=== PATIENT | male | born 1965 | race Caucasian/White ===

== ENCOUNTER 2022-11-01 16:05 | Inpatient (IN) | payer MEDICARE, MEDICAID, SELFPAY ==
[2022-11-01] VITALS (29 sets, daily range): BP systolic 106–159; BP diastolic 45–134; PULSE 38–111; RESP 15–35; TEMP 36.4–36.9; O2SAT 81–98; BMI 40.4
--- NOTE | ~2022-11-01 | XR_ITS ---
EXAMINATION: XR chest port-a-cath/central DATE: 11/12/2022 12:54 INDICATION: Central line placement. TECHNIQUE: A single frontal view of the chest was obtained. COMPARISON: Chest 2 views 11/09/2022, chest CT 11/01/2022 FINDINGS: There are small pleural effusions. There are airspace opacities in the perihilar regions an d at the lung bases. No pneumothorax. Cardiomegaly is noted. There is a left chest wall pacer with le ads in the right atrium and right ventricle. A right internal jugular central venous catheter is seen with tip in the superior vena cava. IMPRESSION: 1. Central line tip in the superior vena cava. 2. Airspace opacities in the perihilar regions and at the lung bases, likely combination of mild pulm onary edema and basilar atelectasis. 3. Small pleural effusions. 4. Cardiomegaly. Reviewed, dictated and finalized at location A. IMPRESSION: 1. Central line tip in the superior vena cava. 2. Airspace opacities in the perihilar regions and at the lung bases, likely co mbination of mild pulmonary edema and basilar atelectasis. 3. Small pleural effusions. 4. Cardiomegaly.
--- NOTE | ~2022-11-01 | XR_ITS ---
EXAMINATION: XR chest 1V portable DATE: 11/04/2022 05:24 INDICATION: intubated TECHNIQUE: frontal view of the chest was obtained. COMPARISON: Chest radiograph dated 11/03/22 FINDINGS: Endotracheal tube tip 4.1 cm above the huan. Nasogastric tube extends below the left hemidiaphragm with distal tip collimated off the study. Central venous catheter extending cephalad from the inferi or vena cava with distal tip in the right ventricle. Likely defibrillator leads projecting over the l eft and right lower chest. Diffuse hazy opacities throughout the right hemithorax with improvement in the more dense consolidati on in the lower lung zone consistent with decreasing likely small to moderate sized posterior layerin g right pleural effusion. There is also been decrease in hazy opacities in the left mid and lower chun g zone with obscuration of the left hemidiaphragm consistent with small left pleural effusion. Associ ated atelectasis and/or pneumonia in the lower lung zones. Cardiomegaly. IMPRESSION: 1. Decrease in now small to moderate right and small left pleural effusions with associated basilar a telectasis and/or pneumonia. 2. Cardiomegaly. Reviewed, dictated and finalized at location A. LE DEALER IMPRESSION: 1. Decrease in now small to moderate right and small left pleural effusions wit h associated basilar atelectasis and/or pneumonia. 2. Cardiomegaly.
--- NOTE | ~2022-11-01 | XR_ITS ---
Portable chest x-ray Comparison: 11/05/2022 Clinical History: Intubated Findings: Endotracheal tube and right IJ line are in satisfactory positions. Moderate right pleural effusion and small left pleural effusion present. Moderate to advanced pulmonary edema pattern presen t. Cardiomediastinal silhouette is stable, with pacemaker device. Bones and soft tissues are unremar kable. Impression: Support tubes, as above. Moderate right pleural effusion and small left pleural effusion. Moderate to advanced pulmonary edema pattern. Reviewed, dictated and finalized at location . TO PICKER Impression: Support tubes, as above. Moderate right pleural effusion and small left pleural effusion. Moderate to advanced pulmonary edema pattern.
--- NOTE | ~2022-11-01 | US_ITS ---
EXAMINATION: US renal BI DATE: 11/02/2022 17:41 INDICATION: XOCHITL TECHNIQUE: Multiple grayscale and Doppler ultrasound images of the kidneys were obtained. COMPARISON: None. FINDINGS: Exam mildly limited by body habitus. The right kidney measures 11.2 x 3.8 x 4.0 cm. The left kidney m easures 9.7 x 5.8 x 5.9 cm. The kidneys demonstrate normal parenchymal echogenicity. Somewhat limited visualization of the left kidney. There is no hydronephrosis. The bladder is empty and therefore not evaluated. IMPRESSION: Urinary bladder not visualized. Otherwise unremarkable renal sonogram findings. Reviewed, dictated and finalized at location K. T SERVICES OFFICER
--- NOTE | ~2022-11-01 | XR_ITS ---
EXAMINATION: XR fl guide central line place DATE: 11/12/2022 12:36 INDICATION: Permacatheter placement TECHNIQUE: 2 fluoroscopic images of the lower neck and upper chest were obtained during procedure per formed by Dr. Marcial. Radiologist was not present for the imaging or procedure. The amount of fluorosco py time used during this procedure was 0.2 minutes. COMPARISON: None. FINDINGS: Initial image demonstrates a wire likely via right axis extending into the superior vena cava along s ross a pair of cardiac pacemaker leads. This been replaced on the subsequent image with a large-bore r ight internal jugular central venous catheter with distal tip at the cephalad-most superior vena cava . Suggestion of a pleural effusion at the periphery of the right apex. No pneumothorax. IMPRESSION: 1. Fluoroscopy utilized during placement of a right internal jugular central venous catheter with dis román tip at the cephalad-most superior vena cava. See procedure note for further detail. Reviewed, dictated and finalized at location L. IMPRESSION: 1. Fluoroscopy utilized during placement of a right internal jugular central ve nous catheter with distal tip at the cephalad-most superior vena cava. See proc edure note for further detail.
--- NOTE | ~2022-11-01 | XR_ITS ---
EXAMINATION: XR chest port-a-cath/central DATE: 11/02/2022 11:12 INDICATION: Central line placement. TECHNIQUE: A single frontal view of the chest was obtained. COMPARISON: Chest CT 11/01/2022, chest single view at 9:30 AM FINDINGS: There are large right and small left pleural effusions. There are airspace opacities in rig ht lung and at left lung base. No pneumothorax. Cardiomegaly is noted. The endotracheal tube tip is 3 .0 cm above the huan. The nasogastric tube tip is beyond the inferior margin of the radiograph, but at least to the stomach. A right internal jugular central venous catheter is seen with tip in the patel perior vena cava. IMPRESSION: 1. Stable large right and small left pleural effusions. 2. Airspace opacities in right lung and at left lung base, consistent with atelectasis versus pneumon ia. Reviewed, dictated and finalized at location A. L DRILL PRESS OPERATOR IMPRESSION: 1. Stable large right and small left pleural effusions. 2. Airspace opacities in right lung and at left lung base, consistent with atel ectasis versus pneumonia.
--- NOTE | ~2022-11-01 | US_ITS ---
EXAMINATION: US abdomen limited DATE: 11/02/2022 17:41 INDICATION: Cirrhosis TECHNIQUE: Multiple grayscale and Doppler ultrasound images of limited portions of the abdomen were o btained. COMPARISON: None available. FINDINGS: Pancreas poorly visualized. The liver is enlarged with normal echogenicity and echotexture. No surface nodularity. Normal hepatopetal flow in the main portal vein. Gallbladder wall thickening to 7 mm. No stone or sludge. The common bile duct measures 8 mm. There was no sonographic Alba sign . IMPRESSION: Hepatomegaly. Gallbladder wall thickening, a nonspecific finding in the setting of liver disease. Dil ated common bile duct, correlate with biliary labs. Reviewed, dictated and finalized at location K. APPLICATIONS SPECIALIST IMPRESSION: Hepatomegaly. Gallbladder wall thickening, a nonspecific finding in the setting of liver disease. Dilated common bile duct, correlate with biliary labs.
--- NOTE | ~2022-11-01 | XR_ITS ---
EXAMINATION: XR chest 1V portable Exam Date/Time: 11/04/2022 19:50 OPTICAL ENGINEERING MANAGER HISTORY: pacemaker insertion Comparison: 11/04/2022 at 12:12 PM. RESULT: Lines, tubes, and devices: New left chest pacer with intact leads. Endotracheal tube terminating 4.7 cm above the huan. NG tube, subdiaphragmatic and terminating out of the [id number]. Right IJ ce ntral line terminating in the upper SVC. Lungs and pleura: Increased hazy opacification of the right hemithorax. No left pneumothorax. Improv ed aeration of the left lung with persistent basilar opacity. Moderate right pleural effusion. Small left pleural effusion. Cardiomediastinal silhouette: Stable. Other: No acute osseous or upper abdominal finding. IMPRESSION: Lines, tubes, and devices in good position. No evident pneumothorax. Persistent left basilar consolid ation/atelectasis. Worsening moderate right pleural effusion. Unchanged small left pleural effusion. Reviewed, dictated and finalized at location K. CAL ENGINEERING MANAGER IMPRESSION: Lines, tubes, and devices in good position. No evident pneumothorax. Persistent left basilar consolidation/atelectasis. Worsening moderate right pleural effus ion. Unchanged small left pleural effusion.
--- NOTE | ~2022-11-01 | XR_ITS ---
EXAMINATION: XR chest 2V DATE: 11/01/2022 16:29 INDICATION: Right pleural effusion TECHNIQUE: AP and lateral views of the chest are obtained. COMPARISON: None available FINDINGS: There are moderate size right and small left pleural effusions. There are airspace opacitie s of the lung bases and right midlung zone. There is no pneumothorax. There is mild thoracic spondylo sis. IMPRESSION: 1. Moderate size right and small left pleural effusions. 2. Airspace opacities of the lung bases and right midlung zone, likely atelectasis. Reviewed, dictated and finalized at location F. AGE TIER IMPRESSION: 1. Moderate size right and small left pleural effusions. 2. Airspace opacities of the lung bases and right midlung zone, likely atelecta sis.
--- NOTE | ~2022-11-01 | CT_ITS ---
EXAMINATION: CT diagnostic chest wo con DATE: 11/01/2022 16:55 INDICATION: Right pleural effusion TECHNIQUE: Computed tomography (CT) of the chest was performed without intravenous contrast. The dose -length product (DLP) was 938.97 mGy-cm. Automated exposure control and iterative reconstruction tech nique were employed. COMPARISON: None FINDINGS: There are moderate size right and small left pleural effusions. There is moderate atelectas is of the right middle and lower lobes. There is mild atelectasis of the left lower lobe. There is mi ld bilateral gynecomastia. There is a 1.7 x 1.4 cm cystic area in the upper outer aspect of the left anterior chest wall. There is enlargement of the main and central pulmonary arteries, consistent with pulmonary hypertension. There is no pneumothorax. Cardiomegaly is noted. There is calcified coronary artery atherosclerosis. There is moderate annular calcification of the aortic and mitral valves. The re is a small volume of ascites visualized in the upper abdomen. There is mild thoracic spondylosis. IMPRESSION: 1. Moderate size right and small left pleural effusions. 2. Moderate atelectasis of the right middle and lower lobes and mild atelectasis of the left lower lo be. 3. Small volume of ascites in the upper abdomen. Reviewed, dictated and finalized at location F. H RICE TENDER IMPRESSION: 1. Moderate size right and small left pleural effusions. 2. Moderate atelectasis of the right middle and lower lobes and mild atelectasi s of the left lower lobe. 3. Small volume of ascites in the upper abdomen.
--- NOTE | ~2022-11-01 | XR_ITS ---
EXAMINATION: XR chest 1V portable DATE: 11/03/2022 06:29 INDICATION: Intubated TECHNIQUE: frontal view of the chest was obtained. COMPARISON: Chest radiograph dated 11/02/22 FINDINGS: Endotracheal tube tip 2.7 cm above the huan. Nasogastric tube extends below the left hemidiaphragm with distal tip collimated off the study. Central venous catheter extends cephalad from the inferior vena cava with distal tip near the apex of the right ventricle. Diffuse hazy airspace opacity throughout the right lung compared to lesser degree in the left midlung zone. More dense retrocardiac consolidation the left lower lung zone note the lateral right lower veena ng zone. No pneumothorax. Cardiomegaly. IMPRESSION: 1. Moderate sized right and small left pleural effusions with associated basilar atelectasis and/or p neumonia. 2. Cardiomegaly. Reviewed, dictated and finalized at location A. ISH LANGUAGE LECTURER IMPRESSION: 1. Moderate sized right and small left pleural effusions with associated basila r atelectasis and/or pneumonia. 2. Cardiomegaly.
--- NOTE | ~2022-11-01 | XR_ITS ---
EXAMINATION: XR chest 1V portable DATE: 11/04/2022 12:29 INDICATION: Central line placement. TECHNIQUE: A single frontal view of the chest was obtained on 2 radiographs. COMPARISON: Chest single view 11/04/2022 at 4:57 AM, chest CT 11/01/2022 FINDINGS: There are airspace opacities in all lung zones bilaterally. There are moderate-sized right and small pleural effusions. No pneumothorax. Cardiomegaly is noted. The endotracheal tube tip is 3.3 cm above the huan. The nasogastric tube tip is beyond the inferior margin of the radiograph, but a t least to the stomach. A right internal jugular central venous catheter is seen with tip in the supe rior vena cava. IMPRESSION: 1. Central line tip in superior vena cava. 2. Moderate-sized right and small left pleural effusions. 3. Diffuse lung disease, likely at least predominantly posterior atelectasis. Pulmonary edema or pneu monia cannot be excluded. 4. Cardiomegaly. Reviewed, dictated and finalized at location A. L RIGHTS REPRESENTATIVE IMPRESSION: 1. Central line tip in superior vena cava. 2. Moderate-sized right and small left pleural effusions. 3. Diffuse lung disease, likely at least predominantly posterior atelectasis. P ulmonary edema or pneumonia cannot be excluded. 4. Cardiomegaly.
--- NOTE | ~2022-11-01 | XR_ITS ---
EXAMINATION: XR chest ET placement, XR abdomen NG/feed tube insert DATE: 11/02/2022 06:02 INDICATION: Vomiting. Endotracheal tube placement. TECHNIQUE: 1.Portable AP view of the chest was obtained. 2. Portable AP view of the abdomen was obtained. COMPARISON: Chest radiograph and CT dated 11/01/2022 FINDINGS: Chest: Endotracheal tube tip 3.7 cm above the huan. Diffuse hazy airspace opacities in the right mid and upper lung zones with more dense consolidation in the bilateral lower lung zones, right greater than left. This includes bilateral small pleural effusions. No pneumothorax. Size is normal. Abdomen: Nasogastric tube tip in proximal side port in the body of the stomach. No dilated gas-filled loops of bowel in the visualized abdomen. IMPRESSION: 1. Endotracheal tube and nasogastric tube in expected positions. 2. Persistent small left and moderate-sized right pleural effusions. 3. Unchanged consolidation in the lower lung zones, right greater than left, which could represent at electasis or pneumonia. Reviewed, dictated and finalized at location A. DERING CLERK IMPRESSION: 1. Endotracheal tube and nasogastric tube in expected positions. 2. Persistent small left and moderate-sized right pleural effusions. 3. Unchanged consolidation in the lower lung zones, right greater than left, wh ich could represent atelectasis or pneumonia.
--- NOTE | ~2022-11-01 | XR_ITS ---
Portable chest x-ray Comparison: 11/04/2022 Clinical History: Intubated Findings: Endotracheal tube, NG tube, and right IJ line are in satisfactory positions. Probable mode rate pulmonary edema pattern with moderate right pleural effusion and small left pleural effusion. Pr obable left lower lobe atelectasis. Cardiomediastinal silhouette is stable, with pacemaker device. B ones and soft tissues are unremarkable. Impression: Moderate pulmonary edema pattern with bilateral pleural effusions, right greater than left, and assoc iated left lower lobe atelectasis. Support tubes and pacemaker device, as above. Reviewed, dictated and finalized at location . H MOSS OPERATOR Impression: Moderate pulmonary edema pattern with bilateral pleural effusions, right greate r than left, and associated left lower lobe atelectasis. Support tubes and pacemaker device, as above.
--- NOTE | ~2022-11-01 | XR_ITS ---
EXAMINATION: XR chest 2V DATE: 11/09/2022 10:31 INDICATION: Shortness of breath. TECHNIQUE: Frontal and lateral views of the chest were obtained. COMPARISON: Chest single view 11/06/2022, CT abdomen and pelvis 11/01/2022 FINDINGS: There are small pleural effusions. There are airspace opacities at the lung bases. No pneum othorax. Cardiomegaly is noted. There is a left chest wall pacer with leads in the right atrium and r ight ventricle. A right internal jugular central venous catheter is seen with tip in the superior lisbet a cava. IMPRESSION: 1. Small pleural effusions with interval improvement. 2. Airspace opacities at the lung bases with interval improvement, likely atelectasis. 3. Cardiomegaly. Reviewed, dictated and finalized at location A. IMPRESSION: 1. Small pleural effusions with interval improvement. 2. Airspace opacities at the lung bases with interval improvement, likely atele ctasis. 3. Cardiomegaly.
--- NOTE | ~2022-11-01 | US_ITS ---
EXAMINATION: US venous doppler [facility] DATE: 11/02/2022 17:41 INDICATION: Acute renal failure . TECHNIQUE: Grayscale images without and with compression and Doppler images of the bilateral lower ex tremity veins were obtained. COMPARISON: None FINDINGS: The right common femoral vein, profunda (deep) femoral vein, femoral vein, popliteal vein, peroneal v ein, posterior tibial veins, gastrocnemius vein, and greater saphenous vein are patent. The left common femoral vein, profunda femoral vein, femoral vein, popliteal vein, peroneal vein, pos terior tibial veins, gastrocnemius vein, and greater saphenous vein are patent. IMPRESSION: 1. Patent bilateral lower extremity veins. No evidence of deep venous thrombosis. Reviewed, dictated and finalized at location K. ILE MACHINERY INSTRUCTOR IMPRESSION: 1. Patent bilateral lower extremity veins. No evidence of deep venous thrombos is.
--- NOTE | 2022-11-01 16:08 | ECG_ITS ---
Measurements Intervals [place] Rate: 49 P: 132 WV: 185 QRS: 4 QRSD: 122 T: 63 QT: 432 QTc: 392 Interpretive Statements SINUS RHYTHM WITH SECOND DEGREE AV BLOCK TYPE I OR II (2:1 AV CONDUCTION) INTRAVENTRICULAR CONDUCTION DELAY DELAYED PRECORDIAL R/S TRANSITION BASELINE ARTIFACT- V4-V6 ABNORMAL ECG NO PREVIOUS ECG AVAILABLE FOR COMPARISON Electronically Signed On 11-02-2022 8:19:40 TOGGLE PRESS OPERATOR by Thony Rincon D.O.
--- NOTE | 2022-11-01 16:11 | ED.SOB ---
HPI - SOB/Dyspnea General Chief Complaint: Shortness of Breath/Dyspnea Stated Complaint: low heart rate, low pulse ox Time Seen by Provider: 11/01/22 16:06 Source: patient and EMS Mode of arrival: EMS Limitations: no limitations History of Present Illness HPI Narrative: 57 years old white male woke up at 10 AM today with shortness of breath. He denies any shortness of breath last night. He denies any fever, chills, nausea, vomiting, chest pain or back pain. History of hypertension, disability secondary to chronic lower back pain. Patient is not on any antiplatelet or anticoagulant medication. Patient does not smoke or drink and uses marijuana for pain control. Patient is fully vaccinated for COVID, denies any sick exposure. Patient reports that his family physician started him on Lasix October 19 because of possible CHF, few days later the Lasix was doubled. Patient reported massive diarrhea 2 days ago. Resolved in 24 hours. He denied any vomiting. Patient denied any trouble urinating Related Data Allergies Allergy/AdvReac Type Severity Reaction Status Date / Time No Known Allergies Allergy Verified 11/01/22 16:16 Review of Systems Review of Systems: All systems reviewed & are unremarkable except as noted in HPI and below Exam Narrative: General appearance: Well-developed, well-nourished Skin: Normal color Head: Normocephalic, nontraumatic Eyes: Clear conjunctiva ENT: Oropharynx normal, ears normal, nose normal Neck: Supple, nontender Chest and respiratory: Airway patent, slight respiratory distress, no accessory muscles, diminution of air entry at the bases with rales mainly on the right side Heart: Regular rate/rhythm Abdomen: Soft, nontender, no organomegaly, quiet bowel sounds Vascular: Normal peripheral pulses, normal capillary refill. Musculoskeletal: Normal range of motion, nontender back Neurologic: Alert and oriented ?3, DENTURE PROCESSOR is normal as tested, no gross motor deficit Course Consultations Consultation #1: Deborah HARDIN Date: 11/01/22 Time: 17:43 Consultation #2: Dr. MARTINEZ. Date: 11/01/22 Time: 18:36 Vital Signs Vital signs: Vital Signs Temperature 36.5 C 11/01/22 16:05 Pulse Rate 69 11/01/22 16:05 Respiratory Rate 19 11/01/22 16:05 Blood Pressure 106/63 11/01/22 16:05 Pulse Oximetry 93 11/01/22 16:05 Oxygen Delivery Room Air 11/01/22 16:05 Temperature 36.5 C 11/01/22 16:05 Pulse Rate 48 L 11/01/22 16:14 Respiratory Rate 19 11/01/22 16:05 Blood Pressure 106/63 11/01/22 16:05 Pulse Oximetry 92 11/01/22 16:14 Oxygen Delivery Room Air 11/01/22 16:14 MDM - SOB/Dyspnea Differential Diagnosis Differential diagnosis: Likely congestive heart failure, community acquired pneumonia, pulmonary embolism and other (Pneumothorax) Lab Data 11/01/22 16:16 11/01/22 16:16 Labs: Lab Results 11/01/22 11/01/22 Range/Units 16:16 16:16 WBC 8.4 (4.5-10.0) K/mm3 RBC 4.38 L (4.6-6.20) M/mm3 Hgb 13.4 L (14.0-18.0) g/dL Hct 42.1 (42.0-52.0) % MCV 96.1 (80-100) fl MCH 30.6 (26-34) pg MCHC 31.8 L (32-36) g/dl RDW 15.3 H (11.5-14.5) % Plt Count 218 (150-375) k/mm3 MPV 10.7 H (7.4-10.4) fl Immature Gran % (Auto) 0.5 (0-0.5) % Neut % (Auto) 80.5 H (45.5-73.1) % Lymph % (Auto) 12.8 L (18.3-44.2) % [place] % (Auto) 5.3 (2.6-8.5) % Eos % (Auto) 0.8 (0-4.4) % Baso % (Auto) 0.1 L (0.2-1.2) % Lymph # (Auto) 1.07 (0.9-3.2) K/mm3 [place] # (Auto) 0.4 (0.1-0.6) K/mm3 Eos # (Auto) 0.1 (0-0.3) K/mm3 Baso # (Auto) 0.0 (0.0-0.1) K/mm3 Abs Immat Gran (auto) 0.04 H (0.00-0.031) K/mm3 Absolute Neuts
--- NOTE | 2022-11-01 16:13 | ECG_ITS ---
Measurements Intervals [place] Rate: 36 P: MA: 0 QRS: 29 QRSD: 128 T: 47 QT: 475 QTc: 371 Interpretive Statements SINUS RHYTHM WITH SECOND DEGREE AV BLOCK (2:1 CONDUCTION), TYPE I OR II INTRAVENTRICULAR CONDUCTION DELAY DELAYED PRECORDIAL R/S TRANSITION ABNORMAL ECG NO PREVIOUS ECG AVAILABLE FOR COMPARISON Electronically Signed On 11-02-2022 6:40:10 MOSQUITO SPRAYER by Thony Rincon D.O.
[2022-11-01 16:22] LABS: Basophils Percent Auto 0.1 % (0.2-1.2); Eosinophils Absolute Auto 0.1 K/mm3 (0-0.3); Eosinophils Percent Auto 0.8 % (0-4.4); Hematocrit 42.1 % (42.0-52.0); Hemoglobin 13.4 g/dL (14.0-18.0); Immature Granulocyte Absolute 0.04 K/mm3 (0.00-0.031); Immature Granulocyte Percent A 0.5 % (0-0.5); Lymphocytes Absolute Auto 1.07 K/mm3 (0.9-3.2); Lymphocytes Percent Auto 12.8 % (18.3-44.2); Mean Corpuscular HGB Conc 31.8 g/dl (32-36); Mean Corpuscular Hemoglobin 30.6 pg (26-34); Mean Corpuscular Volume 96.1 fl (80-100); Mean Platelet Volume 10.7 fl (7.4-10.4); Monocytes Absolute Auto 0.4 K/mm3 (0.1-0.6); Monocytes Percent Auto 5.3 % (2.6-8.5); Neutrophils Absolute Auto 6.8 K/mm3 (1.3-6.7); Neutrophils Percent Auto 80.5 % (45.5-73.1); Platelet Count Result 218 k/mm3 (150-375); Red Blood Count 4.38 M/mm3 (4.6-6.20); Red Cell Distribution Width 15.3 % (11.5-14.5); White Blood Count 8.4 K/mm3 (4.5-10.0)
[2022-11-01 16:34] LABS: Alanine Aminotransferase 14 U/L (6-50); Albumin Level 3.7 g/dL (3.5-5.1); Alkaline Phosphatase 97 U/L (38-126); Anion Gap 9 mmol/L (8-16); Aspartate Amino Transferase 12 U/L (17-59); Bilirubin,Total 0.4 mg/dL (0.2-1.3); Blood Urea Nitrogen 89 mg/dL (9-20); Calcium 7.4 mg/dL (8.4-10.2); Carbon Dioxide 14 mmol/L (22-30); Chloride 102 mmol/L (98-107); Estimated CRCL calculation 15 ml/min; Estimated Glomerular Filt Rate 8; Glucose 113 mg/dL (65-110); Potassium 5.5 mmol/L (3.4-5.0); Sodium 125 mmol/L (137-145)
[2022-11-01 16:47] LABS: Alveolar/Arterial O2 Gradient 45.1 mmHg; Base Excess ABG -16.5 mEq/l (+/-2.0); Fractional Inspired Oxygen 21 %; HCO3 ABG 12.9 mEq/l (22.0-26.0); Oxygen Content ABG 16.2 %vol (16.0-22.0); PCO2 ABG 43.5 mmHg (35.0-45.0); PO2 ABG 52.5 mmHg (80.0-100.0); Total Hemoglobin 14.2 g/dL (12.0-18.0)
[2022-11-01 16:48] LABS: pH ABG 7.089 (7.350-7.450)
[2022-11-01 16:49] LABS: Device ROOM AIR; Modified Allen's Test Pass; Oxygen Saturation ABG 73.8 % (95.0-100.0); Oxyhemoglobin 81.2 % THb (90.0-100.0); Site Drawn LEFT RADIAL
[2022-11-01] MEDS: SODIUM CHLORIDE 0.9% IV 1,000 ML 100 ML IV CONT (17:31)
[2022-11-01 17:43] LABS: Alveolar/Arterial O2 Gradient 133.2 mmHg; Base Excess ABG -17.7 mEq/l (+/-2.0); Fractional Inspired Oxygen 36 %; HCO3 ABG 12.7 mEq/l (22.0-26.0); Oxygen Content ABG 18.7 %vol (16.0-22.0); Oxyhemoglobin 87.9 % THb (90.0-100.0); PCO2 ABG 47.2 mmHg (35.0-45.0); PO2 ABG 68.7 mmHg (80.0-100.0); PO2 FiO2 Ratio Arterial Blood 1.91 %; Total Hemoglobin 15.1 g/dL (12.0-18.0)
[2022-11-01 17:44] LABS: pH ABG 7.047 (7.350-7.450)
[2022-11-01 17:45] LABS: Device NASAL CANNULA; Modified Allen's Test Pass; Oxygen Saturation ABG 84.7 % (95.0-100.0); Site Drawn RIGHT RADIAL
[2022-11-01] MEDS: SODIUM BICARBONATE 8.4% 50 MEQ/50 ML SYRINGE 100 MEQ IV PUSH (18:22)
--- NOTE | 2022-11-01 18:45 | PM.IMHP ---
H&P: HPI History of Present Illness Date/Time: 11/01/22 18:45 Chief Complaint: Weakness. Narrative: This is a 57-year-old male smoker with hypertension, congestive heart failure, and chronic kidney disease with temporary dialysis last fall who presented to the ED via EMS from home for evaluation of weakness. Patient provides the following history and his daughter Dolores (via phone) provides additional information with the patient's permission. He is currently on BiPAP and it is somewhat difficult to understand him. From what I can gather, he and several members of the household have had GI symptoms the last couple of days. Yesterday he did not have an appetite and had a couple of loose stools. He was weak this morning and had difficulties getting himself out of bed this afternoon and he appeared short of breath so his daughter called 911. He has previously gone to [place] and was hospitalized at [facility] in [place] within the last couple of months. He has never been seen at this facility before. According to the triage note the patient's initial heart rate was 36 and his SpO2 was 83% on room air. He was reportedly given a mg of atropine in the field as well as a DuoNeb in route. He says he was feeling better on arrival to the ER with a heart rate of 69. His blood pressures have been stable since arrival. He was started on nasal cannula and transition to BiPAP after ABG showed mixed respiratory and metabolic acidosis which was not improving (pH 7.047, pCO2 47.2, PO2 68.7, bicarb 12.7). Labs were significant for a sodium of 125, potassium 5.5, chloride 102, carbon dioxide 14, BUN 89, creatinine 7.00, calcium 7.4, magnesium 2.6, troponin 0.087, proBNP 49242, lactic acid 0.7. Chest x-ray showed a moderate size right and small left pleural effusions with airspace opacities at the lung bases and right mid lung zone. Chest CT showed the same in addition to a small volume ascites in the upper abdomen. In the ED he was given 2 amps of sodium bicarbonate and a liter of normal saline. Repeat chemistries following this treatment showed worsening hyperkalemia with a potassium of 6.2, BUN 88, creatinine 7.10, sodium 127. Multiple orders were entered for treatment of the hyperkalemia shortly after the critical results were entered. He has since been admitted to the ICU for further treatment and close monitoring. Of note the patient reports that he was started on Lasix within the last month or so in the dose was increased more recently. He has noticed a decrease in urine output since that time. Review of Systems Review of Systems: Twelve systems were reviewed. No fever. He denies headache, sinus congestion, and sore throat. Occasional cough. He has had nausea and decreased appetite as detailed above. No vomiting. Some loose stools yesterday but not today. He has issues urinating sometimes, slow to start his stream with occasional dribbling. Mendoza catheter inserted this evening yielded only 50 mL of urine. He had temporary dialysis with a hospitalization a couple of months ago. No syncope or near syncope. Except as documented, all other systems were reviewed and are negative. ON LICENSE OF [facility] Past Medical History Medical History Chronic kidney disease Heart failure of unknown type History of pneumothorax Hypertension Restless legs syndrome Tobacco dependence Surgical History Surgical History History of hernia repair Family History Family History Other Heart disease Hypertension Social History Social History Social History: Surrogate medical decision maker: Dolores Cho, daughter. Code status: Full code. Smoking packs per day: 0.5 Smoking cigarettes per day: 10.0 Years smoked: 20 Smoking pack-years: 10.00 Smoking statu
[2022-11-01 19:11] LABS: Basophils Percent Auto 0.1 % (0.2-1.2); Eosinophils Percent Auto 0.1 % (0-4.4); Hemoglobin 14.5 g/dL (14.0-18.0); Immature Granulocyte Absolute 0.04 K/mm3 (0.00-0.031); Immature Granulocyte Percent A 0.4 % (0-0.5); Lymphocytes Absolute Auto 0.39 K/mm3 (0.9-3.2); Lymphocytes Percent Auto 4.3 % (18.3-44.2); Mean Corpuscular HGB Conc 30.9 g/dl (32-36); Mean Corpuscular Hemoglobin 29.7 pg (26-34); Mean Corpuscular Volume 96.3 fl (80-100); Mean Platelet Volume 10.8 fl (7.4-10.4); Monocytes Absolute Auto 0.1 K/mm3 (0.1-0.6); Monocytes Percent Auto 0.9 % (2.6-8.5); Neutrophils Absolute Auto 8.6 K/mm3 (1.3-6.7); Neutrophils Percent Auto 94.2 % (45.5-73.1); Platelet Count Result 189 k/mm3 (150-375); Red Blood Count 4.88 M/mm3 (4.6-6.20); Red Cell Distribution Width 15.3 % (11.5-14.5); White Blood Count 9.1 K/mm3 (4.5-10.0)
[2022-11-01 19:27] LABS: Alanine Aminotransferase 15 U/L (6-50); Alkaline Phosphatase 105 U/L (38-126); Anion Gap 11 mmol/L (8-16); Aspartate Amino Transferase 12 U/L (17-59); Bilirubin,Total 0.5 mg/dL (0.2-1.3); Blood Urea Nitrogen 88 mg/dL (9-20); Calcium 7.5 mg/dL (8.4-10.2); Carbon Dioxide 15 mmol/L (22-30); Chloride 101 mmol/L (98-107); Estimated CRCL calculation 15 ml/min; Estimated Glomerular Filt Rate 8; Glucose 128 mg/dL (65-110); Magnesium 2.6 mg/dL (1.6-2.3); Potassium 6.2 mmol/L (3.4-5.0); Sodium 127 mmol/L (137-145)
[2022-11-01 19:30] LABS: INR 1.2; Prothrombin Time 14.6 Seconds (11.1-14.7)
[2022-11-01 19:31] LABS: Partial Thromboplastin Time 41.6 SECONDS (22.3-36.8)
[2022-11-01 19:39] LABS: NT Pro B Type Natriuretic Pept 21100 pg/mL (19.9-100); Troponin I 0.087 ng/mL (0.000-0.034)
[2022-11-01 19:44] LABS: Alveolar/Arterial O2 Gradient 188.9 mmHg; Base Excess ABG -14.8 mEq/l (+/-2.0); Carboxyhemoglobin 2.2 % THb (0-2.0); Fractional Inspired Oxygen 44 %; HCO3 ABG 16.2 mEq/l (22.0-26.0); Methemoglobin ABG 0.4 %THb (0-1.5); Oxygen Content ABG 17.6 %vol (16.0-22.0); PCO2 ABG 59.8 mmHg (35.0-45.0); PO2 ABG 56.7 mmHg (80.0-100.0); PO2 FiO2 Ratio Arterial Blood 1.29 %; Reduced Hemoglobin 14.5 %THb (0-5.0); Total Hemoglobin 15.1 g/dL (12.0-18.0)
[2022-11-01 19:45] LABS: D Dimer 3.52 ug/mL (<0.48)
[2022-11-01 19:47] LABS: pH ABG 7.052 (7.350-7.450)
[2022-11-01 19:48] LABS: Oxygen Saturation ABG 75.5 % (95.0-100.0); Oxyhemoglobin 82.9 % THb (90.0-100.0)
[2022-11-01 19:49] LABS: Device NASAL CANNULA; Modified Allen's Test Pass; Site Drawn LEFT RADIAL
[2022-11-01 20:00] LABS: Lactic Acid Reflex 0.7 mmol/L (0.7-2.0)
[2022-11-01 20:05] LABS: Appearance Urine Cloudy (Clear); Bacteria Urine None Seen /hpf; Bilirubin Urine Negative (Negative); Color Urine Yellow (Yellow); Glucose Urine UA Negative (Negative); Ketones Urine Trace mg/dL (Negative); Leukocyte Esterase Ur 2+ LEU/UL (Negative); Need Manual Microscopic Reviewed; Nitrate Urine Negative (Negative); Protein Urine 3+ mg/dL (Negative); RBC Urine 0-2 /hpf (0-2); Specific Grav Ur 1.018 (1.001-1.035); Squamous Epithelial Cell Urine None seen /hpf (Few); WBC Urine >100 /hpf
[2022-11-01 20:26] LABS: Add Urine Microscopic? YES
--- NOTE | 2022-11-01 21:25 | PC.NURSE ---
This patient, Chau Cho, was admitted to Intensive Care Unit-2. Patient/family oriented to hospital policies and general routines including ID bracelet, bed and alarms, visiting hours, pain management, procedures, bathroom and other care routines, personal items, smoking policy, room service/diet, and visiting hours. Information on how to activate the Rapid Response Team has been discussed. Patient/Family are encouraged to report perceived risks to care and to ask questions if they do not understand what they are told or what they should do.
[2022-11-01] MEDS: SODIUM BICARBONATE 8.4% 150 MEQ in WATER, STERILE FOR INJECTION 950 ML 50 MEQ IV CONT (21:47)
[2022-11-01] MEDS: DEXTROSE 50% 25 GM/50 ML SYRINGE IV PUSH (21:54)
[2022-11-01] MEDS: SODIUM POLYSTYRENE SULFONONATE 15 GM/60 ML BTL 30 GM PO (21:54)
[2022-11-01] MEDS: INSULIN HUMAN REGULAR (*BKC) 100 UNITS/ML 10 UNITS IV PUSH (21:59)
[2022-11-01] MEDS: CALCIUM GLUCONATE 1,000 MG/10 ML VIAL 1000 MG IV PUSH (22:28)
[2022-11-02] VITALS (27 sets, daily range): BP systolic 100–152; BP diastolic 39–73; PULSE 38–81; RESP 18–24; TEMP 36.2–37.3; O2SAT 87–100
[2022-11-02 00:20] LABS: Anion Gap 13 mmol/L (8-16); Blood Urea Nitrogen 90 mg/dL (9-20); Calcium 8.1 mg/dL (8.4-10.2); Carbon Dioxide 13 mmol/L (22-30); Chloride 102 mmol/L (98-107); Estimated CRCL calculation 14 ml/min; Estimated Glomerular Filt Rate 8; Glucose 140 mg/dL (65-110); Potassium 5.9 mmol/L (3.4-5.0); Sodium 128 mmol/L (137-145)
[2022-11-02 00:41] LABS: Alveolar/Arterial O2 Gradient 292.9 mmHg; Base Excess ABG -12.5 mEq/l (+/-2.0); Carboxyhemoglobin 0.5 % THb (0-2.0); Fractional Inspired Oxygen 60 %; HCO3 ABG 17.1 mEq/l (22.0-26.0); Methemoglobin ABG 0.3 %THb (0-1.5); Oxygen Content ABG 18.6 %vol (16.0-22.0); Oxygen Saturation ABG 89.8 % (95.0-100.0); Oxyhemoglobin 93.1 % THb (90.0-100.0); PCO2 ABG 54.2 mmHg (35.0-45.0); PO2 ABG 75.3 mmHg (80.0-100.0); PO2 FiO2 Ratio Arterial Blood 1.25 %; Reduced Hemoglobin 6.1 %THb (0-5.0); Total Hemoglobin 14.2 g/dL (12.0-18.0)
[2022-11-02 00:42] LABS: Troponin I 0.075 ng/mL (0.000-0.034)
[2022-11-02 00:43] LABS: Device NON-INVASIVE VENT; Modified Allen's Test Pass; Site Drawn RIGHT RADIAL; pH ABG 7.117 (7.350-7.450)
[2022-11-02 00:44] LABS: Non-Invasive Expiratory Pressure 8 CMH2O; Non-Invasive Inspiratory Pressure 16 CMH2O; Non-Invasive Vent Rate 22 /MIN
[2022-11-02] MEDS: INSULIN HUMAN REGULAR (*BKC) 100 UNITS/ML 10 UNITS IV PUSH ×2 (01:54→16:29)
[2022-11-02] MEDS: CALCIUM GLUCONATE 1,000 MG/10 ML VIAL 1000 MG IV PUSH (01:55)
[2022-11-02] MEDS: SODIUM BICARBONATE 8.4% 50 MEQ/50 ML SYRINGE 100 MEQ IV PUSH ×2 (01:55→16:29)
[2022-11-02] MEDS: DEXTROSE 50% 25 GM/50 ML SYRINGE IV PUSH ×2 (01:55→16:28)
[2022-11-02] MEDS: DOPamine 400 MG/D5W 250 ML 400 MG/250 ML BAG 11.97 MG IV CONT (03:05)
[2022-11-02] MEDS: ONDANSETRON INJ 4 MG/2 ML VIAL IV PUSH (04:22)
--- NOTE | 2022-11-02 05:04 | PCRCNOTE ---
Patient began vomitting, bipap mask removed @ 0430 and high flow therapy via airvo initiated 60L 90%
[2022-11-02] MEDS: MIDAZOLAM HCL (*CRX) 2 MG/2 ML VIAL 4 MG IV PUSH ×2 (05:13→11:06)
[2022-11-02] MEDS: ROCURONIUM BROMIDE 50 MG/5 ML VIAL 100 MG IV PUSH (05:14)
--- NOTE | 2022-11-02 05:15 | PC.NURSE ---
Patient started vomiting, took off bipap and placed on High flow therapy. Patient then respiratory declined and went unresponsive. Dr Huston at bedside with RT and intubated. Patient's heart rate 30s but with pulse, placed on pacer pads and externally paced. Dopamine increased to 5mcg.
[2022-11-02] MEDS: MIDAZOLAM HCL (*CRX) 2 MG/2 ML VIAL IV PUSH (05:25)
--- NOTE | 2022-11-02 05:25 | PC.NURSE ---
Daughter Dolores updated on events by lumber sales supervisor.
[2022-11-02] MEDS: RAPID SEQUENCE INTUBATION KIT 1 EACH (05:35)
[2022-11-02] MEDS: FENTANYL 2,500MCG/NS250ML(*CRX 2,500 MCG/250 ML BAG IV CONT (05:36)
[2022-11-02] MEDS: MIDAZOLAM 100MG/NS 100ML(*CRX) 100 MG/100 ML BAG IV CONT (05:38)
[2022-11-02] MEDS: fentaNYL CITRATE INJ (*CRX) 100 MCG/2 ML VIAL 50 MCG IV PUSH (05:39)
--- NOTE | 2022-11-02 05:40 | P.PCNBED_ITS ---
Procedures Intubation Intubation Date: 11/02/22 Intubation Time: 05:15 A pre-procedural Time-Out was completed immediately before starting the procedure and confirmed: Patient Identification, Site, Procedure, Patient Position and the Availability of Requisite Equipment: Yes Sedative: versed Mg given: 4 Paralytic: rocuronium Mg given: 100 Laryngoscope: fiber optic video scope ET tube size: 8 Tube secured depth (cm): 25 Tube secured location: lips Tube placement confirmation: visualized tube passing through cords, equal breath sounds bilaterally, no breath sounds over epigastrium and confirmation by capnometry Patient tolerated procedure: well Intubation complications: none Additional comments: The patient was difficult to bag and we had difficulty getting his oxygen s aturations up. Subsequently patient was intubated with sats of 81%. Sats never dropped below 80% and immediately after ET tube was placed sats improved in post intubation on ventilator patient is satting 96%. Post intubation chest x-ray was reviewed and ET tube was approximately 4 cm from the huan patient has a elevated right hemidiaphragm.
[2022-11-02 05:47] LABS: Basophils Percent Auto 0.2 % (0.2-1.2); Hematocrit 42.3 % (42.0-52.0); Immature Granulocyte Absolute 0.03 K/mm3 (0.00-0.031); Immature Granulocyte Percent A 0.5 % (0-0.5); Lymphocytes Absolute Auto 0.22 K/mm3 (0.9-3.2); Lymphocytes Percent Auto 3.3 % (18.3-44.2); Mean Corpuscular HGB Conc 30.7 g/dl (32-36); Mean Corpuscular Hemoglobin 30.1 pg (26-34); Mean Corpuscular Volume 97.9 fl (80-100); Mean Platelet Volume 10.8 fl (7.4-10.4); Monocytes Absolute Auto 0.1 K/mm3 (0.1-0.6); Monocytes Percent Auto 0.9 % (2.6-8.5); Neutrophils Absolute Auto 6.3 K/mm3 (1.3-6.7); Neutrophils Percent Auto 95.1 % (45.5-73.1); Platelet Count Result 181 k/mm3 (150-375); Red Blood Count 4.32 M/mm3 (4.6-6.20); Red Cell Distribution Width 15.3 % (11.5-14.5); White Blood Count 6.6 K/mm3 (4.5-10.0)
[2022-11-02 05:58] LABS: Alanine Aminotransferase 14 U/L (6-50); Albumin Level 3.9 g/dL (3.5-5.1); Alkaline Phosphatase 106 U/L (38-126); Aspartate Amino Transferase 10 U/L (17-59); Bilirubin,Total 1.1 mg/dL (0.2-1.3); Creatine Kinase < 20 U/L (55-170); Lactic Acid Reflex 1.1 mmol/L (0.7-2.0); Phosphorus 7.5 mg/dL (2.5-4.5)
[2022-11-02 06:01] LABS: Alanine Aminotransferase 13 U/L (6-50); Albumin Level 3.7 g/dL (3.5-5.1); Alkaline Phosphatase 118 U/L (38-126); Anion Gap 15 mmol/L (8-16); Aspartate Amino Transferase 9 U/L (17-59); Bilirubin,Total 1.4 mg/dL (0.2-1.3); Blood Urea Nitrogen 86 mg/dL (9-20); Calcium 7.4 mg/dL (8.4-10.2); Carbon Dioxide 14 mmol/L (22-30); Chloride 97 mmol/L (98-107); Estimated CRCL calculation 19 ml/min; Estimated Glomerular Filt Rate 11; Glucose 381 mg/dL (65-110); Magnesium 2.5 mg/dL (1.6-2.3); Potassium 5.1 mmol/L (3.4-5.0); Sodium 126 mmol/L (137-145)
[2022-11-02 06:33] LABS: Thyroid Stimulating Hormone Reflex 0.576 uIU/mL (0.465-4.68)
[2022-11-02 06:34] LABS: Hepatitis B Surface Antigen Negative (Negative)
--- NOTE | 2022-11-02 06:38 | PM.CCN ---
Critical Care Event Note Summary Code activated: Yes Narrative: 11/02/2022 approximately 05:10 The patient had been admitted to the hospital for hyperkalemia severe metabolic acidosis, and respiratory failure. He was found have hyperkalemia be profoundly bradycardic. Throughout the course of his ICU admission the patient had various rhythms on telemetry. To be flipping between a type 2 av block and a third-degree block. I recommended a cardiology be consulted and strap making machine operator recommended the cardiology consult immediately. Cardiology place patient on 2.5 mg of dopamine. I had given order to give repeat treatment for hyperkalemia given patient's still high potassium of 5.9 and given his cardiac rhythm changes he got doses of calcium 2 and sips of sodium bicarb and insulin and glucose. At around 04:30 in the morning patient began vomiting and had to be taken off of the BiPAP. He was placed on a high-flow nasal cannula and non-rebreather. He was maintaining his saturations initially. However around 10 minutes after 5 the patient began having decreased level of consciousness and oxygen saturations dropped to 81%. Patient was unable to recover his oxygenation. His heart rate was already in the 30s to 50s with his heart block but was more persistently in the 30s. The a code was called. Throughout that time patient had maintained his blood pressure. Patient received sedation with etomidate and Versed and was intubated with an 8.0 ET tube. See details of procedure note. The patient was placed on external pacer in preparation for intubation to help prevent any worsening of patient's bradycardia resulting in cardiac arrest. The patient was paced with a rate of 70 through the procedure. The patient maintained his blood pressures are at the procedure. He was difficult to bag up to pre oxygen 8 and ultimately was intubated while his oxygen saturations were still reading 81%. PEEP valve was used. ER physician came to the bedside to assist if needed. However I performed procedure. The patient received Versed and rocuronium for sedation. After intubation the patient immediately had improvement in oxygen saturations up to 90-91%. Patient was placed on ventilator tidal volume 400 with low tidal volume strategies as respiratory therapy reports to me that this patient has had prior pneumothoraces. His PEEP was placed at 8 respiratory rate at 22 and 100% FiO2. Oxygen saturations improved to 96%. Post intubation ABG was reviewed and demonstrated metabolic acidosis with normal pCO2 and PO2 of 101. Will defer any further ventilator changes to the strap making machine operator. After intubation the patient rhythm had has stabilized since heart rate was initially running between 55 and the low 60s. His pacemaker had been turned off for about half an hour and then the patient began having bradycardic events down to the low 30s. Subsequently external pacer was turned back on the 20 amps with APAP rate of 50. The patient is pretty persistently pacing with the external pacer. The patient had been placed on sedation with fentanyl and Versed. I requested nursing staff increase the patient's dopamine to 5 mg an hour. At the end of my shift care was turned over to the strap making machine operator. Sign out was provided to the strap making machine operator. Will ask nursing staff to update cardiology has to the change in the patient's condition. A code blue was called but ultimately CPR was never initiated. Patient never lost pulse or blood pressure. Post procedure labs were were reviewed and demonstrated improving creatinine, improved potassium with only borderline persistent hyperkalemia and relatively flat troponin. 40 minutes was spent in critical care activities in exclusion of procedures. Due to a high probability of clinically significant, life threatening deterioration, the patient required my highest level of preparedness to intervene emergently and I personally spent this critical care time directly and personally deshawn
[2022-11-02 06:41] LABS: Alveolar/Arterial O2 Gradient 568.6 mmHg; Base Excess ABG -9.7 mEq/l (+/-2.0); Fractional Inspired Oxygen 100 %; HCO3 ABG 17.5 mEq/l (22.0-26.0); Methemoglobin ABG 0.3 %THb (0-1.5); Oxygen Content ABG 19.4 %vol (16.0-22.0); Oxygen Saturation ABG 96.6 % (95.0-100.0); Oxyhemoglobin 96.5 % THb (90.0-100.0); PCO2 ABG 42.7 mmHg (35.0-45.0); PO2 ABG 101.7 mmHg (80.0-100.0); PO2 FiO2 Ratio Arterial Blood 1.02 %; Reduced Hemoglobin 3.2 %THb (0-5.0); Total Hemoglobin 14.2 g/dL (12.0-18.0)
[2022-11-02 06:43] LABS: Device VENTILATOR; Modified Allen's Test Pass; Site Drawn LEFT RADIAL
[2022-11-02 06:44] LABS: Arterial Blood Gas PEEP 8 cmH2O; Arterial Blood Gas Tidal Volume 400 ml; Arterial Blood Gas Vent Mode CMV; Arterial Blood Gas Ventilator rate 22 /MIN
[2022-11-02 06:51] LABS: Hepatitis B Surface Anti Res Negative
[2022-11-02 08:12] LABS: Eosinophil Urine None Seen % (None Seen)
[2022-11-02 08:13] LABS: Urine Eos QC 2nd Tech Confirmed
[2022-11-02] MEDS: SODIUM ZIRCONIUM CYCLOSILICATE 10 GM POWD.PACK FEED TUBE ×3 (09:04→21:00)
[2022-11-02] MEDS: PANTOPRAZOLE SODIUM IV 40 MG VIAL IV PUSH (09:04)
[2022-11-02 09:26] LABS: Glucose Point of Care 132 mg/dl (65-105)
[2022-11-02] MEDS: MINERAL OIL/WHITE PETROLATUM OINTMENT 1 APPLIC EACH EYE ×2 (09:31→20:16)
--- NOTE | 2022-11-02 09:36 | WPDCNINT ---
Assessment and Plan Assessment and plan (1) Acute respiratory failure: Code(s): J96.00 - Acute respiratory failure, unspecified whether with hypoxia or hypercapnia Status: Acute Assessment and Plan: Patient intubated 3/6 in ICU ABG ventilator settings and chest x-ray reviewed Continue full mechanical ventilation support to prevent hypoxemia/hypercarbia and end organ damage. Low tidal volume ventilation strategy to prevent volutrauma Will attempt SBT when ready to wean. CT chest showed 1. Moderate size right and small left pleural effusions. 2. Moderate atelectasis of the right middle and lower lobes and mild atelectasis of the left lower lobe. 3. Small volume of ascites in the upper abdomen He may need thoracentesis on the right side but will wait until he is hemodynamically stable (2) [id number] kidney injury: Code(s): N17.9 - Acute kidney failure, unspecified; N18.9 - Chronic kidney disease, unspecified Status: Acute Assessment and Plan: patient has chronic kidney disease and a it seems the patient was temporarily on dialysis last year although I do not have records to confirm that. I am trying to obtain records from [facility]. I spoke to Dr. Martins from Nephrology. We discussed option of initiating hemodialysis. He recommends waiting at this time considering patient's creatinine is improving and patient also is unstable from cardiac standpoint. He may still need hemodialysis if kidneys to not fully recover or further deteriorate. Treat hyperkalemia as below continue IV fluids with bicarb for acidosis monitor urine output electrolytes and creatinine (3) Hyperkalemia: Code(s): E87.5 - Hyperkalemia Status: Acute Assessment and Plan: Patient was treated with bicarb insulin D50 and potassium level is improving to 5.1 Lokelma ordered monitor potassium level may need hemodialysis (4) Metabolic acidosis with respiratory acidosis: Code(s): E87.4 - Mixed disorder of acid-base balance Status: Acute Assessment and Plan: improving with IV fluid with bicarb (5) Anasarca: Code(s): R60.1 - Generalized edema Status: Acute Assessment and Plan: patient has bilateral pleural effusion, ascites and scrotal edema renal failure, heart failure (6) Heart block: Code(s): I45.9 - Conduction disorder, unspecified Status: Acute Assessment and Plan: patient is having variable heart block intermittently in third-degree AV block and at times he is in second-degree AV block he was started on dopamine infusion overnight and then placed on transcutaneous pacing after intubation I have decreased transcutaneous pacemaker to 40 and dopamine to 2.5 I have discussed with Cardiology and Dr. Irvin is planning to place a transvenous pacemaker once she is able to obtain consent from patient's family. His potassium level is improving I was close to close to normal. acidosis improving with mechanical ventilation and by IV bicarb echo is ordered (7) Murmur: Code(s): R01.1 - Cardiac murmur, unspecified Status: Acute Assessment and Plan: echo is ordered (8) Shock: Code(s): R57.9 - Shock, unspecified Status: Acute Assessment and Plan: patient is on low-dose dopamine and his shock is mostly cardiogenic as patient presented with normal WBC, has been afebrile and has normal lactic acid level on presentation continue dopamine infusion and pacing will place central venous catheter for better and secure IV access considering patient's need for vasopressors Plan DVT prophylaxis - Lovenox Stress ulcer prophylaxis - PPI Nutrition - NPO at this time Code Status - Full Code I tried several times to contact family. The 's number listed in the chart is not working and we have left multiple voice mail message is for his daughter without any response at this time.
--- NOTE | 2022-11-02 10:08 | P.CONNP_ITS ---
Assessment and Plan Assessment and plan (1) XOCHITL (acute kidney injury): Code(s): N17.9 - Acute kidney failure, unspecified Status: Acute Assessment and Plan: * multifactorial etiology: * prerenal factors * shock * heart block * diuretics VP & GENERAL COUNSEL * evaluation to date: * urine electrolytes prerenal * urine eosinophils negative * CPK low * some improvement noted with interventions to date * remains at risk for requiring PLASMA TABLE OPERATOR/dialysis again * hold dialysis for now given cardiac issues and relative improvement in renal f unction * follow trend of repeat labs and UOP (2) Chronic kidney disease, stage IV (severe): Code(s): N18.4 - Chronic kidney disease, stage 4 (severe) Status: Chronic Assessment and Plan: * on discharge from [facility] in July 2022, his creatinine was 3.1mg/dl * prior to his hospitalization in May 2022, his creatinine was running 2.3mg/dl * CKD thought to be secondary to HTN, DM, and obesity (3) Hyperkalemia: Code(s): E87.5 - Hyperkalemia Status: Acute Assessment and Plan: * responded to medical therapy in the form of IV bicarb, IV insulin, and D50 * lokelma ordered * follow trend of repeat K+ levels (4) Acute respiratory failure: Code(s): J96.00 - Acute respiratory failure, unspecified whether with hypoxia or hypercapnia Status: Acute Assessment and Plan: * due to volume overload and associated heart block * intubated due to worsening hypoxia and altered mental status * continue ventilator management for now * consider thoracentesis once more stable * weaning as tolerated (5) Metabolic acidosis with respiratory acidosis: Code(s): E87.4 - Mixed disorder of acid-base balance Status: Acute Assessment and Plan: * improvement with bicarb IVFs and mechanical ventilation * follow parameters (6) Heart block: Code(s): I45.9 - Conduction disorder, unspecified Status: Acute Assessment and Plan: * as noted by events overnight - variable heart block * transcutaneous pacing in progress with addition of dopamine gtt * Cardiology following * noted plans for transvenous pacemaker * follow-up on ordered Echo (7) Shock: Code(s): R57.9 - Shock, unspecified Status: Acute Assessment and Plan: * thought to be cardiogenic in nature * on dopamine and pacing * follow trend of hemodynamics Discussed case with Dr. Santana. Greater than 20 minutes was spent in review of his electronic records here at [facility] as well as his records at [facility] with regard to his acute kidney injury, his chronic kidney disease, necessity of renal placement therapy/dialysis, and his complicated hospital course while was hospitalized in late May/early June 2022 at [facility] as well. Will continue to follow. History of Present Illness Reason for Consult Consult date: 11/02/22 Reason for consult: acute renal failure (on chronic kidney disease) Chief Complaint Chief complaint: pleural effusion,metabolic acidosis,xochitl History of Present Illness Narrative: All of the information I have obtained is from review of the electronic medical record as well as discussion with the physician/nurses involved in the patient's care as he is unable to provide me with any history as he is currently intubated and on mechanical ventilation. The patient is a 57-year-old with a past medical history as outlined below who
--- NOTE | 2022-11-02 10:08 | PM.CNNEP ---
Assessment and Plan Assessment and plan (1) XOCHITL (acute kidney injury): Code(s): N17.9 - Acute kidney failure, unspecified Status: Acute Assessment and Plan: multifactorial etiology: prerenal factors shock heart block diuretics MASTER MECHANIC evaluation to date: urine electrolytes prerenal urine eosinophils negative CPK low some improvement noted with interventions to date remains at risk for requiring RFID DEVELOPER/dialysis again hold dialysis for now given cardiac issues and relative improvement in renal function follow trend of repeat labs and UOP (2) Chronic kidney disease, stage IV (severe): Code(s): N18.4 - Chronic kidney disease, stage 4 (severe) Status: Chronic Assessment and Plan: on discharge from [facility] in July 2022, his creatinine was 3.1mg/dl prior to his hospitalization in May 2022, his creatinine was running 2.3mg/dl CKD thought to be secondary to HTN, DM, and obesity (3) Hyperkalemia: Code(s): E87.5 - Hyperkalemia Status: Acute Assessment and Plan: responded to medical therapy in the form of IV bicarb, IV insulin, and D50 lokelma ordered follow trend of repeat K+ levels (4) Acute respiratory failure: Code(s): J96.00 - Acute respiratory failure, unspecified whether with hypoxia or hypercapnia Status: Acute Assessment and Plan: due to volume overload and associated heart block intubated due to worsening hypoxia and altered mental status continue ventilator management for now consider thoracentesis once more stable weaning as tolerated (5) Metabolic acidosis with respiratory acidosis: Code(s): E87.4 - Mixed disorder of acid-base balance Status: Acute Assessment and Plan: improvement with bicarb IVFs and mechanical ventilation follow parameters (6) Heart block: Code(s): I45.9 - Conduction disorder, unspecified Status: Acute Assessment and Plan: as noted by events overnight - variable heart block transcutaneous pacing in progress with addition of dopamine gtt Cardiology following noted plans for transvenous pacemaker follow-up on ordered Echo (7) Shock: Code(s): R57.9 - Shock, unspecified Status: Acute Assessment and Plan: thought to be cardiogenic in nature on dopamine and pacing follow trend of hemodynamics Discussed case with Dr. Santana. Greater than 20 minutes was spent in review of his electronic records here at [facility] as well as his records at [facility] with regard to his acute kidney injury, his chronic kidney disease, necessity of renal placement therapy/dialysis, and his complicated hospital course while was hospitalized in late May/early June 2022 at [facility] as well. Will continue to follow. History of Present Illness Reason for Consult Consult date: 11/02/22 Reason for consult: acute renal failure (on chronic kidney disease) Chief Complaint Chief complaint: pleural effusion,metabolic acidosis,xochitl History of Present Illness Narrative: All of the information I have obtained is from review of the electronic medical record as well as discussion with the physician/nurses involved in the patient's care as he is unable to provide me with any history as he is currently intubated and on mechanical ventilation. The patient is a 57-year-old with a past medical history as outlined below who presented to [facility] Emergency Room via EMS for further evaluation of generalized weakness. Apparently, for last several days, multiple family members have been dealing with GI symptoms. The patient himself then developed poor oral intake in association with some mild diarrhea. On the day of admission, he had difficulty getting out of bed and apparently was mildly short of breath and so his daughter called 911 for further assessment. It should be noted
[2022-11-02] MEDS: PERFLUTREN LIPID MICROSPHERES 1.5 ML VIAL DILUTED TO 10 ML TOTAL VOLUME IV PUSH (10:29)
--- NOTE | 2022-11-02 11:11 | WPDPROCEDUR ---
Procedures Central Line Placement Right IJ: Central Line Date: 11/02/22 Central Line Time: 10:40 Discussed w/ the patient/family/POA,the placement of a central venous catheter, including its clinical necessity/indication & associated potential risks, benifits and alternatives.: Yes The patient/family/POA understand(s) and acknowledge(s) the need to proceed with central venous catheter insertion as an important element of the patient's clinical management.: Yes Consent: I have discussed with the patient and/or surrogate, the non-emergent placement of a central venous catheter, including its clinical necessity/indication and associated potential risks and complications. The patient and/or surrogate understand(s) and acknowledge(s) the need to proceed with central venous catheter insertion as an important element of the patient's clinical management. Time Out Performed: Yes Patient Position: supine Patient placed on monitor/pulse ox: Yes Provider Prep: mask, sterile gown, sterile gloves, Max. sterile barrier precautions, cap and hand hygiene with conventional soap/water or alcohol based hand rub Central line prep: Povidone-Iodine 1% Sterile US Technique with sterile gel/sterile probe covers: Yes Central line lumen inserted: triple Length (cm): 16 Depth of Insertion (cm): 16 Post Procedure: sutured in place, good blood return, all ports aspirated, flushed, capped, transparent dressing, antimicrobial product and aseptic technique maintained throughout procedure Post procedure x-ray: tip of catheter in good position and no pneumothorax seen Patient tolerated procedure: well Complications: none
[2022-11-02 11:29] LABS: Creatinine Urine 268.8 mg/dL; Urea Random Urine 395 MG/DL
[2022-11-02 11:36] LABS: Sodium Urine Random 9 meq/L
--- NOTE | 2022-11-02 11:47 | PC.NURSE ---
Transferred to Brim Pouncer Machine Operator via bed without issue. receiver/laborer RN x3 at bedside.
--- NOTE | 2022-11-02 11:53 | WPDMODSED ---
Moderate Sedation Note-Pt Data Patient Data Diagnosis: High grade AVB, complete heart block Present Complaint: High grade AVB, complete heart block Procedure to be performed/Plan: Placement of temporary transvenous pacer Allergies Allergy/AdvReac Type Severity Reaction Status Date / Time No Known Allergies Allergy Verified 11/01/22 16:16 Home Medications Medication Instructions Recorded Confirmed Type amlodipine 10 mg tablet 10 mg PO HS 11/01/22 11/01/22 History carvedilol 3.125 mg tablet 3.125 mg PO BID 11/01/22 11/01/22 History Current Medications: Active Medications Acetaminophen (Acetaminophen 325 Mg Tablet) 650 mg PO Q6H PRN PRN Reason: Mild Pain (1-3) or Fever Dextrose (Dextrose 50% 25 Gm/50 Ml Syringe) 12.5 gm IV PUSH PRN PRN; Protocol PRN Reason: Hypoglycemia Enoxaparin Sodium (Enoxaparin 30 Mg/0.3 Ml Syringe) 30 mg SUB-Q DAILY ALLY Glucagon (Glucagon For Inj 1 Mg Vial) 1 mg IM PRN PRN; Protocol PRN Reason: Hypoglycemia Glucose (Glucose Oral Gel 15 Gm Of Glucse In 37.5 Gm Tube) 15 gm PO PRN PRN; Protocol PRN Reason: Hypoglycemia Sodium Bicarbonate 150 meq/ (Sterile Water) 1,100 mls @ 50 mls/hr IV CONT .Q22H [facility] Last Admin: 11/01/22 21:47 Dose: 50 mls/hr Dextrose (Dextrose 5% 1,000 Ml) 1,000 mls @ 100 mls/hr IVPB PRN PRN; Protocol PRN Reason: Hypoglycemia Dopamine HCl/Dextrose (Dopamine 400 Mg/D5w 250 Ml) 400 mg in 250 mls @ 11.972 mls/hr IV CONT .[id number] [facility] Last Infusion: 11/02/22 08:00 Dose: 2.5 mcg/kg/min, 11.97 mls/hr Fentanyl Citrate (Fentanyl 2,500 Mcg/Ns 250 Ml) 2,500 mcg in 250 mls @ 2.5 mls/hr IV CONT .Q72H [facility]; Protocol Last Titration: 11/02/22 08:00 Dose: 25 mcg/hr, 2.5 mls/hr Midazolam HCl (Versed 100 Mg/Ns 100 Ml) 100 mg in 100 mls @ 2 mls/hr IV CONT .Q50H [facility]; Protocol Last Titration: 11/02/22 08:00 Dose: 2 mg/hr, 2 mls/hr Insulin Aspart (Insulin Aspart (*Bkc) 100 Units/Ml) 2 - 5 units SUB-Q Q4HR ALLY; Protocol Last Admin: 11/02/22 09:30 Dose: Not Given Multi-Ingred Cream/Lotion/Oil/Oint (Mineral Oil/White Petrolatum Ointment) 1 applic EACH EYE Q12HR ALLY Last Admin: 11/02/22 09:31 Dose: 1 applic Ondansetron HCl (Ondansetron Inj 4 Mg/2 Ml Vial) 4 mg IV PUSH Q4H PRN PRN Reason: Nausea Last Admin: 11/02/22 04:22 Dose: 4 mg Pantoprazole Sodium (Pantoprazole Sodium Iv 40 Mg Vial) 40 mg IV PUSH QAM ALLY Last Admin: 11/02/22 09:04 Dose: 40 mg Perflutren Lipid Microsphere (Perflutren Lipid Microspheres 1.5 Ml Vial Diluted To 10 Ml Total Volume) 0 ml IV PUSH ONCE PRN; Protocol PRN Reason: adequate visualization Stop: 11/03/22 23:02 Sodium Chloride (Central Line Flush) 10 ml IV PUSH Q8HR ALLY Sodium Chloride (Central Line Flush) 10 ml IV PUSH DAILY@1800 ALLY Sodium Chloride (Central Line Flush) 20 ml IV PUSH PRN PRN PRN Reason: after blood draws Sodium Zirconium Cyclosilicate (Sodium Zirconium Cyclosilicate 10 Gm Powd.Pack) 10 gm FEED TUBE TID@1000,1500,2200 [facility] Last Admin: 11/02/22 09:04 Dose: 10 gm Sedation/Anesthesia: No previous sedation/anesthesia problems (including family history). [facility] Past Medical History Medical History Chronic kidney disease Heart failure of unknown type History of pneumothorax Hypertension Restless legs syndrome Tobacco dependence Surgical History Surgical History History of hernia repair Family History Family History Other Heart disease Hypertension Social History Social History Social History: Surrogate medical decision maker: Dolores Cho, daughter. Code status: Full code. Smoking packs per day: 0.5 Smoking cigarettes per day: 10.0 Years smoked: 20 Smoking pack-years: 10.00 Smoking status: Current every day smoker Tobacco type: cigarettes Additional smoking assessment c
[2022-11-02 12:06] LABS: Total Protein Urine Random 493 mg/dL; Ur Ttl Prot Creatinine Ratio 1.83 mg/mg (0-0.20)
--- NOTE | 2022-11-02 12:31 | WPDCARDPROC ---
Cardiac Cath Procedure Note Date of procedure:: 11/02/22 Performing physician:: [facility]TER[facility]ATION [facility] REPORT Procedure Date: 11/02/2022 Ceramic Capacitor Processor: Angela Irvin M.D., [facility]? Referring Physician: Angela Irvin M.D. ? Anesthesia: Versed and Fentanyl were ordered and given in my presence at 12:00, procedure ended at 12:18. Supervision of nurse monitored moderate sedation with Versed and Fentanyl was provided for 18 minutes. Patient already on Versed and Fentanyl drips for sedation. Versed increased to 4mg/hour and Fentanyl increased to 75mcg/hour. Sedation administered by Debi Lovelace RN. Pre-op Diagnosis: Complete heart block Post-op Diagnosis: Successful placement of temporary transvenous pacer. Procedure(s): 1. Ultrasound guided access of the right femoral vein 2. Placement of temporary transvenous pacer Access Site: Right femoral vein Brief History and Clinical Indications: Patient is a 57 year old male who is referred for temporary transvenous pacer. All risks, benefits and alternatives to temporary transvenous pacer was discussed at length with the patient's family. Risk of complications including but not limited to bleeding, infection, arrhythmia, blood loss, groin hematoma, limb loss, emergency surgery, and even were discussed with the patient's family and all questions were answered. The patient's family understood and wished to proceed. Time out called, patient name, date of , medical record number, allergies, procedure performed, identify Ceramic Capacitor Processor, patient and staff member concurred with accurate data, procedure carried on. Description of Procedure: Informed consent signed and placed in the chart. Patient transferred to lab intern room. Prepped and draped in usual sterile fashion. 2% lidocaine injected subcutaneously in right groin area. Right femoral vein was accessed using micropuncture technique. 6-FR sheath placed. 6F temporary pacer catheter was advanced into the right ventricle. Pacer settings checked and were appropriate with good capture. Rate set at 10BPM. Pacer position is at 70cm. ? Assessment: Successful placement of temporary transvenous pacer. Post Operative Condition: Stable No significant blood loss Disposition: ICU Plan: Obtain CXR in ICU room to confirm position. ? Angela Irvin M.D. Interventional Cardiology
--- NOTE | 2022-11-02 13:13 | PM.CNCAR ---
Assessment and Plan Assessment and plan (1) Heart block: Code(s): I45.9 - Conduction disorder, unspecified Status: Acute Plan High-grade block noted on EKGs with some evidence of complete heart block on tele. In the setting of acute hypoxic respiratory failure, severe XOCHITL on CKD, significant hyperkalemia, metabolic acidosis. Coreg is also listed as a home medication. Echo ordered and pending. Will place a temporary transvenous pacer. Avoid all AV julia blocking agents. History of Present Illness History of Present Illness Consult date/time: 11/02/22 13:13 Requesting physician: Bryan Santana MD Consult reason: Other (Complete heart block) Reason For Visit: pleural effusion,metabolic acidosis,xochitl Narrative: We are consulted for complete heart block. This is a 57-year-old male with a history of hypertension, CHF, CKD with temporary dialysis last fall who presented to the ER for evaluation of weakness. Patient is intubated and sedated, therefore, all history obtained from chart. No family at bedside. In the ER patient was intubated for hypoxic respiratory failure. Patient reportedly had loose stools prior to presentation. His household members had a GI bug. Patient noted to be bradycardic in the ER with HR in the 30s. Given Atropine with initial improvement. Labs significant for sodium of 125, potassium 5.5, SCr 7. CXR with pleural effusions. Repeat labs later on showed worsening hyperkalemia with a K of 6.2. Hyperkalemia treated medically with improvement. Patient noted to be in complete heart block and was started on transcutaneous pacing and Dopamine drip. Review of Systems Review of Systems: ROS unobtainable: Yes unobtainable due to endotracheal tube and unobtainable due to medical condition [facility] Past Medical History Medical History Chronic kidney disease Heart failure of unknown type History of pneumothorax Hypertension Restless legs syndrome Tobacco dependence Surgical History Surgical History History of hernia repair Family History Family History Other Heart disease Hypertension Social History Social History Social History: Surrogate medical decision maker: Dolores Cho, daughter. Code status: Full code. Smoking packs per day: 0.5 Smoking cigarettes per day: 10.0 Years smoked: 20 Smoking pack-years: 10.00 Smoking status: Current every day smoker Tobacco type: cigarettes Additional smoking assessment comments: Up to 0.5 ppd, now smokes a carton a month. Alcohol intake: never Substance use: current Substance use type: marijuana Lack of Transportation: No Lack of Food: Never True Current Housing: I Have Housing Concerned About Future Housing: No Difficulty Paying Gas/Electric Bills: No Difficulty Paying for Meds: No Currently Unemployed: Decline to Answer Education: High School Diploma/GED Difficulty w/ Childcare or Family Care: No Additional living arrangements comments: Lives with daughter in [place]. Additional occupation/education comments: Disabled. Spiritual care concerns: No Meds Home Medications and Allergies Home Medications Medication Instructions Recorded Confirmed Type amlodipine 10 mg tablet 10 mg PO HS 11/01/22 11/01/22 History carvedilol 3.125 mg tablet 3.125 mg PO BID 11/01/22 11/01/22 History Allergies Allergy/AdvReac Type Severity Reaction Status Date / Time No Known Allergies Allergy Verified 11/01/22 16:16 Vital Signs Vital Signs - 24 hr 11/01/22 16:05 11/01/22 16:14 11/01/22 16:14 Temperature 36.5 C Pulse Rate 69 48 L Respiratory Rate 19 Blood Pressure 106/63 Pulse Oximetry 93 92 Oxygen Delivery Room Air Room Air Oxygen Flow Rate Fraction of Inspired Oxygen 03
[2022-11-02] MEDS: CENTRAL LINE FLUSH 10 ML IV PUSH ×2 (13:52→18:00)
[2022-11-02 13:55] LABS: Glucose Point of Care 149 mg/dl (65-105)
[2022-11-02 15:43] LABS: Anion Gap 15 mmol/L (8-16); Blood Urea Nitrogen 95 mg/dL (9-20); Calcium 7.6 mg/dL (8.4-10.2); Carbon Dioxide 14 mmol/L (22-30); Chloride 103 mmol/L (98-107); Estimated CRCL calculation 14 ml/min; Estimated Glomerular Filt Rate 8; Glucose 97 mg/dL (65-110); Potassium 5.7 mmol/L (3.4-5.0); Sodium 132 mmol/L (137-145)
[2022-11-02 16:37] LABS: Glucose Point of Care 92 mg/dl (65-105)
[2022-11-02 20:13] LABS: Glucose Point of Care 94 mg/dl (65-105)
[2022-11-02] MEDS: SODIUM BICARBONATE 8.4% 150 MEQ in WATER, STERILE FOR INJECTION 950 ML 50 MEQ IV CONT (20:17)
[2022-11-02 22:19] LABS: Anion Gap 8 mmol/L (8-16); Blood Urea Nitrogen 99 mg/dL (9-20); Calcium 7.2 mg/dL (8.4-10.2); Carbon Dioxide 24 mmol/L (22-30); Chloride 98 mmol/L (98-107); Estimated CRCL calculation 14 ml/min; Estimated Glomerular Filt Rate 8; Glucose 90 mg/dL (65-110); Potassium 4.6 mmol/L (3.4-5.0); Sodium 130 mmol/L (137-145)
--- NOTE | 2022-11-02 23:02 | ECHO_ITS ---
Patient Info Name: Chau Cho Age: 57 years : 1965 Gender: Male Ht: 70 in Wt: 291 lbs BSA: 2.61 m2 HR: 41 bpm BP: 114 / 43 mmHg Heart Rhythm: Bradycardia Exam Date: 11/02/2022 9:27 AM Exam Location: [facility] Patient Status: Inpatient Admit Date: 11/01/2022 Staff Ordering Physician: Dariana Steele PA-C Back End Developer: Duran Alba RDCS, RT Attending Provider: Rohit Naqvi MD Referring Physician: Ivette POOLE; Exam Type: CA echo doppler color flow Study Info Indications R01.1 - Cardiac murmur, unspecified I50.9 - Heart failure, unspecified Complete two-dimensional, color flow and Doppler transthoracic echocardiogram is performed. Summary 1. Complete two-dimensional, color flow and Doppler transthoracic echocardiogram is performed. 2. Left ventricular chamber dimension is normal. 3. Left ventricular systolic function is normal, estimated at 65-70%. 4. There is moderately increased left ventricular wall thickness. 5. The left ventricular diastolic function is grade I diastolic dysfunction. 6. Right ventricular systolic function is normal. 7. Left atrial chamber dimension is mildly enlarged. 8. There is severe aortic valve calcification. 9. There is severe aortic valve stenosis with a peak velocity of 474 cm/s, mean gradient of 56 mmHg, and aortic valve area of 1.3 cm2. 10. The mitral valve has thickened leaflets. 11. The mitral valve annulus is moderately calcified. 12. There is trace mitral valve regurgitation. 13. There is moderate tricuspid valve regurgitation. 14. There is mild pulmonic regurgitation. 15. Dilated inferior vena cava with <50% collapse upon inspiration consistent with elevated right atrial pressure, 15 mmHg. 16. Pulmonary hypertension with estimated PASP 64mmHg. Left Ventricle Left ventricular chamber dimension is normal. Left ventricular systolic function is normal, estimated at 65-70%. There is moderately increased left ventricular wall thickness. The left ventricular diastolic function is grade I diastolic dysfunction. Right Ventricle Right ventricular chamber dimension is normal. Right ventricular systolic function is normal. Left Atria Left atrial chamber dimension is mildly enlarged. Right Atria Right atrial chamber dimension is normal. Atrial Septum Intact interatrial septum visualized by color flow imaging. Aortic Valve The aortic valve is probable trileaflet. There is severe aortic valve stenosis with a peak velocity of 474 cm/s, mean gradient of 56 mmHg, and aortic valve area of 1.3 cm2. There is no aortic valve regurgitation. There is severe aortic valve calcification. Pulmonic Valve The pulmonic valve is not well visualized. There is mild pulmonic regurgitation. Mitral Valve The mitral valve has thickened leaflets. There is no mitral valve stenosis. There is trace mitral valve regurgitation. The mitral valve annulus is moderately calcified. Tricuspid Valve There is moderate tricuspid valve regurgitation. Pericardium/Pleural There is no pericardial effusion. Inferior Vena Cava Dilated inferior vena cava with <50% collapse upon inspiration consistent with elevated right atrial pressure, 15 mmHg. Aorta The aortic root size at the sinus of Valsalva is normal. Left Ventricular Outflow Tract Name Value Normal
[2022-11-03] VITALS (27 sets, daily range): BP systolic 86–112; BP diastolic 54–80; PULSE 70–72; RESP 22; TEMP 36.4–36.7; O2SAT 93–100; BMI 41.1
[2022-11-03 00:30] LABS: Glucose Point of Care 91 mg/dl (65-105)
[2022-11-03 04:24] LABS: Hematocrit 35.4 % (42.0-52.0); Hemoglobin 11.6 g/dL (14.0-18.0); Mean Corpuscular HGB Conc 32.8 g/dl (32-36); Mean Corpuscular Hemoglobin 29.8 pg (26-34); Mean Platelet Volume 10.1 fl (7.4-10.4); Platelet Count Result 186 k/mm3 (150-375); Red Blood Count 3.89 M/mm3 (4.6-6.20); Red Cell Distribution Width 14.9 % (11.5-14.5); White Blood Count 7.6 K/mm3 (4.5-10.0)
[2022-11-03 04:36] LABS: Alanine Aminotransferase 12 U/L (6-50); Alkaline Phosphatase 81 U/L (38-126); Anion Gap 11 mmol/L (8-16); Aspartate Amino Transferase 12 U/L (17-59); Bilirubin,Total 0.5 mg/dL (0.2-1.3); Blood Urea Nitrogen 101 mg/dL (9-20); Calcium 7.4 mg/dL (8.4-10.2); Carbon Dioxide 21 mmol/L (22-30); Chloride 97 mmol/L (98-107); Estimated CRCL calculation 14 ml/min; Estimated Glomerular Filt Rate 8; Glucose 87 mg/dL (65-110); Magnesium 2.3 mg/dL (1.6-2.3); Potassium 4.1 mmol/L (3.4-5.0); Sodium 129 mmol/L (137-145)
[2022-11-03 05:26] LABS: Alveolar/Arterial O2 Gradient 299.3 mmHg; Base Excess ABG -3.7 mEq/l (+/-2.0); Carboxyhemoglobin 0.3 % THb (0-2.0); Device VENTILATOR; Fractional Inspired Oxygen 60 %; HCO3 ABG 21.2 mEq/l (22.0-26.0); Methemoglobin ABG 0.3 %THb (0-1.5); Modified Allen's Test Pass; Oxygen Content ABG 16.7 %vol (16.0-22.0); Oxygen Saturation ABG 96.3 % (95.0-100.0); Oxyhemoglobin 95.3 % THb (90.0-100.0); PO2 ABG 86.7 mmHg (80.0-100.0); PO2 FiO2 Ratio Arterial Blood 1.44 %; Reduced Hemoglobin 4.1 %THb (0-5.0); Site Drawn RIGHT RADIAL; Total Hemoglobin 12.4 g/dL (12.0-18.0); pH ABG 7.364 (7.350-7.450)
[2022-11-03 05:27] LABS: Arterial Blood Gas PEEP 8 cmH2O; Arterial Blood Gas Tidal Volume 400 ml; Arterial Blood Gas Vent Mode CMV; Arterial Blood Gas Ventilator rate 22 /MIN
[2022-11-03 06:23] LABS: Hepatitis B Surface Antigen Negative (Negative)
[2022-11-03 06:29] LABS: HAV RESULT Negative (Negative); Hepatitis B Core IgM Result Negative (Negative)
[2022-11-03] MEDS: MIDAZOLAM 100MG/NS 100ML(*CRX) 100 MG/100 ML BAG IV CONT (06:30)
[2022-11-03 06:41] LABS: Hepatitis C Virus Antibody Negative (Negative)
[2022-11-03] MEDS: PANTOPRAZOLE SODIUM IV 40 MG VIAL IV PUSH (08:42)
[2022-11-03] MEDS: MINERAL OIL/WHITE PETROLATUM OINTMENT 1 APPLIC EACH EYE ×2 (08:42→20:39)
[2022-11-03] MEDS: ENOXAPARIN 30 MG/0.3 ML SYRINGE SUB-Q (08:42)
[2022-11-03 08:54] LABS: Glucose Point of Care 80 mg/dl (65-105)
--- NOTE | 2022-11-03 09:19 | P.PNNP_ITS ---
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 * evaluation to date: * urine electrolytes prerenal * urine eosinophils negative * CPK low * some improvement noted with interventions to date * remains at risk for requiring EYE SPECIALIST/dialysis but no emergent indications at this time * follow trend of repeat labs and UOP (2) Chronic kidney disease, stage IV (severe): Code(s): N18.4 - Chronic kidney disease, stage 4 (severe) Status: Chronic Assessment and Plan: * [facility], his creatinine was 3.1mg/dl * prior to his hospitalization in May 2022, his creatinine was running 2.3mg/dl * CKD thought to be secondary to HTN, DM, and obesity (3) Hyperkalemia: Code(s): E87.5 - Hyperkalemia Status: Acute Assessment and Plan: * responded to medical therapy in the form of IV bicarb, IV insulin, and D50 * lokelma PRN * follow trend of repeat K+ levels (4) Acute respiratory failure: Code(s): J96.00 - Acute respiratory failure, unspecified whether with hypoxia or hypercapnia Status: Acute Assessment and Plan: * due to volume overload and associated heart block * intubated due to worsening hypoxia and altered mental status * continue ventilator management for now * consider thoracentesis once more stable * weaning as tolerated (5) Metabolic acidosis with respiratory acidosis: Code(s): E87.4 - Mixed disorder of acid-base balance Status: Acute Assessment and Plan: * improvement with bicarb IVFs and mechanical ventilation * follow parameters (6) Heart block: Code(s): I45.9 - Conduction disorder, unspecified Status: Acute Assessment and Plan: * as noted by events on admission - variable heart block * s/p transvenous pacemaker (on 11/02/22) * Cardiology following * Echo results noted (7) Shock: Code(s): R57.9 - Shock, unspecified Status: Acute Assessment and Plan: * resolving * thought to be cardiogenic in nature * off dopamine but remains paced * follow trend of hemodynamics Discussed case with Dr. Nino. Will continue to follow. Subjective Date/time seen: 11/03/22 09:19 S/P tranvenous pacemaker placement by Cardiology yesterday morning; remains intubated/sedated and on mechanical ventilation; renal function continues to deteriorate although no critical electrolytes at this time; making some urine; stable hemodynamics off dopamine. Exam Narrative: General: WD/WN male intubated and on mechanical ventilation Heart: normal S1 and S2; no rub Lungs: coarse breath sounds; decreased at bases Abdomen: soft, nontender, nondistended, positive bowel sounds Extremities: no cyanosis or clubbing; 1+ edema Skin: warm and dry Objective Data Vital Signs Vital Signs: Vital Signs Temp Pulse Resp BP Pulse Ox O2 Del Method FiO2 11/03/22 08:00 71 11/03/22 08:00 98 Mechanical Ventilation 55 11/03/22 08:00 55 11/03/22 08:00 97.9 F 71 22 H 102/69 98 11/03/22 07:49 71 98 Mechanical Ventilation 55 11/03/22 0
--- NOTE | 2022-11-03 09:19 | PM.PNNEP ---
Progress Note: A&P Assessment and Plan (1) XOCHITL (acute kidney injury): Code(s): N17.9 - Acute kidney failure, unspecified Status: Acute Assessment and Plan: multifactorial etiology: prerenal factors shock heart block diuretics SUEDE CLEANER evaluation to date: urine electrolytes prerenal urine eosinophils negative CPK low some improvement noted with interventions to date remains at risk for requiring CLINICAL TRIAL ASSOCIATE/dialysis but no emergent indications at this time follow trend of repeat labs and UOP (2) Chronic kidney disease, stage IV (severe): Code(s): N18.4 - Chronic kidney disease, stage 4 (severe) Status: Chronic Assessment and Plan: on discharge from [facility] in July 2022, his creatinine was 3.1mg/dl prior to his hospitalization in May 2022, his creatinine was running 2.3mg/dl CKD thought to be secondary to HTN, DM, and obesity (3) Hyperkalemia: Code(s): E87.5 - Hyperkalemia Status: Acute Assessment and Plan: responded to medical therapy in the form of IV bicarb, IV insulin, and D50 lokelma PRN follow trend of repeat K+ levels (4) Acute respiratory failure: Code(s): J96.00 - Acute respiratory failure, unspecified whether with hypoxia or hypercapnia Status: Acute Assessment and Plan: due to volume overload and associated heart block intubated due to worsening hypoxia and altered mental status continue ventilator management for now consider thoracentesis once more stable weaning as tolerated (5) Metabolic acidosis with respiratory acidosis: Code(s): E87.4 - Mixed disorder of acid-base balance Status: Acute Assessment and Plan: improvement with bicarb IVFs and mechanical ventilation follow parameters (6) Heart block: Code(s): I45.9 - Conduction disorder, unspecified Status: Acute Assessment and Plan: as noted by events on admission - variable heart block s/p transvenous pacemaker (on 11/02/22) Cardiology following Echo results noted (7) Shock: Code(s): R57.9 - Shock, unspecified Status: Acute Assessment and Plan: resolving thought to be cardiogenic in nature off dopamine but remains paced follow trend of hemodynamics Discussed case with Dr. Nino. Will continue to follow. Subjective Date/time seen: 11/03/22 09:19 S/P tranvenous pacemaker placement by Cardiology yesterday morning; remains intubated/sedated and on mechanical ventilation; renal function continues to deteriorate although no critical electrolytes at this time; making some urine; stable hemodynamics off dopamine. Exam Narrative: General: WD/WN male intubated and on mechanical ventilation Heart: normal S1 and S2; no rub Lungs: coarse breath sounds; decreased at bases Abdomen: soft, nontender, nondistended, positive bowel sounds Extremities: no cyanosis or clubbing; 1+ edema Skin: warm and dry Objective Data Vital Signs Vital Signs: Vital Signs Temp Pulse Resp BP Pulse Ox O2 Del Method FiO2 11/03/22 08:00 71 11/03/22 08:00 98 Mechanical Ventilation 55 11/03/22 08:00 55 11/03/22 08:00 97.9 F 71 22 H 102/69 98 11/03/22 07:49 71 98 Mechanical Ventilation 55 11/03/22 06:30 71 22 H 11/03/22 06:00 71 22 H 11/03/22 06:00 71 22 H 11/03/22 04:00 71 22 H 11/03/22 04:00 71 22 H 11/03/22 02:00 71 22 H 11/03/22 02:00 71 22 H 11/03/22 00:00 71 22 H 11/03/22 00:00 71 22 H 11/03/22 06:00 71 22 H 112/80 99 11/03/22 06:00 71 11/03/22 05:00 71 98 Mechanical Ventilation 60 11/03/22 04:00 97.8 F 71 22 H 109/68 98 11/03/22 04:00 71 11/03/22 04:00 60 11/03/22 04:00 99 Mechanical Ventilation 60 11/03/22 02:00 71 22 H 109/68 99 11/03/22 02:00 71 11/03/22 02:25 71 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
--- NOTE | 2022-11-03 09:33 | WPDINTPN ---
Progress Note: A&P Assessment and Plan (1) Acute respiratory failure: Code(s): J96.00 - Acute respiratory failure, unspecified whether with hypoxia or hypercapnia Status: Acute (2) Mwxaq-nb-oybogta kidney injury: Code(s): N17.9 - Acute kidney failure, unspecified; N18.9 - Chronic kidney disease, unspecified Status: Acute (3) Heart block: Code(s): I45.9 - Conduction disorder, unspecified Status: Acute (4) Severe aortic stenosis: Code(s): I35.0 - Nonrheumatic aortic (valve) stenosis Status: Acute Plan Neuro: - On fentanyl and Versed for sedation - will switch Versed to propofol. Cardiovascular: - Symptomatic bradycardia: TVP placed by Cardiology, remains pacer-dependent. Pt was on Coreg as OP, continue washout period. May require PPM - Cardiology is following. Off pressors. Pulmonary: - Acute hypoxemic respiratory failure: remains intubated, continue AC mode for ventilation and follow ABG. - Pleural effusion: will plan for thoracentesis on R on 11/04. GI: - start TF. Renal: - XOCHITL on CKD: suspect he will require HD over the next 24-48h. No emergent indications at this time. Pt was on HD in the past, suspect he will require it permanently. Nephrology is following. ID: - No acute issues. Heme/Onc: - No acute issues. Endocrine: - Continue SSI. Musculoskeletal/skin: - No acute issues. GI ppx: PPI DVT ppx: Lovenox, hold AM dose for thoracentesis Time Spent With Patient Time: Critical care time: 45 minutes Subjective Date/time seen: 11/03/22 09:33 Remains on mechanical ventilation - FiO2 0.55, PEEP 8. No acute events noted overnight. Currently is pacer-dependent. Review of Systems Review of Systems: Unable to obtain as pt is intubated. Exam Narrative: General: WD/WN male intubated and on mechanical ventilation Heart: normal S1 and S2; no rub Lungs: coarse breath sounds; decreased at bases Abdomen: soft, nontender, nondistended, positive bowel sounds Extremities: no cyanosis or clubbing; 1+ edema Skin: warm and dry Objective Data Vital Signs Vital Signs: Vital Signs - 24 hr 11/02/22 10:00 11/02/22 10:00 11/02/22 10:00 Temperature Pulse Rate 46 L 46 L 47 L Respiratory Rate 22 H 23 H Blood Pressure 106/50 L 106/50 L Pulse Oximetry 94 97 Oxygen Delivery Fraction of Inspired Oxygen 11/02/22 10:00 11/02/22 12:00 11/02/22 13:00 Temperature Pulse Rate 54 L 69 77 Respiratory Rate 20 Blood Pressure 106/68 Pulse Oximetry 93 100 100 Oxygen Delivery Mechanical Ventilation Mechanical Ventilation Fraction of Inspired Oxygen 100 100 11/02/22 13:00 11/02/22 13:00 11/02/22 13:00 Temperature Pulse Rate 74 Respiratory Rate Blood Pressure Pulse Oximetry 100 Oxygen Delivery Mechanical Ventilation Fraction of Inspired Oxygen 100 100 11/02/22 14:00 11/02/22 14:00 11/02/22 16:03 Temperature Pulse Rate 71 71 71 Respiratory Rate 22 H Blood Pressure 100/62 Pulse Oximetry 100 100 Oxygen Delivery Mechanical Ventilation Fraction of Inspired Oxygen 100 11/02/22 16:00 11/02/22 16:00 11/02/22 18:00 Temperature 98.9 F Pulse Rate 71 71 71 Respiratory Rate 22 H 22 H Blood Pressure 114/70 108/56 L Pulse Oximetry 100 100 Oxygen Delivery Fraction of Inspired Oxygen 11/02/22 16:00 11/02/22 18:00 11/02/22 16:00 Temperature Pulse Rate 71 Respiratory Rate Blood Pressure Pulse Oximetry 100 Oxygen Delivery Mechanical Ventilation Fraction of Inspired Oxygen 100 100 11/02/22 13:00 11/02/22 10:00 11/02/22 12:00 Temperature Pulse Rate 74 48 L 52 L Respiratory Rate 22 H 22 H Blood Pressure 125/73 Pulse Oximetry Oxygen Delivery Fraction of Inspired Oxygen 11/02/22 13:00 11/02/22 14:00 11/02/22 16:00 Temperature Pulse Rate 74 71 71 Respiratory Rate 24 H 23 H 22 H Blood Pressure Pulse Oximetry Oxygen Delivery Fraction of Inspir
[2022-11-03] MEDS: SODIUM ZIRCONIUM CYCLOSILICATE 10 GM POWD.PACK FEED TUBE ×3 (10:37→20:39)
[2022-11-03] MEDS: PROPOFOL IV EMULSION 100 ML 3.89 MG IV CONT (10:38)
[2022-11-03 12:38] LABS: Glucose Point of Care 79 mg/dl (65-105)
--- NOTE | 2022-11-03 13:23 | PM.PNCARD ---
Progress Note: A&P Assessment and Plan (1) Heart block: Code(s): I45.9 - Conduction disorder, unspecified Status: Acute Assessment and Plan: High-grade block (2:1 AVB) noted on EKGs with some evidence of complete heart block on tele. In the setting of acute hypoxic respiratory failure, severe XOCHITL on CKD, significant hyperkalemia, metabolic acidosis. Coreg is also listed as a home medication. Temporary transvenous pacer placed 11/02 via right femoral vein. Pacer settings checked today. Threshold is at 0.4 (loses capture at 0.3). Underlying rhythm is bradycardia with Wenckebach with HR in the 30s. Avoid all AV julia blocking agents. Echocardiogram 11/02 shows: LVEF 65-70%, severe , moderate TR, pulmonary HTN with estimated PASP 64mmHg. Heart block may be due to his presenting metabolic issues. Will see how his sinus node recovers before considering permanent pacemaker. (2) Severe aortic stenosis: Code(s): I35.0 - Nonrheumatic aortic (valve) stenosis Status: Acute Assessment and Plan: Echocardiogram 11/02 shows: LVEF 65-70%, severe , moderate TR, pulmonary HTN with estimated PASP 64mmHg. Avoid hypotension in this patient given severe . Will need outpatient follow-up/management for valvular disease. Given his age, will need to rule out bicuspid aortic valve (can be done as outpatient). Subjective Date/time seen: 11/03/22 13:23 Interval history: Reason for visit: Complete heart block, 2:1 AVB HPI: We are consulted for complete heart block. This is a 57-year-old male with a history of hypertension, CHF, CKD with temporary dialysis last fall who presented to the ER for evaluation of weakness. Patient is intubated and sedated, therefore, all history obtained from chart. No family at bedside. In the ER patient was intubated for hypoxic respiratory failure. Patient reportedly had loose stools prior to presentation. His household members had a GI bug. Patient noted to be bradycardic in the ER with HR in the 30s. Given Atropine with initial improvement. Labs significant for sodium of 125, potassium 5.5, SCr 7. CXR with pleural effusions. Repeat labs later on showed worsening hyperkalemia with a K of 6.2. Hyperkalemia treated medically with improvement. Patient noted to be in complete heart block and was started on transcutaneous pacing and Dopamine drip. Date of service 11/03: Remains on mechanical ventilation. Paced rhythm. Review of Systems Review of Systems: ROS unobtainable: Yes unobtainable due to endotracheal tube and unobtainable due to medical condition Exam Const: General: no acute distress HENMT: Other: OETT in place Eyes: Sclera: sclerae normal Neck: Neck: supple Resp: Other: Intubated and on mechanical ventilation. Decreased breath sounds at bases. Cardio: Rate: regular rate Rhythm: regular rhythm Heart sounds: Murmur heart sound present GI: GI Palp: Yes Soft to palpation and No Tenderness to palpation present (GI) Skin: General skin exam: normal color Neuro: Other: Sedated Extrem: General: normal to inspection Psych: Other: Sedated Objective Data Vital Signs Vital Signs: Vital Signs - 24 hr 11/02/22 14:00 11/02/22 14:00 11/02/22 16:03 Temperature Pulse Rate 71 71 71 Respiratory Rate 22 H Blood Pressure 100/62 Pulse Oximetry 100 100 Oxygen Delivery Mechanical Ventilation Fraction of Inspired Oxygen 100 11/02/22 16:00 11/02/22 16:00 11/02/22 18:00 Temperature 37.2 C Pulse Rate 71 71 71 Respiratory Rate 22 H 22 H Blood Pressure 114/70 108/56 L Pulse Oximetry 100 100 Oxygen Delivery Fraction of Inspired Oxygen 11/02/22 16:00 11/02/22 18:00 11/02/22 16:00 Temperature Pulse Rate 71 Respiratory Rate Blood Pressure Pulse Oximetry 100 Oxygen Delivery Mechanical Ventilation Fraction of Inspired Oxygen 100 100 11/02/22 14:00 11/02/22 16:00 11/02/22 18:00 Temperature Pulse Rate 71 71 7
--- NOTE | 2022-11-03 14:52 | PM.IMPN ---
Progress Note: A&P Assessment and Plan (1) Acute respiratory failure: Code(s): J96.00 - Acute respiratory failure, unspecified whether with hypoxia or hypercapnia Status: Acute (2) Urhws-uo-htnzzbc kidney injury: Code(s): N17.9 - Acute kidney failure, unspecified; N18.9 - Chronic kidney disease, unspecified Status: Acute (3) Heart block: Code(s): I45.9 - Conduction disorder, unspecified Status: Acute (4) Severe aortic stenosis: Code(s): I35.0 - Nonrheumatic aortic (valve) stenosis Status: Acute Plan 57-year-old male smoker with hypertension, congestive heart failure, and chronic kidney disease with temporary dialysis last fall who presented to the ED via EMS from home for evaluation of weakness. 1)Acute Hypoxic Resp Failure: Patient Currently intubated Vent management as per milk route supervisor Plan for thoracentesis on 11/04/22 2)Bradycardia: Appreciate Cardiology help TVP placed by Cardiology, remains pacer-dependent. Pt was on Coreg as OP, continue washout period. May require PPM - Cardiology is following. Off pressors. 3)XOCHITL on CKD: Nephrology is following. Might Need dialysis, defer to Nephrology 4)DVT ppx: Lovenox on hold for thoracentesis 5)Code:Full 6)Dispo:remains ventilated in ICU Time Spent With Patient Time: Critical care time: 45 minutes Time with patient: 25 - 35 minutes Subjective Date/time seen: 11/03/22 14:52 Interval history: remains intubated Review of Systems Review of Systems: ROS unobtainable: Yes unobtainable due to endotracheal tube Exam Narrative: General: intubated and on mechanical ventilation Heart: normal S1 and S2; no rub Lungs: coarse breath sounds; decreased at bases Abdomen: soft, nontender, nondistended, positive bowel sounds Extremities: no cyanosis or clubbing; 1+ edema Skin: warm and dry Objective Data Vital Signs Vital Signs: Vital Signs - 24 hr 11/02/22 16:03 11/02/22 16:00 11/02/22 16:00 Temperature 98.9 F Pulse Rate 71 71 71 Respiratory Rate 22 H Blood Pressure 114/70 Pulse Oximetry 100 100 Oxygen Delivery Mechanical Ventilation Fraction of Inspired Oxygen 100 11/02/22 18:00 11/02/22 16:00 11/02/22 18:00 Temperature Pulse Rate 71 71 Respiratory Rate 22 H Blood Pressure 108/56 L Pulse Oximetry 100 Oxygen Delivery Fraction of Inspired Oxygen 100 11/02/22 16:00 11/02/22 16:00 11/02/22 18:00 Temperature Pulse Rate 71 71 Respiratory Rate 22 H 22 H Blood Pressure Pulse Oximetry 100 Oxygen Delivery Mechanical Ventilation Fraction of Inspired Oxygen 100 11/02/22 16:00 11/02/22 18:00 11/02/22 20:00 Temperature 97.8 F Pulse Rate 71 72 71 Respiratory Rate 22 H 22 H 22 H Blood Pressure 101/61 Pulse Oximetry 100 Oxygen Delivery Fraction of Inspired Oxygen 11/02/22 20:00 11/02/22 20:18 11/02/22 20:18 Temperature Pulse Rate 71 71 Respiratory Rate 22 H 22 H Blood Pressure Pulse Oximetry Oxygen Delivery Fraction of Inspired Oxygen 90 11/02/22 20:50 11/02/22 20:00 11/02/22 20:00 Temperature Pulse Rate 71 Respiratory Rate Blood Pressure Pulse Oximetry 100 Oxygen Delivery Mechanical Ventilation Fraction of Inspired Oxygen 80 90 11/02/22 22:00 11/02/22 22:00 11/02/22 22:30 Temperature Pulse Rate 71 71 71 Respiratory Rate 22 H 22 H Blood Pressure 108/71 Pulse Oximetry 100 Oxygen Delivery Fraction of Inspired Oxygen 11/02/22 22:30 11/03/22 00:00 11/03/22 00:00 Temperature Pulse Rate 71 71 Respiratory Rate 22 H Blood Pressure Pulse Oximetry Oxygen Delivery Fraction of Inspired Oxygen 70 11/03/22 00:00 11/03/22 00:00 11/02/22 20:30 Temperature 97.6 F Pulse Rate 71 71 Respiratory Rate 22 H Blood Pressure 106/68 Pulse Oximetry 100 100 100 Oxygen Delivery Mechanical Ventilation Mechanical Ventilation Fraction of Inspired Oxygen
--- NOTE | 2022-11-03 17:30 | PC.NURSE ---
Updated daughter via telephone on patient condition and plan of care
[2022-11-03 18:51] LABS: Glucose Point of Care 92 mg/dl (65-105)
[2022-11-03] MEDS: FENTANYL 2,500MCG/NS250ML(*CRX 2,500 MCG/250 ML BAG IV CONT (19:01)
[2022-11-03] MEDS: SODIUM BICARBONATE 8.4% 150 MEQ in WATER, STERILE FOR INJECTION 950 ML 50 MEQ IV CONT (19:03)
[2022-11-03 20:57] LABS: Glucose Point of Care 91 mg/dl (65-105)
[2022-11-04] VITALS (33 sets, daily range): BP systolic 89–130; BP diastolic 44–110; PULSE 68–80; RESP 13–22; TEMP 36.1–37.2; O2SAT 92–100
[2022-11-04 00:38] LABS: Glucose Point of Care 100 mg/dl (65-105)
[2022-11-04 04:57] LABS: Mean Corpuscular HGB Conc 32.4 g/dl (32-36); Mean Corpuscular Hemoglobin 30.1 pg (26-34); Mean Corpuscular Volume 93.2 fl (80-100); Mean Platelet Volume 10.3 fl (7.4-10.4); Platelet Count Result 177 k/mm3 (150-375); Red Blood Count 3.65 M/mm3 (4.6-6.20); Red Cell Distribution Width 14.8 % (11.5-14.5); White Blood Count 7.4 K/mm3 (4.5-10.0)
[2022-11-04 05:10] LABS: Alanine Aminotransferase 11 U/L (6-50); Albumin Level 2.7 g/dL (3.5-5.1); Alkaline Phosphatase 84 U/L (38-126); Anion Gap 9 mmol/L (8-16); Aspartate Amino Transferase 10 U/L (17-59); Bilirubin,Total 0.4 mg/dL (0.2-1.3); Blood Urea Nitrogen 105 mg/dL (9-20); Calcium 6.7 mg/dL (8.4-10.2); Carbon Dioxide 23 mmol/L (22-30); Chloride 96 mmol/L (98-107); Estimated CRCL calculation 14 ml/min; Estimated Glomerular Filt Rate 8; Glucose 108 mg/dL (65-110); INR 1.2; Magnesium 2.3 mg/dL (1.6-2.3); Phosphorus 6.5 mg/dL (2.5-4.5); Potassium 3.2 mmol/L (3.4-5.0); Prothrombin Time 14.4 Seconds (11.1-14.7); Sodium 128 mmol/L (137-145)
[2022-11-04 05:45] LABS: Base Excess ABG -0.8 mEq/l (+/-2.0); Carboxyhemoglobin 0.3 % THb (0-2.0); Fractional Inspired Oxygen 80 %; HCO3 ABG 25.4 mEq/l (22.0-26.0); Methemoglobin ABG 0.3 %THb (0-1.5); Oxygen Content ABG 16.6 %vol (16.0-22.0); Oxygen Saturation ABG 94.8 % (95.0-100.0); Oxyhemoglobin 93.3 % THb (90.0-100.0); PO2 FiO2 Ratio Arterial Blood 0.98 %; Reduced Hemoglobin 6.1 %THb (0-5.0); Total Hemoglobin 12.6 g/dL (12.0-18.0); pH ABG 7.341 (7.350-7.450)
[2022-11-04 05:47] LABS: Site Drawn RIGHT RADIAL
[2022-11-04 05:48] LABS: Arterial Blood Gas PEEP 5 cmH2O; Arterial Blood Gas Tidal Volume 400 ml; Arterial Blood Gas Vent Mode CMV; Arterial Blood Gas Ventilator rate 22 /MIN; Device VENTILATOR; Modified Allen's Test Unable to perform
[2022-11-04] MEDS: PROPOFOL IV EMULSION 100 ML 3.89 MG IV CONT (06:50)
[2022-11-04 08:11] LABS: Glucose Point of Care 113 mg/dl (65-105)
--- NOTE | 2022-11-04 08:18 | WPDINTPN ---
Progress Note: A&P Assessment and Plan (1) Acute respiratory failure: Code(s): J96.00 - Acute respiratory failure, unspecified whether with hypoxia or hypercapnia Status: Acute (2) Woasq-ob-lvydhzt kidney injury: Code(s): N17.9 - Acute kidney failure, unspecified; N18.9 - Chronic kidney disease, unspecified Status: Acute (3) Heart block: Code(s): I45.9 - Conduction disorder, unspecified Status: Acute (4) Severe aortic stenosis: Code(s): I35.0 - Nonrheumatic aortic (valve) stenosis Status: Acute Plan Neuro: - On fentanyl and propofol for sedation - RASS goal 0 to -1. Cardiovascular: - Symptomatic bradycardia: TVP placed by Cardiology, remains pacer-dependent. Pt was on Coreg as OP, continue washout period. Plan for PPM today at 1400 - Cardiology is following. Off pressors. Pulmonary: - Acute hypoxemic respiratory failure: remains intubated, continue AC mode for ventilation and follow ABG. Plan SAT/SBT in AM. - Pleural effusion: will plan for thoracentesis on R if adequate pocket visualized on US. GI: - TF on hold for procedures today. Renal: - XOCHITL on CKD: suspect he will require HD over the next 24h. No emergent indications at this time. Pt was on HD in the past, suspect he will require it permanently. Nephrology is following. Will place HD catheter in anticipation of HD. D/w Nephrology. ID: - No acute issues. Heme/Onc: - No acute issues. Endocrine: - Continue SSI. Musculoskeletal/skin: - No acute issues. GI ppx: PPI DVT ppx: Lovenox, held AM dose for thoracentesis and PPM Time Spent With Patient Time: Critical care time: 40 minutes Subjective Date/time seen: 11/04/22 08:18 24h events: No acute events noted overnight. Remains on mechanical ventilation. Review of Systems Review of Systems: Unable to obtain as pt is intubated. ROS unobtainable: Yes unobtainable due to endotracheal tube Exam Narrative: General: WD/WN male intubated and on mechanical ventilation, awake and follows commands Heart: normal S1 and S2; no rub Lungs: coarse breath sounds Abdomen: soft, nontender, nondistended, positive bowel sounds Extremities: no cyanosis or clubbing; no edema Skin: warm and dry Objective Data Vital Signs Vital Signs: Vital Signs - 24 hr 11/03/22 10:38 11/03/22 10:00 11/03/22 10:00 Temperature Pulse Rate 71 71 71 Respiratory Rate 22 H 22 H 22 H Blood Pressure Pulse Oximetry Oxygen Delivery Fraction of Inspired Oxygen 11/03/22 10:40 11/03/22 10:50 11/03/22 10:00 Temperature Pulse Rate 71 71 71 Respiratory Rate 22 H Blood Pressure Pulse Oximetry 95 Oxygen Delivery Mechanical Ventilation Fraction of Inspired Oxygen 55 11/03/22 10:00 11/03/22 12:00 11/03/22 12:00 Temperature 98.1 F Pulse Rate 71 70 70 Respiratory Rate 22 H 22 H 22 H Blood Pressure 104/68 91/56 L Pulse Oximetry 96 97 Oxygen Delivery Fraction of Inspired Oxygen 11/03/22 12:00 11/03/22 12:00 11/03/22 12:00 Temperature Pulse Rate 70 70 Respiratory Rate 22 H 22 H Blood Pressure Pulse Oximetry Oxygen Delivery Fraction of Inspired Oxygen 55 11/03/22 12:00 11/03/22 12:00 11/03/22 14:04 Temperature Pulse Rate 71 71 Respiratory Rate Blood Pressure Pulse Oximetry 97 96 Oxygen Delivery Mechanical Ventilation Mechanical Ventilation Fraction of Inspired Oxygen 55 50 11/03/22 14:00 11/03/22 14:00 11/03/22 14:00 Temperature Pulse Rate 72 72 72 Respiratory Rate 22 H 22 H Blood Pressure 90/64 L Pulse Oximetry 95 Oxygen Delivery Fraction of Inspired Oxygen 11/03/22 14:00 11/03/22 16:00 11/03/22 16:00 Temperature 97.9 F Pulse Rate 72 70 70 Respiratory Rate 22 H 22 H 22 H Blood Pressure 86/59 L Pulse Oximetry 95 Oxygen Delivery Fraction of Inspired Oxygen 11/03/22 16:14 11/03/22 16:00 11/03/22 17:46 Temperature Pulse Rate 70 70 71 Respiratory
--- NOTE | 2022-11-04 08:25 | PM.IMPN ---
Progress Note: A&P Assessment and Plan (1) Acute respiratory failure: Code(s): J96.00 - Acute respiratory failure, unspecified whether with hypoxia or hypercapnia Status: Acute (2) Wkbzq-yw-qldadyn kidney injury: Code(s): N17.9 - Acute kidney failure, unspecified; N18.9 - Chronic kidney disease, unspecified Status: Acute (3) Heart block: Code(s): I45.9 - Conduction disorder, unspecified Status: Acute (4) Severe aortic stenosis: Code(s): I35.0 - Nonrheumatic aortic (valve) stenosis Status: Acute Plan 57-year-old male smoker with hypertension, congestive heart failure, and chronic kidney disease with temporary dialysis last fall who presented to the ED via EMS from home for evaluation of weakness. 1)Acute Hypoxic Resp Failure: Patient currently intubated Vent management as per product safety and standards engineer Plan for thoracentesis today, US did not show enough fluid to drain 2)Bradycardia: Appreciate Cardiology help TVP placed by Cardiology, remains pacer-dependent. Pt was on Coreg as OP, continue washout period. PPM placed today, appreciate cardiology consult 3)XOCHITL on CKD: Nephrology is following. Might need dialysis tomorrow, defer to Nephrology 4)DVT ppx: Lovenox 5)Code:Full 6)Dispo:remains ventilated in ICU Time Spent With Patient Time: Critical care time: 45 minutes Time with patient: 25 - 35 minutes Subjective Date/time seen: 11/04/22 08:25 Interval history: intubated, sedated no overnight events noted Review of Systems Review of Systems: ROS unobtainable: Yes unobtainable due to endotracheal tube Exam Narrative: General: intubated, ventilated Heart: normal S1 and S2 Lungs: unlabored breathing on vent noted, no audible wheezes Abdomen: soft, nontender, nondistended Extremities: no cyanosis or clubbing Skin: warm and dry Objective Data Vital Signs Vital Signs: Vital Signs - 24 hr 11/03/22 10:38 11/03/22 10:00 11/03/22 10:00 Temperature Pulse Rate 71 71 71 Respiratory Rate 22 H 22 H 22 H Blood Pressure Pulse Oximetry Oxygen Delivery Fraction of Inspired Oxygen 11/03/22 10:40 11/03/22 10:50 11/03/22 10:00 Temperature Pulse Rate 71 71 71 Respiratory Rate 22 H Blood Pressure Pulse Oximetry 95 Oxygen Delivery Mechanical Ventilation Fraction of Inspired Oxygen 55 11/03/22 10:00 11/03/22 12:00 11/03/22 12:00 Temperature 98.1 F Pulse Rate 71 70 70 Respiratory Rate 22 H 22 H 22 H Blood Pressure 104/68 91/56 L Pulse Oximetry 96 97 Oxygen Delivery Fraction of Inspired Oxygen 11/03/22 12:00 11/03/22 12:00 11/03/22 12:00 Temperature Pulse Rate 70 70 Respiratory Rate 22 H 22 H Blood Pressure Pulse Oximetry Oxygen Delivery Fraction of Inspired Oxygen 55 11/03/22 12:00 11/03/22 12:00 11/03/22 14:04 Temperature Pulse Rate 71 71 Respiratory Rate Blood Pressure Pulse Oximetry 97 96 Oxygen Delivery Mechanical Ventilation Mechanical Ventilation Fraction of Inspired Oxygen 55 50 11/03/22 14:00 11/03/22 14:00 11/03/22 14:00 Temperature Pulse Rate 72 72 72 Respiratory Rate 22 H 22 H Blood Pressure 90/64 L Pulse Oximetry 95 Oxygen Delivery Fraction of Inspired Oxygen 11/03/22 14:00 11/03/22 16:00 11/03/22 16:00 Temperature 97.9 F Pulse Rate 72 70 70 Respiratory Rate 22 H 22 H 22 H Blood Pressure 86/59 L Pulse Oximetry 95 Oxygen Delivery Fraction of Inspired Oxygen 11/03/22 16:14 11/03/22 16:00 11/03/22 17:46 Temperature Pulse Rate 70 70 71 Respiratory Rate 22 H 22 H Blood Pressure Pulse Oximetry 94 Oxygen Delivery Mechanical Ventilation Fraction of Inspired Oxygen 50 11/03/22 18:00 11/03/22 18:00 11/03/22 16:00 Temperature Pulse Rate 70 70 Respiratory Rate 22 H 22 H Blood Pressure Pulse Oximetry Oxygen Delivery Fraction of Inspired Oxygen 50 11/03/22 18:00
[2022-11-04] MEDS: PANTOPRAZOLE SODIUM IV 40 MG VIAL IV PUSH (08:26)
[2022-11-04] MEDS: MINERAL OIL/WHITE PETROLATUM OINTMENT 1 APPLIC EACH EYE ×2 (08:27→20:27)
--- NOTE | 2022-11-04 08:50 | PM.PNCARD ---
Progress Note: A&P Assessment and Plan (1) Heart block: Code(s): I45.9 - Conduction disorder, unspecified Status: Acute Assessment and Plan: High-grade block (2:1 AVB) noted on EKGs with some evidence of complete heart block on tele. In the setting of acute hypoxic respiratory failure, severe XOCHITL on CKD, significant hyperkalemia, metabolic acidosis. Coreg is also listed as a home medication. Temporary transvenous pacer placed 11/02 via right femoral vein. Threshold is at 0.4 (loses capture at 0.3). Underlying rhythm is bradycardia with 2:1 AVB today with HR in the 20s. Avoid all AV julia blocking agents. Echocardiogram 11/02 shows: LVEF 65-70%, severe , moderate TR, pulmonary HTN with estimated PASP 64mmHg. Heart block may be due to his presenting metabolic issues. Metabolic issues have resolved, yet patient is pacemaker dependent at this point. Given this, will plan for permanent pacemaker placement with Dr. Shen 11/04 in the afternoon. Tube feeds stopped this morning. Patient to remain intubated for procedure. (2) Severe aortic stenosis: Code(s): I35.0 - Nonrheumatic aortic (valve) stenosis Status: Acute Assessment and Plan: Echocardiogram 11/02 shows: LVEF 65-70%, severe , moderate TR, pulmonary HTN with estimated PASP 64mmHg. Avoid hypotension in this patient given severe . Will need outpatient follow-up/management for valvular disease. Given his age, will need to rule out bicuspid aortic valve (can be done as outpatient). Subjective Date/time seen: 11/04/22 08:50 Interval history: Reason for visit: Complete heart block, 2:1 AVB HPI: We are consulted for complete heart block. This is a 57-year-old male with a history of hypertension, CHF, CKD with temporary dialysis last fall who presented to the ER for evaluation of weakness. Patient is intubated and sedated, therefore, all history obtained from chart. No family at bedside. In the ER patient was intubated for hypoxic respiratory failure. Patient reportedly had loose stools prior to presentation. His household members had a GI bug. Patient noted to be bradycardic in the ER with HR in the 30s. Given Atropine with initial improvement. Labs significant for sodium of 125, potassium 5.5, SCr 7. CXR with pleural effusions. Repeat labs later on showed worsening hyperkalemia with a K of 6.2. Hyperkalemia treated medically with improvement. Patient noted to be in complete heart block and was started on transcutaneous pacing and Dopamine drip. Date of service 11/03: Remains on mechanical ventilation. Paced rhythm. Date of service 11/04: Remains on mechanical ventilation. Paced rhythm. Underlying rhythm is bradycardia with HR in the 20s in 2:1 AVB this morning. Patient is awake on the ventilator. Shakes his head yes or no when asked questions. He does not recall taking Coreg at home. He denies any prior cardiac issues. Review of Systems Review of Systems: 8 point ROS obtained. Negative, unless stated in HPI. Exam Const: General: no acute distress HENMT: Other: OETT in place Eyes: Sclera: sclerae normal Neck: Neck: supple Resp: Other: Intubated and on mechanical ventilation. Decreased breath sounds at bases. Cardio: Rate: regular rate Rhythm: regular rhythm Heart sounds: Murmur heart sound present GI: GI Palp: Yes Soft to palpation and No Tenderness to palpation present (GI) Skin: General skin exam: normal color Neuro: Other: Awake and alert on ventilator Extrem: General: normal to inspection Psych: Affect: normal affect Other: Sedated Objective Data Vital Signs Vital Signs: Vital Signs - 24 hr 11/03/22 10:38 11/03/22 10:00 11/03/22 10:00 Temperature Pulse Rate 71 71 71 Respiratory Rate 22 H 22 H 22 H Blood Pressure Pulse Oximetry Oxygen Delivery Fraction of Inspired Oxygen 11/03/22 10:40 11/03/22 10:50 11/03/22 10:00 Temperature Pulse Rate 71 71 71 Respiratory Rate 22 H
--- NOTE | 2022-11-04 09:07 | ECG_ITS ---
Measurements Intervals [place] Rate: 80 P: AR: 0 QRS: -70 QRSD: 237 T: 102 QT: 496 QTc: 572 Interpretive Statements ATRIAL SENSE- ELECTRONIC VENTRICULAR PACEMAKER NO FURTHER INTERPRETATION IS POSSIBLE ATYPICAL ECG COMPARED TO ECG 11/01/2022 21:49:41 NO SIGNIFICANT CHANGES Electronically Signed On 11-04-2022 9:54:25 SOLUTIONS ENGINEER by Thony Rincon D.O.
[2022-11-04 09:18] LABS: Basophils Percent Auto 0.1 % (0.2-1.2); Eosinophils Percent Auto 0.3 % (0-4.4); Hematocrit 34.7 % (42.0-52.0); Immature Granulocyte Absolute 0.02 K/mm3 (0.00-0.031); Immature Granulocyte Percent A 0.3 % (0-0.5); Lymphocytes Percent Auto 13.2 % (18.3-44.2); Mean Corpuscular HGB Conc 31.7 g/dl (32-36); Mean Corpuscular Hemoglobin 30.1 pg (26-34); Mean Corpuscular Volume 94.8 fl (80-100); Mean Platelet Volume 10.6 fl (7.4-10.4); Monocytes Absolute Auto 0.4 K/mm3 (0.1-0.6); Monocytes Percent Auto 5.7 % (2.6-8.5); Neutrophils Absolute Auto 6.1 K/mm3 (1.3-6.7); Neutrophils Percent Auto 80.4 % (45.5-73.1); Platelet Count Result 186 k/mm3 (150-375); Red Blood Count 3.66 M/mm3 (4.6-6.20); White Blood Count 7.6 K/mm3 (4.5-10.0)
--- NOTE | 2022-11-04 10:57 | PCFNICU ---
ICU Rounding Note: Pt current nutrition is NPO. Last recorded weight is 131.5 kg. Bowel Motility:+Bm reported 11/04 Labs Reviewed:Cr 7.5,BUN 105, K 3.2, Na 128, Alb 2.7,Hct 34.0,Hgb 11.0 Meds Noted:Fentanyl,Protonix, Lasix,Propofol on standby-was at 5 izq=109 kcal. Skin: WNL Additional Notes: Patient is current with mechanical vent. Tube feedings on hold for pacemaker. Possible thoracentesis today. When tube tube feedings restart recommend Nepro at 40 ml/hr. Flush 30 ml q 4 hours. Agree with diet orders. Will monitor in ICU rounds as reassess every Wednesday and Wednesday.
[2022-11-04] MEDS: fentaNYL CITRATE INJ (*CRX) 100 MCG/2 ML VIAL IV PUSH (11:07)
--- NOTE | 2022-11-04 11:42 | P.PCNBED_ITS ---
Procedures Central Line Placement Right IJ: Central Line Date: 11/04/22 Central Line Time: 11:30 Discussed w/ the patient/family/POA,the placement of a central venous catheter, including its clinical necessity/indication & associated potential risks, benifits and alternatives.: Yes Consent: I have discussed with the patient and/or surrogate, the non-emergent placement of a central venous catheter, including its clinical necessity/indication and associated potential risks and complications. The patient and/or surrogate understand(s) and acknowledge(s) the need to proceed with central venous catheter insertion as an important element of the patient's clinical management. Time Out Performed: Yes Patient Position: trendelenburg Patient placed on monitor/pulse ox: Yes Provider Prep: mask, sterile gown, sterile gloves, Max. sterile barrier precautions, cap and hand hygiene with conventional soap/water or alcohol based hand rub Central line prep: 2% Chlorhexidine scrub Local anesthesia used: lidocaine 1% Amount of anesthesia used (ml): 5 Sterile US Technique with sterile gel/sterile probe covers: Yes Central line lumen inserted: triple [place]: 12 Length (cm): 16 Post Procedure: sutured in place, good blood return, all ports aspirated, flushed, capped, transparent dressing, antimicrobial product and aseptic technique maintained throughout procedure Post procedure x-ray: tip of catheter in good position and no pneumothorax seen Patient tolerated procedure: well and no complications Complications: none
[2022-11-04 11:56] LABS: Glucose Point of Care 94 mg/dl (65-105)
--- NOTE | 2022-11-04 12:03 | P.PNNP_ITS ---
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 ENGINEER/dialysis but no emergent indications at this time * likely plan HD for clearance and fluid removal tomorrow * follow trend of repeat labs and UOP (2) Chronic kidney disease, stage IV (severe): Code(s): N18.4 - Chronic kidney disease, stage 4 (severe) Status: Chronic Assessment and Plan: * on discharge from [facility] in July 2022, his creatinine was 3.1mg/dl * prior to his hospitalization in May 2022, his creatinine was running 2.3mg/dl * CKD thought to be secondary to HTN, DM, and obesity (3) Hyperkalemia: Code(s): E87.5 - Hyperkalemia Status: Acute Assessment and Plan: * responded to medical therapy in the form of IV bicarb, IV insulin, and D50 * lokelma PRN * follow trend of repeat K+ levels (4) Acute respiratory failure: Code(s): J96.00 - Acute respiratory failure, unspecified whether with hypoxia or hypercapnia Status: Acute Assessment and Plan: * due to volume overload and associated heart block * intubated due to worsening hypoxia and altered mental status * continue ventilator management for now * consider thoracentesis once more stable * weaning as tolerated (5) Metabolic acidosis with respiratory acidosis: Code(s): E87.4 - Mixed disorder of acid-base balance Status: Acute Assessment and Plan: * improvement with bicarb IVFs and mechanical ventilation * follow parameters (6) Heart block: Code(s): I45.9 - Conduction disorder, unspecified Status: Acute Assessment and Plan: * as noted by events on admission - variable heart block * s/p transvenous pacemaker (on 11/02/22) * Cardiology following * Echo results noted (7) Shock: Code(s): R57.9 - Shock, unspecified Status: Acute Assessment and Plan: * resolving * thought to be cardiogenic in nature * off dopamine but remains paced * follow trend of hemodynamics Discussed case with Dr. Nino. Will continue to follow. Subjective Date/time seen: 11/04/22 12:03 Despite stabilization of electrolyte issues, remains pacemaker dependent; remains intubated/sedated and on mechanical ventilation; noted plans by Cardiology for permanent pacemaker placement later this afternoon; BUN and creatinine remain elevated and issues with fluid overload noted; still making some urine. Exam Narrative: General: WD/WN male intubated and on mechanical ventilation Heart: normal S1 and S2; no rub Lungs: coarse breath sounds; decreased at bases Abdomen: soft, nontender, nondistended, positive bowel sounds Extremities: no cyanosis or clubbing; 1+ edema Skin: warm and intact Objective Data Vital Signs Vital Signs: Vital Signs Temp Pulse Resp BP Pulse Ox O2 Del Method FiO2 11/04/22 12:00 97.4 F L 80 13 114/79 94 11/04/22 11:10 80 95 Mechanical Ventilation 45 11/04/22 10:00 80 22 H 91/61
--- NOTE | 2022-11-04 12:03 | PM.PNNEP ---
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 but no emergent indications at this time likely plan HD for clearance and fluid removal tomorrow follow trend of repeat labs and UOP (2) Chronic kidney disease, stage IV (severe): Code(s): N18.4 - Chronic kidney disease, stage 4 (severe) Status: Chronic Assessment and Plan: on discharge from [facility] in July 2022, his creatinine was 3.1mg/dl prior to his hospitalization in May 2022, his creatinine was running 2.3mg/dl CKD thought to be secondary to HTN, DM, and obesity (3) Hyperkalemia: Code(s): E87.5 - Hyperkalemia Status: Acute Assessment and Plan: responded to medical therapy in the form of IV bicarb, IV insulin, and D50 lokelma PRN follow trend of repeat K+ levels (4) Acute respiratory failure: Code(s): J96.00 - Acute respiratory failure, unspecified whether with hypoxia or hypercapnia Status: Acute Assessment and Plan: due to volume overload and associated heart block intubated due to worsening hypoxia and altered mental status continue ventilator management for now consider thoracentesis once more stable weaning as tolerated (5) Metabolic acidosis with respiratory acidosis: Code(s): E87.4 - Mixed disorder of acid-base balance Status: Acute Assessment and Plan: improvement with bicarb IVFs and mechanical ventilation follow parameters (6) Heart block: Code(s): I45.9 - Conduction disorder, unspecified Status: Acute Assessment and Plan: as noted by events on admission - variable heart block s/p transvenous pacemaker (on 11/02/22) Cardiology following Echo results noted (7) Shock: Code(s): R57.9 - Shock, unspecified Status: Acute Assessment and Plan: resolving thought to be cardiogenic in nature off dopamine but remains paced follow trend of hemodynamics Discussed case with Dr. Nino. Will continue to follow. Subjective Date/time seen: 11/04/22 12:03 Despite stabilization of electrolyte issues, remains pacemaker dependent; remains intubated/sedated and on mechanical ventilation; noted plans by Cardiology for permanent pacemaker placement later this afternoon; BUN and creatinine remain elevated and issues with fluid overload noted; still making some urine. Exam Narrative: General: WD/WN male intubated and on mechanical ventilation Heart: normal S1 and S2; no rub Lungs: coarse breath sounds; decreased at bases Abdomen: soft, nontender, nondistended, positive bowel sounds Extremities: no cyanosis or clubbing; 1+ edema Skin: warm and intact Objective Data Vital Signs Vital Signs: Vital Signs Temp Pulse Resp BP Pulse Ox O2 Del Method FiO2 11/04/22 12:00 97.4 F L 80 13 114/79 94 11/04/22 11:10 80 95 Mechanical Ventilation 45 11/04/22 10:00 80 22 H 91/61 L 96 11/04/22 10:00 80 11/04/22 08:00 71 22 H 92 Mechanical Ventilation 45 11/04/22 08:00 98.3 F 71 22 H 102/65 92 11/04/22 08:00 71 11/04/22 08:00 80 11/04/22 08:16 71 94 Mechanical Ventilation 45 11/04/22 08:00 98.3 F 11/04/22 06:50 71 22 H 11/04/22 06:50 71 22 H 11/04/22 05:05 71 94 Mechanical Ventilation 80 11/04/22 05:32 71 22 H 98/60 L 94 11/04/22 05:32 71 11/04/22 05:30 71 22 H 11/04/22 05:29 71 22 H 11/04/22 03:38 98.9 F 71 22 H 124/110 H 96 11/04/22 03:38 71 11/04/22 03:35
--- NOTE | 2022-11-04 13:17 | P.HPUP_ITS ---
History and Physical Update Update Date/Time: 11/04/22 13:17 History and Physical has been reviewed, including an updated exam of the patient. Pt admitted w/ respiratory failure, CHF, ARK/CKD, CHB, severe . Acquired a temporary pacing wire admission. He continues to have severe bra dycardia with second-degree AV block after having his electrolyte abnormalities etc. improved. He appears to have severe AV conduction disease and a permanent pacemaker is needed. He is intubated and some sedation but is quite alert and appears oriented and engaged with his care. Reviewed risks of pacemaker implant with patient. These include breathing problems, allergic reactions, bleeding, infection, pneumothorax, cardiac puncture, need for unanticipated surgery, lead dislodgement among others. . I have also called and spoken to his daughter, Dolores, [phone]. She is familiar with pacemakers asked her mother had 1. I refer again reviewed the risks and benefits and she also desires to proceed with the procedure. The patient had an IJ dialysis catheter placed on the right side this morning. Otherwise, There are NO changes in the patient's condition. Risks, benefits, and alternatives have been discussed and questions answered. Patient agrees to proceed with procedure.
--- NOTE | 2022-11-04 13:20 | WPDMODSED ---
Moderate Sedation Note-Pt Data Patient Data Diagnosis: complete heart block and second-degree AV block Present Complaint: complete heart block and second-degree AV block Congestive heart failure Severe aortic stenosis Neck acute on chronic kidney disease Respiratory failure Procedure to be performed/Plan: probable venogram conscious sedation implantation of a permanent dual-chamber pacemaker Allergies Allergy/AdvReac Type Severity Reaction Status Date / Time No Known Allergies Allergy Verified 11/01/22 16:16 Home Medications Medication Instructions Recorded Confirmed Type amlodipine 10 mg tablet 10 mg PO HS 11/01/22 11/01/22 History carvedilol 3.125 mg tablet 3.125 mg PO BID 11/01/22 11/01/22 History Current Medications: Active Medications Acetaminophen (Acetaminophen 325 Mg Tablet) 650 mg PO Q6H PRN PRN Reason: Mild Pain (1-3) or Fever Dextrose (Dextrose 50% 25 Gm/50 Ml Syringe) 12.5 gm IV PUSH PRN PRN; Protocol PRN Reason: Hypoglycemia Enoxaparin Sodium (Enoxaparin 30 Mg/0.3 Ml Syringe) 30 mg SUB-Q DAILY [facility] Last Admin: 11/04/22 08:26 Dose: Not Given Glucagon (Glucagon For Inj 1 Mg Vial) 1 mg IM PRN PRN; Protocol PRN Reason: Hypoglycemia Glucose (Glucose Oral Gel 15 Gm Of Glucse In 37.5 Gm Tube) 15 gm PO PRN PRN; Protocol PRN Reason: Hypoglycemia Sodium Bicarbonate 150 meq/ (Sterile Water) 1,100 mls @ 50 mls/hr IV CONT .Q22H [facility] Last Infusion: 11/04/22 05:30 Dose: 50 mls/hr Dextrose (Dextrose 5% 1,000 Ml) 1,000 mls @ 100 mls/hr IVPB PRN PRN; Protocol PRN Reason: Hypoglycemia Fentanyl Citrate (Fentanyl 2,500 Mcg/Ns 250 Ml) 2,500 mcg in 250 mls @ 2.5 mls/hr IV CONT .Q72H [facility]; Protocol Last Titration: 11/04/22 05:30 Dose: 25 mcg/hr, 2.5 mls/hr Midazolam HCl (Versed 100 Mg/Ns 100 Ml) 100 mg in 100 mls @ 0 mls/hr IV CONT .Q0M [facility]; Protocol Last Admin: 11/04/22 07:22 Dose: Not Given Propofol (Diprivan) 100 mls @ 3.894 mls/hr IV CONT .N52A50H [facility] Last Admin: 11/04/22 06:50 Dose: 5 mcg/kg/min, 3.89 mls/hr Vancomycin HCl (Vancomycin 2,000 Mg/D5w 500 Ml) 2,000 mg in 500 mls @ 250 mls/hr IVPB ONCE ONE Stop: 11/04/22 14:59 Norepinephrine Bitartrate (Levophed 8 Mg/D5w 250 Ml) 8 mg in 250 mls @ 9.375 mls/hr IV CONT .Q24H [facility] Insulin Aspart (Insulin Aspart (*Bkc) 100 Units/Ml) 2 - 5 units SUB-Q Q4HR [facility]; Protocol Last Admin: 11/04/22 13:01 Dose: Not Given Multi-Ingred Cream/Lotion/Oil/Oint (Mineral Oil/White Petrolatum Ointment) 1 applic EACH EYE Q12HR [facility] Last Admin: 11/04/22 08:27 Dose: 1 applic Ondansetron HCl (Ondansetron Inj 4 Mg/2 Ml Vial) 4 mg IV PUSH Q4H PRN PRN Reason: Nausea Last Admin: 11/02/22 04:22 Dose: 4 mg Pantoprazole Sodium (Pantoprazole Sodium Iv 40 Mg Vial) 40 mg IV PUSH QAM [facility] Last Admin: 11/04/22 08:26 Dose: 40 mg Sodium Chloride (Central Line Flush) 10 ml IV PUSH Q8HR [facility] Sodium Chloride (Central Line Flush) 10 ml IV PUSH DAILY@1800 [facility] Sodium Chloride (Central Line Flush) 20 ml IV PUSH PRN PRN PRN Reason: after blood draws Sedation/Anesthesia: No previous sedation/anesthesia problems (including family history). [facility] Past Medical History Medical History Chronic kidney disease Heart failure of unknown type History of pneumothorax Hypertension Restless legs syndrome Tobacco dependence Surgical History Surgical History History of hernia repair Family History Family History Other Heart disease Hypertension Social History Social History (Updated 11/04/22 @ 13:26 by Bernadette Shen MD) Social History: . Surrogate medical decision maker: Dolores Cho, daughter. ) Code status: Full code. Smoking packs per day: 0.5 Smoking cigarettes per day: 10.0 Years smoked: 20 Smoking pack-years: 10.00 Smoking status: Cu
[2022-11-04] MEDS: NOREPINEPHRINE 8 MG/D5W 250 ML 8 MG/250 ML BAG 5.63 MG IV CONT (13:47)
[2022-11-04] MEDS: CENTRAL LINE FLUSH 10 ML IV PUSH ×3 (13:49→20:27)
--- NOTE | 2022-11-04 14:10 | PC.NURSE ---
Patient to component lab tech for pacemaker insertion.
--- NOTE | 2022-11-04 16:54 | PM.OP ---
Procedure Note - Brief Procedure Note - Brief Date of procedure: 11/04/22 Pre-op diagnosis: CHB, 2nd degree AV block, CHF Post-op diagnosis: Other (s/p Biotronik dual chamber pacemaker) Description of procedure: uneventful permanent dual-chamber pacemaker implantation temporary pacemaker was removed Surgeon: Bernadette Shen MD Complications: No immediate complications Condition: Stable Disposition: ICU
--- NOTE | 2022-11-04 16:56 | W.PM.PROC2 ---
Procedure Note - Detailed Date of Procedure 11/04/22 Pre-op Diagnosis CHB, 2nd degree AV block, CHF Post-op Diagnosis Other ( status post permanent dual-chamber transvenous Biotronik pacemaker) Procedure Performed PROCEDURE PERFORMED: Conscious sedation Venogram Placement of a permanent dual-chamber pacemaker Removal of the temporary pacemaker under fluoroscopic guidance Surgeon Bernadette Shen MD Anesthesia Local ( with conscious sedation) Indications Pt admitted w/ respiratory failure, CHF, ARK/CKD, CHB, severe .? Required a temporary pacing wire on admission.? He continues to have severe bradycardia with second-degree AV block after having his electrolyte abnormalities etc. improved.? He appears to have severe AV conduction disease and a permanent pacemaker is indicated.? Findings Frequent APCs which could not be suppressed even pacing at 80 beats per minute Description of Procedure SITE: Left prepectoral area MEDICATIONS GIVEN IN FISH WARDEN: Vancomycin 2 gram IV piggyback CONSCIOUS SEDATION: Assessment: The patient has no history of anesthesia problems. The patient's oropharynx is intubated. The patient was deemed to be a good candidate for conscious sedation. The patient had continuous hemodynamic monitoring during the procedure. Start time: 1526 p.m. Completion time: 4:46 p.m. Total conscious sedation time: 80 minute Medications: Versed 2 mg IV push. Patient is already on a low-dose propofol drip, and a fentanyl drip at 50 micrograms/hour. Trained observer: Ashley Adkins RN Outcome: The patient tolerated the procedure well with no complications. PROCEDURE: After informed consent , the patient was brought to the senior cytogenetics laboratory director. He was on her low-dose Levophed drip, and above-mentioned per baseball and fentanyl drips. He was noted to have a faiint macular rash over his torso and abdomen but apparently he had that previously. The left prepectoral area was prepped and draped in usual fashion . The patient received preop antibiotic and conscious sedation . A venogram with 20 cc's of Visipque was performed showing the course of the left subclavian vein,which was patent. The left prepectoral area was anesthetized with lidocaine . Next a skin incision was made and carried down to the prepectoral fascia. Hemostasis was obtained using electrocautery . The pacer pocket was formed. The left subclavian vein was easily accessed with the micropuncture technique, and a J-tipped guide wire was passed into the inferior vena cava under fluoroscopic guidance. The needle was withdrawn. A 2nd wire was introduced in an identical fashion. A 6 Nepali safety sheath was passed over the lateral wire, the wire withdrawn, and the right ventricular lead was passed into the inferior vena cava under fluoroscopic guidance . The lead was then prolapsed through the tricuspid valve and advanced into the right ventricular apex. When suitable sensing and pacing thresholds were obtained, it was screwed into place. No extra cardiac stimulation was obtained using 10 volts. The sheath was withdrawn. Next, another 6 Nepali safety sheath was passed over the more medial wire, the wire withdrawn, and the right atrial lead was passed into the inferior vena cava under fluoroscopic guidance. Right atrial lead was then pulled back to the level of the right atrium and manipulated into the right atrial appendage . When suitable sensing and pacing thresholds were obtained , it was screwed into place . No extra cardiac stimulation was obtained using 10 volts. The sheath was withdrawn. Both leads were secured to the prepectoral fascia using 2-0 silk over their respective sleeves. The pocket was cleansed with antibiotic containing solution . The pulse generator was introduced into the operative field, and both leads were secured into the generator . A gentle tug showed the leads were securely fastened. The device was introduced into the pocket.
--- NOTE | 2022-11-04 17:30 | PC.NURSE ---
Patient back from Production Support Supervisor
[2022-11-04 17:50] LABS: Glucose Point of Care 129 mg/dl (65-105)
[2022-11-04] MEDS: diphenhydrAMINE HCl INJ 50 MG/ML VIAL IV PUSH (17:58)
[2022-11-04] MEDS: SODIUM BICARBONATE 8.4% 150 MEQ in WATER, STERILE FOR INJECTION 950 ML 50 MEQ IV CONT (18:04)
[2022-11-04 23:23] LABS: Albumin 3.3 g/dL (3.8-4.8); Alpha 1 Globulin 0.5 g/dL (0.2-0.3); Alpha 2 Globulin 0.8 g/dL (0.5-0.9); Beta 1 Globulin 0.4 g/dL (0.4-0.6); Gamma Globulin 1.3 g/dL (0.8-1.7); Protein, Total 6.5 g/dL (6.1-8.1)
[2022-11-05] VITALS (38 sets, daily range): BP systolic 104–151; BP diastolic 59–82; PULSE 60–86; RESP 16–22; TEMP 35.8–36.9; O2SAT 94–100
[2022-11-05 02:27] LABS: Glucose Point of Care 104 mg/dl (65-105)
[2022-11-05] MEDS: CENTRAL LINE FLUSH 10 ML IV PUSH ×4 (04:44→20:53)
[2022-11-05 05:06] LABS: Alveolar/Arterial O2 Gradient 213.3 mmHg; Base Excess ABG 0.9 mEq/l (+/-2.0); Carboxyhemoglobin 0.3 % THb (0-2.0); Fractional Inspired Oxygen 45 %; HCO3 ABG 24.5 mEq/l (22.0-26.0); Methemoglobin ABG 0.3 %THb (0-1.5); Oxygen Content ABG 16.2 %vol (16.0-22.0); Oxygen Saturation ABG 94.3 % (95.0-100.0); Oxyhemoglobin 92.5 % THb (90.0-100.0); PCO2 ABG 35.7 mmHg (35.0-45.0); PO2 ABG 66.9 mmHg (80.0-100.0); PO2 FiO2 Ratio Arterial Blood 1.49 %; Reduced Hemoglobin 6.9 %THb (0-5.0); Site Drawn RIGHT RADIAL; Total Hemoglobin 12.4 g/dL (12.0-18.0); pH ABG 7.454 (7.350-7.450)
[2022-11-05 05:07] LABS: Arterial Blood Gas PEEP 5 cmH2O; Arterial Blood Gas Tidal Volume 400 ml; Arterial Blood Gas Vent Mode CMV; Arterial Blood Gas Ventilator rate 22 /MIN; Device VENTILATOR; Modified Allen's Test Pass
[2022-11-05 05:58] LABS: Basophils Percent Auto 0.3 % (0.2-1.2); Eosinophils Absolute Auto 0.1 K/mm3 (0-0.3); Eosinophils Percent Auto 1.6 % (0-4.4); Hematocrit 35.2 % (42.0-52.0); Hemoglobin 11.5 g/dL (14.0-18.0); Immature Granulocyte Absolute 0.03 K/mm3 (0.00-0.031); Immature Granulocyte Percent A 0.4 % (0-0.5); Lymphocytes Absolute Auto 1.29 K/mm3 (0.9-3.2); Lymphocytes Percent Auto 18.6 % (18.3-44.2); Mean Corpuscular HGB Conc 32.7 g/dl (32-36); Mean Corpuscular Hemoglobin 29.3 pg (26-34); Mean Corpuscular Volume 89.8 fl (80-100); Monocytes Absolute Auto 0.4 K/mm3 (0.1-0.6); Monocytes Percent Auto 6.2 % (2.6-8.5); Neutrophils Percent Auto 72.9 % (45.5-73.1); Platelet Count Result 180 k/mm3 (150-375); Red Blood Count 3.92 M/mm3 (4.6-6.20); Red Cell Distribution Width 14.6 % (11.5-14.5); White Blood Count 6.9 K/mm3 (4.5-10.0)
[2022-11-05 06:20] LABS: Alanine Aminotransferase 11 U/L (6-50); Albumin Level 2.8 g/dL (3.5-5.1); Alkaline Phosphatase 83 U/L (38-126); Anion Gap 8 mmol/L (8-16); Aspartate Amino Transferase 12 U/L (17-59); Bilirubin,Total 0.5 mg/dL (0.2-1.3); Blood Urea Nitrogen 106 mg/dL (9-20); Calcium 6.8 mg/dL (8.4-10.2); Carbon Dioxide 28 mmol/L (22-30); Chloride 93 mmol/L (98-107); Estimated CRCL calculation 15 ml/min; Estimated Glomerular Filt Rate 8; Glucose 91 mg/dL (65-110); Magnesium 2.2 mg/dL (1.6-2.3); Phosphorus 6.2 mg/dL (2.5-4.5); Potassium 3.1 mmol/L (3.4-5.0); Sodium 129 mmol/L (137-145)
[2022-11-05 08:10] LABS: Glucose Point of Care 117 mg/dl (65-105)
--- NOTE | 2022-11-05 08:31 | WPDINTPN ---
Progress Note: A&P Assessment and Plan (1) Acute respiratory failure: Code(s): J96.00 - Acute respiratory failure, unspecified whether with hypoxia or hypercapnia Status: Acute (2) [id number] kidney injury: Code(s): N17.9 - Acute kidney failure, unspecified; N18.9 - Chronic kidney disease, unspecified Status: Acute (3) Heart block: Code(s): I45.9 - Conduction disorder, unspecified Status: Acute (4) Severe aortic stenosis: Code(s): I35.0 - Nonrheumatic aortic (valve) stenosis Status: Acute Plan Neuro: - On fentanyl and propofol for sedation - RASS goal 0 to -1. SAT after HD today. Cardiovascular: - Symptomatic bradycardia: s/p PPM placement 11/04 - Cardiology is following. Off pressors. Pulmonary: - Acute hypoxemic respiratory failure: remains intubated, continue AC mode for ventilation and follow ABG. Plan SAT/SBT today after HD session. - Pleural effusion: unable to find good pocket with U/S - all views showed lung parenchyma in too close of proximity to pleura with respirations. Will hopefully decrease in size with HD. GI: - resume TF. Renal: - XOCHITL on CKD: plan for HD today. Pt was on HD in the past, suspect he will require it permanently. Nephrology is following. D/w Nephrology. ID: - No acute issues. Heme/Onc: - No acute issues. Endocrine: - Continue SSI. Musculoskeletal/skin: - No acute issues. GI ppx: PPI DVT ppx: start heparin SC Time Spent With Patient Time: Critical care time: 40 minutes Subjective Date/time seen: 11/05/22 08:31 Pt remains on mechanical ventilation. Underwent temporary HD catheter and PPM placement yesterday. No acute events noted overnight. Review of Systems Review of Systems: ROS unobtainable: Yes unobtainable due to endotracheal tube Exam Narrative: General: WD/WN male intubated and on mechanical ventilation, awake and follows commands Heart: normal S1 and S2; no rub Lungs: coarse breath sounds Abdomen: soft, nontender, nondistended, positive bowel sounds Extremities: no cyanosis or clubbing; no edema Skin: warm and dry, PPM site C/D/I w/o erythema or drainage Objective Data Vital Signs Vital Signs: Vital Signs - 24 hr 11/04/22 10:00 11/04/22 10:00 11/04/22 11:10 Temperature Pulse Rate 80 80 80 Respiratory Rate 22 H Blood Pressure 91/61 L Pulse Oximetry 96 95 Oxygen Delivery Mechanical Ventilation Fraction of Inspired Oxygen 45 11/04/22 12:00 11/04/22 12:00 11/04/22 12:00 Temperature 97.4 F L Pulse Rate 80 80 Respiratory Rate 13 Blood Pressure 114/79 Pulse Oximetry 94 Oxygen Delivery Fraction of Inspired Oxygen 80 11/04/22 12:00 11/04/22 13:30 11/04/22 13:47 Temperature Pulse Rate 80 80 80 Respiratory Rate 16 Blood Pressure 96/73 L Pulse Oximetry 93 95 Oxygen Delivery Mechanical Ventilation Mechanical Ventilation Fraction of Inspired Oxygen 45 45 11/04/22 14:00 11/04/22 14:00 11/04/22 17:18 Temperature Pulse Rate 80 80 73 Respiratory Rate 22 H 18 Blood Pressure 100/70 120/62 Pulse Oximetry 95 97 Oxygen Delivery Fraction of Inspired Oxygen 11/04/22 18:03 11/04/22 14:18 11/04/22 15:22 Temperature Pulse Rate 69 80 72 Respiratory Rate 19 Blood Pressure Pulse Oximetry 94 97 Oxygen Delivery Mechanical Ventilation Mechanical Ventilation Fraction of Inspired Oxygen 45 45 11/04/22 17:38 11/04/22 18:00 11/04/22 18:00 Temperature 97.0 F L Pulse Rate 75 70 70 Respiratory Rate 21 H Blood Pressure 120/63 Pulse Oximetry 98 97 Oxygen Delivery Mechanical Ventilation Fraction of Inspired Oxygen 45 11/04/22 14:00 11/04/22 17:30 11/04/22 18:00 Temperature Pulse Rate 80 72 70 Respiratory Rate Blood Pressure 100/70 120/62 120/63 Pulse Oximetry Oxygen Delivery Fraction of Inspired Oxygen 11/04/22 10:00 11/04/22 12:00 11/04/22 14:00 Temperature Pulse Rate 80 80 80 Respirat
[2022-11-05] MEDS: PANTOPRAZOLE SODIUM IV 40 MG VIAL IV PUSH (08:36)
[2022-11-05] MEDS: MINERAL OIL/WHITE PETROLATUM OINTMENT 1 APPLIC EACH EYE ×2 (08:36→20:53)
--- NOTE | 2022-11-05 08:55 | PM.PNCARD ---
Progress Note: A&P Assessment and Plan (1) Heart block: Code(s): I45.9 - Conduction disorder, unspecified Status: Acute Assessment and Plan: High-grade block (2:1 AVB) noted on EKGs with some evidence of complete heart block on tele. In the setting of acute hypoxic respiratory failure, severe XOCHITL on CKD, significant hyperkalemia, metabolic acidosis. Coreg is also listed as a home medication. Temporary transvenous pacer placed 11/02 via right femoral vein. Now s/p PPM placement yesterday with Dr. Shen. Pacer numbers looked good this a.m. Follow up CXR with no pneumo. He does have pulmonary edema and bilateral pleural effusions. Volume management with HD. Echocardiogram 11/02 shows: LVEF 65-70%, severe , moderate TR, pulmonary HTN with estimated PASP 64mmHg. Stable from a cardiac perspective s/p pacemaker implantation yesterday. Cardiology will sign off. Please do not hesitate to contact us with any questions. (2) Severe aortic stenosis: Code(s): I35.0 - Nonrheumatic aortic (valve) stenosis Status: Acute Assessment and Plan: Echocardiogram 11/02 shows: LVEF 65-70%, severe , moderate TR, pulmonary HTN with estimated PASP 64mmHg. Avoid hypotension in this patient given severe . Will need outpatient follow-up/management for valvular disease. Given his age, will need to rule out bicuspid aortic valve (can be done as outpatient). Subjective Date/time seen: 11/05/22 08:55 Cardiology follow up for complete heart block Awake on the ventilator. S/p PPM placement yesterday. No acute events overnight. On dialysis at the time of my visit. Review of Systems Review of Systems: ROS unobtainable: Yes unobtainable due to endotracheal tube and unobtainable due to medical condition Exam Const: General: no acute distress Other: Remains intubated but nods head to yes or no questions HENMT: Other: OETT in place Eyes: Sclera: sclerae normal Neck: Neck: supple Resp: Other: Intubated and on mechanical ventilation. Decreased breath sounds at bases. Cardio: Rate: regular rate Rhythm: regular rhythm Heart sounds: Murmur heart sound present GI: Other: fecal containment system in place Skin: General skin exam: normal color Other: Left upper chest PPM dressing free from drainage. No hematoma. Neuro: Other: Awake and alert on ventilator Extrem: General: normal to inspection Psych: Affect: normal affect Objective Data Vital Signs Vital Signs: Vital Signs - 24 hr 11/04/22 10:00 11/04/22 10:00 11/04/22 11:10 Temperature Pulse Rate 80 80 80 Respiratory Rate 22 H Blood Pressure 91/61 L Pulse Oximetry 96 95 Oxygen Delivery Mechanical Ventilation Fraction of Inspired Oxygen 45 11/04/22 12:00 11/04/22 12:00 11/04/22 12:00 Temperature 36.3 C L Pulse Rate 80 80 Respiratory Rate 13 Blood Pressure 114/79 Pulse Oximetry 94 Oxygen Delivery Fraction of Inspired Oxygen 80 11/04/22 12:00 11/04/22 13:30 11/04/22 13:47 Temperature Pulse Rate 80 80 80 Respiratory Rate 16 Blood Pressure 96/73 L Pulse Oximetry 93 95 Oxygen Delivery Mechanical Ventilation Mechanical Ventilation Fraction of Inspired Oxygen 45 45 11/04/22 14:00 11/04/22 14:00 11/04/22 17:18 Temperature Pulse Rate 80 80 73 Respiratory Rate 22 H 18 Blood Pressure 100/70 120/62 Pulse Oximetry 95 97 Oxygen Delivery Fraction of Inspired Oxygen 11/04/22 18:03 11/04/22 14:18 11/04/22 15:22 Temperature Pulse Rate 69 80 72 Respiratory Rate 19 Blood Pressure Pulse Oximetry 94 97 Oxygen Delivery Mechanical Ventilation Mechanical Ventilation Fraction of Inspired Oxygen 45 45 11/04/22 17:38 11/04/22 18:00 11/04/22 18:00 Temperature 36.1 C L Pulse Rate 75 70 70 Respiratory Rate 21 H Blood Pressure 120/63 Pulse Oximetry 98 97 Oxygen Delivery Mechanical Ventilation Fraction of Inspired Oxygen 45
--- NOTE | 2022-11-05 11:27 | PCFNICU ---
ICU Rounding Note: Pt current nutrition is NPO, Tube feeding: Nepro at 40ml/hr. Nutrition recommendation: Pause tube feedings today for breathing trial Last recorded weight is 131 kg. Bowel Motility: +BM 11/04 Labs Reviewed: Hgb:11.5, HCT:35.2, Alb:2.8, NA:129, K:3.1, BUN:106, Cr:7, Phos:6.2 Meds Noted: Fentanyl, protonix, lasix, propofol held for breathing trial = 0kcals Skin: WNL Additional Notes: Pt continues on mechanical ventilation. Pacemaker placed, dialysis orders. Tube feedings running at goal rate, to be held again today though for breathing trial. Agree with diet orders Following daily in ICU rounds. Will monitor in ICU rounds as reassess every Wednesday and Wednesday..
[2022-11-05] MEDS: SODIUM CHLORIDE 0.9% IV 1,000 ML 999 ML IV CONT (11:50)
[2022-11-05 12:02] LABS: Glucose Point of Care 110 mg/dl (65-105)
--- NOTE | 2022-11-05 12:17 | P.PNNP_ITS ---
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 * evaluation to date: * urine electrolytes prerenal * urine eosinophils negative * CPK low * renal ultrasound without obstruction * some improvement noted with interventions to date * HD today for clearance and fluid removal tomorrow * follow trend of repeat labs and UOP for potential recovery (2) Chronic kidney disease, stage IV (severe): Code(s): N18.4 - Chronic kidney disease, stage 4 (severe) Status: Chronic Assessment and Plan: * on discharge from [facility] in July 2022, his creatinine was 3.1mg/dl * prior to his hospitalization in May 2022, his creatinine was running 2.3mg/dl * CKD thought to be secondary to HTN, DM, and obesity * given his advanced CKD at baseline, he may need chronic dialysis therapy (3) Hyperkalemia: Code(s): E87.5 - Hyperkalemia Status: Acute Assessment and Plan: * responded to medical therapy in the form of IV bicarb, IV insulin, and D50 * lokelma PRN * follow trend of repeat K+ levels (4) Acute respiratory failure: Code(s): J96.00 - Acute respiratory failure, unspecified whether with hypoxia or hypercapnia Status: Acute Assessment and Plan: * due to volume overload and associated heart block * intubated due to worsening hypoxia and altered mental status * continue ventilator management for now * consider thoracentesis once more stable * weaning as tolerated (5) Metabolic acidosis with respiratory acidosis: Code(s): E87.4 - Mixed disorder of acid-base balance Status: Acute Assessment and Plan: * improvement with bicarb IVFs and mechanical ventilation * follow parameters (6) Heart block: Code(s): I45.9 - Conduction disorder, unspecified Status: Acute Assessment and Plan: * as noted by events on admission - variable heart block * s/p transvenous pacemaker (on 11/02/22) * Cardiology following * Echo results noted (7) Shock: Code(s): R57.9 - Shock, unspecified Status: Acute Assessment and Plan: * resolving * thought to be cardiogenic in nature * off dopamine but remains paced * follow trend of hemodynamics Will continue to follow. Subjective Date/time seen: 11/05/22 12:17 S/P permanent pacemaker as well as temporary HD catheter placement yesterday; tolerating dialysis treatment at the time of my visit (seen on HD at ~ 12:00pm); remains intubated and on mechanical ventilation; no issues/events overnight or earlier this AM. Exam Narrative: General: WD/WN male intubated and on mechanical ventilation Heart: normal S1 and S2; no rub Lungs: coarse breath sounds; decreased at bases Abdomen: soft, nontender, nondistended, positive bowel sounds Extremities: no cyanosis or clubbing; 1+ edema Skin: no rash Objective Data Vital Signs Vital Signs: Vital Signs Temp Pulse Resp BP Pulse Ox O2 Del Method FiO2 11/05/22 12:00 98.5 F 71 16 134/82 96 11/05/22 12:14 65 116/70 11/05/22 12:00 65 104/67 11/05/22 11:45 71 126/76 11/05/22 11:29 67 97 Mechan
--- NOTE | 2022-11-05 12:17 | PM.PNNEP ---
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: urine electrolytes prerenal urine eosinophils negative CPK low renal ultrasound without obstruction some improvement noted with interventions to date HD today for clearance and fluid removal tomorrow follow trend of repeat labs and UOP for potential recovery (2) Chronic kidney disease, stage IV (severe): Code(s): N18.4 - Chronic kidney disease, stage 4 (severe) Status: Chronic Assessment and Plan: on discharge from [facility] in July 2022, his creatinine was 3.1mg/dl prior to his hospitalization in May 2022, his creatinine was running 2.3mg/dl CKD thought to be secondary to HTN, DM, and obesity given his advanced CKD at baseline, he may need chronic dialysis therapy (3) Hyperkalemia: Code(s): E87.5 - Hyperkalemia Status: Acute Assessment and Plan: responded to medical therapy in the form of IV bicarb, IV insulin, and D50 lokelma PRN follow trend of repeat K+ levels (4) Acute respiratory failure: Code(s): J96.00 - Acute respiratory failure, unspecified whether with hypoxia or hypercapnia Status: Acute Assessment and Plan: due to volume overload and associated heart block intubated due to worsening hypoxia and altered mental status continue ventilator management for now consider thoracentesis once more stable weaning as tolerated (5) Metabolic acidosis with respiratory acidosis: Code(s): E87.4 - Mixed disorder of acid-base balance Status: Acute Assessment and Plan: improvement with bicarb IVFs and mechanical ventilation follow parameters (6) Heart block: Code(s): I45.9 - Conduction disorder, unspecified Status: Acute Assessment and Plan: as noted by events on admission - variable heart block s/p transvenous pacemaker (on 11/02/22) Cardiology following Echo results noted (7) Shock: Code(s): R57.9 - Shock, unspecified Status: Acute Assessment and Plan: resolving thought to be cardiogenic in nature off dopamine but remains paced follow trend of hemodynamics Will continue to follow. Subjective Date/time seen: 11/05/22 12:17 S/P permanent pacemaker as well as temporary HD catheter placement yesterday; tolerating dialysis treatment at the time of my visit (seen on HD at ~ 12:00pm); remains intubated and on mechanical ventilation; no issues/events overnight or earlier this AM. Exam Narrative: General: WD/WN male intubated and on mechanical ventilation Heart: normal S1 and S2; no rub Lungs: coarse breath sounds; decreased at bases Abdomen: soft, nontender, nondistended, positive bowel sounds Extremities: no cyanosis or clubbing; 1+ edema Skin: no rash Objective Data Vital Signs Vital Signs: Vital Signs Temp Pulse Resp BP Pulse Ox O2 Del Method FiO2 11/05/22 12:00 98.5 F 71 16 134/82 96 11/05/22 12:14 65 116/70 11/05/22 12:00 65 104/67 11/05/22 11:45 71 126/76 11/05/22 11:29 67 97 Mechanical Ventilation 45 11/05/22 08:00 81 11/05/22 11:30 71 124/73 11/05/22 11:15 66 114/72 11/05/22 11:00 65 109/67 11/05/22 10:45 67 125/77 11/05/22 08:00 45 11/05/22 09:53 75 22 H 123/62 94 11/05/22 10:30 70 121/70 11/05/22 10:15 68 121/70 11/05/22 10:00 71 111/68 11/05/22 09:45 74 123/62 11/05/22 09:30 68 125/59 L 11/05/22 09:13 70 122/70 11/05/22 09:00 98.3 F 60 22 H 120/63 94 11/05/22 09:00 45 11/05/22 08:00 98.4 F 67 18 133/76 95 11/05/22 08:00 72 99 Mechanical Ventilation 45 11/05/22 0
[2022-11-05] MEDS: HEPARIN SODIUM 5,000 UNITS/ML VIAL 5000 UNITS SUB-Q ×2 (15:17→20:53)
[2022-11-05 18:17] LABS: Glucose Point of Care 102 mg/dl (65-105)
[2022-11-06] VITALS (34 sets, daily range): BP systolic 119–166; BP diastolic 63–89; PULSE 63–117; RESP 18–31; TEMP 36–36.9; O2SAT 92–99
[2022-11-06 01:50] LABS: Glucose Point of Care 96 mg/dl (65-105)
[2022-11-06] MEDS: CENTRAL LINE FLUSH 10 ML IV PUSH ×4 (06:15→20:32)
[2022-11-06 06:32] LABS: Alanine Aminotransferase 11 U/L (6-50); Albumin Level 3.1 g/dL (3.5-5.1); Alkaline Phosphatase 89 U/L (38-126); Anion Gap 7 mmol/L (8-16); Aspartate Amino Transferase 13 U/L (17-59); Bilirubin,Total 0.6 mg/dL (0.2-1.3); Blood Urea Nitrogen 64 mg/dL (9-20); Calcium 7.6 mg/dL (8.4-10.2); Carbon Dioxide 30 mmol/L (22-30); Chloride 98 mmol/L (98-107); Estimated CRCL calculation 18 ml/min; Estimated Glomerular Filt Rate 10; Glucose 88 mg/dL (65-110); Magnesium 2.3 mg/dL (1.6-2.3); Phosphorus 5.6 mg/dL (2.5-4.5); Potassium 3.5 mmol/L (3.4-5.0); Sodium 135 mmol/L (137-145)
[2022-11-06 06:37] LABS: Basophils Percent Auto 0.4 % (0.2-1.2); Eosinophils Absolute Auto 0.2 K/mm3 (0-0.3); Eosinophils Percent Auto 2.6 % (0-4.4); Hematocrit 38.4 % (42.0-52.0); Hemoglobin 12.3 g/dL (14.0-18.0); Immature Granulocyte Absolute 0.02 K/mm3 (0.00-0.031); Immature Granulocyte Percent A 0.3 % (0-0.5); Lymphocytes Absolute Auto 1.24 K/mm3 (0.9-3.2); Lymphocytes Percent Auto 16.4 % (18.3-44.2); Mean Corpuscular Hemoglobin 30.2 pg (26-34); Mean Corpuscular Volume 94.3 fl (80-100); Monocytes Absolute Auto 0.4 K/mm3 (0.1-0.6); Monocytes Percent Auto 5.6 % (2.6-8.5); Neutrophils Absolute Auto 5.6 K/mm3 (1.3-6.7); Neutrophils Percent Auto 74.7 % (45.5-73.1); Platelet Count Result 175 k/mm3 (150-375); Red Blood Count 4.07 M/mm3 (4.6-6.20); Red Cell Distribution Width 14.8 % (11.5-14.5); White Blood Count 7.6 K/mm3 (4.5-10.0)
[2022-11-06] MEDS: HEPARIN SODIUM 5,000 UNITS/ML VIAL 5000 UNITS SUB-Q ×3 (06:45→20:32)
--- NOTE | 2022-11-06 09:01 | WPDINTPN ---
Progress Note: A&P Assessment and Plan (1) Acute respiratory failure: Code(s): J96.00 - Acute respiratory failure, unspecified whether with hypoxia or hypercapnia Status: Acute (2) [id number] kidney injury: Code(s): N17.9 - Acute kidney failure, unspecified; N18.9 - Chronic kidney disease, unspecified Status: Acute (3) Heart block: Code(s): I45.9 - Conduction disorder, unspecified Status: Acute (4) Severe aortic stenosis: Code(s): I35.0 - Nonrheumatic aortic (valve) stenosis Status: Acute Plan Neuro: - All sedation off for SAT today. Cardiovascular: - Symptomatic bradycardia: s/p PPM placement 11/04 - Cardiology is following. Off pressors. Pulmonary: - Acute hypoxemic respiratory failure: remains intubated, currently undergoing SBT - will extubate if passes. - Pleural effusion: unable to find good pocket with U/S - all views showed lung parenchyma in too close of proximity to pleura with respirations. Will hopefully decrease in size with HD. GI: - hold TF for extubation, swallow evaluation tomorrow with WELT STITCHER if extubated. Renal: - XOCHITL on CKD: underwent first HD 11/05; plan for DUF today. Pt was on HD in the past, suspect he will require it permanently. Nephrology is following. D/w Nephrology. ID: - No acute issues. Heme/Onc: - No acute issues. Endocrine: - Continue SSI. Musculoskeletal/skin: - No acute issues. GI ppx: PPI DVT ppx: heparin SC Time Spent With Patient Time: Critical care time: 32 minutes Subjective Date/time seen: 11/06/22 09:01 24h summary: Pt remains on mechanical ventilation. Underwent HD yesterday with 4L UF. Plan for UF today. Currently on SBT. Review of Systems Review of Systems: ROS unobtainable: Yes unobtainable due to endotracheal tube Exam Narrative: General: WD/WN male intubated and on mechanical ventilation, awake and follows commands Heart: normal S1 and S2; no rub Lungs: coarse breath sounds Abdomen: soft, nontender, nondistended, positive bowel sounds Extremities: no cyanosis or clubbing; no edema Skin: warm and dry, PPM site C/D/I w/o erythema or drainage Objective Data Vital Signs Vital Signs: Vital Signs - 24 hr 11/05/22 09:13 11/05/22 09:30 11/05/22 09:45 Temperature Pulse Rate 70 68 74 Respiratory Rate Blood Pressure 122/70 125/59 L 123/62 Pulse Oximetry Oxygen Delivery Fraction of Inspired Oxygen 11/05/22 10:00 11/05/22 10:15 11/05/22 10:30 Temperature Pulse Rate 71 68 70 Respiratory Rate Blood Pressure 111/68 121/70 121/70 Pulse Oximetry Oxygen Delivery Fraction of Inspired Oxygen 11/05/22 09:53 11/05/22 10:45 11/05/22 11:00 Temperature Pulse Rate 75 67 65 Respiratory Rate 22 H Blood Pressure 123/62 125/77 109/67 Pulse Oximetry 94 Oxygen Delivery Fraction of Inspired Oxygen 11/05/22 11:15 11/05/22 11:30 11/05/22 11:29 Temperature Pulse Rate 66 71 67 Respiratory Rate Blood Pressure 114/72 124/73 Pulse Oximetry 97 Oxygen Delivery Mechanical Ventilation Fraction of Inspired Oxygen 45 11/05/22 11:45 11/05/22 12:00 11/05/22 12:14 Temperature Pulse Rate 71 65 65 Respiratory Rate Blood Pressure 126/76 104/67 116/70 Pulse Oximetry Oxygen Delivery Fraction of Inspired Oxygen 11/05/22 12:26 11/05/22 12:00 11/05/22 12:00 Temperature 97.9 F 98.5 F Pulse Rate 71 71 Respiratory Rate 22 H 16 Blood Pressure 122/64 134/82 Pulse Oximetry 97 96 Oxygen Delivery Mechanical Ventilation Fraction of Inspired Oxygen 45 11/05/22 12:00 11/05/22 13:36 11/05/22 14:54 Temperature Pulse Rate 72 80 Respiratory Rate Blood Pressure Pulse Oximetry 97 96 Oxygen Delivery Mechanical Ventilation Mechanical Ventilation Fraction of Inspired Oxygen 45 45 45 11/05/22 10:00 11/05/22 12:00 11/05/22 14:00 Temperature Pulse Rate 70 64 68 Respiratory Rate Blood Pressure Pulse O
[2022-11-06] MEDS: PANTOPRAZOLE SODIUM IV 40 MG VIAL IV PUSH (09:21)
--- NOTE | 2022-11-06 10:21 | P.PNNP_ITS ---
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 * His volume status is a little bit on the high side. Discussed with Dr. Nino and will do a dry ultrafiltration today. * We can start diuretics tomorrow to see if he starts to make more urine. (2) Chronic kidney disease, stage IV (severe): Code(s): N18.4 - Chronic kidney disease, stage 4 (severe) Status: Chronic Assessment and Plan: * on discharge from [facility] in July 2022, his creatinine was 3.1mg/dl * prior to his hospitalization in May 2022, his creatinine was running 2.3mg/dl * CKD thought to be secondary to HTN, DM, and obesity * given his advanced CKD at baseline, he may need chronic dialysis therapy (3) Hyperkalemia: Code(s): E87.5 - Hyperkalemia Status: Acute Assessment and Plan: * responded to medical therapy in the form of IV bicarb, IV insulin, and D50 * Potassium is good today. (4) Acute respiratory failure: Code(s): J96.00 - Acute respiratory failure, unspecified whether with hypoxia or hypercapnia Status: Acute Assessment and Plan: * due to volume overload and associated heart block * intubated due to worsening hypoxia and altered mental status * Now extubated. (5) Metabolic acidosis with respiratory acidosis: Code(s): E87.4 - Mixed disorder of acid-base balance Status: Acute Assessment and Plan: * Bicarbonate level is now 30. He is off bicarb supplements. (6) Heart block: Code(s): I45.9 - Conduction disorder, unspecified Status: Acute Assessment and Plan: * as noted by events on admission - variable heart block * s/p transvenous pacemaker (on 11/02/22) * Cardiology following * Echo results noted (7) Shock: Code(s): R57.9 - Shock, unspecified Status: Acute Assessment and Plan: * Blood pressure is much better Subjective Date/time seen: 11/06/22 10:21 Interval history: patient feels better. He was just extubated. He is breathing okay. He has a little bit of a cough. He is hungry. Speech therapy to come and evaluate his swallowing shortly. Exam Narrative: General: WD/WN male intubated and on mechanical ventilation Heart: normal S1 and S2; no rub or gallop Lungs: coarse breath sounds; decreased at bases Abdomen: soft, nontender, nondistended, positive bowel sounds Extremities: no cyanosis or clubbing; 1+ edema Skin: No rash or subQ nodules Objective Data Vital Signs Vital Signs: Vital Signs - 24 hr 11/05/22 10:30 11/05/22 10:45 11/05/22 11:00 Temperature Pulse Rate 70 67 65 Respiratory Rate Blood Pressure 121/70 125/77 109/67 Pulse Oximetry Oxygen Delivery Oxygen Flow Rate Fraction of Inspired Oxygen 11/05/22 11:15 11/05/22 11:30 11/05/22 11:29 Temperature Pulse Rate 66 71 67 Respiratory Rate Blood Pressu
--- NOTE | 2022-11-06 10:21 | PM.PNNEP ---
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 His volume status is a little bit on the high side. Discussed with Dr. Nino and will do a dry ultrafiltration today. We can start diuretics tomorrow to see if he starts to make more urine. (2) Chronic kidney disease, stage IV (severe): Code(s): N18.4 - Chronic kidney disease, stage 4 (severe) Status: Chronic Assessment and Plan: on discharge from [facility] in July 2022, his creatinine was 3.1mg/dl prior to his hospitalization in May 2022, his creatinine was running 2.3mg/dl CKD thought to be secondary to HTN, DM, and obesity given his advanced CKD at baseline, he may need chronic dialysis therapy (3) Hyperkalemia: Code(s): E87.5 - Hyperkalemia Status: Acute Assessment and Plan: responded to medical therapy in the form of IV bicarb, IV insulin, and D50 Potassium is good today. (4) Acute respiratory failure: Code(s): J96.00 - Acute respiratory failure, unspecified whether with hypoxia or hypercapnia Status: Acute Assessment and Plan: due to volume overload and associated heart block intubated due to worsening hypoxia and altered mental status Now extubated. (5) Metabolic acidosis with respiratory acidosis: Code(s): E87.4 - Mixed disorder of acid-base balance Status: Acute Assessment and Plan: Bicarbonate level is now 30. He is off bicarb supplements. (6) Heart block: Code(s): I45.9 - Conduction disorder, unspecified Status: Acute Assessment and Plan: as noted by events on admission - variable heart block s/p transvenous pacemaker (on 11/02/22) Cardiology following Echo results noted (7) Shock: Code(s): R57.9 - Shock, unspecified Status: Acute Assessment and Plan: Blood pressure is much better Subjective Date/time seen: 11/06/22 10:21 Interval history: patient feels better. He was just extubated. He is breathing okay. He has a little bit of a cough. He is hungry. Speech therapy to come and evaluate his swallowing shortly. Exam Narrative: General: WD/WN male intubated and on mechanical ventilation Heart: normal S1 and S2; no rub or gallop Lungs: coarse breath sounds; decreased at bases Abdomen: soft, nontender, nondistended, positive bowel sounds Extremities: no cyanosis or clubbing; 1+ edema Skin: No rash or subQ nodules Objective Data Vital Signs Vital Signs: Vital Signs - 24 hr 11/05/22 10:30 11/05/22 10:45 11/05/22 11:00 Temperature Pulse Rate 70 67 65 Respiratory Rate Blood Pressure 121/70 125/77 109/67 Pulse Oximetry Oxygen Delivery Oxygen Flow Rate Fraction of Inspired Oxygen 11/05/22 11:15 11/05/22 11:30 11/05/22 11:29 Temperature Pulse Rate 66 71 67 Respiratory Rate Blood Pressure 114/72 124/73 Pulse Oximetry 97 Oxygen Delivery Mechanical Ventilation Oxygen Flow Rate Fraction of Inspired Oxygen 45 11/05/22 11:45 11/05/22 12:00 11/05/22 12:14 Temperature Pulse Rate 71 65 65 Respiratory Rate Blood Pressure 126/76 104/67 116/70 Pulse Oximetry Oxygen Delivery Oxygen Flow Rate Fraction of Inspired Oxygen 11/05/22 12:26 11/05/22 12:00 11/05/22 12:00 Temperature 97.9 F 98.5 F Pulse Rate 71 71 Respiratory Rate 22 H 16 Blood Pressure 122/64 134/82 Pulse Oximetry 97 96 Oxygen Delivery Mechanical Ventilation Oxygen Flow Rate Fraction of Inspired Oxygen 45 11/05/22 12:00 11/05/22 13:36 11/05/22 14:
--- NOTE | 2022-11-06 11:36 | PCNFU ---
Nutrition Follow-Up Complete: Inadequate Oral Intake as related to mechanical ventilation as evidenced by NPO goal: Meet estimated nutritional needs patient is progressing towards goal. We will continue current goal. Pt current nutrition is NPO Last recorded weight is 118.3 kg. Bowel Motility: +BM reported 11/06 Labs Reviewed:GFR 10, BUN 64, Cr 5.8,Alb 3.1,Na 135 Meds Noted:Protonix, NovoLog, Heparin Skin: WNL Additional Notes:Patient extubated today. NPO at this time. Plans for speech eval 11/07. Will monitor in ICU rounds as reassess every 3 days.
[2022-11-06 12:16] LABS: Glucose Point of Care 94 mg/dl (65-105)
--- NOTE | 2022-11-06 14:42 | PCOTNOTE ---
Unable to see pt. for occupational therapy evaluation at this time as pt. is in dialysis
[2022-11-06 18:20] LABS: Glucose Point of Care 85 mg/dl (65-105)
[2022-11-07] VITALS (63 sets, daily range): BP systolic 90–165; BP diastolic 50–79; PULSE 68–96; RESP 17–31; TEMP 36–36.9; O2SAT 86–99
[2022-11-07 00:07] LABS: Glucose Point of Care 84 mg/dl (65-105)
[2022-11-07 05:37] LABS: Glucose Point of Care 80 mg/dl (65-105)
[2022-11-07 05:42] LABS: Basophils Percent Auto 0.4 % (0.2-1.2); Eosinophils Absolute Auto 0.2 K/mm3 (0-0.3); Eosinophils Percent Auto 3.4 % (0-4.4); Hematocrit 40.2 % (42.0-52.0); Hemoglobin 12.5 g/dL (14.0-18.0); Immature Granulocyte Absolute 0.02 K/mm3 (0.00-0.031); Immature Granulocyte Percent A 0.3 % (0-0.5); Lymphocytes Absolute Auto 0.94 K/mm3 (0.9-3.2); Lymphocytes Percent Auto 13.4 % (18.3-44.2); Mean Corpuscular HGB Conc 31.1 g/dl (32-36); Mean Corpuscular Hemoglobin 29.8 pg (26-34); Mean Corpuscular Volume 95.9 fl (80-100); Mean Platelet Volume 9.3 fl (7.4-10.4); Monocytes Absolute Auto 0.5 K/mm3 (0.1-0.6); Monocytes Percent Auto 6.4 % (2.6-8.5); Neutrophils Absolute Auto 5.3 K/mm3 (1.3-6.7); Neutrophils Percent Auto 76.1 % (45.5-73.1); Platelet Count Result 161 k/mm3 (150-375); Red Blood Count 4.19 M/mm3 (4.6-6.20); Red Cell Distribution Width 14.6 % (11.5-14.5)
[2022-11-07] MEDS: HEPARIN SODIUM 5,000 UNITS/ML VIAL 5000 UNITS SUB-Q ×3 (05:43→21:26)
[2022-11-07] MEDS: CENTRAL LINE FLUSH 10 ML IV PUSH ×4 (05:44→21:19)
[2022-11-07 05:57] LABS: Alanine Aminotransferase 12 U/L (6-50); Albumin Level 3.2 g/dL (3.5-5.1); Alkaline Phosphatase 89 U/L (38-126); Anion Gap 9 mmol/L (8-16); Aspartate Amino Transferase 17 U/L (17-59); Bilirubin,Total 0.6 mg/dL (0.2-1.3); Blood Urea Nitrogen 66 mg/dL (9-20); Calcium 7.9 mg/dL (8.4-10.2); Carbon Dioxide 28 mmol/L (22-30); Chloride 104 mmol/L (98-107); Estimated CRCL calculation 16 ml/min; Estimated Glomerular Filt Rate 9; Glucose 82 mg/dL (65-110); Magnesium 2.4 mg/dL (1.6-2.3); Phosphorus 6.2 mg/dL (2.5-4.5); Potassium 3.8 mmol/L (3.4-5.0); Sodium 141 mmol/L (137-145)
[2022-11-07] MEDS: PANTOPRAZOLE SODIUM IV 40 MG VIAL IV PUSH (08:12)
[2022-11-07] MEDS: MINERAL OIL/WHITE PETROLATUM OINTMENT 1 APPLIC EACH EYE (08:12)
--- NOTE | 2022-11-07 08:20 | PM.IMPN ---
Progress Note: A&P Assessment and Plan (1) Acute respiratory failure: Code(s): J96.00 - Acute respiratory failure, unspecified whether with hypoxia or hypercapnia Status: Acute (2) Darzc-yq-dnpdmof kidney injury: Code(s): N17.9 - Acute kidney failure, unspecified; N18.9 - Chronic kidney disease, unspecified Status: Acute (3) Heart block: Code(s): I45.9 - Conduction disorder, unspecified Status: Acute (4) Severe aortic stenosis: Code(s): I35.0 - Nonrheumatic aortic (valve) stenosis Status: Acute Plan 57-year-old male smoker with hypertension, congestive heart failure, and chronic kidney disease with temporary dialysis last fall who presented to the ED via EMS from home for evaluation of weakness, ended up intubated in the ICU 11/02 on urgent hemodialysis 11/05 due to fluid overload, now extubated and status post pacemaker implantation due to bradycardia and heart block, continuing to receive dialysis. Acute Hypoxic Resp Failure: Extubated, stable on 2 L nasal cannula Incentive spirometer, up to chair May need to attempt thoracentesis again in the future if fluid does not resolve with hemodialysis Bradycardia with heart block: Status post pacemaker, appreciate Cardiology, stable XOCHITL on CKD: Continue hemodialysis per Nephrology DVT ppx: Lovenox Code:Full Dispo: Moved out of the ICU 11/07, may need rehab Subjective Date/time seen: 11/07/22 08:20 Interval history: Extubated, no overnight events. Eager to eat. No fevers. No chest pain, SOB, NVD. Review of Systems Review of Systems: 12 point review of systems was assessed and was negative except as noted in the HPI Exam Narrative: General: No acute distress, alert and oriented per baseline HEENT: Atraumatic, normocephalic, mucous membranes moist CV: Regular rate and rhythm, S1, S2 Lungs: Coarse breath sounds throughout, good air entry Abdomen: Soft, nontender, nondistended Extremities: Chronic venous stasis dermatitis Skin: No rashes noted, no lesions or wounds seen Psych: Dysthymic, irritable Objective Data Vital Signs Vital Signs: Vital Signs - 24 hr 11/06/22 08:35 11/06/22 09:11 11/06/22 09:12 Temperature Pulse Rate 110 H 116 H 117 H Respiratory Rate Blood Pressure Pulse Oximetry 94 93 93 Oxygen Delivery Mechanical Ventilation Nasal Cannula Oxygen Flow Rate 4 Fraction of Inspired Oxygen 40 11/06/22 10:00 11/06/22 10:00 11/06/22 12:00 Temperature Pulse Rate 89 89 Respiratory Rate 31 H Blood Pressure 135/74 Pulse Oximetry 94 94 Oxygen Delivery Nasal Cannula Oxygen Flow Rate 4 Fraction of Inspired Oxygen 11/06/22 12:00 11/06/22 12:00 11/06/22 14:00 Temperature 98 F Pulse Rate 88 88 87 Respiratory Rate 30 H 18 Blood Pressure 124/67 125/64 Pulse Oximetry 98 98 Oxygen Delivery Oxygen Flow Rate Fraction of Inspired Oxygen 11/06/22 14:15 11/06/22 14:10 11/06/22 14:22 Temperature 98.0 F Pulse Rate 84 82 Respiratory Rate 22 H Blood Pressure 130/75 119/66 Pulse Oximetry 99 Oxygen Delivery Oxygen Flow Rate 5 Fraction of Inspired Oxygen 11/06/22 14:30 11/06/22 14:45 11/06/22 15:00 Temperature Pulse Rate 90 80 82 Respiratory Rate Blood Pressure 125/63 125/68 125/64 Pulse Oximetry Oxygen Delivery Oxygen Flow Rate Fraction of Inspired Oxygen 11/06/22 15:15 11/06/22 15:30 11/06/22 15:45 Temperature Pulse Rate 81 82 88 Respiratory Rate Blood Pressure 143/68 H 124/70 141/86 H Pulse Oximetry Oxygen Delivery Oxygen Flow Rate Fraction of Inspired Oxygen 11/06/22 16:00 11/06/22 16:15 11/06/22 16:30 Temperature Pulse Rate 72 69 69 Respiratory Rate Blood Pressure 133/70 129/69 136/78 Pulse Oximetry Oxygen Delivery Oxygen Flow Rate Fraction of Inspired Oxygen 11/06/22 16:45 11/06/22 17:00 11/06/22 17:15 Temperature Pulse Rate 64
--- NOTE | 2022-11-07 09:01 | WPDINTPN ---
Progress Note: A&P Assessment and Plan (1) Acute respiratory failure: Code(s): J96.00 - Acute respiratory failure, unspecified whether with hypoxia or hypercapnia Status: Acute Assessment and Plan: Patient intubated 3/6 in ICU Extubated yesterday after a successful weaning trial Now on nasal cannula Incentive spirometry Up in chair Continue hemodialysis to remove fluid CT chest showed 1. Moderate size right and small left pleural effusions. 2. Moderate atelectasis of the right middle and lower lobes and mild atelectasis of the left lower lobe. 3. Small volume of ascites in the upper abdomen He may need thoracentesis on the right side if does not improve with hemodialysis (2) Bsjxn-de-ofonufx kidney injury: Code(s): N17.9 - Acute kidney failure, unspecified; N18.9 - Chronic kidney disease, unspecified Status: Acute Assessment and Plan: patient has chronic kidney disease and a it seems the patient was temporarily on dialysis last year although I do not have records to confirm that. I am trying to obtain records from [place] and [facility]. I spoke to Dr. Martins from Nephrology. We discussed option of initiating hemodialysis. He recommends waiting at this time considering patient's creatinine is improving and patient also is unstable from cardiac standpoint. He may still need hemodialysis if kidneys to not fully recover or further deteriorate. Treat hyperkalemia as below continue IV fluids with bicarb for acidosis monitor urine output electrolytes and creatinine (3) Hyperkalemia: Code(s): E87.5 - Hyperkalemia Status: Acute Assessment and Plan: Resolved (4) Metabolic acidosis with respiratory acidosis: Code(s): E87.4 - Mixed disorder of acid-base balance Status: Acute Assessment and Plan: Resolved (5) Anasarca: Code(s): R60.1 - Generalized edema Status: Acute Assessment and Plan: Improving with hemodialysis (6) Heart block: Code(s): I45.9 - Conduction disorder, unspecified Status: Acute Assessment and Plan: Status post permanent pacemaker placement (7) Murmur: Code(s): R01.1 - Cardiac murmur, unspecified Status: Acute Assessment and Plan: Echo showed severe to stenosis (8) Shock: Code(s): R57.9 - Shock, unspecified Status: Acute Assessment and Plan: patient was on low-dose dopamine but now shock has resolved (9) Severe aortic stenosis: Code(s): I35.0 - Nonrheumatic aortic (valve) stenosis Status: Acute Assessment and Plan: Echocardiogram shows severe aortic stenosis. Management per Cardiology Plan DVT prophylaxis -heparin Stress ulcer prophylaxis - PPI Nutrition -speech swallowing evaluation Code Status - Full Code Incentive spirometry Up in chair Transfer out of ICU today Subjective Date/time seen: 11/07/22 Patient was extubated yesterday after a successful weaning trial. Is on 2 L nasal cannula. He denies any complaints except that he did not sleep well in the hospital bed. He is hungry and would like to eat food. Paced rhythm on the monitor. All other systems were reviewed and were negative Review of Systems Review of Systems: All systems reviewed & are unremarkable except as noted in HPI and below (Subjective) Exam Narrative: General: WD/WN male awake and in no distress Heart: normal S1 and S2; no rub Lungs: coarse breath sounds Abdomen: soft, nontender, nondistended, positive bowel sounds Extremities: no cyanosis or clubbing; no edema Skin: warm and dry, PPM site C/D/I w/o erythema or drainage : Mendoza in place Skin: Chronic venous status changes on the legs Objective Data Vital Signs Vital Signs: Vital Signs - 24 hr 11/06/22 09:11 11/06/22 09:12 11/06/22 10:00 Temperature Pulse Rate 116 H 117 H 89 Respiratory Rate 31 H Blood Pressure 135/74 Pulse Oximet
--- NOTE | 2022-11-07 09:18 | PCPTNOTE ---
Attempted to see for therapy initial evaluation, per Nurse pt is about to start dialysis. Requested to attempt later.
--- NOTE | 2022-11-07 11:07 | P.PNNP_ITS ---
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 * His volume status is a little bit on the high side. * he is getting dialysis now. will reassess for dialysis on Wednesday. (2) Chronic kidney disease, stage IV (severe): Code(s): N18.4 - Chronic kidney disease, stage 4 (severe) Status: Chronic Assessment and Plan: * on discharge from [facility] Rehab in July 2022, his creatinine was 3.1mg/dl * prior to his hospitalization in May 2022, his creatinine was running 2.3mg/dl * CKD thought to be secondary to HTN, DM, and obesity * given his advanced CKD at baseline, he may need chronic dialysis therapy (3) Hyperkalemia: Code(s): E87.5 - Hyperkalemia Status: Acute Assessment and Plan: * resolved (4) Acute respiratory failure: Code(s): J96.00 - Acute respiratory failure, unspecified whether with hypoxia or hypercapnia Status: Acute Assessment and Plan: * due to volume overload and associated heart block * intubated due to worsening hypoxia and altered mental status * Now extubated. * breathing really well (5) Metabolic acidosis with respiratory acidosis: Code(s): E87.4 - Mixed disorder of acid-base balance Status: Acute Assessment and Plan: * Bicarbonate level is now 30. He is off bicarb supplements. (6) Heart block: Code(s): I45.9 - Conduction disorder, unspecified Status: Acute Assessment and Plan: * as noted by events on admission - variable heart block * s/p transvenous pacemaker (on 11/02/22) * Cardiology following * Echo results noted (7) Shock: Code(s): R57.9 - Shock, unspecified Status: Acute Assessment and Plan: * Blood pressure is doing well. Subjective Date/time seen: 11/07/22 11:07 Interval history: patient feels better. He had a good night. Breathing is good. He is still on oxygen He is on dialysis and tolerating it well. Blood pressure is pretty good. Will take fluid off as tolerated. He was seen at at 10:30 a.m. Exam Narrative: General: WD/WN male intubated and on mechanical ventilation Heart: normal S1 and S2; no rub or gallop Lungs: mildly decreased breath sounds at the bases Abdomen: soft, nontender, nondistended, positive bowel sounds Extremities: 1+ edema Skin: No rash or subQ nodules Objective Data Vital Signs Vital Signs: Vital Signs - 24 hr 11/06/22 12:00 11/06/22 12:00 11/06/22 12:00 Temperature 98 F Pulse Rate 88 88 Respiratory Rate 30 H Blood Pressure 124/67 Pulse Oximetry 94 98 Oxygen Delivery Nasal Cannula Oxygen Flow Rate 4 11/06/22 14:00 11/06/22 14:15 11/06/22 14:10 Temperature 98.0 F Pulse Rate 87 84 Respiratory Rate 18 22 H Blood Pressure 125/64 130/75 Pulse Oximetry 98 99 Oxygen Delivery Oxygen Flow Rate 5
--- NOTE | 2022-11-07 11:07 | PM.PNNEP ---
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 His volume status is a little bit on the high side. he is getting dialysis now. will reassess for dialysis on Wednesday. (2) Chronic kidney disease, stage IV (severe): Code(s): N18.4 - Chronic kidney disease, stage 4 (severe) Status: Chronic Assessment and Plan: on discharge from [facility] Rehab in July 2022, his creatinine was 3.1mg/dl prior to his hospitalization in May 2022, his creatinine was running 2.3mg/dl CKD thought to be secondary to HTN, DM, and obesity given his advanced CKD at baseline, he may need chronic dialysis therapy (3) Hyperkalemia: Code(s): E87.5 - Hyperkalemia Status: Acute Assessment and Plan: resolved (4) Acute respiratory failure: Code(s): J96.00 - Acute respiratory failure, unspecified whether with hypoxia or hypercapnia Status: Acute Assessment and Plan: due to volume overload and associated heart block intubated due to worsening hypoxia and altered mental status Now extubated. breathing really well (5) Metabolic acidosis with respiratory acidosis: Code(s): E87.4 - Mixed disorder of acid-base balance Status: Acute Assessment and Plan: Bicarbonate level is now 30. He is off bicarb supplements. (6) Heart block: Code(s): I45.9 - Conduction disorder, unspecified Status: Acute Assessment and Plan: as noted by events on admission - variable heart block s/p transvenous pacemaker (on 11/02/22) Cardiology following Echo results noted (7) Shock: Code(s): R57.9 - Shock, unspecified Status: Acute Assessment and Plan: Blood pressure is doing well. Subjective Date/time seen: 11/07/22 11:07 Interval history: patient feels better. He had a good night. Breathing is good. He is still on oxygen He is on dialysis and tolerating it well. Blood pressure is pretty good. Will take fluid off as tolerated. He was seen at at 10:30 a.m. Exam Narrative: General: WD/WN male intubated and on mechanical ventilation Heart: normal S1 and S2; no rub or gallop Lungs: mildly decreased breath sounds at the bases Abdomen: soft, nontender, nondistended, positive bowel sounds Extremities: 1+ edema Skin: No rash or subQ nodules Objective Data Vital Signs Vital Signs: Vital Signs - 24 hr 11/06/22 12:00 11/06/22 12:00 11/06/22 12:00 Temperature 98 F Pulse Rate 88 88 Respiratory Rate 30 H Blood Pressure 124/67 Pulse Oximetry 94 98 Oxygen Delivery Nasal Cannula Oxygen Flow Rate 4 11/06/22 14:00 11/06/22 14:15 11/06/22 14:10 Temperature 98.0 F Pulse Rate 87 84 Respiratory Rate 18 22 H Blood Pressure 125/64 130/75 Pulse Oximetry 98 99 Oxygen Delivery Oxygen Flow Rate 5 11/06/22 14:22 11/06/22 14:30 11/06/22 14:45 Temperature Pulse Rate 82 90 80 Respiratory Rate Blood Pressure 119/66 125/63 125/68 Pulse Oximetry Oxygen Delivery Oxygen Flow Rate 11/06/22 15:00 11/06/22 15:15 11/06/22 15:30 Temperature Pulse Rate 82 81 82 Respiratory Rate Blood Pressure 125/64 143/68 H 124/70 Pulse Oximetry Oxygen Delivery Oxygen Flow Rate 11/06/22 15:45 11/06/22 16:00 11/06/22 16:15 Temperature Pulse Rate 88 72 69 Respiratory Rate Blood Pressure 141/86 H 133/70 129/69 Pulse Oximetry Oxygen Delivery Oxygen Flow Rate 11/06/22 16:30 11/06/22 16:45 11/06/22 17:00 Temperature Pulse Rate 69 64 74 Respiratory Rate
[2022-11-07 14:07] LABS: Glucose Point of Care 87 mg/dl (65-105)
--- NOTE | 2022-11-07 14:28 | PCSTNOTE ---
Bedside swallowing evaluation completed. Patient positioned upright in bed. Trials of thin liquid by spoon, cup, and straw were given. Applesauce and canned fruit trials were given by spoon in controlled 3 ml amounts. Patient showed no signs of aspiration. Please note that silent aspiration cannot be ruled out at bedside. Recommendation: minced moist diet (level 5) and thin liquids. Please refer to swallowing precaution recommendations posted in chart. Speech therapy is not recommended for this patient. Thank you for the referral of this patient.
[2022-11-07 15:24] LABS: Chloride Rand Ur 20 mmol/L (32-290); Chloride/Creatinine Rand Ur 20 (23-275); Creatinine Random Urine 100 mg/dL (20-320)
[2022-11-07 18:10] LABS: Glucose Point of Care 139 mg/dl (65-105)
[2022-11-07] MEDS: diphenhydrAMINE HCl CAP 25 MG CAPSULE PO (21:19)
[2022-11-07] MEDS: TOLNAFTATE 1% POWDER 45 GM BTL 1 APPLIC TOPICAL (21:19)
[2022-11-08] VITALS (35 sets, daily range): BP systolic 122–143; BP diastolic 65–76; PULSE 70–87; RESP 18–32; TEMP 36.8–37.2; O2SAT 91–99
[2022-11-08 00:18] LABS: Glucose Point of Care 92 mg/dl (65-105)
[2022-11-08 04:08] LABS: Hepatitis B Core Ab Total Nonreactive (Nonreactive)
[2022-11-08] MEDS: CENTRAL LINE FLUSH 10 ML IV PUSH ×4 (05:27→22:29)
[2022-11-08] MEDS: HEPARIN SODIUM 5,000 UNITS/ML VIAL 5000 UNITS SUB-Q ×3 (05:27→22:29)
[2022-11-08 05:30] LABS: Basophils Percent Auto 0.4 % (0.2-1.2); Eosinophils Absolute Auto 0.3 K/mm3 (0-0.3); Eosinophils Percent Auto 3.7 % (0-4.4); Hemoglobin 12.2 g/dL (14.0-18.0); Immature Granulocyte Absolute 0.03 K/mm3 (0.00-0.031); Immature Granulocyte Percent A 0.4 % (0-0.5); Lymphocytes Absolute Auto 1.15 K/mm3 (0.9-3.2); Lymphocytes Percent Auto 14.5 % (18.3-44.2); Mean Corpuscular HGB Conc 31.3 g/dl (32-36); Mean Corpuscular Volume 96.1 fl (80-100); Mean Platelet Volume 9.6 fl (7.4-10.4); Monocytes Absolute Auto 0.5 K/mm3 (0.1-0.6); Monocytes Percent Auto 6.2 % (2.6-8.5); Neutrophils Absolute Auto 5.9 K/mm3 (1.3-6.7); Neutrophils Percent Auto 74.8 % (45.5-73.1); Platelet Count Result 153 k/mm3 (150-375); Red Blood Count 4.06 M/mm3 (4.6-6.20); Red Cell Distribution Width 14.6 % (11.5-14.5); White Blood Count 7.9 K/mm3 (4.5-10.0)
[2022-11-08 05:39] LABS: Alanine Aminotransferase 14 U/L (6-50); Albumin Level 3.2 g/dL (3.5-5.1); Alkaline Phosphatase 79 U/L (38-126); Anion Gap 6 mmol/L (8-16); Aspartate Amino Transferase 18 U/L (17-59); Bilirubin,Total 0.6 mg/dL (0.2-1.3); Blood Urea Nitrogen 44 mg/dL (9-20); Carbon Dioxide 28 mmol/L (22-30); Chloride 101 mmol/L (98-107); Estimated CRCL calculation 21 ml/min; Estimated Glomerular Filt Rate 13; Glucose 89 mg/dL (65-110); Phosphorus 4.5 mg/dL (2.5-4.5); Potassium 3.7 mmol/L (3.4-5.0); Sodium 135 mmol/L (137-145)
[2022-11-08] MEDS: PANTOPRAZOLE SODIUM IV 40 MG VIAL IV PUSH (09:30)
--- NOTE | 2022-11-08 10:04 | PM.IMPN ---
Progress Note: A&P Assessment and Plan (1) Acute respiratory failure: Code(s): J96.00 - Acute respiratory failure, unspecified whether with hypoxia or hypercapnia Status: Acute (2) Wsvoy-cg-crzmvaf kidney injury: Code(s): N17.9 - Acute kidney failure, unspecified; N18.9 - Chronic kidney disease, unspecified Status: Acute (3) Heart block: Code(s): I45.9 - Conduction disorder, unspecified Status: Acute (4) Severe aortic stenosis: Code(s): I35.0 - Nonrheumatic aortic (valve) stenosis Status: Acute Plan 57-year-old male smoker with hypertension, congestive heart failure, and chronic kidney disease with temporary dialysis last fall who presented to the ED via EMS from home for evaluation of weakness, ended up intubated in the ICU 11/02 started on urgent hemodialysis 11/05 due to fluid overload, extubated 11/06 and status post pacemaker implantation 11/04 due to bradycardia and heart block, continuing to receive dialysis. Echo shows severe , EF 65-70%, diastolic HF, pulm HTN. Continues to have right pleural effusion, thoracentesis attempted 11/04, unable to drain anything due to inadequate fluid pocket. Acute Hypoxic Resp Failure: Extubated 11/06, stable on room air Resolving with HD Incentive spirometer, up to chair May need to attempt thoracentesis again in the future if fluid does not resolve with hemodialysis Bradycardia with heart block: Status post pacemaker, appreciate Cardiology, stable XOCHITL on CKD: Continue hemodialysis per Nephrology, unsure if this will be needed usp or not Petechiael/purpuric scattered macular rash: Appears to be allergic in nature with vasculitic component, appears benign, pruritic in nature, will trial hydroxyzine 12.5 mg during the day, benadryl 25 mg QHS, pepcid, hydrocortisone cream and reassess tomorrow DVT ppx: Lovenox Code:Full Dispo: Moved out of the ICU 11/07, will likely need rehab and HD at d/c Subjective Date/time seen: 11/08/22 10:04 Interval history: No overnight events noted. No chest pain or shortness of breath. No nausea, vomiting or diarrhea. No fevers or chills. Patient developed a rash last evening that was quite itchy, red and started on his back and spread to his thighs and spots on his arms and shoulders. He denies any difficulty swallowing, no EGD or scratchy throat. Review of Systems Review of Systems: 12 point review of systems was assessed and was negative except as noted in the HPI Exam Narrative: General: No acute distress, alert and oriented per baseline HEENT: Atraumatic, normocephalic, mucous membranes moist CV: Regular rate and rhythm, S1, S2 Lungs: Coarse breath sounds throughout, good air entry Abdomen: Soft, nontender, nondistended Extremities: Chronic venous stasis dermatitis Skin: Scattered rash with petechiae, purpura and some elements that melchor while others that do not, spares palms/soles, confluent over lower back, non-indurated/raised, non-TTP, spreads to upper thighs in posterior region, some scattered areas on B/L UE, none on chest, abdomen or anterior thighs/legs/hands or feet Psych: Euthymic, appropriate affect Objective Data Vital Signs Vital Signs: Vital Signs - 24 hr 11/07/22 09:56 11/07/22 09:48 11/07/22 10:00 Temperature 98.4 F Pulse Rate 79 81 Respiratory Rate 22 H Blood Pressure 122/58 L 120/63 Pulse Oximetry 96 Oxygen Delivery Oxygen Flow Rate 2 11/07/22 10:15 11/07/22 10:30 11/07/22 10:45 Temperature Pulse Rate 76 68 76 Respiratory Rate Blood Pressure 116/61 117/60 109/61 Pulse Oximetry Oxygen Delivery Oxygen Flow Rate 11/07/22 11:00 11/07/22 11:15 11/07/22 11:30 Temperature Pulse Rate 74 73 76 Respiratory Rate Blood Pressure 108/59 L 115/56 L 98/56 L Pulse Oximetry Oxygen Delivery Oxygen Flow Rate 11/07/22 11:45 11/07/22 12:00 11/07/22 12:15 Temperature Pulse Rate 73 74 76 Respira
--- NOTE | 2022-11-08 10:27 | P.PNNP_ITS ---
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 * Will try diuretics. * Hoping for some improvement in renal function. * If not we can set him up for temporary dialysis as an outpatient. Hepatitis studies are negative. He would need a PermCath for this. (2) Chronic kidney disease, stage IV (severe): Code(s): N18.4 - Chronic kidney disease, stage 4 (severe) Status: Chronic Assessment and Plan: * on discharge from [facility] Rehab in July 2022, his creatinine was 3.1mg/dl * prior to his hospitalization in May 2022, his creatinine was running 2.3mg/dl * CKD thought to be secondary to HTN, DM, and obesity * given his advanced CKD at baseline, he may need chronic dialysis therapy (3) Hyperkalemia: Code(s): E87.5 - Hyperkalemia Status: Acute Assessment and Plan: * resolved (4) Acute respiratory failure: Code(s): J96.00 - Acute respiratory failure, unspecified whether with hypoxia or hypercapnia Status: Acute Assessment and Plan: * Resolved. Off oxygen. (5) Metabolic acidosis with respiratory acidosis: Code(s): E87.4 - Mixed disorder of acid-base balance Status: Acute Assessment and Plan: * Bicarbonate level is now 28. He is off bicarb supplements. (6) Heart block: Code(s): I45.9 - Conduction disorder, unspecified Status: Acute Assessment and Plan: * as noted by events on admission - variable heart block * s/p transvenous pacemaker (on 11/02/22) * Cardiology following * Echo results noted (7) Shock: Code(s): R57.9 - Shock, unspecified Status: Acute Assessment and Plan: * Blood pressure is doing well. Subjective Date/time seen: 11/08/22 10:27 Interval history: patient feels better. He is off oxygen. Dialysis went well yesterday. Sitting up in a chair hoping for discharge soon. Exam Narrative: General: WD/WN male intubated and on mechanical ventilation Heart: normal S1 and S2; no rub or gallop Lungs: clearer Abdomen: soft, nontender, nondistended, positive bowel sounds Extremities: Trace edema Skin: No rash Objective Data Vital Signs Vital Signs: Vital Signs - 24 hr 11/07/22 09:56 11/07/22 09:48 11/07/22 10:00 Temperature 98.4 F Pulse Rate 79 81 Respiratory Rate 22 H Blood Pressure 122/58 L 120/63 Pulse Oximetry 96 Oxygen Delivery Oxygen Flow Rate 2 11/07/22 10:15 11/07/22 10:30 11/07/22 10:45 Temperature Pulse Rate 76 68 76 Respiratory Rate Blood Pressure 116/61 117/60 109/61 Pulse Oximetry Oxygen Delivery Oxygen Flow Rate 11/07/22 11:00 11/07/22 11:15 11/07/22 11:30 Temperature Pulse Rate 74 73 76 Respiratory Rate Blood Pr
--- NOTE | 2022-11-08 10:27 | PM.PNNEP ---
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 Will try diuretics. Hoping for some improvement in renal function. If not we can set him up for temporary dialysis as an outpatient. Hepatitis studies are negative. He would need a PermCath for this. (2) Chronic kidney disease, stage IV (severe): Code(s): N18.4 - Chronic kidney disease, stage 4 (severe) Status: Chronic Assessment and Plan: on discharge from [facility] Rehab in July 2022, his creatinine was 3.1mg/dl prior to his hospitalization in May 2022, his creatinine was running 2.3mg/dl CKD thought to be secondary to HTN, DM, and obesity given his advanced CKD at baseline, he may need chronic dialysis therapy (3) Hyperkalemia: Code(s): E87.5 - Hyperkalemia Status: Acute Assessment and Plan: resolved (4) Acute respiratory failure: Code(s): J96.00 - Acute respiratory failure, unspecified whether with hypoxia or hypercapnia Status: Acute Assessment and Plan: Resolved. Off oxygen. (5) Metabolic acidosis with respiratory acidosis: Code(s): E87.4 - Mixed disorder of acid-base balance Status: Acute Assessment and Plan: Bicarbonate level is now 28. He is off bicarb supplements. (6) Heart block: Code(s): I45.9 - Conduction disorder, unspecified Status: Acute Assessment and Plan: as noted by events on admission - variable heart block s/p transvenous pacemaker (on 11/02/22) Cardiology following Echo results noted (7) Shock: Code(s): R57.9 - Shock, unspecified Status: Acute Assessment and Plan: Blood pressure is doing well. Subjective Date/time seen: 11/08/22 10:27 Interval history: patient feels better. He is off oxygen. Dialysis went well yesterday. Sitting up in a chair hoping for discharge soon. Exam Narrative: General: WD/WN male intubated and on mechanical ventilation Heart: normal S1 and S2; no rub or gallop Lungs: clearer Abdomen: soft, nontender, nondistended, positive bowel sounds Extremities: Trace edema Skin: No rash Objective Data Vital Signs Vital Signs: Vital Signs - 24 hr 11/07/22 09:56 11/07/22 09:48 11/07/22 10:00 Temperature 98.4 F Pulse Rate 79 81 Respiratory Rate 22 H Blood Pressure 122/58 L 120/63 Pulse Oximetry 96 Oxygen Delivery Oxygen Flow Rate 2 11/07/22 10:15 11/07/22 10:30 11/07/22 10:45 Temperature Pulse Rate 76 68 76 Respiratory Rate Blood Pressure 116/61 117/60 109/61 Pulse Oximetry Oxygen Delivery Oxygen Flow Rate 11/07/22 11:00 11/07/22 11:15 11/07/22 11:30 Temperature Pulse Rate 74 73 76 Respiratory Rate Blood Pressure 108/59 L 115/56 L 98/56 L Pulse Oximetry Oxygen Delivery Oxygen Flow Rate 11/07/22 11:45 11/07/22 12:00 11/07/22 12:15 Temperature Pulse Rate 73 74 76 Respiratory Rate Blood Pressure 106/58 L 106/57 L 102/62 Pulse Oximetry Oxygen Delivery Oxygen Flow Rate 11/07/22 12:30 11/07/22 12:45 11/07/22 13:00 Temperature Pulse Rate 74 73 68 Respiratory Rate Blood Pressure 94/52 L 90/50 L 95/57 L Pulse Oximetry Oxygen Delivery Oxygen Flow Rate 11/07/22 13:15 11/07/22 13:30 11/07/22 12:00 Temperature Pulse Rate 70 76 Respiratory Rate Blood Pressure 96/56 L 100/50 L Pulse Oximetry 98 Oxygen Delivery Nasal Cannula Oxygen Flow Rate 2 11/07/22 10:00 11/07/22 12:00 11/07/22 12:00 Temperature 98.2 F 97.
[2022-11-08 12:40] LABS: Glucose Point of Care 97 mg/dl (65-105)
[2022-11-08] MEDS: BUMETANIDE INJ 2.5 MG/10 ML VIAL 2 MG IV PUSH ×2 (12:52→18:51)
[2022-11-08] MEDS: TOLNAFTATE 1% POWDER 45 GM BTL 1 APPLIC TOPICAL (13:01)
[2022-11-08 16:59] LABS: Glucose Point of Care 108 mg/dl (65-105)
[2022-11-08] MEDS: SACCHAROMYCES BOULARDII 250 MG CAPSULE PO (18:53)
[2022-11-08] MEDS: hydrOXYzine HCL 12.5 MG TABLET PO (18:54)
[2022-11-08] MEDS: diphenhydrAMINE HCl CAP 25 MG CAPSULE PO (20:12)
[2022-11-08] MEDS: HYDROCORTISONE 1% 30 GM CREAM 1 APPLIC TOPICAL (20:12)
[2022-11-08] MEDS: guaiFENesin 600 MG/DEXTROMETHORPHAN 30 MG SR TAB 12 HR 1 TAB PO (20:12)
[2022-11-08] MEDS: FAMOTIDINE 20 MG TABLET PO (20:12)
[2022-11-09] VITALS (11 sets, daily range): BP systolic 115–161; BP diastolic 67–90; PULSE 68–95; RESP 24–28; TEMP 36.4–36.8; O2SAT 92–98
[2022-11-09] MEDS: hydrOXYzine HCL 12.5 MG TABLET PO ×5 (00:23→23:36)
[2022-11-09 00:27] LABS: Glucose Point of Care 109 mg/dl (65-105)
[2022-11-09] MEDS: CENTRAL LINE FLUSH 10 ML IV PUSH ×4 (05:40→21:50)
[2022-11-09] MEDS: HEPARIN SODIUM 5,000 UNITS/ML VIAL 5000 UNITS SUB-Q ×3 (05:41→21:50)
[2022-11-09 05:43] LABS: Basophils Percent Auto 0.4 % (0.2-1.2); Eosinophils Absolute Auto 0.3 K/mm3 (0-0.3); Eosinophils Percent Auto 4.3 % (0-4.4); Hematocrit 38.9 % (42.0-52.0); Hemoglobin 12.2 g/dL (14.0-18.0); Immature Granulocyte Absolute 0.02 K/mm3 (0.00-0.031); Immature Granulocyte Percent A 0.3 % (0-0.5); Lymphocytes Absolute Auto 1.61 K/mm3 (0.9-3.2); Lymphocytes Percent Auto 21.5 % (18.3-44.2); Mean Corpuscular HGB Conc 31.4 g/dl (32-36); Mean Corpuscular Hemoglobin 29.5 pg (26-34); Mean Platelet Volume 9.8 fl (7.4-10.4); Monocytes Absolute Auto 0.4 K/mm3 (0.1-0.6); Monocytes Percent Auto 5.9 % (2.6-8.5); Neutrophils Absolute Auto 5.1 K/mm3 (1.3-6.7); Neutrophils Percent Auto 67.6 % (45.5-73.1); Platelet Count Result 147 k/mm3 (150-375); Red Blood Count 4.14 M/mm3 (4.6-6.20); Red Cell Distribution Width 14.4 % (11.5-14.5); White Blood Count 7.5 K/mm3 (4.5-10.0)
[2022-11-09 05:55] LABS: Alanine Aminotransferase 15 U/L (6-50); Albumin Level 3.3 g/dL (3.5-5.1); Alkaline Phosphatase 80 U/L (38-126); Anion Gap 7 mmol/L (8-16); Aspartate Amino Transferase 18 U/L (17-59); Bilirubin,Total 0.5 mg/dL (0.2-1.3); Blood Urea Nitrogen 52 mg/dL (9-20); Calcium 7.9 mg/dL (8.4-10.2); Carbon Dioxide 29 mmol/L (22-30); Chloride 102 mmol/L (98-107); Estimated CRCL calculation 20 ml/min; Estimated Glomerular Filt Rate 12; Glucose 89 mg/dL (65-110); Phosphorus 3.7 mg/dL (2.5-4.5); Potassium 3.5 mmol/L (3.4-5.0); Sodium 138 mmol/L (137-145)
[2022-11-09] MEDS: guaiFENesin 600 MG/DEXTROMETHORPHAN 30 MG SR TAB 12 HR 1 TAB PO ×2 (08:08→20:19)
[2022-11-09] MEDS: HYDROCORTISONE 1% 30 GM CREAM 1 APPLIC TOPICAL ×2 (08:10→20:19)
[2022-11-09] MEDS: SACCHAROMYCES BOULARDII 250 MG CAPSULE PO ×2 (08:11→16:52)
[2022-11-09] MEDS: PANTOPRAZOLE SODIUM IV 40 MG VIAL IV PUSH (08:11)
[2022-11-09] MEDS: FAMOTIDINE 20 MG TABLET PO ×2 (08:11→20:19)
[2022-11-09] MEDS: BUMETANIDE INJ 2.5 MG/10 ML VIAL 2 MG IV PUSH ×2 (08:11→16:52)
[2022-11-09] MEDS: MINERAL OIL/WHITE PETROLATUM OINTMENT 1 APPLIC EACH EYE (08:12)
[2022-11-09] MEDS: TOLNAFTATE 1% POWDER 45 GM BTL 1 APPLIC TOPICAL (08:12)
--- NOTE | 2022-11-09 09:02 | PM.IMPN ---
Progress Note: A&P Assessment and Plan (1) Acute respiratory failure: Code(s): J96.00 - Acute respiratory failure, unspecified whether with hypoxia or hypercapnia Status: Acute (2) [id number] kidney injury: Code(s): N17.9 - Acute kidney failure, unspecified; N18.9 - Chronic kidney disease, unspecified Status: Acute (3) Heart block: Code(s): I45.9 - Conduction disorder, unspecified Status: Acute (4) Severe aortic stenosis: Code(s): I35.0 - Nonrheumatic aortic (valve) stenosis Status: Acute Plan 57-year-old male smoker with hypertension, congestive heart failure, and chronic kidney disease with temporary dialysis last fall who presented to the ED via EMS from home for evaluation of weakness, ended up intubated in the ICU 11/02 started on urgent hemodialysis 11/05 due to fluid overload, extubated 11/06 and status post pacemaker implantation 11/04 due to bradycardia and heart block, continuing to receive dialysis. Echo shows severe , EF 65-70%, diastolic HF, pulm HTN. Continues to have right pleural effusion, thoracentesis attempted 11/04, unable to drain anything due to inadequate fluid pocket. Acute Hypoxic Resp Failure: Extubated 11/06, stable on room air Resolving with HD Incentive spirometer, up to chair May need to attempt thoracentesis again in the future if fluid does not resolve with hemodialysis Bradycardia with heart block: Status post pacemaker, appreciate Cardiology, stable XOCHITL on CKD: Continue hemodialysis per Nephrology, unsure if this will be needed [facility] or not Petechiael/purpuric scattered macular rash: Appears to be allergic in nature with vasculitic component, appears benign, pruritic, will trial hydroxyzine 12.5 mg, benadryl 25 mg QHS, pepcid, hydrocortisone cream 11/09: rash almost completely resolved DVT ppx: Lovenox Code:Full Dispo: Moved out of the ICU 11/07, PT/OT ok for d/c to home Subjective Date/time seen: 11/09/22 09:02 Interval history: No overnight events noted. No chest pain or shortness of breath. No nausea, vomiting or diarrhea. No fevers or chills. Patient is eager to go home. He is willing to do hemodialysis a few times a week as long as transportation can be arranged. He would like someone to discuss his pacemaker with a more thoroughly as he has a lot of questions. Review of Systems Review of Systems: 12 point review of systems was assessed and was negative except as noted in the HPI Exam Narrative: General: No acute distress, alert and oriented per baseline HEENT: Atraumatic, normocephalic, mucous membranes moist CV: Regular rate and rhythm, S1, S2 Lungs: Coarse breath sounds throughout, good air entry Abdomen: Soft, nontender, nondistended Extremities: Chronic venous stasis dermatitis Skin: Rest significantly improved, some lightly erythematous scattered petechiae noted Psych: Euthymic, appropriate affect Objective Data Vital Signs Vital Signs: Vital Signs - 24 hr 11/08/22 09:12 11/08/22 09:33 11/08/22 09:48 Temperature Pulse Rate 83 76 79 Respiratory Rate 27 H 25 H 27 H Blood Pressure Pulse Oximetry 93 92 91 Oxygen Delivery 11/08/22 10:00 11/08/22 12:00 11/08/22 14:00 Temperature Pulse Rate 70 78 76 Respiratory Rate Blood Pressure Pulse Oximetry Oxygen Delivery 11/08/22 16:00 11/08/22 16:00 11/08/22 11:04 Temperature Pulse Rate 83 70 Respiratory Rate 27 H Blood Pressure Pulse Oximetry 94 92 Oxygen Delivery Room Air 11/08/22 12:43 11/08/22 13:12 11/08/22 13:58 Temperature Pulse Rate 87 82 72 Respiratory Rate 20 22 H 25 H Blood Pressure Pulse Oximetry 94 95 94 Oxygen Delivery 11/08/22 14:38 11/08/22 16:11 11/08/22 16:50 Temperature 98.3 F Pulse Rate 74 78 79 Respiratory Rate 24 H 32 H 22 H Blood Pressure 127/71 Pulse Oximetry 96 94 93 Oxygen Delivery 11/08/22 17:05 11/08/22 20:00 11/08/22 20:00 T
--- NOTE | 2022-11-09 09:24 | PCSTNOTE ---
Repeat Bedside swallow evaluation no required as patient's diet was successfully advanced and no signs of aspiration have been noted.
--- NOTE | 2022-11-09 09:34 | P.PNNP_ITS ---
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 He made a little more urine yesterday. * Creatinine did get a little bit worse this morning. * Check another creatinine tomorrow. If it continues to worsen will switch to a tunneled line and set up for outpatient dialysis. (2) Chronic kidney disease, stage IV (severe): Code(s): N18.4 - Chronic kidney disease, stage 4 (severe) Status: Chronic Assessment and Plan: * on discharge from [facility] in July 2022, his creatinine was 3.1mg/dl * prior to his hospitalization in May 2022, his creatinine was running 2.3mg/dl * CKD thought to be secondary to HTN, DM, and obesity * given his advanced CKD at baseline, he may need chronic dialysis therapy * Will see how his numbers look tomorrow. (3) Hyperkalemia: Code(s): E87.5 - Hyperkalemia Status: Acute Assessment and Plan: * resolved (4) Acute respiratory failure: Code(s): J96.00 - Acute respiratory failure, unspecified whether with hypoxia or hypercapnia Status: Acute Assessment and Plan: * Resolved. Off oxygen. * Check a follow-up chest x-ray (5) Metabolic acidosis with respiratory acidosis: Code(s): E87.4 - Mixed disorder of acid-base balance Status: Acute Assessment and Plan: * Resolved (6) Heart block: Code(s): I45.9 - Conduction disorder, unspecified Status: Acute Assessment and Plan: * as noted by events on admission - variable heart block * s/p transvenous pacemaker (on 11/02/22) * Cardiology following * Echo results noted (7) Shock: Code(s): R57.9 - Shock, unspecified Status: Acute Assessment and Plan: * systolic running 120s to 160s. * Allowing mildly high blood pressures right now because of the XOCHITL * On no blood pressure medications right now. Subjective Date/time seen: 11/09/22 09:34 Interval history: patient feels good. No shortness of breath. Sitting up in a chair. Exam Narrative: General: WD/WN male intubated and on mechanical ventilation Heart: normal S1 and S2; no rub or gallop Lungs: clear bilaterally Abdomen: soft, nontender, nondistended, positive bowel sounds Extremities: Trace edema Skin: No rash or subcu nodules Objective Data Vital Signs Vital Signs: Vital Signs - 24 hr 11/08/22 09:48 11/08/22 10:00 11/08/22 12:00 Temperature Pulse Rate 79 70 78 Respiratory Rate 27 H Blood Pressure Pulse Oximetry 91 Oxygen Delivery 11/08/22 14:00 11/08/22 16:00 11/08/22 16:00 Temperature Pulse Rate 76 83 Respiratory Rate Blood Pressure Pulse Oximetry 94 Oxygen Delivery Room Air 11/08/22 11:04 11/08/22 12:43 11/08/22 13:12 Temperature Pulse Rate 70 87 82 Respiratory Rate
--- NOTE | 2022-11-09 09:34 | PM.PNNEP ---
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 He made a little more urine yesterday. Creatinine did get a little bit worse this morning. Check another creatinine tomorrow. If it continues to worsen will switch to a tunneled line and set up for outpatient dialysis. (2) Chronic kidney disease, stage IV (severe): Code(s): N18.4 - Chronic kidney disease, stage 4 (severe) Status: Chronic Assessment and Plan: on discharge from [facility] in July 2022, his creatinine was 3.1mg/dl prior to his hospitalization in May 2022, his creatinine was running 2.3mg/dl CKD thought to be secondary to HTN, DM, and obesity given his advanced CKD at baseline, he may need chronic dialysis therapy Will see how his numbers look tomorrow. (3) Hyperkalemia: Code(s): E87.5 - Hyperkalemia Status: Acute Assessment and Plan: resolved (4) Acute respiratory failure: Code(s): J96.00 - Acute respiratory failure, unspecified whether with hypoxia or hypercapnia Status: Acute Assessment and Plan: Resolved. Off oxygen. Check a follow-up chest x-ray (5) Metabolic acidosis with respiratory acidosis: Code(s): E87.4 - Mixed disorder of acid-base balance Status: Acute Assessment and Plan: Resolved (6) Heart block: Code(s): I45.9 - Conduction disorder, unspecified Status: Acute Assessment and Plan: as noted by events on admission - variable heart block s/p transvenous pacemaker (on 11/02/22) Cardiology following Echo results noted (7) Shock: Code(s): R57.9 - Shock, unspecified Status: Acute Assessment and Plan: systolic running 120s to 160s. Allowing mildly high blood pressures right now because of the XOCHITL On no blood pressure medications right now. Subjective Date/time seen: 11/09/22 09:34 Interval history: patient feels good. No shortness of breath. Sitting up in a chair. Exam Narrative: General: WD/WN male intubated and on mechanical ventilation Heart: normal S1 and S2; no rub or gallop Lungs: clear bilaterally Abdomen: soft, nontender, nondistended, positive bowel sounds Extremities: Trace edema Skin: No rash or subcu nodules Objective Data Vital Signs Vital Signs: Vital Signs - 24 hr 11/08/22 09:48 11/08/22 10:00 11/08/22 12:00 Temperature Pulse Rate 79 70 78 Respiratory Rate 27 H Blood Pressure Pulse Oximetry 91 Oxygen Delivery 11/08/22 14:00 11/08/22 16:00 11/08/22 16:00 Temperature Pulse Rate 76 83 Respiratory Rate Blood Pressure Pulse Oximetry 94 Oxygen Delivery Room Air 11/08/22 11:04 11/08/22 12:43 11/08/22 13:12 Temperature Pulse Rate 70 87 82 Respiratory Rate 27 H 20 22 H Blood Pressure Pulse Oximetry 92 94 95 Oxygen Delivery 11/08/22 13:58 11/08/22 14:38 11/08/22 16:11 Temperature 98.3 F Pulse Rate 72 74 78 Respiratory Rate 25 H 24 H 32 H Blood Pressure 127/71 Pulse Oximetry 94 96 94 Oxygen Delivery 11/08/22 16:50 11/08/22 17:05 11/08/22 20:00 Temperature Pulse Rate 79 87 Respiratory Rate 22 H 18 Blood Pressure Pulse Oximetry 93 94 Oxygen Delivery Room Air 11/08/22 20:00 11/08/22 20:00 11/09/22 00:00 Temperature 98.9 F 98.3 F Pulse Rate 78 78 80 Respiratory Rate 23 H 26 H Blood Pressure 143/76 H 131/86 Pulse Oximetry 95 94 Oxygen Delivery 11/09/22 00:00 11/09/22 00:00 11/09/22 02:00 Temperature Pulse Rate 80 76 Respiratory Rate Blood Pressu
--- NOTE | 2022-11-09 10:36 | PCFNICU ---
ICU Rounding Note: Pt current nutrition is Regular. Nutrition recommendation: continue with current plan of care. consider a renal diet Last recorded weight is 120 kg - stable. Bowel Motility: +BM 11/09 Labs Reviewed: Hgb:12.2, HCT:38.9, Alb:3.3, BUN:52, CR:4.9 Meds Noted: lovenoz, novolog, bumex Skin: WNL Additional Notes: Pt diet advanced per SUPERINTENDENT PRESSURE. Regular diet, intake 100% all meals. Noted elevated renal labs. Recommend to consider a renal diet. Monitor daily in ICU rounds. Follow up in 5 days.
[2022-11-09 11:38] LABS: Glucose Point of Care 130 mg/dl (65-105)
--- NOTE | 2022-11-09 12:00 | P.CDI_ITS ---
CDI Query Clarified Diagnosis Clarified Diagnosis: Elevated BNP on 11/01/22 lab work. Documented history of CHF. CHF noted on the assessment and plan. Pt receiving IV Bumex. Please specify type and acuity of heart failure if known. * Acute * Chronic * Acute on Chronic * Unknown * Systolic * Diastolic * Combined Systolic and Diastolic * Unknown
--- NOTE | 2022-11-09 12:00 | WPDCDIQUERY2 ---
CDI Query Clarified Diagnosis Clarified Diagnosis: Elevated BNP on 11/01/22 lab work. Documented history of CHF. CHF noted on the assessment and plan. Pt receiving IV Bumex. Please specify type and acuity of heart failure if known. Acute Chronic Acute on Chronic Unknown Systolic Diastolic Combined Systolic and Diastolic Unknown
[2022-11-09 17:02] LABS: Glucose Point of Care 108 mg/dl (65-105)
[2022-11-09 23:42] LABS: Glucose Point of Care 103 mg/dl (65-105)
[2022-11-10] VITALS (7 sets, daily range): BP systolic 113–167; BP diastolic 69–92; PULSE 77–85; RESP 18–26; TEMP 36.6–37.2; O2SAT 96–98
[2022-11-10] MEDS: HEPARIN SODIUM 5,000 UNITS/ML VIAL 5000 UNITS SUB-Q ×3 (05:21→21:09)
[2022-11-10] MEDS: CENTRAL LINE FLUSH 10 ML IV PUSH ×4 (05:21→21:10)
[2022-11-10] MEDS: hydrOXYzine HCL 12.5 MG TABLET PO ×3 (05:21→17:23)
[2022-11-10 05:43] LABS: Basophils Percent Auto 0.5 % (0.2-1.2); Eosinophils Absolute Auto 0.3 K/mm3 (0-0.3); Hematocrit 39.7 % (42.0-52.0); Hemoglobin 12.2 g/dL (14.0-18.0); Immature Granulocyte Absolute 0.03 K/mm3 (0.00-0.031); Immature Granulocyte Percent A 0.3 % (0-0.5); Lymphocytes Absolute Auto 1.53 K/mm3 (0.9-3.2); Lymphocytes Percent Auto 17.5 % (18.3-44.2); Mean Corpuscular HGB Conc 30.7 g/dl (32-36); Mean Corpuscular Hemoglobin 29.4 pg (26-34); Mean Corpuscular Volume 95.7 fl (80-100); Mean Platelet Volume 9.7 fl (7.4-10.4); Monocytes Absolute Auto 0.5 K/mm3 (0.1-0.6); Monocytes Percent Auto 5.5 % (2.6-8.5); Neutrophils Absolute Auto 6.4 K/mm3 (1.3-6.7); Neutrophils Percent Auto 73.2 % (45.5-73.1); Platelet Count Result 148 k/mm3 (150-375); Red Blood Count 4.15 M/mm3 (4.6-6.20); Red Cell Distribution Width 14.3 % (11.5-14.5); White Blood Count 8.7 K/mm3 (4.5-10.0)
[2022-11-10 05:59] LABS: Alanine Aminotransferase 21 U/L (6-50); Albumin Level 3.5 g/dL (3.5-5.1); Alkaline Phosphatase 81 U/L (38-126); Anion Gap 7 mmol/L (8-16); Aspartate Amino Transferase 22 U/L (17-59); Bilirubin,Total 0.5 mg/dL (0.2-1.3); Blood Urea Nitrogen 57 mg/dL (9-20); Calcium 7.8 mg/dL (8.4-10.2); Carbon Dioxide 29 mmol/L (22-30); Chloride 104 mmol/L (98-107); Estimated CRCL calculation 18 ml/min; Estimated Glomerular Filt Rate 11; Glucose 92 mg/dL (65-110); Phosphorus 4.5 mg/dL (2.5-4.5); Potassium 3.8 mmol/L (3.4-5.0); Sodium 140 mmol/L (137-145)
--- NOTE | 2022-11-10 08:52 | P.PNNP_ITS ---
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 He made a little more urine yesterday. * creatinine is a little higher. * Will hold off on dialysis for today. Follow the urine output. * Check another bun/creatinine tomorrow. If not better than will continue d ialysis and plan for discharge. (2) Chronic kidney disease, stage IV (severe): Code(s): N18.4 - Chronic kidney disease, stage 4 (severe) Status: Chronic Assessment and Plan: * on discharge from [facility] in July 2022, his creatinine was 3.1mg/dl * prior to his hospitalization in May 2022, his creatinine was running 2.3mg/dl * CKD thought to be secondary to HTN, DM, and obesity * given his advanced CKD at baseline, he may need chronic dialysis therapy * Will see how his numbers look tomorrow. (3) Hyperkalemia: Code(s): E87.5 - Hyperkalemia Status: Acute Assessment and Plan: * resolved (4) Acute respiratory failure: Code(s): J96.00 - Acute respiratory failure, unspecified whether with hypoxia or hypercapnia Status: Acute Assessment and Plan: * Resolved. Off oxygen. * Chest x-ray improved (5) Metabolic acidosis with respiratory acidosis: Code(s): E87.4 - Mixed disorder of acid-base balance Status: Acute Assessment and Plan: * Resolved (6) Heart block: Code(s): I45.9 - Conduction disorder, unspecified Status: Acute Assessment and Plan: * as noted by events on admission - variable heart block * s/p transvenous pacemaker (on 11/02/22) * Cardiology following * Echo results noted (7) Shock: Code(s): R57.9 - Shock, unspecified Status: Acute Assessment and Plan: * blood pressure has been running in a good range. Subjective Date/time seen: 11/10/22 08:52 Interval history: patient feels good. No shortness of breath. Sitting up in a chair. eating some breakfast. Exam Narrative: General: WD/WN male intubated and on mechanical ventilation Heart: normal S1 and S2; no rub or gallop Lungs: clear Abdomen: soft, nontender, nondistended, positive bowel sounds Extremities: Trace edema And no cyanosis Skin: No rash or subcu nodules Objective Data Vital Signs Vital Signs: Vital Signs - 24 hr 11/10/22 16:00 11/10/22 20:00 11/10/22 21:22 Temperature 99.0 F 97.8 F Pulse Rate 85 85 Respiratory Rate 18 19 Blood Pressure 113/69 140/76 Pulse Oximetry 96 96 Oxygen Delivery Room Air 11/11/22 05:06 11/11/22 08:00 Temperature 99.2 F Pulse Rate 87 83 Respiratory Rate 19 18 Blood Pressure 156/80 H 151/87 H Pulse Oximetry 97 94 Oxygen Delivery Intake/Output Intake/Output: Intake & Output 11/08/22 11/09/22 11/10/22 11/11/22 23:59 23:59 23
--- NOTE | 2022-11-10 08:52 | PM.PNNEP ---
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 He made a little more urine yesterday. creatinine is a little higher. Will hold off on dialysis for today. Follow the urine output. Check another bun/creatinine tomorrow. If not better than will continue dialysis and plan for discharge. (2) Chronic kidney disease, stage IV (severe): Code(s): N18.4 - Chronic kidney disease, stage 4 (severe) Status: Chronic Assessment and Plan: on discharge from [facility] in July 2022, his creatinine was 3.1mg/dl prior to his hospitalization in May 2022, his creatinine was running 2.3mg/dl CKD thought to be secondary to HTN, DM, and obesity given his advanced CKD at baseline, he may need chronic dialysis therapy Will see how his numbers look tomorrow. (3) Hyperkalemia: Code(s): E87.5 - Hyperkalemia Status: Acute Assessment and Plan: resolved (4) Acute respiratory failure: Code(s): J96.00 - Acute respiratory failure, unspecified whether with hypoxia or hypercapnia Status: Acute Assessment and Plan: Resolved. Off oxygen. Chest x-ray improved (5) Metabolic acidosis with respiratory acidosis: Code(s): E87.4 - Mixed disorder of acid-base balance Status: Acute Assessment and Plan: Resolved (6) Heart block: Code(s): I45.9 - Conduction disorder, unspecified Status: Acute Assessment and Plan: as noted by events on admission - variable heart block s/p transvenous pacemaker (on 11/02/22) Cardiology following Echo results noted (7) Shock: Code(s): R57.9 - Shock, unspecified Status: Acute Assessment and Plan: blood pressure has been running in a good range. Subjective Date/time seen: 11/10/22 08:52 Interval history: patient feels good. No shortness of breath. Sitting up in a chair. eating some breakfast. Exam Narrative: General: WD/WN male intubated and on mechanical ventilation Heart: normal S1 and S2; no rub or gallop Lungs: clear Abdomen: soft, nontender, nondistended, positive bowel sounds Extremities: Trace edema And no cyanosis Skin: No rash or subcu nodules Objective Data Vital Signs Vital Signs: Vital Signs - 24 hr 11/10/22 16:00 11/10/22 20:00 11/10/22 21:22 Temperature 99.0 F 97.8 F Pulse Rate 85 85 Respiratory Rate 18 19 Blood Pressure 113/69 140/76 Pulse Oximetry 96 96 Oxygen Delivery Room Air 11/11/22 05:06 11/11/22 08:00 Temperature 99.2 F Pulse Rate 87 83 Respiratory Rate 19 18 Blood Pressure 156/80 H 151/87 H Pulse Oximetry 97 94 Oxygen Delivery Intake/Output Intake/Output: Intake & Output 11/08/22 11/09/22 11/10/22 11/11/22 23:59 23:59 23:59 23:59 Intake Total 840 1090 1000 Output Total 3275 1800 750 Balance -2435 -710 250 Meds/Results Medications: Active Medications Generic Name Dose Route Start Last Admin Trade Name Freq PRN Reason Stop Dose Admin Acetaminophen 650 mg 11/01/22 23:02 Acetaminophen 325 Mg Tablet PO Q6H PRN Mild Pain (1-3) or Fever Dextrose 12.5 gm 11/04/22 20:07 Dextrose 50% 25 Gm/50 Ml Syringe IV PUSH PRN PRN Hypoglycemia Protocol Diphenhydramine HCl 25 mg 11/07/22 20:29 11/07/22 21:19 Diphenhydramine Hcl Cap 25 Mg Capsule PO 25 mg Q6H PRN Administration Itching Famotidine 20 mg 11/08/22 21:00 11/11/22 08:22 Famotidine 20 Mg Tablet PO 20 mg Q12HR ALLY Administration Glucagon 1 mg 11/04/22 20:07 Glucagon
[2022-11-10] MEDS: SACCHAROMYCES BOULARDII 250 MG CAPSULE PO ×2 (08:55→17:23)
[2022-11-10] MEDS: TOLNAFTATE 1% POWDER 45 GM BTL 1 APPLIC TOPICAL ×2 (08:55→21:09)
[2022-11-10] MEDS: PANTOPRAZOLE SODIUM IV 40 MG VIAL IV PUSH (08:55)
[2022-11-10] MEDS: HYDROCORTISONE 1% 30 GM CREAM 1 APPLIC TOPICAL ×2 (08:55→21:09)
[2022-11-10] MEDS: guaiFENesin 600 MG/DEXTROMETHORPHAN 30 MG SR TAB 12 HR 1 TAB PO ×2 (08:55→21:11)
[2022-11-10] MEDS: FAMOTIDINE 20 MG TABLET PO ×2 (08:56→21:11)
--- NOTE | 2022-11-10 20:39 | PM.IMPN ---
Progress Note: A&P Assessment and Plan (1) Acute respiratory failure: Code(s): J96.00 - Acute respiratory failure, unspecified whether with hypoxia or hypercapnia Status: Acute (2) [id number] kidney injury: Code(s): N17.9 - Acute kidney failure, unspecified; N18.9 - Chronic kidney disease, unspecified Status: Acute (3) Heart block: Code(s): I45.9 - Conduction disorder, unspecified Status: Acute (4) Severe aortic stenosis: Code(s): I35.0 - Nonrheumatic aortic (valve) stenosis Status: Acute Plan 57-year-old male smoker with hypertension, congestive heart failure, and chronic kidney disease with temporary dialysis last fall who presented to the ED via EMS from home for evaluation of weakness, ended up intubated in the ICU 11/02 started on urgent hemodialysis 11/05 due to fluid overload, extubated 11/06 and status post pacemaker implantation 11/04 due to bradycardia and heart block, continuing to receive dialysis. Echo shows severe , EF 65-70%, diastolic HF, pulm HTN. Continues to have right pleural effusion, thoracentesis attempted 11/04, unable to drain anything due to inadequate fluid pocket. Acute Hypoxic Resp Failure: Extubated 11/06, stable on room air Resolving with HD Incentive spirometer, up to chair Bradycardia with heart block: Status post pacemaker, appreciate Cardiology, stable XOCHITL on CKD: Continue hemodialysis per Nephrology, unsure if this will be needed [facility] or not Will need HD port placed and monitoring of creatinine outpatient 11/08: Rash: Petechiael/purpuric scattered macular rash developed Appears to be allergic in nature with vasculitic component, appears benign, pruritic, will trial hydroxyzine 12.5 mg, benadryl 25 mg QHS, pepcid, hydrocortisone cream 11/09: rash almost completely resolved 11/10: rash essentially gone, will discontinue Benadryl and make hydroxyzine p.r.n. DVT ppx: Lovenox Code:Full Dispo: Moved out of the ICU 11/07, PT/OT ok for d/c to home when okay with Nephrology Subjective Date/time seen: 11/10/22 20:39 Interval history: No overnight events noted. No chest pain or shortness of breath. No nausea, vomiting or diarrhea. No fevers or chills. Patient is agreeable to getting HD port placed in going home soon. He has no complaints. Review of Systems Review of Systems: 12 point review of systems was assessed and was negative except as noted in the HPI Exam Narrative: General: No acute distress, alert and oriented per baseline HEENT: Atraumatic, normocephalic, mucous membranes moist CV: Regular rate and rhythm, S1, S2 Lungs: Coarse breath sounds throughout, good air entry Abdomen: Soft, nontender, nondistended Extremities: Chronic venous stasis dermatitis Skin: Rash almost essentially resolved Psych: Euthymic, appropriate affect Objective Data Vital Signs Vital Signs: Vital Signs - 24 hr 11/09/22 23:34 11/10/22 00:00 11/10/22 04:00 Temperature Pulse Rate 82 79 Respiratory Rate Blood Pressure Pulse Oximetry 97 Oxygen Delivery Nasal Cannula Oxygen Flow Rate 2 11/10/22 05:00 11/10/22 06:22 11/10/22 08:00 Temperature 98.7 F Pulse Rate 79 77 Respiratory Rate 26 H Blood Pressure 167/92 H 135/82 Pulse Oximetry 98 Oxygen Delivery Oxygen Flow Rate 11/10/22 08:00 11/10/22 08:00 11/10/22 16:00 Temperature 98.4 F 99.0 F Pulse Rate 77 77 85 Respiratory Rate 23 H 23 H 18 Blood Pressure 142/69 H 113/69 Pulse Oximetry 97 97 96 Oxygen Delivery Room Air Oxygen Flow Rate 11/10/22 20:00 Temperature Pulse Rate Respiratory Rate Blood Pressure Pulse Oximetry Oxygen Delivery Room Air Oxygen Flow Rate Intake/Output Intake/Output: Intake & Output 11/07/22 11/08/22 11/09/22 11/10/22 22:59 23:59 23:59 23:59 Intake Total 840 1090 Output Total 3275 1300 Balance -3645 -210 Meds/Results Medications: Active Medications Generic
[2022-11-10] MEDS: LOPERAMIDE HCL 2 MG CAPSULE 4 MG PO (21:09)
[2022-11-11] VITALS (14 sets, daily range): BP systolic 116–156; BP diastolic 56–96; PULSE 75–87; RESP 14–20; TEMP 36–37.3; O2SAT 94–97
[2022-11-11] MEDS: hydrOXYzine HCL 12.5 MG TABLET PO (03:32)
[2022-11-11 03:38] LABS: Basophils Percent Auto 0.4 % (0.2-1.2); Eosinophils Absolute Auto 0.3 K/mm3 (0-0.3); Hematocrit 35.2 % (42.0-52.0); Hemoglobin 11.1 g/dL (14.0-18.0); Immature Granulocyte Absolute 0.04 K/mm3 (0.00-0.031); Immature Granulocyte Percent A 0.4 % (0-0.5); Lymphocytes Absolute Auto 1.75 K/mm3 (0.9-3.2); Lymphocytes Percent Auto 19.3 % (18.3-44.2); Mean Corpuscular HGB Conc 31.5 g/dl (32-36); Mean Corpuscular Hemoglobin 29.2 pg (26-34); Mean Corpuscular Volume 92.6 fl (80-100); Mean Platelet Volume 10.2 fl (7.4-10.4); Monocytes Absolute Auto 0.5 K/mm3 (0.1-0.6); Monocytes Percent Auto 5.3 % (2.6-8.5); Neutrophils Absolute Auto 6.5 K/mm3 (1.3-6.7); Neutrophils Percent Auto 71.6 % (45.5-73.1); Platelet Count Result 143 k/mm3 (150-375); Red Cell Distribution Width 14.6 % (11.5-14.5); White Blood Count 9.1 K/mm3 (4.5-10.0)
[2022-11-11 03:47] LABS: Alanine Aminotransferase 25 U/L (6-50); Albumin Level 3.3 g/dL (3.5-5.1); Alkaline Phosphatase 71 U/L (38-126); Anion Gap 5 mmol/L (8-16); Aspartate Amino Transferase 22 U/L (17-59); Bilirubin,Total 0.5 mg/dL (0.2-1.3); Blood Urea Nitrogen 61 mg/dL (9-20); Calcium 7.7 mg/dL (8.4-10.2); Carbon Dioxide 29 mmol/L (22-30); Chloride 103 mmol/L (98-107); Estimated CRCL calculation 18 ml/min; Estimated Glomerular Filt Rate 11; Glucose 98 mg/dL (65-110); Potassium 3.9 mmol/L (3.4-5.0); Sodium 137 mmol/L (137-145)
[2022-11-11] MEDS: HEPARIN SODIUM 5,000 UNITS/ML VIAL 5000 UNITS SUB-Q ×3 (05:05→20:52)
[2022-11-11] MEDS: CENTRAL LINE FLUSH 10 ML IV PUSH ×4 (05:05→20:53)
[2022-11-11] MEDS: PANTOPRAZOLE SODIUM IV 40 MG VIAL IV PUSH (08:22)
[2022-11-11] MEDS: guaiFENesin 600 MG/DEXTROMETHORPHAN 30 MG SR TAB 12 HR 1 TAB PO ×2 (08:22→20:53)
[2022-11-11] MEDS: FAMOTIDINE 20 MG TABLET PO ×2 (08:22→20:53)
[2022-11-11] MEDS: HYDROCORTISONE 1% 30 GM CREAM 1 APPLIC TOPICAL ×2 (08:23→20:53)
[2022-11-11] MEDS: SACCHAROMYCES BOULARDII 250 MG CAPSULE PO ×2 (08:23→16:38)
[2022-11-11] MEDS: TOLNAFTATE 1% POWDER 45 GM BTL 1 APPLIC TOPICAL ×2 (08:23→20:53)
--- NOTE | 2022-11-11 08:55 | P.PNNP_ITS ---
Progress Note: A&P Assessment and Plan (1) XOCHITL (acute kidney injury): Code(s): N17.9 - Acute kidney failure, unspecified Status: Acute Assessment and Plan: * multifactorial etiology: * prerenal factors * shock * heart block * diuretics [employer] * evaluation to date: * urine electrolytes prerenal * urine eosinophils negative * CPK low * renal ultrasound without obstruction * he is off diuretics. * creatinine is the same but BUN is higher. * I think is going to be a while before he comes off dialysis definitively. Will plan for a PermCath and do dialysis this morning. Then he can discharge. He lives close to [facility] in [place] * long talk with the patient. * He does have chronic kidney disease. He will probably not end up with the same kidney function is he had before all of but hopefully will improve enough to get off dialysis. (2) Chronic kidney disease, stage IV (severe): Code(s): N18.4 - Chronic kidney disease, stage 4 (severe) Status: Chronic Assessment and Plan: * on discharge from [facility] in July 2022, his creatinine was 3.1mg/dl * prior to his hospitalization in May 2022, his creatinine was running 2.3mg/dl * CKD thought to be secondary to HTN, DM, and obesity * given his advanced CKD at baseline, he may need chronic dialysis therapy * Will see how his numbers look tomorrow. (3) Hyperkalemia: Code(s): E87.5 - Hyperkalemia Status: Acute Assessment and Plan: * resolved (4) Acute respiratory failure: Code(s): J96.00 - Acute respiratory failure, unspecified whether with hypoxia or hypercapnia Status: Acute Assessment and Plan: * Resolved. Off oxygen. * Chest x-ray improved (5) Metabolic acidosis with respiratory acidosis: Code(s): E87.4 - Mixed disorder of acid-base balance Status: Acute Assessment and Plan: * Resolved (6) Heart block: Code(s): I45.9 - Conduction disorder, unspecified Status: Acute Assessment and Plan: * as noted by events on admission - variable heart block * s/p transvenous pacemaker (on 11/02/22) * Cardiology following * Echo results noted (7) Shock: Code(s): R57.9 - Shock, unspecified Status: Acute Assessment and Plan: * blood pressure has been running in a good range. Subjective Date/time seen: 11/11/22 08:55 Interval history: patient feels good. eating breakfast. No swelling or shortness of breath eager for discharge Exam Narrative: General: WD/WN male intubated and on mechanical ventilation Heart: normal S1 and S2; no rub or gallop Lungs: clear bilaterally Abdomen: soft, nontender, nondistended, positive bowel sounds Extremities: no edema Skin: No rash or subcu nodules Objective Data Vital Signs Vital Signs: Vital Signs - 24 hr 11/10/22 16:00 11/10/22 20:00 11/10/22 21:22 Temperature 99.0 F 97.8 F Pulse Rate 85 85 Respiratory Rate 18 19 Blood Pressure 113/69 140/76 Pulse Oximetry 96 96 Oxygen Delivery Room Air 11/11/22 05:06 11/11/22 08:00 Temperature 99.2 F Pulse Rate 87 83 Respiratory Rate 19 18 Blood Pressure 156/80 H 151/87 H Pulse Oximetry 97 94
--- NOTE | 2022-11-11 08:55 | PM.PNNEP ---
Progress Note: A&P Assessment and Plan (1) XOCHITL (acute kidney injury): Code(s): N17.9 - Acute kidney failure, unspecified Status: Acute Assessment and Plan: multifactorial etiology: prerenal factors shock heart block diuretics [employer] evaluation to date: urine electrolytes prerenal urine eosinophils negative CPK low renal ultrasound without obstruction he is off diuretics. creatinine is the same but BUN is higher. I think is going to be a while before he comes off dialysis definitively. Will plan for a PermCath and do dialysis this morning. Then he can discharge. He lives close to [facility] in [place] long talk with the patient. He does have chronic kidney disease. He will probably not end up with the same kidney function is he had before all of but hopefully will improve enough to get off dialysis. (2) Chronic kidney disease, stage IV (severe): Code(s): N18.4 - Chronic kidney disease, stage 4 (severe) Status: Chronic Assessment and Plan: on discharge from [facility] in July 2022, his creatinine was 3.1mg/dl prior to his hospitalization in May 2022, his creatinine was running 2.3mg/dl CKD thought to be secondary to HTN, DM, and obesity given his advanced CKD at baseline, he may need chronic dialysis therapy Will see how his numbers look tomorrow. (3) Hyperkalemia: Code(s): E87.5 - Hyperkalemia Status: Acute Assessment and Plan: resolved (4) Acute respiratory failure: Code(s): J96.00 - Acute respiratory failure, unspecified whether with hypoxia or hypercapnia Status: Acute Assessment and Plan: Resolved. Off oxygen. Chest x-ray improved (5) Metabolic acidosis with respiratory acidosis: Code(s): E87.4 - Mixed disorder of acid-base balance Status: Acute Assessment and Plan: Resolved (6) Heart block: Code(s): I45.9 - Conduction disorder, unspecified Status: Acute Assessment and Plan: as noted by events on admission - variable heart block s/p transvenous pacemaker (on 11/02/22) Cardiology following Echo results noted (7) Shock: Code(s): R57.9 - Shock, unspecified Status: Acute Assessment and Plan: blood pressure has been running in a good range. Subjective Date/time seen: 11/11/22 08:55 Interval history: patient feels good. eating breakfast. No swelling or shortness of breath eager for discharge Exam Narrative: General: WD/WN male intubated and on mechanical ventilation Heart: normal S1 and S2; no rub or gallop Lungs: clear bilaterally Abdomen: soft, nontender, nondistended, positive bowel sounds Extremities: no edema Skin: No rash or subcu nodules Objective Data Vital Signs Vital Signs: Vital Signs - 24 hr 11/10/22 16:00 11/10/22 20:00 11/10/22 21:22 Temperature 99.0 F 97.8 F Pulse Rate 85 85 Respiratory Rate 18 19 Blood Pressure 113/69 140/76 Pulse Oximetry 96 96 Oxygen Delivery Room Air 11/11/22 05:06 11/11/22 08:00 Temperature 99.2 F Pulse Rate 87 83 Respiratory Rate 19 18 Blood Pressure 156/80 H 151/87 H Pulse Oximetry 97 94 Oxygen Delivery Intake/Output Intake/Output: Intake & Output 11/08/22 11/09/22 11/10/22 11/11/22 23:59 23:59 23:59 23:59 Intake Total 840 1090 1000 Output Total 3275 1800 750 Balance -2435 -710 250 Meds/Results Medications: Active Medications Generic Name Dose Route Start Last Admin Trade Name Freq PRN Reason Stop Dose Admin Acetaminophen 650 mg 11/01/22 23:02 Acetaminophen 325 Mg Tablet PO Q6H PRN Mild Pain (1-3) or Fever Dextrose 12.5 gm 11/04/22 20:07 Dextrose 50% 25 Gm/50 Ml Syringe IV PUSH PRN PRN Hypoglycemia Protocol Diphenhydramine HCl 25 mg 11/07/22 20:29 11/07/22 21:19 Diphenhydramine Hcl Cap 25 Mg Capsule PO 25 mg
--- NOTE | 2022-11-11 11:30 | PM.CNGS ---
Assessment and Plan Assessment and plan (1) Jpnrq-qm-rmjowtw kidney injury: Code(s): N17.9 - Acute kidney failure, unspecified; N18.9 - Chronic kidney disease, unspecified Status: Acute Assessment and Plan: Presented with acute on chronic kidney failure. Has been receiving hemodialysis through a right IJ temporary catheter. Nephrology expects the patient to continue to need hemodialysis after discharge, and is requesting placement of a tunneled hemodialysis catheter. Discussed the procedure, risks, benefits, and expected outcomes with the patient. Discussed risks of infection, bleeding/hematoma, failure of placement/position, and risk of hemo/pneumothorax. Patient agrees to proceed. Will make the patient NPO after midnight and he has been added to the surgery schedule tomorrow for Permacath placement by Dr. Marcial. (2) Severe aortic stenosis: Code(s): I35.0 - Nonrheumatic aortic (valve) stenosis Status: Acute Assessment and Plan: Noted on echocardiogram from this admission. (3) Heart block: Code(s): I45.9 - Conduction disorder, unspecified Status: Acute Assessment and Plan: S/p permanent pacemaker placed on 11/04/22. (4) Shock: Code(s): R57.9 - Shock, unspecified Status: Acute Assessment and Plan: Resolved. [place] to be cardiogenic. (5) Acute respiratory failure: Code(s): J96.00 - Acute respiratory failure, unspecified whether with hypoxia or hypercapnia Status: Acute Assessment and Plan: Resolved. Now extubated and off oxygen. (6) Obesity (BMI 30-39.9): Code(s): E66.9 - Obesity, unspecified Status: Acute Plan I have discussed the patient's case and plan of care with Dr. Marcial. Thank you for allowing us to see the patient in consultation. History of Present Illness Consult details Consult date: 11/11/22 Reason for consult: other (Placement of tunneled hemodialysis catheter) Requesting physician: Abdirashid Delgado MD Narrative: This is a 57-year-old smoker with multiple medical problems, who was admitted on 11/01/22 for acute on chronic kidney disease, metabolic acidosis, acute respiratory failure, and electrolyte abnormalities. He was admitted to ICU and was intubated on 11/02/22 and has since been extubated on 11/06/22. His hospitalization has been complicated with cardiogenic shock and complete heart block, which he has since had a permanent pacemaker placed on 11/04/22. Echocardiogram on 11/02/22 does show severe aortic stenosis, pulmonary HTN, and moderate TR. Nephrology has been following for his acute on chronic kidney failure. His renal function initially improved, but he eventually was started on hemodialysis on 11/05/22 through a temporary right IJ central venous line. He is still requiring hemodialysis and Nephrology feels that he will still be requiring hemodialysis after discharge. Therefore, they have consulted our service for placement of a Permacath to eventually transition to outpatient dialysis. He is now seen in the ICU as IMU overflow. Review of Systems Review of Systems: All systems reviewed & are unremarkable except as noted in HPI and below PMFSH Past Medical History Medical History Chronic kidney disease Heart failure of unknown type History of pneumothorax Hypertension Restless legs syndrome Tobacco dependence Surgical History Surgical History History of hernia repair Family History Family History Other Heart disease Hypertension Social History Social History Social History: . Surrogate medical decision maker: Dolores Cho, daughter. ( [phone]) Code status: Full code. Smoking packs per day: 0.5 Smoking cigarettes per day: 10.0 Years smoked: 20 Smoking p
--- NOTE | 2022-11-11 13:30 | PM.IMPN ---
Progress Note: A&P Assessment and Plan (1) Acute respiratory failure: Code(s): J96.00 - Acute respiratory failure, unspecified whether with hypoxia or hypercapnia Status: Acute (2) Jlhja-ap-ivhfegr kidney injury: Code(s): N17.9 - Acute kidney failure, unspecified; N18.9 - Chronic kidney disease, unspecified Status: Acute (3) Heart block: Code(s): I45.9 - Conduction disorder, unspecified Status: Acute (4) Severe aortic stenosis: Code(s): I35.0 - Nonrheumatic aortic (valve) stenosis Status: Acute (5) Tobacco dependence: Code(s): F17.200 - Nicotine dependence, unspecified, uncomplicated Status: Acute (6) Hypertension: Code(s): I10 - Essential (primary) hypertension Status: Acute Plan 57-year-old male with HTN, dCHF, and CKD requiring temporary dialysis last fall who presented to the ED via EMS from home for evaluation of weakness. He was intubated in the ICU 11/02. Status post pacemaker implantation 11/04 due to bradycardia and heart block. Started on urgent hemodialysis 11/05 due to fluid overload and able to be extubated 11/06. Echo shows severe , EF 65-70%, diastolic HF, pulmonary HTN. Continues to have right pleural effusion, thoracentesis attempted 11/04, unable to drain anything due to inadequate fluid pocket. Acute Hypoxic Resp Failure: Extubated 11/06, stable on room air Resolving with HD Incentive spirometer, up to chair Bradycardia with heart block: Status post pacemaker, appreciate Cardiology, stable XOCHITL on CKD: Continue hemodialysis per Nephrology Discussed with nephrology who recommended placing tunneled catheter for ouptatient HD 11/08: Rash: Petechiael/purpuric scattered macular rash developed Appears to be allergic in nature with vasculitic component, appears benign, pruritic, will trial hydroxyzine 12.5 mg, benadryl 25 mg QHS, pepcid, hydrocortisone cream Rash essentially gone DVT ppx: Heparin Code:Full Dispo: Moved out of the ICU 11/07, PT/OT ok for d/c to home when okay with Nephrology Subjective Date/time seen: 11/11/22 13:30 Interval history: 57yo male with CKD, HTN and CHF here for weakness and found to have CHB s/p PM placement 11/04/22. Assuming care. Chart reviewed. No problems overnight. No CP or SOB. Tolerated HD well today. Exam Narrative: AF 98.4 128/65 81 14 94% ra Gen - NARD Neck - right IJ HD catheter in place. Chest - clear bilaterally CV - RRR S1/S2 Abd - Soft, NT/ND, Positive BS Ext - No pedal edema Neuro - Alert and appropriate Psych - Nml mood and affect Skin - Warm and dry Objective Data Vital Signs Vital Signs: Vital Signs - 24 hr 11/10/22 16:00 11/10/22 20:00 11/10/22 21:22 Temperature 99.0 F 97.8 F Pulse Rate 85 85 Respiratory Rate 18 19 Blood Pressure 113/69 140/76 Pulse Oximetry 96 96 Oxygen Delivery Room Air 11/11/22 05:06 11/11/22 08:00 11/11/22 09:25 Temperature 99.2 F 98.3 F Pulse Rate 87 83 86 Respiratory Rate 19 18 14 Blood Pressure 156/80 H 151/87 H 124/66 Pulse Oximetry 97 94 Oxygen Delivery 11/11/22 09:37 11/11/22 10:00 11/11/22 10:20 Temperature Pulse Rate 84 85 85 Respiratory Rate Blood Pressure 135/73 116/60 117/56 L Pulse Oximetry Oxygen Delivery 11/11/22 10:40 11/11/22 11:00 11/11/22 11:20 Temperature Pulse Rate 78 75 81 Respiratory Rate Blood Pressure 132/69 130/66 135/57 L Pulse Oximetry Oxygen Delivery 11/11/22 11:40 11/11/22 11:50 11/11/22 08:00 Temperature 98.4 F Pulse Rate 80 81 Respiratory Rate 14 Blood Pressure 132/62 128/65 Pulse Oximetry Oxygen Delivery Room Air Intake/Output Intake/Output: Intake & Output 11/08/22 11/09/22 11/10/22 11/11/22 23:59 23:59 23:59 23:59 Intake Total 840 1090 1240 Output Total 3275 1800 1331 [facility] -[phone] Meds/Results Medications: Active Medications Generic Name Dose Route Start Last Admin Trade Name Omariq DANIELE Bella
[2022-11-12] VITALS (10 sets, daily range): BP systolic 127–161; BP diastolic 68–79; PULSE 71–83; RESP 17–20; TEMP 36.9–37.2; O2SAT 91–100
[2022-11-12 04:03] LABS: Basophils Percent Auto 0.5 % (0.2-1.2); Eosinophils Absolute Auto 0.3 K/mm3 (0-0.3); Eosinophils Percent Auto 3.8 % (0-4.4); Hematocrit 37.2 % (42.0-52.0); Hemoglobin 11.6 g/dL (14.0-18.0); Immature Granulocyte Absolute 0.03 K/mm3 (0.00-0.031); Immature Granulocyte Percent A 0.4 % (0-0.5); Lymphocytes Absolute Auto 1.44 K/mm3 (0.9-3.2); Mean Corpuscular HGB Conc 31.2 g/dl (32-36); Mean Corpuscular Hemoglobin 29.8 pg (26-34); Mean Corpuscular Volume 95.6 fl (80-100); Mean Platelet Volume 9.9 fl (7.4-10.4); Monocytes Absolute Auto 0.5 K/mm3 (0.1-0.6); Monocytes Percent Auto 6.7 % (2.6-8.5); Neutrophils Absolute Auto 5.3 K/mm3 (1.3-6.7); Neutrophils Percent Auto 69.6 % (45.5-73.1); Platelet Count Result 145 k/mm3 (150-375); Red Blood Count 3.89 M/mm3 (4.6-6.20); Red Cell Distribution Width 14.6 % (11.5-14.5); White Blood Count 7.6 K/mm3 (4.5-10.0)
[2022-11-12] MEDS: CENTRAL LINE FLUSH 10 ML IV PUSH (04:20)
[2022-11-12 04:23] LABS: Alanine Aminotransferase 29 U/L (6-50); Albumin Level 3.5 g/dL (3.5-5.1); Alkaline Phosphatase 75 U/L (38-126); Anion Gap 3 mmol/L (8-16); Aspartate Amino Transferase 23 U/L (17-59); Bilirubin,Total 0.5 mg/dL (0.2-1.3); Blood Urea Nitrogen 44 mg/dL (9-20); Calcium 7.9 mg/dL (8.4-10.2); Carbon Dioxide 30 mmol/L (22-30); Chloride 103 mmol/L (98-107); Estimated CRCL calculation 24 ml/min; Estimated Glomerular Filt Rate 16; Glucose 91 mg/dL (65-110); Phosphorus 3.8 mg/dL (2.5-4.5); Potassium 4.1 mmol/L (3.4-5.0); Sodium 136 mmol/L (137-145)
--- NOTE | 2022-11-12 08:49 | PM.IMPN ---
Progress Note: A&P Assessment and Plan (1) Acute respiratory failure: Code(s): J96.00 - Acute respiratory failure, unspecified whether with hypoxia or hypercapnia Status: Acute (2) Dtuug-gu-kbixoow kidney injury: Code(s): N17.9 - Acute kidney failure, unspecified; N18.9 - Chronic kidney disease, unspecified Status: Acute (3) Heart block: Code(s): I45.9 - Conduction disorder, unspecified Status: Acute (4) Severe aortic stenosis: Code(s): I35.0 - Nonrheumatic aortic (valve) stenosis Status: Acute (5) Tobacco dependence: Code(s): F17.200 - Nicotine dependence, unspecified, uncomplicated Status: Acute (6) Hypertension: Code(s): I10 - Essential (primary) hypertension Status: Acute Plan 57-year-old male with HTN, dCHF, and CKD requiring temporary dialysis last fall who presented to the ED via EMS from home for evaluation of weakness. He was intubated in the ICU 11/02. Status post pacemaker implantation 11/04 due to bradycardia and heart block. Started on urgent hemodialysis 11/05 due to fluid overload and able to be extubated 11/06. Echo shows severe , EF 65-70%, diastolic HF, pulmonary HTN. Continues to have right pleural effusion. Thoracentesis attempted 11/04 but unable to drain anything due to inadequate fluid pocket. Acute Hypoxic Resp Failure: Extubated 11/06, stable on room air Resolving with HD Incentive spirometer, up to chair Bradycardia with heart block: Status post pacemaker, appreciate Cardiology, stable XOCHITL on CKD: Continue hemodialysis per Nephrology Plan for tunneled catheter placement today Care coordination to arrange for oupatient HD 11/08: Rash: Pt developed a petechial/purpuric scattered macular rash Appears to be allergic in nature with vasculitic component. Trial hydroxyzine, benadryl, pepcid, hydrocortisone cream Rash resolved DVT ppx: Heparin Code:Full Dispo: Moved out of the ICU 11/07, PT/OT ok for d/c to home when okay with Nephrology Subjective Date/time seen: 11/12/22 08:49 Interval history: 57yo male with CKD, HTN and CHF here for weakness and found to have CHB s/p PM placement 11/04/22. HD port leaked 3x overnight. One time occurred after coughing. Also inadvertently removed peripheral IV. Exam Narrative: AF 98.0 156/78 85 18 96% ra Gen - NARD Neck - right IJ HD catheter in place. Dressing clean and dry Chest - clear bilaterally and in flanks. Left upper chest dressing clean and dry CV - RRR S1/S2 Abd - Soft, NT/ND, Positive BS Ext - No pedal edema Psych - Nml mood and affect Skin - Warm and dry Objective Data Vital Signs Vital Signs: Vital Signs - 24 hr 11/11/22 09:25 11/11/22 09:37 11/11/22 10:00 Temperature 98.3 F Pulse Rate 86 84 85 Respiratory Rate 14 Blood Pressure 124/66 135/73 116/60 Pulse Oximetry Oxygen Delivery 11/11/22 10:20 11/11/22 10:40 11/11/22 11:00 Temperature Pulse Rate 85 78 75 Respiratory Rate Blood Pressure 117/56 L 132/69 130/66 Pulse Oximetry Oxygen Delivery 11/11/22 11:20 11/11/22 11:40 11/11/22 11:50 Temperature 98.4 F Pulse Rate 81 80 81 Respiratory Rate 14 Blood Pressure 135/57 L 132/62 128/65 Pulse Oximetry Oxygen Delivery 11/11/22 16:00 11/11/22 20:00 11/11/22 21:04 Temperature 98.3 F 98.0 F Pulse Rate 85 85 Respiratory Rate 20 18 Blood Pressure 147/96 H 156/78 H Pulse Oximetry 95 97 Oxygen Delivery Room Air 11/11/22 22:23 Temperature Pulse Rate Respiratory Rate Blood Pressure Pulse Oximetry 96 Oxygen Delivery Room Air Intake/Output Intake/Output: Intake & Output 11/09/22 11/10/22 11/11/22 11/12/22 23:59 23:59 23:59 23:59 Intake Total 840 1090 1540 700 Output Total 3275 1800 2081 1250 [facility] -[phone] Meds/Results Medications: Active Medications Generic Name Dose Route Start Last Admin Trade Name Freq PRN Reason Stop Dose Admin Acetaminophen 650 mg 03
--- NOTE | 2022-11-12 10:56 | PC.NURSE ---
Patient traveled to OR with hospital staff at 1015. No complaints at that time, oriented x4, vital signs stable.
--- NOTE | 2022-11-12 11:14 | WPDHPUPDATE1 ---
History and Physical Update Update Date/Time: 11/12/22 11:14 History and Physical has been reviewed, including an updated exam of the patient. There are NO changes in the patient's condition. Risks, benefits, and alternatives have been discussed and questions answered. Patient agrees to proceed with procedure.
[2022-11-12] MEDS: SODIUM CHLORIDE 0.9% IV 500 ML 30 ML IV CONT (12:00)
[2022-11-12] MEDS: HEPARIN SODIUM 1,000 UNITS/ML VIAL 1000 UNITS IV PUSH (12:07)
[2022-11-12] MEDS: HEPARIN SODIUM 5,000 UNITS/ML VIAL 5000 UNITS IV PUSH (12:08)
[2022-11-12] MEDS: LIDO 1%/EPINEPHRINE 1:100,000 50 ML VIAL 10 ML INFILTRATE (12:09)
[2022-11-12] MEDS: BUPivacaine HCL 0.5% 10 ML AMP INFILTRATE (12:11)
--- NOTE | 2022-11-12 12:50 | P.OP_ITS ---
Procedure Note - Detailed Date of Procedure 11/12/22 Pre-op Diagnosis CHB, 2nd degree AV block, CHF, acute renal failure Post-op Diagnosis Same Procedure Performed Placement of right internal jugular vein tunneled hemodialysis catheter. Surgeon Mychal Marcial MD Anesthesia MAC Indications Patient was admitted to the hospital and has acute renal failure with expectation that he will need continued hemodialysis treatment as an outpatient with possible recovery of his kidney function over time. I have been asked to exchange the temporary right internal jugular vein Josué hemodialysis catheter for more durable tunneled hemodialysis catheter. Findings None. Description of Procedure After full consent was obtained the patient was brought to the operating room was placed in supine position and IV sedation was administered per Anesthesia. The bilateral anterior neck and chest was then prepped and draped in usual sterile fashion. The separate non tunneled Josué hemodialysis catheter was prepped sterilely into the field. Time-out was then performed correctly identifying the patient as well as procedure to be performed. He was given Ancef for perioperative IV antibiotics. I then cut the 2 securing sutures to the when catheter. At advanced guidewire through the blue port of the Josué catheter and guide were went down into the superior vena cava. The when catheter was then backed out over the guidewire leaving the guidewire in place. The Nichols catheter was discarded. I then tunneled a Duraflow hemodialysis catheter from the right upper anterior chest up to the prior insertion site of t he Josué catheter on the right anterior lateral neck. At Advanced the largest dilator over the guidewire once more and then a regular a sheath was advanced over the guidewire. The catheter was advanced through the she into the right internal jugular vein thoughts without into the superior vena cava. The sheath was then pulled away leaving the catheter in place. I then secured the catheter in place up with insertion site at the skin with 3-0 nylon sutures. Both ports of the catheter were then aspirated they do but bloody the with good flows and then they were flushed with heparinized saline solution. Intraoperative fluoroscopy was then used to visualize tip of the catheter which was in good position of distal superior vena cava and I did not feel Apple catheter back in the further. The neck incision was then irrigated sterile saline solution then closed with a 4-0 Monocryl suture placed in subcuticular fashion. The catheter was then dressed sterilely. The patient tolerated the procedure well no complications. All sponges, needles, and instrument counts were correct at the end procedure. EBL was _25__cc. The patient was awakened and taken to recovery in stable and satisfactory condition. Postprocedure chest x-ray showed no evidence pneumothorax a good positioning of the catheter in the distal superior vena cava. Implants 26cm tunneled Duraflow hemodialysis catheter right internal jugular vein Estimated Blood Loss 25 (cc's) Urine Output 1,250 Drains No Packing No Pathology None sent Complications No immediate complications Condition Stable Disposition PACU [facility] Billing Surgery - Charge Forward: Surgery Billing
--- NOTE | 2022-11-12 14:03 | PC.NURSE ---
This patient, Chau Cho, was received from [OR ] on 11/12/22 at 1345. Patient/family oriented to unit policies and routines
--- NOTE | 2022-11-12 14:34 | P.PNNP_ITS ---
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 * he is still making some urine. * Will continue dialysis 3 times to weak to optimize his renal value to maximize the chance that his kidneys will open up. Will follow as an outpatient to look for signs of improvement. (2) Chronic kidney disease, stage IV (severe): Code(s): N18.4 - Chronic kidney disease, stage 4 (severe) Status: Chronic Assessment and Plan: * on discharge from [facility] in July 2022, his creatinine was 3.1mg/dl * prior to his hospitalization in May 2022, his creatinine was running 2.3mg/dl * CKD thought to be secondary to HTN, DM, and obesity * Since he has been on dialysis for this long, his baseline creatinine if he recovers may be higher than it was before. (3) Hyperkalemia: Code(s): E87.5 - Hyperkalemia Status: Acute Assessment and Plan: * resolved (4) Acute respiratory failure: Code(s): J96.00 - Acute respiratory failure, unspecified whether with hypoxia or hypercapnia Status: Acute Assessment and Plan: * Resolved. Off oxygen. * Chest x-ray improved (5) Metabolic acidosis with respiratory acidosis: Code(s): E87.4 - Mixed disorder of acid-base balance Status: Acute Assessment and Plan: * Resolved (6) Heart block: Code(s): I45.9 - Conduction disorder, unspecified Status: Acute Assessment and Plan: * as noted by events on admission - variable heart block * s/p transvenous pacemaker (on 11/02/22) * Cardiology following * Echo results noted (7) Shock: Code(s): R57.9 - Shock, unspecified Status: Acute Assessment and Plan: * blood pressure has been running in a good range. Subjective Date/time seen: 11/12/22 14:34 Interval history: patient feels good. lying in bed comfortably. Eating well. Denies shortness of breath tunneled dialysis catheter is in place Exam Narrative: General: WD/WN male intubated and on mechanical ventilation Heart: normal S1 and S2; no rub or gallop Lungs: clear to auscultation Abdomen: soft, nontender, nondistended, positive bowel sounds Extremities: no edema Skin: No rash Objective Data Vital Signs Vital Signs: Vital Signs - 24 hr 11/11/22 16:00 11/11/22 20:00 11/11/22 21:04 Temperature 98.3 F 98.0 F Pulse Rate 85 85 Respiratory Rate 20 18 Blood Pressure 147/96 H 156/78 H Pulse Oximetry 95 97 Oxygen Delivery Room Air Oxygen Flow Rate 11/11/22 22:23 11/12/22 08:00 11/12/22 08:00 Temperature 98.6 F Pulse Rate 83 Respiratory Rate 20 Blood Pressure 142/69 H Pulse Oximetry 96 97 97 Oxygen Delivery Room Air Room Air Oxygen Flow Rate 11/12/22 10:45 11/12/22 12:50 11/12/22 13:05
--- NOTE | 2022-11-12 14:34 | PM.PNNEP ---
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 he is still making some urine. Will continue dialysis 3 times to weak to optimize his renal value to maximize the chance that his kidneys will open up. Will follow as an outpatient to look for signs of improvement. (2) Chronic kidney disease, stage IV (severe): Code(s): N18.4 - Chronic kidney disease, stage 4 (severe) Status: Chronic Assessment and Plan: on discharge from [facility] in July 2022, his creatinine was 3.1mg/dl prior to his hospitalization in May 2022, his creatinine was running 2.3mg/dl CKD thought to be secondary to HTN, DM, and obesity Since he has been on dialysis for this long, his baseline creatinine if he recovers may be higher than it was before. (3) Hyperkalemia: Code(s): E87.5 - Hyperkalemia Status: Acute Assessment and Plan: resolved (4) Acute respiratory failure: Code(s): J96.00 - Acute respiratory failure, unspecified whether with hypoxia or hypercapnia Status: Acute Assessment and Plan: Resolved. Off oxygen. Chest x-ray improved (5) Metabolic acidosis with respiratory acidosis: Code(s): E87.4 - Mixed disorder of acid-base balance Status: Acute Assessment and Plan: Resolved (6) Heart block: Code(s): I45.9 - Conduction disorder, unspecified Status: Acute Assessment and Plan: as noted by events on admission - variable heart block s/p transvenous pacemaker (on 11/02/22) Cardiology following Echo results noted (7) Shock: Code(s): R57.9 - Shock, unspecified Status: Acute Assessment and Plan: blood pressure has been running in a good range. Subjective Date/time seen: 11/12/22 14:34 Interval history: patient feels good. lying in bed comfortably. Eating well. Denies shortness of breath tunneled dialysis catheter is in place Exam Narrative: General: WD/WN male intubated and on mechanical ventilation Heart: normal S1 and S2; no rub or gallop Lungs: clear to auscultation Abdomen: soft, nontender, nondistended, positive bowel sounds Extremities: no edema Skin: No rash Objective Data Vital Signs Vital Signs: Vital Signs - 24 hr 11/11/22 16:00 11/11/22 20:00 11/11/22 21:04 Temperature 98.3 F 98.0 F Pulse Rate 85 85 Respiratory Rate 20 18 Blood Pressure 147/96 H 156/78 H Pulse Oximetry 95 97 Oxygen Delivery Room Air Oxygen Flow Rate 11/11/22 22:23 11/12/22 08:00 11/12/22 08:00 Temperature 98.6 F Pulse Rate 83 Respiratory Rate 20 Blood Pressure 142/69 H Pulse Oximetry 96 97 97 Oxygen Delivery Room Air Room Air Oxygen Flow Rate 11/12/22 10:45 11/12/22 12:50 11/12/22 13:05 Temperature 98.5 F 98.6 F Pulse Rate 77 76 74 Respiratory Rate 17 20 Blood Pressure 161/77 H 130/69 134/75 Pulse Oximetry 95 98 100 Oxygen Delivery Room Air Simple Face Mask Simple Face Mask Oxygen Flow Rate 8 10 11/12/22 13:20 11/12/22 13:35 11/12/22 14:02 Temperature 98.9 F Pulse Rate 76 75 77 Respiratory Rate 20 17 20 Blood Pressure 134/68 131/70 137/70 Pulse Oximetry 94 95 91 Oxygen Delivery Room Air Room Air Oxygen Flow Rate Intake/Output Intake/Output: Intake & Output 11/09/22 11/10/22 11/11/22 11/12/22 23:59 23:59 23:59 23:59 Intake Total 840 1090 1540 1000 Output Total 3275 1800 3161 2500 [facility] -[phone] -1500 Meds/Results Medications: Active Medications Generic Name Dose Route Start Last Admin Trade Name
[2022-11-12] MEDS: ACETAMINOPHEN 325 MG TABLET 650 MG PO (15:54)
[2022-11-12] MEDS: HEPARIN SODIUM 5,000 UNITS/ML VIAL 5000 UNITS SUB-Q (15:55)
[2022-11-12] MEDS: SACCHAROMYCES BOULARDII 250 MG CAPSULE PO (15:55)
[2022-11-12] MEDS: TOLNAFTATE 1% POWDER 45 GM BTL 1 APPLIC TOPICAL ×2 (15:56→20:46)
[2022-11-12] MEDS: HYDROCORTISONE 1% 30 GM CREAM 1 APPLIC TOPICAL (20:46)
[2022-11-12] MEDS: guaiFENesin 600 MG/DEXTROMETHORPHAN 30 MG SR TAB 12 HR 1 TAB PO (20:46)
[2022-11-12] MEDS: FAMOTIDINE 20 MG TABLET PO (20:46)
[2022-11-13] VITALS (12 sets, daily range): BP systolic 145–206; BP diastolic 80–125; PULSE 1–98; RESP 14–20; TEMP 35.9–37; O2SAT 93–94
[2022-11-13 05:11] LABS: Basophils Percent Auto 0.4 % (0.2-1.2); Eosinophils Absolute Auto 0.3 K/mm3 (0-0.3); Eosinophils Percent Auto 4.6 % (0-4.4); Hematocrit 35.4 % (42.0-52.0); Immature Granulocyte Absolute 0.03 K/mm3 (0.00-0.031); Immature Granulocyte Percent A 0.4 % (0-0.5); Lymphocytes Absolute Auto 1.31 K/mm3 (0.9-3.2); Lymphocytes Percent Auto 18.9 % (18.3-44.2); Mean Corpuscular HGB Conc 31.1 g/dl (32-36); Mean Corpuscular Hemoglobin 28.8 pg (26-34); Mean Corpuscular Volume 92.7 fl (80-100); Mean Platelet Volume 10.3 fl (7.4-10.4); Monocytes Absolute Auto 0.5 K/mm3 (0.1-0.6); Monocytes Percent Auto 7.4 % (2.6-8.5); Neutrophils Absolute Auto 4.7 K/mm3 (1.3-6.7); Neutrophils Percent Auto 68.3 % (45.5-73.1); Platelet Count Result 139 k/mm3 (150-375); Red Blood Count 3.82 M/mm3 (4.6-6.20); Red Cell Distribution Width 14.7 % (11.5-14.5); White Blood Count 6.9 K/mm3 (4.5-10.0)
[2022-11-13 05:36] LABS: Alanine Aminotransferase 24 U/L (6-50); Albumin Level 3.4 g/dL (3.5-5.1); Alkaline Phosphatase 74 U/L (38-126); Anion Gap 7 mmol/L (8-16); Aspartate Amino Transferase 27 U/L (17-59); Bilirubin,Total 0.5 mg/dL (0.2-1.3); Blood Urea Nitrogen 45 mg/dL (9-20); Calcium 7.9 mg/dL (8.4-10.2); Carbon Dioxide 28 mmol/L (22-30); Chloride 106 mmol/L (98-107); Estimated CRCL calculation 23 ml/min; Estimated Glomerular Filt Rate 15; Glucose 88 mg/dL (65-110); Phosphorus 4.1 mg/dL (2.5-4.5); Potassium 4.3 mmol/L (3.4-5.0); Sodium 141 mmol/L (137-145)
[2022-11-13] MEDS: ACETAMINOPHEN 325 MG TABLET 650 MG PO (06:06)
[2022-11-13] MEDS: LIPASE/AMYLASE/PROTEASE 12,000 UNITS CAP 1 CAP PO ×2 (08:01→11:31)
[2022-11-13] MEDS: HYDROCORTISONE 1% 30 GM CREAM 1 APPLIC TOPICAL (08:01)
[2022-11-13] MEDS: FAMOTIDINE 20 MG TABLET PO (08:02)
[2022-11-13] MEDS: guaiFENesin 600 MG/DEXTROMETHORPHAN 30 MG SR TAB 12 HR 1 TAB PO (08:02)
[2022-11-13] MEDS: SACCHAROMYCES BOULARDII 250 MG CAPSULE PO (08:03)
[2022-11-13] MEDS: TOLNAFTATE 1% POWDER 45 GM BTL 1 APPLIC TOPICAL (08:03)
--- NOTE | 2022-11-13 09:01 | P.PNNP_ITS ---
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 * BUN creatinine are a little higher today. * We discussed that he will be followed for his XOCHITL as an outpatient * he is still making some urine. (2) Chronic kidney disease, stage IV (severe): Code(s): N18.4 - Chronic kidney disease, stage 4 (severe) Status: Chronic Assessment and Plan: * on discharge from [facility] in July 2022, his creatinine was 3.1mg/dl * prior to his hospitalization in May 2022, his creatinine was running 2.3mg/dl * CKD thought to be secondary to HTN, DM, and obesity * Since he has been on dialysis for this long, his baseline creatinine if he recovers may be higher than it was before. (3) Hyperkalemia: Code(s): E87.5 - Hyperkalemia Status: Acute Assessment and Plan: * resolved (4) Acute respiratory failure: Code(s): J96.00 - Acute respiratory failure, unspecified whether with hypoxia or hypercapnia Status: Acute Assessment and Plan: * Resolved. Off oxygen. * Chest x-ray improved. (5) Metabolic acidosis with respiratory acidosis: Code(s): E87.4 - Mixed disorder of acid-base balance Status: Acute Assessment and Plan: * Resolved (6) Heart block: Code(s): I45.9 - Conduction disorder, unspecified Status: Acute Assessment and Plan: * as noted by events on admission - variable heart block * s/p transvenous pacemaker (on 11/02/22) * Cardiology following * Echo results noted (7) Shock: Code(s): R57.9 - Shock, unspecified Status: Acute Assessment and Plan: * blood pressure has been running in a good range. Subjective Date/time seen: 11/13/22 09:01 Interval history: patient feels good. Sitting up in a chair. Eager for discharge Exam Narrative: General: WD/WN male intubated and on mechanical ventilation Heart: normal S1 and S2; no rub or gallop Lungs: clear to auscultation Abdomen: soft, nontender, nondistended, positive bowel sounds Extremities: no edema or cyanosis Skin: No rash or subQ nodules Objective Data Vital Signs Vital Signs: Vital Signs - 24 hr 11/12/22 10:45 11/12/22 12:50 11/12/22 13:05 Temperature 98.5 F 98.6 F Pulse Rate 77 76 74 Respiratory Rate 17 20 Blood Pressure 161/77 H 130/69 134/75 Pulse Oximetry 95 98 100 Oxygen Delivery Room Air Simple Face Mask Simple Face Mask Oxygen Flow Rate 8 10 11/12/22 13:20 11/12/22 13:35 11/12/22 14:02 Temperature 98.9 F Pulse Rate 76 75 77 Respiratory Rate 20 17 20 Blood Pressure 134/68 131/70 137/70 Pulse Oximetry 94 95 91 Oxygen Delivery Room Air Room Air Oxygen Flow Rate 11/12/22 16:00 11/12/22 20:00 11/12/22 23:04 Temperature Pulse Rate 81 83 71 Respiratory R
--- NOTE | 2022-11-13 09:01 | PM.PNNEP ---
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 BUN creatinine are a little higher today. We discussed that he will be followed for his XOCHITL as an outpatient he is still making some urine. (2) Chronic kidney disease, stage IV (severe): Code(s): N18.4 - Chronic kidney disease, stage 4 (severe) Status: Chronic Assessment and Plan: on discharge from [facility] in July 2022, his creatinine was 3.1mg/dl prior to his hospitalization in May 2022, his creatinine was running 2.3mg/dl CKD thought to be secondary to HTN, DM, and obesity Since he has been on dialysis for this long, his baseline creatinine if he recovers may be higher than it was before. (3) Hyperkalemia: Code(s): E87.5 - Hyperkalemia Status: Acute Assessment and Plan: resolved (4) Acute respiratory failure: Code(s): J96.00 - Acute respiratory failure, unspecified whether with hypoxia or hypercapnia Status: Acute Assessment and Plan: Resolved. Off oxygen. Chest x-ray improved. (5) Metabolic acidosis with respiratory acidosis: Code(s): E87.4 - Mixed disorder of acid-base balance Status: Acute Assessment and Plan: Resolved (6) Heart block: Code(s): I45.9 - Conduction disorder, unspecified Status: Acute Assessment and Plan: as noted by events on admission - variable heart block s/p transvenous pacemaker (on 11/02/22) Cardiology following Echo results noted (7) Shock: Code(s): R57.9 - Shock, unspecified Status: Acute Assessment and Plan: blood pressure has been running in a good range. Subjective Date/time seen: 11/13/22 09:01 Interval history: patient feels good. Sitting up in a chair. Eager for discharge Exam Narrative: General: WD/WN male intubated and on mechanical ventilation Heart: normal S1 and S2; no rub or gallop Lungs: clear to auscultation Abdomen: soft, nontender, nondistended, positive bowel sounds Extremities: no edema or cyanosis Skin: No rash or subQ nodules Objective Data Vital Signs Vital Signs: Vital Signs - 24 hr 11/12/22 10:45 11/12/22 12:50 11/12/22 13:05 Temperature 98.5 F 98.6 F Pulse Rate 77 76 74 Respiratory Rate 17 20 Blood Pressure 161/77 H 130/69 134/75 Pulse Oximetry 95 98 100 Oxygen Delivery Room Air Simple Face Mask Simple Face Mask Oxygen Flow Rate 8 10 11/12/22 13:20 11/12/22 13:35 11/12/22 14:02 Temperature 98.9 F Pulse Rate 76 75 77 Respiratory Rate 20 17 20 Blood Pressure 134/68 131/70 137/70 Pulse Oximetry 94 95 91 Oxygen Delivery Room Air Room Air Oxygen Flow Rate 11/12/22 16:00 11/12/22 20:00 11/12/22 23:04 Temperature Pulse Rate 81 83 71 Respiratory Rate 20 19 18 Blood Pressure 127/69 145/79 H Pulse Oximetry 95 96 97 Oxygen Delivery Room Air Oxygen Flow Rate 11/13/22 08:00 Temperature 98.1 F Pulse Rate 86 Respiratory Rate 20 Blood Pressure 159/80 H Pulse Oximetry 93 Oxygen Delivery Oxygen Flow Rate Intake/Output Intake/Output: Intake & Output 11/10/22 11/11/22 11/12/22 11/13/22 23:59 23:59 23:59 23:59 Intake Total 1090 1540 1500 Output Total 1800 2081 3307 1300 Balance -710 -541 -1000 -1300 Meds/Results Medications: Active Medications Generic Name Dose Route Start Last Admin Trade Name Temo PRN Reason Stop Dose Admin Acetaminophen 650 mg 11/01/22 23:02 11/13/22 06:06 Acetaminophen 325 Mg Tablet PO 650 mg Q6H PRN Administration Mild Pain (1-3) or Fever Hydrocodon
--- NOTE | 2022-11-13 10:54 | PCNFU ---
Nutrition Follow-Up Complete: Inadequate Oral Intake as related to mechanical ventilation as evidenced by NPO goal: Meet estimated nutritional needs Patient is meeting current goal. No new goal. Pt current nutrition is 2 gm Na. Nutrition recommendation: Renal Dialysis diet Last recorded weight is 108.2 kg. Bowel Motility:+Bm reported 11/12 Labs Reviewed:Cr 4.10,BUN 45, GFR 15, Alb 3.4,Hct 35.4,Hgb 11.0 Meds Noted:Florastor, Pepcid, Mucinex Skin:WNL Additional Notes: Patient tolerating 2 gm Na diet with 100% of meals. Dialysis catheter placement 11/12. Plans for outpatient Dialysis. Will monitor every 7 days.
--- NOTE | 2022-11-13 13:38 | PC.NURSE ---
Patient to dialysis room 308.
--- NOTE | 2022-11-13 13:42 | P.PNAN_ITS ---
Anes - Prog Note Post-Op Date/Time: 11/13/22 13:42 Cardiovascular status: normal Respiratory status: normal Airway patency: baseline Mental status: baseline Post-Op hydration status: normal Vital Signs: Last Vital Signs Temp 98.1 F 11/13/22 08:00 Pulse 86 11/13/22 08:00 Resp 20 11/13/22 08:00 BP 159/80 H 11/13/22 08:00 Pulse Ox 93 11/13/22 08:00 O2 Del Method Room Air 11/13/22 08:00 O2 Flow Rate 10 11/12/22 13:05 FiO2 40 11/06/22 08:35 Pain Score (VAS): 0/10 I/O: Intake & Output 11/12/22 11/13/22 11/13/22 23:59 07:59 15:59 Intake Total 500 450 Output Total 1300 Balance 500 -1300 450 Laboratory Tests 11/13/22 04:57 11/13/22 04:57 11/13/22 11/13/22 04:57 04:57 WBC 6.9 RBC 3.82 L Hgb 11.0 L Hct 35.4 L MCV 92.7 MCH 28.8 MCHC 31.1 L RDW 14.7 H Plt Count 139 L MPV 10.3 Immature Gran % (Auto) 0.4 Neut % (Auto) 68.3 Lymph % (Auto) 18.9 [place] % (Auto) 7.4 Eos % (Auto) 4.6 H Baso % (Auto) 0.4 Lymph # (Auto) 1.31 [place] # (Auto) 0.5 Eos # (Auto) 0.3 Baso # (Auto) 0.0 Abs Immat Gran (auto) 0.03 Absolute Neuts (auto) 4.7 Absolute Nucleated RBC 0.0 Nucleated RBC % 0.0 Sodium 141 Potassium 4.3 Chloride 106 Carbon Dioxide 28 Anion Gap 7 L BUN 45 H Creatinine 4.10 H Estim Creat Clear Calc 23 Estimated GFR 15 L Glucose 88 Calcium 7.9 L Phosphorus 4.1 Total Bilirubin 0.5 AST 27 ALT 24 Alkaline Phosphatase 74 Total Protein 6.0 L Albumin 3.4 L Post-procedural complaints: none Patient Feedback: Patient satisfied with anesthetic care.
--- NOTE | 2022-11-13 15:19 | PM.DS ---
DS: Admitting Diagnosis Discharge Date 11/13/22 Admitting Diagnosis Weakness DS: Discharge Diagnosis Discharge Diagnosis (1) Acute respiratory failure: Code(s): J96.00 - Acute respiratory failure, unspecified whether with hypoxia or hypercapnia Status: Acute (2) Kjoti-bp-kjucgod kidney injury: Code(s): N17.9 - Acute kidney failure, unspecified; N18.9 - Chronic kidney disease, unspecified Status: Acute (3) Heart block: Code(s): I45.9 - Conduction disorder, unspecified Status: Acute (4) Severe aortic stenosis: Code(s): I35.0 - Nonrheumatic aortic (valve) stenosis Status: Acute (5) Tobacco dependence: Code(s): F17.200 - Nicotine dependence, unspecified, uncomplicated Status: Acute (6) Hypertension: Code(s): I10 - Essential (primary) hypertension Status: Acute DS: Summary Hospital Course Reason for hospitalization: 57yo male with CKD, HTN and CHF here for weakness and found to have CHB s/p PM placement 11/04/22. Please see H&P for details. Hospital Course: 57-year-old male with HTN, dCHF, and CKD requiring temporary dialysis last fall who presented to the ED via EMS from home for evaluation of weakness. He was intubated in the ICU 11/02 for acute hypoxic respiratory failure related to fluid overload. Status post pacemaker implantation 11/04 due to bradycardia and heart block. Started on urgent hemodialysis 11/05 due to fluid overload and able to be extubated 11/06. Echo shows severe , EF 65-70%, diastolic HF, pulmonary HTN. Continues to have right pleural effusion. Thoracentesis attempted 11/04 but unable to drain anything due to inadequate fluid pocket. He underwent tunneled catheter placement 11/12. He was continued on HD and tolerted this well. He has HD arranged as outpatient. He was having loose stools that was present on admission but not felt to be CDiff. Normal WBC. He overall did well and was able to be discharged home on 11/13/22. He has been up walking in the room. Status at Discharge Cognitive/behavioral status at discharge: Stable Time Spent with Patient Time attestation: Total time spent providing and/or coordinating discharge services: 32 minutes Time spent: Less than 30 minutes Exam Narrative: AF 98.0 145/87 85 14 93% ra Gen - NARD Neck - tunneled right IJ HD catheter in place. Dressing clean and dry Chest - lungs clear anteriorly. Left upper chest incision clean and dry CV - RRR S1/S2 Abd - Soft, NT/ND, Positive BS Ext - No pedal edema Psych - Nml mood and affect Skin - Warm and dry DS: Data Data Completed and Pending Labs on day of discharge: Labs from last 24 hours 11/13/22 11/13/22 04:57 04:57 WBC 6.9 RBC 3.82 L Hgb 11.0 L Hct 35.4 L MCV 92.7 MCH 28.8 MCHC 31.1 L RDW 14.7 H Plt Count 139 L MPV 10.3 Immature Gran % (Auto) 0.4 Neut % (Auto) 68.3 Lymph % (Auto) 18.9 [place] % (Auto) 7.4 Eos % (Auto) 4.6 H Baso % (Auto) 0.4 Lymph # (Auto) 1.31 [place] # (Auto) 0.5 Eos # (Auto) 0.3 Baso # (Auto) 0.0 Abs Immat Gran (auto) 0.03 Absolute Neuts (auto) 4.7 Absolute Nucleated RBC 0.0 Nucleated RBC % 0.0 Sodium 141 Potassium 4.3 Chloride 106 Carbon Dioxide 28 Anion Gap 7 L BUN 45 H Creatinine 4.10 H Estim Creat Clear Calc 23 Estimated GFR 15 L Glucose 88 Calcium 7.9 L Phosphorus 4.1 Total Bilirubin 0.5 AST 27 ALT 24 Alkaline Phosphatase 74 Total Protein 6.0 L Albumin 3.4 L Discharge Plan Discharge Attending physician on discharge: Praveen Vazquez Consulting providers: Steven Ramos ; Bryan Santana ; Lauro Mcduffie ; Mychal Marcial Discharging Clinician: Praveen Vazquez Anticipated Discharge Date/Time: 11/13/22 15:26 Patient Disposition: Home, Self-Care Activity: as tolerated Diet: low sodium and high fiber Discharge Instructions:
--- NOTE | 2022-11-13 16:30 | PC.NURSE ---
Patient back from dialysis
== END 2022-11-13 16:45 | disposition home or self-care (01) | DRG 242 ==
LOC: ANHED 18:45 → ANHICU 20:06
PROVIDERS: Internal Medicine; Internal Medicine Cardiovascular Disease; Internal Medicine Critical Care Medicine; Internal Medicine Nephrology; Physician Assistant; Student in an Organized Health Care Education/Training Program; Surgery; Admitting Provider Hospitalist; Emergency Provider Emergency Medicine; Visit Provider Internal Medicine
PROC: 5A1223Z Performance of Cardiac Pacing, Continuous (ICD-10-PCS; CPT 33210; principal; 2022-11-02 09:30)
PROC: 0JH606Z Insertion of Pacemaker, Dual Chamber into Chest Subcutaneous Tissue and Fascia, Open Approach (ICD-10-PCS; CPT 33208; principal; 2022-11-04 14:00)
PROC: 0JH63XZ Insertion of Tunneled Vascular Access Device into Chest Subcutaneous Tissue and Fascia, Percutaneous Approach (ICD-10-PCS; CPT 36908; principal; 2022-11-12 11:30)
DX: I44.2 Atrioventricular block, complete (principal); J96.01 Acute respiratory failure with hypoxia; E87.4 Mixed disorder of acid-base balance; N17.9 Acute kidney failure, unspecified; I13.0 Hypertensive heart and chronic kidney disease with heart failure and stage 1 through stage 4 chronic kidney disease, or unspecified chronic kidney disease; N18.4 Chronic kidney disease, stage 4 (severe); R57.9 Shock, unspecified; I50.30 Unspecified diastolic (congestive) heart failure; I45.9 Conduction disorder, unspecified; I27.20 Pulmonary hypertension, unspecified; E87.5 Hyperkalemia; F17.210 Nicotine dependence, cigarettes, uncomplicated
CPT/HCPCS: 31500; 33208; 33210; 36415; 36600; 71045; 71046; 71250; 76705; 76775; 77001; 80048; 80053; 80074; 80076; 81001; 81050; 82375; 82436; 82550; 82570; 82805; 82948; 83050; 83605; 83735; 83880; 84100; 84155; 84156; 84165; 84166; 84300; 84443; 84484; 84540; 85025; 85027; 85380; 85610; 85730; 85999; 86704; 86706; 86850; 86900; 86901; 87040; 87077; 87086; 87088; 87186; 87340; 92610; 93005; 93306; 93970; 94002; 94003; 96374; 97161; 97165; 99285; A9270; C1750; C1752; C1779; C1785; C1883; C1894; C9113; G0257; J0610; J1200; J1265; J1644; J1650; J1815; J2250; J2405; J2704; J3010; J3370; J7030; J7040; Q9957

== ENCOUNTER 2023-01-08 10:51 | Outpatient (CLI) | payer MEDICARE, MEDICAID, SELFPAY ==
[2023-01-08 11:32] LABS: Anion Gap 9 mmol/L (8-16); Blood Urea Nitrogen 36 mg/dL (9-20); Calcium 8.3 mg/dL (8.4-10.2); Carbon Dioxide 24 mmol/L (22-30); Chloride 104 mmol/L (98-107); Estimated Glomerular Filt Rate 18; Glucose 98 mg/dL (65-110); Potassium 5.4 mmol/L (3.4-5.0); Sodium 137 mmol/L (137-145)
[2023-01-08 11:33] LABS: Albumin Level 4.1 g/dL (3.5-5.1); Phosphorus 4.5 mg/dL (2.5-4.5)
== END 2023-01-08 10:52 | disposition home or self-care (01) ==
DX: N17.9 Acute kidney failure, unspecified (principal)
CPT/HCPCS: 36415; 80069

== ENCOUNTER 2023-01-12 11:19 | Outpatient (CLI) | payer MEDICARE, MEDICAID, SELFPAY ==
[2023-01-12 11:59] LABS: Albumin Level 4.1 g/dL (3.5-5.1); Anion Gap 8 mmol/L (8-16); Blood Urea Nitrogen 40 mg/dL (9-20); Calcium 8.5 mg/dL (8.4-10.2); Carbon Dioxide 22 mmol/L (22-30); Chloride 108 mmol/L (98-107); Estimated Glomerular Filt Rate 18; Glucose 97 mg/dL (65-110); Phosphorus 5.1 mg/dL (2.5-4.5); Potassium 6.2 mmol/L (3.4-5.0); Sodium 138 mmol/L (137-145)
== END 2023-01-12 11:20 | disposition home or self-care (01) ==
PROVIDERS: Visit Provider Internal Medicine Nephrology
DX: N17.9 Acute kidney failure, unspecified (principal); N18.4 Chronic kidney disease, stage 4 (severe)
CPT/HCPCS: 36415; 80069

== ENCOUNTER 2023-01-14 09:55 | Outpatient (CLI) | payer MEDICARE, MEDICAID, SELFPAY ==
[2023-01-14 10:50] LABS: Anion Gap 7 mmol/L (8-16); Blood Urea Nitrogen 42 mg/dL (9-20); Calcium 8.4 mg/dL (8.4-10.2); Carbon Dioxide 24 mmol/L (22-30); Chloride 107 mmol/L (98-107); Estimated Glomerular Filt Rate 19; Glucose 100 mg/dL (65-110); Phosphorus 4.5 mg/dL (2.5-4.5); Potassium 6.1 mmol/L (3.4-5.0); Sodium 138 mmol/L (137-145)
== END 2023-01-14 09:56 | disposition home or self-care (01) ==
PROVIDERS: Visit Provider Internal Medicine Nephrology
DX: N17.9 Acute kidney failure, unspecified (principal); N18.4 Chronic kidney disease, stage 4 (severe)
CPT/HCPCS: 36415; 80069

== ENCOUNTER 2023-01-20 09:38 | Outpatient (CLI) | payer MEDICARE, MEDICAID, SELFPAY ==
[2023-01-20 10:34] LABS: Anion Gap 11 mmol/L (8-16); Blood Urea Nitrogen 63 mg/dL (9-20); Calcium 7.8 mg/dL (8.4-10.2); Carbon Dioxide 17 mmol/L (22-30); Chloride 109 mmol/L (98-107); Estimated Glomerular Filt Rate 18; Glucose 112 mg/dL (65-110); Phosphorus 5.2 mg/dL (2.5-4.5); Potassium 6.3 mmol/L (3.4-5.0); Sodium 137 mmol/L (137-145)
== END 2023-01-20 09:39 | disposition home or self-care (01) ==
LOC: ANHLAB 09:41
PROVIDERS: Visit Provider Internal Medicine Nephrology
DX: E87.5 Hyperkalemia (principal); N17.9 Acute kidney failure, unspecified; N18.4 Chronic kidney disease, stage 4 (severe)
CPT/HCPCS: 36415; 80069

== ENCOUNTER 2023-02-03 12:43 | Outpatient (CLI) | payer MEDICARE, MEDICAID, SELFPAY ==
[2023-02-03 14:07] LABS: Albumin Level 3.9 g/dL (3.5-5.1); Anion Gap 11 mmol/L (8-16); Blood Urea Nitrogen 43 mg/dL (9-20); Calcium 8.1 mg/dL (8.4-10.2); Carbon Dioxide 16 mmol/L (22-30); Chloride 110 mmol/L (98-107); Estimated Glomerular Filt Rate 19; Glucose 103 mg/dL (65-110); Phosphorus 4.1 mg/dL (2.5-4.5); Potassium 4.9 mmol/L (3.4-5.0); Sodium 137 mmol/L (137-145)
== END 2023-02-03 12:44 | disposition home or self-care (01) ==
LOC: ANHLAB 12:45
PROVIDERS: Visit Provider Internal Medicine Nephrology
DX: E87.5 Hyperkalemia (principal); N18.4 Chronic kidney disease, stage 4 (severe)
CPT/HCPCS: 36415; 80069

== ENCOUNTER 2023-03-31 10:49 | Outpatient (CLI) | payer MEDICARE, MEDICAID, SELFPAY ==
[2023-03-31 12:07] LABS: Albumin Level 3.9 g/dL (3.5-5.1); Anion Gap 7 mmol/L (8-16); Blood Urea Nitrogen 57 mg/dL (9-20); Calcium 8.2 mg/dL (8.4-10.2); Carbon Dioxide 15 mmol/L (22-30); Chloride 113 mmol/L (98-107); Estimated Glomerular Filt Rate 17; Glucose 98 mg/dL (65-110); Phosphorus 4.9 mg/dL (2.5-4.5); Potassium 5.2 mmol/L (3.4-5.0); Sodium 135 mmol/L (137-145)
[2023-03-31 12:17] LABS: Parathyroid Intact 422.9 pg/mL (7.5-53.5)
[2023-03-31 12:43] LABS: Vitamin D 25 Hydroxy 14.4 ng/mL
== END 2023-03-31 10:50 | disposition home or self-care (01) ==
PROVIDERS: Visit Provider Internal Medicine Nephrology
DX: N18.4 Chronic kidney disease, stage 4 (severe) (principal); N25.81 Secondary hyperparathyroidism of renal origin; E55.9 Vitamin D deficiency, unspecified
CPT/HCPCS: 36415; 80069; 82306; 83970

== ENCOUNTER 2023-04-29 07:46 | Outpatient (CLI) | payer MEDICARE, MEDICAID, SELFPAY ==
--- NOTE | ~2023-04-29 | CT_ITS ---
Non-contrast CT scan of the Abdomen and Pelvis Clinical indication: Bilateral inguinal hernia Technique: 2.5 mm axial scans were obtained through the abdomen and pelvis without intravenous or or al contrast. Dose reduction technique was used on this scan by utilizing automated exposure control a nd iterative reconstruction technique. The dose-length product (DLP) was 1216.18 mGy-cm. Findings: Images through the lung bases reveal small bilateral pleural effusions, left greater than right, with bibasilar atelectatic change. There is no evidence of renal or ureteral calculi. The kidneys and the ureters are nondilated. The liver, spleen, pancreas, gallbladder, and adrenals appear normal. There are atherosclerotic calc ifications of the aorta. There is no evidence of ascites or lymphadenopathy. Urinary bladder unremarkable. Prostate gland and seminal vesicles are unremarkable. There is an extremely large left inguinal hernia containing most o f the sigmoid colon, as well as a large amount of mesenteric fat. The visualized herniated bowel loop is unremarkable. No definite bowel obstruction or bowel wall thickening seen. Hernia itself is incom pletely included in the [id number] due to its size and inferior extension. No right inguinal herni a seen. Colonic diverticulosis noted. Normal appendix. Impression: Extremely large left inguinal hernia containing most of the sigmoid colon and large amount of mesente christine fat. No definite bowel obstruction or bowel wall thickening. Hernia is incompletely included in t he riqqz-[id number] due to its large size/inferior extension. Small bilateral pleural effusions, left greater than right, with bibasilar atelectatic change. No right inguinal hernia. Reviewed, dictated and finalized at location [facility]. Impression: Extremely large left inguinal hernia containing most of the sigmoid colon and l arge amount of mesenteric fat. No definite bowel obstruction or bowel wall thic kening. Hernia is incompletely included in the [id number] due to its large s ize/inferior extension. Small bilateral pleural effusions, left greater than right, with bibasilar atel ectatic change. No right inguinal hernia.
== END 2023-04-29 07:47 | disposition home or self-care (01) ==
LOC: ANHIMG 07:51
PROVIDERS: Visit Provider Surgery
DX: K40.90 Unilateral inguinal hernia, without obstruction or gangrene, not specified as recurrent (principal); J90 Pleural effusion, not elsewhere classified
CPT/HCPCS: 74176

== ENCOUNTER 2023-07-01 10:49 | Outpatient (CLI) | payer MEDICARE, MEDICAID, SELFPAY ==
[2023-07-01 11:21] LABS: Albumin Level 4.2 g/dL (3.5-5.1); Anion Gap 10 mmol/L (8-16); Blood Urea Nitrogen 64 mg/dL (9-20); Calcium 8.4 mg/dL (8.4-10.2); Carbon Dioxide 16 mmol/L (22-30); Chloride 110 mmol/L (98-107); Estimated Glomerular Filt Rate 12; Glucose 100 mg/dL (65-110); Phosphorus 4.5 mg/dL (2.5-4.5); Potassium 5.7 mmol/L (3.4-5.0); Sodium 136 mmol/L (137-145)
[2023-07-01 18:41] LABS: Vitamin D 25 Hydroxy 21.9 ng/mL
== END 2023-07-01 10:50 | disposition home or self-care (01) ==
LOC: ANHLAB 10:51
PROVIDERS: Visit Provider Internal Medicine Nephrology
DX: I12.9 Hypertensive chronic kidney disease with stage 1 through stage 4 chronic kidney disease, or unspecified chronic kidney disease (principal); N18.4 Chronic kidney disease, stage 4 (severe)
CPT/HCPCS: 36415; 80069; 82306

== ENCOUNTER 2023-08-16 10:54 | Outpatient (CLI) | payer MEDICARE, MEDICAID, SELFPAY ==
[2023-08-16 11:57] LABS: Albumin Level 3.9 g/dL (3.5-5.1); Anion Gap 8 mmol/L (8-16); Blood Urea Nitrogen 44 mg/dL (9-20); Calcium 8.5 mg/dL (8.4-10.2); Carbon Dioxide 15 mmol/L (22-30); Chloride 114 mmol/L (98-107); Estimated Glomerular Filt Rate 19; Glucose 99 mg/dL (65-110); Sodium 137 mmol/L (137-145)
== END 2023-08-16 10:55 | disposition home or self-care (01) ==
PROVIDERS: PCP Family Medicine; Visit Provider Internal Medicine Nephrology
DX: I12.9 Hypertensive chronic kidney disease with stage 1 through stage 4 chronic kidney disease, or unspecified chronic kidney disease (principal); N18.4 Chronic kidney disease, stage 4 (severe)
CPT/HCPCS: 36415; 80069

== ENCOUNTER 2023-10-11 11:06 | Outpatient (CLI) | payer MEDICARE, MEDICAID, SELFPAY ==
[2023-10-11 12:29] LABS: Parathyroid Intact 289.3 pg/mL (7.5-53.5)
[2023-10-11 12:44] LABS: Vitamin D 25 Hydroxy 19.9 ng/mL
[2023-10-11 13:17] LABS: Albumin Level 3.4 g/dL (3.5-5.1); Anion Gap 8 mmol/L (8-16); Blood Urea Nitrogen 54 mg/dL (9-20); Calcium 8.6 mg/dL (8.4-10.2); Carbon Dioxide 15 mmol/L (22-30); Chloride 115 mmol/L (98-107); Estimated Glomerular Filt Rate 19; Glucose 108 mg/dL (65-110); Phosphorus 3.5 mg/dL (2.5-4.5); Potassium 6.1 mmol/L (3.4-5.0); Sodium 138 mmol/L (137-145)
== END 2023-10-11 11:07 | disposition home or self-care (01) ==
LOC: ANHLAB 11:11
PROVIDERS: PCP Family Medicine; Visit Provider Internal Medicine Nephrology
DX: I12.9 Hypertensive chronic kidney disease with stage 1 through stage 4 chronic kidney disease, or unspecified chronic kidney disease (principal); N18.4 Chronic kidney disease, stage 4 (severe); E55.9 Vitamin D deficiency, unspecified; N25.81 Secondary hyperparathyroidism of renal origin
CPT/HCPCS: 36415; 80069; 82306; 83970

== ENCOUNTER 2023-11-18 09:29 | Outpatient (CLI) | payer MEDICARE, MEDICAID, SELFPAY ==
--- NOTE | ~2023-11-18 | CT_ITS ---
EXAMINATION: CT abdomen pelvis wo con DATE: 11/18/2023 09:53 INDICATION: Inguinal hernia repair TECHNIQUE: Computed tomography (CT) of the abdomen and pelvis was performed without intravenous contr ast. Automated exposure control and iterative reconstruction technique were employed. Exam dose: 687 .85 mGy-cm total exam DLP. COMPARISON: 04/29/2023 CT abdomen pelvis FINDINGS: Bilateral dependent lower lobe atelectasis and/or fibrotic change. Minimal left pleural eff usion. Right atrial and right ventricular pacemaker leads. No pericardial effusion. No gallbladder wall thickening or pericholecystic fluid or fat stranding. No bile duct or pancreatic duct dilatation. No hepatic, splenic, pancreatic or adrenal space-occupying mass lesion is evident. No renal mass lesion or hydroureteronephrosis. The urinary bladder is unremarkable. Approximately 12 x 14 mm left inguinal large apparently complicated fluid collection with mildly irre gular approximately 4.7 mm thick soft tissue capsule. There is no inguinal hernia or sigmoid colon he rniation at the left inguinal canal compared to 04/29/2023. Extensive diverticulosis throughout the left and right colon. No CT evidence of diverticulitis, bowel wall thickening, pneumatosis or intraperitoneal free air. Normal appendix. There is atherosclerotic calcification of the abdominal aorta and iliac arteries but no abdominal aor tic aneurysm. No intraperitoneal or retroperitoneal or pelvic mass lesion or adenopathy or ascites. Chronic anterior wedging of T12 and L1, chronic stable prominent loss of height and anterior wedging of L3 and fusion at L2-L3. IMPRESSION: Large complicated fluid collection of approximately 12 x 14 cm dimension the left inguin al canal, possibly a large hematoma or seroma post left inguinal hernia repair Extensive diverticulosis of left and right colon; no evidence of diverticulitis Normal appendix Prominent bilateral dependent lower lobe atelectasis and/or scarring Reviewed, dictated and finalized at [facility]. Reviewed, dictated and finalized at location L. IMPRESSION: Large complicated fluid collection of approximately 12 x 14 cm dim ension the left inguinal canal, possibly a large hematoma or seroma post left i nguinal hernia repair Extensive diverticulosis of left and right colon; no evidence of diverticulitis Normal appendix Prominent bilateral dependent lower lobe atelectasis and/or scarring
== END 2023-11-18 09:30 | disposition home or self-care (01) ==
PROVIDERS: PCP Family Medicine
DX: Z98.890 Other specified postprocedural states (principal); Z87.19 Personal history of other diseases of the digestive system; K57.30 Diverticulosis of large intestine without perforation or abscess without bleeding
CPT/HCPCS: 74176

== ENCOUNTER 2024-01-28 10:10 | Outpatient (CLI) | payer MEDICARE, MEDICAID, SELFPAY ==
[2024-01-28 10:56] LABS: Anion Gap 10 mmol/L (4-12); Blood Urea Nitrogen 64 mg/dL (9-20); Calcium 8.5 mg/dL (8.4-10.2); Carbon Dioxide 16 mmol/L (22-30); Chloride 112 mmol/L (98-107); Estimated Glomerular Filt Rate 18; Glucose 156 mg/dL (65-110); Phosphorus 5.5 mg/dL (2.5-4.5); Potassium 5.4 mmol/L (3.4-5.0); Sodium 138 mmol/L (137-145)
[2024-01-28 11:19] LABS: Vitamin D 25 Hydroxy 18.9 ng/mL
[2024-01-28 11:33] LABS: Creatinine Urine 57.8 mg/dL
[2024-01-28 11:54] LABS: Total Protein Urine Random 437 mg/dL; Ur Ttl Prot Creatinine Ratio 7.56 mg/mg (0-0.20)
== END 2024-01-28 10:11 | disposition home or self-care (01) ==
LOC: ANHLAB 10:15
PROVIDERS: PCP Family Medicine; Visit Provider Internal Medicine Nephrology
DX: E55.9 Vitamin D deficiency, unspecified (principal); I12.9 Hypertensive chronic kidney disease with stage 1 through stage 4 chronic kidney disease, or unspecified chronic kidney disease; N18.4 Chronic kidney disease, stage 4 (severe)
CPT/HCPCS: 36415; 80069; 82306; 82570; 84156

== ENCOUNTER 2024-04-26 10:50 | Outpatient (CLI) | payer MEDICARE, MEDICAID, SELFPAY ==
[2024-04-26 11:35] LABS: Anion Gap 11 mmol/L (4-12); Blood Urea Nitrogen 65 mg/dL (9-20); Calcium 8.4 mg/dL (8.4-10.2); Carbon Dioxide 17 mmol/L (22-30); Chloride 109 mmol/L (98-107); Estimated Glomerular Filt Rate 16; Glucose 109 mg/dL (65-110); Phosphorus 4.3 mg/dL (2.5-4.5); Potassium 5.8 mmol/L (3.4-5.0); Sodium 137 mmol/L (137-145)
[2024-04-26 11:47] LABS: Creatinine Urine 57.2 mg/dL
[2024-04-26 11:48] LABS: Parathyroid Intact 315.7 pg/mL (14.5-75.2)
[2024-04-26 12:13] LABS: Vitamin D 25 Hydroxy 22.8 ng/mL
[2024-04-26 12:19] LABS: Total Protein Urine Random 348 mg/dL; Ur Ttl Prot Creatinine Ratio 6.08 mg/mg (0-0.20)
== END 2024-04-26 10:51 | disposition home or self-care (01) ==
LOC: ANHLAB 10:53
PROVIDERS: PCP Family Medicine; Visit Provider Internal Medicine Nephrology
DX: I12.9 Hypertensive chronic kidney disease with stage 1 through stage 4 chronic kidney disease, or unspecified chronic kidney disease (principal); N18.4 Chronic kidney disease, stage 4 (severe); E55.9 Vitamin D deficiency, unspecified; N25.81 Secondary hyperparathyroidism of renal origin
CPT/HCPCS: 36415; 80069; 82306; 82570; 83970; 84156

== ENCOUNTER 2024-05-22 08:34 | Inpatient (IN) | payer MEDICARE, MEDICAID, SELFPAY ==
[2024-05-22] VITALS (59 sets, daily range): BP systolic 70–116; BP diastolic 45–73; PULSE 80–112; RESP 14–58; TEMP 36.3–37.7; O2SAT 97–100; BMI 30.4
--- NOTE | 2024-05-22 | ECHO_ITS ---
Patient Info Name: Chau Cho Age: 59 years : 1965 Gender: Male Ht: 70 in Wt: 185 lbs BSA: 2.05 m2 HR: 89 bpm BP: 102 / 57 mmHg Heart Rhythm: Paced Technical Quality: Fair Exam Date: 05/22/2024 1:48 PM Exam Location: Echo Lab Patient Status: Inpatient Admit Date: 05/22/2024 Staff Ordering Physician: Bryan Santana MD Electrician Station Assistant: Dee Arriaga RDCS Attending Provider: Michael Freire MD Exam Type: CA echo dop color flow w con Study Info Indications - SHOCK Complete two-dimensional, color flow and Doppler transthoracic echocardiogram is performed with contrast to opacify the left ventricle and to improve the deliniation of the left ventricle endocardial borders. Summary 1. Left ventricular chamber dimension is normal. 2. Left ventricular systolic function is normal, estimated at 55-60%. 3. The left ventricular diastolic function is grade I diastolic dysfunction. 4. Right ventricular systolic function is normal. 5. Left atrial chamber dimension is mildly enlarged. 6. There is severe aortic valve calcification. 7. There is moderate to severe aortic valve stenosis with a peak velocity of 388.85 cm/s, mean gradient of 42 mmHg, and aortic valve area of 1.19 cm2. 8. The mitral valve has thickened leaflets. 9. The mitral valve annulus is severely calcified. 10. Small, mobile echodensity on the ventricular aspect of the mitral valve. Cannot rule out vegetation. 11. There is mild to moderate mitral valve regurgitation. Severity of regurgitation may be underestimated due to eccentricity of the jet. 12. There is trivial pericardial effusion. Left Ventricle Left ventricular chamber dimension is normal. Left ventricular systolic function is normal, estimated at 55-60%. Left ventricular septal wall motion is abnormal with septal motion related to pacing. The left ventricular diastolic function is grade I diastolic dysfunction. Right Ventricle Linear artifact in right ventricle suggestive of catheter(s), pacemaker lead(s), or ICD lead(s). Right ventricular chamber dimension is normal. Right ventricular systolic function is normal. Left Atria Left atrial chamber dimension is mildly enlarged. Right Atria Linear artifact in the right atrium suggestive of catheter(s), pacemaker lead(s), or ICD lead(s). Right atrial chamber dimension is normal. Atrial Septum Intact interatrial septum visualized by color flow imaging. Aortic Valve The aortic valve is probable trileaflet. There is moderate to severe aortic valve stenosis with a peak velocity of 388.85 cm/s, mean gradient of 42 mmHg, and aortic valve area of 1.19 cm2. There is no aortic valve regurgitation. There is severe aortic valve calcification. Pulmonic Valve The pulmonic valve is not well visualized. There is no pulmonic regurgitation. Mitral Valve Small, mobile echodensity on the ventricular aspect of the mitral valve. Cannot rule out vegetation. The mitral valve has thickened leaflets. There is mild to moderate mitral valve regurgitation. Severity of regurgitation may be underestimated due to eccentricity of the jet. The mitral valve annulus is severely calcified. Tricuspid Valve There is trace tricuspid valve regurgitation. Pericardium/Pleural There is trivial pericardial effusion. Inferior Vena Cava Normal inferior vena cava with <50% collapse upon inspiration consistent with elevated right atrial pressure, 8 mmHg. Aorta The aortic root size at the sinus of Valsalva is normal. Left Ventricular Outflow Tract Nam
--- NOTE | ~2024-05-22 | XR_ITS ---
EXAMINATION: XR chest 1V portable DATE: 05/22/2024 09:05 INDICATION: Chest pain and shortness of breath. TECHNIQUE: A single frontal view of the chest was obtained. COMPARISON: Chest single view 11/12/2022, CT abdomen and pelvis 11/18/2023 FINDINGS: There are small pleural effusions versus pleural thickening. There is mild atelectasis in t he lower lung zones. No pneumothorax. The heart size is normal. There is a left chest wall pacer with leads in the right atrium and right ventricle. IMPRESSION: 1. Chronic small pleural effusions versus pleural thickening. 2. Mild atelectasis in the lower lung zones. Reviewed, dictated and finalized at location A.
--- NOTE | ~2024-05-22 | XR_ITS ---
XR chest 1V portable 05/26/2024 07:31 Indication: Acute renal insufficiency Procedure: AP portable chest Comparison: Comparison to multiple prior studies sequentially, with oldest reviewed study dated 11/09. Findings: Cardiomegaly. Pacemaker leads are stable. Mild interstitial edema. Bibasilar airspace disea se may reflect edema or superimposed pneumonia. Small pleural effusions. Impression: 1: Cardiomegaly with interstitial edema. Cannot exclude superimposed pneumonia. No significant interv al change compared with 05/25/2024. Reviewed, dictated and finalized at location B. Impression: 1: Cardiomegaly with interstitial edema. Cannot exclude superimposed pneumonia. No significant interval change compared with 05/25/2024.
--- NOTE | ~2024-05-22 | CT_ITS ---
EXAMINATION: CT chest abdomen pelvis wo con DATE: 05/22/2024 11:21 INDICATION: Chest pain. TECHNIQUE: Computed tomography (CT) of the chest, abdomen, and pelvis was performed without intraveno us contrast. Automated exposure control and iterative reconstruction technique were employed. The dos e-length product was 1631.06 mGy-cm. COMPARISON: CT abdomen and pelvis 11/18/2023, 04/29/2023 FINDINGS: CHEST CT: The lungs demonstrate chronic pleural thickening and trace pleural effusions. There is peripheral rou nded atelectasis in all lobes, worst in the lower lobes. There is smooth septal thickening in the chun gs, consistent with mild pulmonary edema. Cardiomegaly is noted. There are coronary artery calcificat ions. There are calcifications of the aortic valve. There is a trace pericardial effusion. There is a left chest wall pacer with leads in the right atrium and right ventricle. There is bilateral gynecom astia. There is moderate thoracic spondylosis. ABDOMEN/PELVIS CT: The liver demonstrates surface undulating, consistent with cirrhosis. There is severe splenomegaly. T he gallbladder is normal in size. Gallbladder wall thickening is likely secondary to chronic liver di sease and interstitial edema. The pancreas and adrenal glands are normal. There is mild atrophy of ri ght kidney. There is a 3 mm stone in right kidney. There is a 14 mm cyst in left kidney. There is an umbilical hernia containing fat. There is diverticulosis of the colon without evidence of diverticuli tis. There are no dilated loops of bowel. The appendix is normal. There is calcified atherosclerosis of the aorta and many of the other arteries. There is mild aortocaval and left para-aortic lymphadeno toi, likely reactive. There is no free intraperitoneal fluid. There is fat stranding of the body wa ll and intra-abdominal fat, consistent with edema. There is 11.9 cm mass in the scrotum on the left. There is a chronic burst fracture of L3. There is interbody fusion at L2-L3. There is moderate lumbar spondylosis. IMPRESSION: 1. Mild pulmonary edema. 2. Chronic pleural thickening in the lungs with peripheral rounded atelectasis. 3. Cirrhosis of the liver with portal venous hypertension. 4. Mild retroperitoneal lymphadenopathy, likely reactive. 5. 11.9 cm mass in the scrotum on the left, decreased from 14.3 cm on 11/18/23. This finding is most l ikely a chronic hematoma given the history of inguinal hernia repair. 6. Umbilical hernia containing fat. Reviewed, dictated and finalized at location A. IMPRESSION: 1. Mild pulmonary edema. 2. Chronic pleural thickening in the lungs with peripheral rounded atelectasis. 3. Cirrhosis of the liver with portal venous hypertension. 4. Mild retroperitoneal lymphadenopathy, likely reactive. 5. 11.9 cm mass in the scrotum on the left, decreased from 14.3 cm on 11/18/23. This finding is most likely a chronic hematoma given the history of inguinal he rnia repair. 6. Umbilical hernia containing fat.
--- NOTE | ~2024-05-22 | CT_ITS ---
Non-contrast Head CT History: Confusion Technique: Axial non-contrast imaging of the brain was performed. Dose reduction technique was used on this scan by utilizing automated exposure control and iterative reconstruction technique. The dose -length product (DLP) was 681.00 mGy-cm. Findings: There is no evidence of intracranial hemorrhage, mass lesion, or acute infarct. Brain par enchyma appears normal. The ventricles and subarachnoid spaces are normal in size. The calvarium ap pears normal. The visualized paranasal sinuses and mastoid air cells are clear. Impression: No significant abnormality seen. Reviewed, dictated and finalized at location . Impression: No significant abnormality seen.
--- NOTE | ~2024-05-22 | US_ITS ---
EXAMINATION: US renal BI DATE: 05/23/2024 14:27 INDICATION: Acute on chronic kidney disease TECHNIQUE: Multiple ultrasound grayscale images of the kidneys were obtained. COMPARISON: CT dated 05/22/2024 FINDINGS: The right kidney measures 8.8 x 3.5 x 4.9 cm. The left kidney measures 9.7 x 5.3 x 4.8 cm. The kidney s demonstrate normal echogenicity. Asymmetric mild renal atrophy. 9 mm anechoic left renal cyst. Ther e is no hydronephrosis in either kidney. No stones identified. The bladder is nonvisualized and like ly decompressed a Mendoza catheter reportedly in place. Minimal perihepatic ascites likely related to c irrhosis as described on prior CT. IMPRESSION: 1. Asymmetric mild renal atrophy and 9 mm left renal cyst. No hydronephrosis. Reviewed, dictated and finalized at location A.
--- NOTE | ~2024-05-22 | XR_ITS ---
EXAMINATION: XR chest 1V portable DATE: 05/25/2024 05:22 INDICATION: Acute on chronic kidney disease TECHNIQUE: frontal view of the chest was obtained. COMPARISON: Chest radiograph and CT dated 05/22/2024 FINDINGS: Stable appearance of airspace opacities in the bilateral mid and lower lung zones which corresponds t o a atelectasis/scarring including regions of round atelectasis in the lingula and bilateral lower lo bes on CT. Slight increase in blunting at the costophrenic angles consistent with mild increase in st ill small bilateral pleural effusions. No pneumothorax. Cardiomegaly Dual lead pacemaker seen with le ads projecting over the expected locations of the right atrium and right ventricle. IMPRESSION: 1. Interval increase in still small bilateral pleural effusions. 2. Stable appearance of additional opacities in the bilateral mid and lower lung zones corresponding to chronic atelectasis/scarring. 3. Cardiomegaly. Reviewed, dictated and finalized at location A. IMPRESSION: 1. Interval increase in still small bilateral pleural effusions. 2. Stable appearance of additional opacities in the bilateral mid and lower chun g zones corresponding to chronic atelectasis/scarring. 3. Cardiomegaly.
--- NOTE | 2024-05-22 08:35 | ECG_ITS ---
Test Date: 2024-05-22 08:45:58 Measurements Intervals [place] Rate: 103 P: 53 NC: 230 QRS: -2 QRSD: 137 T: 149 QT: 337 QTc: 443 Interpretive Statements SINUS TACHYCARDIA WITH FIRST DEGREE AV BLOCK LEFT BUNDLE BRANCH BLOCK BASELINE ARTIFACT- I, II, AVR, AVL, V3 ABNORMAL ECG No previous ECG available for comparison Electronically Signed On 05-22-2024 09:32:46 CDT by Thony Rincon D.O.
[2024-05-22] MEDS: SODIUM CHLORIDE 0.9% IV 1,000 ML 999 ML IV CONT ×3 (08:54→10:08)
[2024-05-22 08:58] LABS: Basophils Percent Auto 0.3 % (0.2-1.2); Eosinophils Percent Auto 0.2 % (0-4.4); Hematocrit 26.5 % (42.0-52.0); Hemoglobin 8.4 g/dL (14.0-18.0); Immature Granulocyte Absolute 0.07 K/mm3 (0.00-0.031); Immature Granulocyte Percent A 1.1 % (0-0.5); Immature Platelet Fraction Pct 2.3 % (0.9-11.2); Lymphocytes Absolute Auto 0.34 K/mm3 (0.9-3.2); Lymphocytes Percent Auto 5.2 % (18.3-44.2); Mean Corpuscular HGB Conc 31.7 g/dl (32-36); Mean Corpuscular Hemoglobin 28.5 pg (26-34); Mean Corpuscular Volume 89.8 fl (80-100); Mean Platelet Volume 11.8 fl (7.4-10.4); Monocytes Absolute Auto 0.4 K/mm3 (0.1-0.6); Monocytes Percent Auto 6.3 % (2.6-8.5); Neutrophils Absolute Auto 5.7 K/mm3 (1.3-6.7); Neutrophils Percent Auto 86.9 % (45.5-73.1); Platelet Count Result 69 k/mm3 (150-375); Red Blood Count 2.95 M/mm3 (4.6-6.20); Red Cell Distribution Width 17.2 % (11.5-14.5); White Blood Count 6.5 K/mm3 (4.5-10.0)
[2024-05-22 09:06] LABS: Alanine Aminotransferase 14 U/L (6-50); Albumin Level 2.8 g/dL (3.5-5.1); Alkaline Phosphatase 218 U/L (38-126); Anion Gap 12 mmol/L (4-12); Aspartate Amino Transferase 18 U/L (17-59); Bilirubin,Total 0.6 mg/dL (0.2-1.3); Blood Urea Nitrogen 103 mg/dL (9-20); Calcium 7.3 mg/dL (8.4-10.2); Carbon Dioxide 9 mmol/L (22-30); Chloride 106 mmol/L (98-107); Estimated CRCL calculation 14 ml/min; Estimated Glomerular Filt Rate 10; Glucose 112 mg/dL (65-110); Lipase 65 U/L (23-300); Potassium 5.4 mmol/L (3.4-5.0); Sodium 127 mmol/L (137-145)
--- NOTE | 2024-05-22 09:07 | ECG_ITS ---
Test Date: 2024-05-22 09:12:53 Measurements Intervals [place] Rate: 101 P: 45 CA: 232 QRS: -10 QRSD: 138 T: 150 QT: 349 QTc: 453 Interpretive Statements SINUS TACHYCARDIA WITH FIRST DEGREE AV BLOCK LEFT BUNDLE BRANCH BLOCK ABNORMAL ECG Compared to ECG 05/22/2024 08:45:58 NO SIGNIFICANT CHANGE Electronically Signed On 05-22-2024 09:34:10 CDT by Thony Rincon D.O.
[2024-05-22 09:10] LABS: Anisocytosis 1+; Platelet Estimate Decreased (Adequate)
[2024-05-22 09:11] LABS: Crenated RBC 1+; INR 1.3; Ovalocytes 1+; Prothrombin Time 16.9 Seconds (11.1-14.7); Schistocytes None Seen
[2024-05-22 09:12] LABS: Partial Thromboplastin Time 42.3 Seconds (22.3-36.8)
[2024-05-22 09:16] LABS: Alveolar/Arterial O2 Gradient 29.2 mmHg; Base Excess ABG -14.3 mEq/l (+/-2.0); Fractional Inspired Oxygen 21 %; HCO3 ABG 10.5 mEq/l (22.0-26.0); Oxygen Content ABG 11.6 %vol (16.0-22.0); Oxygen Saturation ABG 96.8 % (95.0-100.0); Oxyhemoglobin 95.7 % THb (90.0-100.0); PO2 ABG 94.9 mmHg (80.0-100.0); PO2 FiO2 Ratio Arterial Blood 4.52 %; Total Hemoglobin 8.5 g/dL (12.0-18.0); pH ABG 7.307 (7.350-7.450)
[2024-05-22 09:17] LABS: Modified Allen's Test Pass; PCO2 ABG 21.4 mmHg (35.0-45.0); Site Drawn RIGHT RADIAL
[2024-05-22 09:18] LABS: Device ROOM AIR
[2024-05-22 09:19] LABS: Troponin I 0.864 ng/mL (0.000-0.034)
--- NOTE | 2024-05-22 09:35 | ED.GENADULT ---
HPI - General Adult General Chief complaint: Chest Pain Stated complaint: CP and SOB History of Present Illness HPI narrative: This is a 59-year-old male presenting for chest pain. Patient described throbbing chest pain in center of chest that radiated to both arms, right worse than left. This started @2 in the morning. It woke him from sleep. He has had dyspnea on exertion. He denies fevers chills nausea vomiting or diarrhea. He denies abdominal pain or urinary symptoms. When EMS picked him up he was hypotensive and ill-appearing appearing. Related Data Home Medications Medication Instructions Recorded Confirmed sodium zirconium cyclosilicate 10 10 g PO DAILY PRN hyperkalemia 10/13/23 05/03/24 gram oral powder packet (Lokelma) Allergies Allergy/AdvReac Type Severity Reaction Status Date / Time morphine AdvReac Mild Agitated Verified 05/22/24 08:37 [facility] Past Medical History Medical History Chronic kidney disease Heart failure of unknown type History of blood transfusion History of pneumothorax Hypertension Restless legs syndrome Tobacco dependence Vitamin D deficiency Surgical History Surgical History History of hernia repair inguinal hernia repair back in 2004 History of renal stent Pacemaker Family History Family History Other Cerebrovascular accident Heart disease Hypertension Social History Social History Social History: . Surrogate medical decision maker: Dolores Cho, daughter. ) Code status: Full code. Smoking packs per day: 0.5 Smoking cigarettes per day: 10.0 Years smoked: 20 Smoking pack-years: 10.00 Smoking status: Former smoker Tobacco type: cigarettes Additional smoking assessment comments: Up to 0.5 ppd, now smokes a carton a month. Alcohol intake: never Substance use: current Substance use type: marijuana Do You Feel Safe in your Home?: Yes Lack of Transportation: No Lack of Food: Never True Current Housing: I Have Housing Concerned About Future Housing: No Difficulty Paying Gas/Electric Bills: No Difficulty Paying for Meds: No Currently Unemployed: Decline to Answer Education: High School Diploma/GED Difficulty w/ Childcare or Family Care: No Living arrangements: with family Additional living arrangements comments: Lives with daughter in [place]. Additional occupation/education comments: Disabled. Gender identity (if verbalized by the patient): Male Sexual Orientation (if Verbalized by the Patient): Straight or Heterosexual Spiritual care concerns: No Exam Narrative: APPEARANCE: Ill-appearing Head: atraumatic. EYES: EOMI, NOSE: Atraumatic NECK: Trachea midline RESPIRATORY: Slightly tachypneic, bibasilar crackles CARDIOVASCULAR: RRR, strong pulses in all extremities ABDOMINAL: Soft nontender no guarding or rebound. Reducible umbilical hernia, large nontender inguinal hernia on the left scrotum MUSCULOSKELETAl: Focal exam of the right upper extremity revealed no overlying skin changes. All compartments are soft. Strong pulses in radial ulnar distribution and intact catia designer strength. NEURO: Alert. Moving 4/4 extremities SKIN:: Clammy diaphoretic PSYCHIATRIC: Normal affect Course Vital Signs Vital signs: Vital Signs Pulse Rate 112 H 05/22/24 08:39 Respiratory Rate 27 H 05/22/24 08:39 Blood Pressure 82/50 L 05/22/24 08:39 Pulse Oximetry 98 05/22/24 08:39 Temperature 98.3 F 05/22/24 08:48 Pulse Rate 95 05/22/24 12:07 Respiratory Rate 25 H 05/22/24 11:47 Blood Pressure 84/58 L 05/22/24 12:07 Pulse Oximetry 97 05/22/24 11:47 Oxygen Delivery Room Air 05/22/24 08:50 Procedures Central Line Placement Left Femoral:
[2024-05-22] MEDS: SODIUM ZIRCONIUM CYCLOSILICATE 10 GM POWD.PACK PO ×2 (09:38→17:56)
[2024-05-22] MEDS: INSULIN HUMAN REGULAR (*BKC) 100 UNITS/ML 10 UNITS IV PUSH ×2 (09:38→20:59)
[2024-05-22] MEDS: DEXTROSE 50% 25 GM/50 ML SYRINGE IV PUSH ×3 (09:38→20:59)
[2024-05-22 09:43] LABS: Glucose Point of Care 103 mg/dl (65-105)
[2024-05-22] MEDS: CALCIUM GLUC 1,000 MG/NS 50 ML 1,000 MG/50 ML BAG 100 MG IVPB (09:46)
[2024-05-22 09:51] LABS: Magnesium 1.7 mg/dL (1.6-2.3)
[2024-05-22] MEDS: PIPERACILLN/TAZ 3.375GM/NS50ML 3.375 GM/50 ML BAG IVPB (09:52)
[2024-05-22 10:01] LABS: NT Pro B Type Natriuretic Pept > 30000 pg/mL (19.9-100)
--- NOTE | 2024-05-22 10:06 | PC.NURSE ---
Called Dr. Riley per Dr. Gallo @ [phone], office didnt answer called his cell phone left a voicemail. Called his office back @ [phone], got through was told to call Milvia Mora to get ahold of Dr. Riley. Called Milvia Mora @ [phone]. Dr. Gallo spoke with Milvia Mora!
--- NOTE | 2024-05-22 10:11 | ECG_ITS ---
Test Date: 2024-05-22 10:21:43 Measurements Intervals [place] Rate: 98 P: 50 MO: 238 QRS: -1 QRSD: 133 T: 28 QT: 348 QTc: 444 Interpretive Statements ELECTRONIC VENTRICULAR PACEMAKER NO FURTHER INTERPRETATION IS POSSIBLE ATYPICAL ECG Compared to ECG 05/22/2024 10:13:39 No significant changes Electronically Signed On 05-22-2024 12:12:14 CDT by Thony Rincon D.O.
--- NOTE | 2024-05-22 10:11 | ECG_ITS ---
Test Date: 2024-05-22 10:13:39 Measurements Intervals [place] Rate: 99 P: 245 MA: 152 QRS: -61 QRSD: 191 T: 99 QT: 465 QTc: 599 Interpretive Statements ELECTRONIC VENTRICULAR PACEMAKER NO FURTHER INTERPRETATION IS POSSIBLE ATYPICAL ECG Compared to ECG 05/22/2024 09:12:53 ELECTRONIC VENTRICULAR PACEMAKER NOW PRESENT Electronically Signed On 05-22-2024 12:09:27 CDT by Thony Rincon D.O.
[2024-05-22 10:14] LABS: Influenza A QL RT-PCR Negative (Negative); Influenza B QL RT-PCR Negative (Negative); RSV RNA, RT-PCR Negative (Negative); SARS-CoV-2 RNA PCR Negative (Negative)
[2024-05-22] MEDS: VANCOMYCIN 1,250 MG/NS 250 ML 1,250 MG/250 ML BAG 166.67 MG IVPB (10:25)
[2024-05-22] MEDS: NOREPINEPHRINE 8 MG/D5W 250 ML 8 MG/250 ML BAG 9.38 MG IV CONT (11:03)
[2024-05-22 11:21] LABS: MRSA (PCR) NOT DETECTED (NOT DETECTE)
--- NOTE | 2024-05-22 11:24 | ECG_ITS ---
Test Date: 2024-05-22 11:30:03 Measurements Intervals [place] Rate: 97 P: 240 DC: 156 QRS: -64 QRSD: 218 T: 87 QT: 465 QTc: 591 Interpretive Statements ELECTRONIC VENTRICULAR PACEMAKER NO FURTHER INTERPRETATION IS POSSIBLE ATYPICAL ECG Compared to ECG 05/22/2024 10:21:43 No significant changes Electronically Signed On 05-22-2024 12:12:32 CDT by Thony Rincon D.O.
[2024-05-22 11:29] LABS: Glucose Point of Care 72 mg/dl (65-105)
[2024-05-22 11:29] LABS: Glucose Point of Care 101 mg/dl (65-105)
--- NOTE | 2024-05-22 11:43 | PM.CNCAR ---
Assessment and Plan Assessment and plan (1) NSTEMI (non-ST elevated myocardial infarction): Code(s): I21.4 - Non-ST elevation (NSTEMI) myocardial infarction Status: Acute Assessment and Plan: Presents with an episode of chest pain with sudden onset early this morning. He does not have any known coronary artery disease. Initial troponin elevated at 0.864, subsequently 0.827. He is in a ventricularly paced rhythm on EKG which makes interpretation not feasible. Somewhat atypical chest pain. Cannot rule out underlying coronary artery disease, however I suspect his troponin leak is secondary to his acute on chronic renal insufficiency, hypotension, and anemia. At the present time, he is not a candidate for coronary angiography because of anemia, thrombocytopenia, and renal function (though he may require dialysis nonetheless). Continue to trend troponin Obtain 2D echo with Doppler Would hold off on anticoagulation for now as I suspect this may be a type II NM rather than a true NSTEMI Admit to ICU (2) Severe aortic stenosis: Code(s): I35.0 - Nonrheumatic aortic (valve) stenosis Status: Acute Assessment and Plan: At least moderate . Obtain echo. Avoid hypotension. If he requires further pressor support, would use phenylephrine. (3) Chronic kidney disease, stage IV (severe): Code(s): N18.4 - Chronic kidney disease, stage 4 (severe) Status: Chronic Assessment and Plan: He may require dialysis. Consult nephrology. (4) Benign hypertension with chronic kidney disease: Code(s): I12.9 - Hypertensive chronic kidney disease with stage 1 through stage 4 chronic kidney disease, or unspecified chronic kidney disease Status: Acute Assessment and Plan: Hypotensive, on norepi. History of Present Illness History of Present Illness Consult date/time: 05/22/24 11:43 Requesting physician: Sal Gallo MD Consult reason: chest pain Reason For Visit: CP and SOB Narrative: Chau Cho is a 59 year old male with chronic kidney disease (previously on dialysis, followed by Dr. Ramos), complete heart block (s/p Bio PPM in October,), and hypertension. He comes to the hospital with a chief complaint of chest pain which occurred this morning around 0330, waking him from sleep. Chest pain was associated with shortness of breath and radiated to his right arm. He was brought to the emergency department where he was found to be hypotensive and has been started on pressors. His initial workup is also significant for BUN/SCr 103/6.00, K+ 5.4, H/H 8.4/26.5, and initial troponin 0.864. At the time of this evaluation he reports no chest or arm pain, stating the pain subsided about 30 minutes ago. He remains hypotensive but blood pressure has improved with Norepi. Review of Systems Review of Systems: All systems reviewed & are unremarkable except as noted in HPI and below PMFSH Past Medical History Medical History Chronic kidney disease Heart failure of unknown type History of blood transfusion History of pneumothorax Hypertension Restless legs syndrome Tobacco dependence Vitamin D deficiency Surgical History Surgical History History of hernia repair inguinal hernia repair back in 2004 History of renal stent Pacemaker Family History Family History Other Cerebrovascular accident Heart disease Hypertension Social History Social History Social History: . Surrogate medical decision maker: Dolores Cho, daughter. ) Code status: Full code. Smoking packs per day: 0.5 Smoking cigarettes per day: 10.0 Years smoked: 20 Smoking pack-years: 10.00 Smoking status: Former smoker Tobacco type: cigarettes
[2024-05-22 11:47] LABS: Anion Gap 9 mmol/L (4-12); Blood Urea Nitrogen 101 mg/dL (9-20); Calcium 6.9 mg/dL (8.4-10.2); Carbon Dioxide 9 mmol/L (22-30); Chloride 109 mmol/L (98-107); Estimated CRCL calculation 15 ml/min; Estimated Glomerular Filt Rate 11; Glucose 70 mg/dL (65-110); Potassium 5.3 mmol/L (3.4-5.0); Sodium 127 mmol/L (137-145)
--- NOTE | 2024-05-22 11:53 | PC.NURSE ---
late entry due to patient condition, at 1015 patient became diaphoretic, more hypotensive, and c/o dizziness. fluids infusing per order. MD quevedo notified.
--- NOTE | 2024-05-22 11:54 | PC.NURSE ---
late entry due to patient condition, at 1030 MD Gallo to room to place central line.
--- NOTE | 2024-05-22 11:55 | PC.NURSE ---
at 1124, patient glucose 72. MD quevedo notified and orders obtained.
--- NOTE | 2024-05-22 12:04 | PC.NURSE ---
attempted to straight cath patient after 2 liters of fluids due to patient stating he couldn't use urinal and needing a urine sample. only obtained about 5 ml in bag and unable to send sample at that time.
[2024-05-22 12:08] LABS: Troponin I 0.827 ng/mL (0.000-0.034)
[2024-05-22 12:41] LABS: Glucose Point of Care 105 mg/dl (65-105)
[2024-05-22] MEDS: SODIUM BICARBONATE 8.4% 50 MEQ/50 ML SYRINGE IV PUSH ×2 (12:52→20:59)
[2024-05-22] MEDS: CALCIUM GLUC 2,000 MG/NS 100ML 2,000 MG/100 ML BAG 100 MG IVPB (12:57)
--- NOTE | 2024-05-22 13:15 | WPDCNINT ---
Assessment and Plan Assessment and plan (1) Shock: Code(s): R57.9 - Shock, unspecified Status: Acute Assessment and Plan: Shock secondary to sepsis versus cardiogenic. Patient also has evidence of cirrhosis No obvious symptoms suggestive of infection. His WBC was normal CT scan of chest abdomen pelvis also does not show any source UA is pending Patient is on empiric vancomycin and cefepime Check procalcitonin level Blood cultures have been ordered Continue Levophed titration Patient states 3 L IV fluid bolus and I will hold further IV fluids at this time considering concern for pulmonary edema Check echocardiogram to evaluate his aortic valve and ventricular function (2) NSTEMI (non-ST elevated myocardial infarction): Code(s): I21.4 - Non-ST elevation (NSTEMI) myocardial infarction Status: Acute Assessment and Plan: Patient presented with chest pain which could be cardiac in etiology. Mild elevated troponin but flat curve Pain could be secondary to poor cardiac perfusion from hypotension and aortic stenosis EKG reviewed Patient evaluated by Cardiology Chest pain resolved after improvement in blood pressure Echo ordered Serial troponin Anticoagulation held due to anemia and possibility of needing invasive procedures (3) Severe aortic stenosis: Code(s): I35.0 - Nonrheumatic aortic (valve) stenosis Status: Acute Assessment and Plan: Echo 11/19 Summary 1. Complete two-dimensional, color flow and Doppler transthoracic echocardiogram is performed. 2. Left ventricular chamber dimension is normal. 3. Left ventricular systolic function is normal, estimated at 65-70%. 4. There is moderately increased left ventricular wall thickness. 5. The left ventricular diastolic function is grade I diastolic dysfunction. 6. Right ventricular systolic function is normal. 7. Left atrial chamber dimension is mildly enlarged. 8. There is severe aortic valve calcification. 9. There is severe aortic valve stenosis with a peak velocity of 474 cm/s, mean gradient of 56 mmHg, and aortic valve area of 1.3 cm2. 10. The mitral valve has thickened leaflets. 11. The mitral valve annulus is moderately calcified. 12. There is trace mitral valve regurgitation. 13. There is moderate tricuspid valve regurgitation. 14. There is mild pulmonic regurgitation. 15. Dilated inferior vena cava with <50% collapse upon inspiration consistent with elevated right atrial pressure, 15 mmHg. 16. Pulmonary hypertension with estimated PASP 64mmHg. Cardiology consulted Repeat echo ordered (4) Cbadb-ai-czqmgor kidney injury: Code(s): N17.9 - Acute kidney failure, unspecified; N18.9 - Chronic kidney disease, unspecified Status: Acute Assessment and Plan: Patient developed acute kidney injury in October of 2022 and was started on hemodialysis. A tunneled dialysis catheter was placed. He continued dialysis did February of 2023 when he was weaned off. His baseline creatinine is in 3s He presented today with creatinine of 6 which shows acute worsening which could be from hypotension CT scan does not show any obstruction Nephrology consult Treatment of hyperkalemia and acidosis as below He may need dialysis again Monitor urine output electrolytes and creatinine (5) Metabolic acidosis: Code(s): E87.20 - Acidosis, unspecified Status: Acute Assessment and Plan: Bicarb ordered (6) Acute hyperkalemia: Code(s): E87.5 - Hyperkalemia Status: Acute Assessment and Plan: Patient received insulin, dextrose and Lokelma in the ER Calcium and bicarb has been ordered Repeat BMP has been ordered Plan DVT prophylaxis -SCD Stress ulcer prophylaxis -PPI Nutrition -npo Code Status - Full Code. Patient wants his father to be the decision maker if he is unable to do so himself. Total Critical Care Time - 45 minutes Due to a high probability of clinically significant,
[2024-05-22 13:32] LABS: Procalcitonin 97.3 ng/mL
[2024-05-22 13:33] LABS: Glucose Point of Care 109 mg/dl (65-105)
[2024-05-22] MEDS: PERFLUTREN LIPID MICROSPHERES 1.5 ML VIAL DILUTED TO 10 ML TOTAL VOLUME IV PUSH (13:45)
--- NOTE | 2024-05-22 14:18 | ADMGEN ---
This patient, Chau Cho, was admitted to Intensive Care Unit-5. Patient/family oriented to hospital policies and general routines including ID bracelet, bed and alarms, visiting hours, pain management, procedures, bathroom and other care routines, personal items, smoking policy, room service/diet, and visiting hours. Information on how to activate the Rapid Response Team has been discussed. Patient/Family are encouraged to report perceived risks to care and to ask questions if they do not understand what they are told or what they should do.
--- NOTE | 2024-05-22 14:19 | PC.NURSE ---
Patient admitted to ICU with norepinephrine infusing per orders.
--- NOTE | 2024-05-22 14:34 | IVDEFINITY ---
Prior to administration of IV Definity the patient was educated on the risks and benefits of the imaging enhancing agent including potential adverse side effects. The patient verbalized understanding. Allergies were verified. No exclusion criteria were identified and at least one of the following inclusion criteria were met: 1) physician request, 2) patient technically difficult to image (per the [place] [employer] guidelines of two or more segments not discernable within the apical view), or 3) questionable left ventricular function. ?
[2024-05-22] MEDS: CEFEPIME 1 GM/NS 50 ML 1 GM/50 ML BAG IVPB (15:07)
[2024-05-22 15:16] LABS: Glucose Point of Care 104 mg/dl (65-105)
--- NOTE | 2024-05-22 15:35 | PM.IMHP ---
H&P: HPI History of Present Illness Date/Time: 05/22/24 16:00 Chief Complaint: Chest pain and shortness of breath. Narrative: This is a 59-year-old male with multiple medical problems including severe aortic stenosis on echocardiogram in October 2022 with a valve area of 1.3 centimeter squared, diastolic dysfunction, complete heart block status post permanent pacemaker insertion in October 2022, hypertension, chronic kidney disease with history of temporary dialysis, chronic anemia, and cirrhosis of the liver with evidence of portal hypertension seen on CT scan today who presented to the emergency department via EMS for evaluation of chest pain and shortness of breath. The patient provides the following history. He felt fine when he went to bed last night and was awakened from sleep at about 02:00 with central chest pain which he describes as throbbing in nature, radiating to both arms, right greater than left. He felt short of breath with that as well. On EMS arrival he was hypotensive and he was started on IV fluids and was given aspirin 324 mg en route. He denies syncope, near syncope, headache, neck ache, sinus congestion, sore throat, cough, epigastric and abdominal pain, bloating, vomiting, diarrhea, dysuria, back pain, joint swelling, rash, and open wounds. He also denies sick contacts and recent travel. In the ED: Vital signs on arrival include a blood pressure of 82/50, pulse 112, respiratory rate 27, SpO2 98%, temperature 98.3? labs were significant for WBC count of 6.5, hemoglobin 8.4, platelets 69, sodium 127, potassium 5.4, chloride 109, carbon dioxide 9, anion gap 9, BUN 101, creatinine 5.40, calcium 6.9, troponin 0.827, procalcitonin 97.3, lactic acid 1.0. ABG showed a pH of 7.307, pCO2 21.4, HC03 10.5. He was negative for influenza, RSV, and COVID. Chest x-ray showed chronic small effusions versus pleural thickening and mild atelectasis in the lower lung zones. CT of the chest, abdomen, and pelvis showed mild pulmonary edema, chronic pleural thickening in the lungs, cirrhosis of the liver with portal venous hypertension, and 11.8 cm mass in the scrotum on the left (decreased from imaging on 11/18/2023), most likely chronic hematoma. He was given a 3 L normal saline bolus without significant improvement blood pressures and he was started on norepinephrine. He was treated appropriately for hyperkalemia. He was also started on broad-spectrum antibiotics and is being admitted to the ICU in this setting. Review of Systems Review of Systems: 12 systems were reviewed and are negative except for as per HPI. [facility] Past Medical History Medical History Chronic anemia Chronic kidney disease Cirrhosis of liver Complete heart block Status post pacemaker implantation. Diastolic dysfunction History of blood transfusion History of pneumothorax Hypertension Restless legs syndrome Tobacco dependence Vitamin D deficiency Surgical History Surgical History History of inguinal hernia repair (2004) History of permanent cardiac pacemaker placement For complete heart block. History of renal stent Pacemaker Family History Family History Other Cerebrovascular accident Heart disease Hypertension Social History Social History Social History: Surrogate medical decision maker: Dolores Cho, daughter ([phone]). Code status: Full code. Smoking packs per day: 0.5 Smoking cigarettes per day: 10.0 Years smoked: 20 Smoking pack-years: 10.00 Smoking status: Heavy tobacco smoker Tobacco type: cigars Additional smoking assessment comments: 4-5 cigars/month Alcohol intake: never Substance use: current Substance use type: marijuana Other substance usage details: Cannabis Gummy Unknown Dose but
--- NOTE | 2024-05-22 16:18 | P.CONNP_ITS ---
Assessment and Plan Assessment and plan (1) XOCHITL (acute kidney injury): Code(s): N17.9 - Acute kidney failure, unspecified Status: Acute Assessment and Plan: * as noted by labs on admission * etiology: * hypotension/hemodynamic instability * possible sepsis/infection(?) * prerena factors (?) * cardiac issues/NSTEMI (?) * other (?) * follow on urine studies and renal ultrasound * medical management for hyperkalemia * started on oral sodium bicarbonate (consider bicarb gtt if volume status allows) * remains at risk for needing STARS SPECIALIST/dialysis again * follow repeat labs and UOP (2) Chronic kidney disease, stage IV (severe): Code(s): N18.4 - Chronic kidney disease, stage 4 (severe) Status: Chronic Assessment and Plan: * baseline creatinine has been runnint ~ 3.3 - 3.8mg/dl recently * felt to be secondary hypertension, vascular disease, previous obesity, COURTNEY, and left overs from his previous bouts of XOCHITL/ARF * still has issues with metabolic acidosis and hyperkalemia at baseline requiring ongoing medical management (3) Shock: Code(s): R57.9 - Shock, unspecified Status: Acute Assessment and Plan: * etiology not clear -- sepsis versus cardiogenic versus other? * no obvious source of infection * normal WBC * CT scan with any acute pathology * follow culture data * on antibiotics * continue vasopressor therapy to maitain MAP * repeat Echo (4) Acute hyperkalemia: Code(s): E87.5 - Hyperkalemia Status: Acute Assessment and Plan: * s/p insulin, dextrose and lokelma in the ER * Calcium and bicarb given in the ICU * follow trend of potassium levels (5) Metabolic acidosis: Code(s): E87.20 - Acidosis, unspecified Status: Acute Assessment and Plan: * acute on chronic * worsened by XOCHITL/ARF * s/p IV bicarb pushes * started on oral biarbonate * consider bicarb gtt depending on trend and volume status (6) NSTEMI (non-ST elevated myocardial infarction): Code(s): I21.4 - Non-ST elevation (NSTEMI) myocardial infarction Status: Acute Assessment and Plan: * symptoms of chest pain on admission * elevated troponins but flat trend * due to hypotension versus valvular heart disease (known hx of acortic stenosis) * Cardiolgy recommendations noted * repeat Echo ordered * follow troponins * anticoagulation on hold due to anemia and thrombocytopenia along with possble need for procedures Long extensive discussion (greater than 20 min) with the patient regarding his a cute kidney injury/ acute renal failure on top of his chronic kidney disease in association with hyperkalemia and metabolic acidosis. I voiced my concerns that he may require renal replacement therapy / dialysis again as he has in the past which the patient voiced understanding to. We will continue current aggressive therapy as already outlined in the hopes that his renal function will improve. I will continue to follow the patient with you while he remains hospitalized and make further recommendations as deemed necessary. Thank you for allowing me to participate in the care of this patient. History of Present Illness Reason for Consult Consult date: 05/22/24 Reason for consult: acute renal failure (on chronic kidney disease) Chief Complaint Chief complaint: Kidney failure History of Present Illness Narrative: The patient is a 59-year-old male with extensive past medical history as outlined below who presented to [facility]
--- NOTE | 2024-05-22 16:18 | PM.CNNEP ---
Assessment and Plan Assessment and plan (1) XOCHITL (acute kidney injury): Code(s): N17.9 - Acute kidney failure, unspecified Status: Acute Assessment and Plan: as noted by labs on admission etiology: hypotension/hemodynamic instability possible sepsis/infection(?) prerena factors (?) cardiac issues/NSTEMI (?) other (?) follow on urine studies and renal ultrasound medical management for hyperkalemia started on oral sodium bicarbonate (consider bicarb gtt if volume status allows) remains at risk for needing [employer]/dialysis again follow repeat labs and UOP (2) Chronic kidney disease, stage IV (severe): Code(s): N18.4 - Chronic kidney disease, stage 4 (severe) Status: Chronic Assessment and Plan: baseline creatinine has been runnint ~ 3.3 - 3.8mg/dl recently felt to be secondary hypertension, vascular disease, previous obesity, COURTNEY, and left overs from his previous bouts of XOCHITL/ARF still has issues with metabolic acidosis and hyperkalemia at baseline requiring ongoing medical management (3) Shock: Code(s): R57.9 - Shock, unspecified Status: Acute Assessment and Plan: etiology not clear -- sepsis versus cardiogenic versus other? no obvious source of infection normal WBC CT scan with any acute pathology follow culture data on antibiotics continue vasopressor therapy to maitain MAP repeat Echo (4) Acute hyperkalemia: Code(s): E87.5 - Hyperkalemia Status: Acute Assessment and Plan: s/p insulin, dextrose and lokelma in the ER Calcium and bicarb given in the ICU follow trend of potassium levels (5) Metabolic acidosis: Code(s): E87.20 - Acidosis, unspecified Status: Acute Assessment and Plan: acute on chronic worsened by XOCHITL/ARF s/p IV bicarb pushes started on oral biarbonate consider bicarb gtt depending on trend and volume status (6) NSTEMI (non-ST elevated myocardial infarction): Code(s): I21.4 - Non-ST elevation (NSTEMI) myocardial infarction Status: Acute Assessment and Plan: symptoms of chest pain on admission elevated troponins but flat trend due to hypotension versus valvular heart disease (known hx of acortic stenosis) Cardiolgy recommendations noted repeat Echo ordered follow troponins anticoagulation on hold due to anemia and thrombocytopenia along with possble need for procedures Long extensive discussion (greater than 20 min) with the patient regarding his acute kidney injury/ acute renal failure on top of his chronic kidney disease in association with hyperkalemia and metabolic acidosis. I voiced my concerns that he may require renal replacement therapy / dialysis again as he has in the past which the patient voiced understanding to. We will continue current aggressive therapy as already outlined in the hopes that his renal function will improve. I will continue to follow the patient with you while he remains hospitalized and make further recommendations as deemed necessary. Thank you for allowing me to participate in the care of this patient. History of Present Illness Reason for Consult Consult date: 05/22/24 Reason for consult: acute renal failure (on chronic kidney disease) Chief Complaint Chief complaint: Kidney failure History of Present Illness Narrative: The patient is a 59-year-old male with extensive past medical history as outlined below who presented to [facility] room via EMS due to complaints chest pain and shortness of breath. The patient was in his normal state of health when he went to bed yesterday evening but then was awakened from sleep at around 2:00 a.m. in the morning with central chest pain which he described as a throbbing sensation with radiation to both his arms, the right arm greater than left. Associated with the chest pain was some mild shortness of breath as well. These symptoms, he called 91
[2024-05-22] MEDS: SODIUM BICARBONATE TAB 650 MG TABLET 1300 MG PO (16:43)
[2024-05-22 17:12] LABS: Reticulocyte Hemoglobin Conten 25.1 pg (28.2-36.6); Reticulocyte Percent 0.31 % (0.7-4.3); Reticulocytes Absolute 0.01 10^6/uL (0.02-0.10)
[2024-05-22 17:14] LABS: Creatine Kinase 31 U/L (55-170); Fibrinogen 482 mg/dl (215-510)
[2024-05-22 17:16] LABS: Cholesterol 64 mg/dL (0-200); HDL Direct 12 mg/dL; Triglycerides 163 mg/dL (<150)
[2024-05-22 17:17] LABS: Lactate Dehydrogenase 116 U/L (120-246)
[2024-05-22 17:18] LABS: Anion Gap 12 mmol/L (4-12); Blood Urea Nitrogen 101 mg/dL (9-20); Calcium 7.6 mg/dL (8.4-10.2); Carbon Dioxide 9 mmol/L (22-30); Chloride 109 mmol/L (98-107); Estimated CRCL calculation 16 ml/min; Estimated Glomerular Filt Rate 11; Glucose 103 mg/dL (65-110); Potassium 5.8 mmol/L (3.4-5.0); Sodium 130 mmol/L (137-145)
[2024-05-22 17:22] LABS: Prealbumin 7.5 mg/dL (17.6-36.0)
[2024-05-22 17:30] LABS: Creatinine Urine 72.1 mg/dL
[2024-05-22 17:31] LABS: Creatinine Urine 73.4 mg/dL; Total Protein Urine Random 85 mg/dL; Ur Ttl Prot Creatinine Ratio 1.16 mg/mg (0-0.20)
[2024-05-22 17:34] LABS: Sodium Urine Random 19 meq/L
[2024-05-22 17:34] LABS: LDL Cholesterol Direct < 30 mg/dL
[2024-05-22 17:35] LABS: Iron 13 ug/dL (49-181)
[2024-05-22 17:38] LABS: D Dimer 2.86 ug/mL (<0.48)
[2024-05-22 17:41] LABS: Erythrocyte Sedimentation Rate 77 mm/hr (0-20)
[2024-05-22 17:43] LABS: Add Urine Microscopic? YES; Appearance Urine Clear (Clear); Bacteria Urine None Seen /hpf; Bilirubin Urine Negative (Negative); Blood Urine Negative (Negative); Color Urine Yellow (Yellow); Glucose Urine UA Negative (Negative); Ketones Urine Negative (Negative); Leukocyte Esterase Ur Trace LEU/UL (Negative); Need Manual Microscopic Reviewed; Nitrate Urine Negative (Negative); Protein Urine 2+ mg/dL (Negative); RBC Urine 0-2 /hpf (0-2); Specific Grav Ur 1.013 (1.001-1.035); Squamous Epithelial Cell Urine Occasional /hpf (Few); Urobilinogen Urine 0.2 mg/dL (<2.0); WBC Urine 0-5 /hpf (0-3)
[2024-05-22 17:45] LABS: Percent Iron Saturation 7 % (20-50)
[2024-05-22] MEDS: SODIUM BICARBONATE 8.4% 50 MEQ/50 ML SYRINGE 100 MEQ IV PUSH (17:57)
[2024-05-22 18:09] LABS: Glucose Point of Care 89 mg/dl (65-105)
[2024-05-22 18:27] LABS: Folic Acid 5.2 ng/mL (2.76->20)
[2024-05-22 18:54] LABS: Eosinophil Urine None Seen % (None Seen); Urine Eos QC 2nd Tech Confirmed
[2024-05-22] MEDS: PANTOPRAZOLE SODIUM IV 40 MG VIAL IV PUSH (20:59)
[2024-05-22] MEDS: ACETAMINOPHEN 325 MG TABLET 650 MG PO (21:05)
[2024-05-22] MEDS: CALCIUM GLUC 1,000 MG/NS 100ML 1,000 MG/100 ML BAG 200 MG IVPB (21:13)
[2024-05-22 22:59] LABS: Anion Gap 12 mmol/L (4-12); Blood Urea Nitrogen 101 mg/dL (9-20); Calcium 7.6 mg/dL (8.4-10.2); Carbon Dioxide 13 mmol/L (22-30); Chloride 108 mmol/L (98-107); Estimated CRCL calculation 15 ml/min; Estimated Glomerular Filt Rate 10; Glucose 69 mg/dL (65-110); Potassium 4.7 mmol/L (3.4-5.0); Sodium 133 mmol/L (137-145)
[2024-05-22 23:59] LABS: Glucose Point of Care 72 mg/dl (65-105)
[2024-05-23] VITALS (23 sets, daily range): BP systolic 83–108; BP diastolic 54–73; PULSE 86–106; RESP 23–31; TEMP 37.1–37.8; O2SAT 94–100
[2024-05-23 04:46] LABS: Basophils Percent Auto 0.1 % (0.2-1.2); Eosinophils Percent Auto 0.1 % (0-4.4); Hematocrit 22.7 % (42.0-52.0); Hemoglobin 7.3 g/dL (14.0-18.0); Immature Granulocyte Absolute 0.08 K/mm3 (0.00-0.031); Lymphocytes Absolute Auto 0.65 K/mm3 (0.9-3.2); Lymphocytes Percent Auto 7.9 % (18.3-44.2); Mean Corpuscular HGB Conc 32.2 g/dl (32-36); Mean Corpuscular Hemoglobin 28.4 pg (26-34); Mean Corpuscular Volume 88.3 fl (80-100); Mean Platelet Volume 12.5 fl (7.4-10.4); Monocytes Absolute Auto 0.6 K/mm3 (0.1-0.6); Monocytes Percent Auto 6.7 % (2.6-8.5); Neutrophils Percent Auto 84.2 % (45.5-73.1); Platelet Count Result 77 k/mm3 (150-375); Red Blood Count 2.57 M/mm3 (4.6-6.20); Red Cell Distribution Width 17.2 % (11.5-14.5); White Blood Count 8.3 K/mm3 (4.5-10.0)
[2024-05-23 04:58] LABS: Alanine Aminotransferase 15 U/L (6-50); Albumin Level 2.4 g/dL (3.5-5.1); Alkaline Phosphatase 146 U/L (38-126); Anion Gap 14 mmol/L (4-12); Aspartate Amino Transferase 21 U/L (17-59); Bilirubin,Total 0.6 mg/dL (0.2-1.3); Blood Urea Nitrogen 106 mg/dL (9-20); Calcium 7.6 mg/dL (8.4-10.2); Carbon Dioxide 11 mmol/L (22-30); Chloride 106 mmol/L (98-107); Estimated CRCL calculation 13 ml/min; Estimated Glomerular Filt Rate 10; Glucose 83 mg/dL (65-110); Magnesium 1.9 mg/dL (1.6-2.3); Potassium 5.2 mmol/L (3.4-5.0); Sodium 131 mmol/L (137-145)
[2024-05-23 05:12] LABS: Anisocytosis 1+; Burr Cells 1+; Ovalocytes 1+; Platelet Estimate Decreased (Adequate); Schistocytes None Seen
[2024-05-23] MEDS: DEXTROSE 50% 25 GM/50 ML SYRINGE IV PUSH (06:31)
[2024-05-23] MEDS: CALCIUM GLUCONATE 1,000 MG/10 ML VIAL 1000 MG IV PUSH (06:31)
[2024-05-23] MEDS: SODIUM BICARBONATE 8.4% 50 MEQ/50 ML SYRINGE IV PUSH (06:31)
[2024-05-23] MEDS: INSULIN HUMAN REGULAR (*BKC) 100 UNITS/ML 10 UNITS IV PUSH (06:31)
[2024-05-23] MEDS: SODIUM BICARBONATE TAB 650 MG TABLET 1300 MG PO ×2 (08:18→17:43)
[2024-05-23] MEDS: PANTOPRAZOLE SODIUM IV 40 MG VIAL IV PUSH ×2 (08:18→20:53)
[2024-05-23] MEDS: SODIUM ZIRCONIUM CYCLOSILICATE 10 GM POWD.PACK PO ×2 (08:19→17:43)
[2024-05-23] MEDS: MIDODRINE HCL 10 MG TABLET PO ×3 (08:21→17:43)
[2024-05-23] MEDS: ALBUMIN HUMAN 5% 250 ML IV CONT (08:54)
--- NOTE | 2024-05-23 08:56 | WPDINTPN ---
Progress Note: A&P Assessment and Plan (1) Shock: Code(s): R57.9 - Shock, unspecified Status: Acute Assessment and Plan: Shock secondary to sepsis versus cardiogenic. Patient also has evidence of cirrhosis No obvious symptoms suggestive of infection. His WBC was normal, CT scan of chest abdomen pelvis also does not show any source UA was unremarkable but his procalcitonin level was elevated Patient is on empiric vancomycin and cefepime will be continued for now His blood cultures are growing Gram-negative rods Continue Levophed titration Patient states 3 L IV fluid bolus and further IV fluids were held at the time of admission Check echocardiogram to evaluate his aortic valve and ventricular function Will give albumin (2) NSTEMI (non-ST elevated myocardial infarction): Code(s): I21.4 - Non-ST elevation (NSTEMI) myocardial infarction Status: Acute Assessment and Plan: Patient presented with chest pain which could be cardiac in etiology. Mild elevated troponin but flat curve Pain could be secondary to poor cardiac perfusion from hypotension and aortic stenosis EKG reviewed Patient evaluated by Cardiology Chest pain resolved after improvement in blood pressure Echo ordered Serial troponin Anticoagulation held due to anemia and possibility of needing invasive procedures (3) Severe aortic stenosis: Code(s): I35.0 - Nonrheumatic aortic (valve) stenosis Status: Acute Assessment and Plan: Echo 11/19 Summary 1. Complete two-dimensional, color flow and Doppler transthoracic echocardiogram is performed. 2. Left ventricular chamber dimension is normal. 3. Left ventricular systolic function is normal, estimated at 65-70%. 4. There is moderately increased left ventricular wall thickness. 5. The left ventricular diastolic function is grade I diastolic dysfunction. 6. Right ventricular systolic function is normal. 7. Left atrial chamber dimension is mildly enlarged. 8. There is severe aortic valve calcification. 9. There is severe aortic valve stenosis with a peak velocity of 474 cm/s, mean gradient of 56 mmHg, and aortic valve area of 1.3 cm2. 10. The mitral valve has thickened leaflets. 11. The mitral valve annulus is moderately calcified. 12. There is trace mitral valve regurgitation. 13. There is moderate tricuspid valve regurgitation. 14. There is mild pulmonic regurgitation. 15. Dilated inferior vena cava with <50% collapse upon inspiration consistent with elevated right atrial pressure, 15 mmHg. 16. Pulmonary hypertension with estimated PASP 64mmHg. Cardiology consulted Repeat echo ordered (4) Xnrkt-rn-dxycoyx kidney injury: Code(s): N17.9 - Acute kidney failure, unspecified; N18.9 - Chronic kidney disease, unspecified Status: Acute Assessment and Plan: Patient developed acute kidney injury in October of 2022 and was started on hemodialysis. A tunneled dialysis catheter was placed. He continued dialysis did February of 2023 when he was weaned off. His baseline creatinine is in 3s He presented with creatinine around 6 which shows acute worsening which could be from hypotension CT scan does not show any obstruction Nephrology consult Treatment of hyperkalemia and acidosis as below He may need dialysis again Monitor urine output electrolytes and creatinine Mendoza catheter placed difficulty urinating (5) Metabolic acidosis: Code(s): E87.20 - Acidosis, unspecified Status: Acute Assessment and Plan: Bicarb ordered (6) Acute hyperkalemia: Code(s): E87.5 - Hyperkalemia Status: Acute Assessment and Plan: Patient received insulin, dextrose and Lokelma in the ER and potassium improved K 5.2 this morning and patient received additional insulin and D50 lokelma is ordered Repeat BMP has been ordered (7) Anemia: Code(s): D64.9 - Anemia, unspecified Status: Acute Assessment and Plan: Iron pa
--- NOTE | 2024-05-23 10:20 | PM.PNNEP ---
Progress Note: A&P Assessment and Plan (1) XOCHITL (acute kidney injury): Code(s): N17.9 - Acute kidney failure, unspecified Status: Acute Assessment and Plan: as noted by labs on admission etiology - several possibilities: hypotension/hemodynamic instability possible sepsis/infection (+ bacteremia) prerenal factors cardiac issues/NSTEMI other (?) evaluation to date: renal ultrasound pending no evidence of obstruction on admission CT scan urine electrolytes pre-renal urine eosinophils negative CPK low normal mild proteinuria noted ongoing medical management for hyperkalemia on oral sodium bicarbonate (consider bicarb gtt if volume status allows) 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 at 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 for 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 again follow repeat labs and UOP (2) Chronic kidney disease, stage IV (severe): Code(s): N18.4 - Chronic kidney disease, stage 4 (severe) Status: Chronic Assessment and Plan: baseline creatinine has been runnint ~ 3.3 - 3.8mg/dl recently felt to be secondary hypertension, vascular disease, previous obesity, COURTNEY, and left overs from his previous bouts of XOCHITL/ARF still has issues with metabolic acidosis and hyperkalemia at baseline requiring ongoing medical management (3) Septic shock: Code(s): A41.9 - Sepsis, unspecified organism; R65.21 - Severe sepsis with septic shock Status: Acute Assessment and Plan: noted blood culture results - GNB source not clear normal WBC CT scan with any acute pathology follow repeat culture data on antibiotics continue vasopressor therapy to maintain MAP (4) Acute hyperkalemia: Code(s): E87.5 - Hyperkalemia Status: Acute Assessment and Plan: s/p insulin, dextrose and lokelma in the ER calcium and bicarb given in the ICU continue medical management PRN follow trend of potassium levels (5) Metabolic acidosis: Code(s): E87.20 - Acidosis, unspecified Status: Acute Assessment and Plan: acute on chronic worsened by XOCHITL/ARF s/p IV bicarb pushes started on oral biarbonate consider bicarb gtt depending on trend and volume status (6) NSTEMI (non-ST elevated myocardial infarction): Code(s): I21.4 - Non-ST elevation (NSTEMI) myocardial infarction Status: Acute Assessment and Plan: symptoms of chest pain on admission elevated troponins but flat trend due to hypotension versus valvular heart disease (known hx of acortic stenosis) Cardiolgy recommendations noted repeat Echo ordered follow troponins anticoagulation on hold due to anemia and thrombocytopenia along with possble need for procedures Will continue to follow. Subjective Date/time seen: 05/23/24 10:20 Interval history: Follow-up for acute kidney injury/acute renal failure on chronic kidney disease. Resting comfortably at the time of my visit; other than fatigue/weakness, he has no other acute complaints; remains on low dose levophed to maintain MAP; no real significant change in renal function/creatinine but noted increased urine output after miranda catheter placement yesterday; started on midodrine therapy and results of blood cultures noted. Exam Narrative: General: WD/WN Caucasina male in NAD Heart: normal S1 and S2; no rub Lungs: a few scattered wheezes noted Abdomen: soft, nontender, nondistended, positive bowel sounds Extremities: no cyanosis or clubbing; no edema Skin: warm and dry Objective Data Vital Signs Vital Signs: Vital Signs Temp Pulse Resp BP Pulse Ox O2 Del Method 05/23/24 10:00 99.5 F 95 27 H 87/54 L 99 05/23/24 10:00 95 05/23/24 09:00 92 108/66 05/23/24 08:30 93 99/61 L 05/23/24 07:30 90 101/66 05/23/24 08:00 90 101/60 05/23/24 08:00 99.3 F 97 25 H 90/59 L 96 05/23/24 08:00 90 24 H 97 Room Air 05/23/24 08:00 90 05/23/24 06:00 94 90/56 L 05/23/24 06:00 99.3 F
--- NOTE | 2024-05-23 10:20 | P.PNNP_ITS ---
Progress Note: A&P Assessment and Plan (1) XOCHITL (acute kidney injury): Code(s): N17.9 - Acute kidney failure, unspecified Status: Acute Assessment and Plan: * as noted by labs on admission * etiology - several possibilities: * hypotension/hemodynamic instability * possible sepsis/infection (+ bacteremia) * prerenal factors * cardiac issues/NSTEMI * other (?) * evaluation to date: * renal ultrasound pending * no evidence of obstruction on admission CT scan * urine electrolytes pre-renal * urine eosinophils negative * CPK low normal * mild proteinuria noted * ongoing medical management for hyperkalemia * on oral sodium bicarbonate (consider bicarb gtt if volume status allows) * remains at risk for needing BREAKER OPERATOR/dialysis again * follow repeat labs and UOP (2) Chronic kidney disease, stage IV (severe): Code(s): N18.4 - Chronic kidney disease, stage 4 (severe) Status: Chronic Assessment and Plan: * baseline creatinine has been runnint ~ 3.3 - 3.8mg/dl recently * felt to be secondary hypertension, vascular disease, previous obesity, COURTNEY, and left overs from his previous bouts of XOCHITL/ARF * still has issues with metabolic acidosis and hyperkalemia at baseline requiring ongoing medical management (3) Septic shock: Code(s): A41.9 - Sepsis, unspecified organism; R65.21 - Severe sepsis with septic shock Status: Acute Assessment and Plan: * noted blood culture results - GNB * source not clear * normal WBC * CT scan with any acute pathology * follow repeat culture data * on antibiotics * continue vasopressor therapy to maintain MAP (4) Acute hyperkalemia: Code(s): E87.5 - Hyperkalemia Status: Acute Assessment and Plan: * s/p insulin, dextrose and lokelma in the ER * calcium and bicarb given in the ICU * continue medical management PRN * follow trend of potassium levels (5) Metabolic acidosis: Code(s): E87.20 - Acidosis, unspecified Status: Acute Assessment and Plan: * acute on chronic * worsened by XOCHITL/ARF * s/p IV bicarb pushes * started on oral biarbonate * consider bicarb gtt depending on trend and volume status (6) NSTEMI (non-ST elevated myocardial infarction): Code(s): I21.4 - Non-ST elevation (NSTEMI) myocardial infarction Status: Acute Assessment and Plan: * symptoms of chest pain on admission * elevated troponins but flat trend * due to hypotension versus valvular heart disease (known hx of acortic stenosis) * Cardiolgy recommendations noted * repeat Echo ordered * follow troponins * anticoagulation on hold due to anemia and thrombocytopenia along with possble need for procedures Will continue to follow. Subjective Date/time seen: 05/23/24 10:20 Interval history: Follow-up for acute kidney injury/acute renal failure on chronic kidney disease. Resting comfortably at the time of my visit; other than fatigue/weakness, he has no other acute complaints; remains on low dose levophed to maintain MAP; no real significant change in renal function/creatinine but noted increased urine output after miranda catheter placement yesterday; started on midodrine therapy and results of blood cultures noted. Exam Narrative: General: WD/WN Caucasina male in NAD Heart: normal S1 and S2; no rub Lungs: a few scattered wheezes noted Abdomen: soft, nontender, nondistended, positive bowel sounds Extremities: no cyanosis or clubbing; n
[2024-05-23 10:36] LABS: Vancomycin Random 10.2 ug/mL (10-20)
[2024-05-23] MEDS: ALBUMIN HUMAN 25% 25 GM/100 ML 100 ML IVPB ×2 (11:40→17:43)
--- NOTE | 2024-05-23 11:43 | WPDURCON ---
Assessment and Plan Assessment and plan (1) Scrotal hematoma: Code(s): S30.22XA - Contusion of scrotum and testes, initial encounter Status: Acute Assessment and Plan: This scrotal hematoma/seroma has been present since 11/20 and most likely since his hernia repair. Unusual presentation with this E coli sepsis and no obvious source. Clinical exam does not have the appearance of infection in the scrotal area. If anything this has decreased in size from October of this year. He is afebrile with a normal white count. At this point time I would not do any intervention in the scrotal area. I am not sure that this is the source of his E coli in his blood. Urology Consult Note HPI Date Seen: 05/23/24 Time Seen: 11:44 Requesting Physician: Michael Freire MD Primary Care Provider: Nevaeh SepulvedaMD Consult Narrative Reason for consult: Left scrotal swelling Narrative: Chau Cho is a 59 year old male with history of cardiac disease as well as chronic kidney disease. Initially presented with chest pain. During his evaluation he was noted to have a 11 cm left scrotal mass consistent with either hematoma or seroma. Patient actually had a large inguinal hernia with bowel present which was fixed over at [facility] within the past 6-9 months. He actually even had another CT scan in October of this year which revealed this left scrotal hematoma/seroma to be 14 cm. He is scheduled to see a urologist at [facility] for this but does not recall the the reasoning. Were asked to see him as he has E coli in his blood although his white count is normal and he has been afebrile. Concern regarding this hematomas source. Patient denies any change in the hematoma clinically i.e. pain drainage swelling etc.. Review of Systems Review of Systems: All systems reviewed & are unremarkable except as noted in HPI and below PMFSH Past Medical History Medical History Chronic anemia Chronic kidney disease Cirrhosis of liver Complete heart block Status post pacemaker implantation. Diastolic dysfunction History of blood transfusion History of pneumothorax Hypertension Restless legs syndrome Tobacco dependence Vitamin D deficiency Surgical History Surgical History History of inguinal hernia repair (2004) History of permanent cardiac pacemaker placement For complete heart block. History of renal stent Pacemaker Family History Family History Other Cerebrovascular accident Heart disease Hypertension Social History Social History Social History: Surrogate medical decision maker: Dolores Cho, daughter ([phone]). Code status: Full code. Smoking packs per day: 0.5 Smoking cigarettes per day: 10.0 Years smoked: 20 Smoking pack-years: 10.00 Smoking status: Heavy tobacco smoker Tobacco type: cigars Additional smoking assessment comments: 4-5 cigars/month Alcohol intake: never Substance use: current Substance use type: marijuana Other substance usage details: Cannabis Gummy Unknown Dose but uses for pain/discomfort Do You Feel Safe in your Home?: Yes Lack of Transportation: YES Lack of Food: Never True Current Housing: I Have Housing Concerned About Future Housing: No Difficulty Paying Gas/Electric Bills: No Difficulty Paying for Meds: No Currently Unemployed: No Education: High School Diploma/GED Difficulty w/ Childcare or Family Care: No Living arrangements: with family Additional living arrangements comments: . Lives with daughter in [place]. Additional occupation/education comments: Disabled. Spiritual care concerns: No Meds Home Medications and Allergies Home Medications Medication Instructions
[2024-05-23 12:06] LABS: Anion Gap 12 mmol/L (4-12); Blood Urea Nitrogen 109 mg/dL (9-20); Calcium 7.5 mg/dL (8.4-10.2); Carbon Dioxide 15 mmol/L (22-30); Chloride 108 mmol/L (98-107); Estimated CRCL calculation 12 ml/min; Estimated Glomerular Filt Rate 9; Glucose 132 mg/dL (65-110); Potassium 4.6 mmol/L (3.4-5.0); Sodium 135 mmol/L (137-145)
[2024-05-23 12:13] LABS: Haptoglobin 241 mg/dL (43-212)
--- NOTE | 2024-05-23 14:22 | PM.PNCARD ---
Progress Note: A&P Assessment and Plan (1) Septic shock: Code(s): A41.9 - Sepsis, unspecified organism; R65.21 - Severe sepsis with septic shock Status: Acute Assessment and Plan: 4/4 blood cultures are positive for Gram negative bacilli. TTE shows small, mobile echodensity on the ventricular aspect of the mitral valve. Cannot rule out vegetation. There is mild to moderate mitral valve regurgitation. Severity of regurgitation may be underestimated due to eccentricity of the jet. Given the bacteremia and transthoracic echocardiogram findings, recommend VIGNESH for further evaluation. Discussed procedure with the patient, including indication for procedure, procedure details, risks vs benefits. Patient agreeable. Will tentatively plan for VIGNESH tomorrow. NPO at midnight. (2) Non-ST elevation myocardial infarction (NSTEMI): Code(s): I21.4 - Non-ST elevation (NSTEMI) myocardial infarction Status: Acute Assessment and Plan: Presented with an episode of chest pain with sudden onset. He does not have any known coronary artery disease. Initial troponin elevated at 0.864, subsequently 0.827, peak troponin of 1.090. He is in a ventricularly paced rhythm on EKG which makes interpretation not feasible. Cannot rule out underlying coronary artery disease, Troponin leak may be secondary to his acute on chronic renal insufficiency, hypotension / shock, and anemia. At the present time, he is not a candidate for coronary angiography because of anemia, thrombocytopenia, and renal function (though he may require dialysis nonetheless). (3) Acute on chronic kidney failure: Code(s): N17.9 - Acute kidney failure, unspecified; N18.9 - Chronic kidney disease, unspecified Status: Acute Assessment and Plan: Nephrology consulted, may need dialysis. (4) Scrotal hematoma: Code(s): S30.22XA - Contusion of scrotum and testes, initial encounter Status: Acute Assessment and Plan: Urology consulted. (5) Aortic stenosis: Code(s): I35.0 - Nonrheumatic aortic (valve) stenosis Status: Acute Assessment and Plan: TTE with moderate-severe . Plan Recommendations and plan discussed with Home Sales Service Professional. Subjective Date/time seen: 05/23/24 14:22 Interval history: Reason for visit: NSTEMI, aortic stenosis HPI: Chau Cho is a 59 year old male with chronic kidney disease (previously on dialysis, followed by Dr. Ramos), complete heart block (s/p Bio PPM in October,), and hypertension. He comes to the hospital with a chief complaint of chest pain which occurred this morning around 0330, waking him from sleep. Chest pain was associated with shortness of breath and radiated to his right arm. He was brought to the emergency department where he was found to be hypotensive and has been started on pressors. His initial workup is also significant for BUN/SCr 103/6.00, K+ 5.4, H/H 8.4/26.5, and initial troponin 0.864. At the time of this evaluation he reports no chest or arm pain, stating the pain subsided about 30 minutes ago. He remains hypotensive but blood pressure has improved with Norepi. Date of service 05/23: Feels ill. No chest pain. 12/01 blood cultures are positive for Gram negative bacilli. Review of Systems Review of Systems: All systems reviewed & are unremarkable except as noted in HPI and below (HPI) Exam Const: Other: Ill appearing male Eyes: General: appearance normal, both eyes and all related structures Sclera: sclerae normal Resp: Effort & Inspection: normal respiratory effort Cardio: Rate: regular rate Rhythm: regular rhythm Heart sounds: Murmur heart sound present systolic Neuro: Speech: normal speech Psych: Mental Status: mental status grossly normal Affect: normal affect Objective Data Vital Signs Vital Signs: Vital Signs - 24 hr 05/22/24 14:31 05/22/24 14:45 05/22/24 16:00 Temperature 36.8 C Pulse Rate 93 88 80 Respira
[2024-05-23] MEDS: CEFEPIME 1 GM/NS 50 ML 1 GM/50 ML BAG IVPB (15:11)
--- NOTE | 2024-05-23 15:56 | PM.IMPN ---
Progress Note: A&P Assessment and Plan (1) Shock: Code(s): R57.9 - Shock, unspecified Status: Acute Assessment and Plan: Patient remains hypotensive despite aggressive IV fluid rehydration and he has been started on norepinephrine. Differential diagnosis include septic shock (markedly elevated procalcitonin though no obvious source of infection; UA pending) versus cardiogenic shock (severe aortic stenosis on echo in spring 2022, non STEMI) versus distributive shock (evidence of cirrhosis on CT scan today). Received 3 L IV fluid bolus in the ED; titrate norepinephrine for a MAP of at least 65 and SBP > 95. Hold on further IV fluids given concern for developing pulmonary edema; continue NICOM. Continue empiric cefepime and vancomycin though no obvious source of infection; UA is pending. Blood cultures positive for Gram-negative rods ROBBI with small mobile echodensity on the ventricular aspect of the mitral valve. Robbi planned cardiology in a.m. (2) Non-ST elevation myocardial infarction (NSTEMI): Code(s): I21.4 - Non-ST elevation (NSTEMI) myocardial infarction Status: Acute Assessment and Plan: The patient was wakened from sleep this morning with chest pain and troponins have been elevated but flat. Differential diagnosis includes true non STEMI, type 2 non STEMI related to poor cardiac perfusion from hypotension and/or aortic stenosis. Pulmonary embolism seems less likely. He is without chest pain at this time. Cardiology has been consulted and their recommendations are appreciated. Anticoagulation held due to anemia/thrombocytopenia and possible need for invasive procedures. Echocardiogram as above (3) Acute on chronic kidney failure: Code(s): N17.9 - Acute kidney failure, unspecified; N18.9 - Chronic kidney disease, unspecified Status: Acute Assessment and Plan: Patient has chronic kidney disease (creatinine in the threes) and required temporary dialysis between October and February of 2023. He presents with acute on chronic kidney injury of unclear etiology. Differential diagnosis include hypoperfusion from hypotension and/or aortic stenosis, possible ATN from sepsis, verses other. CT scan was without evidence of obstruction. Mendoza catheter inserted for strict I/O. Renally dose all medications and avoid nephrotoxic agents. Nephrology on board (4) Metabolic acidosis: Code(s): E87.20 - Acidosis, unspecified Status: Acute Assessment and Plan: Metabolic acidosis is likely related to renal failure. Lactic acid level was within normal limits. Received 3 L normal saline in the ED, hold further fluids due to concerns for pulmonary edema. Start sodium bicarbonate 1300 mg b.i.d.. (5) Electrolyte abnormality: Code(s): E87.8 - Other disorders of electrolyte and fluid balance, not elsewhere classified Status: Acute Assessment and Plan: He has several electrolyte abnormalities including hyperkalemia and hypocalcemia. Replace and monitor (6) Severe aortic stenosis: Code(s): I35.0 - Nonrheumatic aortic (valve) stenosis Status: Acute Assessment and Plan: Echocardiogram in October 2022 showed severe aortic stenosis with a valve area of 1.3 cm2. Repeat echocardiogram has been ordered and is pending. Cardiology consulted and their recommendations are appreciated. (7) Chronic anemia: Code(s): D64.9 - Anemia, unspecified Status: Acute Assessment and Plan: Hemoglobin is between 11 and 12 at baseline with mild thrombocytopenia. Hemoglobin today is 8.4 with platelet count of 69k. (8) Thrombocytopenia: Code(s): D69.6 - Thrombocytopenia, unspecified Status: Acute Assessment and Plan: See (9) Cirrhosis of liver: Code(s): K74.60 - Unspecified cirrhosis of liver Status: Acute Assessment and Plan: CT scan today showed evidence of cirrhosis of the liver with portal venous hyper
[2024-05-23] MEDS: CENTRAL LINE FLUSH 10 ML IV PUSH (20:53)
[2024-05-23] MEDS: ACETAMINOPHEN 325 MG TABLET 650 MG PO (20:53)
[2024-05-24] VITALS (38 sets, daily range): BP systolic 97–124; BP diastolic 58–85; PULSE 74–96; RESP 21–29; TEMP 36.5–38.2; O2SAT 93–100
[2024-05-24] MEDS: ALBUMIN HUMAN 25% 25 GM/100 ML 100 ML IVPB ×2 (00:18→05:23)
[2024-05-24 05:23] LABS: Basophils Percent Auto 0.1 % (0.2-1.2); Eosinophils Percent Auto 0.4 % (0-4.4); Immature Granulocyte Absolute 0.04 K/mm3 (0.00-0.031); Immature Granulocyte Percent A 0.6 % (0-0.5); Immature Platelet Fraction Pct 2.8 % (0.9-11.2); Mean Corpuscular HGB Conc 32.7 g/dl (32-36); Mean Corpuscular Hemoglobin 28.6 pg (26-34); Mean Corpuscular Volume 87.4 fl (80-100); Mean Platelet Volume 12.4 fl (7.4-10.4); Monocytes Absolute Auto 0.4 K/mm3 (0.1-0.6); Monocytes Percent Auto 6.1 % (2.6-8.5); Neutrophils Absolute Auto 5.4 K/mm3 (1.3-6.7); Neutrophils Percent Auto 80.8 % (45.5-73.1); Platelet Count Result 91 k/mm3 (150-375); Red Blood Count 2.31 M/mm3 (4.6-6.20); Red Cell Distribution Width 17.2 % (11.5-14.5); White Blood Count 6.7 K/mm3 (4.5-10.0)
[2024-05-24 05:31] LABS: Potassium 4.5 mmol/L (3.4-5.0)
[2024-05-24 05:40] LABS: Alanine Aminotransferase 11 U/L (6-50); Albumin Level 2.7 g/dL (3.5-5.1); Alkaline Phosphatase 117 U/L (38-126); Anion Gap 16 mmol/L (4-12); Aspartate Amino Transferase 15 U/L (17-59); Bilirubin,Total 0.6 mg/dL (0.2-1.3); Blood Urea Nitrogen 110 mg/dL (9-20); Calcium 7.7 mg/dL (8.4-10.2); Carbon Dioxide 13 mmol/L (22-30); Chloride 106 mmol/L (98-107); Estimated CRCL calculation 11 ml/min; Estimated Glomerular Filt Rate 8; Glucose 110 mg/dL (65-110); Sodium 135 mmol/L (137-145)
[2024-05-24] MEDS: CENTRAL LINE FLUSH 10 ML IV PUSH (05:54)
[2024-05-24 05:59] LABS: Hematocrit 20.2 % (42.0-52.0); Hemoglobin 6.6 g/dL (14.0-18.0)
[2024-05-24 06:00] LABS: Anisocytosis 1+; Hypochromasia 1+; Ovalocytes 1+; Platelet Estimate Decreased (Adequate); Schistocytes None Seen
[2024-05-24 06:16] LABS: Hepatitis B Surface Antigen Negative (Negative)
[2024-05-24 06:33] LABS: Hepatitis B Surface Anti Res Negative
--- NOTE | 2024-05-24 08:21 | WPDINTPN ---
Progress Note: A&P Assessment and Plan (1) Shock: Code(s): R57.9 - Shock, unspecified Status: Acute Assessment and Plan: Shock secondary to sepsis versus cardiogenic. Patient also has evidence of cirrhosis No obvious symptoms suggestive of infection on presentation. His WBC was normal, CT scan of chest abdomen pelvis also does not show any source UA was unremarkable but his procalcitonin level was elevated Patient was started on empiric vancomycin and cefepime. His blood cultures are growing Gram-negative rods. Vancomycin discontinued continued cefepime Levophed has been weaned off and he is off of 5 Echocardiogram was done and shows small mobile echodensity on the ventricular aspect of the mitral valve. Cardiology planning to do VIGNESH to rule out vegetation Repeat blood cultures ordered Patient has a large scrotal hematoma which although is decreased in size as compared to last CT scan could be the source of bacteremia. Patient evaluated by Urology no intervention recommended at this time (2) NSTEMI (non-ST elevated myocardial infarction): Code(s): I21.4 - Non-ST elevation (NSTEMI) myocardial infarction Status: Acute Assessment and Plan: Patient presented with chest pain which could be cardiac in etiology. Mild elevated troponin but flat curve Pain could be secondary to poor cardiac perfusion from hypotension and aortic stenosis EKG reviewed Patient evaluated by Cardiology Chest pain resolved after improvement in blood pressure Echo reviewed as below Serial troponin reviewed Anticoagulation held due to anemia and possibility of needing invasive procedures Echo Summary 1. Left ventricular chamber dimension is normal. 2. Left ventricular systolic function is normal, estimated at 55-60%. 3. The left ventricular diastolic function is grade I diastolic dysfunction. 4. Right ventricular systolic function is normal. 5. Left atrial chamber dimension is mildly enlarged. 6. There is severe aortic valve calcification. 7. There is moderate to severe aortic valve stenosis with a peak velocity of 388.85 cm/s, mean gradient of 42 mmHg, and aortic valve area of 1.19 cm2. 8. The mitral valve has thickened leaflets. 9. The mitral valve annulus is severely calcified. 10. Small, mobile echodensity on the ventricular aspect of the mitral valve. Cannot rule out vegetation. 11. There is mild to moderate mitral valve regurgitation. Severity of regurgitation may be underestimated due to eccentricity of the jet. 12. There is trivial pericardial effusion (3) Severe aortic stenosis: Code(s): I35.0 - Nonrheumatic aortic (valve) stenosis Status: Acute Assessment and Plan: Echo was repeated results as above Cardiology consulted (4) Kdwss-vo-shylcbi kidney injury: Code(s): N17.9 - Acute kidney failure, unspecified; N18.9 - Chronic kidney disease, unspecified Status: Acute Assessment and Plan: Patient developed acute kidney injury in October of 2022 and was started on hemodialysis. A tunneled dialysis catheter was placed. He continued dialysis did February of 2023 when he was weaned off. His baseline creatinine is in 3s He presented with creatinine around 6 which shows acute worsening which could be from hypotension CT scan does not show any obstruction Nephrology following Treatment of hyperkalemia and acidosis as below His creatinine has not improved and actually has mildly worsened. He appears to be having uremic encephalopathy. Discussed with nephrology and will proceed with dialysis. Monitor urine output electrolytes and creatinine Mendoza catheter placed for difficulty urinating and urine output is low (5) Metabolic acidosis: Code(s): E87.20 - Acidosis, unspecified Status: Acute Assessment and Plan: Bicarb ordered (6) Acute hyperkalemia: Code(s): E87.5 - Hyperkalemia Status: Acute Assessment and Plan: Improved with treatment.
[2024-05-24] MEDS: SODIUM CHLORIDE 0.9% IV 250 ML 30 ML IV CONT (09:16)
[2024-05-24] MEDS: PANTOPRAZOLE SODIUM IV 40 MG VIAL IV PUSH ×2 (09:16→21:03)
[2024-05-24] MEDS: SODIUM BICARBONATE TAB 650 MG TABLET 1300 MG PO ×2 (09:17→16:52)
[2024-05-24] MEDS: SODIUM ZIRCONIUM CYCLOSILICATE 10 GM POWD.PACK PO (09:17)
[2024-05-24] MEDS: MIDODRINE HCL 10 MG TABLET PO ×3 (09:17→16:53)
[2024-05-24 09:26] LABS: Ammonia < 9 umol/L (9-30)
[2024-05-24] MEDS: MORPHINE SULFATE (*CRX) 2 MG/ML INJ IV PUSH (09:32)
--- NOTE | 2024-05-24 10:16 | PM.IMPN ---
Progress Note: A&P Assessment and Plan (1) Shock: Code(s): R57.9 - Shock, unspecified Status: Acute Assessment and Plan: Shock secondary to sepsis versus cardiogenic. Patient also has evidence of cirrhosis No obvious symptoms suggestive of infection on presentation. His WBC was normal, CT scan of chest abdomen pelvis also does not show any source. UA was unremarkable but his procalcitonin level was elevated Patient has a large scrotal hematoma but decreased in size; could be the source of bacteremia. Urology no intervention recommended at this time Patient was started on empiric vancomycin and cefepime. BCx growing Gram-negative rods. Vancomycin discontinued continued cefepime Levophed has been weaned off Echo shows small mobile echodensity on the ventricular aspect of the mitral valve. Consider endocarditis Cardiology planning to do VIGNESH to rule out vegetation Repeat blood cultures Continue IV abx. Fevers last night so consider covering for ESBL. (2) NSTEMI (non-ST elevated myocardial infarction): Code(s): I21.4 - Non-ST elevation (NSTEMI) myocardial infarction Status: Acute Assessment and Plan: Patient presented with chest pain which could be cardiac in etiology. Mild elevated troponin but flat curve Pain could be secondary to poor cardiac perfusion from hypotension and aortic stenosis EKG reviewed Patient evaluated by Cardiology Chest pain resolved after improvement in blood pressure Echo Summary 1. Left ventricular chamber dimension is normal. 2. Left ventricular systolic function is normal, estimated at 55-60%. 3. The left ventricular diastolic function is grade I diastolic dysfunction. 4. Right ventricular systolic function is normal. 5. Left atrial chamber dimension is mildly enlarged. 6. There is severe aortic valve calcification. 7. There is moderate to severe aortic valve stenosis with a peak velocity of 388.85 cm/s, mean gradient of 42 mmHg, and aortic valve area of 1.19 cm2. 8. The mitral valve has thickened leaflets. 9. The mitral valve annulus is severely calcified. 10. Small, mobile echodensity on the ventricular aspect of the mitral valve. Cannot rule out vegetation. 11. There is mild to moderate mitral valve regurgitation. Severity of regurgitation may be underestimated due to eccentricity of the jet. 12. There is trivial pericardial effusion Serial troponin reviewed Anticoagulation held due to anemia and possibility of needing invasive procedures (3) Severe aortic stenosis: Code(s): I35.0 - Nonrheumatic aortic (valve) stenosis Status: Acute Assessment and Plan: There is moderate to severe aortic valve stenosis with a peak velocity of 388.85 cm/s, mean gradient of 42 mmHg, and aortic valve area of 1.19 cm2 by Echo. Cardiology aware (4) Yehbr-tx-svdwtwo kidney injury: Code(s): N17.9 - Acute kidney failure, unspecified; N18.9 - Chronic kidney disease, unspecified Status: Acute Assessment and Plan: Patient developed acute kidney injury in October of 2022 and was started on hemodialysis. A tunneled dialysis catheter was placed. He continued dialysis did February of 2023 when he was weaned off. His baseline creatinine is in 3s He presented with creatinine around 6 which shows acute worsening which could be from hypotension, anemia, sepsis and shock CT scan does not show any obstruction Nephrology following Treatment of hyperkalemia and acidosis as below His creatinine has not improved and actually is worsened. Concern for uremic encephalopathy. Discussed with nephrology and will proceed with dialysis. Monitor urine output electrolytes and creatinine Mendoza catheter placed for difficulty urinating and urine output is low (5) Metabolic acidosis: Code(s): E87.20 - Acidosis, unspecified Status: Acute Assessment and Plan: Bicarb ordered (6) Acute hyperkalemia: Code(s): E87.5 - Hyperkalemia
--- NOTE | 2024-05-24 10:22 | WPDPROCEDUR ---
Procedures Central Line Placement Right Femoral: Central Line Date: 05/24/24 Central Line Time: 09:45 Discussed w/ the patient/family/POA,the placement of a central venous catheter, including its clinical necessity/indication & associated potential risks, benifits and alternatives.: Yes The patient/family/POA understand(s) and acknowledge(s) the need to proceed with central venous catheter insertion as an important element of the patient's clinical management.: Yes Consent: Consent was obtained from patient's family for temporary dialysis catheter insertion. The risks and benefits were discussed by phone, including its clinical necessity/indication and associated potential risks and complications. The surrogate understand(s) and acknowledge(s) the need to proceed with temporary dialysis catheter insertion as an important element of the patient's clinical management. Time Out Performed: Yes Patient Position: supine Patient placed on monitor/pulse ox: Yes Provider Prep: mask, sterile gown, sterile gloves, Max. sterile barrier precautions, cap and hand hygiene with conventional soap/water or alcohol based hand rub Central line prep: Povidone-Iodine 1% Central line lumen inserted: triple Length (cm): 20 Depth of Insertion (cm): 20 Post Procedure: sutured in place, good blood return, all ports aspirated, flushed, capped, transparent dressing and aseptic technique maintained throughout procedure Patient tolerated procedure: well Complications: none Additional comments: Patient had a central line in place which was changed over a guidewire to a dialysis catheter with 3rd port. Right IJ spot was left for tunneled dialysis catheter insertion. Central line insertion on the left IJ was unsuccessful in the ER earlier in the course of hospitalization.
[2024-05-24 10:52] LABS: Chloride Rand Ur <20 mmol/L (32-290); Creatinine Random Urine 73 mg/dL (20-320)
[2024-05-24 11:30] LABS: Glucose Point of Care 114 mg/dl (65-105)
--- NOTE | 2024-05-24 11:39 | PM.PNCARD ---
Progress Note: A&P Assessment and Plan (1) Septic shock: Code(s): A41.9 - Sepsis, unspecified organism; R65.21 - Severe sepsis with septic shock Status: Acute Assessment and Plan: 12/01 blood cultures are positive for Gram negative bacilli. TTE shows small, mobile echodensity on the ventricular aspect of the mitral valve. Cannot rule out vegetation. There is mild to moderate mitral valve regurgitation. Severity of regurgitation may be underestimated due to eccentricity of the jet. Given the bacteremia and transthoracic echocardiogram findings, recommend VIGNESH for further evaluation. Discussed procedure with the patient, including indication for procedure, procedure details, risks vs benefits. Patient agreeable. Tentatively planned for VIGNESH on 05/24, however, as Hgb decreased down to 6.6 and is requiring blood transfusions, will hold off on VIGNESH for now until Hgb is stablized. (2) Non-ST elevation myocardial infarction (NSTEMI): Code(s): I21.4 - Non-ST elevation (NSTEMI) myocardial infarction Status: Acute Assessment and Plan: Presented with an episode of chest pain with sudden onset. He does not have any known coronary artery disease. Initial troponin elevated at 0.864, subsequently 0.827, peak troponin of 1.090. He is in a ventricularly paced rhythm on EKG which makes interpretation not feasible. Cannot rule out underlying coronary artery disease, Troponin leak may be secondary to his acute on chronic renal insufficiency, hypotension / shock, and anemia. At the present time, he is not a candidate for coronary angiography because of anemia, thrombocytopenia, and renal function (though he may require dialysis nonetheless). (3) Acute on chronic kidney failure: Code(s): N17.9 - Acute kidney failure, unspecified; N18.9 - Chronic kidney disease, unspecified Status: Acute Assessment and Plan: Nephrology consulted, may need dialysis. (4) Scrotal hematoma: Code(s): S30.22XA - Contusion of scrotum and testes, initial encounter Status: Acute Assessment and Plan: Urology consulted. Does not need surgery at this time. (5) Aortic stenosis: Code(s): I35.0 - Nonrheumatic aortic (valve) stenosis Status: Acute Assessment and Plan: TTE with moderate-severe . Plan Recommendations and plan discussed with Gate Supervisor. Subjective Date/time seen: 05/24/24 11:39 Interval history: Reason for visit: NSTEMI, aortic stenosis HPI: Chau Cho is a 59 year old male with chronic kidney disease (previously on dialysis, followed by Dr. Ramos), complete heart block (s/p Bio PPM in October,), and hypertension. He comes to the hospital with a chief complaint of chest pain which occurred this morning around 0330, waking him from sleep. Chest pain was associated with shortness of breath and radiated to his right arm. He was brought to the emergency department where he was found to be hypotensive and has been started on pressors. His initial workup is also significant for BUN/SCr 103/6.00, K+ 5.4, H/H 8.4/26.5, and initial troponin 0.864. At the time of this evaluation he reports no chest or arm pain, stating the pain subsided about 30 minutes ago. He remains hypotensive but blood pressure has improved with Norepi. Date of service 05/23: Feels ill. No chest pain. 4/4 blood cultures are positive for Gram negative bacilli. Date of service 05/24: Confused this morning. Hgb down to 6.6. Receiving blood transfusion. Review of Systems Review of Systems: All systems reviewed & are unremarkable except as noted in HPI and below (HPI) Exam Const: Other: Ill appearing male Eyes: General: appearance normal, both eyes and all related structures Sclera: sclerae normal Resp: Effort & Inspection: normal respiratory effort Cardio: Rate: regular rate Rhythm: regular rhythm Heart sounds: Murmur heart sound present systolic Neuro: Speech: normal speech Psych:
[2024-05-24 14:14] LABS: Osmolality, Urine 284 mOsm/kg (50-1200)
--- NOTE | 2024-05-24 14:15 | PM.PNNEP ---
Progress Note: A&P Assessment and Plan (1) XOCHITL (acute kidney injury): Code(s): N17.9 - Acute kidney failure, unspecified Status: Acute Assessment and Plan: as noted by labs on admission etiology - several possibilities: hypotension/hemodynamic instability possible sepsis/infection (+ bacteremia) prerenal factors cardiac issues/NSTEMI other (?) evaluation to date: renal ultrasound noted no evidence of obstruction on admission CT scan urine electrolytes pre-renal urine eosinophils negative CPK low normal mild proteinuria noted no critical electrolytes but has persistent acidosis along with signs/symptoms of possible uremia will initiated 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/dialysis today follow repeat labs and UOP (2) Chronic kidney disease, stage IV (severe): Code(s): N18.4 - Chronic kidney disease, stage 4 (severe) Status: Chronic Assessment and Plan: baseline creatinine has been runnint ~ 3.3 - 3.8mg/dl recently felt to be secondary hypertension, vascular disease, previous obesity, COURTNEY, and left overs from his previous bouts of XOCHITL/ARF still has hd issues with metabolic acidosis and hyperkalemia at baseline requiring ongoing medical management (3) Septic shock: Code(s): A41.9 - Sepsis, unspecified organism; R65.21 - Severe sepsis with septic shock Status: Acute Assessment and Plan: noted blood culture results - Klebs aerogenes (Enterobacter) source not clear normal WBC CT scan with any acute pathology follow repeat culture data on antibiotics follow trend of hemodynamics (4) Anemia: Code(s): D64.9 - Anemia, unspecified Status: Acute Assessment and Plan: as noted by H/H this AM PRBC transfusion today start Retacrit with dialysis treatment follow trend of H/H (5) Acute hyperkalemia: Code(s): E87.5 - Hyperkalemia Status: Acute Assessment and Plan: s/p insulin, dextrose and lokelma in the ER calcium and bicarb given in the ICU dialysis should help control follow trend of potassium levels (6) Metabolic acidosis: Code(s): E87.20 - Acidosis, unspecified Status: Acute Assessment and Plan: acute on chronic worsened by XOCHITL/ARF s/p IV bicarb pushes started on oral biarbonate dialysis should help to improve (7) NSTEMI (non-ST elevated myocardial infarction): Code(s): I21.4 - Non-ST elevation (NSTEMI) myocardial infarction Status: Acute Assessment and Plan: symptoms of chest pain on admission elevated troponins but flat trend due to hypotension versus valvular heart disease (known hx of acortic stenosis) Cardiolgy recommendations noted repeat Echo noted -- VIGNESH planned follow troponins anticoagulation on hold due to anemia and thrombocytopenia along with possible need for procedures Will continue to follow. Subjective Date/time seen: 05/24/24 14:15 Interval history: Follow-up for acute kidney injury/acute renal failure on chronic kidney disease. Renal function/creatinine worse with diminished urine output; noted confusion overnight and earlier this morning concerning for possible uremia; low H/H noted by AM labs as well; weaned off vasopressor support; femoral central line guidewire exchanged for triple lumen dialysis catheter earlier today; tolerating dialysis treatment at the time of my visit (seen on HD at 2:05PM). Exam Narrative: General: WD/WN Caucasina male in NAD Heart: normal S1 and S2; no rub Lungs: a few scattered wheezes noted Abdomen: soft, nontender, nondistended, positive bowel sounds Extremities: no cyanosis or clubbing; no edema Skin: warm and intact Objective Data Vital Signs Vital Signs: Vital Signs Temp Pulse Resp BP Pulse Ox O2 Del Method FiO2 05/24/24 14:15 77 108/68 05/24/24 14:00 98.9 F 77 21 H 103/68 96 05/24/24 14:00 77 05/24/24 13:41 75 110/65 05/24/24 13:
--- NOTE | 2024-05-24 14:15 | P.PNNP_ITS ---
Progress Note: A&P Assessment and Plan (1) XOCHITL (acute kidney injury): Code(s): N17.9 - Acute kidney failure, unspecified Status: Acute Assessment and Plan: * as noted by labs on admission * etiology - several possibilities: * hypotension/hemodynamic instability * possible sepsis/infection (+ bacteremia) * prerenal factors * cardiac issues/NSTEMI * other (?) * evaluation to date: * renal ultrasound noted * no evidence of obstruction on admission CT scan * urine electrolytes pre-renal * urine eosinophils negative * CPK low normal * mild proteinuria noted * no critical electrolytes but has persistent acidosis along with signs/symptoms of possible uremia * will initiated DIRECTOR OF CASINO MARKETING/dialysis today * follow repeat labs and UOP (2) Chronic kidney disease, stage IV (severe): Code(s): N18.4 - Chronic kidney disease, stage 4 (severe) Status: Chronic Assessment and Plan: * baseline creatinine has been runnint ~ 3.3 - 3.8mg/dl recently * felt to be secondary hypertension, vascular disease, previous obesity, COURTNEY, and left overs from his previous bouts of XOCHITL/ARF * still has hd issues with metabolic acidosis and hyperkalemia at baseline requiring ongoing medical management (3) Septic shock: Code(s): A41.9 - Sepsis, unspecified organism; R65.21 - Severe sepsis with septic shock Status: Acute Assessment and Plan: * noted blood culture results - Klebs aerogenes (Enterobacter) * source not clear * normal WBC * CT scan with any acute pathology * follow repeat culture data * on antibiotics * follow trend of hemodynamics (4) Anemia: Code(s): D64.9 - Anemia, unspecified Status: Acute Assessment and Plan: * as noted by H/H this AM * PRBC transfusion today * start Retacrit with dialysis treatment * follow trend of H/H (5) Acute hyperkalemia: Code(s): E87.5 - Hyperkalemia Status: Acute Assessment and Plan: * s/p insulin, dextrose and lokelma in the ER * calcium and bicarb given in the ICU * dialysis should help control * follow trend of potassium levels (6) Metabolic acidosis: Code(s): E87.20 - Acidosis, unspecified Status: Acute Assessment and Plan: * acute on chronic * worsened by XOCHITL/ARF * s/p IV bicarb pushes * started on oral biarbonate * dialysis should help to improve (7) NSTEMI (non-ST elevated myocardial infarction): Code(s): I21.4 - Non-ST elevation (NSTEMI) myocardial infarction Status: Acute Assessment and Plan: * symptoms of chest pain on admission * elevated troponins but flat trend * due to hypotension versus valvular heart disease (known hx of acortic stenosis) * Cardiolgy recommendations noted * repeat Echo noted -- VIGNESH planned * follow troponins * anticoagulation on hold due to anemia and thrombocytopenia along with possible need for procedures Will continue to follow. Subjective Date/time seen: 05/24/24 14:15 Interval history: Follow-up for acute kidney injury/acute renal failure on chronic kidney disease. Renal function/creatinine worse with diminished urine output; noted confusion overnight and earlier this morning concerning for possible uremia; low H/H noted by AM labs as well; weaned off vasopressor support; femoral central line guidewire exchanged for triple lumen dialysis catheter earlier today; tolerating dialysis treatment at the time of my visit (seen on HD at 2:05PM). Exam
[2024-05-24] MEDS: HEPARIN SODIUM 1,000 UNITS/ML VIAL 5000 UNITS (14:42)
[2024-05-24] MEDS: SODIUM CHLORIDE 0.9% IV 1,000 ML 999 ML IV CONT (14:42)
[2024-05-24] MEDS: EPOETIN ALFA-EPBX 10,000 UNITS/ML VIAL 10000 UNITS IV PUSH (14:43)
[2024-05-24] MEDS: CEFEPIME 1 GM/NS 50 ML 1 GM/50 ML BAG IVPB (16:52)
[2024-05-24] MEDS: ACETAMINOPHEN 325 MG TABLET 650 MG PO ×2 (18:26→21:03)
[2024-05-25] VITALS (33 sets, daily range): BP systolic 90–128; BP diastolic 62–80; PULSE 73–90; RESP 19–24; TEMP 36.5–37.6; O2SAT 90–98
[2024-05-25 05:04] LABS: Basophils Percent Auto 0.1 % (0.2-1.2); Eosinophils Percent Auto 0.4 % (0-4.4); Hematocrit 22.7 % (42.0-52.0); Hemoglobin 7.4 g/dL (14.0-18.0); Immature Granulocyte Absolute 0.06 K/mm3 (0.00-0.031); Immature Granulocyte Percent A 0.9 % (0-0.5); Lymphocytes Absolute Auto 0.84 K/mm3 (0.9-3.2); Lymphocytes Percent Auto 12.3 % (18.3-44.2); Mean Corpuscular HGB Conc 32.6 g/dl (32-36); Mean Corpuscular Hemoglobin 27.9 pg (26-34); Mean Corpuscular Volume 85.7 fl (80-100); Mean Platelet Volume 12.1 fl (7.4-10.4); Monocytes Absolute Auto 0.5 K/mm3 (0.1-0.6); Neutrophils Absolute Auto 5.4 K/mm3 (1.3-6.7); Neutrophils Percent Auto 79.3 % (45.5-73.1); Platelet Count Result 106 k/mm3 (150-375); Red Blood Count 2.65 M/mm3 (4.6-6.20); Red Cell Distribution Width 16.4 % (11.5-14.5); White Blood Count 6.8 K/mm3 (4.5-10.0)
[2024-05-25 05:16] LABS: Alanine Aminotransferase 12 U/L (6-50); Albumin Level 2.9 g/dL (3.5-5.1); Alkaline Phosphatase 116 U/L (38-126); Anion Gap 10 mmol/L (4-12); Aspartate Amino Transferase 17 U/L (17-59); Bilirubin,Total 0.8 mg/dL (0.2-1.3); Blood Urea Nitrogen 77 mg/dL (9-20); Calcium 7.4 mg/dL (8.4-10.2); Carbon Dioxide 24 mmol/L (22-30); Chloride 101 mmol/L (98-107); Estimated CRCL calculation 14 ml/min; Estimated Glomerular Filt Rate 10; Glucose 114 mg/dL (65-110); Magnesium 1.9 mg/dL (1.6-2.3); Potassium 4.1 mmol/L (3.4-5.0); Sodium 135 mmol/L (137-145)
[2024-05-25] MEDS: ONDANSETRON INJ 4 MG/2 ML VIAL IV PUSH ×2 (07:03→13:38)
[2024-05-25] MEDS: PANTOPRAZOLE SODIUM IV 40 MG VIAL IV PUSH ×2 (08:11→21:18)
[2024-05-25] MEDS: MIDODRINE HCL 10 MG TABLET PO ×2 (08:11→16:37)
--- NOTE | 2024-05-25 08:25 | PC.NURSE ---
Mass previously noted to be in the left scrotum now noted to be in the left mons pubis/inguinal area. Dr Vazquez notified and in to evaluate. Will continue to monitor.
--- NOTE | 2024-05-25 10:10 | PM.PNCARD ---
Progress Note: A&P Assessment and Plan (1) Septic shock: Code(s): A41.9 - Sepsis, unspecified organism; R65.21 - Severe sepsis with septic shock Status: Acute Assessment and Plan: / blood cultures from 05/22/2024 are positive for Klebs aerogenes. Repeat cultures from 05/24/2024 are pending. No longer requiring pressors. TTE shows small, mobile echodensity on the ventricular aspect of the mitral valve. Cannot rule out vegetation. There is mild to moderate mitral valve regurgitation. Severity of regurgitation may be underestimated due to eccentricity of the jet. Given the bacteremia and transthoracic echocardiogram findings, recommend VIGNESH for further evaluation. Discussed procedure with the patient, including indication for procedure, procedure details, risks vs benefits. Patient agreeable. Will proceed with VIGNESH today. (2) Non-ST elevation myocardial infarction (NSTEMI): Code(s): I21.4 - Non-ST elevation (NSTEMI) myocardial infarction Status: Acute Assessment and Plan: Presented with an episode of chest pain with sudden onset. Initial troponin elevated at 0.864, subsequently 0.827, peak troponin of 1.090. He is in a ventricularly paced rhythm on EKG which makes interpretation not feasible. Cannot rule out underlying coronary artery disease, Troponin leak may be secondary to his acute on chronic renal insufficiency, hypotension / shock, and anemia. He has not had any more chest pain since initial presentation. (3) Acute on chronic kidney failure: Code(s): N17.9 - Acute kidney failure, unspecified; N18.9 - Chronic kidney disease, unspecified Status: Acute Assessment and Plan: Nephrology consulted, started on dialysis 05/24. (4) Scrotal hematoma: Code(s): S30.22XA - Contusion of scrotum and testes, initial encounter Status: Acute Assessment and Plan: Urology consulted. Does not need surgery at this time. (5) Aortic stenosis: Code(s): I35.0 - Nonrheumatic aortic (valve) stenosis Status: Acute Assessment and Plan: TTE with moderate-severe . Will further evaluate during VIGNESH. Plan Recommendations and plan discussed with Sheet Rock Hanger. Subjective Date/time seen: 05/25/24 10:10 Interval history: Reason for visit: Bacteremia, NSTEMI, aortic stenosis HPI: Chau Cho is a 59 year old male with chronic kidney disease (previously on dialysis, followed by Dr. Ramos), complete heart block (s/p Bio PPM in October,), and hypertension. He comes to the hospital with a chief complaint of chest pain which occurred this morning around 0330, waking him from sleep. Chest pain was associated with shortness of breath and radiated to his right arm. He was brought to the emergency department where he was found to be hypotensive and has been started on pressors. His initial workup is also significant for BUN/SCr 103/6.00, K+ 5.4, H/H 8.4/26.5, and initial troponin 0.864. At the time of this evaluation he reports no chest or arm pain, stating the pain subsided about 30 minutes ago. He remains hypotensive but blood pressure has improved with Norepi. Date of service 05/23: Feels ill. No chest pain. 12/01 blood cultures are positive for Gram negative bacilli. Date of service 05/24: Confused this morning. Hgb down to 6.6. Receiving blood transfusion. Date of service 05/25: On dialysis this morning, tolerating well. Hgb stable this morning. Review of Systems Review of Systems: All systems reviewed & are unremarkable except as noted in HPI and below (HPI) Exam Const: Other: Ill appearing male Eyes: General: appearance normal, both eyes and all related structures Sclera: sclerae normal Resp: Effort & Inspection: normal respiratory effort Cardio: Rate: regular rate Rhythm: regular rhythm Heart sounds: Murmur heart sound present systolic Neuro: Speech: normal speech Psych: Mental Status: mental status grossly normal Affect: normal af
--- NOTE | 2024-05-25 10:43 | WPDMODSED ---
Moderate Sedation Note-Pt Data Patient Data Diagnosis: Bacteremia Present Complaint: Bacteremia Procedure to be performed/Plan: Transesophageal Echocardiogram Allergies Allergy/AdvReac Type Severity Reaction Status Date / Time morphine AdvReac Mild Agitated Verified 05/22/24 08:37 Home Medications Medication Instructions Recorded Confirmed Type cholecalciferol (vitamin D3) 50 100 mcg PO DAILY #60 caps 04/07/23 05/22/24 Rx mcg (2,000 unit) capsule sodium bicarbonate 650 mg tablet 650 mg PO BID #60 tabs 04/07/23 05/22/24 Rx sodium zirconium cyclosilicate 10 10 g PO DAILY PRN hyperkalemia 10/13/23 05/22/24 History gram oral powder packet (Lokelma) Current Medications: Active Medications Acetaminophen (Acetaminophen 325 Mg Tablet) 650 mg PO Q6H PRN PRN Reason: Mild Pain (1-3) or Fever Last Admin: 05/24/24 21:03 Dose: 650 mg Albuterol/Ipratropium (Ipratropium 0.5 Mg/Albuterol Sulfate 2.5 Mg Ampul.Neb 3 Ml) 3 ml INHALATION Q6HRT PRN PRN Reason: Wheezing Dextrose (Dextrose 50% 25 Gm/50 Ml Syringe) 12.5 gm IV PUSH PRN PRN; Protocol PRN Reason: Hypoglycemia Epoetin Parish-epbx (Epoetin Parish-Epbx 10,000 Units/Ml Vial) 10,000 units IV PUSH ONCE ONE Stop: 05/25/24 20:01 Glucagon (Glucagon For Inj 1 Mg Vial) 1 mg IM PRN PRN; Protocol PRN Reason: Hypoglycemia Glucose (Glucose Oral Gel 15 Gm Of Glucse In 37.5 Gm Tube) 15 gm PO PRN PRN; Protocol PRN Reason: Hypoglycemia Cefepime HCl (Maxipime 1 Gm/Ns 50 Ml) 1 gm in 50 mls @ 100 mls/hr IVPB Q24H ALLY Last Infusion: 05/24/24 23:03 Dose: Infused Dextrose (Dextrose 5% 1,000 Ml) 1,000 mls @ 100 mls/hr IVPB PRN PRN; Protocol PRN Reason: Hypoglycemia Albumin Human (Albutein) 50 mls @ 999 mls/hr IVPB Q10M PRN PRN Reason: HYPOTENSION Stop: 06/23/24 10:21 Midodrine (Midodrine Hcl 10 Mg Tablet) 10 mg PO TID [facility] Last Admin: 05/25/24 08:11 Dose: 10 mg Ondansetron HCl (Ondansetron Inj 4 Mg/2 Ml Vial) 4 mg IV PUSH Q6H PRN PRN Reason: Nausea And Vomiting Last Admin: 05/25/24 07:03 Dose: 4 mg Pantoprazole Sodium (Pantoprazole Sodium Iv 40 Mg Vial) 40 mg IV PUSH Q12HR [facility] Last Admin: 05/25/24 08:11 Dose: 40 mg Sodium Chloride (Central Line Flush) 20 ml IV PUSH PRN PRN PRN Reason: after blood draws Sodium Zirconium Cyclosilicate (Sodium Zirconium Cyclosilicate 10 Gm Powd.Pack) 10 gm PO BID@1000,1800 [facility] Last Admin: 05/24/24 09:17 Dose: 10 gm Sedation/Anesthesia: No previous sedation/anesthesia problems (including family history). [facility] Past Medical History Medical History Chronic anemia Chronic kidney disease Cirrhosis of liver Complete heart block Status post pacemaker implantation. Diastolic dysfunction History of blood transfusion History of pneumothorax Hypertension Restless legs syndrome Tobacco dependence Vitamin D deficiency Surgical History Surgical History History of inguinal hernia repair (2004) History of permanent cardiac pacemaker placement For complete heart block. History of renal stent Pacemaker Family History Family History Other Cerebrovascular accident Heart disease Hypertension Social History Social History Social History: Surrogate medical decision maker: Dolores Cho, daughter ([phone]). Code status: Full code. Smoking packs per day: 0.5 Smoking cigarettes per day: 10.0 Years smoked: 20 Smoking pack-years: 10.00 Smoking status: Heavy tobacco smoker Tobacco type: cigars Additional smoking assessment comments: 4-5 cigars/month Alcohol intake: never Substance use: current Substance use type: marijuana Other substance usage details: Cannabis Gummy Unknown Dose but uses for pain/discomfort Do You Feel Safe in your Home?: Yes Lack of Transportation: YES
--- NOTE | 2024-05-25 11:25 | P.PNNP_ITS ---
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/dialysis (due to issues related to uremia, acidosis, and mild hyperkalemia) * HD yesterday * HD today * likely plan HD tomorrow as well * follow trend of repeat labs and UOP to assess for potential renal recovery * however, he had advanced CKD at baseline (and has been on dialysis previously), so it is possible he maybe dialysis dependent (2) Chronic kidney disease, stage IV (severe): Code(s): N18.4 - Chronic kidney disease, stage 4 (severe) Status: Chronic Assessment and Plan: * baseline creatinine has been runnint ~ 3.3 - 3.8mg/dl recently * felt to be secondary hypertension, vascular disease, previous obesity, COURTNEY, and left overs from his previous bouts of XOCHITL/ARF * still has hd issues with metabolic acidosis and hyperkalemia at baseline requiring ongoing medical management (3) Septic shock: Code(s): A41.9 - Sepsis, unspecified organism; R65.21 - Severe sepsis with septic shock Status: Acute Assessment and Plan: * noted blood culture results - Klebs aerogenes (Enterobacter) * source not clear * normal WBC * CT scan with any acute pathology * follow repeat culture data (negative to date) * on antibiotics * noted plan for VIGNESH given TTE results * follow trend of hemodynamics (4) Anemia: Code(s): D64.9 - Anemia, unspecified Status: Acute Assessment and Plan: * as noted by H/H this AM * PRBC transfusion today * on Retacrit with dialysis treatment * follow trend of H/H (5) Acute hyperkalemia: Code(s): E87.5 - Hyperkalemia Status: Acute Assessment and Plan: * s/p insulin, dextrose and lokelma in the ER * calcium and bicarb given in the ICU on admission * dialysis should help control better * follow trend of potassium levels (6) Metabolic acidosis: Code(s): E87.20 - Acidosis, unspecified Status: Acute Assessment and Plan: * acute on chronic * worsened by XOCHITL/ARF * s/p IV bicarb pushes and oral bicarbonate * dialysis should help to improve/stabilize this issue (7) NSTEMI (non-ST elevated myocardial infarction): Code(s): I21.4 - Non-ST elevation (NSTEMI) myocardial infarction Status: Acute Assessment and Plan: * symptoms of chest pain on admission * elevated troponins but flat trend * due to hypotension versus valvular heart disease (known hx of acortic stenosis) * Cardiolgy recommendations noted * repeat Echo noted -- VIGNESH planned * follow troponins * anticoagulation on hold due to anemia and thrombocytopenia along with possible need for procedures Will continue to follow. Subjective Date/time seen: 05/25/24 11:25 Interval history: Follow-up for acute kidney injury/acute renal failure on chronic kidney disease. Tolerated dialysis treatment yesterday afternoon along with PRBC transfusion; tolerating dialysis treatme
--- NOTE | 2024-05-25 11:25 | PM.PNNEP ---
Progress Note: A&P Assessment and Plan (1) XOCHITL (acute kidney injury): Code(s): N17.9 - Acute kidney failure, unspecified Status: Acute Assessment and Plan: as noted by labs on admission etiology - several possibilities: hypotension/hemodynamic instability sepsis/infection (+ bacteremia) prerenal factors cardiac issues/NSTEMI other (?) evaluation to date: renal ultrasound noted no evidence of obstruction on admission CT scan urine electrolytes pre-renal urine eosinophils negative CPK low normal mild proteinuria noted initiated on SPACE AND STORAGE CLERK/dialysis (due to issues related to uremia, acidosis, and mild hyperkalemia) HD yesterday HD today likely plan HD tomorrow as well follow trend of repeat labs and UOP to assess for potential renal recovery however, he had advanced CKD at baseline (and has been on dialysis previously), so it is possible he maybe dialysis dependent (2) Chronic kidney disease, stage IV (severe): Code(s): N18.4 - Chronic kidney disease, stage 4 (severe) Status: Chronic Assessment and Plan: baseline creatinine has been runnint ~ 3.3 - 3.8mg/dl recently felt to be secondary hypertension, vascular disease, previous obesity, COURTNEY, and left overs from his previous bouts of XOCHITL/ARF still has hd issues with metabolic acidosis and hyperkalemia at baseline requiring ongoing medical management (3) Septic shock: Code(s): A41.9 - Sepsis, unspecified organism; R65.21 - Severe sepsis with septic shock Status: Acute Assessment and Plan: noted blood culture results - Klebs aerogenes (Enterobacter) source not clear normal WBC CT scan with any acute pathology follow repeat culture data (negative to date) on antibiotics noted plan for VIGNESH given TTE results follow trend of hemodynamics (4) Anemia: Code(s): D64.9 - Anemia, unspecified Status: Acute Assessment and Plan: as noted by H/H this AM PRBC transfusion today on Retacrit with dialysis treatment follow trend of H/H (5) Acute hyperkalemia: Code(s): E87.5 - Hyperkalemia Status: Acute Assessment and Plan: s/p insulin, dextrose and lokelma in the ER calcium and bicarb given in the ICU on admission dialysis should help control better follow trend of potassium levels (6) Metabolic acidosis: Code(s): E87.20 - Acidosis, unspecified Status: Acute Assessment and Plan: acute on chronic worsened by XOCHITL/ARF s/p IV bicarb pushes and oral bicarbonate dialysis should help to improve/stabilize this issue (7) NSTEMI (non-ST elevated myocardial infarction): Code(s): I21.4 - Non-ST elevation (NSTEMI) myocardial infarction Status: Acute Assessment and Plan: symptoms of chest pain on admission elevated troponins but flat trend due to hypotension versus valvular heart disease (known hx of acortic stenosis) Cardiolgy recommendations noted repeat Echo noted -- VIGNESH planned follow troponins anticoagulation on hold due to anemia and thrombocytopenia along with possible need for procedures Will continue to follow. Subjective Date/time seen: 05/25/24 11:25 Interval history: Follow-up for acute kidney injury/acute renal failure on chronic kidney disease. Tolerated dialysis treatment yesterday afternoon along with PRBC transfusion; tolerating dialysis treatment at the time of my visit (seen on HD at 11:15AM); issues with nausea/vomiting earlier this morning despite no real significant oral intake in the past few days; no apparent distress noted currently; fever noted overnight; hemodynamically stable at this time (off vasopressors but is on midodrine therapy). Exam Narrative: General: WD/WN Caucasina male in NAD Heart: normal S1 and S2; no rub Lungs: a few scattered wheezes noted Abdomen: soft, nontender, nondistended, positive bowel sounds Extremities: no cyanosis or clubbin
[2024-05-25] MEDS: EPOETIN ALFA-EPBX 10,000 UNITS/ML VIAL 10000 UNITS IV PUSH (11:34)
[2024-05-25 12:29] LABS: Glucose Point of Care 106 mg/dl (65-105)
--- NOTE | 2024-05-25 13:19 | PM.IMPN ---
Progress Note: A&P Assessment and Plan (1) Shock: Code(s): R57.9 - Shock, unspecified Status: Acute Assessment and Plan: Shock secondary to sepsis. Patient also has evidence of cirrhosis. No obvious symptoms suggestive of infection on presentation. His WBC was normal. CT scan of chest abdomen pelvis also does not show any source. UA was unremarkable but his procalcitonin level was elevated. Patient has a large scrotal hematoma but decreased in size; could be the source of bacteremia. Urology consulted but no intervention recommended at this time. Patient was started on empiric vancomycin and cefepime. BCx growing Enterobacter. Vancomycin discontinued and continued cefepime Levophed was weaned off TTE shows small mobile echodensity on the ventricular aspect of the mitral valve. Consider endocarditis VIGNESH today showing a vegetation posterior mitral valve Repeat blood cultures NGTD Still having fevers. Continue IV abx. Discussed with Cardiology who recommended transfer to tertiary care center. (2) NSTEMI (non-ST elevated myocardial infarction): Code(s): I21.4 - Non-ST elevation (NSTEMI) myocardial infarction Status: Acute Assessment and Plan: Patient presented with chest pain which could be cardiac in etiology. Mild elevated troponin but flat curve Pain could be secondary to poor cardiac perfusion from hypotension and aortic stenosis EKG reviewed Patient evaluated by Cardiology Chest pain resolved after improvement in blood pressure Echo showing normal LV systolic function (EF 55-60%), LV grade I diastolic dysfunction, moderate to severe (STUART 1.19 cm2), small, mobile echodensity on the ventricular aspect of the mitral valve with mild to moderate MR and trivial pericardial effusion Serial troponin reviewed Anticoagulation held due to anemia and possibility of needing invasive procedures (3) Severe aortic stenosis: Code(s): I35.0 - Nonrheumatic aortic (valve) stenosis Status: Acute Assessment and Plan: Surface Echo showing moderate to severe aortic valve stenosis with a peak velocity of 388.85 cm/s, mean gradient of 42 mmHg, and aortic valve area of 1.19 cm2. VIGNESH showing the aortic valve is severely calcified. The aortic valve is a bicuspid aortic valve. The right coronary cusp and the non coronary cusp appear to be fused. STUART by planimetry is 1.0 cm2 to 1.2 cm2, consistent with moderate severity of stenosis. There is mild aortic regurgitation. Cardiology aware. (4) Jpfuv-kw-zxfzhrg kidney injury: Code(s): N17.9 - Acute kidney failure, unspecified; N18.9 - Chronic kidney disease, unspecified Status: Acute Assessment and Plan: Patient developed acute kidney injury in October of 2022 and was started on hemodialysis. A tunneled dialysis catheter was placed. He continued dialysis until February of 2023 when he was weaned off. His baseline creatinine is in 3s. He presented with XOCHITL with creatinine around 6 due to anemia, sepsis and shock CT scan does not show any urinary obstruction Nephrology following Treated for hyperkalemia and acidosis as below His creatinine has not improved and actually worsened. Concern for uremic encephalopathy. Mendoza catheter placed for difficulty urinating Nephrology consulted and appreciate their input. HD started after dialysis catheter placed 05/24. Underwent HD 05/24 and tolerated this well Monitor urine output, electrolytes and creatinine (5) Metabolic acidosis: Code(s): E87.20 - Acidosis, unspecified Status: Acute Assessment and Plan: Treated with bicarb but now stopped. Follow (6) Acute hyperkalemia: Code(s): E87.5 - Hyperkalemia Status: Acute Assessment and Plan: Related to XOCHITL. Improved with treatment. Okay to stop Lokelma. Monitor (7) Anemia: Code(s): D64.9 - Anemia, unspecified Status: Acute Assessment and Plan: Iron panel reviewed. Patient trish
--- NOTE | 2024-05-25 14:03 | P.PCNTEE_ITS ---
VIGNESH TransEsophageal Echocardiogram Date of procedure: 05/25/24 Procedure Type: Date Of Procedure: 05/25/2024 Brief History Of Present Illness: Patient is a pleasant 59 year old male who is referred for transesophageal echocardiogram for further evaluation for bacteremia and evaluation for infective endocarditis. Procedure In Detail: After verbal and written informed consent was obtained, the patient risks, benefits, and alternatives explained in detail. The patient agreed to proceed with the plan of care as outlined above.?The patient was evaluated at bedside.?See pre-sedation note for further details. The patient was then placed in the appropriate 30 to 45 degree angle supine position at a slight left lateral decubitus position.?Patient was monitored throughout the study with telemetry, oxygen saturation, end-tidal CO2 monitoring, blood pressure, heart rate, and respirations.?The posterior hypopharynx was then locally anesthetized using repeated administration of Hurricaine spray as well as gargled viscous li docaine. After local anesthetic of the posterior hypopharynx was achieved and the oral bite block placed, moderate sedation was administered.?After confirmation of adequate moderate sedation, the transesophageal echocardiogram probe was advanced through the oral bite block into the posterior hypopharynx and into the esophagus easily and without complication.?Multiple, multiplanar echocardiographic images were obtained in multiple standard re-projections.?Continuous-wave, and color-flow Doppler were utilized in conjunction with this study.?At the conclusion of the study, the transesophageal echocardiogram probe was removed easily and without complication. The patient tolerated the procedure well without difficulty. Moderate Sedation / Anesthesia Administration: Procedure / sedation start time: 13:31 Procedure / sedation end time: 13:49 Total procedure time: 18 minutes Total of IV Versed 2mg and Fentanyl 50mg was administered by RN. FINDINGS: LEFT VENTRICLE: Size and systolic function were within normal limits. RIGHT VENTRICLE:?Size and systolic function within normal limits. Pacemaker leads visualized, no vegetation appreciated on pacemaker leads. LEFT ATRIUM: Mildly enlarged. RIGHT ATRIUM: Mildly enlarged. Pacemaker leads visualized, no vegetation appreciated on pacemaker leads. INTERATRIAL SEPTUM: Interatrial septum is anatomically normal without evidence of shunt with color-flow Doppler MITRAL VALVE: The posterior mitral valve leaflet is thickened. Vegetation noted on the posterior mitral valve leaflet on the atrial aspect of the valve; also appreciated on the ventricular aspect of the leaflet. There is mild-moderate mitral valve regurgitation. AORTIC VALVE: The aortic valve is severely calcified. The aortic valve is a bicuspid aortic valve. STUART by planimetry is 1.0 cm2 to 1.2 cm2, consistent with moderate severity of stenosis. TRICUSPID VALVE: No mobile elements identified. There is mild tricuspid regurgitation. PULMONIC VALVE: Pulmonic valve appears to be grossly normal. No mobile elements identified. LEFT ATRIAL APPENDAGE: Anatomically normal structure with prominent pectinate muscles without thrombus or vegetation identified.? PERICARDIUM: The pericardium was anatomically normal without significant pericardial effusion. Complications: None
[2024-05-25] MEDS: CEFEPIME 1 GM/NS 50 ML 1 GM/50 ML BAG IVPB (17:41)
[2024-05-25 17:47] LABS: IFOB Positive Control Positive; Immunochemical Fecal Occult Bl Negative (N)
[2024-05-25 18:17] LABS: Glucose Point of Care 112 mg/dl (65-105)
--- NOTE | 2024-05-25 22:05 | ADMGEN ---
This patient, Chau Cho, was admitted to IMU [id number] at 2155. Patient/family oriented to hospital policies and general routines including ID bracelet, bed and alarms, visiting hours, pain management, procedures, bathroom and other care routines, personal items, smoking policy, room service/diet, and visiting hours. Information on how to activate the Rapid Response Team has been discussed. Patient/Family are encouraged to report perceived risks to care and to ask questions if they do not understand what they are told or what they should do.
--- NOTE | 2024-05-25 22:36 | PC.NURSE ---
This patient, Chau Cho, was transferred to [facility] on 05/25/24 at 2200. 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 Report given to Nargis ART. Appropriate documentation sent with patient.
[2024-05-25 22:43] LABS: Hepatitis B Core Ab Total NON-REACTIVE (NON-REACTIVE)
[2024-05-26] VITALS (32 sets, daily range): BP systolic 93–115; BP diastolic 48–72; PULSE 77–99; RESP 14–20; TEMP 35.7–37.1; O2SAT 93–97
[2024-05-26 05:55] LABS: Basophils Percent Auto 0.2 % (0.2-1.2); Eosinophils Percent Auto 0.3 % (0-4.4); Hematocrit 22.5 % (42.0-52.0); Hemoglobin 7.4 g/dL (14.0-18.0); Immature Granulocyte Absolute 0.03 K/mm3 (0.00-0.031); Immature Granulocyte Percent A 0.5 % (0-0.5); Lymphocytes Absolute Auto 0.63 K/mm3 (0.9-3.2); Lymphocytes Percent Auto 10.3 % (18.3-44.2); Mean Corpuscular HGB Conc 32.9 g/dl (32-36); Mean Corpuscular Volume 88.2 fl (80-100); Monocytes Absolute Auto 0.3 K/mm3 (0.1-0.6); Monocytes Percent Auto 5.4 % (2.6-8.5); Neutrophils Absolute Auto 5.1 K/mm3 (1.3-6.7); Neutrophils Percent Auto 83.3 % (45.5-73.1); Platelet Count Result 127 k/mm3 (150-375); Red Blood Count 2.55 M/mm3 (4.6-6.20); Red Cell Distribution Width 16.6 % (11.5-14.5); White Blood Count 6.1 K/mm3 (4.5-10.0)
[2024-05-26 06:05] LABS: Alanine Aminotransferase 15 U/L (6-50); Albumin Level 2.8 g/dL (3.5-5.1); Alkaline Phosphatase 122 U/L (38-126); Anion Gap 8 mmol/L (4-12); Aspartate Amino Transferase 24 U/L (17-59); Bilirubin,Total 0.6 mg/dL (0.2-1.3); Blood Urea Nitrogen 54 mg/dL (9-20); Calcium 7.2 mg/dL (8.4-10.2); Carbon Dioxide 25 mmol/L (22-30); Chloride 99 mmol/L (98-107); Estimated CRCL calculation 17 ml/min; Estimated Glomerular Filt Rate 13; Glucose 118 mg/dL (65-110); Magnesium 1.9 mg/dL (1.6-2.3); Potassium 4.1 mmol/L (3.4-5.0); Sodium 132 mmol/L (137-145)
--- NOTE | 2024-05-26 07:52 | PC.NURSE ---
Patient scheduled for dialysis at 0800, discussed plan of care with Media Strategist and patient. AM assessment performed, 0900 medications given prior to dialysis treatment.
[2024-05-26] MEDS: MIDODRINE HCL 10 MG TABLET PO ×3 (07:56→16:36)
[2024-05-26] MEDS: PANTOPRAZOLE SODIUM IV 40 MG VIAL IV PUSH ×2 (07:56→20:27)
--- NOTE | 2024-05-26 08:24 | PC.NURSE ---
Patient transported via bed to dialysis room without issue.
[2024-05-26] MEDS: ALBUMIN HUMAN 25% 12.5 GM/50ML 50 ML 50 GM ×2 (08:51→09:38)
--- NOTE | 2024-05-26 10:27 | P.PNNP_ITS ---
Progress Note: A&P Assessment and Plan (1) XOCHITL (acute kidney injury): Code(s): N17.9 - Acute kidney failure, unspecified Status: Acute Assessment and Plan: * as noted by labs on admission * etiology - several possibilities: * hypotension/hemodynamic instability * sepsis/infection (+ bacteremia/endocarditis) * prerenal factors * cardiac issues/NSTEMI * other (?) * evaluation to date: * renal ultrasound noted * no evidence of obstruction on admission CT scan * urine electrolytes pre-renal * urine eosinophils negative * CPK low normal * mild proteinuria noted * initiated on REVENUE INVESTIGATOR/dialysis (due to issues related to uremia, acidosis, and mild hyperkalemia) * HD day before yesterday * HD yesterday * HD today * follow trend of repeat labs and UOP to assess for potential renal recovery * however, since he had advanced CKD at baseline (and has been on dialysis previously), it is possible he maybe dialysis dependent (2) Chronic kidney disease, stage IV (severe): Code(s): N18.4 - Chronic kidney disease, stage 4 (severe) Status: Chronic Assessment and Plan: * baseline creatinine has been runnint ~ 3.3 - 3.8mg/dl recently * felt to be secondary hypertension, vascular disease, previous obesity, COURTNEY, and left overs from his previous bouts of XOCHITL/ARF * still has hd issues with metabolic acidosis and hyperkalemia at baseline requiring ongoing medical management (3) Septic shock: Code(s): A41.9 - Sepsis, unspecified organism; R65.21 - Severe sepsis with septic shock Status: Acute Assessment and Plan: * noted blood culture results - Klebs aerogenes (Enterobacter) * source not clear * normal WBC * CT scan with any acute pathology * follow repeat culture data (negative to date) * on antibiotics * VIGNESH results noted: * vegetation noted on the posterior mitral valve leaflet on the atrial aspect of the valve; also appreciated on the ventricular aspect of the leaflet * noted plans for transfer for Infectious Disease and Cardiothoracic Surgery consultation * follow trend of hemodynamics on midodrine (4) Anemia: Code(s): D64.9 - Anemia, unspecified Status: Acute Assessment and Plan: * due to XOCHITL, CKD, and acute illness * PRBC transfusion per protocol * on Retacrit with dialysis treatment * follow trend of H/H (5) Acute hyperkalemia: Code(s): E87.5 - Hyperkalemia Status: Acute Assessment and Plan: * s/p insulin, dextrose and lokelma in the ER * calcium and bicarb given in the ICU on admission * dialysis helping to control better * follow trend of potassium levels (6) Metabolic acidosis: Code(s): E87.20 - Acidosis, unspecified Status: Acute Assessment and Plan: * acute on chronic * worsened by XOCHITL/ARF * s/p IV bicarb pushes and oral bicarbonate * dialysis helping to stabilize this issue (7) NSTEMI (non-ST elevated myocardial infarction): Code(s): I21.4 - Non-ST elevation (NSTEMI) myocardial infarction Status: Acute Assessment and Plan: * symptoms of chest pain on admission * elevated troponins but flat trend * due to hypotension versus valvular heart disease (known hx of acortic stenosis) * Cardiolgy recommendations noted * repeat Echo noted along with VIGNESH results * anticoagulation on hold due to anemia and thrombocytopenia along with possible need for future procedures Will continue to follow. Subjec
--- NOTE | 2024-05-26 10:27 | PM.PNNEP ---
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 on HERBICIDE SERVICE SALES REPRESENTATIVE/dialysis (due to issues related to uremia, acidosis, and mild hyperkalemia) HD day before yesterday HD yesterday HD today follow trend of repeat labs and UOP to assess for potential renal recovery however, since he had advanced CKD at baseline (and has been on dialysis previously), it is possible he maybe dialysis dependent (2) Chronic kidney disease, stage IV (severe): Code(s): N18.4 - Chronic kidney disease, stage 4 (severe) Status: Chronic Assessment and Plan: baseline creatinine has been runnint ~ 3.3 - 3.8mg/dl recently felt to be secondary hypertension, vascular disease, previous obesity, COURTNEY, and left overs from his previous bouts of XOCHITL/ARF still has hd issues with metabolic acidosis and hyperkalemia at baseline requiring ongoing medical management (3) Septic shock: Code(s): A41.9 - Sepsis, unspecified organism; R65.21 - Severe sepsis with septic shock Status: Acute Assessment and Plan: noted blood culture results - Klebs aerogenes (Enterobacter) source not clear normal WBC CT scan with any acute pathology follow repeat culture data (negative to date) on antibiotics VIGNESH results noted: vegetation noted on the posterior mitral valve leaflet on the atrial aspect of the valve; also appreciated on the ventricular aspect of the leaflet noted plans for transfer for Infectious Disease and Cardiothoracic Surgery consultation follow trend of hemodynamics on midodrine (4) Anemia: Code(s): D64.9 - Anemia, unspecified Status: Acute Assessment and Plan: due to XOCHITL, CKD, and acute illness PRBC transfusion per protocol on Retacrit with dialysis treatment follow trend of H/H (5) Acute hyperkalemia: Code(s): E87.5 - Hyperkalemia Status: Acute Assessment and Plan: s/p insulin, dextrose and lokelma in the ER calcium and bicarb given in the ICU on admission dialysis helping to control better follow trend of potassium levels (6) Metabolic acidosis: Code(s): E87.20 - Acidosis, unspecified Status: Acute Assessment and Plan: acute on chronic worsened by XOCHITL/ARF s/p IV bicarb pushes and oral bicarbonate dialysis helping to stabilize this issue (7) NSTEMI (non-ST elevated myocardial infarction): Code(s): I21.4 - Non-ST elevation (NSTEMI) myocardial infarction Status: Acute Assessment and Plan: symptoms of chest pain on admission elevated troponins but flat trend due to hypotension versus valvular heart disease (known hx of acortic stenosis) Cardiolgy recommendations noted repeat Echo noted along with VIGNESH results anticoagulation on hold due to anemia and thrombocytopenia along with possible need for future procedures Will continue to follow. Subjective Date/time seen: 05/26/24 10:27 Interval history: Follow-up for acute kidney injury/acute renal failure on chronic kidney disease. Tolerated dialysis treatment yesterday morning and tolerating dialysis treatment at the time of my visit (seen on HD at 10:17AM); s/p VIGNESH yesterday with findings noted; tentatively plan is for transfer to another facility for Infectious Disease and CTS consultation; remains hemodynamically stable with the use of midodrine therapy; transferred out of ICU; no acute issues/events overnight or earli
[2024-05-26] MEDS: EPOETIN ALFA-EPBX 10,000 UNITS/ML VIAL 10000 UNITS IV PUSH (11:58)
--- NOTE | 2024-05-26 12:17 | PC.NURSE ---
[facility] Call Center updated on patient condition.
--- NOTE | 2024-05-26 12:40 | PC.NURSE ---
Received report from sausage smoker.
--- NOTE | 2024-05-26 12:50 | PC.NURSE ---
Patient returned to room safely.
--- NOTE | 2024-05-26 15:56 | PM.IMPN ---
Progress Note: A&P Assessment and Plan (1) Shock: Code(s): R57.9 - Shock, unspecified Status: Acute Assessment and Plan: Shock secondary to sepsis. Patient also has evidence of cirrhosis. No obvious symptoms suggestive of infection on presentation. His WBC was normal. CT scan of chest abdomen pelvis also does not show any source. UA was unremarkable but his procalcitonin level was elevated. Patient has a large scrotal hematoma but decreased in size; could be the source of bacteremia. Urology consulted but no intervention recommended at this time. Patient was started on empiric vancomycin and cefepime. BCx growing Enterobacter. Vancomycin discontinued and continued cefepime Levophed was weaned off TTE shows small mobile echodensity on the ventricular aspect of the mitral valve. Consider endocarditis VIGNESH showing a vegetation posterior mitral valve Repeat blood cultures NGTD Still having fevers. Continue IV abx. Discussed with Cardiology who recommended transfer to tertiary care center. He has been accepted but waiting for bed (2) NSTEMI (non-ST elevated myocardial infarction): Code(s): I21.4 - Non-ST elevation (NSTEMI) myocardial infarction Status: Acute Assessment and Plan: Patient presented with chest pain which could be cardiac in etiology. Mild elevated troponin but flat curve Pain could be secondary to poor cardiac perfusion from hypotension and aortic stenosis EKG reviewed Patient evaluated by Cardiology Chest pain resolved after improvement in blood pressure Echo showing normal LV systolic function (EF 55-60%), LV grade I diastolic dysfunction, moderate to severe (STUART 1.19 cm2), small, mobile echodensity on the ventricular aspect of the mitral valve with mild to moderate MR and trivial pericardial effusion Serial troponin reviewed Anticoagulation held due to anemia and possibility of needing invasive procedures (3) Severe aortic stenosis: Code(s): I35.0 - Nonrheumatic aortic (valve) stenosis Status: Acute Assessment and Plan: Surface Echo showing moderate to severe aortic valve stenosis with a peak velocity of 388.85 cm/s, mean gradient of 42 mmHg, and aortic valve area of 1.19 cm2. VIGNESH showing the aortic valve is severely calcified. The aortic valve is a bicuspid aortic valve. The right coronary cusp and the non coronary cusp appear to be fused. STUART by planimetry is 1.0 cm2 to 1.2 cm2, consistent with moderate severity of stenosis. There is mild aortic regurgitation. Cardiology aware. (4) Iuorr-gn-uvbraej kidney injury: Code(s): N17.9 - Acute kidney failure, unspecified; N18.9 - Chronic kidney disease, unspecified Status: Acute Assessment and Plan: Patient developed acute kidney injury in 2019(?) and again October of 2022 requiring hemodialysis. He continued dialysis until February 2023 when he was weaned off. His baseline creatinine is in 3s. He presented with XOCHITL with creatinine around 6 due to anemia, sepsis and shock CT scan does not show any urinary obstruction Treated for hyperkalemia and acidosis as below His creatinine has not improved and actually worsened. Concern for uremic encephalopathy. Mendoza catheter placed for difficulty urinating Nephrology consulted and appreciate their input. HD started after dialysis catheter placed 05/24. Continue HD to control fluid status, hyperK+, acidosis and uremia. Monitor urine output, electrolytes and creatinine (5) Metabolic acidosis: Code(s): E87.20 - Acidosis, unspecified Status: Acute Assessment and Plan: Treated with bicarb but now stopped. Follow (6) Acute hyperkalemia: Code(s): E87.5 - Hyperkalemia Status: Acute Assessment and Plan: Related to XOCHITL. Improved with treatment. Okay to stop Lokelma. Monitor (7) Anemia: Code(s): D64.9 - Anemia, unspecified Status: Acute Assessment and Plan: Iron panel reviewed. Patient den
[2024-05-26] MEDS: CEFEPIME 1 GM/NS 50 ML 1 GM/50 ML BAG IVPB (17:15)
[2024-05-26 18:05] LABS: Glucose Point of Care 151 mg/dl (65-105)
[2024-05-26 20:18] LABS: Glucose Point of Care 131 mg/dl (65-105)
[2024-05-27] VITALS (17 sets, daily range): BP systolic 96–124; BP diastolic 54–75; PULSE 54–98; RESP 18–20; TEMP 36.4–37; O2SAT 92–97
[2024-05-27 06:20] LABS: Basophils Percent Auto 0.1 % (0.2-1.2); Eosinophils Absolute Auto 0.1 K/mm3 (0-0.3); Eosinophils Percent Auto 0.7 % (0-4.4); Hematocrit 22.7 % (42.0-52.0); Hemoglobin 7.1 g/dL (14.0-18.0); Immature Granulocyte Absolute 0.04 K/mm3 (0.00-0.031); Immature Granulocyte Percent A 0.6 % (0-0.5); Lymphocytes Absolute Auto 0.98 K/mm3 (0.9-3.2); Lymphocytes Percent Auto 14.6 % (18.3-44.2); Mean Corpuscular HGB Conc 31.3 g/dl (32-36); Mean Corpuscular Hemoglobin 28.2 pg (26-34); Mean Corpuscular Volume 90.1 fl (80-100); Monocytes Absolute Auto 0.4 K/mm3 (0.1-0.6); Monocytes Percent Auto 6.5 % (2.6-8.5); Neutrophils Absolute Auto 5.2 K/mm3 (1.3-6.7); Neutrophils Percent Auto 77.5 % (45.5-73.1); Platelet Count Result 143 k/mm3 (150-375); Red Blood Count 2.52 M/mm3 (4.6-6.20); Red Cell Distribution Width 16.6 % (11.5-14.5); White Blood Count 6.7 K/mm3 (4.5-10.0)
[2024-05-27 06:41] LABS: Alanine Aminotransferase 19 U/L (6-50); Albumin Level 2.8 g/dL (3.5-5.1); Alkaline Phosphatase 115 U/L (38-126); Anion Gap 9 mmol/L (4-12); Aspartate Amino Transferase 31 U/L (17-59); Bilirubin,Total 0.6 mg/dL (0.2-1.3); Blood Urea Nitrogen 41 mg/dL (9-20); Calcium 7.4 mg/dL (8.4-10.2); Carbon Dioxide 27 mmol/L (22-30); Chloride 99 mmol/L (98-107); Estimated CRCL calculation 21 ml/min; Estimated Glomerular Filt Rate 15; Glucose 114 mg/dL (65-110); Magnesium 1.9 mg/dL (1.6-2.3); Potassium 4.2 mmol/L (3.4-5.0); Sodium 135 mmol/L (137-145)
[2024-05-27 07:37] LABS: Glucose Point of Care 136 mg/dl (65-105)
[2024-05-27 07:37] LABS: Glucose Point of Care 132 mg/dl (65-105)
[2024-05-27] MEDS: MIDODRINE HCL 10 MG TABLET PO ×3 (08:31→17:48)
[2024-05-27] MEDS: PANTOPRAZOLE SODIUM IV 40 MG VIAL IV PUSH ×2 (08:32→20:08)
--- NOTE | 2024-05-27 11:03 | P.PNNP_ITS ---
Progress Note: A&P Assessment and Plan (1) XOCHITL (acute kidney injury): Code(s): N17.9 - Acute kidney failure, unspecified Status: Acute Assessment and Plan: * as noted by labs on admission * etiology - several possibilities: * hypotension/hemodynamic instability * sepsis/infection (+ bacteremia/endocarditis) * prerenal factors * cardiac issues/NSTEMI * combination of all... * other (?) * evaluation to date: * renal ultrasound noted * no evidence of obstruction on admission CT scan * urine electrolytes pre-renal * urine eosinophils negative * CPK low normal * mild proteinuria noted * initiated on REFINING STILL OPERATOR/dialysis (due to issues related to uremia, acidosis, and mild hyperkalemia) * HD qday x 3 days (05/24, 05/25, and 05/26) * follow trend of repeat labs and UOP to assess for potential renal recovery * however, since he had advanced CKD at baseline (and has been on dialysis previously), it is possible he maybe dialysis dependent (2) Chronic kidney disease, stage IV (severe): Code(s): N18.4 - Chronic kidney disease, stage 4 (severe) Status: Chronic Assessment and Plan: * baseline creatinine has been runnint ~ 3.3 - 3.8mg/dl recently * felt to be secondary hypertension, vascular disease, previous obesity, COURTNEY, and left overs from his previous bouts of XOCHITL/ARF * still has had issues with metabolic acidosis and hyperkalemia at baseline requiring ongoing medical management (3) Septic shock: Code(s): A41.9 - Sepsis, unspecified organism; R65.21 - Severe sepsis with septic shock Status: Acute Assessment and Plan: * noted blood culture results - Klebs aerogenes (Enterobacter) * source presumed to be endocarditis (see below) * normal WBC * CT scan with any acute pathology * follow repeat culture data (negative to date) * on antibiotics * VIGNESH results noted: * vegetation noted on the posterior mitral valve leaflet on the atrial aspect of the valve; also appreciated on the ventricular aspect of the l eaflet * noted plans for transfer to another facility for Infectious Disease and Cardiothoracic Surgery consultation * follow trend of hemodynamics on midodrine (4) Anemia: Code(s): D64.9 - Anemia, unspecified Status: Acute Assessment and Plan: * due to XOCHITL, CKD, and acute illness * PRBC transfusion per protocol * on Retacrit with dialysis treatment * follow trend of H/H (5) Acute hyperkalemia: Code(s): E87.5 - Hyperkalemia Status: Acute Assessment and Plan: * s/p insulin, dextrose and lokelma in the ER * calcium and bicarb given in the ICU on admission * dialysis helping to control better * follow trend of potassium levels (6) Metabolic acidosis: Code(s): E87.20 - Acidosis, unspecified Status: Acute Assessment and Plan: * acute on chronic * worsened by XOCHITL/ARF * s/p IV bicarb pushes and oral bicarbonate * dialysis helping to stabilize this issue (7) NSTEMI (non-ST elevated myocardial infarction): Code(s): I21.4 - Non-ST elevation (NSTEMI) myocardial infarction Status: Acute Assessment and Plan: * symptoms of chest pain on admission * elevated troponins but flat trend * due to hypotension versus valvular heart disease (known hx of acortic stenosis) * Cardiolgy recommendations noted * repeat Echo noted along with VIGNESH results * anticoagulation on hold due to anemia and thrombocytopenia along with possible need for future procedures
--- NOTE | 2024-05-27 11:03 | PM.PNNEP ---
Progress Note: A&P Assessment and Plan (1) XOCHITL (acute kidney injury): Code(s): N17.9 - Acute kidney failure, unspecified Status: Acute Assessment and Plan: as noted by labs on admission etiology - several possibilities: hypotension/hemodynamic instability sepsis/infection (+ bacteremia/endocarditis) prerenal factors cardiac issues/NSTEMI combination of all... other (?) evaluation to date: renal ultrasound noted no evidence of obstruction on admission CT scan urine electrolytes pre-renal urine eosinophils negative CPK low normal mild proteinuria noted initiated on AIDS COUNSELOR/dialysis (due to issues related to uremia, acidosis, and mild hyperkalemia) HD qday x 3 days (05/24, 05/25, and 05/26) follow trend of repeat labs and UOP to assess for potential renal recovery however, since he had advanced CKD at baseline (and has been on dialysis previously), it is possible he maybe dialysis dependent (2) Chronic kidney disease, stage IV (severe): Code(s): N18.4 - Chronic kidney disease, stage 4 (severe) Status: Chronic Assessment and Plan: baseline creatinine has been runnint ~ 3.3 - 3.8mg/dl recently felt to be secondary hypertension, vascular disease, previous obesity, COURTNEY, and left overs from his previous bouts of XOCHITL/ARF still has had issues with metabolic acidosis and hyperkalemia at baseline requiring ongoing medical management (3) Septic shock: Code(s): A41.9 - Sepsis, unspecified organism; R65.21 - Severe sepsis with septic shock Status: Acute Assessment and Plan: noted blood culture results - Klebs aerogenes (Enterobacter) source presumed to be endocarditis (see below) normal WBC CT scan with any acute pathology follow repeat culture data (negative to date) on antibiotics VIGNESH results noted: vegetation noted on the posterior mitral valve leaflet on the atrial aspect of the valve; also appreciated on the ventricular aspect of the leaflet noted plans for transfer to another facility for Infectious Disease and Cardiothoracic Surgery consultation follow trend of hemodynamics on midodrine (4) Anemia: Code(s): D64.9 - Anemia, unspecified Status: Acute Assessment and Plan: due to XOCHITL, CKD, and acute illness PRBC transfusion per protocol on Retacrit with dialysis treatment follow trend of H/H (5) Acute hyperkalemia: Code(s): E87.5 - Hyperkalemia Status: Acute Assessment and Plan: s/p insulin, dextrose and lokelma in the ER calcium and bicarb given in the ICU on admission dialysis helping to control better follow trend of potassium levels (6) Metabolic acidosis: Code(s): E87.20 - Acidosis, unspecified Status: Acute Assessment and Plan: acute on chronic worsened by XOCHITL/ARF s/p IV bicarb pushes and oral bicarbonate dialysis helping to stabilize this issue (7) NSTEMI (non-ST elevated myocardial infarction): Code(s): I21.4 - Non-ST elevation (NSTEMI) myocardial infarction Status: Acute Assessment and Plan: symptoms of chest pain on admission elevated troponins but flat trend due to hypotension versus valvular heart disease (known hx of acortic stenosis) Cardiolgy recommendations noted repeat Echo noted along with VIGNESH results anticoagulation on hold due to anemia and thrombocytopenia along with possible need for future procedures Will continue to follow. Subjective Date/time seen: 05/27/24 11:03 Interval history: Follow-up for acute kidney injury/acute renal failure on chronic kidney disease. Tolerated dialysis treatment yesterday without any issues or problems; no apparent distress voiced at the time of my visit; no acute complaints voiced with regard to shortness of breath or chest pain; stable hemodynamics with midodrine therapy; no events overnight or earlier this morning. Exam Narrative: General: WD/WN Cau
[2024-05-27 11:32] LABS: Glucose Point of Care 117 mg/dl (65-105)
--- NOTE | 2024-05-27 16:49 | PM.IMPN ---
Progress Note: A&P Assessment and Plan (1) Shock: Code(s): R57.9 - Shock, unspecified Status: Acute Assessment and Plan: Shock secondary to sepsis. Patient also has evidence of cirrhosis. No obvious symptoms suggestive of infection on presentation. His WBC was normal. CT scan of chest abdomen pelvis also does not show any source. UA was unremarkable but his procalcitonin level was elevated. Patient has a large scrotal hematoma but decreased in size; could be the source of bacteremia. Urology consulted but no intervention recommended at this time. Patient was started on empiric vancomycin and cefepime. BCx growing Enterobacter. Vancomycin discontinued and cefepime continued continued Levophed was weaned off TTE shows small mobile echodensity on the ventricular aspect of the mitral valve. Consider endocarditis VIGNESH showing a vegetation posterior mitral valve Repeat blood cultures NGTD No fevers. WBC normal. Continue IV abx. Discussed with Cardiology who recommended transfer to tertiary care center. He has been accepted but waiting for bed (2) NSTEMI (non-ST elevated myocardial infarction): Code(s): I21.4 - Non-ST elevation (NSTEMI) myocardial infarction Status: Acute Assessment and Plan: Patient presented with chest pain which could be cardiac in etiology. Elevated troponin to 1.1 but flat curve. EKG showing sinus tachycardia (103), left BBB. Repeat EKG showing no change. (old EKG show IVCD) Pain could be secondary to poor cardiac perfusion from hypotension and aortic stenosis Patient evaluated by Cardiology Chest pain resolved after improvement in blood pressure Echo showing normal LV systolic function (EF 55-60%), LV grade I diastolic dysfunction, moderate to severe (STUART 1.19 cm2), small, mobile echodensity on the ventricular aspect of the mitral valve with mild to moderate MR and trivial pericardial effusion Serial troponin reviewed Anticoagulation held due to anemia and possibility of needing invasive procedures (3) Severe aortic stenosis: Code(s): I35.0 - Nonrheumatic aortic (valve) stenosis Status: Acute Assessment and Plan: Surface Echo showing moderate to severe aortic valve stenosis with a peak velocity of 388.85 cm/s, mean gradient of 42 mmHg, and aortic valve area of 1.19 cm2. VIGNESH showing the aortic valve is severely calcified. The aortic valve is a bicuspid aortic valve. The right coronary cusp and the non coronary cusp appear to be fused. STUART by planimetry is 1.0 cm2 to 1.2 cm2, consistent with moderate severity of stenosis. There is mild aortic regurgitation. Cardiology aware. (4) Lquds-sy-adlehfm kidney injury: Code(s): N17.9 - Acute kidney failure, unspecified; N18.9 - Chronic kidney disease, unspecified Status: Acute Assessment and Plan: Patient developed acute kidney injury in 2019(?) and again October of 2022 requiring hemodialysis. He continued dialysis until February 2023 when he was weaned off. His baseline creatinine since then is in 3s. He presented with XOCHITL with creatinine around 6 due to anemia, sepsis, endocarditis and shock CT scan does not show any urinary obstruction Treated for hyperkalemia and acidosis as below His creatinine has not improved and actually worsened. Concern for uremic encephalopathy. Mendoza catheter placed for difficulty urinating Nephrology consulted and appreciate their input. HD started after dialysis catheter placed 05/24. Continue HD to control fluid status, hyperK+, acidosis and uremia. Monitor urine output, electrolytes and creatinine (5) Metabolic acidosis: Code(s): E87.20 - Acidosis, unspecified Status: Acute Assessment and Plan: Treated with bicarb but now stopped. Follow (6) Acute hyperkalemia: Code(s): E87.5 - Hyperkalemia Status: Acute Assessment and Plan: Related to XOCHITL. Improved with treatment. Okay to stop Lokelma. Monitor (7) Anemia:
[2024-05-27 17:31] LABS: Glucose Point of Care 107 mg/dl (65-105)
[2024-05-27] MEDS: CEFEPIME 1 GM/NS 50 ML 1 GM/50 ML BAG IVPB (17:48)
[2024-05-27 20:32] LABS: Glucose Point of Care 124 mg/dl (65-105)
--- NOTE | 2024-05-27 22:32 | PC.NURSE ---
[facility] updated ETA of 2145 at 2030. Pt. updated on time change.
[2024-05-28] VITALS: PULSE 81
[2024-05-28 02:00] VITALS: PULSE 71
--- NOTE | 2024-05-28 02:11 | PC.NURSE ---
[facility] arrived to transfer patient to [facility] rm [id number]. Bedside report was given & care transferred to ALS crew. Report called to [facility]. Upon EMS leaving with the patient on the stretcher, the patient experienced an increase of HR on EMS director of cardiac cath lab to 140s-170s. Dr. Huston was contacted who approved EMS to continue with transportation. EMS obtained 12lead & 12lead showed a paced rhythm in the 70s. EOR.
--- NOTE | 2024-05-28 08:38 | PM.TDS ---
Transfer Discharge Sum: Prov Provider Date of admission: 05/22/24 12:57 Primary care physician: Nevaeh Sepulveda, Admitting clinician: Michael Freire MD Consults: 05/22/24 12:58 Consult to Physician Routine Comment: Consulting Provider: Steven Ramos Reason for consultation: Kidney failure Has provider been notified: Yes Consult to Physician Routine Comment: Consulting Provider: Demetri Garcia Reason for consultation: Elevated trop/cp Has provider been notified: Yes Consult to Physician Routine Comment: Consulting Provider: Bryan Santana Reason for consultation: Shock Has provider been notified: Yes 05/23/24 Consult to Physician Routine Comment: spoke with Hilary in the office @1050(,[place]) Consulting Provider: Cornelius Bee freight team associate/MD group to consult: Urology Reason for consultation: Scrotal Hematoma, Bacteremia Has provider been notified: Yes DS: Admitting Diagnosis Discharge Date 05/28/24 Admitting Diagnosis Chest pain DS: Discharge Diagnosis Discharge Diagnosis (1) Shock: Code(s): R57.9 - Shock, unspecified Status: Acute (2) Endocarditis: Code(s): I38 - Endocarditis, valve unspecified Status: Acute (3) NSTEMI (non-ST elevated myocardial infarction): Code(s): I21.4 - Non-ST elevation (NSTEMI) myocardial infarction Status: Acute (4) Severe aortic stenosis: Code(s): I35.0 - Nonrheumatic aortic (valve) stenosis Status: Acute (5) Pnlxz-mb-riptazi kidney injury: Code(s): N17.9 - Acute kidney failure, unspecified; N18.9 - Chronic kidney disease, unspecified Status: Acute (6) Metabolic acidosis: Code(s): E87.20 - Acidosis, unspecified Status: Acute (7) Acute hyperkalemia: Code(s): E87.5 - Hyperkalemia Status: Acute (8) Anemia: Code(s): D64.9 - Anemia, unspecified Status: Acute (9) Hematoma: Code(s): T14.8XXA - Other injury of unspecified body region, initial encounter Status: Acute Transfer Discharge Sum: Med Medications Active and Home Medications: Home Medications cholecalciferol (vitamin D3) 50 mcg (2,000 unit) capsule 100 mcg PO DAILY #60 caps 04/07/23 [Rx Confirmed 05/22/24] sodium bicarbonate 650 mg tablet 650 mg PO BID #60 tabs 04/07/23 [Rx Confirmed 05/22/24] sodium zirconium cyclosilicate 10 gram oral powder packet (Lokelma) 10 g PO DAILY PRN hyperkalemia 10/13/23 [History Confirmed 05/22/24] Transfer Discharge Sum: Hosp Hospital Course Hospital course: Chau Cho is a 59yo male with CKD, cirrhosis and DM here for chest pain. Please see H&P for details. The following issues were addressed: (1) Shock: Patient presented with chest pain and found to have shock secondary to sepsis. Patient also has evidence of cirrhosis. No obvious symptoms suggestive of infection on presentation. His WBC was normal. CT scan of chest/abdomen/pelvis also does not show any source. UA was unremarkable but his procalcitonin level was elevated. Patient has a large scrotal hematoma but decreased in size; could be the source of bacteremia. Urology consulted but no intervention recommended at this time. Patient was started on empiric vancomycin and cefepime. BCx growing Enterobacter. Vancomycin discontinued and cefepime continued. Levophed was weaned off. TTE showed a small mobile echodensity on the ventricular aspect of the mitral valve. Consider endocarditis. VIGNESH showing a vegetation posterior mitral valve. Repeat blood cultures NGTD. No fevers. WBC normal. Discussed with Cardiology who recommended transfer to tertiary care center and this was arranged. Patient was transferred in stable condition. (2) NSTEMI (non-ST elevated myocardial infarction): Patient presented with chest pain which could be cardiac in etiology. Elevated troponin to 1.1 but flat curve. EKG showing sinus tachycardia (103), left BBB. Repeat EKG showing no palomo
== END 2024-05-28 02:20 | disposition short-term general hospital (02) | DRG 871 ==
LOC: ANHED 12:56 → ANHICU 13:28 → ANHIMU 05-25 22:39
PROVIDERS: Internal Medicine; Internal Medicine Nephrology; Physician Assistant; Admitting Provider Internal Medicine; Emergency Provider Emergency Medicine; PCP Family Medicine; Visit Provider Internal Medicine
PROC: B246ZZ4 Ultrasonography of Right and Left Heart, Transesophageal (ICD-10-PCS; CPT 93312; principal; 2024-05-25 12:00)
DX: A41.81 Sepsis due to Enterococcus (principal); I21.4 Non-ST elevation (NSTEMI) myocardial infarction; R65.21 Severe sepsis with septic shock; I33.0 Acute and subacute infective endocarditis; E87.20 Acidosis, unspecified; I13.0 Hypertensive heart and chronic kidney disease with heart failure and stage 1 through stage 4 chronic kidney disease, or unspecified chronic kidney disease; N17.9 Acute kidney failure, unspecified; N18.4 Chronic kidney disease, stage 4 (severe); K76.6 Portal hypertension; E87.5 Hyperkalemia; I50.9 Heart failure, unspecified; I35.0 Nonrheumatic aortic (valve) stenosis; D64.9 Anemia, unspecified; D69.6 Thrombocytopenia, unspecified; K74.60 Unspecified cirrhosis of liver; K42.9 Umbilical hernia without obstruction or gangrene; E55.9 Vitamin D deficiency, unspecified; S30.22XD Contusion of scrotum and testes, subsequent encounter; G25.81 Restless legs syndrome; F17.210 Nicotine dependence, cigarettes, uncomplicated; Z20.822 Contact with and (suspected) exposure to COVID-19; Z95.0 Presence of cardiac pacemaker
CPT/HCPCS: 36415; 36430; 36556; 36600; 70450; 71045; 71250; 74176; 76775; 80048; 80053; 80061; 80202; 81001; 82140; 82274; 82436; 82533; 82550; 82570; 82607; 82728; 82746; 82805; 82810; 82948; 83010; 83540; 83550; 83605; 83615; 83690; 83735; 83880; 83930; 83935; 84133; 84134; 84145; 84156; 84300; 84443; 84484; 85025; 85046; 85055; 85380; 85384; 85610; 85652; 85730; 85999; 86704; 86706; 86850; 86880; 86900; 86901; 86923; 87040; 87077; 87186; 87340; 87637; 87641; 93005; 93312; 93320; 93325; 96361; 96365; 96366; 96367; 96368; 96375; 99285; A9270; C1751; C1752; C8929; G0257; J0612; J0613; J0692; J1644; J1815; J2250; J2270; J2405; J2470; J2543; J2704; J3010; J3370; J7030; J7040; J7050; P9016; P9041; P9047; Q5105; Q9957

== ENCOUNTER 2024-07-16 00:02 | Inpatient (IN) | payer MEDICARE, MEDICAID, SELFPAY ==
[2024-07-16] VITALS (25 sets, daily range): BP systolic 111–139; BP diastolic 41–73; PULSE 89–105; RESP 14–28; TEMP 36.6–37.4; O2SAT 94–100; BMI 29.3
--- NOTE | ~2024-07-16 | XR_ITS ---
EXAMINATION: XR chest 1V portable DATE: 07/21/2024 20:02 INDICATION: Shortness of breath. TECHNIQUE: A single frontal view of the chest was obtained. COMPARISON: Chest single view 07/16/2024, chest CT 05/22/2024 FINDINGS: There are moderate-sized pleural effusions. There are peripheral airspace opacities in the mid and lower lung zones. No pneumothorax. Cardiomegaly is noted. There are changes of heart valve re placement. A right internal jugular central venous catheter is seen with tip at the superior cavoatri al junction. Epicardial pacer wires are noted. IMPRESSION: 1. Moderate-sized pleural effusions. 2. Airspace opacities in the peripheral mid and lower lung zones, likely atelectasis and scarring. 3. Cardiomegaly. Reviewed, dictated and finalized at location A. MBLER TRIM IMPRESSION: 1. Moderate-sized pleural effusions. 2. Airspace opacities in the peripheral mid and lower lung zones, likely atelec tasis and scarring. 3. Cardiomegaly.
--- NOTE | ~2024-07-16 | XR_ITS ---
EXAMINATION: XR chest 1V portable DATE: 07/23/2024 10:26 INDICATION: Shortness of breath during dialysis TECHNIQUE: frontal view of the chest was obtained. COMPARISON: Chest radiograph dated 07/21/2024 FINDINGS: Large-bore dual-lumen likely tunneled right internal jugular central venous dialysis catheter with di stal tip at the high right atrium. Again seen are gradients of basilar predominant groundglass opacit ies throughout the lungs with increased interstitial pattern consistent with mild pulmonary edema and small right and small to moderate-sized left posterior layering pleural effusions. More dense opacit ies at the left mid and bilateral lower lung zones most likely related to associated atelectasis alth ough differential includes pneumonia. No pneumothorax. The cardiac silhouette is obscured by the kiara cent lung disease. Median sternotomy with plain screw fixations and mediastinal surgical clips are se en, likely from prior coronary artery bypass grafting. There has also been prior heart valve replacem ents. There are also epicardial pacemaker leads ejecting over the heart. IMPRESSION: 1. Persistent, edema and small right and moderate-sized left pleural effusions. 2. Opacities in the left mid and bilateral lower lung zones which could represent associated atelecta sis or pneumonia. Reviewed, dictated and finalized at location A. T SPECIAL OPERATIONS IMPRESSION: 1. Persistent, edema and small right and moderate-sized left pleural effusions. 2. Opacities in the left mid and bilateral lower lung zones which could represe nt associated atelectasis or pneumonia.
--- NOTE | ~2024-07-16 | XR_ITS ---
Supine and upright views of the abdomen Clinical history: Pacemaker identification Findings: Bowel gas pattern is nonspecific. No evidence for obstruction or free air. No abnormal mass lesion or calcification is seen. Pacemaker device present overlying the right mid abdomen. Osseous s tructures are intact. Moderate bilateral pleural effusions noted. Impression: Pacemaker. Moderate bilateral pleural effusions. Nonspecific bowel gas pattern. Reviewed, dictated and finalized at location . ICER KIT ASSEMBLER Impression: Pacemaker. Moderate bilateral pleural effusions. Nonspecific bowel gas pattern.
--- NOTE | ~2024-07-16 | XR_ITS ---
Portable chest x-ray Comparison: 05/26/2024 Clinical History: Shortness of breath Findings: Right-sided central venous line is in place. Moderate bilateral pleural effusions are pres ent. There is moderate bibasilar pulmonary edema/atelectasis. Cardiomediastinal silhouette is stable , status post interval valve replacement. Bones and soft tissues are unremarkable. Impression: Moderate bibasilar pulmonary edema/atelectasis with moderate bilateral pleural effusions. Support line, as above. Cardiomegaly, status post mitral valve replacement. Reviewed, dictated and finalized at location M. PER RECEIVER Impression: Moderate bibasilar pulmonary edema/atelectasis with moderate bilateral pleural effusions. Support line, as above. Cardiomegaly, status post mitral valve replacement.
--- NOTE | 2024-07-16 00:08 | ECG_ITS ---
Test Date: 2024-07-16 00:12:54 Measurements Intervals [place] Rate: 91 P: 130 ID: [id number] QRS: -21 QRSD: 125 T: 150 QT: 361 QTc: 444 Interpretive Statements ELECTRONIC ATRIAL PACEMAKER ELECTRONIC VENTRICULAR PACEMAKER SUPRAVENTRICULAR BIGEMINY BASELINE ARTIFACT- I, III, AVR, AVL, AVF, V1-V6 NO FURTHER INTERPRETATION IS POSSIBLE ABNORMAL ECG Compared to ECG 05/22/2024 11:30:03 SUPRAVENTRICULAR BIGEMINY NOW PRESENT Electronically Signed On 07-16-2024 07:47:00 AGENCY SALES REPRESENTATIVE by Thony Rincon D.O.
[2024-07-16 00:19] LABS: Basophils Percent Auto 0.4 % (0.2-1.2); Eosinophils Absolute Auto 0.1 K/mm3 (0-0.3); Eosinophils Percent Auto 1.3 % (0-4.4); Immature Granulocyte Absolute 0.05 K/mm3 (0.00-0.031); Immature Granulocyte Percent A 0.5 % (0-0.5); Mean Corpuscular HGB Conc 29.8 g/dl (32-36); Mean Corpuscular Hemoglobin 29.2 pg (26-34); Mean Corpuscular Volume 97.9 fl (80-100); Mean Platelet Volume 9.7 fl (7.4-10.4); Monocytes Absolute Auto 0.5 K/mm3 (0.1-0.6); Neutrophils Absolute Auto 7.4 K/mm3 (1.3-6.7); Neutrophils Percent Auto 79.8 % (45.5-73.1); Platelet Count Result 271 k/mm3 (150-375); Red Blood Count 1.95 M/mm3 (4.6-6.20); White Blood Count 9.2 K/mm3 (4.5-10.0)
[2024-07-16 00:31] LABS: Alanine Aminotransferase 24 U/L (6-50); Albumin Level 3.6 g/dL (3.5-5.1); Alkaline Phosphatase 173 U/L (38-126); Anion Gap 8 mmol/L (4-12); Aspartate Amino Transferase 37 U/L (17-59); Blood Urea Nitrogen 46 mg/dL (9-20); Calcium 7.9 mg/dL (8.4-10.2); Carbon Dioxide 33 mmol/L (22-30); Chloride 96 mmol/L (98-107); Estimated CRCL calculation 24 ml/min; Estimated Glomerular Filt Rate 20; Glucose 94 mg/dL (65-110); Potassium 4.5 mmol/L (3.4-5.0); Sodium 137 mmol/L (137-145)
[2024-07-16 00:50] LABS: Hemoglobin 5.7 g/dL (14.0-18.0)
[2024-07-16 00:52] LABS: Hematocrit 19.1 % (42.0-52.0)
[2024-07-16 00:53] LABS: Platelet Estimate Adequate (Adequate)
[2024-07-16 00:55] LABS: Anisocytosis 2+; Hypochromasia 3+; Ovalocytes 1+; Poikilocytosis 1+; Schistocytes None Seen; Stomatocytes 1+
[2024-07-16 01:33] LABS: NT Pro B Type Natriuretic Pept > 30000 pg/mL (19.9-100); Troponin I 0.137 ng/mL (0.000-0.034)
--- NOTE | 2024-07-16 02:12 | ED.GENADULT ---
HPI - General Adult General Chief complaint: Shortness of Breath/Dyspnea Stated complaint: dyspnea, palpations Time Seen by Provider: 07/16/24 00:17 History of Present Illness HPI narrative: Patient is a 59-year-old gentleman who presents emergency department with chief complaint of shortness of breath and tachycardia. Patient has history of end-stage renal disease sees Dr. Deb elizondo of the patient reports he just had a 3 valve replacement at [place] the patient states that he was discharged home has a new pacemaker that was placed in his abdomen when EMS arrived he was about 90% on room air and was placed on oxygen patient states that currently he feels back to normal but does report that he was feeling weak recently and run down Related Data Home Medications Medication Instructions Recorded Confirmed sodium zirconium cyclosilicate 10 10 g PO DAILY PRN hyperkalemia 10/13/23 05/22/24 gram oral powder packet (Lokelma) Allergies Allergy/AdvReac Type Severity Reaction Status Date / Time morphine AdvReac Mild Agitated Verified 07/16/24 00:11 Review of Systems Review of Systems: A 10 system review of systems was completed on the patient and is negative except for what is stated in the HPI. Nursing and ancillary documentation was reviewed. [facility] Past Medical History Medical History Chronic anemia Chronic kidney disease Cirrhosis of liver Complete heart block Status post pacemaker implantation. Diastolic dysfunction History of blood transfusion History of pneumothorax Hypertension Restless legs syndrome Tobacco dependence Vitamin D deficiency Surgical History Surgical History History of inguinal hernia repair (2004) History of permanent cardiac pacemaker placement For complete heart block. History of renal stent Pacemaker Family History Family History Other Cerebrovascular accident Heart disease Hypertension Social History Social History Social History: Surrogate medical decision maker: Dolores Cho, daughter ([phone]). Code status: Full code. Smoking packs per day: 0.5 Smoking cigarettes per day: 10.0 Years smoked: 20 Smoking pack-years: 10.00 Smoking status: Heavy tobacco smoker Tobacco type: cigars Additional smoking assessment comments: 4-5 cigars/month Alcohol intake: never Substance use: current Substance use type: marijuana Other substance usage details: Cannabis Gummy Unknown Dose but uses for pain/discomfort Do You Feel Safe in your Home?: Yes Lack of Transportation: YES Lack of Food: Never True Current Housing: I Have Housing Concerned About Future Housing: No Difficulty Paying Gas/Electric Bills: No Difficulty Paying for Meds: No Currently Unemployed: No Education: High School Diploma/GED Difficulty w/ Childcare or Family Care: No Living arrangements: with family Additional living arrangements comments: . Lives with daughter in [place]. Additional occupation/education comments: Disabled. Spiritual care concerns: No Exam Narrative: GENERAL: Well-appearing, well-nourished, and in no acute distress. HEAD: Normocephalic, atraumatic. EYES: PERRLA and EOMI. ENT: Nares clear, no rhinorrhea or epistaxis. Mucous membranes moist. NECK: Supple. CHEST: Clear to auscultation. No respiratory distress. HEART: Regular rate and rhythm. No murmur heard. Normal peripheral pulses. ABDOMEN: Soft, nontender, nondistended, normal active bowel sounds. EXTREMITIES: Normal range of motion. No edema. SKIN: Warm, dry, no rash. NEURO: No focal deficits. Alert and oriented x3. PSYCH: Normal mood and affect. Course Vital Signs Vital signs: Vital Signs Temperature 37.2 C 07/16/24 00:00 Pulse Rate 91 07/16/24 00:00 Respiratory Rate 17 07/16/24 00:00 Blood Pressure 117/44 L 07/16/24 00:00 Pulse Oximetry 100 07/16/24 00:00 Oxygen Delivery Room Air 07/16/24 00:00 Temperature 36.7 C 07/16/24 03:07 Pulse Rate 90 07/16/24 03:16 Respiratory Rate 22 H 07/16/24 03:16 Blood Pressure 119/59 L 07/16/24 03:16 Pulse Oximetry 94 07/16/24 03:16 Oxygen Delivery Room Air 07/16/24 00:09 Medical Decision Making MDM Narrative Medical decision making narrative: differential diagnosis includes electrolyte abnormality, anemia, renal failure, electrolyte abnormality patient's troponin was 0.137 this has been chronically elevated in the patient just had thoracic surgery. The patient's creatinine is 3.2 but his potassium is 4.5 and CO2 is 33 CBC showed a hemoglobin of 5.7 this is significantly lower than where he has been in the past and a packed red blood cells has been ordered for the patient The case was discussed with both the hospitalist and Cardiology. Given the patient is on Coumadin at this time the and the fact that he is anemic we will not give him any additional anticoagulation even though he has elevated troponin until he is seen by Cardiology in the morning. Vital Signs Vital Signs: Vital Signs Temperature 37.2 C 07/16/24 00:00 Pulse Rate 91 07/16/24 00:00 Respiratory Rate 17 07/16/24 00:00 Blood Pressure 117/44 L 07/16/24 00:00 Pulse Oximetry 100 07/16/24 00:00 Oxygen Delivery Room Air 07/16/24 00:00 Temperature 36.7 C 07/16/24 03:07 Pulse Rate 90 07/16/24 03:16 Respiratory Rate 22 H 07/16/24 03:16 Blood Pressure 119/59 L 07/16/24 03:16 Pulse Oximetry 94 07/16/24 03:16 Oxygen Delivery Room Air 07/16/24 00:09 Lab Data 07/16/24 00:12 07/16/24 00:12 Labs: Lab Results 07/16/24 07/16/24 07/16/24 Range/Units 00:12 00:13 02:24 WBC 9.2 (4.5-10.0) K/mm3 RBC 1.95 L (4.6-6.20) M/mm3 Hgb 5.7 L* (14.0-18.0) g/dL Hct 19.1 L* (42.0-52.0) % MCV 97.9 (80-100) fl MCH 29.2 (26-34) pg MCHC 29.8 L (32-36) g/dl RDW 18.0 H (11.5-14.5) % Plt Count 271 D (150-375) k/mm3 MPV 9.7 (7.4-10.4) fl Immature Gran % (Auto) 0.5 (0-0.5) % Neut % (Auto) 79.8 H (45.5-73.1) % Lymph % (Auto) 13.0 L (18.3-44.2) % [place] % (Auto) 5.0 (2.6-8.5) % Eos % (Auto) 1.3 (0-4.4) % Baso % (Auto) 0.4 (0.2-1.2) % Lymph # (Auto) 1.20 (0.9-3.2) K/mm3 [place] # (Auto) 0.5 (0.1-0.6) K/mm3 Eos # (Auto) 0.1 (0-0.3) K/mm3 Baso # (Auto) 0.0 (0.0-0.1) K/mm3 Abs Immat Gran (auto) 0.05 H (0.00-0.031) K/mm3 Absolute Neuts (auto) 7.4 H (1.3-6.7) K/mm3 Absolute Nucleated RBC 0.000 (0.0-0.012) K/mm3 Nucleated RBC % 0.0 (0.0-0.2) % Platelet Estimate Adequate (Adequate) Hypochromasia 3+ Poikilocytosis 1+ Anisocytosis 2+ Ovalocytes 1+ Stomatocytes 1+ Schistocytes None seen Sodium 137 (137-145) mmol/L Potassium 4.5 (3.4-5.0) mmol/L Chloride 96 L (98-107) mmol/L Carbon Dioxide 33 H (22-30) mmol/L Anion Gap 8 (4-12) mmol/L BUN 46 H (9-20) mg/dL Creatinine 3.20 H (0.7-1.3) mg/dL Estim Creat Clear Calc 24 ml/min Estimated GFR 20 L (59 - ) Glucose 94 (65-110) mg/dL Calcium 7.9 L (8.4-10.2) mg/dL Total Bilirubin 1.0 (0.2-1.3) mg/dL AST 37 (17-59) U/L ALT 24 (6-50) U/L Alkaline Phosphatase 173 H (38-126) U/L Troponin I 0.137 H* 0.126 H* (0.000-0.034) ng/mL NT-Pro-B Natriuret Pep > 59875 H (19.9-100) pg/mL Total Protein 8.0 (6.3-8.2) g/dL Albumin 3.6 (3.5-5.1) g/dL Blood Type B Positive Antibody Screen Negative Crossmatch See Detail Discharge Plan Discharge Clinical Impression: End stage renal disease on dialysis, Anemia, Elevated troponin Patient Disposition: Still a Patient Condition: Stable Prescriptions: No Action sodium bicarbonate 650 mg tablet 650 mg PO BID Qty: 60 6RF cholecalciferol (vitamin D3) 50 mcg (2,000 unit) capsule 100 mcg PO DAILY Qty: 60 6RF Lokelma 10 gram powder in packet 10 g PO DAILY PRN (Reason: hyperkalemia) Follow-up/Referrals: Coco,Nevaeh Wills MD [Primary Care Provider] - Time of Disposition: 03:40
--- NOTE | 2024-07-16 02:41 | ECG_ITS ---
Test Date: 2024-07-16 02:50:33 Measurements Intervals [place] Rate: 91 P: 146 [place]: 256 QRS: -12 QRSD: 112 T: 150 QT: 364 QTc: 449 Interpretive Statements ELECTRONIC ATRIAL PACEMAKER ELECTRONIC VENTRICULAR PACEMAKER SUPRAVENTRICULAR BIGEMINY BASELINE ARTIFACT- I, II, AVR, AVL, AVF NO FURTHER INTERPRETATION IS POSSIBLE ABNORMAL ECG Compared to ECG 07/16/2024 00:12:54 NO SIGNIFICANT CHANGE Electronically Signed On 07-16-2024 07:49:13 DIRECTOR FRANCHISE SALES by Thony Rincon D.O.
--- NOTE | 2024-07-16 02:53 | ECG_ITS ---
Test Date: 2024-07-16 02:58:24 Measurements Intervals [place] Rate: 110 P: 132 MS: 234 QRS: -17 QRSD: 141 T: 157 QT: 380 QTc: 515 Interpretive Statements ELECTRONIC ATRIAL PACEMAKER WITH INHIBITION ELECTRONIC VENTRICULAR PACEMAKER WITH INHIBITION SUPRAVENTRICULAR BIGEMINY CHANGES TO SUPRAVENTRICULAR TACHYCARDIA AND BACK TO SUPRAVENTRICULAR BIGEMINY NO FURTHER INTERPRETATION IS POSSIBLE ABNORMAL ECG Compared to ECG 07/16/2024 02:50:33 BRIEF SUPRAVENTRICULAR TACHYCARDIA NOW PRESENT Electronically Signed On 07-16-2024 07:52:13 PHYSICIAN OFFICE REP by Thony Rincon D.O.
[2024-07-16] MEDS: TUBING, BLOOD SET 1 EACH XX (02:55)
[2024-07-16] MEDS: SODIUM CHLORIDE 0.9% IV 250 ML 30 ML IV CONT (02:55)
[2024-07-16 02:59] LABS: Troponin I 0.126 ng/mL (0.000-0.034)
--- NOTE | 2024-07-16 04:45 | PC.NURSE ---
Attempted to call report to IMU. RN needs to call me back.
--- NOTE | 2024-07-16 05:37 | PC.NURSE ---
This patient, Chau Cho, was admitted to IMU Room 200-01 07/16/24 at 0502. Patient/family oriented to hospital policies and general routines including ID bracelet, bed and alarms, visiting hours, pain management, procedures, bathroom and other care routines, personal items, smoking policy, room service/diet, and visiting hours. Information on how to activate the Rapid Response Team has been discussed. Patient/Family are encouraged to report perceived risks to care and to ask questions if they do not understand what they are told or what they should do.
[2024-07-16 05:38] LABS: Hematocrit 25.5 % (42.0-52.0); Hemoglobin 7.6 g/dL (14.0-18.0)
[2024-07-16 05:52] LABS: INR 3.4; Prothrombin Time 34.8 Seconds (11.1-14.7)
[2024-07-16 05:54] LABS: Partial Thromboplastin Time 93.8 Seconds (22.3-36.8)
[2024-07-16 07:17] LABS: Troponin I 0.132 ng/mL (0.000-0.034)
--- NOTE | 2024-07-16 07:57 | P.HP_ITS ---
H&P: HPI History of Present Illness Date/Time: 07/16/24 05:30 Chief Complaint: Shortness of breath, fast heart rate Narrative: 59-year-old male with past medical history obstructive sleep apnea, vascular disease, essential hypertension, chronic kidney disease, essential hypertension, and CHF due to valvular disease who presented to the ER from home due to acute onset of shortness of breath and tachycardia. Patient had echocardiogram during the hospitalization which demonstrated EF of 55-60% grade 1 diastolic dysfunction moderate to severe aortic stenosis, mobile echodensity ventricular aspect of the mitral valve with [id number] MR and trivial pericardial effusion. He also had acute on chronic kidney injury at that time and required hemodialysis after catheter was placed on 05/24/2024. The patient was hospitalized April 2024 due to shock secondary to sepsis with Enterobacter bacteremia thought to be due to infective endocarditis who was transferred to [facility] for further management. All at [facility] patient evidently received valvular surgery. The patient reports he had 3 valves replaced. He does not know if he had mechanical or tissue valve replacements but on exam patient does have audible click of a mechanical valve. The patient reports that this is a few hours prior to presentation he developed shortness of breath and tachycardia. He reports that he is having some chest tightness and a burning- type chest pain. Pain was improved after his placed on oxygen by EMS. He trish ed any weakness or lightheadedness. He stated that after he arrived to the ER he had a large volume black diarrheal stool that was associated with some lower abdominal cramping. He denied any associated nausea or vomiting. He has not had any fevers or chills. He did have another small bowel movement that was black and loose in appearance on arrival to the IMU. He did not have any lightheadedness or diaphoresis. He states that he was on 3 mg of Coumadin following his heart valve surgery. A few days ago he was told increases Coumadin to 4 mg on certain days but he had not managed to make it to the pharmacy to get the updated prescription. The patient's INR in the ER today was 3.4. Does not know what his goal INR should be. His hemoglobin on arrival to the ER was 5.7. He received 1 unit of packed red blood cells and his repeat hemoglobin was 7.6. The patient does reported distant history several years ago of GI bleed. He does not know AV had ulcers or if his GI bleed was due to lower GI source. Patient had had prior temporary dialysis in the fall of 2021, he also had tempo r[facility] dialysis in October 2022 through February 2023 and had initiation of dialysis during last hospitalization May 23. He is now undergoing hemodialysis Wednesday. Review of Systems Review of Systems: 12 systems were reviewed with pertinent positives and negatives per HPI. Except as documented in the HPI, all other systems were reviewed and are negative. He reports that he still makes urine. [facility] Past Medical History Medical History (Updated 07/16/24 @ 08:26 by Olivia Huston DO) Chronic anemia Chronic kidney disease Cirrhosis of liver With portal venous hypertension noted on CT of the abdomen pelvis April 2024 Complete heart block Status post pacemaker implantation. Diastolic dysfunction Endocarditis April 2024 History of blood transfusion History of pneumothorax Hypertension Restless legs syndrome Scrotum swelling Due to seroma Tobacco dependence Umbilical hernia Vitamin D deficiency Surgical History Surgical History (Updated 07/16/24 @ 08:15 by Olivia Huston DO) Aortic valve replaced History of inguinal hernia repair (2004) History of permanent cardiac pacemaker placement For complete heart block. History of renal stent Pacemaker Family History Family History Other Cerebrovascular accident Heart disease Hypertension Social History Social History (Updated 07/16/24 @ 08:19 by Olivia Huston DO) Social History: Patient lives with his father who was in his 80s. Patient reports that he smokes cigars on occasion. He denies any history of alcohol or illicit substance use. He is on disability after he fractured his back in 2004. 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 He and his were for 35 years prior to her . They had 5 biologic children and 10 adopted children. Surrogate medical decision maker: Flaco Cho (father) [phone]. Code status: Full code. Smoking packs per day: 0.5 Smoking cigarettes per day: 10.0 Years smoked: 20 Smoking pack-years: 10.00 Smoking status: Current some day smoker Tobacco type: cigars Additional smoking assessment comments: occasional cigar smoker Alcohol intake: never Substance use: former Substance use type: marijuana Other substance usage details: Cannabis Gummy Unknown Dose but uses for pain /discomfort Do You Feel Safe in your Home?: Yes Lack of Transportation: No Lack of Food: Never True Current Housing: I Have Housing Concerned About Future Housing: Decline to Answer Difficulty Paying Gas/Electric Bills: Decline to Answer Difficulty Paying for Meds: Decline to Answer Currently Unemployed: Decline to Answer Education: Decline to Answer Difficulty w/ Childcare or Family Care: Decline to Answer Living arrangements: with family Additional living arrangements comments: . Additional occupation/education comments: Disabled. Spiritual care concerns: No Meds Home Medications and Allergies Home Medications Medication Instructions Recorded Confirmed Type cholecalciferol (vitamin D3) 50 100 mcg PO DAILY #60 caps 04/07/23 07/16/24 Rx mcg (2,000 unit) capsule sodium zirconium cyclosilicate 10 10 g PO DAILY PRN hyperkalemia 10/13/23 07/16/24 History gram oral powder packet (Lokelma) benzonatate 100 mg capsule 100 mg PO TID PRN Cough 07/16/24 07/16/24 History carvedilol 3.125 mg tablet 3.125 mg PO QPM 07/16/24 07/16/24 History methocarbamol 500 mg tablet 500 mg PO TID PRN muscle cramps 07/16/24 07/16/24 History warfarin 3 mg tablet See Rx Instructions .Route .COMPLEX 07/16/24 07/16/24 History warfarin 4 mg tablet See Rx Instructions .Route .COMPLEX 07/16/24 07/16/24 History Allergies Allergy/AdvReac Type Severity Reaction Status Date / Time hornet venom Allergy Anaphylaxis Verified 07/16/24 05:41 morphine AdvReac Mild Agitated Verified 07/16/24 00:11 Vital Signs Vital Signs - 24 hr 07/16/24 00:00 07/16/24 00:09 07/16/24 00:09 Temperature 99.0 F Pulse Rate 91 90 Respiratory Rate 17 Blood Pressure 117/44 L Pulse Oximetry 100 100 Oxygen Delivery Room Air Room Air Oxygen Flow Rate 07/16/24 00:09 07/16/24 01:25 07/16/24 02:50 Temperature 99.0 F 97.9 F Pulse Rate 90 102 H 97 Respiratory Rate 20 20 20 Blood Pressure 112/41 L 114/73 123/49 L Pulse Oximetry 100 97 95 Oxygen Delivery Oxygen Flow Rate 07/16/24 03:07 07/16/24 03:16 07/16/24 04:07 Temperature 98.0 F 97.8 F Pulse Rate 89 90 90 Respiratory Rate 22 H 22 H 23 H Blood Pressure 119/59 L 119/59 L 139/58 L Pulse Oximetry 94 94 97 Oxygen Delivery Oxygen Flow Rate 07/16/24 04:15 07/16/24 04:15 07/16/24 05:41 Temperature 97.8 F 97.8 F 98.1 F Pulse Rate 90 90 90 Respiratory Rate 23 H 23 H 20 Blood Pressure 139/58 L 139/58 L 134/57 L Pulse Oximetry 97 97 97 Oxygen Delivery Oxygen Flow Rate 07/16/24 06:21 07/16/24 07:21 07/16/24 06:00 Temperature 98.3 F Pulse Rate 90 89 94 Respiratory Rate 14 Blood Pressure 117/58 L 113/45 L Pulse Oximetry 95 96 Oxygen Delivery Oxygen Flow Rate 07/16/24 05:11 07/16/24 06:20 Temperature Pulse Rate 93 Respiratory Rate Blood Pressure Pulse Oximetry 95 Oxygen Delivery Nasal Cannula Oxygen Flow Rate 1 Exam Narrative: Weight 98.1 kg BMI 31 Const: Other: Chronically ill-appearing, appears older than stated age, no acute distress HENMT: Other: Mucous membranes are tacky, poor dentition with multiple dental caries and missing teeth, thick white plaquing on the teeth and at the gumline Eyes: Other: Marked conjunctival pallor, no scleral icterus, pupils are equal and reactive Neck: Other: No JVD, large neck circumference Resp: Other: Decreased breath sounds at the bases, no increased work of breathing Cardio: Other: Regular rate, patient has mechanical click, no JVD GI: Other: Obese abdomen, soft, nontender : Other: Scrotal edema Skin: Other: Marked pallor, non jaundice, few scattered bruises to the dorsums of the arms, no petechia Neuro: Other: Alert oriented x4, speech is clear, no facial asymmetry, no localizing neurologic deficits noted during the course of conversation Extrem: Other: No clubbing, cyanosis or edema Psych: Other: Appropriate mood and affect, cooperative, fair judgment and insight H&P: Results Labs Labs: Short CBC 07/16/24 07/16/24 Range/Units 00:12 05:27 WBC 9.2 (4.5-10.0) K/mm3 Hgb 5.7 L* 7.6 L (14.0-18.0) g/dL Hct 19.1 L* 25.5 L (42.0-52.0) % Plt Count 271 D (150-375) k/mm3 [facility] 07/16/24 00:12 Sodium 137 Potassium 4.5 Chloride 96 L Carbon Dioxide 33 H BUN 46 H Creatinine 3.20 H Glucose 94 Calcium 7.9 L Cardiac Enzymes 07/16/24 07/16/24 07/16/24 Range/Units 00:12 02:24 05:27 Troponin I 0.137 H* 0.126 H* 0.132 H* (0.000-0.034) ng/mL Liver Function 07/16/24 Range/Units 00:12 Total Bilirubin 1.0 (0.2-1.3) mg/dL AST 37 (17-59) U/L ALT 24 (6-50) U/L Alkaline Phosphatase 173 H (38-126) U/L Albumin 3.6 (3.5-5.1) g/dL Laboratory Tests 07/16/24 05:27 07/16/24 00:12 07/16/24 07/16/24 07/16/24 00:12 00:13 02:24 WBC 9.2 RBC 1.95 L Hgb 5.7 L* Hct 19.1 L* MCV 97.9 MCH 29.2 MCHC 29.8 L RDW 18.0 H Plt Count 271 D MPV 9.7 Immature Gran % (Auto) 0.5 Neut % (Auto) 79.8 H Lymph % (Auto) 13.0 L [place] % (Auto) 5.0 Eos % (Auto) 1.3 Baso % (Auto) 0.4 Lymph # (Auto) 1.20 [place] # (Auto) 0.5 Eos # (Auto) 0.1 Baso # (Auto) 0.0 Abs Immat Gran (auto) 0.05 H Absolute Neuts (auto) 7.4 H Absolute Nucleated RBC 0.000 Nucleated RBC % 0.0 Platelet Estimate Adequate Hypochromasia 3+ Poikilocytosis 1+ Anisocytosis 2+ Ovalocytes 1+ Stomatocytes 1+ Schistocytes None seen PT INR APTT Sodium 137 Potassium 4.5 Chloride 96 L Carbon Dioxide 33 H Anion Gap 8 BUN 46 H Creatinine 3.20 H Estim Creat Clear Calc 24 Estimated GFR 20 L Glucose 94 Calcium 7.9 L Total Bilirubin 1.0 AST 37 ALT 24 Alkaline Phosphatase 173 H Troponin I 0.137 H* 0.126 H* NT-Pro-B Natriuret Pep > 26383 H Total Protein 8.0 Albumin 3.6 Nasal MRSA (PCR) Stl Occult Blood (IFOB) Blood Type B Positive Antibody Screen Negative Crossmatch See Detail 07/16/24 07/16/24 05:27 06:59 WBC RBC Hgb 7.6 L Hct 25.5 L MCV MCH MCHC RDW Plt Count MPV Immature Gran % (Auto) Neut % (Auto) Lymph % (Auto) [place] % (Auto) Eos % (Auto) Baso % (Auto) Lymph # (Auto) [place] # (Auto) Eos # (Auto) Baso # (Auto) Abs Immat Gran (auto) Absolute Neuts (auto) Absolute Nucleated RBC Nucleated RBC % Platelet Estimate Hypochromasia Poikilocytosis Anisocytosis Ovalocytes Stomatocytes Schistocytes PT 34.8 H INR 3.4 APTT 93.8 H Sodium Potassium Chloride Carbon Dioxide Anion Gap BUN Creatinine Estim Creat Clear Calc Estimated GFR Glucose Calcium Total Bilirubin AST ALT Alkaline Phosphatase Troponin I 0.132 H* NT-Pro-B Natriuret Pep Total Protein Albumin Nasal MRSA (PCR) Pending Stl Occult Blood (IFOB) Pending Blood Type Antibody Screen Crossmatch Chest x-ray: Personally reviewed and interpreted. Radiologic interpretation pending. Bilateral pleural effusions noted, dialysis catheter in the right chest, is ring opacity in the position consistent with likely valve annuloplasty. Assessment and Plan Assessment and plan (1) Acute on chronic anemia: Code(s): D64.9 - Anemia, unspecified Status: Acute (2) Melanotic stools: Code(s): K92.1 - Melena Status: Acute (3) Elevated troponin: Code(s): R79.89 - Other specified abnormal findings of blood chemistry Status: Acute (4) End-stage renal disease on hemodialysis: Code(s): N18.6 - End stage renal disease; Z99.2 - Dependence on renal dialysis Status: Acute (5) Chest pain: Qualifiers: Chest pain type: unspecified Qualified Code(s): R07.9 - Chest pain, unspecified Code(s): R07.9 - Chest pain, unspecified Status: Acute (6) Aortic valve replaced: Code(s): Z95.2 - Presence of prosthetic heart valve Status: Acute (7) Presence of other heart-valve replacement: Code(s): Z95.4 - Presence of other heart-valve replacement Status: Acute Plan Patient has acute on chronic anemia likely due to GI blood loss given presence of melenic stools. This is complicated by the patient's history of recent heart valve surgery and chronic anticoagulation with Coumadin. Patient's hemoglobin has improved after 1 unit blood transfusion. Per Cardiology recommendations Coumadin has been held. The given presence of melenic stools that occurred with acute onset in the ER (patient's prior bowel movement earlier in the day had been brown in color per his report) is as if patient may have acute GI bleed. Patient is subsequently with made NPO. Gastroenterology has been consulted. Will monitor serial H&Hs. Will await further recommendations from Cardiology. Cardiology should have access to the records regarding patient's recent valve replacements/type of valve replacements. I suspect the patient's INR goal is supposed be was weaned 2.5 in 3.5 but will defer management to Cardiology. The patient been placed on Protonix and Gastroenterology has been consulted. Will resume patient's home Coreg. Patient was having chest pain. This could be due to cardiac ischemia given the patient's recent cardiac surgery, relative hypoperfusion due to anemia or could be due to GI causes of chest pain. Patient's troponins were elevated but troponin profile was flat. EKGs were personally reviewed interpreted demonstrated atrial paced rhythm with ventricular the spikes is will. QTC was elevated at 515. Multiple EKGs were reviewed with rates 91-110. Cardiology has been consulted as discussed above. Blood cultures have been obtained given the patient has dialysis catheter in place and given prior history of endocarditis. Patient's white count is currently normal and he is afebrile. Will continue to monitor. Patient has been admitted as observation status. Quality VTE Prophylaxis VTE prophylaxis: mechanical ordered (SCDs) Hospitalist MIPS Advance Care Plan I have confirmed that the patient's Advanced Care Plan is present, code status is documented, or surrogate decision maker is listed in patient medical record.: Yes Medication Reconciliation I have utilized all available resources to obtain, update and review the patients current medications (includes all prescriptions, OTC, herbals, can nabis, and nutritional supplements).: Yes
--- NOTE | 2024-07-16 08:08 | P.PNIM_ITS ---
Progress Note: A&P Assessment and Plan (1) Acute on chronic anemia: Code(s): D64.9 - Anemia, unspecified Status: Acute (2) Melanotic stools: Code(s): K92.1 - Melena Status: Acute (3) Elevated troponin: Code(s): R79.89 - Other specified abnormal findings of blood chemistry Status: Acute (4) End-stage renal disease on hemodialysis: Code(s): N18.6 - End stage renal disease; Z99.2 - Dependence on renal dialysis Status: Acute (5) Chest pain: Qualifiers: Chest pain type: unspecified Qualified Code(s): R07.9 - Chest pain, unspecified Code(s): R07.9 - Chest pain, unspecified Status: Acute (6) Aortic valve replaced: Code(s): Z95.2 - Presence of prosthetic heart valve Status: Acute (7) Presence of other heart-valve replacement: Code(s): Z95.4 - Presence of other heart-valve replacement Status: Acute Plan This is a 59-year-old male who presents to the ED with chest pain and shortness of breath. She was recently discharged from [facility] after his valve surgery about a week ago. He has been on anticoagulation with warfarin.He also reported associated generalized weakness. His vitals were stable on ED evaluation. Laboratory workup revealed hemoglobin of 5.7. His discharge hemoglobin was 7.7. He reported some dark stool. Suggesting GI blood loss. He received 1 unit of packed red blood cell transfusion with appropriate rise this a.m.. GI has been consulted and plan for EGD in a.m.. Will continue to monitor H& H. FOBT was also positive. On PPI b.i.d.. Warfarin on hold His troponin came back elevated but remained flat. Likely due to anemia and/or underlying end-stage renal disease. Cardiology has been consulted. INR supratherapeutic at 3.4. End-stage renal disease on hemodialysis recently started from April 2024 Acute on chronic anemia related to GI blood loss Prior history of endocarditis Cirrhosis of liver Moderate to severe mitral valve endocarditisWith Enterobacter bacteremia in April 2024 DVT prophylaxis SCDs Code status full code Subjective Date/time seen: 07/16/24 08:08 Interval history: reports dark stool. Feels better today. No chest pain or shortness of breath. History and chart reviewed. Discussed with the nursing staff. Review of Systems Review of Systems: All systems reviewed & are unremarkable except as noted in HPI and below Exam Narrative: GENERAL: Well-appearing, well-nourished, and in no acute distress. HEAD: Normocephalic, atraumatic. EYES: PERRLA and EOMI. ENT: Nares clear, no rhinorrhea or epistaxis. Mucous membranes moist. NECK: Supple. CHEST: Clear to auscultation. No respiratory distress. HEART: Regular rate and rhythm. No murmur heard. Normal peripheral pulses. ABDOMEN: Soft, nontender, nondistended, normal active bowel sounds. EXTREMITIES: Normal range of motion. No edema. SKIN: Warm, dry, no rash. NEURO: No focal deficits. Alert and oriented x3. PSYCH: Normal mood and affect. Objective Data Vital Signs Vital Signs: Vital Signs - 24 hr 07/16/24 00:00 07/16/24 00:09 07/16/24 00:09 Temperature 99.0 F Pulse Rate 91 90 Respiratory Rate 17 Blood Pressure 117/44 L Pulse Oximetry 100 100 Oxygen Delivery Room Air Room Air Oxygen Flow Rate 07/16/24 00:09 07/16/24 01:25 07/16/24 02:50 Temperature 99.0 F 97.9 F Pulse Rate 90 102 H 97 Respiratory Rate 20 20 20 Blood Pressure 112/41 L 114/73 123/49 L Pulse Oximetry 100 97 95 Oxygen Delivery Oxygen Flow Rate 07/16/24 03:07 07/16/24 03:16 07/16/24 04:07 Temperature 98.0 F 97.8 F Pulse Rate 89 90 90 Respiratory Rate 22 H 22 H 23 H Blood Pressure 119/59 L 119/59 L 139/58 L Pulse Oximetry 94 94 97 Oxygen Delivery Oxygen Flow Rate 07/16/24 04:15 07/16/24 04:15 07/16/24 05:41 Temperature 97.8 F 97.8 F 98.1 F Pulse Rate 90 90 90 Respiratory Rate 23 H 23 H 20 Blood Pressure 139/58 L 139/58 L 134/57 L Pulse Oximetry 97 97 97 Oxygen Delivery Oxygen Flow Rate 07/16/24 06:21 07/16/24 07:21 07/16/24 06:00 Temperature 98.3 F Pulse Rate 90 89 94 Respiratory Rate 14 Blood Pressure 117/58 L 113/45 L Pulse Oximetry 95 96 Oxygen Delivery Oxygen Flow Rate 07/16/24 05:11 07/16/24 06:20 Temperature Pulse Rate 93 Respiratory Rate Blood Pressure Pulse Oximetry 95 Oxygen Delivery Nasal Cannula Oxygen Flow Rate 1 Intake/Output Intake/Output: Intake & Output 07/13/24 07/14/24 07/15/24 07/16/24 23:59 23:59 23:59 23:59 Intake Total 600 Balance 600 Meds/Results Medications: Active Medications Generic Name Dose Route Start Last Admin Trade Name Omariq PRN Reason Stop Dose Admin Sodium Chloride 250 mls @ 30 mls/hr 07/16/24 02:07 07/16/24 04:15 Normal Saline Iv IV CONT 07/16/24 10:26 Infused .[id number] STA Infusion Labs Labs: Laboratory Results - last 24 hr 07/16/24 07/16/24 07/16/24 00:12 00:13 02:24 WBC 9.2 RBC 1.95 L Hgb 5.7 L* Hct 19.1 L* MCV 97.9 MCH 29.2 MCHC 29.8 L RDW 18.0 H Plt Count 271 D MPV 9.7 Immature Gran % (Auto) 0.5 Neut % (Auto) 79.8 H Lymph % (Auto) 13.0 L [place] % (Auto) 5.0 Eos % (Auto) 1.3 Baso % (Auto) 0.4 Lymph # (Auto) 1.20 [place] # (Auto) 0.5 Eos # (Auto) 0.1 Baso # (Auto) 0.0 Abs Immat Gran (auto) 0.05 H Absolute Neuts (auto) 7.4 H Absolute Nucleated RBC 0.000 Nucleated RBC % 0.0 Platelet Estimate Adequate Hypochromasia 3+ Poikilocytosis 1+ Anisocytosis 2+ Ovalocytes 1+ Stomatocytes 1+ Schistocytes None seen PT INR APTT Sodium 137 Potassium 4.5 Chloride 96 L Carbon Dioxide 33 H Anion Gap 8 BUN 46 H Creatinine 3.20 H Estim Creat Clear Calc 24 Estimated GFR 20 L Glucose 94 Calcium 7.9 L Total Bilirubin 1.0 AST 37 ALT 24 Alkaline Phosphatase 173 H Troponin I 0.137 H* 0.126 H* NT-Pro-B Natriuret Pep > 36225 H Total Protein 8.0 Albumin 3.6 Blood Type B Positive Antibody Screen Negative Crossmatch See Detail 07/16/24 05:27 WBC RBC Hgb 7.6 L Hct 25.5 L MCV MCH MCHC RDW Plt Count MPV Immature Gran % (Auto) Neut % (Auto) Lymph % (Auto) [place] % (Auto) Eos % (Auto) Baso % (Auto) Lymph # (Auto) [place] # (Auto) Eos # (Auto) Baso # (Auto) Abs Immat Gran (auto) Absolute Neuts (auto) Absolute Nucleated RBC Nucleated RBC % Platelet Estimate Hypochromasia Poikilocytosis Anisocytosis Ovalocytes Stomatocytes Schistocytes PT 34.8 H INR 3.4 APTT 93.8 H Sodium Potassium Chloride Carbon Dioxide Anion Gap BUN Creatinine Estim Creat Clear Calc Estimated GFR Glucose Calcium Total Bilirubin AST ALT Alkaline Phosphatase Troponin I 0.132 H* NT-Pro-B Natriuret Pep Total Protein Albumin Blood Type Antibody Screen Crossmatch
[2024-07-16 08:42] LABS: IFOB Positive Control Positive; Immunochemical Fecal Occult Bl Positive (N)
--- NOTE | 2024-07-16 09:12 | P.CONNP_ITS ---
Assessment and Plan Assessment and plan (1) XOCHITL (acute kidney injury): Code(s): N17.9 - Acute kidney failure, unspecified Status: Acute Assessment and Plan: the patient has renal failure. Not clear whether this is acute or chronic. He gets dialysis 3 times a week with a catheterization at [facility]. His dialyses have been going well. The got all of his fluid off on Wednesday. He does have pleural effusions and so probably needs a lower dry weight. Will try for 3-4 L tomorrow (2) Tobacco dependence: Code(s): F17.200 - Nicotine dependence, unspecified, uncomplicated Status: Acute Assessment and Plan: The patient smokes cigars. (3) Heart valve replaced: Code(s): Z95.2 - Presence of prosthetic heart valve Status: Acute Assessment and Plan: The patient has 3 valve replacements. His heart is well compensated currently. He did have tachycardia on admission, probably due to the severe anemia. Troponins are positive however only mildly and these are flat. Cardiology has been consulted (4) Erythropoietin deficiency anemia: Code(s): D63.1 - Anemia in chronic kidney disease Status: Acute Assessment and Plan: hemoglobin was very it low on admission. Will check stool guaiacs and iron studies as well as a retake count. He will get Epogen with dialysis (5) Hyperphosphatemia: Code(s): E83.39 - Other disorders of phosphorus metabolism Status: Acute Assessment and Plan: will check a phosphorus level in the morning History of Present Illness Reason for Consult Consult date: 07/16/24 Chief Complaint Chief complaint: Acute anemia, ESRD on HD elevated troponin History of Present Illness Narrative: Chau is a very pleasant 59-year-old gentleman who has multiple medical problems including renal failure on dialysis, anemia, CKD MBD, cirrhosis, heart disease including please heart block status post pacemaker implantation, 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 Patient gets dialysis 3 times a week on Wednesdays and Fridays at [facility] under the care of Dr. Ramos. he did go on Wednesday and they got all the fluid off. He did not have any problems with the dialysis. The patient says that he had shortness of breath and fast heart rate at home. He came to the ER right away. The ER and they evaluated him. was found to be tach ycardic and very anemic with a hemoglobin of only 5.7. He needed a little bit of oxygen but not much. Chest x-ray showed pleural effusions. Monitor showed tachycardia. He was treated , transfused, and given oxygen and felt better. He was admitted to step-down. The patient says that he feels much better today. He has no swelling. He has a history of hypertension on his chart but the patient denies hypertension or diabetes. The patient does not drink. He smokes cigars occasionally out on the patio. Review of Systems Constitutional: Constitutional: Reports no additional constitutional complaints Eyes: Eyes: Reports no additional eye complaints ENT: Reports system reviewed and no additional complaints, except as documented Cardiovascular: Cardiovascular: Reports no additional cardiovascular complaints Respiratory: Respiratory: Reports no additional respiratory complaints Gastrointestinal: Gastrointestinal: Reports no additional gastrointestinal complaints Genitourinary: Genitourinary: Reports no additional male genitourinary complaints Musculoskeletal: Musculoskeletal: Reports no additional musculoskeletal compla ints Integumentary/Breasts: Skin/Breast: Reports system reviewed and no additional complaints, except as docu Neurologic: Reports system reviewed and no additional complaints, except as documented Psychiatric: Psychiatric: Reports no additional psychiatric complaints Endocrine: Endocrine: Reports no additional endocrine complaints [facility] Past Medical History Medical History Chronic anemia Chronic kidney disease Cirrhosis of liver With portal venous hypertension noted on CT of the abdomen pelvis April 2024 Complete heart block Status post pacemaker implantation. Diastolic dysfunction Endocarditis April 2024 History of blood transfusion History of pneumothorax Hypertension Restless legs syndrome Scrotum swelling Due to seroma Tobacco dependence Umbilical hernia Vitamin D deficiency Surgical History Surgical History Aortic valve replaced History of inguinal hernia repair (2004) History of permanent cardiac pacemaker placement For complete heart block. History of renal stent Pacemaker Family History Family History Other Cerebrovascular accident Heart disease Hypertension Social History Social History Social History: Patient lives with his father who was in his 80s. Patient reports that he smokes cigars on occasion. He denies any history of alcohol or illicit substance use. He is on disability after he fractured his back in 2004. 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 He and his were for 35 years prior to her . They had 5 biologic children and 10 adopted children. Surrogate medical decision maker: Flaco Cho (father) [phone]. Code status: Full code. Smoking packs per day: 0.5 Smoking cigarettes per day: 10.0 Years smoked: 20 Smoking pack-years: 10.00 Smoking status: Current some day smoker Tobacco type: cigars Additional smoking assessment comments: occasional cigar smoker Alcohol intake: never Substance use: former Substance use type: marijuana Other substance usage details: Cannabis Gummy Unknown Dose but uses for pain/discomfort Do You Feel Safe in your Home?: Yes Lack of Transportation: No Lack of Food: Never True Current Housing: I Have Housing Concerned About Future Housing: Decline to Answer Difficulty Paying Gas/Electric Bills: Decline to Answer Difficulty Paying for Meds: Decline to Answer Currently Unemployed: Decline to Answer Education: Decline to Answer Difficulty w/ Childcare or Family Care: Decline to Answer Living arrangements: with family Additional living arrangements comments: . Additional occupation/education comments: Disabled. Spiritual care concerns: No Meds Home Medications and Allergies Home Medications Medication Instructions Recorded Confirmed Type cholecalciferol (vitamin D3) 50 100 mcg PO DAILY #60 caps 04/07/23 07/16/24 Rx mcg (2,000 unit) capsule sodium zirconium cyclosilicate 10 10 g PO DAILY PRN hyperkalemia 10/13/23 07/16/24 History gram oral powder packet (Lokelma) benzonatate 100 mg capsule 100 mg PO TID PRN Cough 07/16/24 07/16/24 History carvedilol 3.125 mg tablet 3.125 mg PO QPM 07/16/24 07/16/24 History methocarbamol 500 mg tablet 500 mg PO TID PRN muscle cramps 07/16/24 07/16/24 History warfarin 3 mg tablet See Rx Instructions .Route .COMPLEX 07/16/24 07/16/24 History warfarin 4 mg tablet See Rx Instructions .Route .COMPLEX 07/16/24 07/16/24 History Allergies Allergy/AdvReac Type Severity Reaction Status Date / Time hornet venom Allergy Anaphylaxis Verified 07/16/24 05:41 morphine AdvReac Mild Agitated Verified 07/16/24 00:11 Vital Signs Vital Signs - 24 hr 07/16/24 00:00 07/16/24 00:09 07/16/24 00:09 Temperature 99.0 F Pulse Rate 91 90 Respiratory Rate 17 Blood Pressure 117/44 L Pulse Oximetry 100 100 Oxygen Delivery Room Air Room Air Oxygen Flow Rate Fraction of Inspired Oxygen 07/16/24 00:09 07/16/24 01:25 07/16/24 02:50 Temperature 99.0 F 97.9 F Pulse Rate 90 102 H 97 Respiratory Rate 20 20 20 Blood Pressure 112/41 L 114/73 123/49 L Pulse Oximetry 100 97 95 Oxygen Delivery Oxygen Flow Rate Fraction of Inspired Oxygen 07/16/24 03:07 07/16/24 03:16 07/16/24 04:07 Temperature 98.0 F 97.8 F Pulse Rate 89 90 90 Respiratory Rate 22 H 22 H 23 H Blood Pressure 119/59 L 119/59 L 139/58 L Pulse Oximetry 94 94 97 Oxygen Delivery Oxygen Flow Rate Fraction of Inspired Oxygen 07/16/24 04:15 07/16/24 04:15 07/16/24 05:41 Temperature 97.8 F 97.8 F 98.1 F Pulse Rate 90 90 90 Respiratory Rate 23 H 23 H 20 Blood Pressure 139/58 L 139/58 L 134/57 L Pulse Oximetry 97 97 97 Oxygen Delivery Oxygen Flow Rate Fraction of Inspired Oxygen 07/16/24 06:21 07/16/24 07:21 07/16/24 06:00 Temperature 98.3 F Pulse Rate 90 89 94 Respiratory Rate 14 Blood Pressure 117/58 L 113/45 L Pulse Oximetry 95 96 Oxygen Delivery Oxygen Flow Rate Fraction of Inspired Oxygen 07/16/24 05:11 07/16/24 06:20 07/16/24 08:17 Temperature Pulse Rate 93 Respiratory Rate Blood Pressure Pulse Oximetry 95 96 Oxygen Delivery Nasal Cannula Nasal Cannula Oxygen Flow Rate 1 2 Fraction of Inspired Oxygen 28 Exam Narrative: Exam Narrative: Well developed well-nourished male in no acute distress Skin is warm and dry without rash Head normocephalic atraumatic Eyes normal sclerae and conjunctivae Mouth normal lips teeth and gums Neck no nodes no thyromegaly no carotid bruits Axillae no nodes Back no CVA tenderness Lungs symmetric and clear to auscultation and percussion Heart regular rate and rhythm without rub or gallop. 2/6 Systolic murmur and a valve click. Abdomen bowel sounds positive soft nontender, no HSM, masses, or bruits. Extremities no cyanosis, clubbing, or edema Pulses 2+ equal in radial arteries Psychological not anxious or depressed Neuro alert and oriented x3 motor 5/5 cranial nerves 2-12 intact reflexes 2+ and equal in the biceps and patellar tendons cerebellar normal rapid alternating movements Results Lab Results 07/16/24 05:27 07/16/24 00:12 Lab results: Most recent lab results Calcium 7.9 mg/dL (8.4-10.2) L 07/16/24 00:12
[2024-07-16 09:32] LABS: Immature Reticulocyte Fraction 37.5 % (3.0-15.9); Reticulocyte Hemoglobin Conten 27.7 pg (28.2-36.6); Reticulocyte Percent 3.72 % (0.7-4.3); Reticulocytes Absolute 0.07 10^6/uL (0.02-0.10)
[2024-07-16] MEDS: PANTOPRAZOLE SODIUM IV 40 MG VIAL IV PUSH ×2 (09:47→20:56)
[2024-07-16] MEDS: CHOLECALCIFEROL 1,000 UNITS TABLET 4000 UNITS PO (09:47)
--- NOTE | 2024-07-16 09:59 | P.CONCA_ITS ---
Assessment and Plan Assessment and plan (1) Heart valve replaced: Code(s): Z95.2 - Presence of prosthetic heart valve Status: Acute Plan 59-year-old man with endocarditis and severe sp 25mm On-X AVR with root repair using bovine percardial patch, 31mm [place] MVR with annular repair, and TVr with 28mm annuloplasty ring presents with melena associated with shortness of breath and chest pain Chest pain -demand related secondary to acute anemia which now has resolved with blood transfusion Shortness of breath -demand related secondary to acute anemia which now has resolved with blood transfusion -will need aggressive ultrafiltration with dialysis given pleural effusions Mechanical valves; review of outside records show the following: -25mm On-X AVR with root repair using bovine percardial patch -31mm [place] MVR with annular repair -TVr with 28mm annuloplasty ring -goal INR should be 3-3.5 given fresh mechanical valves -INR currently at 3.4 and can not hold warfarin tonight in anticipation for endoscopy tomorrow -showed INR falls below 3, would start heparin drip Hypertension -goal systolic blood pressure less than 140 in setting of acute bleed -can hold antihypertensives at this time Acute anemia -secondary to bleed -stabilized with transfusion for now -plan for endoscopy History of Present Illness History of Present Illness Consult date/time: 07/16/24 09:59 Requesting physician: Michael Freire MD Consult reason: Other Reason For Visit: Acute anemia, ESRD on HD elevated troponin Narrative: 59-year-old man with endocarditis and severe sp 25mm On-X AVR with root repair using bovine percardial patch, 31mm [place] MVR with annular repair, and TVr with 28mm annuloplasty ring presents with melena associated with shortness of breath and chest pain. His chest pain and shortness breath significantly improved after blood transfusion for stabilization of his acute anemia. He is currently doing well and no longer has any episodes of melena. Review of Systems Constitutional: Constitutional: Reports as per HPI Cardiovascular: Cardiovascular: Reports as per HPI Respiratory: Respiratory: Reports as per HPI PENDING SALE TO [facility] Past Medical History Medical History Chronic anemia Chronic kidney disease Cirrhosis of liver With portal venous hypertension noted on CT of the abdomen pelvis April 2024 Complete heart block Status post pacemaker implantation. Diastolic dysfunction Endocarditis April 2024 History of blood transfusion History of pneumothorax Hypertension Restless legs syndrome Scrotum swelling Due to seroma Tobacco dependence Umbilical hernia Vitamin D deficiency Surgical History Surgical History Aortic valve replaced History of inguinal hernia repair (2004) History of permanent cardiac pacemaker placement For complete heart block. History of renal stent Pacemaker Family History Family History Other Cerebrovascular accident Heart disease Hypertension Social History Social History Social History: Patient lives with his father who was in his 80s. Patient reports that he smokes cigars on occasion. He denies any history of alcohol or illicit substance use. He is on disability after he fractured his back in 2004. 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 He and his were for 35 years prior to her . They had 5 biologic children and 10 adopted children. Surrogate medical decision maker: Flaco Cho (father) [phone]. Code status: Full code. Smoking packs per day: 0.5 Smoking cigarettes per day: 10.0 Years smoked: 20 Smoking pack-years: 10.00 Smoking status: Current some day smoker Tobacco type: cigars Additional smoking assessment comments: occasional cigar smoker Alcohol intake: never Substance use: former Substance use type: marijuana Other substance usage details: Cannabis Gummy Unknown Dose but uses for pain/discomfort Do You Feel Safe in your Home?: Yes Lack of Transportation: No Lack of Food: Never True Current Housing: I Have Housing Concerned About Future Housing: Decline to Answer Difficulty Paying Gas/Electric Bills: Decline to Answer Difficulty Paying for Meds: Decline to Answer Currently Unemployed: Decline to Answer Education: Decline to Answer Difficulty w/ Childcare or Family Care: Decline to Answer Living arrangements: with family Additional living arrangements comments: . Additional occupation/education comments: Disabled. Spiritual care concerns: No Meds Home Medications and Allergies Home Medications Medication Instructions Recorded Confirmed Type cholecalciferol (vitamin D3) 50 100 mcg PO DAILY #60 caps 04/07/23 07/16/24 Rx mcg (2,000 unit) capsule sodium zirconium cyclosilicate 10 10 g PO DAILY PRN hyperkalemia 10/13/23 07/16/24 History gram oral powder packet (Lokelma) benzonatate 100 mg capsule 100 mg PO TID PRN Cough 07/16/24 07/16/24 History carvedilol 3.125 mg tablet 3.125 mg PO QPM 07/16/24 07/16/24 History methocarbamol 500 mg tablet 500 mg PO TID PRN muscle cramps 07/16/24 07/16/24 History warfarin 3 mg tablet See Rx Instructions .Route .COMPLEX 07/16/24 07/16/24 History warfarin 4 mg tablet See Rx Instructions .Route .COMPLEX 07/16/24 07/16/24 History Allergies Allergy/AdvReac Type Severity Reaction Status Date / Time hornet venom Allergy Anaphylaxis Verified 07/16/24 05:41 morphine AdvReac Mild Agitated Verified 07/16/24 00:11 Vital Signs Vital Signs - 24 hr 07/16/24 00:00 07/16/24 00:09 07/16/24 00:09 Temperature 37.2 C Pulse Rate 91 90 Respiratory Rate 17 Blood Pressure 117/44 L Pulse Oximetry 100 100 Oxygen Delivery Room Air Room Air Oxygen Flow Rate Fraction of Inspired Oxygen 07/16/24 00:09 07/16/24 01:25 07/16/24 02:50 Temperature 37.2 C 36.6 C Pulse Rate 90 102 H 97 Respiratory Rate 20 20 20 Blood Pressure 112/41 L 114/73 123/49 L Pulse Oximetry 100 97 95 Oxygen Delivery Oxygen Flow Rate Fraction of Inspired Oxygen 07/16/24 03:07 07/16/24 03:16 07/16/24 04:07 Temperature 36.7 C 36.6 C Pulse Rate 89 90 90 Respiratory Rate 22 H 22 H 23 H Blood Pressure 119/59 L 119/59 L 139/58 L Pulse Oximetry 94 94 97 Oxygen Delivery Oxygen Flow Rate Fraction of Inspired Oxygen 07/16/24 04:15 07/16/24 04:15 07/16/24 05:41 Temperature 36.6 C 36.6 C 36.7 C Pulse Rate 90 90 90 Respiratory Rate 23 H 23 H 20 Blood Pressure 139/58 L 139/58 L 134/57 L Pulse Oximetry 97 97 97 Oxygen Delivery Oxygen Flow Rate Fraction of Inspired Oxygen 07/16/24 06:21 07/16/24 07:21 07/16/24 06:00 Temperature 36.8 C Pulse Rate 90 89 94 Respiratory Rate 14 Blood Pressure 117/58 L 113/45 L Pulse Oximetry 95 96 Oxygen Delivery Oxygen Flow Rate Fraction of Inspired Oxygen 07/16/24 05:11 07/16/24 06:20 07/16/24 08:17 Temperature Pulse Rate 93 Respiratory Rate Blood Pressure Pulse Oximetry 95 96 Oxygen Delivery Nasal Cannula Nasal Cannula Oxygen Flow Rate 1 2 Fraction of Inspired Oxygen 28 Exam Const: General: comfortable HENMT: Mouth: Yes moist mucous membranes Eyes: EOM: EOMs intact bilaterally Neck: Neck: no JVD Resp: Effort & Inspection: normal respiratory effort Auscultation: diminished lung sounds Cardio: Rate: regular rate Rhythm: regular rhythm Other: Mechanical S1 and mechanical S2 GI: GI Palp: Yes Soft to palpation Other: Pacemaker pocket Neuro: Speech: normal speech Results Labs and Meds 07/16/24 05:27 07/16/24 00:12 Lab results: Cardiac Enzymes 07/16/24 07/16/24 07/16/24 Range/Units 00:12 02:24 05:27 AST 37 (17-59) U/L Troponin I 0.137 H* 0.126 H* 0.132 H* (0.000-0.034) ng/mL Coagulation 07/16/24 Range/Units 05:27 PT 34.8 H (11.1-14.7) Seconds APTT 93.8 H (22.3-36.8) Seconds CBC 07/16/24 07/16/24 Range/Units 00:12 05:27 WBC 9.2 (4.5-10.0) K/mm3 RBC 1.95 L (4.6-6.20) M/mm3 Hgb 5.7 L* 7.6 L (14.0-18.0) g/dL Hct 19.1 L* 25.5 L (42.0-52.0) % Plt Count 271 D (150-375) k/mm3 Lymph # (Auto) 1.20 (0.9-3.2) K/mm3 [place] # (Auto) 0.5 (0.1-0.6) K/mm3 Eos # (Auto) 0.1 (0-0.3) K/mm3 Baso # (Auto) 0.0 (0.0-0.1) K/mm3 Comprehensive Metabolic Panel 07/16/24 Range/Units 00:12 Sodium 137 (137-145) mmol/L Potassium 4.5 (3.4-5.0) mmol/L Chloride 96 L (98-107) mmol/L Carbon Dioxide 33 H (22-30) mmol/L BUN 46 H (9-20) mg/dL Creatinine 3.20 H (0.7-1.3) mg/dL Glucose 94 (65-110) mg/dL Calcium 7.9 L (8.4-10.2) mg/dL AST 37 (17-59) U/L ALT 24 (6-50) U/L Alkaline Phosphatase 173 H (38-126) U/L Total Protein 8.0 (6.3-8.2) g/dL Albumin 3.6 (3.5-5.1) g/dL Intake and Output 07/15/24 07/16/24 07/16/24 23:59 07:59 15:59 Intake Total 600 550 Balance 600 550 Intake: IV 250 Sodium Chloride 0.9% IV 250 ml 250 @ 30 mls/hr IV CONT .[id number] STA Rx#:[id number] Intake (Blood Product) Amt 350 Leukocyte Reduced Rbc Unit 350 [id number] Oral 550 Other: # Unmeasured Voids 1 Number of Bowel Movements Today 1 Patient Weight 07/16/24 23:59 Weight 98.1 kg
[2024-07-16 10:00] LABS: MRSA (PCR) NOT DETECTED (NOT DETECTE)
[2024-07-16 10:33] LABS: Iron 48 ug/dL (49-181)
--- NOTE | 2024-07-16 10:36 | P.CONGI_ITS ---
Assessment and Plan Assessment and plan (1) XOCHITL (acute kidney injury): Code(s): N17.9 - Acute kidney failure, unspecified Status: Acute (2) Anemia: Code(s): D64.9 - Anemia, unspecified Status: Acute Assessment and Plan: Patient has severe anemia which is probably multifactorial, and maybe there is a hemolytic component due to severe valvular heart disease. His hemoglobin went up appropriately after 1 unit of packed red blood cells, and he has remained hemodynamically stable. There is no objective evidence of melena on rectal exam or direct stool visualization. However, chronic intermittent GI bleeding contributing to the anemia cannot be completely ruled out, but at least at this very moment he is not acutely bleeding. Nevertheless, an EGD is indicated to rule out active peptic ulcer disease, especially because he needs chronic anticoagulation, and will be performed tomorrow after 1 pm GI Consult Note Consult date/time: 07/16/24 10:36 Reason for consult: Possible GI bleeding. HPI: Chau Cho is a 59 year old male With a recent history of aortic and mitral valve surgery at [facility]. He was complaining of pressure- like chest pain shortness her breath and was found to be profoundly anemic. There was a question of dark stools, which is the reason for the consult. He does not have a history of peptic ulcer disease, but has been on aspirin and currently on Coumadin. He denies alcohol use or NSAIDs. He never had an EGD. Review of Systems Review of Systems: All systems reviewed & are unremarkable except as noted in HPI and below PMFSH Past Medical History Medical History Chronic anemia Chronic kidney disease Cirrhosis of liver With portal venous hypertension noted on CT of the abdomen pelvis April 2024 Complete heart block Status post pacemaker implantation. Diastolic dysfunction Endocarditis April 2024 History of blood transfusion History of pneumothorax Hypertension Restless legs syndrome Scrotum swelling Due to seroma Tobacco dependence Umbilical hernia Vitamin D deficiency Surgical History Surgical History Aortic valve replaced History of inguinal hernia repair (2004) History of permanent cardiac pacemaker placement For complete heart block. History of renal stent Pacemaker Family History Family History Other Cerebrovascular accident Heart disease Hypertension Social History Social History Social History: Patient lives with his father who was in his 80s. Patient reports that he smokes cigars on occasion. He denies any history of alcohol or illicit substance use. He is on disability after he fractured his back in 2004. 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 He and his were for 35 years prior to her . They had 5 biologic children and 10 adopted children. Surrogate medical decision maker: Flaco Cho (father) [phone]. Code status: Full code. Smoking packs per day: 0.5 Smoking cigarettes per day: 10.0 Years smoked: 20 Smoking pack-years: 10.00 Smoking status: Current some day smoker Tobacco type: cigars Additional smoking assessment comments: occasional cigar smoker Alcohol intake: never Substance use: former Substance use type: marijuana Other substance usage details: Cannabis Gummy Unknown Dose but uses for pa in/discomfort Do You Feel Safe in your Home?: Yes Lack of Transportation: No Lack of Food: Never True Current Housing: I Have Housing Concerned About Future Housing: Decline to Answer Difficulty Paying Gas/Electric Bills: Decline to Answer Difficulty Paying for Meds: Decline to Answer Currently Unemployed: Decline to Answer Education: Decline to Answer Difficulty w/ Childcare or Family Care: Decline to Answer Living arrangements: with family Additional living arrangements comments: . Additional occupation/education comments: Disabled. Spiritual care concerns: No Meds Home Medications and Allergies Home Medications Medication Instructions Recorded Confirmed Type cholecalciferol (vitamin D3) 50 100 mcg PO DAILY #60 caps 04/07/23 07/16/24 Rx mcg (2,000 unit) capsule sodium zirconium cyclosilicate 10 10 g PO DAILY PRN hyperkalemia 10/13/23 07/16/24 History gram oral powder packet (Lokelma) benzonatate 100 mg capsule 100 mg PO TID PRN Cough 07/16/24 07/16/24 History carvedilol 3.125 mg tablet 3.125 mg PO QPM 07/16/24 07/16/24 History methocarbamol 500 mg tablet 500 mg PO TID PRN muscle cramps 07/16/24 07/16/24 History warfarin 3 mg tablet See Rx Instructions .Route .COMPLEX 07/16/24 07/16/24 History warfarin 4 mg tablet See Rx Instructions .Route .COMPLEX 07/16/24 07/16/24 History Allergies Allergy/AdvReac Type Severity Reaction Status Date / Time hornet venom Allergy Anaphylaxis Verified 07/16/24 05:41 morphine AdvReac Mild Agitated Verified 07/16/24 00:11 Vital Signs Vital Signs - 24 hr 07/16/24 00:00 07/16/24 00:09 07/16/24 00:09 Temperature 99.0 F Pulse Rate 91 90 Respiratory Rate 17 Blood Pressure 117/44 L Pulse Oximetry 100 100 Oxygen Delivery Room Air Room Air Oxygen Flow Rate Fraction of Inspired Oxygen 07/16/24 00:09 07/16/24 01:25 07/16/24 02:50 Temperature 99.0 F 97.9 F Pulse Rate 90 102 H 97 Respiratory Rate 20 20 20 Blood Pressure 112/41 L 114/73 123/49 L Pulse Oximetry 100 97 95 Oxygen Delivery Oxygen Flow Rate Fraction of Inspired Oxygen 07/16/24 03:07 07/16/24 03:16 07/16/24 04:07 Temperature 98.0 F 97.8 F Pulse Rate 89 90 90 Respiratory Rate 22 H 22 H 23 H Blood Pressure 119/59 L 119/59 L 139/58 L Pulse Oximetry 94 94 97 Oxygen Delivery Oxygen Flow Rate Fraction of Inspired Oxygen 07/16/24 04:15 07/16/24 04:15 07/16/24 05:41 Temperature 97.8 F 97.8 F 98.1 F Pulse Rate 90 90 90 Respiratory Rate 23 H 23 H 20 Blood Pressure 139/58 L 139/58 L 134/57 L Pulse Oximetry 97 97 97 Oxygen Delivery Oxygen Flow Rate Fraction of Inspired Oxygen 07/16/24 06:21 07/16/24 07:21 07/16/24 06:00 Temperature 98.3 F Pulse Rate 90 89 94 Respiratory Rate 14 Blood Pressure 117/58 L 113/45 L Pulse Oximetry 95 96 Oxygen Delivery Oxygen Flow Rate Fraction of Inspired Oxygen 07/16/24 05:11 07/16/24 06:20 07/16/24 08:17 Temperature Pulse Rate 93 Respiratory Rate Blood Pressure Pulse Oximetry 95 96 Oxygen Delivery Nasal Cannula Nasal Cannula Oxygen Flow Rate 1 2 Fraction of Inspired Oxygen 28 Exam Narrative: Rectal exam performed at bedside, obtaining scant amount of brown stools. In addition, patient stools in the toilet were seen, no melena or hematochezia. Const: General: comfortable Results Labs 07/16/24 05:27 07/16/24 00:12 Labs: Short CBC 07/16/24 07/16/24 Range/Units 00:12 05:27 WBC 9.2 (4.5-10.0) K/mm3 Hgb 5.7 L* 7.6 L (14.0-18.0) g/dL Hct 19.1 L* 25.5 L (42.0-52.0) % Plt Count 271 D (150-375) k/mm3 BMP 07/16/24 00:12 Sodium 137 Potassium 4.5 Chloride 96 L Carbon Dioxide 33 H BUN 46 H Creatinine 3.20 H Glucose 94 Calcium 7.9 L Cardiac Enzymes 07/16/24 07/16/24 07/16/24 Range/Units 00:12 02:24 05:27 Troponin I 0.137 H* 0.126 H* 0.132 H* (0.000-0.034) ng/mL Liver Function 07/16/24 Range/Units 00:12 Total Bilirubin 1.0 (0.2-1.3) mg/dL AST 37 (17-59) U/L ALT 24 (6-50) U/L Alkaline Phosphatase 173 H (38-126) U/L Albumin 3.6 (3.5-5.1) g/dL
[2024-07-16 10:43] LABS: Percent Iron Saturation 17 % (20-50)
[2024-07-16 11:02] LABS: Hepatitis B Surface Antigen Negative (Negative)
[2024-07-16 11:34] LABS: Hematocrit 23.7 % (42.0-52.0); Hemoglobin 7.1 g/dL (14.0-18.0)
[2024-07-16] MEDS: methocarbamoL 500 MG TABLET PO ×2 (13:02→17:01)
[2024-07-16] MEDS: BENZONATATE 100 MG CAPSULE PO ×2 (13:04→17:01)
[2024-07-16] MEDS: SODIUM ZIRCONIUM CYCLOSILICATE 10 GM POWD.PACK PO (13:11)
[2024-07-16 13:50] LABS: Potassium 4.2 mmol/L (3.4-5.0)
[2024-07-16] MEDS: carvediloL 3.125 MG TABLET PO (17:01)
--- NOTE | 2024-07-16 18:21 | ECG_ITS ---
Test Date: 2024-07-16 18:31:47 Measurements Intervals [place] Rate: 95 P: 27 AK: 168 QRS: -25 QRSD: 146 T: 148 QT: 390 QTc: 492 Interpretive Statements ATRIAL SENSE- ELECTRONIC VENTRICULAR PACEMAKER BASELINE ARTIFACT- I, II, III, AVR, AVL, AVF, V1, V4-6 NO FURTHER INTERPRETATION IS POSSIBLE ATYPICAL ECG Compared to ECG 07/16/2024 02:58:24 SUPRAVENTRICULAR BIGEMINY NO LONGER PRESENT Electronically Signed On 07-17-2024 06:30:53 STRUCTURAL DESIGN ENGINEER by Thony Rincon D.O.
[2024-07-16 20:24] LABS: Hematocrit 23.7 % (42.0-52.0); Hemoglobin 7.5 g/dL (14.0-18.0)
[2024-07-17] VITALS (41 sets, daily range): BP systolic 90–138; BP diastolic 41–96; PULSE 67–99; RESP 16–28; TEMP 36.6–37.2; O2SAT 88–100
[2024-07-17 05:16] LABS: Basophils Percent Auto 0.4 % (0.2-1.2); Eosinophils Absolute Auto 0.1 K/mm3 (0-0.3); Eosinophils Percent Auto 0.7 % (0-4.4); Immature Granulocyte Absolute 0.05 K/mm3 (0.00-0.031); Immature Granulocyte Percent A 0.6 % (0-0.5); Lymphocytes Absolute Auto 1.11 K/mm3 (0.9-3.2); Lymphocytes Percent Auto 13.7 % (18.3-44.2); Mean Corpuscular HGB Conc 31.1 g/dl (32-36); Mean Corpuscular Hemoglobin 29.4 pg (26-34); Mean Corpuscular Volume 94.6 fl (80-100); Mean Platelet Volume 9.9 fl (7.4-10.4); Monocytes Absolute Auto 0.4 K/mm3 (0.1-0.6); Monocytes Percent Auto 5.3 % (2.6-8.5); Neutrophils Absolute Auto 6.4 K/mm3 (1.3-6.7); Neutrophils Percent Auto 79.3 % (45.5-73.1); Platelet Count Result 262 k/mm3 (150-375); Red Blood Count 2.21 M/mm3 (4.6-6.20); Red Cell Distribution Width 17.6 % (11.5-14.5); White Blood Count 8.1 K/mm3 (4.5-10.0)
[2024-07-17 05:17] LABS: Hematocrit 21.4 % (42.0-52.0)
[2024-07-17 05:21] LABS: Hematocrit 20.9 % (42.0-52.0); Hemoglobin 6.5 g/dL (14.0-18.0)
[2024-07-17 05:30] LABS: Hemoglobin 6.5 g/dL (14.0-18.0)
[2024-07-17 05:32] LABS: INR 2.4; Prothrombin Time 26.5 Seconds (11.1-14.7)
[2024-07-17 05:38] LABS: Alanine Aminotransferase 18 U/L (6-50); Albumin Level 3.2 g/dL (3.5-5.1); Alkaline Phosphatase 158 U/L (38-126); Anion Gap 9 mmol/L (4-12); Aspartate Amino Transferase 26 U/L (17-59); Bilirubin,Total 1.2 mg/dL (0.2-1.3); Blood Urea Nitrogen 53 mg/dL (9-20); Calcium 7.7 mg/dL (8.4-10.2); Carbon Dioxide 29 mmol/L (22-30); Chloride 97 mmol/L (98-107); Estimated CRCL calculation 20 ml/min; Estimated Glomerular Filt Rate 14; Glucose 104 mg/dL (65-110); Magnesium 2.1 mg/dL (1.6-2.3); Potassium 4.1 mmol/L (3.4-5.0); Sodium 135 mmol/L (137-145)
[2024-07-17] MEDS: TUBING, BLOOD PLUM PUMP TUBING 1 EACH XX (06:15)
[2024-07-17] MEDS: SODIUM CHLORIDE 0.9% IV 250 ML 30 ML IV CONT (07:15)
--- NOTE | 2024-07-17 08:10 | PC.NURSE ---
pt taken up to dialysis, blood transfusion still running at 175/hr
[2024-07-17] MEDS: SODIUM CHLORIDE 0.9% IV 1,000 ML 999 ML IV CONT (08:30)
[2024-07-17] MEDS: HEPARIN SODIUM 1,000 UNITS/ML VIAL 5000 UNITS (09:00)
--- NOTE | 2024-07-17 09:00 | PC.NURSE ---
blood product finished in dialysis, dialysis nurse Minerva will complete TAR
[2024-07-17 09:23] LABS: Basophils Percent Auto 0.4 % (0.2-1.2); Eosinophils Absolute Auto 0.1 K/mm3 (0-0.3); Eosinophils Percent Auto 0.7 % (0-4.4); Hematocrit 25.5 % (42.0-52.0); Hemoglobin 7.9 g/dL (14.0-18.0); Immature Granulocyte Absolute 0.04 K/mm3 (0.00-0.031); Immature Granulocyte Percent A 0.4 % (0-0.5); Lymphocytes Absolute Auto 0.75 K/mm3 (0.9-3.2); Lymphocytes Percent Auto 8.4 % (18.3-44.2); Mean Corpuscular Hemoglobin 29.4 pg (26-34); Mean Corpuscular Volume 94.8 fl (80-100); Monocytes Absolute Auto 0.5 K/mm3 (0.1-0.6); Monocytes Percent Auto 5.8 % (2.6-8.5); Neutrophils Absolute Auto 7.6 K/mm3 (1.3-6.7); Neutrophils Percent Auto 84.3 % (45.5-73.1); Platelet Count Result 226 k/mm3 (150-375); Red Blood Count 2.69 M/mm3 (4.6-6.20); Red Cell Distribution Width 17.3 % (11.5-14.5)
[2024-07-17 09:35] LABS: INR 2.3; Prothrombin Time 25.6 Seconds (11.1-14.7)
[2024-07-17 09:36] LABS: Partial Thromboplastin Time 62.8 Seconds (22.3-36.8)
--- NOTE | 2024-07-17 09:54 | P.PNCA_ITS ---
Progress Note: A&P Assessment and Plan (1) Heart valve replaced: Code(s): Z95.2 - Presence of prosthetic heart valve Status: Acute Plan 59-year-old man with endocarditis and severe sp 25mm On-X AVR with root repair using bovine percardial patch, 31mm [place] MVR with annular repair, and TVr with 28mm annuloplasty ring presents with melena associated with shortness of breath and chest pain Chest pain -demand related secondary to acute anemia which now has resolved with blood transfusion Shortness of breath -demand related secondary to acute anemia which now has resolved with blood transfusion -will need aggressive ultrafiltration with dialysis given pleural effusions Mechanical valves; review of outside records show the following: -25mm On-X AVR with root repair using bovine percardial patch -31mm [place] MVR with annular repair -TVr with 28mm annuloplasty ring -goal INR should be 3-3.5 given fresh mechanical valves -INR currently at 2.4 ; Start heparin infusion Hypertension -goal systolic blood pressure less than 140 in setting of acute bleed -can continue to hold antihypertensives at this time Acute on chronic anemia -secondary to bleed -stabilized with transfusion for now -plan for endoscopy - Has baseline HB 7.1-7.7 (prior to this admission). HB 7.7 at discharge post valve replacement Subjective Date/time seen: 07/17/24 09:54 Interval history: Is scheduled for EGD today after HD No chest pain or shortness of breath. History and chart reviewed. HB 6.8 Review of Systems Constitutional: Constitutional: Reports as per HPI Cardiovascular: Cardiovascular: Reports as per HPI Respiratory: Respiratory: Reports as per HPI Exam Const: General: comfortable HENMT: Mouth: Yes moist mucous membranes Eyes: EOM: EOMs intact bilaterally Neck: Neck: no JVD Resp: Effort & Inspection: normal respiratory effort Auscultation: diminished lung sounds Cardio: Rate: regular rate Rhythm: regular rhythm Other: Mechanical S1 and mechanical S2 GI: Other: Pacemaker pocket Neuro: Speech: normal speech Objective Data Vital Signs Vital Signs: Vital Signs - 24 hr 07/16/24 10:00 07/16/24 12:00 07/16/24 12:00 Temperature Pulse Rate 105 H 89 Respiratory Rate Blood Pressure Pulse Oximetry Oxygen Delivery Room Air 07/16/24 12:00 07/16/24 14:00 07/16/24 16:00 Temperature 37.2 C Pulse Rate 90 90 94 Respiratory Rate 14 28 H Blood Pressure 111/58 L 134/67 Pulse Oximetry 95 95 Oxygen Delivery 07/16/24 16:00 07/16/24 16:00 07/16/24 17:01 Temperature Pulse Rate 98 105 H Respiratory Rate Blood Pressure Pulse Oximetry Oxygen Delivery Room Air 07/16/24 18:00 07/16/24 21:17 07/16/24 20:00 Temperature 37.4 C Pulse Rate 105 H 103 H 100 Respiratory Rate 28 H Blood Pressure 138/69 Pulse Oximetry 94 Oxygen Delivery 07/16/24 22:00 07/16/24 20:40 07/17/24 00:56 Temperature Pulse Rate 93 99 Respiratory Rate 28 H Blood Pressure 134/57 L Pulse Oximetry 95 Oxygen Delivery Room Air 07/17/24 00:00 07/17/24 00:00 07/17/24 02:00 Temperature Pulse Rate 95 89 Respiratory Rate Blood Pressure Pulse Oximetry Oxygen Delivery Room Air 07/17/24 04:27 07/17/24 04:00 07/17/24 04:00 Temperature 36.6 C Pulse Rate 89 89 Respiratory Rate 20 Blood Pressure 106/42 L Pulse Oximetry 97 Oxygen Delivery Room Air 07/17/24 06:12 07/17/24 06:30 07/17/24 06:00 Temperature 37.1 C 37.0 C Pulse Rate 89 89 90 Respiratory Rate 20 18 Blood Pressure 100/54 L 103/44 L Pulse Oximetry 97 97 Oxygen Delivery 07/17/24 07:30 07/17/24 07:59 07/17/24 08:00 Temperature 36.9 C 37.1 C Pulse Rate 89 67 90 Respiratory Rate 18 18 Blood Pressure 109/41 L 114/62 Pulse Oximetry 92 92 Oxygen Delivery 07/17/24 08:00 Temperature Pulse Rate Respiratory Rate Blood Pressure Pulse Oximetry Oxygen Delivery Room Air Intake/Output Intake/Output: Intake & Output 07/14/24 07/15/24 07/16/24 07/17/24 23:59 23:59 23:59 23:59 Intake Total 2490 0 Balance 2490 0 Meds/Results Medications: Active Medications Generic Name Dose Route Start Last Admin Trade Name Freq PRN Reason Stop Dose Admin Benzonatate 100 mg 07/16/24 12:58 07/16/24 17:01 Benzonatate 100 Mg Capsule PO 100 mg TID PRN Administration Cough Carvedilol 3.125 mg 07/16/24 18:00 07/16/24 17:01 Carvedilol 3.125 Mg Tablet PO 3.125 mg QPM ALLY Administration Epoetin Parish-epbx 10,000 units 07/17/24 09:00 Epoetin [place]-Epbx 10,000 Units/Ml Vial IV PUSH MOWEFR@09 [facility] Heparin Sodium (Porcine) 6,500 units 07/17/24 08:49 Heparin Sodium 5,000 Units/Ml Vial IV PUSH PRN PRN aPTT less than 55 seconds Heparin Sodium (Porcine) 3,500 units 07/17/24 08:49 Heparin Sodium 5,000 Units/Ml Vial IV PUSH PRN PRN aPTT 55 - 70 seconds Sodium Chloride 250 mls @ 30 mls/hr 07/17/24 08:33 Normal Saline Iv IV CONT 07/17/24 16:52 .[id number] STA Heparin Sodium/Dextrose 25,000 units in 250 mls @ 15 mls/hr 07/17/24 09:15 Heparin Sodium/D5w 100 Units/Ml IV CONT .[id number] [facility] Protocol 1,500 UNITS/HR Methocarbamol 500 mg 07/16/24 08:06 07/16/24 17:01 Methocarbamol 500 Mg Tablet PO 500 mg TID PRN Administration muscle cramps Ondansetron HCl 4 mg 07/16/24 20:51 Ondansetron Inj 4 Mg/2 Ml Vial IV PUSH Q6H PRN Nausea And Vomiting Pantoprazole Sodium 40 mg 07/16/24 09:00 07/16/24 20:56 Pantoprazole Sodium Iv 40 Mg Vial IV PUSH 40 mg Q12HR ALLY Administration Sodium Zirconium Cyclosilicate 10 gm 07/16/24 13:07 07/16/24 13:11 Sodium Zirconium Cyclosilicate 10 Gm Powd.Pack PO 10 gm DAILY PRN Administration hyperkalemia Vitamin D 4,000 units 07/16/24 09:00 07/16/24 09:47 Cholecalciferol 1,000 Units Tablet PO 4,000 units DAILY ALLY Administration Radiology Results: ITS Impressions Chest X-Ray 07/16/24 08:36 Impression: Moderate bibasilar pulmonary edema/atelectasis with moderate bilateral pleural effusions. Support line, as above. Cardiomegaly, status post mitral valve replacement. Abdomen X-Ray 07/16/24 08:54 Impression: Pacemaker. Moderate bilateral pleural effusions. Nonspecific bowel gas pattern. Labs Labs: Laboratory Results - last 24 hr 07/16/24 07/16/24 07/16/24 00:13 05:20 06:59 WBC RBC Hgb Hct MCV MCH MCHC RDW Plt Count MPV Immature Gran % (Auto) Neut % (Auto) Lymph % (Auto) [place] % (Auto) Eos % (Auto) Baso % (Auto) Lymph # (Auto) [place] # (Auto) Eos # (Auto) Baso # (Auto) Abs Immat Gran (auto) Absolute Neuts (auto) Absolute Nucleated RBC Nucleated RBC % PT INR APTT Sodium Potassium Chloride Carbon Dioxide Anion Gap BUN Creatinine Estim Creat Clear Calc Estimated GFR Glucose Calcium Magnesium Iron 48 L TIBC 281 % Saturation 17 L Total Bilirubin AST ALT Alkaline Phosphatase Total Protein Albumin Nasal MRSA (PCR) Not detected Hep Bs Antigen Negative Blood Type B Positive Antibody Screen Negative Crossmatch See Detail 07/16/24 07/16/24 07/16/24 11:26 13:32 20:17 WBC RBC Hgb 7.1 L 7.5 L Hct 23.7 L 23.7 L MCV MCH MCHC RDW Plt Count MPV Immature Gran % (Auto) Neut % (Auto) Lymph % (Auto) [place] % (Auto) Eos % (Auto) Baso % (Auto) Lymph # (Auto) [place] # (Auto) Eos # (Auto) Baso # (Auto) Abs Immat Gran (auto) Absolute Neuts (auto) Absolute Nucleated RBC Nucleated RBC % PT INR APTT Sodium Potassium 4.2 Chloride Carbon Dioxide Anion Gap BUN Creatinine Estim Creat Clear Calc Estimated GFR Glucose Calcium Magnesium Iron TIBC % Saturation Total Bilirubin AST ALT Alkaline Phosphatase Total Protein Albumin Nasal MRSA (PCR) Hep Bs Antigen Blood Type Antibody Screen Crossmatch 07/17/24 07/17/24 07/17/24 04:46 04:46 04:46 WBC 8.1 RBC 2.21 L Hgb 6.5 L* 6.5 L* Hct 21.4 L 20.9 L* MCV 94.6 MCH 29.4 MCHC 31.1 L RDW 17.6 H Plt Count 262 MPV 9.9 Immature Gran % (Auto) 0.6 H Neut % (Auto) 79.3 H Lymph % (Auto) 13.7 L [place] % (Auto) 5.3 Eos % (Auto) 0.7 Baso % (Auto) 0.4 Lymph # (Auto) 1.11 [place] # (Auto) 0.4 Eos # (Auto) 0.1 Baso # (Auto) 0.0 Abs Immat Gran (auto) 0.05 H Absolute Neuts (auto) 6.4 Absolute Nucleated RBC 0.000 Nucleated RBC % 0.0 PT INR APTT Sodium 135 L Potassium 4.1 Chloride 97 L Carbon Dioxide 29 Anion Gap 9 BUN 53 H Creatinine 4.40 H Estim Creat Clear Calc 20 Estimated GFR 14 L Glucose 104 Calcium 7.7 L Magnesium 2.1 Iron TIBC % Saturation Total Bilirubin 1.2 AST 26 ALT 18 Alkaline Phosphatase 158 H Total Protein 7.0 Albumin 3.2 L Nasal MRSA (PCR) Hep Bs Antigen Blood Type Antibody Screen Crossmatch 07/17/24 07/17/24 07/17/24 04:47 09:18 09:18 WBC 9.0 RBC 2.69 L Hgb 7.9 L Cancelled Hct 25.5 L MCV MCH MCHC RDW Plt Count MPV Immature Gran % (Auto) Neut % (Auto) Lymph % (Auto) [place] % (Auto) Eos % (Auto) Baso % (Auto) Lymph # (Auto) [place] # (Auto) Eos # (Auto) Baso # (Auto) Abs Immat Gran (auto) Absolute Neuts (auto) Absolute Nucleated RBC Nucleated RBC % PT 26.5 H D INR 2.4 APTT Sodium Potassium Chloride Carbon Dioxide Anion Gap BUN Creatinine Estim Creat Clear Calc Estimated GFR Glucose Calcium Magnesium Iron TIBC % Saturation Total Bilirubin AST ALT Alkaline Phosphatase Total Protein Albumin Nasal MRSA (PCR) Hep Bs Antigen Blood Type Antibody Screen Crossmatch 07/17/24 09:18 WBC RBC Hgb Hct Cancelled MCV 94.8 MCH 29.4 MCHC 31.0 L RDW 17.3 H Plt Count 226 MPV 9.0 Immature Gran % (Auto) 0.4 Neut % (Auto) 84.3 H Lymph % (Auto) 8.4 L [place] % (Auto) 5.8 Eos % (Auto) 0.7 Baso % (Auto) 0.4 Lymph # (Auto) 0.75 L [place] # (Auto) 0.5 Eos # (Auto) 0.1 Baso # (Auto) 0.0 Abs Immat Gran (auto) 0.04 H Absolute Neuts (auto) 7.6 H Absolute Nucleated RBC 0.000 Nucleated RBC % 0.0 PT 25.6 H INR 2.3 APTT 62.8 H Sodium Potassium Chloride Carbon Dioxide Anion Gap BUN Creatinine Estim Creat Clear Calc Estimated GFR Glucose Calcium Magnesium Iron TIBC % Saturation Total Bilirubin AST ALT Alkaline Phosphatase Total Protein Albumin Nasal MRSA (PCR) Hep Bs Antigen Blood Type Antibody Screen Crossmatch
--- NOTE | 2024-07-17 10:31 | P.PNNP_ITS ---
Progress Note: A&P Assessment and Plan (1) Acute renal failure on dialysis: Code(s): N17.9 - Acute kidney failure, unspecified; Z99.2 - Dependence on renal dialysis Status: Acute Assessment and Plan: * as noted by last hospitalization here at [facility] * no evidence of renal recovery during hospitalization at [place] (May 2024) * etiology felt to be secondary to multifactorial ATN: * hypotension/hemodynamic instability * sepsis/infection (+ bacteremia/endocarditis) * prerenal factors * previous cardiac issues/NSTEMI * appears to be dialysis dependent since last April 2024 * follow trend of repeat labs and UOP to assess for potential renal recovery * however, since he had advanced CKD at baseline (and has been on dialysis previously), it is possible he maybe dialysis dependent (2) Chronic kidney disease, stage IV (severe): Code(s): N18.4 - Chronic kidney disease, stage 4 (severe) Status: Chronic Assessment and Plan: * baseline creatinine has been running ~ 3.3 - 3.8mg/dl prior to April 2024 hospitalization * felt to be secondary hypertension, vascular disease, previous obesity, COURTNEY, and left overs from his previous bouts of XOCHITL/ARF * still has had issues with metabolic acidosis and hyperkalemia at baseline requiring ongoing medical management (3) Anemia: Code(s): D64.9 - Anemia, unspecified Status: Acute Assessment and Plan: * due to XOCHITL, CKD, and possible GI loss * PRBC transfusion per protocol * on Retacrit with dialysis treatment * Gastroenterology following * follow trend of H/H (4) Congestive heart failure: Code(s): I50.9 - Heart failure, unspecified Status: Acute Assessment and Plan: * as evidenced by admission CXR * likely worsened by severe anemia on admission * fluid removal/ultrafiltration with dialysis as tolerated * follow respiratory status (5) Heart valve replaced: Code(s): Z95.2 - Presence of prosthetic heart valve Status: Acute Assessment and Plan: * noted known 3 valve replacements * careful anticoagulation in the context of #3 * Cardiology following Will continue to follow. Subjective Date/time seen: 07/17/24 10:10 Interval history: Follow-up for acute kidney injury/acute renal failure on chronic kidney disease requiring CONTINUITY PERSON/dialysis. Chart reviewed -- assuming care from Dr. Delgado; tolerating dialysis treatment at the time of my visit (seen on HD at 10:00AM); PRBC transfusion earlier today as well due to low H/H by AM labs; resting comfortably at the time of my visit; noted plans for EGD later this afternoon per Gastroenterology. Objective Data Vital Signs Vital Signs: Vital Signs Temp Pulse Resp BP Pulse Ox O2 Del Method FiO2 07/17/24 10:00 89 07/17/24 08:09 98.4 F 89 17 118/75 98 07/17/24 08:09 98 07/17/24 08:00 Room Air 07/17/24 08:00 90 07/17/24 07:59 98.8 F 67 18 114/62 92 07/17/24 07:30 98.5 F 89 18 109/41 L 92 07/17/24 06:00 90 07/17/24 06:30 98.6 F 89 18 103/44 L 97 07/17/24 06:12 98.8 F 89 20 100/54 L 97 07/17/24 04:00 89 07/17/24 04:00 Room Air 07/17/24 04:27 97.8 F 89 20 106/42 L 97 07/17/24 02:00 89 07/17/24 00:00 95 07/17/24 00:00 Room Air 07/17/24 00:56 99 28 H 134/57 L 95 07/16/24 20:40 Room Air 07/16/24 22:00 93 07/16/24 20:00 100 07/16/24 21:17 99.4 F 103 H 28 H 138/69 94 07/16/24 18:00 105 H 07/16/24 17:01 105 H 07/16/24 16:00 98 07/16/24 16:00 Room Air 07/16/24 16:00 99 F 94 28 H 134/67 95 07/16/24 14:00 90 Intake/Output Intake/Output: Intake & Output 07/14/24 07/15/24 07/16/24 07/17/24 23:59 23:59 23:59 23:59 Intake Total 2490 350 Balance 2490 350 Meds/Results Medications: Active Medications Generic Name Dose Route Start Last Admin Trade Name Freq PRN Reason Stop Dose Admin Acetaminophen 650 mg 07/17/24 10:05 07/17/24 11:00 Acetaminophen 325 Mg Tablet PO 650 mg Q4H PRN Administration Mild Pain (1-3) or Fever Benzonatate 100 mg 07/16/24 12:58 07/16/24 17:01 Benzonatate 100 Mg Capsule PO 100 mg TID PRN Administration Cough Carvedilol 3.125 mg 07/16/24 18:00 07/16/24 17:01 Carvedilol 3.125 Mg Tablet PO 3.125 mg QPM ALLY Administration Epoetin Parish-epbx 10,000 units 07/17/24 09:00 07/17/24 12:28 Epoetin Parish-Epbx 10,000 Units/Ml Vial IV PUSH Not Given MOWEFR@09 [facility] Heparin Sodium (Porcine) 6,500 units 07/17/24 08:49 Heparin Sodium 5,000 Units/Ml Vial IV PUSH PRN PRN aPTT less than 55 seconds Heparin Sodium (Porcine) 3,500 units 07/17/24 08:49 Heparin Sodium 5,000 Units/Ml Vial IV PUSH PRN PRN aPTT 55 - 70 seconds Sodium Chloride 250 mls @ 30 mls/hr 07/17/24 08:33 07/17/24 12:27 Normal Saline Iv IV CONT 07/17/24 16:52 Not Given .Q8H20M [facility] [email or web address]] Heparin Sodium/Dextrose 25,000 units in 250 mls @ 15 mls/hr 07/17/24 09:15 Heparin Sodium/D5w 100 Units/Ml IV CONT .[id number] [facility] Protocol 1,500 UNITS/HR Lactated Ringer's 1,000 mls @ 150 mls/hr 07/17/24 12:40 Lr - Lactated Ringers Iv IV CONT .Q6H40M [facility] Methocarbamol 500 mg 07/16/24 08:06 07/16/24 17:01 Methocarbamol 500 Mg Tablet PO 500 mg TID PRN Administration muscle cramps Ondansetron HCl 4 mg 07/16/24 20:51 Ondansetron Inj 4 Mg/2 Ml Vial IV PUSH Q6H PRN Nausea And Vomiting Pantoprazole Sodium 40 mg 07/16/24 09:00 07/16/24 20:56 Pantoprazole Sodium Iv 40 Mg Vial IV PUSH 40 mg Q12HR [facility] Administration Sodium Zirconium Cyclosilicate 10 gm 07/16/24 13:07 07/16/24 13:11 Sodium Zirconium Cyclosilicate 10 Gm Powd.Pack PO 10 gm DAILY PRN Administration hyperkalemia Vitamin D 4,000 units 07/16/24 09:00 07/16/24 09:47 Cholecalciferol 1,000 Units Tablet PO 4,000 units DAILY ALLY Administration Radiology Results: ITS Impressions Chest X-Ray 07/16/24 08:36 Impression: Moderate bibasilar pulmonary edema/atelectasis with moderate bilateral pleural effusions. Support line, as above. Cardiomegaly, status post mitral valve replacement. Abdomen X-Ray 07/16/24 08:54 Impression: Pacemaker. Moderate bilateral pleural effusions. Nonspecific bowel gas pattern. Labs Labs: Laboratory Tests 07/17/24 09:18 07/17/24 04:46 Hgb 6.5 L* Hct 20.9 L* Calcium 7.7 L Magnesium 2.1 Total Bilirubin 1.2 AST 26 ALT 18 Alkaline Phosphatase 158 H Total Protein 7.0 Albumin 3.2 L Microbiology 07/16/24 05:29 Blood Blood Culture - Preliminary 07/16/24 05:32 Blood Blood Culture - Preliminary
[2024-07-17] MEDS: ACETAMINOPHEN 325 MG TABLET 650 MG PO ×2 (11:00→16:40)
--- NOTE | 2024-07-17 11:25 | PC.NURSE ---
dr nowak will come and speak with pt after egd is done regarding his refusal of the heparin drip, dr zapatas drip started after egd completed
--- NOTE | 2024-07-17 12:05 | PC.NURSE ---
pt brought back from dialysis, sitting up at bedside, 2L reported removed by dialysis nurse Minerva
--- NOTE | 2024-07-17 12:21 | PC.NURSE ---
pt taken down for egd by pre-op nurses, pt c/o shoulder pain and requests pain meds on return
--- NOTE | 2024-07-17 12:31 | SUR.PREOP ---
Per Dr Henley, no antibiotics necessary prior to EGD.
[2024-07-17] MEDS: SODIUM CHLORIDE 0.9% IV 500 ML 10 ML IV CONT (12:58)
--- NOTE | 2024-07-17 13:21 | P.PNAN_ITS ---
Anes - Initial Pre Proc Eval Procedure: Operation Date: 07/17/24 14:00 Proposed Procedures p Esophagogastroduodenoscopy - Mauro Henley MD Date/Time: 07/17/24 13:21 Surgeon: Olivia Huston DO Pre Op Diagnosis: Acute anemia, ESRD on HD elevated troponin Patient Data Age: 59 Gender: M Height: 1.78 m Weight: 93.7 kg Last Vital Signs Temp 36.6 C 07/17/24 12:51 Pulse 88 07/17/24 12:51 Resp 28 H 07/17/24 12:51 BP 104/53 L 07/17/24 12:51 Pulse Ox 88 L 07/17/24 12:51 O2 Del Method Nasal Cannula 07/17/24 12:52 O2 Flow Rate 3 07/17/24 12:52 FiO2 98 07/17/24 08:09 Allergies Allergy/AdvReac Type Severity Reaction Status Date / Time hornet venom Allergy Anaphylaxis Verified 07/16/24 05:41 morphine AdvReac Mild Agitated Verified 07/16/24 00:11 Home Medications Medication Instructions Recorded Confirmed Type cholecalciferol (vitamin D3) 50 100 mcg PO DAILY #60 caps 04/07/23 07/16/24 Rx mcg (2,000 unit) capsule sodium zirconium cyclosilicate 10 10 g PO DAILY PRN hyperkalemia 10/13/23 07/16/24 History gram oral powder packet (Lokelma) benzonatate 100 mg capsule 100 mg PO TID PRN Cough 07/16/24 07/16/24 History carvedilol 3.125 mg tablet 3.125 mg PO QPM 07/16/24 07/16/24 History methocarbamol 500 mg tablet 500 mg PO TID PRN muscle cramps 07/16/24 07/16/24 History warfarin 3 mg tablet See Rx Instructions .Route .COMPLEX 07/16/24 07/16/24 History warfarin 4 mg tablet See Rx Instructions .Route .COMPLEX 07/16/24 07/16/24 History Laboratory Tests 07/16/24 07/16/24 07/16/24 00:13 13:32 20:17 WBC RBC Hgb 7.5 L g/dL (14.0-18.0) Hct 23.7 L % (42.0-52.0) MCV MCH MCHC RDW Plt Count MPV Immature Gran % (Auto) Neut % (Auto) Lymph % (Auto) Grady % (Auto) Eos % (Auto) Baso % (Auto) Lymph # (Auto) Grady # (Auto) Eos # (Auto) Baso # (Auto) Abs Immat Gran (auto) Absolute Neuts (auto) Absolute Nucleated RBC Nucleated RBC % PT INR APTT Sodium Potassium 4.2 mmol/L (3.4-5.0) Chloride Carbon Dioxide Anion Gap BUN Creatinine Estim Creat Clear Calc Estimated GFR Glucose Calcium Magnesium Total Bilirubin AST ALT Alkaline Phosphatase Total Protein Albumin Hep Bs Antibody Blood Type B Positive Antibody Screen Negative Crossmatch See Detail 07/17/24 07/17/24 07/17/24 04:46 04:46 04:46 WBC 8.1 K/mm3 (4.5-10.0) RBC 2.21 L M/mm3 (4.6-6.20) Hgb 6.5 L* g/dL 6.5 L* g/dL (14.0-18.0) (14.0-18.0) Hct 21.4 L % 20.9 L* % (42.0-52.0) (42.0-52.0) MCV 94.6 fl (80-100) MCH 29.4 pg (26-34) MCHC 31.1 L g/dl (32-36) RDW 17.6 H % (11.5-14.5) Plt Count 262 k/mm3 (150-375) MPV 9.9 fl (7.4-10.4) Immature Gran % (Auto) 0.6 H % (0-0.5) Neut % (Auto) 79.3 H % (45.5-73.1) Lymph % (Auto) 13.7 L % (18.3-44.2) Grady % (Auto) 5.3 % (2.6-8.5) Eos % (Auto) 0.7 % (0-4.4) Baso % (Auto) 0.4 % (0.2-1.2) Lymph # (Auto) 1.11 K/mm3 (0.9-3.2) Grady # (Auto) 0.4 K/mm3 (0.1-0.6) Eos # (Auto) 0.1 K/mm3 (0-0.3) Baso # (Auto) 0.0 K/mm3 (0.0-0.1) Abs Immat Gran (auto) 0.05 H K/mm3 (0.00-0.031) Absolute Neuts (auto) 6.4 K/mm3 (1.3-6.7) Absolute Nucleated RBC 0.000 K/mm3 (0.0-0.012) Nucleated RBC % 0.0 % (0.0-0.2) PT INR APTT Sodium 135 L mmol/L (137-145) Potassium 4.1 mmol/L (3.4-5.0) Chloride 97 L mmol/L (98-107) Carbon Dioxide 29 mmol/L (22-30) Anion Gap 9 mmol/L (4-12) BUN 53 H mg/dL (9-20) Creatinine 4.40 H mg/dL (0.7-1.3) Estim Creat Clear Calc 20 ml/min Estimated GFR 14 L (59 - ) Glucose 104 mg/dL (65-110) Calcium 7.7 L mg/dL (8.4-10.2) Magnesium 2.1 mg/dL (1.6-2.3) Total Bilirubin 1.2 mg/dL (0.2-1.3) AST 26 U/L (17-59) ALT 18 U/L (6-50) Alkaline Phosphatase 158 H U/L (38-126) Total Protein 7.0 g/dL (6.3-8.2) Albumin 3.2 L g/dL (3.5-5.1) Hep Bs Antibody Blood Type Antibody Screen Crossmatch 07/17/24 07/17/24 07/17/24 04:47 09:18 09:18 WBC 9.0 K/mm3 (4.5-10.0) RBC 2.69 L M/mm3 (4.6-6.20) Hgb 7.9 L g/dL Cancelled (14.0-18.0) Hct 25.5 L % (42.0-52.0) MCV MCH MCHC RDW Plt Count MPV Immature Gran % (Auto) Neut % (Auto) Lymph % (Auto) Grady % (Auto) Eos % (Auto) Baso % (Auto) Lymph # (Auto) Grady # (Auto) Eos # (Auto) Baso # (Auto) Abs Immat Gran (auto) Absolute Neuts (auto) Absolute Nucleated RBC Nucleated RBC % PT 26.5 H D Seconds (11.1-14.7) INR 2.4 APTT Sodium Potassium Chloride Carbon Dioxide Anion Gap BUN Creatinine Estim Creat Clear Calc Estimated GFR Glucose Calcium Magnesium Total Bilirubin AST ALT Alkaline Phosphatase Total Protein Albumin Hep Bs Antibody Blood Type Antibody Screen Crossmatch 07/17/24 09:18 WBC RBC Hgb Hct Cancelled MCV 94.8 fl (80-100) MCH 29.4 pg (26-34) MCHC 31.0 L g/dl (32-36) RDW 17.3 H % (11.5-14.5) Plt Count 226 k/mm3 (150-375) MPV 9.0 fl (7.4-10.4) Immature Gran % (Auto) 0.4 % (0-0.5) Neut % (Auto) 84.3 H % (45.5-73.1) Lymph % (Auto) 8.4 L % (18.3-44.2) Grady % (Auto) 5.8 % (2.6-8.5) Eos % (Auto) 0.7 % (0-4.4) Baso % (Auto) 0.4 % (0.2-1.2) Lymph # (Auto) 0.75 L K/mm3 (0.9-3.2) Grady # (Auto) 0.5 K/mm3 (0.1-0.6) Eos # (Auto) 0.1 K/mm3 (0-0.3) Baso # (Auto) 0.0 K/mm3 (0.0-0.1) Abs Immat Gran (auto) 0.04 H K/mm3 (0.00-0.031) Absolute Neuts (auto) 7.6 H K/mm3 (1.3-6.7) Absolute Nucleated RBC 0.000 K/mm3 (0.0-0.012) Nucleated RBC % 0.0 % (0.0-0.2) PT 25.6 H Seconds (11.1-14.7) INR 2.3 APTT 62.8 H Seconds (22.3-36.8) Sodium Potassium Chloride Carbon Dioxide Anion Gap BUN Creatinine Estim Creat Clear Calc Estimated GFR Glucose Calcium Magnesium Total Bilirubin AST ALT Alkaline Phosphatase Total Protein Albumin Hep Bs Antibody Pending Blood Type Antibody Screen Crossmatch Patient hx anesthesia problems: none Family hx anesthesia problems: none Results Review: All pre-operative results and documents have been reviewed as part of the pre- operative evaluation. [facility] Past Medical History Medical History Chronic anemia Chronic kidney disease Cirrhosis of liver With portal venous hypertension noted on CT of the abdomen pelvis April 2024 Complete heart block Status post pacemaker implantation. Diastolic dysfunction Endocarditis April 2024 History of blood transfusion History of pneumothorax Hypertension Restless legs syndrome Scrotum swelling Due to seroma Tobacco dependence Umbilical hernia Vitamin D deficiency Surgical History Surgical History Aortic valve replaced History of inguinal hernia repair (2004) History of permanent cardiac pacemaker placement For complete heart block. History of renal stent Pacemaker Family History Family History Other Cerebrovascular accident Heart disease Hypertension Social History Social History Social History: Patient lives with his father who was in his 80s. Patient reports that he smokes cigars on occasion. He denies any history of alcohol or illicit substance use. He is on disability after he fractured his back in 2004. 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 He and his were for 35 years prior to her . They had 5 biologic children and 10 adopted children. Surrogate medical decision maker: Flaco Cho (father) [phone]. Code status: Full code. Smoking packs per day: 0.5 Smoking cigarettes per day: 10.0 Years smoked: 20 Smoking pack-years: 10.00 Smoking status: Current some day smoker Tobacco type: cigars Additional smoking assessment comments: occasional cigar smoker Alcohol intake: never Substance use: former Substance use type: marijuana Other substance usage details: Cannabis Gummy Unknown Dose but uses for pain/discomfort Do You Feel Safe in your Home?: Yes Lack of Transportation: No Lack of Food: Never True Current Housing: I Have Housing Concerned About Future Housing: Decline to Answer Difficulty Paying Gas/Electric Bills: Decline to Answer Difficulty Paying for Meds: Decline to Answer Currently Unemployed: Decline to Answer Education: Decline to Answer Difficulty w/ Childcare or Family Care: Decline to Answer Living arrangements: with family Additional living arrangements comments: . Additional occupation/education comments: Disabled. Spiritual care concerns: No Anes - Eval Final PreProcedure Day of Procedure 07/17/24 13:21 Patient weight: overweight Heart: regular rate and rhythm (paced) Lungs: clear to auscultation Airway: Mallampati scale class II Neurological: alert and oriented Last oral intake: >/= 8 hours ASA classification: IV Emergent: no Anesthetic plan: proceed Anesthesia type and monitoring: general GIVS and standard monitoring Results Review: All pre-operative results and documents have been reviewed as part of the pre- operative evaluation. Informed Consent: The patient's anesthetic plan and its attendant risks and benefits were discussed with the patient/family/POA. Questions were solicited and answers provided to the satisfaction of the patient/family/POA.
--- NOTE | 2024-07-17 14:35 | WPDGIPROGNO ---
Progress Note: A&P Assessment and Plan (1) Anemia: Code(s): D64.9 - Anemia, unspecified Status: Acute Assessment and Plan: The patient is deemed a good candidate for the procedure. Consent signed. Will proceed. Subjective Date/time seen: 07/17/24 14:35 Interval history: Patient continued to have evidence of drop in hemoglobin to 6.5. He went on dialysis this morning. No evidence of melena. Down here for EGD to rule out active source of bleeding that can explain dropped hemoglobin. Review of Systems Review of Systems: All systems reviewed & are unremarkable except as noted in HPI and below Exam Narrative: No variation with respect to yesterday's. Objective Data Vital Signs Vital Signs: Vital Signs - 24 hr 07/16/24 16:00 07/16/24 16:00 07/16/24 16:00 Temperature 99 F Pulse Rate 94 98 Respiratory Rate 28 H Blood Pressure 134/67 Pulse Oximetry 95 Oxygen Delivery Room Air Oxygen Flow Rate Fraction of Inspired Oxygen 07/16/24 17:01 07/16/24 18:00 07/16/24 21:17 Temperature 99.4 F Pulse Rate 105 H 105 H 103 H Respiratory Rate 28 H Blood Pressure 138/69 Pulse Oximetry 94 Oxygen Delivery Oxygen Flow Rate Fraction of Inspired Oxygen 07/16/24 20:00 07/16/24 22:00 07/16/24 20:40 Temperature Pulse Rate 100 93 Respiratory Rate Blood Pressure Pulse Oximetry Oxygen Delivery Room Air Oxygen Flow Rate Fraction of Inspired Oxygen 07/17/24 00:56 07/17/24 00:00 07/17/24 00:00 Temperature Pulse Rate 99 95 Respiratory Rate 28 H Blood Pressure 134/57 L Pulse Oximetry 95 Oxygen Delivery Room Air Oxygen Flow Rate Fraction of Inspired Oxygen 07/17/24 02:00 07/17/24 04:27 07/17/24 04:00 Temperature 97.8 F Pulse Rate 89 89 Respiratory Rate 20 Blood Pressure 106/42 L Pulse Oximetry 97 Oxygen Delivery Room Air Oxygen Flow Rate Fraction of Inspired Oxygen 07/17/24 04:00 07/17/24 06:12 07/17/24 06:30 Temperature 98.8 F 98.6 F Pulse Rate 89 89 89 Respiratory Rate 20 18 Blood Pressure 100/54 L 103/44 L Pulse Oximetry 97 97 Oxygen Delivery Oxygen Flow Rate Fraction of Inspired Oxygen 07/17/24 06:00 07/17/24 07:30 07/17/24 07:59 Temperature 98.5 F 98.8 F Pulse Rate 90 89 67 Respiratory Rate 18 18 Blood Pressure 109/41 L 114/62 Pulse Oximetry 92 92 Oxygen Delivery Oxygen Flow Rate Fraction of Inspired Oxygen 07/17/24 08:00 07/17/24 08:00 07/17/24 08:09 Temperature Pulse Rate 90 Respiratory Rate Blood Pressure Pulse Oximetry Oxygen Delivery Room Air Oxygen Flow Rate Fraction of Inspired Oxygen 98 07/17/24 08:09 07/17/24 10:00 07/17/24 12:00 Temperature 98.4 F Pulse Rate 89 89 Respiratory Rate 17 Blood Pressure 118/75 Pulse Oximetry 98 Oxygen Delivery Room Air Oxygen Flow Rate Fraction of Inspired Oxygen 07/17/24 12:00 07/17/24 12:51 07/17/24 12:00 Temperature 97.8 F 98.4 F Pulse Rate 90 88 94 Respiratory Rate 28 H 20 Blood Pressure 104/53 L 102/43 L Pulse Oximetry 88 L 97 Oxygen Delivery Room Air Oxygen Flow Rate Fraction of Inspired Oxygen 07/17/24 12:00 07/17/24 08:25 07/17/24 08:30 Temperature 98.5 F Pulse Rate 89 89 90 Respiratory Rate 16 Blood Pressure 112/67 119/69 123/73 Pulse Oximetry 100 Oxygen Delivery Oxygen Flow Rate Fraction of Inspired Oxygen 07/17/24 08:45 07/17/24 09:00 07/17/24 09:15 Temperature Pulse Rate 90 89 90 Respiratory Rate Blood Pressure 124/68 129/75 126/71 Pulse Oximetry Oxygen Delivery Oxygen Flow Rate Fraction of Inspired Oxygen 07/17/24 09:30 07/17/24 09:45 07/17/24 10:00 Temperature Pulse Rate 89 90 98 Respiratory Rate Blood Pressure 121/70 123/74 129/73 Pulse Oximetry Oxygen Delivery Oxygen Flow Rate Fraction of Inspired Oxygen 07/17/24 10:15 07/17/24 10:30 07/17/24 10:45 Temperature Pulse Rate 89 89 89 Respiratory Rate Blood Pressure 138/77 120/79 128/82 Pulse Oximetry Oxygen Delivery Oxygen Flow Rate Fraction of Inspired Oxygen 07/17/24 11:00 07/17/24 11:15 07/17/24 11:30 Temperature Pulse Rate 89 91 89 Respiratory Rate Blood Pressure 130/73 127/79 98/57 L Pulse Oximetry Oxygen Delivery Oxygen Flow Rate Fraction of Inspired Oxygen 07/17/24 11:45 07/17/24 11:55 07/17/24 12:52 Temperature Pulse Rate 90 89 Respiratory Rate Blood Pressure 99/56 L 117/64 Pulse Oximetry Oxygen Delivery Nasal Cannula Oxygen Flow Rate 3 Fraction of Inspired Oxygen Intake/Output Intake/Output: Intake & Output 07/14/24 07/15/24 07/16/24 07/17/24 23:59 23:59 23:59 23:59 Intake Total 2490 350 Output Total 1999 Balance 2490 -1650 Meds/Results Medications: Active Medications Generic Name Dose Route Start Last Admin Trade Name Freq PRN Reason Stop Dose Admin Acetaminophen 650 mg 07/17/24 10:05 07/17/24 11:00 Acetaminophen 325 Mg Tablet PO 650 mg Q4H PRN Administration Mild Pain (1-3) or Fever Benzonatate 100 mg 07/16/24 12:58 07/16/24 17:01 Benzonatate 100 Mg Capsule PO 100 mg TID PRN Administration Cough Carvedilol 3.125 mg 07/16/24 18:00 07/16/24 17:01 Carvedilol 3.125 Mg Tablet PO 3.125 mg QPM [facility] Administration Epoetin Parish-epbx 10,000 units 07/17/24 09:00 07/17/24 12:28 Epoetin Parish-Epbx 10,000 Units/Ml Vial IV PUSH Not Given MOWEFR@09 [facility] Heparin Sodium (Porcine) 6,500 units 07/17/24 08:49 Heparin Sodium 5,000 Units/Ml Vial IV PUSH PRN PRN aPTT less than 55 seconds Heparin Sodium (Porcine) 3,500 units 07/17/24 08:49 Heparin Sodium 5,000 Units/Ml Vial IV PUSH PRN PRN aPTT 55 - 70 seconds Sodium Chloride 250 mls @ 30 mls/hr 07/17/24 08:33 07/17/24 12:27 Normal Saline Iv IV CONT 07/17/24 16:52 Not Given .Q8H20M [facility] Heparin Sodium/Dextrose 25,000 units in 250 mls @ 15 mls/hr 07/17/24 09:15 Heparin Sodium/D5w 100 Units/Ml IV CONT .[id number] [facility] Protocol 1,500 UNITS/HR Sodium Chloride 500 mls @ 10 mls/hr 07/17/24 12:55 07/17/24 12:58 Normal Saline Iv IV CONT 10 mls/hr .Q24H ALLY Administration Methocarbamol 500 mg 07/16/24 08:06 07/16/24 17:01 Methocarbamol 500 Mg Tablet PO 500 mg TID PRN Administration muscle cramps Ondansetron HCl 4 mg 07/16/24 20:51 Ondansetron Inj 4 Mg/2 Ml Vial IV PUSH Q6H PRN Nausea And Vomiting Pantoprazole Sodium 40 mg 07/16/24 09:00 07/16/24 20:56 Pantoprazole Sodium Iv 40 Mg Vial IV PUSH 40 mg Q12HR ALLY Administration Sodium Zirconium Cyclosilicate 10 gm 07/16/24 13:07 07/16/24 13:11 Sodium Zirconium Cyclosilicate 10 Gm Powd.Pack PO 10 gm DAILY PRN Administration hyperkalemia Vitamin D 4,000 units 07/16/24 09:00 07/16/24 09:47 Cholecalciferol 1,000 Units Tablet PO 4,000 units DAILY ALLY Administration Radiology Results: ITS Impressions Chest X-Ray 07/16/24 08:36 Impression: Moderate bibasilar pulmonary edema/atelectasis with moderate bilateral pleural effusions. Support line, as above. Cardiomegaly, status post mitral valve replacement. Abdomen X-Ray 07/16/24 08:54 Impression: Pacemaker. Moderate bilateral pleural effusions. Nonspecific bowel gas pattern. Labs Labs: Laboratory Results - last 24 hr 07/16/24 07/16/24 07/17/24 00:13 20:17 04:46 WBC 8.1 RBC 2.21 L Hgb 7.5 L 6.5 L* Hct 23.7 L MCV MCH MCHC RDW Plt Count MPV Immature Gran % (Auto) Neut % (Auto) Lymph % (Auto) [place] % (Auto) Eos % (Auto) Baso % (Auto) Lymph # (Auto) [place] # (Auto) Eos # (Auto) Baso # (Auto) Abs Immat Gran (auto) Absolute Neuts (auto) Absolute Nucleated RBC Nucleated RBC % PT INR APTT Sodium Potassium Chloride Carbon Dioxide Anion Gap BUN Creatinine Estim Creat Clear Calc Estimated GFR Glucose Calcium Magnesium Total Bilirubin AST ALT Alkaline Phosphatase Total Protein Albumin Blood Type B Positive Antibody Screen Negative Crossmatch See Detail 07/17/24 07/17/24 07/17/24 04:46 04:46 04:47 WBC RBC Hgb 6.5 L* Hct 21.4 L 20.9 L* MCV 94.6 MCH 29.4 MCHC 31.1 L RDW 17.6 H Plt Count 262 MPV 9.9 Immature Gran % (Auto) 0.6 H Neut % (Auto) 79.3 H Lymph % (Auto) 13.7 L [place] % (Auto) 5.3 Eos % (Auto) 0.7 Baso % (Auto) 0.4 Lymph # (Auto) 1.11 [place] # (Auto) 0.4 Eos # (Auto) 0.1 Baso # (Auto) 0.0 Abs Immat Gran (auto) 0.05 H Absolute Neuts (auto) 6.4 Absolute Nucleated RBC 0.000 Nucleated RBC % 0.0 PT 26.5 H D INR 2.4 APTT Sodium 135 L Potassium 4.1 Chloride 97 L Carbon Dioxide 29 Anion Gap 9 BUN 53 H Creatinine 4.40 H Estim Creat Clear Calc 20 Estimated GFR 14 L Glucose 104 Calcium 7.7 L Magnesium 2.1 Total Bilirubin 1.2 AST 26 ALT 18 Alkaline Phosphatase 158 H Total Protein 7.0 Albumin 3.2 L Blood Type Antibody Screen Crossmatch 07/17/24 07/17/24 07/17/24 09:18 09:18 09:18 WBC 9.0 RBC 2.69 L Hgb 7.9 L Cancelled Hct 25.5 L Cancelled MCV 94.8 MCH 29.4 MCHC 31.0 L RDW 17.3 H Plt Count 226 MPV 9.0 Immature Gran % (Auto) 0.4 Neut % (Auto) 84.3 H Lymph % (Auto) 8.4 L [place] % (Auto) 5.8 Eos % (Auto) 0.7 Baso % (Auto) 0.4 Lymph # (Auto) 0.75 L [place] # (Auto) 0.5 Eos # (Auto) 0.1 Baso # (Auto) 0.0 Abs Immat Gran (auto) 0.04 H Absolute Neuts (auto) 7.6 H Absolute Nucleated RBC 0.000 Nucleated RBC % 0.0 PT 25.6 H INR 2.3 APTT 62.8 H Sodium Potassium Chloride Carbon Dioxide Anion Gap BUN Creatinine Estim Creat Clear Calc Estimated GFR Glucose Calcium Magnesium Total Bilirubin AST ALT Alkaline Phosphatase Total Protein Albumin Blood Type Antibody Screen Crossmatch
[2024-07-17] MEDS: BENZOCAINE (*SP) 60 ML SPRAY CAN (HURRICAINE) 1 SPRAY MUCOUS MEM (14:43)
--- NOTE | 2024-07-17 14:48 | PM.IMPN ---
Progress Note: A&P Assessment and Plan (1) Acute on chronic anemia: Code(s): D64.9 - Anemia, unspecified Status: Acute (2) Melanotic stools: Code(s): K92.1 - Melena Status: Acute (3) Elevated troponin: Code(s): R79.89 - Other specified abnormal findings of blood chemistry Status: Acute (4) End-stage renal disease on hemodialysis: Code(s): N18.6 - End stage renal disease; Z99.2 - Dependence on renal dialysis Status: Acute (5) Chest pain: Qualifiers: Chest pain type: unspecified Qualified Code(s): R07.9 - Chest pain, unspecified Code(s): R07.9 - Chest pain, unspecified Status: Acute (6) Aortic valve replaced: Code(s): Z95.2 - Presence of prosthetic heart valve Status: Acute (7) Presence of other heart-valve replacement: Code(s): Z95.4 - Presence of other heart-valve replacement Status: Acute Plan This is a 59-year-old male who presents to the ED with chest pain and shortness of breath. She was recently discharged from [facility] after his valve surgery about a week ago. He has been on anticoagulation with warfarin.He also reported associated generalized weakness. His vitals were stable on ED evaluation. Laboratory workup revealed hemoglobin of 5.7. His discharge hemoglobin was 7.7. He reported some dark stool. Suggesting GI blood loss. He received 1 unit of packed red blood cell transfusion with appropriate rise. GI has been consulted and plan for EGD today Will continue to monitor H& H. FOBT was also positive. On PPI b.i.d.. Transfuse p.r.n. to keep hemoglobin more than 7 Warfarin on hold however INR is lowered to 2.4. Will bridge with heparin drip after his EGD as per recommended by aspnet developer. His troponin came back elevated but remained flat. Likely due to anemia and/or underlying end-stage renal disease. Cardiology has been consulted. Recommends heparin bridging due to mechanical valve INR supratherapeutic at 3.4. On admission. 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 He is going for an EGD later today. Discussed with aspnet developer. Received 1 unit of packed red blood cell transfusion earlier today. Review of Systems Review of Systems: All systems reviewed & are unremarkable except as noted in HPI and below Exam Narrative: GENERAL: Well-appearing, well-nourished, and in no acute distress. HEAD: Normocephalic, atraumatic. EYES: PERRLA and EOMI. ENT: Nares clear, no rhinorrhea or epistaxis. Mucous membranes moist. NECK: Supple. CHEST: Clear to auscultation. No respiratory distress. HEART: Regular rate and rhythm. No murmur heard. Normal peripheral pulses. ABDOMEN: Soft, nontender, nondistended, normal active bowel sounds. EXTREMITIES: Normal range of motion. No edema. SKIN: Warm, dry, no rash. NEURO: No focal deficits. Alert and oriented x3. PSYCH: Normal mood and affect. Objective Data Vital Signs Vital Signs: Vital Signs - 24 hr 07/16/24 16:00 07/16/24 16:00 07/16/24 16:00 Temperature 99 F Pulse Rate 94 98 Respiratory Rate 28 H Blood Pressure 134/67 Pulse Oximetry 95 Oxygen Delivery Room Air Oxygen Flow Rate Fraction of Inspired Oxygen 07/16/24 17:01 07/16/24 18:00 07/16/24 21:17 Temperature 99.4 F Pulse Rate 105 H 105 H 103 H Respiratory Rate 28 H Blood Pressure 138/69 Pulse Oximetry 94 Oxygen Delivery Oxygen Flow Rate Fraction of Inspired Oxygen 07/16/24 20:00 07/16/24 22:00 07/16/24 20:40 Temperature Pulse Rate 100 93 Respiratory Rate Blood Pressure Pulse Oximetry Oxygen Delivery Room Air Oxygen Flow Rate Fraction of Inspired Oxygen 07/17/24 00:56 07/17/24 00:00 07/17/24 00:00 Temperature Pulse Rate 99 95 Respiratory Rate 28 H Blood Pressure 134/57 L Pulse Oximetry 95 Oxygen Delivery Room Air Oxygen Flow Rate Fraction of Inspired Oxygen 07/17/24 02:00 07/17/24 04:27 07/17/24 04:00 Temperature 97.8 F Pulse Rate 89 89 Respiratory Rate 20 Blood Pressure 106/42 L Pulse Oximetry 97 Oxygen Delivery Room Air Oxygen Flow Rate Fraction of Inspired Oxygen 07/17/24 04:00 07/17/24 06:12 07/17/24 06:30 Temperature 98.8 F 98.6 F Pulse Rate 89 89 89 Respiratory Rate 20 18 Blood Pressure 100/54 L 103/44 L Pulse Oximetry 97 97 Oxygen Delivery Oxygen Flow Rate Fraction of Inspired Oxygen 07/17/24 06:00 07/17/24 07:30 07/17/24 07:59 Temperature 98.5 F 98.8 F Pulse Rate 90 89 67 Respiratory Rate 18 18 Blood Pressure 109/41 L 114/62 Pulse Oximetry 92 92 Oxygen Delivery Oxygen Flow Rate Fraction of Inspired Oxygen 07/17/24 08:00 07/17/24 08:00 07/17/24 08:09 Temperature Pulse Rate 90 Respiratory Rate Blood Pressure Pulse Oximetry Oxygen Delivery Room Air Oxygen Flow Rate Fraction of Inspired Oxygen 98 07/17/24 08:09 07/17/24 10:00 07/17/24 12:00 Temperature 98.4 F Pulse Rate 89 89 Respiratory Rate 17 Blood Pressure 118/75 Pulse Oximetry 98 Oxygen Delivery Room Air Oxygen Flow Rate Fraction of Inspired Oxygen 07/17/24 12:00 07/17/24 12:51 07/17/24 12:00 Temperature 97.8 F 98.4 F Pulse Rate 90 88 94 Respiratory Rate 28 H 20 Blood Pressure 104/53 L 102/43 L Pulse Oximetry 88 L 97 Oxygen Delivery Room Air Oxygen Flow Rate Fraction of Inspired Oxygen 07/17/24 12:00 07/17/24 08:25 07/17/24 08:30 Temperature 98.5 F Pulse Rate 89 89 90 Respiratory Rate 16 Blood Pressure 112/67 119/69 123/73 Pulse Oximetry 100 Oxygen Delivery Oxygen Flow Rate Fraction of Inspired Oxygen 07/17/24 08:45 07/17/24 09:00 07/17/24 09:15 Temperature Pulse Rate 90 89 90 Respiratory Rate Blood Pressure 124/68 129/75 126/71 Pulse Oximetry Oxygen Delivery Oxygen Flow Rate Fraction of Inspired Oxygen 07/17/24 09:30 07/17/24 09:45 07/17/24 10:00 Temperature Pulse Rate 89 90 98 Respiratory Rate Blood Pressure 121/70 123/74 129/73 Pulse Oximetry Oxygen Delivery Oxygen Flow Rate Fraction of Inspired Oxygen 07/17/24 10:15 07/17/24 10:30 07/17/24 10:45 Temperature Pulse Rate 89 89 89 Respiratory Rate Blood Pressure 138/77 120/79 128/82 Pulse Oximetry Oxygen Delivery Oxygen Flow Rate Fraction of Inspired Oxygen 07/17/24 11:00 07/17/24 11:15 07/17/24 11:30 Temperature Pulse Rate 89 91 89 Respiratory Rate Blood Pressure 130/73 127/79 98/57 L Pulse Oximetry Oxygen Delivery Oxygen Flow Rate Fraction of Inspired Oxygen 07/17/24 11:45 07/17/24 11:55 07/17/24 12:52 Temperature Pulse Rate 90 89 Respiratory Rate Blood Pressure 99/56 L 117/64 Pulse Oximetry Oxygen Delivery Nasal Cannula Oxygen Flow Rate 3 Fraction of Inspired Oxygen Intake/Output Intake/Output: Intake & Output 07/14/24 07/15/24 07/16/24 07/17/24 23:59 23:59 23:59 23:59 Intake Total 2490 350 Output Total 1999 Balance 2490 -1650 Meds/Results Medications: Active Medications Generic Name Dose Route Start Last Admin Trade Name Freq PRN Reason Stop Dose Admin Acetaminophen 650 mg 07/17/24 10:05 07/17/24 11:00 Acetaminophen 325 Mg Tablet PO 650 mg Q4H PRN Administration Mild Pain (1-3) or Fever Benzonatate 100 mg 07/16/24 12:58 07/16/24 17:01 Benzonatate 100 Mg Capsule PO 100 mg TID PRN Administration Cough Carvedilol 3.125 mg 07/16/24 18:00 07/16/24 17:01 Carvedilol 3.125 Mg Tablet PO 3.125 mg QPM [facility] Administration Epoetin Parish-epbx 10,000 units 07/17/24 09:00 07/17/24 12:28 Epoetin Parish-Epbx 10,000 Units/Ml Vial IV PUSH Not Given MOWEFR@09 [facility] Heparin Sodium (Porcine) 6,500 units 07/17/24 08:49 Heparin Sodium 5,000 Units/Ml Vial IV PUSH PRN PRN aPTT less than 55 seconds Heparin Sodium (Porcine) 3,500 units 07/17/24 08:49 Heparin Sodium 5,000 Units/Ml Vial IV PUSH PRN PRN aPTT 55 - 70 seconds Sodium Chloride 250 mls @ 30 mls/hr 07/17/24 08:33 07/17/24 12:27 Normal Saline Iv IV CONT 07/17/24 16:52 Not Given .Q8H20M [facility] Heparin Sodium/Dextrose 25,000 units in 250 mls @ 15 mls/hr 07/17/24 09:15 Heparin Sodium/D5w 100 Units/Ml IV CONT .[id number] [facility]Y Protocol 1,500 UNITS/HR Sodium Chloride 500 mls @ 10 mls/hr 07/17/24 12:55 07/17/24 12:58 Normal Saline Iv IV CONT 10 mls/hr .Q24H ALLY Administration Methocarbamol 500 mg 07/16/24 08:06 07/16/24 17:01 Methocarbamol 500 Mg Tablet PO 500 mg TID PRN Administration muscle cramps Ondansetron HCl 4 mg 07/16/24 20:51 Ondansetron Inj 4 Mg/2 Ml Vial IV PUSH Q6H PRN Nausea And Vomiting Pantoprazole Sodium 40 mg 07/16/24 09:00 07/16/24 20:56 Pantoprazole Sodium Iv 40 Mg Vial IV PUSH 40 mg Q12HR ALLY Administration Sodium Zirconium Cyclosilicate 10 gm 07/16/24 13:07 07/16/24 13:11 Sodium Zirconium Cyclosilicate 10 Gm Powd.Pack PO 10 gm DAILY PRN Administration hyperkalemia Vitamin D 4,000 units 07/16/24 09:00 07/16/24 09:47 Cholecalciferol 1,000 Units Tablet PO 4,000 units DAILY ALLY Administration Radiology Results: ITS Impressions Chest X-Ray 07/16/24 08:36 Impression: Moderate bibasilar pulmonary edema/atelectasis with moderate bilateral pleural effusions. Support line, as above. Cardiomegaly, status post mitral valve replacement. Abdomen X-Ray 07/16/24 08:54 Impression: Pacemaker. Moderate bilateral pleural effusions. Nonspecific bowel gas pattern. Labs Labs: Laboratory Results - last 24 hr 07/16/24 07/16/24 07/17/24 00:13 20:17 04:46 WBC 8.1 RBC 2.21 L Hgb 7.5 L 6.5 L* Hct 23.7 L MCV MCH MCHC RDW Plt Count MPV Immature Gran % (Auto) Neut % (Auto) Lymph % (Auto) [place] % (Auto) Eos % (Auto) Baso % (Auto) Lymph # (Auto) [place] # (Auto) Eos # (Auto) Baso # (Auto) Abs Immat Gran (auto) Absolute Neuts (auto) Absolute Nucleated RBC Nucleated RBC % PT INR APTT Sodium Potassium Chloride Carbon Dioxide Anion Gap BUN Creatinine Estim Creat Clear Calc Estimated GFR Glucose Calcium Magnesium Total Bilirubin AST ALT Alkaline Phosphatase Total Protein Albumin Blood Type B Positive Antibody Screen Negative Crossmatch See Detail 07/17/24 07/17/24 07/17/24 04:46 04:46 04:47 WBC RBC Hgb 6.5 L* Hct 21.4 L 20.9 L* MCV 94.6 MCH 29.4 MCHC 31.1 L RDW 17.6 H Plt Count 262 MPV 9.9 Immature Gran % (Auto) 0.6 H Neut % (Auto) 79.3 H Lymph % (Auto) 13.7 L [place] % (Auto) 5.3 Eos % (Auto) 0.7 Baso % (Auto) 0.4 Lymph # (Auto) 1.11 [place] # (Auto) 0.4 Eos # (Auto) 0.1 Baso # (Auto) 0.0 Abs Immat Gran (auto) 0.05 H Absolute Neuts (auto) 6.4 Absolute Nucleated RBC 0.000 Nucleated RBC % 0.0 PT 26.5 H D INR 2.4 APTT Sodium 135 L Potassium 4.1 Chloride 97 L Carbon Dioxide 29 Anion Gap 9 BUN 53 H Creatinine 4.40 H Estim Creat Clear Calc 20 Estimated GFR 14 L Glucose 104 Calcium 7.7 L Magnesium 2.1 Total Bilirubin 1.2 AST 26 ALT 18 Alkaline Phosphatase 158 H Total Protein 7.0 Albumin 3.2 L Blood Type Antibody Screen Crossmatch 07/17/24 07/17/24 07/17/24 09:18 09:18 09:18 WBC 9.0 RBC 2.69 L Hgb 7.9 L Cancelled Hct 25.5 L Cancelled MCV 94.8 MCH 29.4 MCHC 31.0 L RDW 17.3 H Plt Count 226 MPV 9.0 Immature Gran % (Auto) 0.4 Neut % (Auto) 84.3 H Lymph % (Auto) 8.4 L [place] % (Auto) 5.8 Eos % (Auto) 0.7 Baso % (Auto) 0.4 Lymph # (Auto) 0.75 L [place] # (Auto) 0.5 Eos # (Auto) 0.1 Baso # (Auto) 0.0 Abs Immat Gran (auto) 0.04 H Absolute Neuts (auto) 7.6 H Absolute Nucleated RBC 0.000 Nucleated RBC % 0.0 PT 25.6 H INR 2.3 APTT 62.8 H Sodium Potassium Chloride Carbon Dioxide Anion Gap BUN Creatinine Estim Creat Clear Calc Estimated GFR Glucose Calcium Magnesium Total Bilirubin AST ALT Alkaline Phosphatase Total Protein Albumin Blood Type Antibody Screen Crossmatch
[2024-07-17 14:59] LABS: Hepatitis B Surface Anti Res Negative
--- NOTE | 2024-07-17 16:25 | P.PNGI_ITS ---
Progress Note: A&P Assessment and Plan (1) Anemia: Code(s): D64.9 - Anemia, unspecified Status: Acute Assessment and Plan: See EGD report. The patient does not have chronic or acute upper GI bleeding based on these findings. There is no objective evidence of melena or hematochezia. Most likely anemia is multifactorial, mainly secondary to severe renal and bone marrow failure. suggest obtaining an opinion from Hematology. Subjective Date/time seen: 07/17/24 16:25 Objective Data Vital Signs Vital Signs: Vital Signs - 24 hr 07/16/24 17:01 07/16/24 18:00 07/16/24 21:17 Temperature 99.4 F Pulse Rate 105 H 105 H 103 H Respiratory Rate 28 H Blood Pressure 138/69 Pulse Oximetry 94 Oxygen Delivery Oxygen Flow Rate Fraction of Inspired Oxygen 07/16/24 20:00 07/16/24 22:00 07/16/24 20:40 Temperature Pulse Rate 100 93 Respiratory Rate Blood Pressure Pulse Oximetry Oxygen Delivery Room Air Oxygen Flow Rate Fraction of Inspired Oxygen 07/17/24 00:56 07/17/24 00:00 07/17/24 00:00 Temperature Pulse Rate 99 95 Respiratory Rate 28 H Blood Pressure 134/57 L Pulse Oximetry 95 Oxygen Delivery Room Air Oxygen Flow Rate Fraction of Inspired Oxygen 07/17/24 02:00 07/17/24 04:27 07/17/24 04:00 Temperature 97.8 F Pulse Rate 89 89 Respiratory Rate 20 Blood Pressure 106/42 L Pulse Oximetry 97 Oxygen Delivery Room Air Oxygen Flow Rate Fraction of Inspired Oxygen 07/17/24 04:00 07/17/24 06:12 07/17/24 06:30 Temperature 98.8 F 98.6 F Pulse Rate 89 89 89 Respiratory Rate 20 18 Blood Pressure 100/54 L 103/44 L Pulse Oximetry 97 97 Oxygen Delivery Oxygen Flow Rate Fraction of Inspired Oxygen 07/17/24 06:00 07/17/24 07:30 07/17/24 07:59 Temperature 98.5 F 98.8 F Pulse Rate 90 89 67 Respiratory Rate 18 18 Blood Pressure 109/41 L 114/62 Pulse Oximetry 92 92 Oxygen Delivery Oxygen Flow Rate Fraction of Inspired Oxygen 07/17/24 08:00 07/17/24 08:00 07/17/24 08:09 Temperature Pulse Rate 90 Respiratory Rate Blood Pressure Pulse Oximetry Oxygen Delivery Room Air Oxygen Flow Rate Fraction of Inspired Oxygen 98 07/17/24 08:09 07/17/24 10:00 07/17/24 12:00 Temperature 98.4 F Pulse Rate 89 89 Respiratory Rate 17 Blood Pressure 118/75 Pulse Oximetry 98 Oxygen Delivery Room Air Oxygen Flow Rate Fraction of Inspired Oxygen 07/17/24 12:00 07/17/24 12:51 07/17/24 12:00 Temperature 97.8 F 98.4 F Pulse Rate 90 88 94 Respiratory Rate 28 H 20 Blood Pressure 104/53 L 102/43 L Pulse Oximetry 88 L 97 Oxygen Delivery Room Air Oxygen Flow Rate Fraction of Inspired Oxygen 07/17/24 12:00 07/17/24 08:25 07/17/24 08:30 Temperature 98.5 F Pulse Rate 89 89 90 Respiratory Rate 16 Blood Pressure 112/67 119/69 123/73 Pulse Oximetry 100 Oxygen Delivery Oxygen Flow Rate Fraction of Inspired Oxygen 07/17/24 08:45 07/17/24 09:00 07/17/24 09:15 Temperature Pulse Rate 90 89 90 Respiratory Rate Blood Pressure 124/68 129/75 126/71 Pulse Oximetry Oxygen Delivery Oxygen Flow Rate Fraction of Inspired Oxygen 07/17/24 09:30 07/17/24 09:45 07/17/24 10:00 Temperature Pulse Rate 89 90 98 Respiratory Rate Blood Pressure 121/70 123/74 129/73 Pulse Oximetry Oxygen Delivery Oxygen Flow Rate Fraction of Inspired Oxygen 07/17/24 10:15 07/17/24 10:30 07/17/24 10:45 Temperature Pulse Rate 89 89 89 Respiratory Rate Blood Pressure 138/77 120/79 128/82 Pulse Oximetry Oxygen Delivery Oxygen Flow Rate Fraction of Inspired Oxygen 07/17/24 11:00 07/17/24 11:15 07/17/24 11:30 Temperature Pulse Rate 89 91 89 Respiratory Rate Blood Pressure 130/73 127/79 98/57 L Pulse Oximetry Oxygen Delivery Oxygen Flow Rate Fraction of Inspired Oxygen 07/17/24 11:45 07/17/24 11:55 07/17/24 12:52 Temperature Pulse Rate 90 89 Respiratory Rate Blood Pressure 99/56 L 117/64 Pulse Oximetry Oxygen Delivery Nasal Cannula Oxygen Flow Rate 3 Fraction of Inspired Oxygen 07/17/24 15:01 07/17/24 15:11 07/17/24 15:21 Temperature Pulse Rate 89 89 90 Respiratory Rate 26 H 28 H 26 H Blood Pressure 94/50 L 90/50 L 97/58 L Pulse Oximetry 96 96 96 Oxygen Delivery Nasal Cannula Nasal Cannula Nasal Cannula Oxygen Flow Rate 2 2 2 Fraction of Inspired Oxygen Intake/Output Intake/Output: Intake & Output 07/14/24 07/15/24 07/16/24 07/17/24 23:59 23:59 23:59 23:59 Intake Total 2490 400 Output Total 1999 Balance 2490 -1600 Meds/Results Medications: Active Medications Generic Name Dose Route Start Last Admin Trade Name Freq PRN Reason Stop Dose Admin Acetaminophen 650 mg 07/17/24 10:05 07/17/24 11:00 Acetaminophen 325 Mg Tablet PO 650 mg Q4H PRN Administration Mild Pain (1-3) or Fever Benzonatate 100 mg 07/16/24 12:58 07/16/24 17:01 Benzonatate 100 Mg Capsule PO 100 mg TID PRN Administration Cough Carvedilol 3.125 mg 07/16/24 18:00 07/16/24 17:01 Carvedilol 3.125 Mg Tablet PO 3.125 mg QPM ALLY Administration Epoetin Parish-epbx 10,000 units 07/17/24 09:00 07/17/24 12:28 Epoetin Parish-Epbx 10,000 Units/Ml Vial IV PUSH Not Given MOWEFR@09 [facility] Heparin Sodium (Porcine) 6,500 units 07/17/24 08:49 Heparin Sodium 5,000 Units/Ml Vial IV PUSH PRN PRN aPTT less than 55 seconds Heparin Sodium (Porcine) 3,500 units 07/17/24 08:49 Heparin Sodium 5,000 Units/Ml Vial IV PUSH PRN PRN aPTT 55 - 70 seconds Sodium Chloride 250 mls @ 30 mls/hr 07/17/24 08:33 07/17/24 12:27 Normal Saline Iv IV CONT 07/17/24 16:52 Not Given .Q8H20M STA Heparin Sodium/Dextrose 25,000 units in 250 mls @ 15 mls/hr 07/17/24 09:15 Heparin Sodium/D5w 100 Units/Ml IV CONT .[id number] [facility] Protocol 1,500 UNITS/HR Methocarbamol 500 mg 07/16/24 08:06 07/16/24 17:01 Methocarbamol 500 Mg Tablet PO 500 mg TID PRN Administration muscle cramps Ondansetron HCl 4 mg 07/16/24 20:51 Ondansetron Inj 4 Mg/2 Ml Vial IV PUSH Q6H PRN Nausea And Vomiting Pantoprazole Sodium 40 mg 07/16/24 09:00 07/17/24 15:50 Pantoprazole Sodium Iv 40 Mg Vial IV PUSH Not Given Q12HR ALLY Sodium Zirconium Cyclosilicate 10 gm 07/16/24 13:07 07/16/24 13:11 Sodium Zirconium Cyclosilicate 10 Gm Powd.Pack PO 10 gm DAILY PRN Administration hyperkalemia Vitamin D 4,000 units 07/16/24 09:00 07/17/24 15:50 Cholecalciferol 1,000 Units Tablet PO Not Given DAILY [facility] Radiology Results: ITS Impressions Chest X-Ray 07/16/24 08:36 Impression: Moderate bibasilar pulmonary edema/atelectasis with moderate bilateral pleural effusions. Support line, as above. Cardiomegaly, status post mitral valve replacement. Abdomen X-Ray 07/16/24 08:54 Impression: Pacemaker. Moderate bilateral pleural effusions. Nonspecific bowel gas pattern. Labs Labs: Laboratory Results - last 24 hr 07/16/24 07/16/24 07/17/24 00:13 20:17 04:46 WBC 8.1 RBC 2.21 L Hgb 7.5 L 6.5 L* Hct 23.7 L MCV MCH MCHC RDW Plt Count MPV Immature Gran % (Auto) Neut % (Auto) Lymph % (Auto) [place] % (Auto) Eos % (Auto) Baso % (Auto) Lymph # (Auto) [place] # (Auto) Eos # (Auto) Baso # (Auto) Abs Immat Gran (auto) Absolute Neuts (auto) Absolute Nucleated RBC Nucleated RBC % PT INR APTT Sodium Potassium Chloride Carbon Dioxide Anion Gap BUN Creatinine Estim Creat Clear Calc Estimated GFR Glucose Calcium Magnesium Total Bilirubin AST ALT Alkaline Phosphatase Total Protein Albumin Hep Bs Antibody Blood Type B Positive Antibody Screen Negative Crossmatch See Detail 07/17/24 07/17/24 07/17/24 04:46 04:46 04:47 WBC RBC Hgb 6.5 L* Hct 21.4 L 20.9 L* MCV 94.6 MCH 29.4 MCHC 31.1 L RDW 17.6 H Plt Count 262 MPV 9.9 Immature Gran % (Auto) 0.6 H Neut % (Auto) 79.3 H Lymph % (Auto) 13.7 L [place] % (Auto) 5.3 Eos % (Auto) 0.7 Baso % (Auto) 0.4 Lymph # (Auto) 1.11 [place] # (Auto) 0.4 Eos # (Auto) 0.1 Baso # (Auto) 0.0 Abs Immat Gran (auto) 0.05 H Absolute Neuts (auto) 6.4 Absolute Nucleated RBC 0.000 Nucleated RBC % 0.0 PT 26.5 H D INR 2.4 APTT Sodium 135 L Potassium 4.1 Chloride 97 L Carbon Dioxide 29 Anion Gap 9 BUN 53 H Creatinine 4.40 H Estim Creat Clear Calc 20 Estimated GFR 14 L Glucose 104 Calcium 7.7 L Magnesium 2.1 Total Bilirubin 1.2 AST 26 ALT 18 Alkaline Phosphatase 158 H Total Protein 7.0 Albumin 3.2 L Hep Bs Antibody Blood Type Antibody Screen Crossmatch 07/17/24 07/17/24 07/17/24 09:18 09:18 09:18 WBC 9.0 RBC 2.69 L Hgb 7.9 L Cancelled Hct 25.5 L Cancelled MCV 94.8 MCH 29.4 MCHC 31.0 L RDW 17.3 H Plt Count 226 MPV 9.0 Immature Gran % (Auto) 0.4 Neut % (Auto) 84.3 H Lymph % (Auto) 8.4 L [place] % (Auto) 5.8 Eos % (Auto) 0.7 Baso % (Auto) 0.4 Lymph # (Auto) 0.75 L [place] # (Auto) 0.5 Eos # (Auto) 0.1 Baso # (Auto) 0.0 Abs Immat Gran (auto) 0.04 H Absolute Neuts (auto) 7.6 H Absolute Nucleated RBC 0.000 Nucleated RBC % 0.0 PT 25.6 H INR 2.3 APTT 62.8 H Sodium Potassium Chloride Carbon Dioxide Anion Gap BUN Creatinine Estim Creat Clear Calc Estimated GFR Glucose Calcium Magnesium Total Bilirubin AST ALT Alkaline Phosphatase Total Protein Albumin Hep Bs Antibody Negative Blood Type Antibody Screen Crossmatch
[2024-07-17] MEDS: PANTOPRAZOLE SODIUM IV 40 MG VIAL IV PUSH ×2 (16:42→21:51)
[2024-07-17] MEDS: HEPARIN SOD/D5W 100 UNITS/ML 25,000 UNITS/250 ML BAG 15 UNITS IV CONT (16:44)
[2024-07-17] MEDS: BENZONATATE 100 MG CAPSULE PO (16:49)
[2024-07-17] MEDS: methocarbamoL 500 MG TABLET PO (18:23)
--- NOTE | 2024-07-17 21:29 | P.PNCROSS_ITS ---
Event Note Event Note Event Note: I was notified of positive blood cultures gram negative bacilli in aerobic trace le of one set. Patient has previously had multiple blood cultures positive for Klebsiella aerogenes resistant to Augmentin and cefazolin but otherwise susceptible. Ordered UA with culture to check for urine source. Ordered Rocephin 2 gram Q24 hours. The recurrence of infection raises concern for possible infection/colonization of dialysis access site or endocarditis. Patient was also asking for something to help him sleep. Ordered PRN trazodone 50 mg HS.
[2024-07-17] MEDS: cefTRIAXone 2 GM/NS 100 ML 2 GM/100 ML BAG IVPB (21:51)
[2024-07-17] MEDS: traZODone HCL 50 MG TABLET PO (21:52)
--- NOTE | 2024-07-17 23:16 | ECG_ITS ---
Test Date: 2024-07-17 23:23:48 Measurements Intervals [place] Rate: 89 P: 131 ND: 248 QRS: -17 QRSD: 146 T: 148 QT: 395 QTc: 482 Interpretive Statements ELECTRONIC ATRIAL PACEMAKER ELECTRONIC VENTRICULAR PACEMAKER ATYPICAL ECG Compared to ECG 07/16/2024 18:31:47 NO SIGNIFICANT CHANGE Electronically Signed On 07-18-2024 06:00:03 CORPORATE SPECIALIST by Thony Rincon D.O.
[2024-07-17] MEDS: MORPHINE SULFATE (*CRX) 2 MG/ML INJ 1 MG IV PUSH (23:18)
[2024-07-17 23:29] LABS: Partial Thromboplastin Time 79.3 Seconds (22.3-36.8)
[2024-07-18] VITALS (23 sets, daily range): BP systolic 89–114; BP diastolic 42–58; PULSE 68–99; RESP 16–22; TEMP 36.4–36.9; O2SAT 93–100
[2024-07-18 05:13] LABS: Basophils Percent Auto 0.4 % (0.2-1.2); Eosinophils Absolute Auto 0.1 K/mm3 (0-0.3); Hematocrit 23.6 % (42.0-52.0); Hemoglobin 7.3 g/dL (14.0-18.0); Immature Granulocyte Absolute 0.02 K/mm3 (0.00-0.031); Immature Granulocyte Percent A 0.3 % (0-0.5); Lymphocytes Absolute Auto 0.79 K/mm3 (0.9-3.2); Lymphocytes Percent Auto 11.2 % (18.3-44.2); Mean Corpuscular HGB Conc 30.9 g/dl (32-36); Mean Corpuscular Hemoglobin 29.2 pg (26-34); Mean Corpuscular Volume 94.4 fl (80-100); Mean Platelet Volume 9.7 fl (7.4-10.4); Monocytes Absolute Auto 0.6 K/mm3 (0.1-0.6); Monocytes Percent Auto 8.9 % (2.6-8.5); Neutrophils Absolute Auto 5.5 K/mm3 (1.3-6.7); Neutrophils Percent Auto 78.2 % (45.5-73.1); Platelet Count Result 211 k/mm3 (150-375); Red Cell Distribution Width 17.7 % (11.5-14.5); White Blood Count 7.1 K/mm3 (4.5-10.0)
[2024-07-18 05:24] LABS: Partial Thromboplastin Time 80.6 Seconds (22.3-36.8)
[2024-07-18 05:32] LABS: Alanine Aminotransferase 28 U/L (6-50); Albumin Level 2.9 g/dL (3.5-5.1); Alkaline Phosphatase 182 U/L (38-126); Anion Gap 9 mmol/L (4-12); Aspartate Amino Transferase 49 U/L (17-59); Bilirubin,Total 0.9 mg/dL (0.2-1.3); Blood Urea Nitrogen 34 mg/dL (9-20); Calcium 7.6 mg/dL (8.4-10.2); Carbon Dioxide 33 mmol/L (22-30); Chloride 94 mmol/L (98-107); Estimated CRCL calculation 20 ml/min; Estimated Glomerular Filt Rate 17; Glucose 106 mg/dL (65-110); Sodium 136 mmol/L (137-145)
[2024-07-18] MEDS: PANTOPRAZOLE SODIUM IV 40 MG VIAL IV PUSH ×2 (08:22→20:45)
[2024-07-18] MEDS: CHOLECALCIFEROL 1,000 UNITS TABLET 4000 UNITS PO (08:22)
[2024-07-18] MEDS: methocarbamoL 500 MG TABLET PO ×3 (08:23→20:45)
[2024-07-18] MEDS: ACETAMINOPHEN 325 MG TABLET 650 MG PO ×3 (08:23→20:45)
--- NOTE | 2024-07-18 09:35 | P.PNNP_ITS ---
Progress Note: A&P Assessment and Plan (1) Acute renal failure on dialysis: Code(s): N17.9 - Acute kidney failure, unspecified; Z99.2 - Dependence on renal dialysis Status: Acute Assessment and Plan: * as noted by last hospitalization here at [facility] * no evidence of renal recovery during hospitalization at [place] (May 2024) * etiology felt to be secondary to multifactorial ATN: * hypotension/hemodynamic instability * sepsis/infection (+ bacteremia/endocarditis) * prerenal factors * previous cardiac issues/NSTEMI * appears to be dialysis dependent since April 2024 * HD tomorrow and continue M/W/F dialysis schedule * follow trend of repeat labs and UOP to assess for potential renal recovery * however, since he had advanced CKD at baseline (and has been on dialysis previously), it is possible he maybe dialysis dependent (2) Chronic kidney disease, stage IV (severe): Code(s): N18.4 - Chronic kidney disease, stage 4 (severe) Status: Chronic Assessment and Plan: * baseline creatinine has been running ~ 3.3 - 3.8mg/dl prior to April 2024 hospitalization * felt to be secondary hypertension, vascular disease, previous obesity, COURTNEY, and left overs from his previous bouts of XOCHITL/ARF * still has had issues with metabolic acidosis and hyperkalemia at baseline requiring ongoing medical management (3) Bacteremia: Code(s): R78.81 - Bacteremia Status: Acute Assessment and Plan: * blood cultures with GNB * unfortunately, he has multiple potential sources: * mechanical valves * tunneled HD catheter * pacemaker * on antibiotics * follow repeat culture data (4) Anemia: Code(s): D64.9 - Anemia, unspecified Status: Acute Assessment and Plan: * due to XOCHITL, CKD, and possible GI loss * PRBC transfusion per protocol * on Retacrit with dialysis treatment * s/p EGD -- no evidence of active bleeding * follow trend of H/H (5) Congestive heart failure: Code(s): I50.9 - Heart failure, unspecified Status: Acute Assessment and Plan: * as evidenced by admission CXR * likely worsened by severe anemia on admission * fluid removal/ultrafiltration with dialysis as tolerated * follow respiratory status (6) Heart valve replaced: Code(s): Z95.2 - Presence of prosthetic heart valve Status: Acute Assessment and Plan: * noted known 3 valve replacements * careful anticoagulation in the context of #3 * Cardiology following Discussed case with Dr. Vigil -- given patient's complex history now complicated by bacteremia in the context of mechanical valves and pacemaker, may need to consider transfer to a tertiary care center for ongoing treatme nt/evaluation. Will continue to follow. Subjective Date/time seen: 07/18/24 09:35 Interval history: Follow-up for acute kidney injury/acute renal failure on chronic kidney disease requiring CUSTOM DECORATING CONSULTANT/dialysis. Tolerated dialysis treatment as well as PRBC transfusion yesterday; no apparent distress voiced at the time of my visit; positive blood cultures noted; remains hemodynamically stable and reports some improvement in shortness of breath; tolerated EGD procedure yesterday afternoon without any acute issues. Exam Narrative: General: WD/WN male in NAD Heart: normal S1 and S2; no rub Lungs: coarse and decreased at bases Abdomen: soft, nontender, nondistended, positive bowel sounds Extremities: no cyanosis or clubbing; no edema Skin: warm and dry Objective Data Vital Signs Vital Signs: Vital Signs Temp Pulse Resp BP Pulse Ox O2 Del Method O2 Flow Rate 07/18/24 09:13 93 Room Air 07/18/24 09:00 96 Nasal Cannula 2 07/18/24 07:39 98.1 F 99 16 111/58 L 96 07/18/24 06:00 90 07/18/24 04:00 98.5 F 94 22 H 114/52 L 93 07/18/24 03:59 90 07/18/24 03:59 90 18 100 Nasal Cannula 2 07/18/24 02:00 68 07/17/24 23:48 89 07/17/24 23:48 89 18 100 Nasal Cannula 2 07/17/24 23:38 98.3 F 89 18 119/96 H 100 07/17/24 22:00 91 07/17/24 20:00 89 07/17/24 20:00 89 20 97 Room Air 07/17/24 19:50 97.9 F 89 20 95/45 L 97 07/17/24 18:00 90 07/17/24 16:00 Room Air 07/17/24 18:21 80 07/17/24 16:00 99 F 91 22 H 96/53 L 97 07/17/24 15:21 90 26 H 97/58 L 96 Nasal Cannula 2 07/17/24 15:11 89 28 H 90/50 L 96 Nasal Cannula 2 07/17/24 15:01 89 26 H 94/50 L 96 Nasal Cannula 2 07/17/24 12:52 Nasal Cannula 3 07/17/24 11:55 89 117/64 07/17/24 11:45 90 99/56 L 07/17/24 11:30 89 98/57 L 07/17/24 12:00 98.5 F 89 16 112/67 100 07/17/24 12:00 98.4 F 94 20 102/43 L 97 07/17/24 12:51 97.8 F 88 28 H 104/53 L 88 L Room Air 07/17/24 12:00 90 07/17/24 12:00 Room Air Intake/Output Intake/Output: Intake & Output 07/15/24 07/16/24 07/17/24 07/18/24 23:59 23:59 23:59 23:59 Intake Total 2490 2404 886 Output Total 2050 75 Balance 2490 354 811 Meds/Results Medications: Active Medications Generic Name Dose Route Start Last Admin Trade Name Freq PRN Reason Stop Dose Admin Acetaminophen 650 mg 07/17/24 10:05 07/18/24 08:23 Acetaminophen 325 Mg Tablet PO 650 mg Q4H PRN Administration Mild Pain (1-3) or Fever Benzonatate 100 mg 07/16/24 12:58 07/17/24 16:49 Benzonatate 100 Mg Capsule PO 100 mg TID PRN Administration Cough Carvedilol 3.125 mg 07/16/24 18:00 07/17/24 18:21 Carvedilol 3.125 Mg Tablet PO Not Given QPM ALLY Epoetin Parish-epbx 10,000 units 07/17/24 09:00 07/17/24 12:28 Epoetin Parish-Epbx 10,000 Units/Ml Vial IV PUSH Not Given MOWEFR@09 ALLY Heparin Sodium (Porcine) 6,500 units 07/17/24 08:49 Heparin Sodium 5,000 Units/Ml Vial IV PUSH PRN PRN aPTT less than 55 seconds Heparin Sodium (Porcine) 3,500 units 07/17/24 08:49 Heparin Sodium 5,000 Units/Ml Vial IV PUSH PRN PRN aPTT 55 - 70 seconds Heparin Sodium/Dextrose 25,000 units in 250 mls @ 15 mls/hr 07/17/24 09:15 07/18/24 10:18 Heparin Sodium/D5w 100 Units/Ml IV CONT 1,500 units/hr .[id number] ALLY 15 mls/hr Administration Protocol 1,500 UNITS/HR Cefepime HCl 1 gm in 50 mls @ 100 mls/hr 07/18/24 10:20 07/18/24 11:10 Maxipime 1 Gm/Ns 50 Ml IVPB 100 mls/hr DAILY ALLY Administration Methocarbamol 500 mg 07/16/24 08:06 07/18/24 08:23 Methocarbamol 500 Mg Tablet PO 500 mg TID PRN Administration muscle cramps Ondansetron HCl 4 mg 07/16/24 20:51 Ondansetron Inj 4 Mg/2 Ml Vial IV PUSH Q6H PRN Nausea And Vomiting Pantoprazole Sodium 40 mg 07/16/24 09:00 07/18/24 08:22 Pantoprazole Sodium Iv 40 Mg Vial IV PUSH 40 mg Q12HR ALLY Administration Sodium Zirconium Cyclosilicate 10 gm 07/16/24 13:07 07/16/24 13:11 Sodium Zirconium Cyclosilicate 10 Gm Powd.Pack PO 10 gm DAILY PRN Administration hyperkalemia Trazodone HCl 50 mg 07/17/24 21:28 07/17/24 21:52 Trazodone Hcl 50 Mg Tablet PO 50 mg HS PRN Administration Insomnia Vitamin D 4,000 units 07/16/24 09:00 07/18/24 08:22 Cholecalciferol 1,000 Units Tablet PO 4,000 units DAILY ALLY Administration Radiology Results: ITS Impressions Chest X-Ray 07/16/24 08:36 Impression: Moderate bibasilar pulmonary edema/atelectasis with moderate bilateral pleural effusions. Support line, as above. Cardiomegaly, status post mitral valve replacement. Abdomen X-Ray 07/16/24 08:54 Impression: Pacemaker. Moderate bilateral pleural effusions. Nonspecific bowel gas pattern. Labs Labs: Laboratory Tests 07/18/24 04:50 07/18/24 04:50 Calcium 7.6 L Magnesium 2.0 Total Bilirubin 0.9 AST 49 ALT 28 Alkaline Phosphatase 182 H Total Protein 7.0 Albumin 2.9 L Microbiology 07/16/24 05:29 Blood Blood Culture - Preliminary Gram negative bacilli isolated 07/16/24 05:32 Blood Blood Culture - Preliminary Gram negative bacilli isolated
[2024-07-18] MEDS: HEPARIN SOD/D5W 100 UNITS/ML 25,000 UNITS/250 ML BAG 15 UNITS IV CONT (10:18)
[2024-07-18] MEDS: CEFEPIME 1 GM/NS 50 ML 1 GM/50 ML BAG IVPB (11:10)
--- NOTE | 2024-07-18 12:08 | P.PNCA_ITS ---
Progress Note: A&P Assessment and Plan (1) Heart valve replaced: Code(s): Z95.2 - Presence of prosthetic heart valve Status: Acute Plan 59-year-old man with endocarditis and severe sp 25mm On-X AVR with root repair using bovine percardial patch, 31mm [place] MVR with annular repair, and TVr with 28mm annuloplasty ring presents with melena associated with shortness of breath and chest pain Chest pain -demand related secondary to acute anemia which now has resolved with blood transfusion Shortness of breath -demand related secondary to acute anemia which now has resolved with blood transfusion -will need aggressive ultrafiltration with dialysis given pleural effusions Mechanical valves; review of outside records show the following: -25mm On-X AVR with root repair using bovine percardial patch -31mm [place] MVR with annular repair -TVr with 28mm annuloplasty ring -goal INR should be 3-3.5 given fresh mechanical valves -Continue heparin infusion till INR therapeutic, managed by pharmacy Hypertension -goal systolic blood pressure less than 140 in setting of acute bleed -can continue to hold antihypertensives at this time Acute on chronic anemia -EGD (06/2024) shows reflux esophagitis, gastritis, márquez's -stabilized with transfusion for now; stool color getting better - Has baseline HB 7.1-7.7 (prior to this admission). HB 7.7 at discharge post valve replacement last month. HB 7.3 today (07/18/2023). GNB bacteremia On empirical antibiotics With recent placement of mechanical valves he is satting crease is cough sitting of those well as Gram-negative bacteremia. Will continue with empirical IV antibiotics as per the primary team VIGNESH will need to be done to assess his valves. Consider transfer to higher center in case there is need for intervention with GN bacteremia in the setting of revent valve Subjective Date/time seen: 07/18/24 12:08 Interval history: Underwent EGD and dialysis yesterday EGD shows reflux esophagitis, gastritis, Márquez's. No obvious bleeding source Stool color no longer black, getting better Blood culture grew GNB Review of Systems Constitutional: Constitutional: Reports as per HPI Cardiovascular: Cardiovascular: Reports as per HPI Respiratory: Respiratory: Reports as per HPI Exam Const: General: comfortable HENMT: Mouth: Yes moist mucous membranes Eyes: EOM: EOMs intact bilaterally Neck: Neck: no JVD Resp: Effort & Inspection: normal respiratory effort Auscultation: diminished lung sounds Cardio: Rate: regular rate Rhythm: regular rhythm Other: Mechanical S1 and mechanical S2 GI: Other: Pacemaker pocket Neuro: Speech: normal speech Objective Data Vital Signs Vital Signs: Vital Signs - 24 hr 07/17/24 12:51 07/17/24 12:52 07/17/24 15:01 Temperature 36.6 C Pulse Rate 88 89 Respiratory Rate 28 H 26 H Blood Pressure 104/53 L 94/50 L Pulse Oximetry 88 L 96 Oxygen Delivery Room Air Nasal Cannula Nasal Cannula Oxygen Flow Rate 3 2 Fraction of Inspired Oxygen 07/17/24 15:11 07/17/24 15:21 07/17/24 16:00 Temperature 37.2 C Pulse Rate 89 90 91 Respiratory Rate 28 H 26 H 22 H Blood Pressure 90/50 L 97/58 L 96/53 L Pulse Oximetry 96 96 97 Oxygen Delivery Nasal Cannula Nasal Cannula Oxygen Flow Rate 2 2 Fraction of Inspired Oxygen 07/17/24 18:21 07/17/24 16:00 07/17/24 18:00 Temperature Pulse Rate 80 90 Respiratory Rate Blood Pressure Pulse Oximetry Oxygen Delivery Room Air Oxygen Flow Rate Fraction of Inspired Oxygen 07/17/24 19:50 07/17/24 20:00 07/17/24 20:00 Temperature 36.6 C Pulse Rate 89 89 89 Respiratory Rate 20 20 Blood Pressure 95/45 L Pulse Oximetry 97 97 Oxygen Delivery Room Air Oxygen Flow Rate Fraction of Inspired Oxygen 07/17/24 22:00 07/17/24 23:38 07/17/24 23:48 Temperature 36.8 C Pulse Rate 91 89 89 Respiratory Rate 18 18 Blood Pressure 119/96 H Pulse Oximetry 100 100 Oxygen Delivery Nasal Cannula Oxygen Flow Rate 2 Fraction of Inspired Oxygen 07/17/24 23:48 07/18/24 02:00 07/18/24 03:59 Temperature Pulse Rate 89 68 90 Respiratory Rate 18 Blood Pressure Pulse Oximetry 100 Oxygen Delivery Nasal Cannula Oxygen Flow Rate 2 Fraction of Inspired Oxygen 07/18/24 03:59 07/18/24 04:00 07/18/24 06:00 Temperature 36.9 C Pulse Rate 90 94 90 Respiratory Rate 22 H Blood Pressure 114/52 L Pulse Oximetry 93 Oxygen Delivery Oxygen Flow Rate Fraction of Inspired Oxygen 07/18/24 07:39 07/18/24 09:00 07/18/24 09:13 Temperature 36.7 C Pulse Rate 99 Respiratory Rate 16 Blood Pressure 111/58 L Pulse Oximetry 96 96 93 Oxygen Delivery Nasal Cannula Room Air Oxygen Flow Rate 2 Fraction of Inspired Oxygen 28 21 07/18/24 11:36 07/18/24 11:38 07/18/24 10:00 Temperature 36.4 C L Pulse Rate 95 90 Respiratory Rate 20 Blood Pressure 92/42 L 91/47 L Pulse Oximetry 95 Oxygen Delivery Oxygen Flow Rate Fraction of Inspired Oxygen Intake/Output Intake/Output: Intake & Output 07/15/24 07/16/24 07/17/24 07/18/24 23:59 23:59 23:59 23:59 Intake Total 2490 2404 936 Output Total 2050 75 Balance 2490 354 861 Meds/Results Medications: Active Medications Generic Name Dose Route Start Last Admin Trade Name Freq PRN Reason Stop Dose Admin Acetaminophen 650 mg 07/17/24 10:05 07/18/24 08:23 Acetaminophen 325 Mg Tablet PO 650 mg Q4H PRN Administration Mild Pain (1-3) or Fever Benzonatate 100 mg 07/16/24 12:58 07/17/24 16:49 Benzonatate 100 Mg Capsule PO 100 mg TID PRN Administration Cough Carvedilol 3.125 mg 07/16/24 18:00 07/17/24 18:21 Carvedilol 3.125 Mg Tablet PO Not Given QPM [facility] Epoetin Parish-epbx 10,000 units 07/17/24 09:00 07/17/24 12:28 Epoetin Parish-Epbx 10,000 Units/Ml Vial IV PUSH Not Given MOWEFR@09 [facility] Heparin Sodium (Porcine) 6,500 units 07/17/24 08:49 Heparin Sodium 5,000 Units/Ml Vial IV PUSH PRN PRN aPTT less than 55 seconds Heparin Sodium (Porcine) 3,500 units 07/17/24 08:49 Heparin Sodium 5,000 Units/Ml Vial IV PUSH PRN PRN aPTT 55 - 70 seconds Heparin Sodium/Dextrose 25,000 units in 250 mls @ 15 mls/hr 07/17/24 09:15 07/18/24 10:18 Heparin Sodium/D5w 100 Units/Ml IV CONT 1,500 units/hr .[id number] ALLY 15 mls/hr Administration Protocol 1,500 UNITS/HR Cefepime HCl 1 gm in 50 mls @ 100 mls/hr 07/18/24 10:20 07/18/24 12:04 Maxipime 1 Gm/Ns 50 Ml IVPB Infused DAILY ALLY Infusion Methocarbamol 500 mg 07/16/24 08:06 07/18/24 08:23 Methocarbamol 500 Mg Tablet PO 500 mg TID PRN Administration muscle cramps Ondansetron HCl 4 mg 07/16/24 20:51 Ondansetron Inj 4 Mg/2 Ml Vial IV PUSH Q6H PRN Nausea And Vomiting Pantoprazole Sodium 40 mg 07/16/24 09:00 07/18/24 08:22 Pantoprazole Sodium Iv 40 Mg Vial IV PUSH 40 mg Q12HR ALLY Administration Sodium Zirconium Cyclosilicate 10 gm 07/16/24 13:07 07/16/24 13:11 Sodium Zirconium Cyclosilicate 10 Gm Powd.Pack PO 10 gm DAILY PRN Administration hyperkalemia Trazodone HCl 50 mg 07/17/24 21:28 07/17/24 21:52 Trazodone Hcl 50 Mg Tablet PO 50 mg HS PRN Administration Insomnia Vitamin D 4,000 units 07/16/24 09:00 07/18/24 08:22 Cholecalciferol 1,000 Units Tablet PO 4,000 units DAILY ALLY Administration Radiology Results: ITS Impressions Chest X-Ray 07/16/24 08:36 Impression: Moderate bibasilar pulmonary edema/atelectasis with moderate bilateral pleural effusions. Support line, as above. Cardiomegaly, status post mitral valve replacement. Abdomen X-Ray 07/16/24 08:54 Impression: Pacemaker. Moderate bilateral pleural effusions. Nonspecific bowel gas pattern. Labs Labs: Laboratory Results - last 24 hr 07/16/24 07/17/24 07/17/24 05:20 09:18 22:45 WBC RBC Hgb Hct MCV MCH MCHC RDW Plt Count MPV Immature Gran % (Auto) Neut % (Auto) Lymph % (Auto) [place] % (Auto) Eos % (Auto) Baso % (Auto) Lymph # (Auto) [place] # (Auto) Eos # (Auto) Baso # (Auto) Abs Immat Gran (auto) Absolute Neuts (auto) Absolute Nucleated RBC Nucleated RBC % APTT 79.3 H Sodium Potassium Chloride Carbon Dioxide Anion Gap BUN Creatinine Estim Creat Clear Calc Estimated GFR Glucose Calcium Magnesium Ferritin 335.00 H Total Bilirubin AST ALT Alkaline Phosphatase Total Protein Albumin Hep Bs Antibody Negative 07/18/24 04:50 WBC 7.1 RBC 2.50 L Hgb 7.3 L Hct 23.6 L MCV 94.4 MCH 29.2 MCHC 30.9 L RDW 17.7 H Plt Count 211 MPV 9.7 Immature Gran % (Auto) 0.3 Neut % (Auto) 78.2 H Lymph % (Auto) 11.2 L [place] % (Auto) 8.9 H Eos % (Auto) 1.0 Baso % (Auto) 0.4 Lymph # (Auto) 0.79 L [place] # (Auto) 0.6 Eos # (Auto) 0.1 Baso # (Auto) 0.0 Abs Immat Gran (auto) 0.02 Absolute Neuts (auto) 5.5 Absolute Nucleated RBC 0.000 Nucleated RBC % 0.0 APTT 80.6 H Sodium 136 L Potassium 4.0 Chloride 94 L Carbon Dioxide 33 H Anion Gap 9 BUN 34 H D Creatinine 3.70 H Estim Creat Clear Calc 20 Estimated GFR 17 L Glucose 106 Calcium 7.6 L Magnesium 2.0 Ferritin Total Bilirubin 0.9 AST 49 ALT 28 Alkaline Phosphatase 182 H Total Protein 7.0 Albumin 2.9 L Hep Bs Antibody
--- NOTE | 2024-07-18 12:47 | P.PNIM_ITS ---
Progress Note: A&P Assessment and Plan (1) Acute on chronic anemia: Code(s): D64.9 - Anemia, unspecified Status: Acute (2) Melanotic stools: Code(s): K92.1 - Melena Status: Acute (3) Elevated troponin: Code(s): R79.89 - Other specified abnormal findings of blood chemistry Status: Acute (4) End-stage renal disease on hemodialysis: Code(s): N18.6 - End stage renal disease; Z99.2 - Dependence on renal dialysis Status: Acute (5) Chest pain: Qualifiers: Chest pain type: unspecified Qualified Code(s): R07.9 - Chest pain, unspecified Code(s): R07.9 - Chest pain, unspecified Status: Acute (6) Aortic valve replaced: Code(s): Z95.2 - Presence of prosthetic heart valve Status: Acute (7) Presence of other heart-valve replacement: Code(s): Z95.4 - Presence of other heart-valve replacement Status: Acute Plan This is a 59-year-old male who presents to the ED with chest pain and shortness of breath. She was recently discharged from [facility] after his valve surgery about a week ago. He has been on anticoagulation with warfarin.He also reported associated generalized weakness. His vitals were stable on ED evaluation. Laboratory workup revealed hemoglobin of 5.7. His discharge hemoglobin was 7.7. He reported some dark stool. Suggesting GI blood loss. He received 1 unit of packed red blood cell transfusion with appropriate rise. GI has been consulted and plan for EGD today Will continue to monitor H& H. FOBT was also positive. On PPI b.i.d.. Transfuse p.r.n. to keep hemoglobin more than 7 Warfarin on hold however INR is lowered to 2.4. 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 Had heparin drip to continue His troponin came back elevated but remained flat. Likely due to anemia and/or underlying end-stage renal disease. Cardiology has been consulted. Recommends heparin bridging due to mechanical valve INR supratherapeutic at 3.4. On admission. Down to 2.4. Bacteremia now complicating again with positive blood culture with Gram-negative bacilli. He was recently treated for the same with Enterobacter bacteremia in April 2024 with associated endocarditis. Several sources present with dialysis catheter pacemaker that was just placed as well as recent valve replacement. Discussed the case with [facility] team where he was originally treated with accepted the patient for transfer. He will be started on cefepime to cover for the bacteremia. End-stage renal disease on hemodialysis recently started from April 2024 on hemodialysis Wednesday nephrology on board Acute on chronic anemia related to GI blood loss H&H remained stable now Prior history of endocarditis Cirrhosis of liver Moderate to severe mitral valve endocarditisWith Enterobacter bacteremia in April 2024 DVT prophylaxis SCDs Code status full code Subjective Date/time seen: 07/18/24 12:47 Interval history: No overnight events. Blood culture came back positive for Gram-negative bacilli. Remains afebrile. Review of Systems Review of Systems: All systems reviewed & are unremarkable except as noted in HPI and below Exam Narrative: GENERAL: Well-appearing, well-nourished, and in no acute distress. HEAD: Normocephalic, atraumatic. EYES: PERRLA and EOMI. ENT: Nares clear, no rhinorrhea or epistaxis. Mucous membranes moist. NECK: Supple. CHEST: Clear to auscultation. No respiratory distress. HEART: Regular rate and rhythm. No murmur heard. Normal peripheral pulses. ABDOMEN: Soft, nontender, nondistended, normal active bowel sounds. EXTREMITIES: Normal range of motion. No edema. SKIN: Warm, dry, no rash. NEURO: No focal deficits. Alert and oriented x3. PSYCH: Normal mood and affect. Objective Data Vital Signs Vital Signs: Vital Signs - 24 hr 07/17/24 12:51 07/17/24 12:52 07/17/24 15:01 Temperature 97.8 F Pulse Rate 88 89 Respiratory Rate 28 H 26 H Blood Pressure 104/53 L 94/50 L Pulse Oximetry 88 L 96 Oxygen Delivery Room Air Nasal Cannula Nasal Cannula Oxygen Flow Rate 3 2 Fraction of Inspired Oxygen 07/17/24 15:11 07/17/24 15:21 07/17/24 16:00 Temperature 99 F Pulse Rate 89 90 91 Respiratory Rate 28 H 26 H 22 H Blood Pressure 90/50 L 97/58 L 96/53 L Pulse Oximetry 96 96 97 Oxygen Delivery Nasal Cannula Nasal Cannula Oxygen Flow Rate 2 2 Fraction of Inspired Oxygen 07/17/24 18:21 07/17/24 16:00 07/17/24 18:00 Temperature Pulse Rate 80 90 Respiratory Rate Blood Pressure Pulse Oximetry Oxygen Delivery Room Air Oxygen Flow Rate Fraction of Inspired Oxygen 07/17/24 19:50 07/17/24 20:00 07/17/24 20:00 Temperature 97.9 F Pulse Rate 89 89 89 Respiratory Rate 20 20 Blood Pressure 95/45 L Pulse Oximetry 97 97 Oxygen Delivery Room Air Oxygen Flow Rate Fraction of Inspired Oxygen 07/17/24 22:00 07/17/24 23:38 07/17/24 23:48 Temperature 98.3 F Pulse Rate 91 89 89 Respiratory Rate 18 18 Blood Pressure 119/96 H Pulse Oximetry 100 100 Oxygen Delivery Nasal Cannula Oxygen Flow Rate 2 Fraction of Inspired Oxygen 07/17/24 23:48 07/18/24 02:00 07/18/24 03:59 Temperature Pulse Rate 89 68 90 Respiratory Rate 18 Blood Pressure Pulse Oximetry 100 Oxygen Delivery Nasal Cannula Oxygen Flow Rate 2 Fraction of Inspired Oxygen 07/18/24 03:59 07/18/24 04:00 07/18/24 06:00 Temperature 98.5 F Pulse Rate 90 94 90 Respiratory Rate 22 H Blood Pressure 114/52 L Pulse Oximetry 93 Oxygen Delivery Oxygen Flow Rate Fraction of Inspired Oxygen 07/18/24 07:39 07/18/24 09:00 07/18/24 09:13 Temperature 98.1 F Pulse Rate 99 Respiratory Rate 16 Blood Pressure 111/58 L Pulse Oximetry 96 96 93 Oxygen Delivery Nasal Cannula Room Air Oxygen Flow Rate 2 Fraction of Inspired Oxygen 28 21 07/18/24 11:36 07/18/24 11:38 07/18/24 10:00 Temperature 97.5 F L Pulse Rate 95 90 Respiratory Rate 20 Blood Pressure 92/42 L 91/47 L Pulse Oximetry 95 Oxygen Delivery Oxygen Flow Rate Fraction of Inspired Oxygen Intake/Output Intake/Output: Intake & Output 07/15/24 07/16/24 07/17/24 07/18/24 23:59 23:59 23:59 23:59 Intake Total 2490 2404 936 Output Total 2050 75 Balance 2490 147 861 Meds/Results Medications: Active Medications Generic Name Dose Route Start Last Admin Trade Name Freq PRN Reason Stop Dose Admin Acetaminophen 650 mg 07/17/24 10:05 07/18/24 08:23 Acetaminophen 325 Mg Tablet PO 650 mg Q4H PRN Administration Mild Pain (1-3) or Fever Benzonatate 100 mg 07/16/24 12:58 07/17/24 16:49 Benzonatate 100 Mg Capsule PO 100 mg TID PRN Administration Cough Carvedilol 3.125 mg 07/16/24 18:00 07/17/24 18:21 Carvedilol 3.125 Mg Tablet PO Not Given QPM ALLY Epoetin Parish-epbx 10,000 units 07/17/24 09:00 07/17/24 12:28 Epoetin Parish-Epbx 10,000 Units/Ml Vial IV PUSH Not Given MOWEFR@09 [facility] Heparin Sodium (Porcine) 6,500 units 07/17/24 08:49 Heparin Sodium 5,000 Units/Ml Vial IV PUSH PRN PRN aPTT less than 55 seconds Heparin Sodium (Porcine) 3,500 units 07/17/24 08:49 Heparin Sodium 5,000 Units/Ml Vial IV PUSH PRN PRN aPTT 55 - 70 seconds Heparin Sodium/Dextrose 25,000 units in 250 mls @ 15 mls/hr 07/17/24 09:15 07/18/24 10:18 Heparin Sodium/D5w 100 Units/Ml IV CONT 1,500 units/hr .[id number] ALLY 15 mls/hr Administration Protocol 1,500 UNITS/HR Cefepime HCl 1 gm in 50 mls @ 100 mls/hr 07/18/24 10:20 07/18/24 12:04 Maxipime 1 Gm/Ns 50 Ml IVPB Infused DAILY ALLY Infusion Methocarbamol 500 mg 07/16/24 08:06 07/18/24 08:23 Methocarbamol 500 Mg Tablet PO 500 mg TID PRN Administration muscle cramps Ondansetron HCl 4 mg 07/16/24 20:51 Ondansetron Inj 4 Mg/2 Ml Vial IV PUSH Q6H PRN Nausea And Vomiting Pantoprazole Sodium 40 mg 07/16/24 09:00 07/18/24 08:22 Pantoprazole Sodium Iv 40 Mg Vial IV PUSH 40 mg Q12HR ALLY Administration Sodium Zirconium Cyclosilicate 10 gm 07/16/24 13:07 07/16/24 13:11 Sodium Zirconium Cyclosilicate 10 Gm Powd.Pack PO 10 gm DAILY PRN Administration hyperkalemia Trazodone HCl 50 mg 07/17/24 21:28 07/17/24 21:52 Trazodone Hcl 50 Mg Tablet PO 50 mg HS PRN Administration Insomnia Vitamin D 4,000 units 07/16/24 09:00 07/18/24 08:22 Cholecalciferol 1,000 Units Tablet PO 4,000 units DAILY ALLY Administration Radiology Results: ITS Impressions Chest X-Ray 07/16/24 08:36 Impression: Moderate bibasilar pulmonary edema/atelectasis with moderate bilateral pleural effusions. Support line, as above. Cardiomegaly, status post mitral valve replacement. Abdomen X-Ray 07/16/24 08:54 Impression: Pacemaker. Moderate bilateral pleural effusions. Nonspecific bowel gas pattern. Labs Labs: Laboratory Results - last 24 hr 07/16/24 07/17/24 07/17/24 05:20 09:18 22:45 WBC RBC Hgb Hct MCV MCH MCHC RDW Plt Count MPV Immature Gran % (Auto) Neut % (Auto) Lymph % (Auto) [place] % (Auto) Eos % (Auto) Baso % (Auto) Lymph # (Auto) [place] # (Auto) Eos # (Auto) Baso # (Auto) Abs Immat Gran (auto) Absolute Neuts (auto) Absolute Nucleated RBC Nucleated RBC % APTT 79.3 H Sodium Potassium Chloride Carbon Dioxide Anion Gap BUN Creatinine Estim Creat Clear Calc Estimated GFR Glucose Calcium Magnesium Ferritin 335.00 H Total Bilirubin AST ALT Alkaline Phosphatase Total Protein Albumin Hep Bs Antibody Negative 07/18/24 04:50 WBC 7.1 RBC 2.50 L Hgb 7.3 L Hct 23.6 L MCV 94.4 MCH 29.2 MCHC 30.9 L RDW 17.7 H Plt Count 211 MPV 9.7 Immature Gran % (Auto) 0.3 Neut % (Auto) 78.2 H Lymph % (Auto) 11.2 L [place] % (Auto) 8.9 H Eos % (Auto) 1.0 Baso % (Auto) 0.4 Lymph # (Auto) 0.79 L [place] # (Auto) 0.6 Eos # (Auto) 0.1 Baso # (Auto) 0.0 Abs Immat Gran (auto) 0.02 Absolute Neuts (auto) 5.5 Absolute Nucleated RBC 0.000 Nucleated RBC % 0.0 APTT 80.6 H Sodium 136 L Potassium 4.0 Chloride 94 L Carbon Dioxide 33 H Anion Gap 9 BUN 34 H D Creatinine 3.70 H Estim Creat Clear Calc 20 Estimated GFR 17 L Glucose 106 Calcium 7.6 L Magnesium 2.0 Ferritin Total Bilirubin 0.9 AST 49 ALT 28 Alkaline Phosphatase 182 H Total Protein 7.0 Albumin 2.9 L Hep Bs Antibody
[2024-07-18] MEDS: BENZONATATE 100 MG CAPSULE PO ×2 (14:50→20:45)
[2024-07-18] MEDS: carvediloL 3.125 MG TABLET PO (17:23)
[2024-07-18] MEDS: traZODone HCL 50 MG TABLET PO (20:45)
[2024-07-19] VITALS (36 sets, daily range): BP systolic 97–128; BP diastolic 36–86; PULSE 55–95; RESP 18–20; TEMP 36.4–37.5; O2SAT 90–97
[2024-07-19] MEDS: HEPARIN SOD/D5W 100 UNITS/ML 25,000 UNITS/250 ML BAG 15 UNITS IV CONT (00:41)
[2024-07-19 04:16] LABS: Basophils Percent Auto 0.5 % (0.2-1.2); Eosinophils Absolute Auto 0.1 K/mm3 (0-0.3); Eosinophils Percent Auto 1.4 % (0-4.4); Hemoglobin 8.1 g/dL (14.0-18.0); Immature Granulocyte Absolute 0.04 K/mm3 (0.00-0.031); Immature Granulocyte Percent A 0.5 % (0-0.5); Lymphocytes Absolute Auto 0.82 K/mm3 (0.9-3.2); Lymphocytes Percent Auto 11.2 % (18.3-44.2); Mean Corpuscular HGB Conc 31.2 g/dl (32-36); Mean Corpuscular Hemoglobin 29.6 pg (26-34); Mean Corpuscular Volume 94.9 fl (80-100); Mean Platelet Volume 10.1 fl (7.4-10.4); Monocytes Absolute Auto 0.5 K/mm3 (0.1-0.6); Monocytes Percent Auto 7.4 % (2.6-8.5); Neutrophils Absolute Auto 5.8 K/mm3 (1.3-6.7); Platelet Count Result 190 k/mm3 (150-375); Red Blood Count 2.74 M/mm3 (4.6-6.20); Red Cell Distribution Width 17.6 % (11.5-14.5); White Blood Count 7.3 K/mm3 (4.5-10.0)
[2024-07-19 04:38] LABS: Alanine Aminotransferase 25 U/L (6-50); Albumin Level 3.2 g/dL (3.5-5.1); Alkaline Phosphatase 194 U/L (38-126); Anion Gap 10 mmol/L (4-12); Aspartate Amino Transferase 60 U/L (17-59); Bilirubin,Total 0.8 mg/dL (0.2-1.3); Blood Urea Nitrogen 47 mg/dL (9-20); Calcium 7.7 mg/dL (8.4-10.2); Carbon Dioxide 30 mmol/L (22-30); Chloride 95 mmol/L (98-107); Estimated CRCL calculation 19 ml/min; Estimated Glomerular Filt Rate 13; Glucose 114 mg/dL (65-110); Magnesium 2.1 mg/dL (1.6-2.3); Potassium 4.1 mmol/L (3.4-5.0); Sodium 135 mmol/L (137-145)
[2024-07-19] MEDS: HEPARIN SODIUM 5,000 UNITS/ML VIAL 3500 UNITS IV PUSH (06:54)
--- NOTE | 2024-07-19 08:10 | PC.NURSE ---
Pt to dialysis via bed. Heparin gtt infusing.
[2024-07-19] MEDS: SODIUM CHLORIDE 0.9% IV 1,000 ML 999 ML IV CONT (08:16)
[2024-07-19] MEDS: methocarbamoL 500 MG TABLET PO ×2 (08:29→17:22)
[2024-07-19] MEDS: EPOETIN ALFA-EPBX 10,000 UNITS/ML VIAL 10000 UNITS IV PUSH (09:58)
--- NOTE | 2024-07-19 10:45 | P.PNNP_ITS ---
Progress Note: A&P Assessment and Plan (1) Acute renal failure on dialysis: Code(s): N17.9 - Acute kidney failure, unspecified; Z99.2 - Dependence on renal dialysis Status: Acute Assessment and Plan: * as noted by last hospitalization here at [facility] * no evidence of renal recovery during hospitalization at [facility] (May 2024) * etiology felt to be secondary to multifactorial ATN: * hypotension/hemodynamic instability * sepsis/infection (+ bacteremia/endocarditis) * prerenal factors * previous cardiac issues/NSTEMI * appears to be dialysis dependent since April 2024 * HD today and continue M/W/F schedule while hospitalized * follow trend of repeat labs and UOP to assess for potential renal recovery * however, since he had advanced CKD at baseline (and has been on dialysis previously), it is possible he maybe dialysis dependent (2) Chronic kidney disease, stage IV (severe): Code(s): N18.4 - Chronic kidney disease, stage 4 (severe) Status: Chronic Assessment and Plan: * baseline creatinine had been running ~ 3.3 - 3.8mg/dl prior to April 2024 hospitalization * felt to be secondary hypertension, vascular disease, previous obesity, COURTNEY, and left overs from his previous bouts of XOCHITL/ARF * still has had issues with metabolic acidosis and hyperkalemia at baseline requiring ongoing medical management (3) Bacteremia: Code(s): R78.81 - Bacteremia Status: Acute Assessment and Plan: * blood cultures with Klebs aerogenes (Enterobacter) * unfortunately, he has multiple potential sources: * mechanical valves * tunneled HD catheter * pacemaker * on antibiotics * follow repeat culture data (4) Anemia: Code(s): D64.9 - Anemia, unspecified Status: Acute Assessment and Plan: * due to XOCHITL, CKD, and possible GI loss * PRBC transfusion per protocol * on Retacrit with dialysis treatment * s/p EGD -- no evidence of active bleeding * follow trend of H/H (5) Congestive heart failure: Code(s): I50.9 - Heart failure, unspecified Status: Acute Assessment and Plan: * as evidenced by admission CXR * likely worsened by severe anemia on admission * fluid removal/ultrafiltration with dialysis as tolerated * follow respiratory status (6) Heart valve replaced: Code(s): Z95.2 - Presence of prosthetic heart valve Status: Acute Assessment and Plan: * noted known 3 valve replacements * careful anticoagulation in the context of #3 * Cardiology following Will continue to follow. Subjective Date/time seen: 07/19/24 10:45 Interval history: Follow-up for acute kidney injury/acute renal failure on chronic kidney disease requiring APPLICATIONS CONSULTANT/dialysis. Tolerating dialysis treatment at the time of my visit (seen on HD at 10:35AM); H/H relatively stable currently; issues with shortness of breath earlier today associated with productive cough; no other acute events overnight or earlier this morning. Exam Narrative: General: WD/WN male in NAD Heart: normal S1 and S2; no rub Lungs: decreased at bases Abdomen: soft, nontender, nondistended, positive bowel sounds Extremities: no cyanosis or clubbing; no edema Skin: warm and intact Objective Data Vital Signs Vital Signs: Vital Signs Temp Pulse Resp BP Pulse Ox O2 Del Method O2 Flow Rate 07/19/24 10:45 89 107/70 07/19/24 10:30 55 L 119/86 07/19/24 10:15 90 108/66 07/19/24 10:00 87 112/62 07/19/24 09:45 64 102/51 L 07/19/24 09:30 59 L 122/36 L 07/19/24 09:15 89 112/69 07/19/24 09:00 89 128/70 07/19/24 08:45 89 120/68 07/19/24 08:30 90 122/69 07/19/24 08:20 91 110/74 07/19/24 08:16 99.1 F 89 18 122/76 07/19/24 07:42 99.3 F 90 18 109/51 L 94 07/19/24 06:00 91 07/19/24 03:54 98.1 F 89 18 109/54 L 97 07/19/24 03:52 90 07/19/24 03:51 89 18 96 Nasal Cannula 2 07/19/24 02:00 89 07/19/24 00:00 89 07/19/24 00:00 89 18 96 Nasal Cannula 2 07/18/24 23:45 89 18 93/49 L 96 07/18/24 23:35 89 18 89/50 L 96 Nasal Cannula 2 07/18/24 23:42 89 18 89/50 L 96 07/18/24 23:17 98.2 F 89 16 103/49 L 98 07/18/24 23:00 89 Intake/Output Intake/Output: Intake & Output 07/16/24 07/17/24 07/18/24 07/19/24 23:59 23:59 23:59 23:59 Intake Total 2490 2404 936 1675.7 Output Total 2050 75 2001 Balance 2490 354 861 -325.3 Meds/Results Medications: Active Medications Generic Name Dose Route Start Last Admin Trade Name Freq PRN Reason Stop Dose Admin Acetaminophen 650 mg 07/17/24 10:05 07/19/24 12:20 Acetaminophen 325 Mg Tablet PO 650 mg Q4H PRN Administration Mild Pain (1-3) or Fever Benzonatate 100 mg 07/16/24 12:58 07/19/24 17:25 Benzonatate 100 Mg Capsule PO 100 mg TID PRN Administration Cough Carvedilol 3.125 mg 07/16/24 18:00 07/19/24 17:59 Carvedilol 3.125 Mg Tablet PO Not Given QPM PENDING SALE TO [facility] Epoetin Parsih-epbx 10,000 units 07/17/24 09:00 07/19/24 09:58 Epoetin Parish-Epbx 10,000 Units/Ml Vial IV PUSH 10,000 units MOWEFR@09 [facility]END[facility] Administration Heparin Sodium (Porcine) 6,500 units 07/17/24 08:49 07/19/24 14:41 Heparin Sodium 5,000 Units/Ml Vial IV PUSH 6,500 units PRN PRN Administration aPTT less than 55 seconds Heparin Sodium (Porcine) 3,500 units 07/17/24 08:49 07/19/24 06:54 Heparin Sodium 5,000 Units/Ml Vial IV PUSH 3,500 units PRN PRN Administration aPTT 55 - 70 seconds Heparin Sodium/Dextrose 25,000 units in 250 mls @ 20 mls/hr 07/17/24 09:15 07/19/24 19:04 Heparin Sodium/D5w 100 Units/Ml IV CONT 2,000 units/hr .[id number] ALLY 20 mls/hr Administration Protocol 2,000 UNITS/HR Cefepime HCl 1 gm in 50 mls @ 100 mls/hr 07/18/24 10:20 07/19/24 14:03 Maxipime 1 Gm/Ns 50 Ml IVPB Infused DAILY PENDING SALE TO [facility] Infusion Albumin Human 50 mls @ 999 mls/hr 07/19/24 04:55 Albutein IVPB 08/18/24 04:54 Q10M PRN HYPOTENSION Lorazepam 0.5 mg 07/19/24 17:15 07/19/24 17:22 Lorazepam (*Crx) 0.5 Mg Tablet PO 0.5 mg Q6H PRN Administration Anxiety Methocarbamol 500 mg 07/16/24 08:06 07/19/24 17:22 Methocarbamol 500 Mg Tablet PO 500 mg TID PRN Administration muscle cramps Ondansetron HCl 4 mg 07/16/24 20:51 Ondansetron Inj 4 Mg/2 Ml Vial IV PUSH Q6H PRN Nausea And Vomiting Pantoprazole Sodium 40 mg 07/16/24 09:00 07/19/24 20:15 Pantoprazole Sodium Iv 40 Mg Vial IV PUSH 40 mg Q12HR ALLY Administration Sodium Zirconium Cyclosilicate 10 gm 07/16/24 13:07 07/16/24 13:11 Sodium Zirconium Cyclosilicate 10 Gm Powd.Pack PO 10 gm DAILY PRN Administration hyperkalemia Trazodone HCl 50 mg 07/17/24 21:28 07/19/24 20:15 Trazodone Hcl 50 Mg Tablet PO 50 mg HS PRN Administration Insomnia Vitamin D 4,000 units 07/16/24 09:00 07/19/24 12:15 Cholecalciferol 1,000 Units Tablet PO Not Given DAILY PENDING SALE TO [facility] Radiology Results: ITS Impressions Chest X-Ray 07/16/24 08:36 Impression: Moderate bibasilar pulmonary edema/atelectasis with moderate bilateral pleural effusions. Support line, as above. Cardiomegaly, status post mitral valve replacement. Abdomen X-Ray 07/16/24 08:54 Impression: Pacemaker. Moderate bilateral pleural effusions. Nonspecific bowel gas pattern. Labs Labs: Laboratory Tests 07/19/24 03:47 07/19/24 03:47 Calcium 7.7 L Magnesium 2.1 Total Bilirubin 0.8 AST 60 H ALT 25 Alkaline Phosphatase 194 H Total Protein 7.0 Albumin 3.2 L Microbiology 07/16/24 05:29 Blood Blood Culture - Preliminary Klebs aerogenes (Enterobacter) 07/16/24 05:32 Blood Blood Culture - Preliminary Klebs aerogenes (Enterobacter)
[2024-07-19] MEDS: HEPARIN SODIUM 1,000 UNITS/ML VIAL 5000 UNITS (11:50)
--- NOTE | 2024-07-19 12:06 | P.PNIM_ITS ---
Progress Note: A&P Assessment and Plan (1) Acute on chronic anemia: Code(s): D64.9 - Anemia, unspecified Status: Acute Assessment and Plan: Patient presented with chest pain, SOB and GNW. He was recently discharged from [facility] after his valve surgery about a week ago. He has been on anticoagulation with warfarin. Vitals were stable on ED evaluation. Hemoglobin of 5.7. His discharge hemoglobin was 7.7. He reported dark stool and FOBT was positive. Warfarin held. He received total of 2U PRBCs. GI consulted. PPI started. 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 Please see report for details. There was no evidence of acute or recent bleeding coming from the stomach or duodenum to explain low Hgb Hgb better at 8.1. Warfarin remains on hold. Heparin drip restarted after his EGD as per recommended by vaccines solutions specialist. Follow. Transfuse p.r.n. to keep hemoglobin more than 7 (2) Bacteremia: Code(s): R78.81 - Bacteremia Status: Acute Assessment and Plan: Patient was here in April and found to bacteremia with Enterobacter and endocarditis. He was transferred and underwent valve surgery. BCx drawn here again show Enterobacter. Several sources present with dialysis catheter, pacemaker as well as recent valve replacement. The case was discussed with [facility] team where he was originally treated and they have accepted the patient for transfer. He was started on cefepime Awaiting sensitivities. Repeat BCs. (3) Presence of other heart-valve replacement: Code(s): Z95.4 - Presence of other heart-valve replacement Status: Acute Assessment and Plan: In April, VIGNESH showed aortic valve is a bicuspid aortic valve with STUART 1.0- 1.2 cm2, consistent with moderate stenosis. VIGNESH also showing vegetation posterior mitral valve. Patient was sent to [facility]. Patient now has mechanical valves with a 25mm On-X AVR with root repair using bovine percardial patch, 31mm [place] MVR with annular repair and TVr with 28mm annuloplasty ring. Cardiology consulted. Goal INR should be 3-3.5 given fresh mechanical valves Continue heparin infusion for now (4) Melanotic stools: Code(s): K92.1 - Melena Status: Acute Assessment and Plan: Possibly a lower SB bleed, possibly AVM. Monitor HH and transfuse as needed. (5) Elevated troponin: Code(s): R79.89 - Other specified abnormal findings of blood chemistry Status: Acute Assessment and Plan: His troponin was elevated but remained flat. He was having CP and SOB prior to admission. Likely due to demand ischemia from anemia. Cardiology consulted. Recommends heparin bridging due to mechanical valve (6) End-stage renal disease on hemodialysis: Code(s): N18.6 - End stage renal disease; Z99.2 - Dependence on renal dialysis Status: Acute Assessment and Plan: ESRD on hemodialysis recently started from April 2024 On HD Wednesday. Nephrology consulted and appreciate theri input (7) Chest pain: Qualifiers: Chest pain type: unspecified Qualified Code(s): R07.9 - Chest pain, unspecified Code(s): R07.9 - Chest pain, unspecified Status: Acute Assessment and Plan: As above (8) Aortic valve replaced: Code(s): Z95.2 - Presence of prosthetic heart valve Status: Acute Assessment and Plan: As above Plan DVT prophylaxis SCDs Code status full code Subjective Date/time seen: 07/19/24 12:06 Interval history: 59yo male with COURTNEY, HTN, CKD, CHF and recent valvular surgery due to endocarditis who presented to the ER from home due to acute onset of shortness of breath and tachycardia. Assuming care. Chart reviewed. Patient was having right posterior shoulder pain that radiated down his back to his hip. No CP. Pain resolved after stopping the heparin drip. SOB this morning with severe cough productive of white-yellow sputum. Exam Narrative: AF 99.1 107/70 89 18 94% ra Gen - NARD Chest - bibasilar crackles o/w clear. HD catheter in right upper chest. CV - RRR S1/S2 with mechanical heart sounds. Tele showing mostly paced rhythm Abd - Soft, NT/ND, Positive BS Ext - No pedal edema Psych - Nml mood and affect Skin - Warm and dry Objective Data Vital Signs Vital Signs: Vital Signs - 24 hr 07/18/24 14:00 07/18/24 15:42 07/18/24 17:23 Temperature 98.3 F Pulse Rate 89 89 95 Respiratory Rate 16 Blood Pressure 94/46 L Pulse Oximetry 94 Oxygen Delivery Oxygen Flow Rate Fraction of Inspired Oxygen 07/18/24 16:00 07/18/24 18:00 07/18/24 19:57 Temperature Pulse Rate 99 90 90 Respiratory Rate 16 Blood Pressure Pulse Oximetry 94 Oxygen Delivery Room Air Oxygen Flow Rate Fraction of Inspired Oxygen 21 07/18/24 19:57 07/18/24 20:28 07/18/24 23:00 Temperature 98.2 F Pulse Rate 89 89 89 Respiratory Rate 16 Blood Pressure 99/56 L Pulse Oximetry 98 Oxygen Delivery Oxygen Flow Rate Fraction of Inspired Oxygen 07/18/24 23:17 07/18/24 23:42 07/18/24 23:35 Temperature 98.2 F Pulse Rate 89 89 89 Respiratory Rate 16 18 18 Blood Pressure 103/49 L 89/50 L 89/50 L Pulse Oximetry 98 96 96 Oxygen Delivery Nasal Cannula Oxygen Flow Rate 2 Fraction of Inspired Oxygen 07/18/24 23:45 07/19/24 00:00 07/19/24 00:00 Temperature Pulse Rate 89 89 89 Respiratory Rate 18 18 Blood Pressure 93/49 L Pulse Oximetry 96 96 Oxygen Delivery Nasal Cannula Oxygen Flow Rate 2 Fraction of Inspired Oxygen 07/19/24 02:00 07/19/24 03:51 07/19/24 03:52 Temperature Pulse Rate 89 89 90 Respiratory Rate 18 Blood Pressure Pulse Oximetry 96 Oxygen Delivery Nasal Cannula Oxygen Flow Rate 2 Fraction of Inspired Oxygen 07/19/24 03:54 07/19/24 06:00 07/19/24 07:42 Temperature 98.1 F 99.3 F Pulse Rate 89 91 90 Respiratory Rate 18 18 Blood Pressure 109/54 L 109/51 L Pulse Oximetry 97 94 Oxygen Delivery Oxygen Flow Rate Fraction of Inspired Oxygen 07/19/24 08:16 07/19/24 08:20 07/19/24 08:30 Temperature 99.1 F Pulse Rate 89 91 90 Respiratory Rate 18 Blood Pressure 122/76 110/74 122/69 Pulse Oximetry Oxygen Delivery Oxygen Flow Rate Fraction of Inspired Oxygen 07/19/24 08:45 07/19/24 09:00 07/19/24 09:15 Temperature Pulse Rate 89 89 89 Respiratory Rate Blood Pressure 120/68 128/70 112/69 Pulse Oximetry Oxygen Delivery Oxygen Flow Rate Fraction of Inspired Oxygen 07/19/24 08:00 07/19/24 09:30 07/19/24 08:00 Temperature Pulse Rate 89 59 L 89 Respiratory Rate 18 Blood Pressure 122/36 L Pulse Oximetry 94 Oxygen Delivery Room Air Oxygen Flow Rate Fraction of Inspired Oxygen 07/19/24 10:00 07/19/24 09:45 07/19/24 10:00 Temperature Pulse Rate 89 64 87 Respiratory Rate Blood Pressure 102/51 L 112/62 Pulse Oximetry Oxygen Delivery Oxygen Flow Rate Fraction of Inspired Oxygen 07/19/24 10:15 07/19/24 10:30 07/19/24 10:45 Temperature Pulse Rate 90 55 L 89 Respiratory Rate Blood Pressure 108/66 119/86 107/70 Pulse Oximetry Oxygen Delivery Oxygen Flow Rate Fraction of Inspired Oxygen Intake/Output Intake/Output: Intake & Output 07/16/24 07/17/24 07/18/24 07/19/24 23:59 23:59 23:59 23:59 Intake Total 2490 2404 936 988.7 Output Total 2050 75 Balance 2490 354 861 988.7 Meds/Results Medications: Active Medications Generic Name Dose Route Start Last Admin Trade Name Freq PRN Reason Stop Dose Admin Acetaminophen 650 mg 07/17/24 10:05 07/18/24 20:45 Acetaminophen 325 Mg Tablet PO 650 mg Q4H PRN Administration Mild Pain (1-3) or Fever Benzonatate 100 mg 07/16/24 12:58 07/18/24 20:45 Benzonatate 100 Mg Capsule PO 100 mg TID PRN Administration Cough Carvedilol 3.125 mg 07/16/24 18:00 07/18/24 17:23 Carvedilol 3.125 Mg Tablet PO 3.125 mg QPM ALLY Administration Epoetin Parish-epbx 10,000 units 07/17/24 09:00 07/17/24 12:28 Epoetin Parish-Epbx 10,000 Units/Ml Vial IV PUSH Not Given MOWEFR@09 [facility] Heparin Sodium (Porcine) 6,500 units 07/17/24 08:49 Heparin Sodium 5,000 Units/Ml Vial IV PUSH PRN PRN aPTT less than 55 seconds Heparin Sodium (Porcine) 3,500 units 07/17/24 08:49 07/19/24 06:54 Heparin Sodium 5,000 Units/Ml Vial IV PUSH 3,500 units PRN PRN Administration aPTT 55 - 70 seconds Heparin Sodium/Dextrose 25,000 units in 250 mls @ 17 mls/hr 07/17/24 09:15 07/19/24 06:53 Heparin Sodium/D5w 100 Units/Ml IV CONT 1,700 units/hr .[id number] ALLY 17 mls/hr Titration Protocol 1,700 UNITS/HR Cefepime HCl 1 gm in 50 mls @ 100 mls/hr 07/18/24 10:20 07/18/24 12:04 Maxipime 1 Gm/Ns 50 Ml IVPB Infused DAILY ALLY Infusion Albumin Human 50 mls @ 999 mls/hr 07/19/24 04:55 Albutein IVPB 08/18/24 04:54 Q10M PRN HYPOTENSION Methocarbamol 500 mg 07/16/24 08:06 07/19/24 08:29 Methocarbamol 500 Mg Tablet PO 500 mg TID PRN Administration muscle cramps Ondansetron HCl 4 mg 07/16/24 20:51 Ondansetron Inj 4 Mg/2 Ml Vial IV PUSH Q6H PRN Nausea And Vomiting Pantoprazole Sodium 40 mg 07/16/24 09:00 07/18/24 20:45 Pantoprazole Sodium Iv 40 Mg Vial IV PUSH 40 mg Q12HR ALLY Administration Sodium Zirconium Cyclosilicate 10 gm 07/16/24 13:07 07/16/24 13:11 Sodium Zirconium Cyclosilicate 10 Gm Powd.Pack PO 10 gm DAILY PRN Administration hyperkalemia Trazodone HCl 50 mg 07/17/24 21:28 07/18/24 20:45 Trazodone Hcl 50 Mg Tablet PO 50 mg HS PRN Administration Insomnia Vitamin D 4,000 units 07/16/24 09:00 07/18/24 08:22 Cholecalciferol 1,000 Units Tablet PO 4,000 units DAILY ALLY Administration Radiology Results: ITS Impressions Chest X-Ray 07/16/24 08:36 Impression: Moderate bibasilar pulmonary edema/atelectasis with moderate bilateral pleural effusions. Support line, as above. Cardiomegaly, status post mitral valve replacement. Abdomen X-Ray 07/16/24 08:54 Impression: Pacemaker. Moderate bilateral pleural effusions. Nonspecific bowel gas pattern. Labs Labs: Laboratory Results - last 24 hr 07/19/24 03:47 WBC 7.3 RBC 2.74 L Hgb 8.1 L Hct 26.0 L MCV 94.9 MCH 29.6 MCHC 31.2 L RDW 17.6 H Plt Count 190 MPV 10.1 Immature Gran % (Auto) 0.5 Neut % (Auto) 79.0 H Lymph % (Auto) 11.2 L Forrest % (Auto) 7.4 Eos % (Auto) 1.4 Baso % (Auto) 0.5 Lymph # (Auto) 0.82 L Forrest # (Auto) 0.5 Eos # (Auto) 0.1 Baso # (Auto) 0.0 Abs Immat Gran (auto) 0.04 H Absolute Neuts (auto) 5.8 Absolute Nucleated RBC 0.000 Nucleated RBC % 0.0 APTT 61.0 H Sodium 135 L Potassium 4.1 Chloride 95 L Carbon Dioxide 30 Anion Gap 10 BUN 47 H D Creatinine 4.50 H Estim Creat Clear Calc 19 Estimated GFR 13 L Glucose 114 H Calcium 7.7 L Magnesium 2.1 Total Bilirubin 0.8 AST 60 H ALT 25 Alkaline Phosphatase 194 H Total Protein 7.0 Albumin 3.2 L
[2024-07-19] MEDS: CEFEPIME 1 GM/NS 50 ML 1 GM/50 ML BAG IVPB (12:14)
[2024-07-19] MEDS: PANTOPRAZOLE SODIUM IV 40 MG VIAL IV PUSH ×2 (12:14→20:15)
--- NOTE | 2024-07-19 12:14 | PC.NURSE ---
Pt returned from dialysis via bed. No issues noted
[2024-07-19] MEDS: ACETAMINOPHEN 325 MG TABLET 650 MG PO (12:20)
--- NOTE | 2024-07-19 13:14 | PC.NURSE ---
Addendum entered by Irene Mcclure RN 07/19/24 14:29: Heparin gtt stopped by medical laboratory specialist RN Original Note: Pt to medical laboratory specialist via stretcher for VIGNESH. Heparin gtt infusing.
--- NOTE | 2024-07-19 14:30 | PC.NURSE ---
RN to bedside to resume heparin gtt and administer heparin bolus per protocol for PTT of 46.0. Pt refusing to be reattached to heparin gtt. My cramps have stopped. I'm not doing it. The pain is too bad. I don't care. RN informed pt of risks with not receiving the medication. Pt still refusing medication. RN notified MD. and RN to bedside. Pt in agreement with resuming heparin gtt
[2024-07-19] MEDS: HEPARIN SODIUM 5,000 UNITS/ML VIAL 6500 UNITS IV PUSH (14:41)
[2024-07-19] MEDS: LORazepam (*CRX) 0.5 MG TABLET PO (17:22)
[2024-07-19] MEDS: BENZONATATE 100 MG CAPSULE PO (17:25)
[2024-07-19] MEDS: HEPARIN SOD/D5W 100 UNITS/ML 25,000 UNITS/250 ML BAG 20 UNITS IV CONT (19:04)
[2024-07-19] MEDS: traZODone HCL 50 MG TABLET PO (20:15)
[2024-07-19 21:21] LABS: Glucose Point of Care 120 mg/dl (65-105)
[2024-07-19 21:46] LABS: Partial Thromboplastin Time 85.6 Seconds (22.3-36.8)
[2024-07-20] VITALS (21 sets, daily range): BP systolic 105–120; BP diastolic 50–77; PULSE 88–99; RESP 14–28; TEMP 36.4–36.9; O2SAT 94–100
--- NOTE | 2024-07-20 | ECHO_ITS ---
Patient Info Name: Chau Cho Age: 59 years : 1965 Gender: Male Ht: 70 in Wt: 207 lbs BSA: 2.18 m2 Technical Quality: Fair Exam Date: 07/20/2024 12:47 PM Exam Location: Echo Lab Patient Status: Inpatient Admit Date: 07/17/2024 Staff Ordering Physician: David Camacho MD (mae/libia) Machine Specialist: Nirmala Fonseca RDCS Attending Provider: Olivia Huston DO Referring Physician: Doug BORRERO; Exam Type: CA echo transesophageal Study Info Indications - Gnb BACTEREMIA Complete two-dimensional, color flow and Doppler transesophageal study is performed. Medications See medication record for details. Sedation provide by anesthesia. Procedure Details The patient arrived in a fasting state after obtaining informed consent. The transesophageal probe was passed into the posterior pharynx, mid-esophagus, distal esophagus, and gastric fundus. Imaging was performed at multiple levels. The patient tolerated the procedure well and there were no complications. The patient was transferred out of the examination area in satisfactory condition. Summary 1. Limited VIGNESH to assess his valves. 2. There is a complex mass measuring 1.45 x 1.09 cm attached mainly to the posterior leaflet of the mechanical valve. There are several hypermobile serpiginous strands attached to the mass, longest measures around 1.0 cm. The post leaflet is not moving well. 3. There is mild posteriorly directed mitral valve regurgitation. 4. There is a 0.65 x 0.70 cm echogenic density attached to the left coronary cusp. Most likely a vegetation. 5. There is a small 0.45 x 0.31 cm echogenic density attached to the atrial side of the ant tricuspid leaflet Most likely a vegetation (best seen in image 46). 6. There is mild tricuspid regurgitation. Recommendations * Consider transfer to a higher center for further management. * Heparin infusion to continue. * Antibiotics as per primary/ID. Aortic Valve There is a 0.65 x 0.70 cm echogenic density attached to the left coronary cusp. Most likely a vegetation. Pulmonic Valve Pulmonary valve is not well visualized. Mitral Valve There is a complex mass measuring 1.45 x 1.09 cm attached mainly to the posterior leaflet of the mechanical valve. There are several hypermobile serpiginous strands attached to the mass, longest measures around 1.0 cm. The post leaflet is not moving well. There is mild posteriorly directed mitral valve regurgitation. Tricuspid Valve There is a small 0.45 x 0.31 cm echogenic density attached to the atrial side of the ant tricuspid leaflet Most likely a vegetation (best seen in image 46). There is mild tricuspid regurgitation. The tricuspid valve is not well visualized. Report Signatures
[2024-07-20] MEDS: methocarbamoL 500 MG TABLET PO ×3 (01:18→15:33)
[2024-07-20] MEDS: BENZONATATE 100 MG CAPSULE PO ×3 (01:18→15:33)
[2024-07-20 04:51] LABS: Basophils Percent Auto 0.4 % (0.2-1.2); Eosinophils Absolute Auto 0.1 K/mm3 (0-0.3); Eosinophils Percent Auto 0.9 % (0-4.4); Hematocrit 26.5 % (42.0-52.0); Hemoglobin 8.1 g/dL (14.0-18.0); Immature Granulocyte Absolute 0.04 K/mm3 (0.00-0.031); Immature Granulocyte Percent A 0.5 % (0-0.5); Lymphocytes Absolute Auto 0.92 K/mm3 (0.9-3.2); Lymphocytes Percent Auto 11.8 % (18.3-44.2); Mean Corpuscular HGB Conc 30.6 g/dl (32-36); Mean Corpuscular Hemoglobin 29.1 pg (26-34); Mean Corpuscular Volume 95.3 fl (80-100); Mean Platelet Volume 10.3 fl (7.4-10.4); Monocytes Absolute Auto 0.6 K/mm3 (0.1-0.6); Neutrophils Absolute Auto 6.2 K/mm3 (1.3-6.7); Neutrophils Percent Auto 79.4 % (45.5-73.1); Platelet Count Result 208 k/mm3 (150-375); Red Blood Count 2.78 M/mm3 (4.6-6.20); Red Cell Distribution Width 17.2 % (11.5-14.5); White Blood Count 7.8 K/mm3 (4.5-10.0)
[2024-07-20 05:05] LABS: Alanine Aminotransferase 21 U/L (6-50); Albumin Level 3.3 g/dL (3.5-5.1); Alkaline Phosphatase 188 U/L (38-126); Anion Gap 7 mmol/L (4-12); Aspartate Amino Transferase 57 U/L (17-59); Bilirubin,Total 0.6 mg/dL (0.2-1.3); Blood Urea Nitrogen 34 mg/dL (9-20); Calcium 7.8 mg/dL (8.4-10.2); Carbon Dioxide 35 mmol/L (22-30); Chloride 96 mmol/L (98-107); Estimated CRCL calculation 21 ml/min; Estimated Glomerular Filt Rate 17; Glucose 111 mg/dL (65-110); Magnesium 2.1 mg/dL (1.6-2.3); Potassium 4.3 mmol/L (3.4-5.0); Sodium 138 mmol/L (137-145)
[2024-07-20] MEDS: HEPARIN SOD/D5W 100 UNITS/ML 25,000 UNITS/250 ML BAG 20 UNITS IV CONT (07:41)
[2024-07-20] MEDS: CEFEPIME 1 GM/NS 50 ML 1 GM/50 ML BAG IVPB (07:43)
[2024-07-20] MEDS: PANTOPRAZOLE SODIUM IV 40 MG VIAL IV PUSH (07:43)
[2024-07-20] MEDS: LORazepam (*CRX) 0.5 MG TABLET PO ×2 (09:09→20:22)
[2024-07-20 11:23] LABS: Partial Thromboplastin Time 62.6 Seconds (22.3-36.8)
[2024-07-20] MEDS: HEPARIN SODIUM 5,000 UNITS/ML VIAL 3500 UNITS IV PUSH (11:27)
--- NOTE | 2024-07-20 12:30 | PC.NURSE ---
Pt to lab technician via stretcher. Heparin gtt paused by lab technician RN
--- NOTE | 2024-07-20 12:52 | P.PNNP_ITS ---
Progress Note: A&P Assessment and Plan (1) Acute renal failure on dialysis: Code(s): N17.9 - Acute kidney failure, unspecified; Z99.2 - Dependence on renal dialysis Status: Acute Assessment and Plan: * as noted by last hospitalization here at [facility] * no evidence of renal recovery during hospitalization at [place] (May 2024) * etiology felt to be secondary to multifactorial ATN: * hypotension/hemodynamic instability * sepsis/infection (+ bacteremia/endocarditis) * prerenal factors * previous cardiac issues/NSTEMI * appears to be dialysis dependent since April 2024 * HD tomorrow and continue M/W/F schedule while hospitalized * follow trend of repeat labs and UOP to assess for potential renal recovery * however, since he had advanced CKD at baseline (and has been on dialysis previously), it is possible he maybe dialysis dependent (2) Chronic kidney disease, stage IV (severe): Code(s): N18.4 - Chronic kidney disease, stage 4 (severe) Status: Chronic Assessment and Plan: * baseline creatinine had been running ~ 3.3 - 3.8mg/dl prior to April 2024 hospitalization * felt to be secondary hypertension, vascular disease, previous obesity, COURTNEY, and left overs from his previous bouts of XOCHITL/ARF * still has had issues with metabolic acidosis and hyperkalemia at baseline requiring ongoing medical management (3) Bacteremia: Code(s): R78.81 - Bacteremia Status: Acute Assessment and Plan: * blood cultures with Klebs aerogenes (Enterobacter) * unfortunately, he has multiple potential sources: * mechanical valves * tunneled HD catheter * pacemaker * on antibiotics * follow repeat culture data (4) Anemia: Code(s): D64.9 - Anemia, unspecified Status: Acute Assessment and Plan: * due to XOCHITL, CKD, and possible GI loss * PRBC transfusion per protocol * on Retacrit with dialysis treatment * s/p EGD -- no evidence of active bleeding * follow trend of H/H (5) Congestive heart failure: Code(s): I50.9 - Heart failure, unspecified Status: Acute Assessment and Plan: * as evidenced by admission CXR * likely worsened by severe anemia on admission * fluid removal/ultrafiltration with dialysis as tolerated * follow respiratory status (6) Heart valve replaced: Code(s): Z95.2 - Presence of prosthetic heart valve Status: Acute Assessment and Plan: * noted known 3 valve replacements * careful anticoagulation in the context of #3 * Cardiology following Will continue to follow. Subjective Date/time seen: 07/20/24 12:52 Interval history: Follow-up for acute kidney injury/acute renal failure on chronic kidney disease requiring [employer]/dialysis. Tolerated dialysis treatment yesterday without any acute issues or problems; still with on/off right posterior shoulder and back pain alhough pain medications seem to help with this issue; denies any acute shortness of breath at the time of my visit; no events overnight or earlier this morning. Exam Narrative: General: WD/WN male in NAD Heart: normal S1 and S2; no rub Lungs: coarse and decreased at bases Abdomen: soft, nontender, nondistended, positive bowel sounds Extremities: no cyanosis or clubbing; no edema Skin: warm and intact Objective Data Vital Signs Vital Signs: Vital Signs Temp Pulse Resp BP Pulse Ox O2 Del Method O2 Flow Rate 07/20/24 12:00 90 28 H 110/62 97 Nasal Cannula 2 07/20/24 11:57 Nasal Cannula 2 07/20/24 11:32 98 F 88 18 109/56 L 99 07/20/24 10:00 89 07/20/24 08:00 89 07/20/24 07:54 92 16 97 Room Air 07/20/24 07:28 98.4 F 92 16 119/63 97 07/20/24 06:00 90 07/20/24 04:00 90 07/20/24 04:00 89 97 Nasal Cannula 2 07/20/24 04:00 98.2 F 89 20 116/66 97 07/20/24 02:00 91 07/20/24 00:00 91 07/19/24 22:00 94 07/20/24 00:00 94 Nasal Cannula 2 07/19/24 20:00 90 07/19/24 20:00 94 Nasal Cannula 2 07/19/24 23:33 98.1 F 93 20 105/56 L 94 07/19/24 20:35 98.4 F 92 20 98/70 L 94 07/19/24 18:00 89 Intake/Output Intake/Output: Intake & Output 07/17/24 07/18/24 07/19/24 07/20/24 23:59 23:59 23:59 23:59 Intake Total 2404 936 1714.4 1529.7 Output Total 2049 Balance 354 861 -286.6 1429.7 Meds/Results Medications: Active Medications Generic Name Dose Route Start Last Admin Trade Name Freq PRN Reason Stop Dose Admin Acetaminophen 650 mg 07/17/24 10:05 07/19/24 12:20 Acetaminophen 325 Mg Tablet PO 650 mg Q4H PRN Administration Mild Pain (1-3) or Fever Benzonatate 100 mg 07/16/24 12:58 07/20/24 15:33 Benzonatate 100 Mg Capsule PO 100 mg TID PRN Administration Cough Carvedilol 3.125 mg 07/16/24 18:00 07/19/24 17:59 Carvedilol 3.125 Mg Tablet PO Not Given QPM [facility] E[place]etin [place]-epbx 10,000 units 07/17/24 09:00 07/19/24 09:58 Epoetin [place]-Epbx 10,000 Units/Ml Vial IV PUSH 10,000 units MOWEFR@09 [facility] Administration Heparin Sodium (Porcine) 6,500 units 07/17/24 08:49 07/19/24 14:41 Heparin Sodium 5,000 Units/Ml Vial IV PUSH 6,500 units PRN PRN Administration aPTT less than 55 seconds Heparin Sodium (Porcine) 3,500 units 07/17/24 08:49 07/20/24 11:27 Heparin Sodium 5,000 Units/Ml Vial IV PUSH 3,500 units PRN PRN Administration aPTT 55 - 70 seconds Heparin Sodium/Dextrose 25,000 units in 250 mls @ 22 mls/hr 07/17/24 09:15 07/20/24 14:11 Heparin Sodium/D5w 100 Units/Ml IV CONT 2,200 units/hr .[id number] [facility] 22 mls/hr Titration Protocol 2,200 UNITS/HR Cefepime HCl 1 gm in 50 mls @ 100 mls/hr 07/18/24 10:20 07/20/24 11:27 Maxipime 1 Gm/Ns 50 Ml IVPB Infused DAILY [facility] Infusion Albumin Human 50 mls @ 999 mls/hr 07/19/24 04:55 Albutein IVPB 08/18/24 04:54 Q10M PRN HYPOTENSION Lorazepam 0.5 mg 07/19/24 17:15 07/20/24 09:09 Lorazepam (*Crx) 0.5 Mg Tablet PO 0.5 mg Q6H PRN Administration Anxiety Methocarbamol 500 mg 07/16/24 08:06 07/20/24 15:33 Methocarbamol 500 Mg Tablet PO 500 mg TID PRN Administration muscle cramps Ondansetron HCl 4 mg 07/16/24 20:51 Ondansetron Inj 4 Mg/2 Ml Vial IV PUSH Q6H PRN Nausea And Vomiting Pantoprazole Sodium 40 mg 07/21/24 09:00 Pantoprazole 40 Mg Tablet PO QAM [facility] Sodium Zirconium Cyclosilicate 10 gm 07/16/24 13:07 07/16/24 13:11 Sodium Zirconium Cyclosilicate 10 Gm Powd.Pack PO 10 gm DAILY PRN Administration hyperkalemia Trazodone HCl 50 mg 07/17/24 21:28 07/19/24 20:15 Trazodone Hcl 50 Mg Tablet PO 50 mg HS PRN Administration Insomnia Vitamin D 4,000 units 07/16/24 09:00 07/20/24 07:42 Cholecalciferol 1,000 Units Tablet PO Not Given DAILY [facility] Radiology Results: ITS Impressions Chest X-Ray 07/16/24 08:36 Impression: Moderate bibasilar pulmonary edema/atelectasis with moderate bilateral pleural effusions. Support line, as above. Cardiomegaly, status post mitral valve replacement. Abdomen X-Ray 07/16/24 08:54 Impression: Pacemaker. Moderate bilateral pleural effusions. Nonspecific bowel gas pattern. Labs Labs: Laboratory Tests 07/20/24 04:01 07/20/24 04:01 Calcium 7.8 L Phosphorus 3.0 Magnesium 2.1 Total Bilirubin 0.6 AST 57 ALT 21 Alkaline Phosphatase 188 H Total Protein 7.0 Albumin 3.3 L Microbiology 07/19/24 09:20 Blood Blood Culture - Preliminary 07/19/24 09:22 Blood Blood Culture - Preliminary 07/16/24 05:32 Blood Blood Culture - Preliminary Klebs aerogenes (Enterobacter)
--- NOTE | 2024-07-20 12:54 | P.PNAN_ITS ---
Anes - Initial Pre Proc Eval Procedure: Operation Date: 07/17/24 14:00 Proposed Procedures p Esophagogastroduodenoscopy - Mauro Henley MD Operation Date: 07/19/24 13:00 Proposed Procedures p Trans Esophageal Echo - David Camacho MD Operation Date: 07/20/24 13:30 Proposed Procedures p Trans Esophageal Echo - David Camacho MD Date/Time: 07/20/24 12:54 Surgeon: Olivia Huston DO Pre Op Diagnosis: Acute anemia, ESRD on HD elevated troponin Patient Data Age: 59 Gender: M Height: 1.78 m Weight: 95 kg Last Vital Signs Temp 98 F 07/20/24 11:32 Pulse 88 07/20/24 11:32 Resp 18 07/20/24 11:32 BP 109/56 L 07/20/24 11:32 Pulse Ox 99 07/20/24 11:32 O2 Del Method Nasal Cannula 07/20/24 11:57 O2 Flow Rate 2 07/20/24 11:57 FiO2 21 07/18/24 19:57 Allergies Allergy/AdvReac Type Severity Reaction Status Date / Time hornet venom Allergy Anaphylaxis Verified 07/16/24 05:41 morphine AdvReac Mild Agitated Verified 07/16/24 00:11 Home Medications Medication Instructions Recorded Confirmed Type cholecalciferol (vitamin D3) 50 100 mcg PO DAILY #60 caps 04/07/23 07/16/24 Rx mcg (2,000 unit) capsule sodium zirconium cyclosilicate 10 10 g PO DAILY PRN hyperkalemia 10/13/23 07/16/24 History gram oral powder packet (Lokelma) benzonatate 100 mg capsule 100 mg PO TID PRN Cough 07/16/24 07/16/24 History carvedilol 3.125 mg tablet 3.125 mg PO QPM 07/16/24 07/16/24 History methocarbamol 500 mg tablet 500 mg PO TID PRN muscle cramps 07/16/24 07/16/24 History warfarin 3 mg tablet See Rx Instructions .Route .COMPLEX 07/16/24 07/16/24 History warfarin 4 mg tablet See Rx Instructions .Route .COMPLEX 07/16/24 07/16/24 History Laboratory Tests 07/16/24 07/19/24 07/19/24 00:13 13:15 20:55 WBC RBC Hgb Hct MCV MCH MCHC RDW Plt Count MPV Immature Gran % (Auto) Neut % (Auto) Lymph % (Auto) [place] % (Auto) Eos % (Auto) Baso % (Auto) Lymph # (Auto) [place] # (Auto) Eos # (Auto) Baso # (Auto) Abs Immat Gran (auto) Absolute Neuts (auto) Absolute Nucleated RBC Nucleated RBC % APTT 46.0 H Seconds (22.3-36.8) Sodium Potassium Chloride Carbon Dioxide Anion Gap BUN Creatinine Estim Creat Clear Calc Estimated GFR Glucose POC Capillary Glucose 120 H mg/dl (65-105) Calcium Phosphorus Magnesium Total Bilirubin AST ALT Alkaline Phosphatase Total Protein Albumin Crossmatch See Detail 07/19/24 07/20/24 07/20/24 20:59 04:01 10:55 WBC 7.8 K/mm3 (4.5-10.0) RBC 2.78 L M/mm3 (4.6-6.20) Hgb 8.1 L g/dL (14.0-18.0) Hct 26.5 L % (42.0-52.0) MCV 95.3 fl (80-100) MCH 29.1 pg (26-34) MCHC 30.6 L g/dl (32-36) RDW 17.2 H % (11.5-14.5) Plt Count 208 k/mm3 (150-375) MPV 10.3 fl (7.4-10.4) Immature Gran % (Auto) 0.5 % (0-0.5) Neut % (Auto) 79.4 H % (45.5-73.1) Lymph % (Auto) 11.8 L % (18.3-44.2) [place] % (Auto) 7.0 % (2.6-8.5) Eos % (Auto) 0.9 % (0-4.4) Baso % (Auto) 0.4 % (0.2-1.2) Lymph # (Auto) 0.92 K/mm3 (0.9-3.2) [place] # (Auto) 0.6 K/mm3 (0.1-0.6) Eos # (Auto) 0.1 K/mm3 (0-0.3) Baso # (Auto) 0.0 K/mm3 (0.0-0.1) Abs Immat Gran (auto) 0.04 H K/mm3 (0.00-0.031) Absolute Neuts (auto) 6.2 K/mm3 (1.3-6.7) Absolute Nucleated RBC 0.000 K/mm3 (0.0-0.012) Nucleated RBC % 0.0 % (0.0-0.2) APTT 85.6 H Seconds 76.0 H Seconds 62.6 H Seconds (22.3-36.8) (22.3-36.8) (22.3-36.8) Sodium 138 mmol/L (137-145) Potassium 4.3 mmol/L (3.4-5.0) Chloride 96 L mmol/L (98-107) Carbon Dioxide 35 H mmol/L (22-30) Anion Gap 7 mmol/L (4-12) BUN 34 H D mg/dL (9-20) Creatinine 3.60 H mg/dL (0.7-1.3) Estim Creat Clear Calc 21 ml/min Estimated GFR 17 L (59 - ) Glucose 111 H mg/dL (65-110) POC Capillary Glucose Calcium 7.8 L mg/dL (8.4-10.2) Phosphorus 3.0 mg/dL (2.5-4.5) Magnesium 2.1 mg/dL (1.6-2.3) Total Bilirubin 0.6 mg/dL (0.2-1.3) AST 57 U/L (17-59) ALT 21 U/L (6-50) Alkaline Phosphatase 188 H U/L (38-126) Total Protein 7.0 g/dL (6.3-8.2) Albumin 3.3 L g/dL (3.5-5.1) Crossmatch Patient hx anesthesia problems: none Family hx anesthesia problems: none Results Review: All pre-operative results and documents have been reviewed as part of the pre- operative evaluation. [facility] Past Medical History Medical History Chronic anemia Chronic kidney disease Cirrhosis of liver With portal venous hypertension noted on CT of the abdomen pelvis April 2024 Complete heart block Status post pacemaker implantation. Diastolic dysfunction Endocarditis April 2024 History of blood transfusion History of pneumothorax Hypertension Restless legs syndrome Scrotum swelling Due to seroma Tobacco dependence Umbilical hernia Vitamin D deficiency Surgical History Surgical History Aortic valve replaced History of inguinal hernia repair (2004) History of permanent cardiac pacemaker placement For complete heart block. History of renal stent Pacemaker Family History Family History Other Cerebrovascular accident Heart disease Hypertension Social History Social History Social History: Patient lives with his father who was in his 80s. Patient reports that he smokes cigars on occasion. He denies any history of alcohol or illicit substance use. He is on disability after he fractured his back in 2004. 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 He and his were for 35 years prior to her . They had 5 biologic children and 10 adopted children. Surrogate medical decision maker: Flaco Cho (father) [phone]. Code status: Full code. Smoking packs per day: 0.5 Smoking cigarettes per day: 10.0 Years smoked: 20 Smoking pack-years: 10.00 Smoking status: Current some day smoker Tobacco type: cigars Additional smoking assessment comments: occasional cigar smoker Alcohol intake: never Substance use: former Substance use type: marijuana Other substance usage details: Cannabis Gummy Unknown Dose but uses for pa in/discomfort Do You Feel Safe in your Home?: Yes Lack of Transportation: No Lack of Food: Never True Current Housing: I Have Housing Concerned About Future Housing: Decline to Answer Difficulty Paying Gas/Electric Bills: Decline to Answer Difficulty Paying for Meds: Decline to Answer Currently Unemployed: Decline to Answer Education: Decline to Answer Difficulty w/ Childcare or Family Care: Decline to Answer Living arrangements: with family Additional living arrangements comments: . Additional occupation/education comments: Disabled. Spiritual care concerns: No Anes - Eval Final PreProcedure Day of Procedure 07/20/24 12:54 Patient weight: obese Heart: regular rate and rhythm Lungs: clear to auscultation Airway: Mallampati scale class II Neurological: alert and oriented Last oral intake: >/= 8 hours ASA classification: IV Emergent: no Anesthetic plan: proceed Anesthesia type and monitoring: general GIVS and standard monitoring Results Review: All pre-operative results and documents have been reviewed as part of the pre- operative evaluation. All notes reviewed. Pt tolerated GIVS for EGD several days ago and notes wendy vides CRNA. Pt w extensive recent cardiac hx, now for VIGNESH to assess status of valves and concerns for vegetations. Informed Consent: The patient's anesthetic plan and its attendant risks and benefits were discussed with the patient/family/POA. Questions were solicited and answers provided to the satisfaction of the patient/family/POA.
--- NOTE | 2024-07-20 12:55 | PCPTNOTE ---
Attempted PT evaluation, pt off the unit for procedure. Will follow.
--- NOTE | 2024-07-20 13:32 | P.PNIM_ITS ---
Progress Note: A&P Assessment and Plan (1) Acute on chronic anemia: Code(s): D64.9 - Anemia, unspecified Status: Acute Assessment and Plan: Patient presented with chest pain, SOB and GNW. He was recently discharged from [place] after his valve surgery about a week ago. He has been on anticoagulation with warfarin. Vitals were stable on ED evaluation. Hemoglobin of 5.7. His discharge hemoglobin was 7.7. He reported dark stool and FOBT was positive. Warfarin held. He received total of 2U PRBCs. GI consulted. PPI started. 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 Please see report for details. There was no evidence of acute or recent bleeding coming from the stomach or duodenum to explain low Hgb Hgb stable in the 8 range. Warfarin remains on hold. Heparin drip restarted after his EGD as per recommended by hard tile setter apprentice. Follow. Transfuse p.r.n. to keep hemoglobin more than 7. (2) Bacteremia: Code(s): R78.81 - Bacteremia Status: Acute Assessment and Plan: Patient was here in April and found to bacteremia with Enterobacter and endocarditis. He was transferred to [place] and underwent valve surgery. BCx drawn this admission again show Enterobacter sensitive to Cefepime. Several sources present with dialysis catheter, dental disease, pacemaker as well as recent valve replacement. He was started on cefepime Repeat BCx NGTD. VIGNESH showing vegetation on the mitral valve Patient has been accepted by [place] for transfer. Collarette Separator himself called and spoke with surgeon about this case (3) Endocarditis: Code(s): I38 - Endocarditis, valve unspecified Status: Acute Assessment and Plan: Patient had VIGNESH today showing: - A complex mass measuring 1.45 x 1.09 cm attached mainly to the posterior leaflet of the mechanical valve. - There are several hypermobile serpiginous strands attached to the mass, the longest measures around 1.0 cm. - The post leaflet is not moving well. - There is mild posteriorly directed mitral valve regurgitation. - There is a 0.65 x 0.70 cm echogenic density attached to the left coronary cusp, most likely a vegetation. - There is a small 0.45 x 0.31 cm echogenic density attached to the atrial side of the ant tricuspid leaflet most likely a vegetation Spoke with [place] again in hopes of expediting his transfer. (4) Presence of other heart-valve replacement: Code(s): Z95.4 - Presence of other heart-valve replacement Status: Acute Assessment and Plan: In April, VIGNESH showed aortic valve is a bicuspid aortic valve with STUART 1.0- 1.2 cm2, consistent with moderate stenosis. VIGNESH also showing vegetation posterior mitral valve. Patient was sent to [place]. Patient now has mechanical valves with a 25mm On-X AVR with root repair using bovine pericardial patch, 31mm [place] Marcos MVR with annular repair and TVr with 28mm annuloplasty ring. Cardiology consulted. Goal INR should be 3-3.5 given fresh mechanical valves Continue heparin infusion for now (5) Melanotic stools: Code(s): K92.1 - Melena Status: Acute Assessment and Plan: Possibly a lower SB bleed, possibly AVM. HH stable Monitor HH and transfuse as needed. (6) Elevated troponin: Code(s): R79.89 - Other specified abnormal findings of blood chemistry Status: Acute Assessment and Plan: His troponin was elevated but remained flat. He was having CP and SOB prior to admission. Likely due to demand ischemia from anemia. Cardiology consulted. Contiue heparin bridging due to mechanical valve (7) End-stage renal disease on hemodialysis: Code(s): N18.6 - End stage renal disease; Z99.2 - Dependence on renal dialysis Status: Acute Assessment and Plan: ESRD on hemodialysis recently started from April 2024 On HD Wednesday. Nephrology consulted and appreciate their input (8) Chest pain: Qualifiers: Chest pain type: unspecified Qualified Code(s): R07.9 - Chest pain, unspecified Code(s): R07.9 - Chest pain, unspecified Status: Acute Assessment and Plan: As above (9) Aortic valve replaced: Code(s): Z95.2 - Presence of prosthetic heart valve Status: Acute Assessment and Plan: As above Plan DVT prophylaxis Heparin Code status full code Subjective Date/time seen: 07/20/24 13:32 Interval history: 59yo male with COURTNEY, HTN, CKD, CHF and recent valvular surgery due to endocarditis who presented to the ER from home due to acute onset of shortness of breath and tachycardia. No problems overnight. Still with crampy right posterior shoulder and back pain that radiates to the right posterior hip area. Pain better with analgesics. no CP or SOB. Exam Narrative: AF 98.0 109/56 99 18 99% ra Gen - NARD Chest - few bibasilar crackles o/w clear. CV - RRR S1/S2 with mechanical heart sounds. Tele showing mostly paced rhythm Abd - Soft, NT/ND, Positive BS Ext - L>R trace bilateral pedal edema. positive thumbs down test right shoulder. pain with internal and external rotation right shoulder but good ROM Psych - Nml mood and affect Skin - Warm and dry Objective Data Vital Signs Vital Signs: Vital Signs - 24 hr 07/19/24 14:00 07/19/24 15:19 07/19/24 16:00 Temperature 98.4 F Pulse Rate 95 89 89 Respiratory Rate 20 20 Blood Pressure 97/54 L Pulse Oximetry 94 94 Oxygen Delivery Room Air Oxygen Flow Rate 07/19/24 16:00 07/19/24 18:00 07/19/24 20:35 Temperature 98.4 F Pulse Rate 90 89 92 Respiratory Rate 20 Blood Pressure 98/70 L Pulse Oximetry 94 Oxygen Delivery Oxygen Flow Rate 07/19/24 23:33 07/19/24 20:00 07/19/24 20:00 Temperature 98.1 F Pulse Rate 93 90 Respiratory Rate 20 Blood Pressure 105/56 L Pulse Oximetry 94 94 Oxygen Delivery Nasal Cannula Oxygen Flow Rate 2 07/20/24 00:00 07/19/24 22:00 07/20/24 00:00 Temperature Pulse Rate 94 91 Respiratory Rate Blood Pressure Pulse Oximetry 94 Oxygen Delivery Nasal Cannula Oxygen Flow Rate 2 07/20/24 02:00 07/20/24 04:00 07/20/24 04:00 Temperature 98.2 F Pulse Rate 91 89 89 Respiratory Rate 20 Blood Pressure 116/66 Pulse Oximetry 97 97 Oxygen Delivery Nasal Cannula Oxygen Flow Rate 2 07/20/24 04:00 07/20/24 06:00 07/20/24 07:28 Temperature 98.4 F Pulse Rate 90 90 92 Respiratory Rate 16 Blood Pressure 119/63 Pulse Oximetry 97 Oxygen Delivery Oxygen Flow Rate 07/20/24 07:54 07/20/24 08:00 07/20/24 10:00 Temperature Pulse Rate 92 89 89 Respiratory Rate 16 Blood Pressure Pulse Oximetry 97 Oxygen Delivery Room Air Oxygen Flow Rate 07/20/24:32 07/20/24 11:57 07/20/24 12:00 Temperature 98 F Pulse Rate 88 88 Respiratory Rate 18 18 Blood Pressure 109/56 L Pulse Oximetry 99 99 Oxygen Delivery Nasal Cannula Room Air Oxygen Flow Rate 2 07/20/24 12:00 Temperature Pulse Rate 99 Respiratory Rate Blood Pressure Pulse Oximetry Oxygen Delivery Oxygen Flow Rate Intake/Output Intake/Output: Intake & Output 07/17/24 07/18/24 07/19/24 07/20/24 23:59 23:59 23:59 23:59 Intake Total 2404 936 1714.4 839.7 Output Total 2050 75 2001 50 Balance 354 861 -286.6 789.7 Meds/Results Medications: Active Medications Generic Name Dose Route Start Last Admin Trade Name Freq PRN Reason Stop Dose Admin Acetaminophen 650 mg 07/17/24 10:05 07/19/24 12:20 Acetaminophen 325 Mg Tablet PO 650 mg Q4H PRN Administration Mild Pain (1-3) or Fever Benzonatate 100 mg 07/16/24 12:58 07/20/24 09:09 Benzonatate 100 Mg Capsule PO 100 mg TID PRN Administration Cough Carvedilol 3.125 mg 07/16/24 18:00 07/19/24 17:59 Carvedilol 3.125 Mg Tablet PO Not Given QPM [facility] Epoetin Parish-epbx 10,000 units 07/17/24 09:00 07/19/24 09:58 Epoetin Parish-Epbx 10,000 Units/Ml Vial IV PUSH 10,000 units MOWEFR@09 [facility] Administration Heparin Sodium (Porcine) 6,500 units 07/17/24 08:49 07/19/24 14:41 Heparin Sodium 5,000 Units/Ml Vial IV PUSH 6,500 units PRN PRN Administration aPTT less than 55 seconds Heparin Sodium (Porcine) 3,500 units 07/17/24 08:49 07/20/24 11:27 Heparin Sodium 5,000 Units/Ml Vial IV PUSH 3,500 units PRN PRN Administration aPTT 55 - 70 seconds Heparin Sodium/Dextrose 25,000 units in 250 mls @ 0 mls/hr 07/17/24 09:15 07/20/24 12:30 Heparin Sodium/D5w 100 Units/Ml IV CONT 0 units/hr .Q0M ALLY 0 mls/hr Titration Protocol 0 UNITS/HR Cefepime HCl 1 gm in 50 mls @ 100 mls/hr 07/18/24 10:20 07/20/24 11:27 Maxipime 1 Gm/Ns 50 Ml IVPB Infused DAILY ALLY Infusion Albumin Human 50 mls @ 999 mls/hr 07/19/24 04:55 Albutein IVPB 08/18/24 04:54 Q10M PRN HYPOTENSION Lorazepam 0.5 mg 07/19/24 17:15 07/20/24 09:09 Lorazepam (*Crx) 0.5 Mg Tablet PO 0.5 mg Q6H PRN Administration Anxiety Methocarbamol 500 mg 07/16/24 08:06 07/20/24 09:09 Methocarbamol 500 Mg Tablet PO 500 mg TID PRN Administration muscle cramps Ondansetron HCl 4 mg 07/16/24 20:51 Ondansetron Inj 4 Mg/2 Ml Vial IV PUSH Q6H PRN Nausea And Vomiting Pantoprazole Sodium 40 mg 07/16/24 09:00 07/20/24 07:43 Pantoprazole Sodium Iv 40 Mg Vial IV PUSH 40 mg Q12HR ALLY Administration Sodium Zirconium Cyclosilicate 10 gm 07/16/24 13:07 07/16/24 13:11 Sodium Zirconium Cyclosilicate 10 Gm Powd.Pack PO 10 gm DAILY PRN Administration hyperkalemia Trazodone HCl 50 mg 07/17/24 21:28 07/19/24 20:15 Trazodone Hcl 50 Mg Tablet PO 50 mg HS PRN Administration Insomnia Vitamin D 4,000 units 07/16/24 09:00 07/20/24 07:42 Cholecalciferol 1,000 Units Tablet PO Not Given DAILY [facility] Radiology Results: ITS Impressions Chest X-Ray 07/16/24 08:36 Impression: Moderate bibasilar pulmonary edema/atelectasis with moderate bilateral pleural effusions. Support line, as above. Cardiomegaly, status post mitral valve replacement. Abdomen X-Ray 07/16/24 08:54 Impression: Pacemaker. Moderate bilateral pleural effusions. Nonspecific bowel gas pattern. Labs Labs: Laboratory Results - last 24 hr 07/16/24 07/19/24 07/19/24 00:13 13:15 20:55 WBC RBC Hgb Hct MCV MCH MCHC RDW Plt Count MPV Immature Gran % (Auto) Neut % (Auto) Lymph % (Auto) [place] % (Auto) Eos % (Auto) Baso % (Auto) Lymph # (Auto) [place] # (Auto) Eos # (Auto) Baso # (Auto) Abs Immat Gran (auto) Absolute Neuts (auto) Absolute Nucleated RBC Nucleated RBC % APTT 46.0 H Sodium Potassium Chloride Carbon Dioxide Anion Gap BUN Creatinine Estim Creat Clear Calc Estimated GFR Glucose POC Capillary Glucose 120 H Calcium Phosphorus Magnesium Total Bilirubin AST ALT Alkaline Phosphatase Total Protein Albumin Crossmatch See Detail 07/19/24 07/20/24 07/20/24 20:59 04:01 10:55 WBC 7.8 RBC 2.78 L Hgb 8.1 L Hct 26.5 L MCV 95.3 MCH 29.1 MCHC 30.6 L RDW 17.2 H Plt Count 208 MPV 10.3 Immature Gran % (Auto) 0.5 Neut % (Auto) 79.4 H Lymph % (Auto) 11.8 L [place] % (Auto) 7.0 Eos % (Auto) 0.9 Baso % (Auto) 0.4 Lymph # (Auto) 0.92 [place] # (Auto) 0.6 Eos # (Auto) 0.1 Baso # (Auto) 0.0 Abs Immat Gran (auto) 0.04 H Absolute Neuts (auto) 6.2 Absolute Nucleated RBC 0.000 Nucleated RBC % 0.0 APTT 85.6 H 76.0 H 62.6 H Sodium 138 Potassium 4.3 Chloride 96 L Carbon Dioxide 35 H Anion Gap 7 BUN 34 H D Creatinine 3.60 H Estim Creat Clear Calc 21 Estimated GFR 17 L Glucose 111 H POC Capillary Glucose Calcium 7.8 L Phosphorus 3.0 Magnesium 2.1 Total Bilirubin 0.6 AST 57 ALT 21 Alkaline Phosphatase 188 H Total Protein 7.0 Albumin 3.3 L Crossmatch
--- NOTE | 2024-07-20 14:11 | PC.NURSE ---
Pt returned from qc lab technician after VIGNESH via stretcher. Heparin gtt resumed at 22ml/hr
[2024-07-20] MEDS: carvediloL 3.125 MG TABLET PO (17:01)
--- NOTE | 2024-07-20 17:03 | PM.PNCARD ---
Progress Note: A&P Assessment and Plan (1) Heart valve replaced: Code(s): Z95.2 - Presence of prosthetic heart valve Status: Acute Plan 59-year-old man with endocarditis and severe sp 25mm On-X AVR with root repair using bovine percardial patch, 31mm [place]cos MVR with annular repair, and TVr with 28mm annuloplasty ring presents with melena associated with shortness of breath and chest pain 1. Prosthetic valve endocarditis He has a complex mass on the posterior leaflet of the mitral valve which is most likely a conglomeration of thrombus, fibrin, and bacteria. There are several serpiginous strands attached to that complex mass -currently on IV antibiotics as per primary team -I called and discussed the case with the CT surgeon at [facility] where he had his surgery last month. He was appraised of the bacteremia as well as T-wave sedation on the mitral and aortic leaflets. The patient is on the waiting list for transfer to them -on heparin infusion. Warfarin on hold now in anticipation for procedure if needed 2. Mechanical valves; review of outside records show the following: -25mm On-X AVR with root repair using bovine percardial patch -31mm St Marcos MVR with annular repair -TVr with 28mm annuloplasty ring -Continue heparin infusion 3. Hypertension -goal systolic blood pressure less than 140 in setting of acute bleed -can continue to hold antihypertensives at this time 4. Acute on chronic anemia -EGD (06/2024) shows reflux esophagitis, gastritis, márquez's -stabilized with transfusion for now; stool color getting better - Has baseline HB 7.1-7.7 (prior to this admission). HB 7.7 at discharge post valve replacement last month. HB 7.3 today (07/18/2023). Subjective Date/time seen: 07/20/24 17:03 Interval history: Underwent VIGNESH today it shows complex vegetation in the mitral chano and a small vegetation in the aortic valve Blood culture grew GNB Review of Systems Constitutional: Constitutional: Reports as per HPI Cardiovascular: Cardiovascular: Reports as per HPI Respiratory: Respiratory: Reports as per HPI Exam Const: General: comfortable HENMT: Mouth: Yes moist mucous membranes Eyes: EOM: EOMs intact bilaterally Neck: Neck: no JVD Resp: Effort & Inspection: normal respiratory effort Auscultation: diminished lung sounds Cardio: Rate: regular rate Rhythm: regular rhythm Other: Mechanical S1 and mechanical S2 GI: Other: Pacemaker pocket Neuro: Speech: normal speech Objective Data Vital Signs Vital Signs: Vital Signs - 24 hr 07/19/24 18:00 07/19/24 20:35 07/19/24 23:33 Temperature 36.9 C 36.7 C Pulse Rate 89 92 93 Respiratory Rate 20 20 Blood Pressure 98/70 L 105/56 L Pulse Oximetry 94 94 Oxygen Delivery Oxygen Flow Rate 07/19/24 20:00 07/19/24 20:00 07/20/24 00:00 Temperature Pulse Rate 90 Respiratory Rate Blood Pressure Pulse Oximetry 94 94 Oxygen Delivery Nasal Cannula Nasal Cannula Oxygen Flow Rate 2 2 07/19/24 22:00 07/20/24 00:00 07/20/24 02:00 Temperature Pulse Rate 94 91 91 Respiratory Rate Blood Pressure Pulse Oximetry Oxygen Delivery Oxygen Flow Rate 07/20/24 04:00 07/20/24 04:00 07/20/24 04:00 Temperature 36.8 C Pulse Rate 89 89 90 Respiratory Rate 20 Blood Pressure 116/66 Pulse Oximetry 97 97 Oxygen Delivery Nasal Cannula Oxygen Flow Rate 2 07/20/24 06:00 07/20/24 07:28 07/20/24 07:54 Temperature 36.9 C Pulse Rate 90 92 92 Respiratory Rate 16 16 Blood Pressure 119/63 Pulse Oximetry 97 97 Oxygen Delivery Room Air Oxygen Flow Rate 07/20/24 08:00 07/20/24 10:00 07/20/24 11:32 Temperature 36.6 C Pulse Rate 89 89 88 Respiratory Rate 18 Blood Pressure 109/56 L Pulse Oximetry 99 Oxygen Delivery Oxygen Flow Rate 07/20/24 11:57 07/20/24 12:00 07/20/24 12:00 Temperature Pulse Rate 88 99 Respiratory Rate 18 Blood Pressure Pulse Oximetry 99 Oxygen Delivery Nasal Cannula Room Air Oxygen Flow Rate 2 07/20/24 13:45 07/20/24 14:00 07/20/24 13:30 Temperature Pulse Rate 90 90 90 Respiratory Rate 28 H 14 19 Blood Pressure 110/62 114/77 105/66 Pulse Oximetry 97 98 99 Oxygen Delivery Nasal Cannula Nasal Cannula Nasal Cannula Oxygen Flow Rate 2 2 4 07/20/24 16:00 07/20/24 17:01 Temperature 36.6 C Pulse Rate 90 92 Respiratory Rate 16 Blood Pressure 118/64 Pulse Oximetry 100 Oxygen Delivery Oxygen Flow Rate Intake/Output Intake/Output: Intake & Output 07/17/24 07/18/24 07/19/24 07/20/24 23:59 23:59 23:59 23:59 Intake Total 2404 936 1714.4 1529.7 Output Total 2050 75 2001 100 Balance 354 861 -286.6 1429.7 Meds/Results Medications: Active Medications Generic Name Dose Route Start Last Admin Trade Name Freq PRN Reason Stop Dose Admin Acetaminophen 650 mg 07/17/24 10:05 07/19/24 12:20 Acetaminophen 325 Mg Tablet PO 650 mg Q4H PRN Administration Mild Pain (1-3) or Fever Benzonatate 100 mg 07/16/24 12:58 07/20/24 15:33 Benzonatate 100 Mg Capsule PO 100 mg TID PRN Administration Cough Carvedilol 3.125 mg 07/16/24 18:00 07/20/24 17:01 Carvedilol 3.125 Mg Tablet PO 3.125 mg QPM [facility] Administration Epoetin Parish-epbx 10,000 units 07/17/24 09:00 07/19/24 09:58 Epoetin Parish-Epbx 10,000 Units/Ml Vial IV PUSH 10,000 units MOWEFR@09 [facility] Administration Heparin Sodium (Porcine) 6,500 units 07/17/24 08:49 07/19/24 14:41 Heparin Sodium 5,000 Units/Ml Vial IV PUSH 6,500 units PRN PRN Administration aPTT less than 55 seconds Heparin Sodium (Porcine) 3,500 units 07/17/24 08:49 07/20/24 11:27 Heparin Sodium 5,000 Units/Ml Vial IV PUSH 3,500 units PRN PRN Administration aPTT 55 - 70 seconds Heparin Sodium/Dextrose 25,000 units in 250 mls @ 22 mls/hr 07/17/24 09:15 07/20/24 14:11 Heparin Sodium/D5w 100 Units/Ml IV CONT 2,200 units/hr .[id number] [facility] 22 mls/hr Titration Protocol 2,200 UNITS/HR Cefepime HCl 1 gm in 50 mls @ 100 mls/hr 07/18/24 10:20 07/20/24 11:27 Maxipime 1 Gm/Ns 50 Ml IVPB Infused DAILY [facility] Infusion Albumin Human 50 mls @ 999 mls/hr 07/19/24 04:55 Albutein IVPB 08/18/24 04:54 Q10M PRN HYPOTENSION Lorazepam 0.5 mg 07/19/24 17:15 07/20/24 09:09 Lorazepam (*Crx) 0.5 Mg Tablet PO 0.5 mg Q6H PRN Administration Anxiety Methocarbamol 500 mg 07/16/24 08:06 07/20/24 15:33 Methocarbamol 500 Mg Tablet PO 500 mg TID PRN Administration muscle cramps Ondansetron HCl 4 mg 07/16/24 20:51 Ondansetron Inj 4 Mg/2 Ml Vial IV PUSH Q6H PRN Nausea And Vomiting Pantoprazole Sodium 40 mg 07/21/24 09:00 Pantoprazole 40 Mg Tablet PO QAM [facility] Sodium Zirconium Cyclosilicate 10 gm 07/16/24 13:07 07/16/24 13:11 Sodium Zirconium Cyclosilicate 10 Gm Powd.Pack PO 10 gm DAILY PRN Administration hyperkalemia Trazodone HCl 50 mg 07/17/24 21:28 07/19/24 20:15 Trazodone Hcl 50 Mg Tablet PO 50 mg HS PRN Administration Insomnia Vitamin D 4,000 units 07/16/24 09:00 07/20/24 07:42 Cholecalciferol 1,000 Units Tablet PO Not Given DAILY [facility] Radiology Results: ITS Impressions Chest X-Ray 07/16/24 08:36 Impression: Moderate bibasilar pulmonary edema/atelectasis with moderate bilateral pleural effusions. Support line, as above. Cardiomegaly, status post mitral valve replacement. Abdomen X-Ray 07/16/24 08:54 Impression: Pacemaker. Moderate bilateral pleural effusions. Nonspecific bowel gas pattern. Labs Labs: Laboratory Results - last 24 hr 07/16/24 07/19/24 07/19/24 00:13 20:55 20:59 WBC RBC Hgb Hct MCV MCH MCHC RDW Plt Count MPV Immature Gran % (Auto) Neut % (Auto) Lymph % (Auto) [place] % (Auto) Eos % (Auto) Baso % (Auto) Lymph # (Auto) [place] # (Auto) Eos # (Auto) Baso # (Auto) Abs Immat Gran (auto) Absolute Neuts (auto) Absolute Nucleated RBC Nucleated RBC % APTT 85.6 H Sodium Potassium Chloride Carbon Dioxide Anion Gap BUN Creatinine Estim Creat Clear Calc Estimated GFR Glucose POC Capillary Glucose 120 H Calcium Phosphorus Magnesium Total Bilirubin AST ALT Alkaline Phosphatase Total Protein Albumin Crossmatch See Detail 07/20/24 07/20/24 04:01 10:55 WBC 7.8 RBC 2.78 L Hgb 8.1 L Hct 26.5 L MCV 95.3 MCH 29.1 MCHC 30.6 L RDW 17.2 H Plt Count 208 MPV 10.3 Immature Gran % (Auto) 0.5 Neut % (Auto) 79.4 H Lymph % (Auto) 11.8 L [place] % (Auto) 7.0 Eos % (Auto) 0.9 Baso % (Auto) 0.4 Lymph # (Auto) 0.92 [place] # (Auto) 0.6 Eos # (Auto) 0.1 Baso # (Auto) 0.0 Abs Immat Gran (auto) 0.04 H Absolute Neuts (auto) 6.2 Absolute Nucleated RBC 0.000 Nucleated RBC % 0.0 APTT 76.0 H 62.6 H Sodium 138 Potassium 4.3 Chloride 96 L Carbon Dioxide 35 H Anion Gap 7 BUN 34 H D Creatinine 3.60 H Estim Creat Clear Calc 21 Estimated GFR 17 L Glucose 111 H POC Capillary Glucose Calcium 7.8 L Phosphorus 3.0 Magnesium 2.1 Total Bilirubin 0.6 AST 57 ALT 21 Alkaline Phosphatase 188 H Total Protein 7.0 Albumin 3.3 L Crossmatch
[2024-07-20 18:02] LABS: Partial Thromboplastin Time 86.1 Seconds (22.3-36.8)
--- NOTE | 2024-07-20 19:54 | ECG_ITS ---
Test Date: 2024-07-20 20:02:11 Measurements Intervals [place] Rate: 89 P: 154 [place]: 231 QRS: -17 QRSD: 153 T: 152 QT: 389 QTc: 475 Interpretive Statements ELECTRONIC ATRIAL PACEMAKER ELECTRONIC VENTRICULAR PACEMAKER NO FURTHER INTERPRETATION IS POSSIBLE ATYPICAL ECG Compared to ECG 07/18/2024 23:25:52 No significant changes Electronically Signed On 07-21-2024 06:36:18 [employer]ATION HELPER by Thony Rincon D.O.
[2024-07-20] MEDS: HEPARIN SOD/D5W 100 UNITS/ML 25,000 UNITS/250 ML BAG 22 UNITS IV CONT (22:33)
[2024-07-21] VITALS (32 sets, daily range): BP systolic 93–122; BP diastolic 47–71; PULSE 88–92; RESP 18–30; TEMP 36–37.1; O2SAT 95–100
[2024-07-21] MEDS: traZODone HCL 50 MG TABLET PO ×2 (00:07→21:25)
[2024-07-21] MEDS: BENZONATATE 100 MG CAPSULE PO ×3 (00:08→17:19)
[2024-07-21] MEDS: methocarbamoL 500 MG TABLET PO ×3 (00:08→17:19)
[2024-07-21 01:10] LABS: Partial Thromboplastin Time 100.1 Seconds (22.3-36.8)
[2024-07-21] MEDS: ACETAMINOPHEN 325 MG TABLET 650 MG PO ×2 (02:35→13:31)
[2024-07-21 07:09] LABS: Basophils Percent Auto 0.5 % (0.2-1.2); Eosinophils Absolute Auto 0.1 K/mm3 (0-0.3); Eosinophils Percent Auto 1.3 % (0-4.4); Hematocrit 24.2 % (42.0-52.0); Hemoglobin 7.4 g/dL (14.0-18.0); Immature Granulocyte Absolute 0.02 K/mm3 (0.00-0.031); Immature Granulocyte Percent A 0.3 % (0-0.5); Lymphocytes Absolute Auto 1.22 K/mm3 (0.9-3.2); Lymphocytes Percent Auto 19.1 % (18.3-44.2); Mean Corpuscular HGB Conc 30.6 g/dl (32-36); Mean Corpuscular Hemoglobin 29.4 pg (26-34); Mean Platelet Volume 9.8 fl (7.4-10.4); Monocytes Absolute Auto 0.6 K/mm3 (0.1-0.6); Monocytes Percent Auto 9.1 % (2.6-8.5); Neutrophils Absolute Auto 4.5 K/mm3 (1.3-6.7); Neutrophils Percent Auto 69.7 % (45.5-73.1); Platelet Count Result 159 k/mm3 (150-375); Red Blood Count 2.52 M/mm3 (4.6-6.20); White Blood Count 6.4 K/mm3 (4.5-10.0)
[2024-07-21 07:20] LABS: INR 1.3; Prothrombin Time 16.7 Seconds (11.1-14.7)
[2024-07-21 07:22] LABS: Partial Thromboplastin Time 93.6 Seconds (22.3-36.8)
[2024-07-21 07:36] LABS: Carbon Dioxide 31 mmol/L (22-30); Estimated CRCL calculation 18 ml/min; Estimated Glomerular Filt Rate 13
[2024-07-21 07:37] LABS: Anion Gap 9 mmol/L (4-12); Blood Urea Nitrogen 46 mg/dL (9-20); Calcium 7.8 mg/dL (8.4-10.2); Chloride 96 mmol/L (98-107); Glucose 117 mg/dL (65-110); Magnesium 2.1 mg/dL (1.6-2.3); Phosphorus 4.4 mg/dL (2.5-4.5); Potassium 4.7 mmol/L (3.4-5.0); Sodium 136 mmol/L (137-145)
[2024-07-21 07:47] LABS: CRP 20.2 mg/dL (<1.0)
[2024-07-21] MEDS: CHOLECALCIFEROL 1,000 UNITS TABLET 4000 UNITS PO (09:15)
[2024-07-21] MEDS: HEPARIN SOD/D5W 100 UNITS/ML 25,000 UNITS/250 ML BAG 22 UNITS IV CONT (09:16)
--- NOTE | 2024-07-21 09:50 | PM.PNNEP ---
Progress Note: A&P Assessment and Plan (1) Acute renal failure on dialysis: Code(s): N17.9 - Acute kidney failure, unspecified; Z99.2 - Dependence on renal dialysis Status: Acute Assessment and Plan: as noted by last hospitalization here at [facility] no evidence of renal recovery during hospitalization at [facility] (May 2024) etiology felt to be secondary to multifactorial ATN: hypotension/hemodynamic instability sepsis/infection (+ bacteremia/endocarditis) prerenal factors previous cardiac issues/NSTEMI appears to be dialysis dependent since April 2024 HD today and continue M/W/F schedule while hospitalized follow trend of repeat labs and UOP to assess for potential renal recovery however, since he had advanced CKD at baseline (and has been on dialysis previously), it is possible he maybe dialysis dependent (2) Chronic kidney disease, stage IV (severe): Code(s): N18.4 - Chronic kidney disease, stage 4 (severe) Status: Chronic Assessment and Plan: baseline creatinine had been running ~ 3.3 - 3.8mg/dl prior to April 2024 hospitalization felt to be secondary hypertension, vascular disease, previous obesity, COURTNEY, and left overs from his previous bouts of XOCHITL/ARF still has had issues with metabolic acidosis and hyperkalemia at baseline requiring ongoing medical management (3) Endocarditis: Code(s): I38 - Endocarditis, valve unspecified Status: Acute Assessment and Plan: VIGNESH on 07/20/24 with: complex mass measuring 1.45 x 1.09 cm attached mainly to the posterior leaflet of the mechanical valve several hypermobile serpiginous strands attached to the mass, the longest measures around 1.0 cm the post leaflet is not moving well mildly posteriorly directed mitral valve regurgitation. 0.65 x 0.70 cm echogenic density attached to the left coronary cusp, most likely a vegetation. small 0.45 x 0.31 cm echogenic density attached to the atrial side of the ant tricuspid leaflet most likely a vegetation awaiting transfer to [facility] for Cardiothoracic evaluation (4) Acute on chronic anemia: Code(s): D64.9 - Anemia, unspecified Status: Acute Assessment and Plan: as noted on admission with a Hgb of 5.7 chronic anemia at baseline however, noted to have melanotic stools and hemoccult positive warfarin on hold (on heparin gtt due to heart valves at this time) PRBC transfusion per protocol Gastroenterology following - s/p EGD (on 07/17) with findings noted: of Penaloza's esophagus, hiatal hernia, gastritis, reflux esophagitis and duodenitis no evidence of acute or recent bleeding coming from the stomach or duodenum complicated by XOCHITL and CKD Retacrit with HD follow trend of H/H (5) Bacteremia: Code(s): R78.81 - Bacteremia Status: Acute Assessment and Plan: blood cultures with Klebs aerogenes (Enterobacter) presumed source = endocardititis (see #3) at risk for seeding of his HD catheter and pacemaker on antibiotics repeat culture data noted (6) Congestive heart failure: Code(s): I50.9 - Heart failure, unspecified Status: Acute Assessment and Plan: as evidenced by admission CXR likely worsened by severe anemia on admission fluid removal/ultrafiltration with dialysis as tolerated follow respiratory status (7) Heart valve replaced: Code(s): Z95.2 - Presence of prosthetic heart valve Status: Acute Assessment and Plan: noted known 3 valve replacements careful anticoagulation in the context of anemia - on heparin gtt given likely need for future procedures Cardiology following as well Will continue to follow. 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 Tolerating hemodialysis treatment at the time of my visit (seen on HD at 9:40AM): resting comfortably when seen; underwent VIGNESH yesterday with results noted; still awaiting bed availability at [facility] for transfer; no other issues/events overnight or earlier this morning. Exam Narrative: General: WD/WN male in NAD Heart: normal S1 and S2; no rub Lungs: coarse and decreased at bases Abdomen: soft, nontender, nondistended, positive bowel sounds Extremities: no cyanosis or clubbing; no edema Skin: no rash Objective Data Vital Signs Vital Signs: Vital Signs Temp Pulse Resp BP Pulse Ox O2 Del Method O2 Flow Rate 07/21/24 09:45 91 101/62 07/21/24 09:22 97.9 F 91 19 118/59 L 98 07/21/24 09:22 2 07/21/24 09:31 90 105/65 07/21/24 09:05 97 Nasal Cannula 3 07/21/24 07:26 96.8 F L 90 22 H 97/60 L 97 07/21/24 06:00 90 11/22/24 04:00 98.8 F 88 20 108/55 L 97 07/21/24 04:00 89 07/21/24 04:00 97 Nasal Cannula 3 07/21/24 02:00 89 07/21/24 00:00 98.7 F 90 30 H 122/59 L 99 07/21/24 00:00 90 07/21/24 00:00 99 Nasal Cannula 3 07/20/24 22:00 91 07/20/24 20:00 89 07/20/24 20:00 99 Nasal Cannula 2 07/20/24 20:21 88 26 H 120/56 L 99 07/20/24 18:48 97.6 F 93 18 109/50 L 99 07/20/24 18:00 93 07/20/24 17:40 92 112/58 L 96 07/20/24 16:00 89 07/20/24 16:00 92 16 100 Nasal Cannula 2 07/20/24 17:01 92 07/20/24 16:00 97.8 F 90 16 118/64 100 07/20/24 13:30 90 19 105/66 99 Nasal Cannula 4 07/20/24 14:00 90 14 114/77 98 Nasal Cannula 2 07/20/24 13:45 90 28 H 110/62 97 Nasal Cannula 2 07/20/24 12:00 99 07/20/24 12:00 88 18 99 Room Air 07/20/24 11:57 Nasal Cannula 2 07/20/24 11:32 98 F 88 18 109/56 L 99 Intake/Output Intake/Output: Intake & Output 07/18/24 07/19/24 07/20/24 07/21/24 23:59 23:59 23:59 23:59 Intake Total 936 1714.4 1681.3 955.7 Output Total 75 2001 100 200 Balance 861 -286.6 1581.3 755.7 Meds/Results Medications: Active Medications Generic Name Dose Route Start Last Admin Trade Name Freq PRN Reason Stop Dose Admin Acetaminophen 650 mg 07/17/24 10:05 07/21/24 02:35 Acetaminophen 325 Mg Tablet PO 650 mg Q4H PRN Administration Mild Pain (1-3) or Fever Benzonatate 100 mg 07/16/24 12:58 07/21/24 09:14 Benzonatate 100 Mg Capsule PO 100 mg TID PRN Administration Cough Carvedilol 3.125 mg 07/16/24 18:00 07/20/24 17:01 Carvedilol 3.125 Mg Tablet PO 3.125 mg QPM [facility] Administration Epoetin Parish-epbx 10,000 units 07/17/24 09:00 07/19/24 09:58 Epoetin Parish-Epbx 10,000 Units/Ml Vial IV PUSH 10,000 units MOWEFR@09 ALLY Administration Heparin Sodium (Porcine) 6,500 units 07/17/24 08:49 07/19/24 14:41 Heparin Sodium 5,000 Units/Ml Vial IV PUSH 6,500 units PRN PRN Administration aPTT less than 55 seconds Heparin Sodium (Porcine) 3,500 units 07/17/24 08:49 07/20/24 11:27 Heparin Sodium 5,000 Units/Ml Vial IV PUSH 3,500 units PRN PRN Administration aPTT 55 - 70 seconds Heparin Sodium/Dextrose 25,000 units in 250 mls @ 22 mls/hr 07/17/24 09:15 07/21/24 09:16 Heparin Sodium/D5w 100 Units/Ml IV CONT 2,200 units/hr .[id number] [facility] 22 mls/hr Administration Protocol 2,200 UNITS/HR Cefepime HCl 1 gm in 50 mls @ 100 mls/hr 07/18/24 10:20 07/20/24 11:27 Maxipime 1 Gm/Ns 50 Ml IVPB Infused DAILY [facility] Infusion Albumin Human 50 mls @ 999 mls/hr 07/19/24 04:55 Albutein IVPB 08/18/24 04:54 Q10M PRN HYPOTENSION Lorazepam 0.5 mg 07/19/24 17:15 07/20/24 20:22 Lorazepam (*Crx) 0.5 Mg Tablet PO 0.5 mg Q6H PRN Administration Anxiety Methocarbamol 500 mg 07/16/24 08:06 07/21/24 09:14 Methocarbamol 500 Mg Tablet PO 500 mg TID PRN Administration muscle cramps Ondansetron HCl 4 mg 07/16/24 20:51 Ondansetron Inj 4 Mg/2 Ml Vial IV PUSH Q6H PRN Nausea And Vomiting Pantoprazole Sodium 40 mg 07/21/24 09:00 Pantoprazole 40 Mg Tablet PO QAM [facility] Sodium Zirconium Cyclosilicate 10 gm 07/16/24 13:07 07/16/24 13:11 Sodium Zirconium Cyclosilicate 10 Gm Powd.Pack PO 10 gm DAILY PRN Administration hyperkalemia Trazodone HCl 50 mg 07/17/24 21:28 07/21/24 00:07 Trazodone Hcl 50 Mg Tablet PO 50 mg HS PRN Administration Insomnia Vitamin D 4,000 units 07/16/24 09:00 07/21/24 09:15 Cholecalciferol 1,000 Units Tablet PO 4,000 units DAILY ALLY Administration Radiology Results: ITS Impressions Chest X-Ray 07/16/24 08:36 Impression: Moderate bibasilar pulmonary edema/atelectasis with moderate bilateral pleural effusions. Support line, as above. Cardiomegaly, status post mitral valve replacement. Abdomen X-Ray 07/16/24 08:54 Impression: Pacemaker. Moderate bilateral pleural effusions. Nonspecific bowel gas pattern. Labs Labs: Laboratory Tests 07/21/24 06:51 07/21/24 06:51 Calcium 7.8 L Phosphorus 4.4 Magnesium 2.1 C-Reactive Protein 20.2 H Albumin 3.0 L Microbiology 07/19/24 09:20 Blood Blood Culture - Preliminary 07/19/24 09:22 Blood Blood Culture - Preliminary 07/16/24 05:32 Blood Blood Culture - Preliminary Klebs aerogenes (Enterobacter)
[2024-07-21] MEDS: EPOETIN ALFA-EPBX 10,000 UNITS/ML VIAL 10000 UNITS IV PUSH (11:13)
--- NOTE | 2024-07-21 11:40 | PCHDNOTE ---
Dialysis Progress Note: Primary RN was contacted about pt complaint of not being able to catch his breath. Pt had inspiratory wheezing upon arrival. Pt came to treatment room on 2LNC. Pt O2Sat is 96%.
--- NOTE | 2024-07-21 11:50 | PC.NURSE ---
0920-pt to dialysis via bed accompanied by staff
--- NOTE | 2024-07-21 13:29 | PC.NURSE ---
Returned to room - post dialysis treatment
[2024-07-21] MEDS: PANTOPRAZOLE 40 MG TABLET PO (13:31)
[2024-07-21] MEDS: CEFEPIME 1 GM/NS 50 ML 1 GM/50 ML BAG IVPB (13:32)
[2024-07-21 13:47] LABS: Partial Thromboplastin Time 158.6 Seconds (22.3-36.8)
--- NOTE | 2024-07-21 14:52 | PM.IMPN ---
Progress Note: A&P Assessment and Plan (1) Acute on chronic anemia: Code(s): D64.9 - Anemia, unspecified Status: Acute Assessment and Plan: Patient presented with chest pain, SOB and GNW. He was recently discharged from [place] after his valve surgery about a week ago. He has been on anticoagulation with warfarin. Vitals were stable on ED evaluation. Hemoglobin of 5.7. His discharge hemoglobin was 7.7. He reported dark stool and FOBT was positive. Warfarin held. He received total of 2U PRBCs. GI consulted. PPI started. EGD 07/17 showing Penaloza's esophagus, hiatal hernia, gastritis, reflux esophagitis and duodenitis. Please see report for details. There was no evidence of acute or recent bleeding coming from the stomach or duodenum to explain low Hgb. Hgb stable in the 7-8 range. Warfarin remains on hold. Heparin drip restarted after his EGD as per recommended by gas turbine powerplant mechanic helper. Follow. Transfuse p.r.n. to keep hemoglobin more than 7. (2) Bacteremia: Code(s): R78.81 - Bacteremia Status: Acute Assessment and Plan: Patient was here in April and found to bacteremia with Enterobacter and endocarditis. He was transferred to [place] and underwent valve surgery. BCx drawn this admission again again show Enterobacter sensitive to Cefepime. Several sources present with dialysis catheter, dental disease, pacemaker as well as recent valve replacement. He was started on cefepime Repeat BCx NGTD. VIGNESH showing vegetation on the aortic, mitral and tricuspid valve Patient has been accepted by [facility] for transfer. Air Conditioning Mechanic himself called and spoke with surgeon about this case (3) Endocarditis: Code(s): I38 - Endocarditis, valve unspecified Status: Acute Assessment and Plan: Patient had VIGNESH today showing: - A complex mass measuring 1.45 x 1.09 cm attached mainly to the posterior leaflet of the mechanical mitral valve. - There are several hypermobile serpiginous strands attached to the mass, the longest measures around 1.0 cm. - The post leaflet is not moving well. - There is mild posteriorly directed mitral valve regurgitation. - There is a 0.65 x 0.70 cm echogenic density attached to the left coronary cusp of aortic valve, most likely a vegetation. - There is a small 0.45 x 0.31 cm echogenic density attached to the atrial side of the ant tricuspid leaflet most likely a vegetation Spoke with [facility] again in hopes of expediting his transfer. (4) Presence of other heart-valve replacement: Code(s): Z95.4 - Presence of other heart-valve replacement Status: Acute Assessment and Plan: In April, VIGNESH showed aortic valve is a bicuspid aortic valve with SUTART 1.0-1.2 cm2, consistent with moderate stenosis. VIGNESH also showing vegetation posterior mitral valve. Patient was sent to [place]. Patient now has mechanical valves with a 25mm On-X AVR with root repair using bovine pericardial patch, 31mm [place] MVR with annular repair and TVr with 28mm annuloplasty ring. Cardiology consulted. Goal INR should be 3-3.5 given fresh mechanical valves Continue heparin infusion for now (5) Melanotic stools: Code(s): K92.1 - Melena Status: Acute Assessment and Plan: Possibly a lower SB bleed, possibly AVM. HH stable Monitor HH and transfuse as needed. (6) Elevated troponin: Code(s): R79.89 - Other specified abnormal findings of blood chemistry Status: Acute Assessment and Plan: His troponin was elevated but remained flat. He was having CP and SOB prior to admission. Likely due to demand ischemia from anemia. Cardiology consulted. Contiue heparin bridging due to mechanical valve (7) End-stage renal disease on hemodialysis: Code(s): N18.6 - End stage renal disease; Z99.2 - Dependence on renal dialysis Status: Acute Assessment and Plan: ESRD on hemodialysis recently started from April 2024 On HD Wednesday. Nephrology consulted and appreciate their input (8) Chest pain: Qualifiers: Chest pain type: unspecified Qualified Code(s): R07.9 - Chest pain, unspecified Code(s): R07.9 - Chest pain, unspecified Status: Acute Assessment and Plan: As above (9) Aortic valve replaced: Code(s): Z95.2 - Presence of prosthetic heart valve Status: Acute Assessment and Plan: As above Plan DVT prophylaxis Heparin Code status full code Subjective Date/time seen: 07/21/24 14:52 Interval history: 59yo male with COURTNEY, HTN, CKD, CHF and recent valvular surgery due to endocarditis who presented to the ER from home due to acute onset of shortness of breath and tachycardia. Up to the chair. Eating well. Feels well today. Exam Narrative: AF 98.6 114/71 91 20 100% ra Gen - NARD Chest - clear anteriorly. HD catheter in the right upper chest CV - RRR S1/S2 with mechanical heart sounds. Tele showing mostly paced rhythm. Abd - Soft, NT/ND, Positive BS Ext - trace bilateral pedal edema. Psych - Nml mood and affect Skin - Warm and dry Objective Data Vital Signs Vital Signs: Vital Signs - 24 hr 07/20/24 16:00 07/20/24 17:01 07/20/24 16:00 Temperature 97.8 F Pulse Rate 90 92 92 Respiratory Rate 16 16 Blood Pressure 118/64 Pulse Oximetry 100 100 Oxygen Delivery Nasal Cannula Oxygen Flow Rate 2 07/20/24 16:00 07/20/24 17:40 07/20/24 18:00 Temperature Pulse Rate 89 92 93 Respiratory Rate Blood Pressure 112/58 L Pulse Oximetry 96 Oxygen Delivery Oxygen Flow Rate 07/20/24 18:48 07/20/24 20:21 07/20/24 20:00 Temperature 97.6 F Pulse Rate 93 88 Respiratory Rate 18 26 H Blood Pressure 109/50 L 120/56 L Pulse Oximetry 99 99 99 Oxygen Delivery Nasal Cannula Oxygen Flow Rate 2 07/20/24 20:00 07/20/24 22:00 07/21/24 00:00 Temperature Pulse Rate 89 91 Respiratory Rate Blood Pressure Pulse Oximetry 99 Oxygen Delivery Nasal Cannula Oxygen Flow Rate 3 07/21/24 00:00 07/21/24 00:00 07/21/24 02:00 Temperature 98.7 F Pulse Rate 90 90 89 Respiratory Rate 30 H Blood Pressure 122/59 L Pulse Oximetry 99 Oxygen Delivery Oxygen Flow Rate 07/21/24 04:00 07/21/24 04:00 07/21/24 04:00 Temperature 98.8 F Pulse Rate 89 88 Respiratory Rate 20 Blood Pressure 108/55 L Pulse Oximetry 97 97 Oxygen Delivery Nasal Cannula Oxygen Flow Rate 3 07/21/24 06:00 07/21/24 07:26 07/21/24 09:05 Temperature 96.8 F L Pulse Rate 90 90 Respiratory Rate 22 H Blood Pressure 97/60 L Pulse Oximetry 97 97 Oxygen Delivery Nasal Cannula Oxygen Flow Rate 3 07/21/24 09:31 07/21/24 09:22 07/21/24 09:22 Temperature 97.9 F Pulse Rate 90 91 Respiratory Rate 19 Blood Pressure 105/65 118/59 L Pulse Oximetry 98 Oxygen Delivery Oxygen Flow Rate 2 07/21/24 10:15 07/21/24 09:45 07/21/24 10:00 Temperature Pulse Rate 91 91 91 Respiratory Rate Blood Pressure 97/61 L 101/62 99/63 L Pulse Oximetry Oxygen Delivery Oxygen Flow Rate 07/21/24 10:30 07/21/24 10:45 07/21/24 11:00 Temperature Pulse Rate 90 90 90 Respiratory Rate Blood Pressure 98/62 L 99/62 L 103/63 Pulse Oximetry Oxygen Delivery Oxygen Flow Rate 07/21/24 11:15 07/21/24 08:30 07/21/24 10:00 Temperature Pulse Rate 88 89 89 Respiratory Rate Blood Pressure 93/56 L Pulse Oximetry Oxygen Delivery Oxygen Flow Rate 07/21/24 11:30 07/21/24 11:45 07/21/24 12:00 Temperature Pulse Rate 90 91 91 Respiratory Rate Blood Pressure 103/63 109/68 110/66 Pulse Oximetry Oxygen Delivery Oxygen Flow Rate 07/21/24 12:15 07/21/24 12:30 07/21/24 13:16 Temperature 98.6 F Pulse Rate 90 90 91 Respiratory Rate 20 Blood Pressure 102/66 107/68 114/71 Pulse Oximetry 100 Oxygen Delivery Oxygen Flow Rate 07/21/24 12:45 07/21/24 13:00 07/21/24 13:05 Temperature Pulse Rate 89 91 89 Respiratory Rate Blood Pressure 106/66 109/70 116/70 Pulse Oximetry Oxygen Delivery Oxygen Flow Rate Intake/Output Intake/Output: Intake & Output 07/18/24 07/19/24 07/20/24 07/21/24 23:59 23:59 23:59 23:59 Intake Total 936 1714.4 1681.3 1195.7 Output Total 75 2001 100 2198 Balance 861 -286.6 1581.3 -1002.3 Meds/Results Medications: Active Medications Generic Name Dose Route Start Last Admin Trade Name Freq PRN Reason Stop Dose Admin Acetaminophen 650 mg 07/17/24 10:05 07/21/24 13:31 Acetaminophen 325 Mg Tablet PO 650 mg Q4H PRN Administration Mild Pain (1-3) or Fever Benzonatate 100 mg 07/16/24 12:58 07/21/24 09:14 Benzonatate 100 Mg Capsule PO 100 mg TID PRN Administration Cough Carvedilol 3.125 mg 07/16/24 18:00 07/20/24 17:01 Carvedilol 3.125 Mg Tablet PO 3.125 mg QPM ALLY Administration Epoetin Parish-epbx 10,000 units 07/17/24 09:00 07/21/24 11:13 Epoetin Parish-Epbx 10,000 Units/Ml Vial IV PUSH 10,000 units MOWEFR@09 ALLY Administration Heparin Sodium (Porcine) 6,500 units 07/17/24 08:49 07/19/24 14:41 Heparin Sodium 5,000 Units/Ml Vial IV PUSH 6,500 units PRN PRN Administration aPTT less than 55 seconds Heparin Sodium (Porcine) 3,500 units 07/17/24 08:49 07/20/24 11:27 Heparin Sodium 5,000 Units/Ml Vial IV PUSH 3,500 units PRN PRN Administration aPTT 55 - 70 seconds Heparin Sodium/Dextrose 25,000 units in 250 mls @ 22 mls/hr 07/17/24 09:15 07/21/24 11:30 Heparin Sodium/D5w 100 Units/Ml IV CONT Not Given .[id number] [facility] Protocol 2,200 UNITS/HR Cefepime HCl 1 gm in 50 mls @ 100 mls/hr 07/18/24 10:20 07/21/24 13:32 Maxipime 1 Gm/Ns 50 Ml IVPB 100 mls/hr DAILY [facility] Administration Albumin Human 50 mls @ 999 mls/hr 07/19/24 04:55 Albutein IVPB 08/18/24 04:54 Q10M PRN HYPOTENSION Lorazepam 0.5 mg 07/19/24 17:15 07/20/24 20:22 Lorazepam (*Crx) 0.5 Mg Tablet PO 0.5 mg Q6H PRN Administration Anxiety Methocarbamol 500 mg 07/16/24 08:06 07/21/24 09:14 Methocarbamol 500 Mg Tablet PO 500 mg TID PRN Administration muscle cramps Ondansetron HCl 4 mg 07/16/24 20:51 Ondansetron Inj 4 Mg/2 Ml Vial IV PUSH Q6H PRN Nausea And Vomiting Pantoprazole Sodium 40 mg 07/21/24 09:00 07/21/24 13:31 Pantoprazole 40 Mg Tablet PO 40 mg QAM ALLY Administration Sodium Zirconium Cyclosilicate 10 gm 07/16/24 13:07 07/16/24 13:11 Sodium Zirconium Cyclosilicate 10 Gm Powd.Pack PO 10 gm DAILY PRN Administration hyperkalemia Trazodone HCl 50 mg 07/17/24 21:28 07/21/24 00:07 Trazodone Hcl 50 Mg Tablet PO 50 mg HS PRN Administration Insomnia Vitamin D 4,000 units 07/16/24 09:00 07/21/24 09:15 Cholecalciferol 1,000 Units Tablet PO 4,000 units DAILY ALLY Administration Radiology Results: ITS Impressions Chest X-Ray 07/16/24 08:36 Impression: Moderate bibasilar pulmonary edema/atelectasis with moderate bilateral pleural effusions. Support line, as above. Cardiomegaly, status post mitral valve replacement. Abdomen X-Ray 07/16/24 08:54 Impression: Pacemaker. Moderate bilateral pleural effusions. Nonspecific bowel gas pattern. Labs Labs: Laboratory Results - last 24 hr 07/20/24 07/21/24 07/21/24 17:20 00:36 06:51 WBC 6.4 RBC 2.52 L Hgb 7.4 L Hct 24.2 L MCV 96.0 MCH 29.4 MCHC 30.6 L RDW 17.0 H Plt Count 159 MPV 9.8 Immature Gran % (Auto) 0.3 Neut % (Auto) 69.7 Lymph % (Auto) 19.1 Delta % (Auto) 9.1 H Eos % (Auto) 1.3 Baso % (Auto) 0.5 Lymph # (Auto) 1.22 Delta # (Auto) 0.6 Eos # (Auto) 0.1 Baso # (Auto) 0.0 Abs Immat Gran (auto) 0.02 Absolute Neuts (auto) 4.5 Absolute Nucleated RBC 0.000 Nucleated RBC % 0.0 PT 16.7 H D INR 1.3 APTT 86.1 H 100.1 H 93.6 H Sodium 136 L Potassium 4.7 Chloride 96 L Carbon Dioxide 31 H Anion Gap 9 BUN 46 H D Creatinine 4.70 H Estim Creat Clear Calc 18 Estimated GFR 13 L Glucose 117 H Calcium 7.8 L Phosphorus 4.4 Magnesium 2.1 C-Reactive Protein 20.2 H Albumin 3.0 L 07/21/24 12:47 WBC RBC Hgb Hct MCV MCH MCHC RDW Plt Count MPV Immature Gran % (Auto) Neut % (Auto) Lymph % (Auto) Delta % (Auto) Eos % (Auto) Baso % (Auto) Lymph # (Auto) Delta # (Auto) Eos # (Auto) Baso # (Auto) Abs Immat Gran (auto) Absolute Neuts (auto) Absolute Nucleated RBC Nucleated RBC % PT INR APTT 158.6 H Sodium Potassium Chloride Carbon Dioxide Anion Gap BUN Creatinine Estim Creat Clear Calc Estimated GFR Glucose Calcium Phosphorus Magnesium C-Reactive Protein Albumin
--- NOTE | 2024-07-21 15:45 | PCPTNOTE ---
pt refused PT fallon, states he has 9.5/10 pain in his head and upper back and can't do therapy, will follow
[2024-07-21] MEDS: carvediloL 3.125 MG TABLET PO (17:19)
[2024-07-21] MEDS: LORazepam (*CRX) 0.5 MG TABLET PO (19:41)
[2024-07-21] MEDS: HEPARIN SOD/D5W 100 UNITS/ML 25,000 UNITS/250 ML BAG 20 UNITS IV CONT (23:57)
[2024-07-22] VITALS (18 sets, daily range): BP systolic 105–117; BP diastolic 48–58; PULSE 89–90; RESP 18–24; TEMP 36.3–36.8; O2SAT 93–98
[2024-07-22 02:40] LABS: Basophils Percent Auto 0.5 % (0.2-1.2); Eosinophils Absolute Auto 0.1 K/mm3 (0-0.3); Eosinophils Percent Auto 0.9 % (0-4.4); Hematocrit 26.9 % (42.0-52.0); Hemoglobin 7.9 g/dL (14.0-18.0); Immature Granulocyte Absolute 0.04 K/mm3 (0.00-0.031); Immature Granulocyte Percent A 0.5 % (0-0.5); Lymphocytes Absolute Auto 1.19 K/mm3 (0.9-3.2); Lymphocytes Percent Auto 14.5 % (18.3-44.2); Mean Corpuscular HGB Conc 29.4 g/dl (32-36); Mean Corpuscular Hemoglobin 28.8 pg (26-34); Mean Corpuscular Volume 98.2 fl (80-100); Mean Platelet Volume 9.9 fl (7.4-10.4); Monocytes Absolute Auto 0.6 K/mm3 (0.1-0.6); Neutrophils Absolute Auto 6.3 K/mm3 (1.3-6.7); Neutrophils Percent Auto 76.6 % (45.5-73.1); Platelet Count Result 173 k/mm3 (150-375); Red Blood Count 2.74 M/mm3 (4.6-6.20); Red Cell Distribution Width 17.2 % (11.5-14.5); White Blood Count 8.2 K/mm3 (4.5-10.0)
[2024-07-22] MEDS: BENZONATATE 100 MG CAPSULE PO ×3 (02:45→14:33)
[2024-07-22] MEDS: ACETAMINOPHEN 325 MG TABLET 650 MG PO ×2 (02:45→08:18)
[2024-07-22] MEDS: methocarbamoL 500 MG TABLET PO ×3 (02:46→17:51)
[2024-07-22 02:54] LABS: Anion Gap 9 mmol/L (4-12); Blood Urea Nitrogen 30 mg/dL (9-20); Calcium 8.6 mg/dL (8.4-10.2); Carbon Dioxide 29 mmol/L (22-30); Chloride 101 mmol/L (98-107); Estimated CRCL calculation 25 ml/min; Estimated Glomerular Filt Rate 19; Glucose 115 mg/dL (65-110); Partial Thromboplastin Time 90.5 Seconds (22.3-36.8); Potassium 4.8 mmol/L (3.4-5.0); Sodium 139 mmol/L (137-145)
[2024-07-22 03:02] LABS: Anisocytosis 1+; Platelet Estimate Adequate (Adequate); Schistocytes Rare
[2024-07-22 03:03] LABS: Poikilocytosis 1+
[2024-07-22] MEDS: CHOLECALCIFEROL 1,000 UNITS TABLET 4000 UNITS PO (08:17)
[2024-07-22] MEDS: PANTOPRAZOLE 40 MG TABLET PO (08:18)
[2024-07-22] MEDS: CEFEPIME 1 GM/NS 50 ML 1 GM/50 ML BAG IVPB (08:20)
--- NOTE | 2024-07-22 10:58 | PM.IMPN ---
Progress Note: A&P Assessment and Plan (1) Acute on chronic anemia: Code(s): D64.9 - Anemia, unspecified Status: Acute Assessment and Plan: Patient presented with chest pain, SOB and GNW. He was recently discharged from [facility] after his valve surgery about a week ago. He has been on anticoagulation with warfarin. Vitals were stable on ED evaluation. Hemoglobin of 5.7. His recent discharge hemoglobin was 7.7. He reported dark stool and FOBT was positive. Warfarin held. He received total of 2U PRBCs. GI consulted. PPI started. EGD 07/17 showing Penaloza's esophagus, hiatal hernia, gastritis, reflux esophagitis and duodenitis. Please see report for details. There was no evidence of acute or recent bleeding coming from the stomach or duodenum to explain low Hgb. Hgb stable in the 7-8 range. Warfarin remains on hold. Heparin drip restarted after his EGD as per recommended by automobile and property underwriter. Follow. Transfuse p.r.n. to keep hemoglobin more than 7. (2) Bacteremia: Code(s): R78.81 - Bacteremia Status: Acute Assessment and Plan: Patient was here in April and found to bacteremia with Enterobacter and endocarditis. He was transferred to [facility] and underwent valve surgery. BCx drawn this admission again again show Enterobacter sensitive to Cefepime. Several sources present with dialysis catheter, dental disease, pacemaker as well as recent valve replacement. He was started on cefepime Repeat BCx NGTD. VIGNESH showing vegetation on the aortic, mitral and tricuspid valve. Please see report for details. Patient has been accepted by [facility] for transfer. Chemistry Professor himself called and spoke with surgeon about this case (3) Endocarditis: Code(s): I38 - Endocarditis, valve unspecified Status: Acute Assessment and Plan: Patient had VIGNESH today showing: - A complex mass measuring 1.45 x 1.09 cm attached mainly to the posterior leaflet of the mechanical mitral valve. - There are several hypermobile serpiginous strands attached to the mass, the longest measures around 1.0 cm. - The post leaflet is not moving well. - There is mild posteriorly directed mitral valve regurgitation. - There is a 0.65 x 0.70 cm echogenic density attached to the left coronary cusp of aortic valve, most likely a vegetation. - There is a small 0.45 x 0.31 cm echogenic density attached to the atrial side of the ant tricuspid leaflet most likely a vegetation Spoke with [facility] again in hopes of expediting his transfer. (4) Presence of other heart-valve replacement: Code(s): Z95.4 - Presence of other heart-valve replacement Status: Acute Assessment and Plan: In April, VIGNESH showed aortic valve is a bicuspid aortic valve with STUART 1.0-1.2 cm2, consistent with moderate stenosis. VIGNESH also showing vegetation posterior mitral valve. Patient was sent to [facility]. Patient now has mechanical valves with a 25mm On-X AVR with root repair using bovine pericardial patch, 31mm [place] MVR with annular repair and TVr with 28mm annuloplasty ring. Cardiology consulted. Goal INR should be 3-3.5 given fresh mechanical valves Continue heparin infusion for now (5) Melanotic stools: Code(s): K92.1 - Melena Status: Acute Assessment and Plan: Possibly a lower SB bleed, possibly AVM. HH stable Monitor HH and transfuse as needed. (6) Elevated troponin: Code(s): R79.89 - Other specified abnormal findings of blood chemistry Status: Acute Assessment and Plan: His troponin was elevated but remained flat. He was having CP and SOB prior to admission. Likely due to demand ischemia from anemia. Cardiology consulted. Continue heparin bridging due to mechanical valve. (7) End-stage renal disease on hemodialysis: Code(s): N18.6 - End stage renal disease; Z99.2 - Dependence on renal dialysis Status: Acute Assessment and Plan: ESRD on hemodialysis recently started from April 2024 On HD Wednesday. Nephrology consulted and appreciate their input (8) Chest pain: Qualifiers: Chest pain type: unspecified Qualified Code(s): R07.9 - Chest pain, unspecified Code(s): R07.9 - Chest pain, unspecified Status: Acute Assessment and Plan: As above (9) Aortic valve replaced: Code(s): Z95.2 - Presence of prosthetic heart valve Status: Acute Assessment and Plan: As above Plan DVT prophylaxis Heparin Code status full code Subjective Date/time seen: 07/22/24 10:58 Interval history: 59yo male with COURTNEY, HTN, CKD, CHF and recent valvular surgery due to endocarditis who presented to the ER from home due to acute onset of shortness of breath and tachycardia. Slept well last night. Does not wear O2 at home. SLight lightheadedness with walking. No CP. No n/v. Exam Narrative: AF 97.4 107/54 89 20 94% 2L Gen - NARD Chest - distant, clear BS. HD catheter in the right upper chest CV - RRR S1/S2 with mechanical heart sounds. Tele showing mostly paced rhythm. Abd - Soft, NT/ND, Positive BS Ext - trace bilateral pedal edema. Psych - Nml mood and affect Skin - Warm and dry Objective Data Vital Signs Vital Signs: Vital Signs - 24 hr 07/21/24 11:00 07/21/24 11:15 07/21/24 11:30 Temperature Pulse Rate 90 88 90 Respiratory Rate Blood Pressure 103/63 93/56 L 103/63 Pulse Oximetry Oxygen Delivery Oxygen Flow Rate 07/21/24 11:45 07/21/24 12:00 07/21/24 12:15 Temperature Pulse Rate 91 91 90 Respiratory Rate Blood Pressure 109/68 110/66 102/66 Pulse Oximetry Oxygen Delivery Oxygen Flow Rate 07/21/24 12:30 07/21/24 13:16 07/21/24 12:45 Temperature 98.6 F Pulse Rate 90 91 89 Respiratory Rate 20 Blood Pressure 107/68 114/71 106/66 Pulse Oximetry 100 Oxygen Delivery Oxygen Flow Rate 07/21/24 13:00 07/21/24 13:05 07/21/24 14:00 Temperature Pulse Rate 91 89 89 Respiratory Rate Blood Pressure 109/70 116/70 Pulse Oximetry Oxygen Delivery Oxygen Flow Rate 07/21/24 16:00 07/21/24 16:00 07/21/24 16:00 Temperature 98 F Pulse Rate 89 89 90 Respiratory Rate 20 18 Blood Pressure 96/47 L Pulse Oximetry 100 95 Oxygen Delivery Room Air Oxygen Flow Rate 07/21/24 17:19 07/21/24 18:30 07/21/24 20:00 Temperature 97.8 F Pulse Rate 92 89 Respiratory Rate 24 H Blood Pressure 106/52 L Pulse Oximetry 97 97 Oxygen Delivery Nasal Cannula Oxygen Flow Rate 2 07/21/24 20:00 07/21/24 23:39 07/22/24 04:29 Temperature 97.6 F 97.5 F L Pulse Rate 89 89 90 Respiratory Rate 22 H 20 Blood Pressure 110/54 L 105/48 L Pulse Oximetry 97 97 Oxygen Delivery Oxygen Flow Rate 07/22/24 00:00 07/22/24 04:00 07/21/24 22:00 Temperature Pulse Rate 89 Respiratory Rate Blood Pressure Pulse Oximetry 97 97 Oxygen Delivery Nasal Cannula Nasal Cannula Oxygen Flow Rate 2 2 07/22/24 00:00 07/22/24 02:00 07/22/24 04:00 Temperature Pulse Rate 89 89 90 Respiratory Rate Blood Pressure Pulse Oximetry Oxygen Delivery Oxygen Flow Rate 07/22/24 06:00 07/22/24 08:20 07/22/24 08:00 Temperature 97.4 F L Pulse Rate 89 89 Respiratory Rate 22 H Blood Pressure 107/54 L Pulse Oximetry 93 Oxygen Delivery Room Air Oxygen Flow Rate 07/22/24 08:23 07/22/24 08:23 Temperature Pulse Rate 89 89 Respiratory Rate 20 Blood Pressure Pulse Oximetry 94 Oxygen Delivery Nasal Cannula Oxygen Flow Rate 2 Intake/Output Intake/Output: Intake & Output 07/19/24 07/20/24 07/21/24 07/22/24 23:59 23:59 23:59 23:59 Intake Total 1714.4 1681.3 2330.7 967.7 Output Total 2000 100 2198 750 Balance -286.6 1581.3 132.7 217.7 Meds/Results Medications: Active Medications Generic Name Dose Route Start Last Admin Trade Name Omariq PRN Reason Stop Dose Admin Acetaminophen 650 mg 07/17/24 10:05 07/22/24 08:18 Acetaminophen 325 Mg Tablet PO 650 mg Q4H PRN Administration Mild Pain (1-3) or Fever Benzonatate 100 mg 07/16/24 12:58 07/22/24 08:18 Benzonatate 100 Mg Capsule PO 100 mg TID PRN Administration Cough Carvedilol 3.125 mg 07/16/24 18:00 07/21/24 17:19 Carvedilol 3.125 Mg Tablet PO 3.125 mg QPM [facility] Administration Epoetin Parish-epbx 10,000 units 07/17/24 09:00 07/21/24 11:13 Epoetin Parish-Epbx 10,000 Units/Ml Vial IV PUSH 10,000 units MOWEFR@09 [facility] Administration Heparin Sodium (Porcine) 6,500 units 07/17/24 08:49 07/19/24 14:41 Heparin Sodium 5,000 Units/Ml Vial IV PUSH 6,500 units PRN PRN Administration aPTT less than 55 seconds Heparin Sodium (Porcine) 3,500 units 07/17/24 08:49 07/20/24 11:27 Heparin Sodium 5,000 Units/Ml Vial IV PUSH 3,500 units PRN PRN Administration aPTT 55 - 70 seconds Heparin Sodium/Dextrose 25,000 units in 250 mls @ 20 mls/hr 07/17/24 09:15 07/22/24 03:50 Heparin Sodium/D5w 100 Units/Ml IV CONT 2,000 units/hr .[id number] [facility]Y 20 mls/hr Titration Protocol 2,000 UNITS/HR Cefepime HCl 1 gm in 50 mls @ 100 mls/hr 07/18/24 10:20 07/22/24 09:00 Maxipime 1 Gm/Ns 50 Ml IVPB Infused DAILY [facility] Infusion Albumin Human 50 mls @ 999 mls/hr 07/19/24 04:55 Albutein IVPB 08/18/24 04:54 Q10M PRN HYPOTENSION Lorazepam 0.5 mg 07/19/24 17:15 07/21/24 19:41 Lorazepam (*Crx) 0.5 Mg Tablet PO 0.5 mg Q6H PRN Administration Anxiety Methocarbamol 500 mg 07/16/24 08:06 07/22/24 08:18 Methocarbamol 500 Mg Tablet PO 500 mg TID PRN Administration muscle cramps Ondansetron HCl 4 mg 07/16/24 20:51 Ondansetron Inj 4 Mg/2 Ml Vial IV PUSH Q6H PRN Nausea And Vomiting Pantoprazole Sodium 40 mg 07/21/24 09:00 07/22/24 08:18 Pantoprazole 40 Mg Tablet PO 40 mg QAM [facility] Administration Sodium Zirconium Cyclosilicate 10 gm 07/16/24 13:07 07/16/24 13:11 Sodium Zirconium Cyclosilicate 10 Gm Powd.Pack PO 10 gm DAILY PRN Administration hyperkalemia Trazodone HCl 50 mg 07/17/24 21:28 07/21/24 21:25 Trazodone Hcl 50 Mg Tablet PO 50 mg HS PRN Administration Insomnia Vitamin D 4,000 units 07/16/24 09:00 07/22/24 08:17 Cholecalciferol 1,000 Units Tablet PO 4,000 units DAILY ALLY Administration Radiology Results: ITS Impressions Abdomen X-Ray 07/16/24 08:54 Impression: Pacemaker. Moderate bilateral pleural effusions. Nonspecific bowel gas pattern. Chest X-Ray 07/21/24 20:04 IMPRESSION: 1. Moderate-sized pleural effusions. 2. Airspace opacities in the peripheral mid and lower lung zones, likely atelectasis and scarring. 3. Cardiomegaly. Labs Labs: Laboratory Results - last 24 hr 07/21/24 07/21/24 07/22/24 12:47 20:27 02:35 WBC 8.2 RBC 2.74 L Hgb 7.9 L Hct 26.9 L MCV 98.2 MCH 28.8 MCHC 29.4 L RDW 17.2 H Plt Count 173 MPV 9.9 Immature Gran % (Auto) 0.5 Neut % (Auto) 76.6 H Lymph % (Auto) 14.5 L Merrick % (Auto) 7.0 Eos % (Auto) 0.9 Baso % (Auto) 0.5 Lymph # (Auto) 1.19 Merrick # (Auto) 0.6 Eos # (Auto) 0.1 Baso # (Auto) 0.0 Abs Immat Gran (auto) 0.04 H Absolute Neuts (auto) 6.3 Absolute Nucleated RBC 0.000 Nucleated RBC % 0.0 Platelet Estimate Adequate Poikilocytosis 1+ Anisocytosis 1+ Schistocytes Rare APTT 158.6 H 95.0 H 90.5 H Sodium 139 Potassium 4.8 Chloride 101 Carbon Dioxide 29 Anion Gap 9 BUN 30 H D Creatinine 3.40 H Estim Creat Clear Calc 25 Estimated GFR 19 L Glucose 115 H Calcium 8.6 07/22/24 08:30 WBC RBC Hgb Hct MCV MCH MCHC RDW Plt Count MPV Immature Gran % (Auto) Neut % (Auto) Lymph % (Auto) Merrick % (Auto) Eos % (Auto) Baso % (Auto) Lymph # (Auto) Merrick # (Auto) Eos # (Auto) Baso # (Auto) Abs Immat Gran (auto) Absolute Neuts (auto) Absolute Nucleated RBC Nucleated RBC % Platelet Estimate Poikilocytosis Anisocytosis Schistocytes APTT 105.0 H Sodium Potassium Chloride Carbon Dioxide Anion Gap BUN Creatinine Estim Creat Clear Calc Estimated GFR Glucose Calcium
--- NOTE | 2024-07-22 11:03 | P.PNNP_ITS ---
Progress Note: A&P Assessment and Plan (1) Acute renal failure on dialysis: Code(s): N17.9 - Acute kidney failure, unspecified; Z99.2 - Dependence on renal dialysis Status: Acute Assessment and Plan: * as noted by last hospitalization here at [facility] * no evidence of renal recovery during hospitalization at [facility] (May 2024) * etiology felt to be secondary to multifactorial ATN: * hypotension/hemodynamic instability * sepsis/infection (+ bacteremia/endocarditis) * prerenal factors * previous cardiac issues/NSTEMI * appears to be dialysis dependent since April 2024 * HD tomorrow due to holiday schedule next week (Wednesday, Wednesday, and Wednesday) * follow trend of repeat labs and UOP to assess for potential renal recovery * however, since he had advanced CKD at baseline (and has been on dialysis previously), it is possible he maybe dialysis dependent (2) Chronic kidney disease, stage IV (severe): Code(s): N18.4 - Chronic kidney disease, stage 4 (severe) Status: Chronic Assessment and Plan: * baseline creatinine had been running ~ 3.3 - 3.8mg/dl prior to April 2024 hospitalization * felt to be secondary hypertension, vascular disease, previous obesity, COURTNEY, and left overs from his previous bouts of XOCHITL/ARF * still has had issues with metabolic acidosis and hyperkalemia at baseline requiring ongoing medical management (3) Endocarditis: Code(s): I38 - Endocarditis, valve unspecified Status: Acute Assessment and Plan: * VIGNESH on 07/20/24 with: * complex mass measuring 1.45 x 1.09 cm attached mainly to the posterior leaflet of the mechanical valve * several hypermobile serpiginous strands attached to the mass, the longest measures around 1.0 cm * the post leaflet is not moving well * mildly posteriorly directed mitral valve regurgitation. * 0.65 x 0.70 cm echogenic density attached to the left coronary cusp, most likely a vegetation. * small 0.45 x 0.31 cm echogenic density attached to the atrial side of the ant tricuspid leaflet most likely a vegetation * awaiting transfer to [facility] for Cardiothoracic evaluation (4) Acute on chronic anemia: Code(s): D64.9 - Anemia, unspecified Status: Acute Assessment and Plan: * as noted on admission with a Hgb of 5.7 * chronic anemia at baseline * however, noted to have melanotic stools and hemoccult positive * warfarin on hold (on heparin gtt due to heart valves at this time) * PRBC transfusion per protocol * Gastroenterology following - s/p EGD (on 07/17) with findings noted: * of Penaloza's esophagus, hiatal hernia, gastritis, reflux esophagitis and duodenitis * no evidence of acute or recent bleeding coming from the stomach or duodenum * complicated by XOCHITL and CKD * Retacrit with HD * follow trend of H/H (5) Bacteremia: Code(s): R78.81 - Bacteremia Status: Acute Assessment and Plan: * blood cultures with Klebs aerogenes (Enterobacter) * positive blood cultures on 07/16 * blood cultures on 07/19 - negative to date * presumed source = endocarditis (see #3) * at risk for seeding of his HD catheter and pacemaker * on antibiotics * repeat culture data noted (6) Congestive heart failure: Code(s): I50.9 - Heart failure, unspecified Status: Acute Assessment and Plan: * as evidenced by admission CXR * likely worsened by severe anemia on admission * fluid removal/ultrafiltration with dialysis as tolerated * follow respiratory status (7) Heart valve replaced: Code(s): Z95.2 - Presence of prosthetic heart valve Status: Acute Assessment and Plan: * noted known 3 valve replacements * careful anticoagulation in the context of anemia - on heparin gtt given likely need for future procedures * Cardiology following as well Will continue to follow. 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 Tolerated dialysis treatment yesterday without any issues or problems (approximately 2L fluid removal); no apparent distress voiced at the time of my visit -- resting comfortably in reclining chair when seen; no other events overnight or earlier this AM; no other acute complaints to report. Exam Narrative: General: WD/WN male in NAD Heart: normal S1 and S2; no rub Lungs: coarse and decreased at bases Abdomen: soft, nontender, nondistended, positive bowel sounds Extremities: no cyanosis or clubbing; no edema Skin: intact Objective Data Vital Signs Vital Signs: Vital Signs Temp Pulse Resp BP Pulse Ox O2 Del Method O2 Flow Rate 07/22/24 11:00 97.4 F L 90 24 H 110/57 L 97 07/22/24 08:23 89 07/22/24 08:23 89 20 94 Nasal Cannula 2 07/22/24 08:00 97.4 F L 89 22 H 107/54 L 93 07/22/24 08:20 Room Air 07/22/24 06:00 89 07/22/24 04:00 90 07/22/24 02:00 89 07/22/24 00:00 89 07/21/24 22:00 89 07/22/24 04:00 97 Nasal Cannula 2 07/22/24 00:00 97 Nasal Cannula 2 07/22/24 04:29 97.5 F L 90 20 105/48 L 97 07/21/24 23:39 97.6 F 89 22 H 110/54 L 97 07/21/24 20:00 89 07/21/24 20:00 97 Nasal Cannula 2 07/21/24 18:30 97.8 F 89 24 H 106/52 L 97 07/21/24 17:19 92 07/21/24 16:00 98 F 90 18 96/47 L 95 07/21/24 16:00 89 07/21/24 16:00 89 20 100 Room Air 07/21/24 14:00 89 Intake/Output Intake/Output: Intake & Output 07/19/24 07/20/24 07/21/24 07/22/24 23:59 23:59 23:59 23:59 Intake Total 1714.4 1681.3 2330.7 1260.0 Output Total 2000 100 2198 750 Balance -286.6 1581.3 132.7 510.0 Meds/Results Medications: Active Medications Generic Name Dose Route Start Last Admin Trade Name Freq PRN Reason Stop Dose Admin Acetaminophen 650 mg 07/17/24 10:05 07/22/24 08:18 Acetaminophen 325 Mg Tablet PO 650 mg Q4H PRN Administration Mild Pain (1-3) or Fever Benzonatate 100 mg 07/16/24 12:58 07/22/24 08:18 Benzonatate 100 Mg Capsule PO 100 mg TID PRN Administration Cough Carvedilol 3.125 mg 07/16/24 18:00 07/21/24 17:19 Carvedilol 3.125 Mg Tablet PO 3.125 mg QPM [facility] Administration Epoetin Parish-epbx 10,000 units 07/17/24 09:00 07/21/24 11:13 Epoetin Parish-Epbx 10,000 Units/Ml Vial IV PUSH 10,000 units MOWEFR@09 [facility] Administration Heparin Sodium (Porcine) 6,500 units 07/17/24 08:49 07/19/24 14:41 Heparin Sodium 5,000 Units/Ml Vial IV PUSH 6,500 units PRN PRN Administration aPTT less than 55 seconds Heparin Sodium (Porcine) 3,500 units 07/17/24 08:49 07/20/24 11:27 Heparin Sodium 5,000 Units/Ml Vial IV PUSH 3,500 units PRN PRN Administration aPTT 55 - 70 seconds Heparin Sodium/Dextrose 25,000 units in 250 mls @ 20 mls/hr 07/17/24 09:15 07/22/24 13:02 Heparin Sodium/D5w 100 Units/Ml IV CONT 2,000 units/hr .[id number] ALLY 20 mls/hr Administration Protocol 2,000 UNITS/HR Cefepime HCl 1 gm in 50 mls @ 100 mls/hr 07/18/24 10:20 07/22/24 09:00 Maxipime 1 Gm/Ns 50 Ml IVPB Infused DAILY [facility] Infusion Albumin Human 50 mls @ 999 mls/hr 07/19/24 04:55 Albutein IVPB 08/18/24 04:54 Q10M PRN HYPOTENSION Lorazepam 0.5 mg 07/19/24 17:15 07/21/24 19:41 Lorazepam (*Crx) 0.5 Mg Tablet PO 0.5 mg Q6H PRN Administration Anxiety Methocarbamol 500 mg 07/16/24 08:06 07/22/24 08:18 Methocarbamol 500 Mg Tablet PO 500 mg TID PRN Administration muscle cramps Ondansetron HCl 4 mg 07/16/24 20:51 Ondansetron Inj 4 Mg/2 Ml Vial IV PUSH Q6H PRN Nausea And Vomiting Pantoprazole Sodium 40 mg 07/21/24 09:00 07/22/24 08:18 Pantoprazole 40 Mg Tablet PO 40 mg QAM [facility] Administration Sodium Zirconium Cyclosilicate 10 gm 07/16/24 13:07 07/16/24 13:11 Sodium Zirconium Cyclosilicate 10 Gm Powd.Pack PO 10 gm DAILY PRN Administration hyperkalemia Trazodone HCl 50 mg 07/17/24 21:28 07/21/24 21:25 Trazodone Hcl 50 Mg Tablet PO 50 mg HS PRN Administration Insomnia Vitamin D 4,000 units 07/16/24 09:00 07/22/24 08:17 Cholecalciferol 1,000 Units Tablet PO 4,000 units DAILY ALLY Administration Radiology Results: ITS Impressions Abdomen X-Ray 07/16/24 08:54 Impression: Pacemaker. Moderate bilateral pleural effusions. Nonspecific bowel gas pattern. Chest X-Ray 07/21/24 20:04 IMPRESSION: 1. Moderate-sized pleural effusions. 2. Airspace opacities in the peripheral mid and lower lung zones, likely atelectasis and scarring. 3. Cardiomegaly. Labs Labs: Laboratory Tests 07/22/24 02:35 07/22/24 02:35 Microbiology 07/16/24 05:29 Blood Blood Culture - Final Klebs aerogenes (Enterobacter) 07/16/24 05:32 Blood Blood Culture - Final Klebs aerogenes (Enterobacter)
[2024-07-22] MEDS: HEPARIN SOD/D5W 100 UNITS/ML 25,000 UNITS/250 ML BAG 20 UNITS IV CONT (13:02)
[2024-07-22] MEDS: LORazepam (*CRX) 0.5 MG TABLET PO (14:33)
[2024-07-22] MEDS: carvediloL 3.125 MG TABLET PO (17:50)
[2024-07-23] VITALS (34 sets, daily range): BP systolic 99–135; BP diastolic 47–76; PULSE 83–104; RESP 14–18; TEMP 36.3–37.8; O2SAT 96–100
[2024-07-23] MEDS: BENZONATATE 100 MG CAPSULE PO (00:01)
[2024-07-23] MEDS: LORazepam (*CRX) 0.5 MG TABLET PO ×2 (00:01→08:33)
[2024-07-23] MEDS: methocarbamoL 500 MG TABLET PO (00:01)
[2024-07-23] MEDS: HEPARIN SOD/D5W 100 UNITS/ML 25,000 UNITS/250 ML BAG 20 UNITS IV CONT ×2 (00:02→15:48)
[2024-07-23 05:39] LABS: Hematocrit 25.5 % (42.0-52.0); Hemoglobin 7.4 g/dL (14.0-18.0); Mean Corpuscular Hemoglobin 28.5 pg (26-34); Mean Corpuscular Volume 98.1 fl (80-100); Mean Platelet Volume 10.1 fl (7.4-10.4); Platelet Count Result 180 k/mm3 (150-375); Red Cell Distribution Width 17.2 % (11.5-14.5)
[2024-07-23 05:49] LABS: Anion Gap 9 mmol/L (4-12); Blood Urea Nitrogen 44 mg/dL (9-20); Calcium 8.4 mg/dL (8.4-10.2); Carbon Dioxide 26 mmol/L (22-30); Chloride 100 mmol/L (98-107); Estimated CRCL calculation 18 ml/min; Estimated Glomerular Filt Rate 13; Glucose 110 mg/dL (65-110); Potassium 4.8 mmol/L (3.4-5.0); Sodium 135 mmol/L (137-145)
[2024-07-23 05:55] LABS: Partial Thromboplastin Time 77.1 Seconds (22.3-36.8)
[2024-07-23] MEDS: ACETAMINOPHEN 325 MG TABLET 650 MG PO ×2 (08:32)
[2024-07-23] MEDS: CHOLECALCIFEROL 1,000 UNITS TABLET 4000 UNITS PO (08:33)
[2024-07-23] MEDS: PANTOPRAZOLE 40 MG TABLET PO (08:33)
[2024-07-23] MEDS: SODIUM CHLORIDE 0.9% IV 1,000 ML 999 ML IV CONT (08:53)
--- NOTE | 2024-07-23 09:30 | P.PNNP_ITS ---
Progress Note: A&P Assessment and Plan (1) Acute renal failure on dialysis: Code(s): N17.9 - Acute kidney failure, unspecified; Z99.2 - Dependence on renal dialysis Status: Acute Assessment and Plan: * as noted by last hospitalization here at [facility] * no evidence of renal recovery during hospitalization at [place] (May 2024) * etiology felt to be secondary to multifactorial ATN: * hypotension/hemodynamic instability * sepsis/infection (+ bacteremia/endocarditis) * prerenal factors * previous cardiac issues/NSTEMI * appears to be dialysis dependent since April 2024 * HD today due to iday schedule (Wednesday, Wednesday, and Wednesday) * follow trend of repeat labs and UOP to assess for potential renal recovery * however, since he had advanced CKD at baseline (and has been on dialysis previously), it is possible he maybe dialysis dependent (2) Chronic kidney disease, stage IV (severe): Code(s): N18.4 - Chronic kidney disease, stage 4 (severe) Status: Chronic Assessment and Plan: * baseline creatinine had been running ~ 3.3 - 3.8mg/dl prior to April 2024 hospitalization * felt to be secondary hypertension, vascular disease, previous obesity, COURTNEY, and left overs from his previous bouts of XOCHITL/ARF * still has had issues with metabolic acidosis and hyperkalemia at baseline requiring ongoing medical management (3) Endocarditis: Code(s): I38 - Endocarditis, valve unspecified Status: Acute Assessment and Plan: * VIGNESH on 07/20/24 with: * complex mass measuring 1.45 x 1.09 cm attached mainly to the posterior leaflet of the mechanical valve * several hypermobile serpiginous strands attached to the mass, the longest measures around 1.0 cm * the post leaflet is not moving well * mildly posteriorly directed mitral valve regurgitation. * 0.65 x 0.70 cm echogenic density attached to the left coronary cusp, most likely a vegetation. * small 0.45 x 0.31 cm echogenic density attached to the atrial side of the ant tricuspid leaflet most likely a vegetation * awaiting transfer to [place] for Cardiothoracic evaluation (4) Acute on chronic anemia: Code(s): D64.9 - Anemia, unspecified Status: Acute Assessment and Plan: * as noted on admission with a Hgb of 5.7 * chronic anemia at baseline * however, noted to have melanotic stools and hemoccult positive * warfarin on hold (on heparin gtt due to heart valves at this time) * PRBC transfusion per protocol * Gastroenterology following - s/p EGD (on 07/17) with findings noted: * of Penaloza's esophagus, hiatal hernia, gastritis, reflux esophagitis and duodenitis * no evidence of acute or recent bleeding coming from the stomach or duodenum * complicated by XOCHITL and CKD * Retacrit with HD * follow trend of H/H (5) Bacteremia: Code(s): R78.81 - Bacteremia Status: Acute Assessment and Plan: * blood cultures with Klebs aerogenes (Enterobacter) * positive blood cultures on 07/16 * blood cultures on 07/19 - negative to date * presumed source = endocarditis (see #3) * at risk for seeding of his HD catheter and pacemaker * on antibiotics * repeat culture data noted (6) Congestive heart failure: Code(s): I50.9 - Heart failure, unspecified Status: Acute Assessment and Plan: * as evidenced by admission CXR * likely worsened by severe anemia on admission * fluid removal/ultrafiltration with dialysis as tolerated * follow respiratory status (7) Heart valve replaced: Code(s): Z95.2 - Presence of prosthetic heart valve Status: Acute Assessment and Plan: * noted known 3 valve replacements * careful anticoagulation in the context of anemia - on heparin gtt given likely need for future procedures * Cardiology following as well Will continue to follow. Subjective Date/time seen: 07/23/24 09:30 Interval history: Follow-up for acute kidney injury/acute renal failure on chronic kidney disease requiring HEAD OF OPERATION AND LOGISTICS/dialysis. Tolerating dialysis treatment at the time of my visit (seen on HD at 9:20AM); resting comfortably if not lethargic when seen (had received tylenol and ativan prior to initiation of dialysis treatment); no issues/events overnight or earlier this morning. Exam Narrative: General: WD/WN male in NAD Heart: normal S1 and S2; no rub Lungs: coarse and decreased at bases Abdomen: soft, nontender, nondistended, positive bowel sounds Extremities: no cyanosis or clubbing; no edema Skin: no rash Objective Data Vital Signs Vital Signs: Vital Signs Temp Pulse Resp BP Pulse Ox O2 Del Method O2 Flow Rate 07/23/24 09:30 89 111/62 07/23/24 09:15 89 104/62 07/23/24 09:01 89 112/66 07/23/24 08:53 98.1 F 89 18 110/62 07/23/24 08:53 3 07/23/24 07:49 97.7 F 89 16 114/64 100 07/23/24 05:58 89 07/23/24 04:00 97.7 F 89 18 99/47 L 100 07/23/24 04:00 89 07/23/24 03:41 98 Nasal Cannula 2 07/23/24 01:57 89 07/23/24 00:00 89 07/22/24 22:00 89 07/22/24 20:00 89 07/23/24 00:00 98 Nasal Cannula 2 07/22/24 20:00 98 Nasal Cannula 2 07/22/24 23:58 98.0 F 89 18 113/58 L 98 07/22/24 20:00 98.2 F 89 18 117/56 L 98 07/22/24 17:58 89 07/22/24 17:50 89 07/22/24 16:30 89 07/22/24 16:30 95 Nasal Cannula 2 07/22/24 15:19 98.2 F 89 24 H 108/52 L 95 07/22/24 14:00 90 Intake/Output Intake/Output: Intake & Output 07/20/24 07/21/24 07/22/24 07/23/24 23:59 23:59 23:59 23:59 Intake Total 1681.3 2330.7 1260.0 778.3 Output Total 100 2198 750 Balance 1581.3 132.7 510.0 778.3 Meds/Results Medications: Active Medications Generic Name Dose Route Start Last Admin Trade Name Freq PRN Reason Stop Dose Admin Acetaminophen 650 mg 07/17/24 10:05 07/23/24 08:32 Acetaminophen 325 Mg Tablet PO 650 mg Q4H PRN Administration Mild Pain (1-3) or Fever Benzonatate 100 mg 07/16/24 12:58 07/23/24 00:01 Benzonatate 100 Mg Capsule PO 100 mg TID PRN Administration Cough Carvedilol 3.125 mg 07/16/24 18:00 07/22/24 17:50 Carvedilol 3.125 Mg Tablet PO 3.125 mg QPM ALLY Administration Epoetin Parish 20,000 units 07/23/24 19:36 Epoetin [place] 20,000 Units/Ml Vial IV PUSH 07/23/24 19:37 ONCE ONE Heparin Sodium (Porcine) 6,500 units 07/17/24 08:49 07/19/24 14:41 Heparin Sodium 5,000 Units/Ml Vial IV PUSH 6,500 units PRN PRN Administration aPTT less than 55 seconds Heparin Sodium (Porcine) 3,500 units 07/17/24 08:49 07/20/24 11:27 Heparin Sodium 5,000 Units/Ml Vial IV PUSH 3,500 units PRN PRN Administration aPTT 55 - 70 seconds Heparin Sodium/Dextrose 25,000 units in 250 mls @ 20 mls/hr 07/17/24 09:15 07/23/24 05:57 Heparin Sodium/D5w 100 Units/Ml IV CONT 2,000 units/hr .[id number] ALLY 20 mls/hr Titration Protocol 2,000 UNITS/HR Cefepime HCl 1 gm in 50 mls @ 100 mls/hr 07/18/24 10:20 07/22/24 09:00 Maxipime 1 Gm/Ns 50 Ml IVPB Infused DAILY ALLY Infusion Albumin Human 50 mls @ 999 mls/hr 07/19/24 04:55 07/23/24 09:38 Albutein IVPB 08/18/24 04:54 999 mls/hr Q10M PRN Administration HYPOTENSION Lorazepam 0.5 mg 07/19/24 17:15 07/23/24 08:33 Lorazepam (*Crx) 0.5 Mg Tablet PO 0.5 mg Q6H PRN Administration Anxiety Methocarbamol 500 mg 07/16/24 08:06 07/23/24 00:01 Methocarbamol 500 Mg Tablet PO 500 mg TID PRN Administration muscle cramps Ondansetron HCl 4 mg 07/16/24 20:51 Ondansetron Inj 4 Mg/2 Ml Vial IV PUSH Q6H PRN Nausea And Vomiting Pantoprazole Sodium 40 mg 07/21/24 09:00 07/23/24 08:33 Pantoprazole 40 Mg Tablet PO 40 mg QAM ALLY Administration Sodium Zirconium Cyclosilicate 10 gm 07/16/24 13:07 07/16/24 13:11 Sodium Zirconium Cyclosilicate 10 Gm Powd.Pack PO 10 gm DAILY PRN Administration hyperkalemia Trazodone HCl 50 mg 07/17/24 21:28 07/21/24 21:25 Trazodone Hcl 50 Mg Tablet PO 50 mg HS PRN Administration Insomnia Vitamin D 4,000 units 07/16/24 09:00 07/23/24 08:33 Cholecalciferol 1,000 Units Tablet PO 4,000 units DAILY ALLY Administration Radiology Results: ITS Impressions Abdomen X-Ray 07/16/24 08:54 Impression: Pacemaker. Moderate bilateral pleural effusions. Nonspecific bowel gas pattern. Labs Labs: Laboratory Tests 07/23/24 04:04 07/23/24 04:04 Microbiology 07/16/24 05:29 Blood Blood Culture - Final Klebs aerogenes (Enterobacter) 07/16/24 05:32 Blood Blood Culture - Final Klebs aerogenes (Enterobacter)
[2024-07-23] MEDS: ALBUMIN HUMAN 25% 12.5 GM/50ML 50 ML IVPB (09:38)
--- NOTE | 2024-07-23 10:17 | ECG_ITS ---
Test Date: 2024-07-23 10:27:35 Measurements Intervals Lutz Rate: 89 P: 197 MO: 234 QRS: -23 QRSD: 186 T: 148 QT: 432 QTc: 527 Interpretive Statements ELECTRONIC ATRIAL PACEMAKER ELECTRONIC VENTRICULAR PACEMAKER BASELINE ARTIFACT- I, II, AVR, AVL NO FURTHER INTERPRETATION IS POSSIBLE ATYPICAL ECG Compared to ECG 07/20/2024 20:02:11 No significant changes Electronically Signed On 07-23-2024 12:01:04 STORAGE GARAGE MANAGER by Thony Rincon D.O.
[2024-07-23 10:19] LABS: Glucose Point of Care 114 mg/dl (65-105)
[2024-07-23 10:44] LABS: Alveolar/Arterial O2 Gradient 60.4 mmHg; Base Excess ABG 3.3 mEq/l (+/-2.0); Fractional Inspired Oxygen 32 %; HCO3 ABG 30.3 mEq/l (22.0-26.0); Oxygen Saturation ABG 96.4 % (95.0-100.0); Oxyhemoglobin 95.9 % THb (90.0-100.0); PO2 ABG 94.9 mmHg (80.0-100.0); PO2 FiO2 Ratio Arterial Blood 2.97 %; pH ABG 7.305 (7.350-7.450)
[2024-07-23 10:47] LABS: PCO2 ABG 62.3 mmHg (35.0-45.0)
[2024-07-23 10:48] LABS: Device NASAL CANNULA; Site Drawn LEFT BRACHIAL
--- NOTE | 2024-07-23 11:08 | PM.IMPN ---
Progress Note: A&P Assessment and Plan (1) Malaise: Code(s): R53.81 - Other malaise Status: Acute Assessment and Plan: Called to the room for patient not feeling well. No specific symptoms. No clear evidence of CVA or flail valve. CXR reviewed showing bilateral pleural effusions with pulm edema and atelectasis. Consider PNA. On cefepime. MRSA nasal swab negative 07/16. EKG showing paced rhythm Morning labs noted and no acute changes. ABG 7.30/62.3/95 on 3L. Never had elevated pCO2 in the past. Mild respiratory acidosis for unclear reasons. Over sedated with Ativan? Add BiPAP.. Repeat labs later today. Neuro checks. (2) Acute on chronic anemia: Code(s): D64.9 - Anemia, unspecified Status: Acute Assessment and Plan: Patient presented with chest pain, SOB and GNW. He was recently discharged from [facility] after his valve surgery about a week ago. He has been on anticoagulation with warfarin. Vitals were stable on ED evaluation. Hemoglobin of 5.7. His recent discharge hemoglobin was 7.7. He reported dark stool and FOBT was positive. Warfarin held. He received total of 2U PRBCs. GI consulted. PPI started. EGD 07/17 showing Penaloza's esophagus, hiatal hernia, gastritis, reflux esophagitis and duodenitis. Please see report for details. There was no evidence of acute or recent bleeding coming from the stomach or duodenum to explain low Hgb. Hgb stable in the 7-8 range. Warfarin remains on hold. Heparin drip restarted after his EGD as per recommended by order planner. Follow. Transfuse p.r.n. to keep hemoglobin more than 7. (3) Bacteremia: Code(s): R78.81 - Bacteremia Status: Acute Assessment and Plan: Patient was here in April and found to bacteremia with Enterobacter and endocarditis. He was transferred to [facility] and underwent valve surgery. BCx drawn this admission again again show Enterobacter sensitive to Cefepime. Several sources present with dialysis catheter, dental disease, pacemaker as well as recent valve replacement. He was started on cefepime Repeat BCx NGTD. VIGNESH showing vegetation on the aortic, mitral and tricuspid valve. Please see report for details. Patient has been accepted by [facility] for transfer. Qa Test Analyst himself called on 07/20 and spoke with surgeon about this case (4) Endocarditis: Code(s): I38 - Endocarditis, valve unspecified Status: Acute Assessment and Plan: Patient had VIGNESH today showing: - A complex mass measuring 1.45 x 1.09 cm attached mainly to the posterior leaflet of the mechanical mitral valve. - There are several hypermobile serpiginous strands attached to the mass, the longest measures around 1.0 cm. - The post leaflet is not moving well. - There is mild posteriorly directed mitral valve regurgitation. - There is a 0.65 x 0.70 cm echogenic density attached to the left coronary cusp of aortic valve, most likely a vegetation. - There is a small 0.45 x 0.31 cm echogenic density attached to the atrial side of the ant tricuspid leaflet most likely a vegetation Spoke with Eric 07/22 to provide update. (5) Presence of other heart-valve replacement: Code(s): Z95.4 - Presence of other heart-valve replacement Status: Acute Assessment and Plan: In April, VIGNESH showed aortic valve is a bicuspid aortic valve with STUART 1.0-1.2 cm2, consistent with moderate stenosis. VIGNESH also showing vegetation posterior mitral valve. Patient was sent to [facility]. Patient now has mechanical valves with a 25mm On-X AVR with root repair using bovine pericardial patch, 31mm [place] MVR with annular repair and TVr with 28mm annuloplasty ring. Cardiology consulted. Goal INR should be 3-3.5 given fresh mechanical valves Continue heparin infusion for now (6) Melanotic stools: Code(s): K92.1 - Melena Status: Acute Assessment and Plan: As above. Possibly a lower SB bleed, possibly AVM. HH stable Monitor HH and transfuse as needed. (7) Elevated troponin: Code(s): R79.89 - Other specified abnormal findings of blood chemistry Status: Acute Assessment and Plan: His troponin was elevated but remained flat. He was having CP and SOB prior to admission. Likely due to demand ischemia from anemia. Cardiology consulted. Continue heparin drip due to mechanical valve. (8) End-stage renal disease on hemodialysis: Code(s): N18.6 - End stage renal disease; Z99.2 - Dependence on renal dialysis Status: Acute Assessment and Plan: ESRD on hemodialysis recently started from April 2024 On HD Wednesday. Nephrology consulted and appreciate their input (9) Chest pain: Qualifiers: Chest pain type: unspecified Qualified Code(s): R07.9 - Chest pain, unspecified Code(s): R07.9 - Chest pain, unspecified Status: Acute Assessment and Plan: As above (10) Aortic valve replaced: Code(s): Z95.2 - Presence of prosthetic heart valve Status: Acute Assessment and Plan: Cardiology able to review outside records. Patient with a 25mm On-X AVR with root repair using bovine percardial patch. As above. Plan DVT prophylaxis Heparin Code status full code Subjective Date/time seen: 07/23/24 11:08 Interval history: 59yo male with COURTNEY, HTN, CKD, CHF and recent valvular surgery due to endocarditis who presented to the ER from home due to acute onset of shortness of breath and tachycardia. Called to HD unit. Patient states 'I don't feel good'. Received Atinvan overnight. He had diffuse pain and anxiety prior to HD this morning and received Ativan and Tylenol. He is somnolent but oriented. Denies n/v. No SOB or cough. No CP. No headache. Exam Narrative: AF 98.1 122/69 89 18 100% 3L Gen - mildly tachypneic lying semi-recumbent in bed. Chest - clear anteriorly but decreased BS in the flanks. RR 28. HD catheter in the right upper chest currently accessed. CV - RRR S1/S2 with mechanical heart sounds without loud murmur. Tele showing mostly paced rhythm. Abd - Soft, NT/ND, Positive BS Ext - trace bilateral pedal edema. Neuro - somnolent and keeps eyes closed. No focal weakness. No facial droop. oriented x4 Psych - Nml mood and affect Skin - Warm and dry Objective Data Vital Signs Vital Signs: Vital Signs - 24 hr 07/22/24 11:36 07/22/24 12:00 07/22/24 12:00 Temperature 97.4 F L Pulse Rate 90 90 Respiratory Rate 24 H Blood Pressure 110/57 L Pulse Oximetry 97 95 Oxygen Delivery Nasal Cannula Oxygen Flow Rate 2 07/22/24 14:00 07/22/24 15:19 07/22/24 16:30 Temperature 98.2 F Pulse Rate 90 89 Respiratory Rate 24 H Blood Pressure 108/52 L Pulse Oximetry 95 95 Oxygen Delivery Nasal Cannula Oxygen Flow Rate 2 07/22/24 16:30 07/22/24 17:50 07/22/24 17:58 Temperature Pulse Rate 89 89 89 Respiratory Rate Blood Pressure Pulse Oximetry Oxygen Delivery Oxygen Flow Rate 07/22/24 20:00 07/22/24 23:58 07/22/24 20:00 Temperature 98.2 F 98.0 F Pulse Rate 89 89 Respiratory Rate 18 18 Blood Pressure 117/56 L 113/58 L Pulse Oximetry 98 98 98 Oxygen Delivery Nasal Cannula Oxygen Flow Rate 2 07/23/24 00:00 07/22/24 20:00 07/22/24 22:00 Temperature Pulse Rate 89 89 Respiratory Rate Blood Pressure Pulse Oximetry 98 Oxygen Delivery Nasal Cannula Oxygen Flow Rate 2 07/23/24 00:00 07/23/24 01:57 07/23/24 03:41 Temperature Pulse Rate 89 89 Respiratory Rate Blood Pressure Pulse Oximetry 98 Oxygen Delivery Nasal Cannula Oxygen Flow Rate 2 07/23/24 04:00 07/23/24 04:00 07/23/24 05:58 Temperature 97.7 F Pulse Rate 89 89 89 Respiratory Rate 18 Blood Pressure 99/47 L Pulse Oximetry 100 Oxygen Delivery Oxygen Flow Rate 07/23/24 07:49 07/23/24 08:53 07/23/24 08:53 Temperature 97.7 F 98.1 F Pulse Rate 89 89 Respiratory Rate 16 18 Blood Pressure 114/64 110/62 Pulse Oximetry 100 Oxygen Delivery Oxygen Flow Rate 3 07/23/24 09:01 07/23/24 09:15 07/23/24 09:30 Temperature Pulse Rate 89 89 89 Respiratory Rate Blood Pressure 112/66 104/62 111/62 Pulse Oximetry Oxygen Delivery Oxygen Flow Rate 07/23/24 09:45 07/23/24 10:00 07/23/24 10:15 Temperature Pulse Rate 89 88 89 Respiratory Rate Blood Pressure 116/57 L 115/65 121/65 Pulse Oximetry Oxygen Delivery Oxygen Flow Rate 07/23/24 08:00 07/23/24 10:00 07/23/24 08:00 Temperature Pulse Rate 89 90 Respiratory Rate Blood Pressure Pulse Oximetry 100 Oxygen Delivery Nasal Cannula Oxygen Flow Rate 2 07/23/24 10:30 07/23/24 10:45 07/23/24 11:00 Temperature Pulse Rate 89 89 89 Respiratory Rate Blood Pressure 117/65 121/68 122/69 Pulse Oximetry Oxygen Delivery Oxygen Flow Rate Intake/Output Intake/Output: Intake & Output 07/20/24 07/21/24 07/22/24 07/23/24 23:59 23:59 23:59 23:59 Intake Total 1681.3 2330.7 1260.0 778.3 Output Total 100 2198 750 Balance 1581.3 132.7 510.0 778.3 Meds/Results Medications: Active Medications Generic Name Dose Route Start Last Admin Trade Name Freq PRN Reason Stop Dose Admin Acetaminophen 650 mg 07/17/24 10:05 07/23/24 08:32 Acetaminophen 325 Mg Tablet PO 650 mg Q4H PRN Administration Mild Pain (1-3) or Fever Benzonatate 100 mg 07/16/24 12:58 07/23/24 00:01 Benzonatate 100 Mg Capsule PO 100 mg TID PRN Administration Cough Carvedilol 3.125 mg 07/16/24 18:00 07/22/24 17:50 Carvedilol 3.125 Mg Tablet PO 3.125 mg QPM ALLY Administration Epoetin Parish 20,000 units 07/23/24 19:36 Epoetin [place] 20,000 Units/Ml Vial IV PUSH 07/23/24 19:37 ONCE ONE Heparin Sodium (Porcine) 6,500 units 07/17/24 08:49 07/19/24 14:41 Heparin Sodium 5,000 Units/Ml Vial IV PUSH 6,500 units PRN PRN Administration aPTT less than 55 seconds Heparin Sodium (Porcine) 3,500 units 07/17/24 08:49 07/20/24 11:27 Heparin Sodium 5,000 Units/Ml Vial IV PUSH 3,500 units PRN PRN Administration aPTT 55 - 70 seconds Heparin Sodium/Dextrose 25,000 units in 250 mls @ 20 mls/hr 07/17/24 09:15 07/23/24 05:57 Heparin Sodium/D5w 100 Units/Ml IV CONT 2,000 units/hr .[id number] [facility] 20 mls/hr Titration Protocol 2,000 UNITS/HR Cefepime HCl 1 gm in 50 mls @ 100 mls/hr 07/18/24 10:20 07/22/24 09:00 Maxipime 1 Gm/Ns 50 Ml IVPB Infused DAILY ALLY Infusion Albumin Human 50 mls @ 999 mls/hr 07/19/24 04:55 07/23/24 09:38 Albutein IVPB 08/18/24 04:54 999 mls/hr Q10M PRN Administration HYPOTENSION Lorazepam 0.5 mg 07/19/24 17:15 07/23/24 08:33 Lorazepam (*Crx) 0.5 Mg Tablet PO 0.5 mg Q6H PRN Administration Anxiety Methocarbamol 500 mg 07/16/24 08:06 07/23/24 00:01 Methocarbamol 500 Mg Tablet PO 500 mg TID PRN Administration muscle cramps Ondansetron HCl 4 mg 07/16/24 20:51 Ondansetron Inj 4 Mg/2 Ml Vial IV PUSH Q6H PRN Nausea And Vomiting Pantoprazole Sodium 40 mg 07/21/24 09:00 07/23/24 08:33 Pantoprazole 40 Mg Tablet PO 40 mg QAM ALLY Administration Sodium Zirconium Cyclosilicate 10 gm 07/16/24 13:07 07/16/24 13:11 Sodium Zirconium Cyclosilicate 10 Gm Powd.Pack PO 10 gm DAILY PRN Administration hyperkalemia Trazodone HCl 50 mg 07/17/24 21:28 07/21/24 21:25 Trazodone Hcl 50 Mg Tablet PO 50 mg HS PRN Administration Insomnia Vitamin D 4,000 units 07/16/24 09:00 07/23/24 08:33 Cholecalciferol 1,000 Units Tablet PO 4,000 units DAILY ALLY Administration Radiology Results: ITS Impressions Abdomen X-Ray 07/16/24 08:54 Impression: Pacemaker. Moderate bilateral pleural effusions. Nonspecific bowel gas pattern. Chest X-Ray 07/23/24 10:28 IMPRESSION: 1. Persistent, edema and small right and moderate-sized left pleural effusions. 2. Opacities in the left mid and bilateral lower lung zones which could represent associated atelectasis or pneumonia. Labs Labs: Laboratory Results - last 24 hr 07/23/24 07/23/24 07/23/24 04:04 10:15 10:39 WBC 9.0 RBC 2.60 L Hgb 7.4 L Hct 25.5 L MCV 98.1 MCH 28.5 MCHC 29.0 L RDW 17.2 H Plt Count 180 MPV 10.1 APTT 77.1 H Puncture Site Left brachial ABG pH 7.305 L ABG pCO2 62.3 H* ABG pO2 94.9 ABG PO2/FiO2 Ratio 2.97 ABG HCO3 30.3 H ABG O2 Saturation 96.4 ABG O2 Content 11.0 L ABG Base Excess 3.3 A-a Gradient 60.4 Oxyhemoglobin 95.9 Total Hemoglobin 8.0 L O2 Delivery Device Nasal cannula O2 Liters/Min 3.0 FiO2 32 Sodium 135 L Potassium 4.8 Chloride 100 Carbon Dioxide 26 Anion Gap 9 BUN 44 H D Creatinine 4.70 H Estim Creat Clear Calc 18 Estimated GFR 13 L Glucose 110 POC Capillary Glucose 114 H Calcium 8.4
[2024-07-23] MEDS: EPOETIN ALFA 20,000 UNITS/ML VIAL 20000 UNITS IV PUSH (11:14)
--- NOTE | 2024-07-23 11:49 | PC.NURSE ---
Patient is dyspneic. BiPAP was ordered based on ABG results. Respiratory at bedside in dialysis stating the patient is refusing BiPAP. Dr. Vazquez was notified and aware of the patient refusing BiPAP.
--- NOTE | 2024-07-23 11:54 | PCRCNOTE ---
1145 Pt refused to wear BIPAP Dr Vazquez aware
[2024-07-23] MEDS: CEFEPIME 1 GM/NS 50 ML 1 GM/50 ML BAG IVPB (13:55)
[2024-07-23] MEDS: carvediloL 3.125 MG TABLET PO (17:33)
--- NOTE | 2024-07-23 22:09 | PC.NURSE ---
Patient repeatedly asked to keep his oxygen and pulse ox on. Reapplied by this nurse several times. patient refusing bed alarm. Reinforced having staff assist to get out of bed multiple times already this shift. Patient has got up unassisted after reinforcement given. will continue to monitor.
[2024-07-24] VITALS (22 sets, daily range): BP systolic 102–112; BP diastolic 51–62; PULSE 63–90; RESP 18–22; TEMP 36.3–37.3; O2SAT 94–100
[2024-07-24] MEDS: HEPARIN SOD/D5W 100 UNITS/ML 25,000 UNITS/250 ML BAG 20 UNITS IV CONT ×2 (00:28→13:03)
[2024-07-24 05:49] LABS: Basophils Percent Auto 0.4 % (0.2-1.2); Eosinophils Absolute Auto 0.1 K/mm3 (0-0.3); Eosinophils Percent Auto 0.9 % (0-4.4); Hemoglobin 7.1 g/dL (14.0-18.0); Immature Granulocyte Absolute 0.06 K/mm3 (0.00-0.031); Immature Granulocyte Percent A 0.6 % (0-0.5); Lymphocytes Percent Auto 16.1 % (18.3-44.2); Mean Corpuscular HGB Conc 28.4 g/dl (32-36); Mean Corpuscular Volume 98.4 fl (80-100); Mean Platelet Volume 10.1 fl (7.4-10.4); Monocytes Absolute Auto 0.8 K/mm3 (0.1-0.6); Neutrophils Absolute Auto 6.9 K/mm3 (1.3-6.7); Platelet Count Result 178 k/mm3 (150-375); Red Blood Count 2.54 M/mm3 (4.6-6.20); Red Cell Distribution Width 17.7 % (11.5-14.5); White Blood Count 9.3 K/mm3 (4.5-10.0)
[2024-07-24 06:05] LABS: Alanine Aminotransferase 17 U/L (6-50); Albumin Level 3.4 g/dL (3.5-5.1); Alkaline Phosphatase 176 U/L (38-126); Anion Gap 9 mmol/L (4-12); Aspartate Amino Transferase 23 U/L (17-59); Bilirubin,Total 0.7 mg/dL (0.2-1.3); Blood Urea Nitrogen 32 mg/dL (9-20); Calcium 8.5 mg/dL (8.4-10.2); Carbon Dioxide 29 mmol/L (22-30); Chloride 100 mmol/L (98-107); Estimated CRCL calculation 25 ml/min; Estimated Glomerular Filt Rate 18; Glucose 107 mg/dL (65-110); Magnesium 2.1 mg/dL (1.6-2.3); Phosphorus 3.7 mg/dL (2.5-4.5); Potassium 4.6 mmol/L (3.4-5.0); Sodium 138 mmol/L (137-145)
[2024-07-24 06:11] LABS: Partial Thromboplastin Time 90.7 Seconds (22.3-36.8)
[2024-07-24 06:59] LABS: Hypochromasia 1+; Platelet Estimate Adequate (Adequate)
[2024-07-24 07:02] LABS: Polychromasia 1+
[2024-07-24 07:03] LABS: Anisocytosis 1+
[2024-07-24 07:05] LABS: Schistocytes Rare
[2024-07-24] MEDS: PANTOPRAZOLE 40 MG TABLET PO (07:57)
[2024-07-24] MEDS: BENZONATATE 100 MG CAPSULE PO ×2 (07:57→21:17)
[2024-07-24] MEDS: methocarbamoL 500 MG TABLET PO (07:57)
[2024-07-24] MEDS: CHOLECALCIFEROL 1,000 UNITS TABLET 4000 UNITS PO (07:58)
--- NOTE | 2024-07-24 09:39 | PCNWS ---
Weekly nutritional screen. Patient is tolerating current heart healthy diet with adequate intake 100% all meals, Ensure compact BID also in place. No weight loss reported. No nutritional recommendations at this time.
--- NOTE | 2024-07-24 11:01 | P.PNNP_ITS ---
Progress Note: A&P Assessment and Plan (1) Acute renal failure on dialysis: Code(s): N17.9 - Acute kidney failure, unspecified; Z99.2 - Dependence on renal dialysis Status: Acute Assessment and Plan: * as noted by last hospitalization here at [facility] * no evidence of renal recovery during hospitalization at [place] (May 2024) * etiology felt to be secondary to multifactorial ATN: * hypotension/hemodynamic instability * sepsis/infection (+ bacteremia/endocarditis) * prerenal factors * previous cardiac issues/NSTEMI * appears to be dialysis dependent since April 2024 * HD tomorrow due to holiday schedule (Wednesday, Wednesday, and Wednesday) * follow trend of repeat labs and UOP to assess for potential renal recovery * however, since he had advanced CKD at baseline (and has been on dialysis previously), it is possible he maybe dialysis dependent (2) Chronic kidney disease, stage IV (severe): Code(s): N18.4 - Chronic kidney disease, stage 4 (severe) Status: Chronic Assessment and Plan: * baseline creatinine had been running ~ 3.3 - 3.8mg/dl prior to April 2024 hospitalization * felt to be secondary hypertension, vascular disease, previous obesity, COURTNEY, and left overs from his previous bouts of XOCHITL/ARF * still has had issues with metabolic acidosis and hyperkalemia at baseline requiring ongoing medical management (3) Endocarditis: Code(s): I38 - Endocarditis, valve unspecified Status: Acute Assessment and Plan: * VIGNESH on 07/20/24 with: * complex mass measuring 1.45 x 1.09 cm attached mainly to the posterior leaflet of the mechanical valve * several hypermobile serpiginous strands attached to the mass, the longest measures around 1.0 cm * the post leaflet is not moving well * mildly posteriorly directed mitral valve regurgitation. * 0.65 x 0.70 cm echogenic density attached to the left coronary cusp, most likely a vegetation. * small 0.45 x 0.31 cm echogenic density attached to the atrial side of the ant tricuspid leaflet most likely a vegetation * awaiting transfer to [place] for Cardiothoracic Surgery evaluation (4) Acute on chronic anemia: Code(s): D64.9 - Anemia, unspecified Status: Acute Assessment and Plan: * as noted on admission with a Hgb of 5.7 * chronic anemia at baseline * however, noted to have melanotic stools and hemoccult positive * warfarin on hold (on heparin gtt due to heart valves at this time) * PRBC transfusion per protocol * Gastroenterology following - s/p EGD (on 07/17) with findings noted: * of Penaloza's esophagus, hiatal hernia, gastritis, reflux esophagitis and duodenitis * no evidence of acute or recent bleeding coming from the stomach or duodenum * complicated by XOCHITL and CKD * Retacrit with HD * follow trend of H/H (5) Bacteremia: Code(s): R78.81 - Bacteremia Status: Acute Assessment and Plan: * blood cultures with Klebs aerogenes (Enterobacter) * positive blood cultures on 07/16 * blood cultures on 07/19 - negative to date * presumed source = endocarditis (see #3) * at risk for seeding of his HD catheter and pacemaker * on antibiotics * repeat culture data noted (6) Congestive heart failure: Code(s): I50.9 - Heart failure, unspecified Status: Acute Assessment and Plan: * as evidenced by admission CXR * likely worsened by severe anemia on admission * fluid removal/ultrafiltration with dialysis as tolerated * follow respiratory status (7) Heart valve replaced: Code(s): Z95.2 - Presence of prosthetic heart valve Status: Acute Assessment and Plan: * noted known 3 valve replacements * careful anticoagulation in the context of anemia - on heparin gtt given likely need for future procedures * Cardiology following as well Will continue to follow. Subjective Date/time seen: 07/24/24 11:01 Interval history: Follow-up for acute kidney injury/acute renal failure on chronic kidney disease requiring POWER DISTRIBUTOR/dialysis. Tolerated dialysis yesterday without any issues or problems; no apparent distress noted at the time of my visit; denies any shortness of breath or chest pain; no events overnight or earlier this morning; no other acute complaints voiced. Exam Narrative: General: WD/WN male in NAD Heart: normal S1 and S2; no rub Lungs: coarse and decreased at bases Abdomen: soft, nontender, nondistended, positive bowel sounds Extremities: no cyanosis or clubbing; no edema Skin: no nodules Objective Data Vital Signs Vital Signs: Vital Signs Temp Pulse Resp BP Pulse Ox O2 Del Method O2 Flow Rate 07/24/24 11:00 89 18 98 Nasal Cannula 2 07/24/24 10:00 89 07/24/24 08:00 88 07/24/24 08:00 89 07/24/24 08:00 89 18 98 Nasal Cannula 2 07/24/24 07:41 98.1 F 89 18 112/56 L 98 07/24/24 06:00 89 07/24/24 04:00 89 07/24/24 03:47 89 18 95 Nasal Cannula 2 07/24/24 02:00 89 07/24/24 03:30 99.1 F 89 18 105/55 L 95 07/24/24 00:00 89 07/24/24 00:00 90 18 96 Nasal Cannula 2 07/23/24 23:00 98.5 F 90 18 106/48 L 96 07/23/24 22:00 90 07/23/24 20:00 100 07/23/24 20:00 104 H 18 98 Nasal Cannula 2 07/23/24 19:39 100.1 F H 104 H 18 121/76 98 07/23/24 18:00 99 Intake/Output Intake/Output: Intake & Output 07/21/24 07/22/24 07/23/24 07/24/24 23:59 23:59 23:59 23:59 Intake Total 2330.7 1260.0 1440.0 3263.3 Output Total 2198 750 3050 Balance 132.7 510.0 -1610.0 3263.3 Meds/Results Medications: Active Medications Generic Name Dose Route Start Last Admin Trade Name Freq PRN Reason Stop Dose Admin Acetaminophen 650 mg 07/17/24 10:05 07/24/24 13:07 Acetaminophen 325 Mg Tablet PO 650 mg Q4H PRN Administration Mild Pain (1-3) or Fever Benzonatate 100 mg 07/16/24 12:58 07/24/24 07:57 Benzonatate 100 Mg Capsule PO 100 mg TID PRN Administration Cough Carvedilol 3.125 mg 07/16/24 18:00 07/23/24 17:33 Carvedilol 3.125 Mg Tablet PO 3.125 mg QPM ALLY Administration Heparin Sodium (Porcine) 6,500 units 07/17/24 08:49 07/19/24 14:41 Heparin Sodium 5,000 Units/Ml Vial IV PUSH 6,500 units PRN PRN Administration aPTT less than 55 seconds Heparin Sodium (Porcine) 3,500 units 07/17/24 08:49 07/20/24 11:27 Heparin Sodium 5,000 Units/Ml Vial IV PUSH 3,500 units PRN PRN Administration aPTT 55 - 70 seconds Heparin Sodium/Dextrose 25,000 units in 250 mls @ 20 mls/hr 07/17/24 09:15 07/24/24 13:03 Heparin Sodium/D5w 100 Units/Ml IV CONT 2,000 units/hr .[id number] ALLY 20 mls/hr Administration Protocol 2,000 UNITS/HR Cefepime HCl 1 gm in 50 mls @ 100 mls/hr 07/18/24 10:20 07/24/24 12:21 Maxipime 1 Gm/Ns 50 Ml IVPB 100 mls/hr DAILY ALLY Administration Albumin Human 50 mls @ 999 mls/hr 07/19/24 04:55 07/23/24 09:38 Albutein IVPB 08/18/24 04:54 999 mls/hr Q10M PRN Administration HYPOTENSION Lorazepam 0.5 mg 07/19/24 17:15 07/23/24 08:33 Lorazepam (*Crx) 0.5 Mg Tablet PO 0.5 mg Q6H PRN Administration Anxiety Methocarbamol 500 mg 07/16/24 08:06 07/24/24 07:57 Methocarbamol 500 Mg Tablet PO 500 mg TID PRN Administration muscle cramps Ondansetron HCl 4 mg 07/16/24 20:51 Ondansetron Inj 4 Mg/2 Ml Vial IV PUSH Q6H PRN Nausea And Vomiting Pantoprazole Sodium 40 mg 07/21/24 09:00 07/24/24 07:57 Pantoprazole 40 Mg Tablet PO 40 mg QAM ALLY Administration Sodium Zirconium Cyclosilicate 10 gm 07/16/24 13:07 07/16/24 13:11 Sodium Zirconium Cyclosilicate 10 Gm Powd.Pack PO 10 gm DAILY PRN Administration hyperkalemia Trazodone HCl 50 mg 07/17/24 21:28 07/21/24 21:25 Trazodone Hcl 50 Mg Tablet PO 50 mg HS PRN Administration Insomnia Vitamin D 4,000 units 07/16/24 09:00 07/24/24 07:58 Cholecalciferol 1,000 Units Tablet PO 4,000 units DAILY ALLY Administration Radiology Results: ITS Impressions Abdomen X-Ray 07/16/24 08:54 Impression: Pacemaker. Moderate bilateral pleural effusions. Nonspecific bowel gas pattern. Chest X-Ray 07/23/24 10:28 IMPRESSION: 1. Persistent, edema and small right and moderate-sized left pleural effusions. 2. Opacities in the left mid and bilateral lower lung zones which could represent associated atelectasis or pneumonia. Labs Labs: Laboratory Tests 07/24/24 05:11 07/24/24 05:11 Calcium 8.5 Phosphorus 3.7 Magnesium 2.1 Total Bilirubin 0.7 AST 23 ALT 17 Alkaline Phosphatase 176 H Total Protein 8.0 Albumin 3.4 L
[2024-07-24] MEDS: CEFEPIME 1 GM/NS 50 ML 1 GM/50 ML BAG IVPB (12:21)
[2024-07-24] MEDS: ACETAMINOPHEN 325 MG TABLET 650 MG PO ×2 (13:07→21:18)
--- NOTE | 2024-07-24 13:09 | P.PNIM_ITS ---
Progress Note: A&P Assessment and Plan (1) Malaise: Code(s): R53.81 - Other malaise Status: Acute Assessment and Plan: Called to the room for patient not feeling well on 07/23. No specific symptoms. No clear exam evidence of CVA or flail valve. CXR reviewed showing bilateral pleural effusions with pulm edema and atelectasis. Consider PNA but on cefepime. MRSA nasal swab negative 07/16. EKG showing paced rhythm ABG 7.30/62.3/95 on 3L. Never had elevated pCO2 in the past. Mild respiratory acidosis for unclear reasons. Over sedated with Ativan? BiPAP ordered but he refused. Symptoms have resolved. Probably related to frequent prn Ativan doses which has been stopped. (2) Acute on chronic anemia: Code(s): D64.9 - Anemia, unspecified Status: Acute Assessment and Plan: Patient presented with chest pain, SOB and GNW. He was recently discharged from [place] after his valve surgery about a week ago. He has been on anticoagulation with warfarin. Vitals were stable on ED evaluation. Hemoglobin of 5.7. His recent discharge hemoglobin was 7.7. He reported dark stool and FOBT was positive. Warfarin held. He received total of 2U PRBCs. GI consulted. PPI started. EGD 07/17 showing Penaloza's esophagus, hiatal hernia, gastritis, reflux esophagi tis and duodenitis. Please see report for details. There was no evidence of acute or recent bleeding coming from the stomach or duodenum to explain low Hgb. Hgb stable in the 7-8 range. Warfarin remains on hold. Heparin drip restarted after his EGD as per recommended by enterprise application developer. Follow. Transfuse p.r.n. to keep hemoglobin more than 7. (3) Bacteremia: Code(s): R78.81 - Bacteremia Status: Acute Assessment and Plan: Patient was here in April and found to bacteremia with Enterobacter and endocarditis. He was transferred to [place] and underwent valve surgery. BCx drawn this admission again again show Enterobacter sensitive to Cefepime. Several sources present with dialysis catheter, dental disease, pacemaker as well as recent valve replacement. He was started on cefepime Repeat BCx NGTD. VIGNESH showing vegetation on the aortic, mitral and tricuspid valve. Please see report for details. Patient has been accepted by [place] for transfer. Tracer Bullet Charging Machine Operator himself called on 07/20 and spoke with surgeon about this case. Waiting for bed. (4) Endocarditis: Code(s): I38 - Endocarditis, valve unspecified Status: Acute Assessment and Plan: Patient had VIGNESH 07/20 showing: - A complex mass measuring 1.45 x 1.09 cm attached mainly to the posterior leaflet of the mechanical mitral valve. - There are several hypermobile serpiginous strands attached to the mass, the longest measures around 1.0 cm. - The post leaflet is not moving well. - There is mild posteriorly directed mitral valve regurgitation. - There is a 0.65 x 0.70 cm echogenic density attached to the left coronary cusp of aortic valve, most likely a vegetation. - There is a small 0.45 x 0.31 cm echogenic density attached to the atrial side of the ant tricuspid leaflet most likely a vegetation Spoke with Reyes 07/22 to provide update. (5) Presence of other heart-valve replacement: Code(s): Z95.4 - Presence of other heart-valve replacement Status: Acute Assessment and Plan: In April, VIGNESH showed aortic valve is a bicuspid aortic valve with STUART 1.0- 1.2 cm2, consistent with moderate stenosis. VIGNESH also showing vegetation posterior mitral valve. Patient was sent to [place]. Patient now has mechanical valves with a 25mm On-X AVR with root repair using bovine pericardial patch, 31mm [place] MVR with annular repair and TVr with 28mm annuloplasty ring. Cardiology consulted. Goal INR should be 3-3.5 given fresh mechanical valves when Coumadin resumed Continue heparin infusion for now (6) Melanotic stools: Code(s): K92.1 - Melena Status: Acute Assessment and Plan: As above. Possibly a lower SB bleed, possibly AVM. HH low but stable Monitor HH and transfuse as needed. (7) Elevated troponin: Code(s): R79.89 - Other specified abnormal findings of blood chemistry Status: Acute Assessment and Plan: His troponin was elevated but remained flat. He was having CP and SOB prior to admission. Likely due to demand ischemia from anemia. Cardiology consulted. Continue heparin drip due to mechanical valve. (8) End-stage renal disease on hemodialysis: Code(s): N18.6 - End stage renal disease; Z99.2 - Dependence on renal dialysis Status: Acute Assessment and Plan: ESRD on hemodialysis recently started from April 2024 On HD Wednesday. But on holiday schedule now Nephrology consulted and appreciate their input (9) Chest pain: Qualifiers: Chest pain type: unspecified Qualified Code(s): R07.9 - Chest pain, unspecified Code(s): R07.9 - Chest pain, unspecified Status: Acute Assessment and Plan: As above (10) Aortic valve replaced: Code(s): Z95.2 - Presence of prosthetic heart valve Status: Acute Assessment and Plan: Cardiology able to review outside records. Patient with a 25mm On-X AVR with root repair using bovine percardial patch. As above. Plan DVT prophylaxis Heparin Code status full code Subjective Date/time seen: 07/24/24 13:09 Interval history: 59yo male with COURTNEY, HTN, CKD, CHF and recent valvular surgery due to endocarditis who presented to the ER from home due to acute onset of shortness of breath and tachycardia. No issues overnight. Slept poorly. No CP or SOB. Exam Narrative: Tm 100.1 98.3 112/62 89 18 94% 3L Gen - NARD sitting at the side of the bed Chest - few basilar rhonchi o.w distant BS. HD catheter in the right upper chest CV - RRR S1/S2 with mechanical heart sounds without loud murmur. Tele showing mostly paced rhythm. Abd - Soft, NT/ND, Positive BS Ext - 1+ bilateral pedal edema. Neuro - alert and appropriate. Psych - Nml mood and affect Skin - Warm and dry Objective Data Vital Signs Vital Signs: Vital Signs - 24 hr 07/23/24 13:15 07/23/24 14:03 07/23/24 14:00 Temperature 97.3 F L 98.9 F Pulse Rate 91 98 89 Respiratory Rate 18 16 Blood Pressure 116/65 121/62 Pulse Oximetry 100 Oxygen Delivery Oxygen Flow Rate Fraction of Inspired Oxygen 07/23/24 16:00 07/23/24 16:00 07/23/24 16:00 Temperature 98.8 F Pulse Rate 91 90 Respiratory Rate 14 Blood Pressure 109/49 L Pulse Oximetry 98 98 Oxygen Delivery Nasal Cannula Oxygen Flow Rate 2 Fraction of Inspired Oxygen 07/23/24 18:00 07/23/24 19:39 07/23/24 20:00 Temperature 100.1 F H Pulse Rate 99 104 H 104 H Respiratory Rate 18 18 Blood Pressure 121/76 Pulse Oximetry 98 98 Oxygen Delivery Nasal Cannula Oxygen Flow Rate 2 Fraction of Inspired Oxygen 07/23/24 20:00 07/23/24 22:00 07/23/24 23:00 Temperature 98.5 F Pulse Rate 100 90 90 Respiratory Rate 18 Blood Pressure 106/48 L Pulse Oximetry 96 Oxygen Delivery Oxygen Flow Rate Fraction of Inspired Oxygen 07/24/24 00:00 07/24/24 00:00 07/24/24 03:30 Temperature 99.1 F Pulse Rate 90 89 89 Respiratory Rate 18 18 Blood Pressure 105/55 L Pulse Oximetry 96 95 Oxygen Delivery Nasal Cannula Oxygen Flow Rate 2 Fraction of Inspired Oxygen 07/24/24 02:00 07/24/24 03:47 07/24/24 04:00 Temperature Pulse Rate 89 89 89 Respiratory Rate 18 Blood Pressure Pulse Oximetry 95 Oxygen Delivery Nasal Cannula Oxygen Flow Rate 2 Fraction of Inspired Oxygen 07/24/24 06:00 07/24/24 07:41 07/24/24 08:00 Temperature 98.1 F Pulse Rate 89 89 89 Respiratory Rate 18 18 Blood Pressure 112/56 L Pulse Oximetry 98 98 Oxygen Delivery Nasal Cannula Oxygen Flow Rate 2 Fraction of Inspired Oxygen 21 07/24/24 08:00 07/24/24 08:00 07/24/24 10:00 Temperature Pulse Rate 89 88 89 Respiratory Rate Blood Pressure Pulse Oximetry Oxygen Delivery Oxygen Flow Rate Fraction of Inspired Oxygen 07/24/24 11:24 07/24/24 11:24 07/24/24 11:20 Temperature Pulse Rate 89 90 Respiratory Rate 18 Blood Pressure Pulse Oximetry 98 100 Oxygen Delivery Nasal Cannula Nasal Cannula Oxygen Flow Rate 2 2 Fraction of Inspired Oxygen 21 07/24/24 11:19 07/24/24 12:23 07/24/24 12:46 Temperature 98.3 F Pulse Rate 90 89 Respiratory Rate 22 H Blood Pressure 112/62 Pulse Oximetry 98 94 Oxygen Delivery Room Air Oxygen Flow Rate Fraction of Inspired Oxygen Intake/Output Intake/Output: Intake & Output 07/21/24 07/22/24 07/23/24 07/24/24 23:59 23:59 23:59 23:59 Intake Total 2330.7 1260.0 1440.0 2163.3 Output Total 2198 750 3050 Balance 132.7 510.0 -1610.0 2163.3 Meds/Results Medications: Active Medications Generic Name Dose Route Start Last Admin Trade Name Freq PRN Reason Stop Dose Admin Acetaminophen 650 mg 07/17/24 10:05 07/24/24 13:07 Acetaminophen 325 Mg Tablet PO 650 mg Q4H PRN Administration Mild Pain (1-3) or Fever Benzonatate 100 mg 07/16/24 12:58 07/24/24 07:57 Benzonatate 100 Mg Capsule PO 100 mg TID PRN Administration Cough Carvedilol 3.125 mg 07/16/24 18:00 07/23/24 17:33 Carvedilol 3.125 Mg Tablet PO 3.125 mg QPM ALLY Administration Heparin Sodium (Porcine) 6,500 units 07/17/24 08:49 07/19/24 14:41 Heparin Sodium 5,000 Units/Ml Vial IV PUSH 6,500 units PRN PRN Administration aPTT less than 55 seconds Heparin Sodium (Porcine) 3,500 units 07/17/24 08:49 07/20/24 11:27 Heparin Sodium 5,000 Units/Ml Vial IV PUSH 3,500 units PRN PRN Administration aPTT 55 - 70 seconds Heparin Sodium/Dextrose 25,000 units in 250 mls @ 20 mls/hr 07/17/24 09:15 07/24/24 13:03 Heparin Sodium/D5w 100 Units/Ml IV CONT 2,000 units/hr .[id number] ALLY 20 mls/hr Administration Protocol 2,000 UNITS/HR Cefepime HCl 1 gm in 50 mls @ 100 mls/hr 07/18/24 10:20 07/24/24 12:21 Maxipime 1 Gm/Ns 50 Ml IVPB 100 mls/hr DAILY ALLY Administration Albumin Human 50 mls @ 999 mls/hr 07/19/24 04:55 07/23/24 09:38 Albutein IVPB 08/18/24 04:54 999 mls/hr Q10M PRN Administration HYPOTENSION Lorazepam 0.5 mg 07/19/24 17:15 07/23/24 08:33 Lorazepam (*Crx) 0.5 Mg Tablet PO 0.5 mg Q6H PRN Administration Anxiety Methocarbamol 500 mg 07/16/24 08:06 11/25/24 07:57 Methocarbamol 500 Mg Tablet PO 500 mg TID PRN Administration muscle cramps Ondansetron HCl 4 mg 07/16/24 20:51 Ondansetron Inj 4 Mg/2 Ml Vial IV PUSH Q6H PRN Nausea And Vomiting Pantoprazole Sodium 40 mg 07/21/24 09:00 07/24/24 07:57 Pantoprazole 40 Mg Tablet PO 40 mg QAM ALLY Administration Sodium Zirconium Cyclosilicate 10 gm 07/16/24 13:07 07/16/24 13:11 Sodium Zirconium Cyclosilicate 10 Gm Powd.Pack PO 10 gm DAILY PRN Administration hyperkalemia Trazodone HCl 50 mg 07/17/24 21:28 07/21/24 21:25 Trazodone Hcl 50 Mg Tablet PO 50 mg HS PRN Administration Insomnia Vitamin D 4,000 units 07/16/24 09:00 07/24/24 07:58 Cholecalciferol 1,000 Units Tablet PO 4,000 units DAILY ALLY Administration Radiology Results: ITS Impressions Abdomen X-Ray 07/16/24 08:54 Impression: Pacemaker. Moderate bilateral pleural effusions. Nonspecific bowel gas pattern. Chest X-Ray 07/23/24 10:28 IMPRESSION: 1. Persistent, edema and small right and moderate-sized left pleural effusions. 2. Opacities in the left mid and bilateral lower lung zones which could represent associated atelectasis or pneumonia. Labs Labs: Laboratory Results - last 24 hr 07/24/24 05:11 WBC 9.3 RBC 2.54 L Hgb 7.1 L Hct 25.0 L MCV 98.4 MCH 28.0 MCHC 28.4 L RDW 17.7 H Plt Count 178 MPV 10.1 Immature Gran % (Auto) 0.6 H Neut % (Auto) 74.0 H Lymph % (Auto) 16.1 L [place] % (Auto) 8.0 Eos % (Auto) 0.9 Baso % (Auto) 0.4 Lymph # (Auto) 1.50 [place] # (Auto) 0.8 H Eos # (Auto) 0.1 Baso # (Auto) 0.0 Abs Immat Gran (auto) 0.06 H Absolute Neuts (auto) 6.9 H Absolute Nucleated RBC 0.000 Nucleated RBC % 0.0 Platelet Estimate Adequate Polychromasia 1+ Hypochromasia 1+ Anisocytosis 1+ Schistocytes Rare APTT 90.7 H Sodium 138 Potassium 4.6 Chloride 100 Carbon Dioxide 29 Anion Gap 9 BUN 32 H D Creatinine 3.50 H Estim Creat Clear Calc 25 Estimated GFR 18 L Glucose 107 Calcium 8.5 Phosphorus 3.7 Magnesium 2.1 Total Bilirubin 0.7 AST 23 ALT 17 Alkaline Phosphatase 176 H Total Protein 8.0 Albumin 3.4 L
--- NOTE | 2024-07-24 14:48 | PCPTNOTE ---
Attempted to see patient for PT, however patient refused due to already working with OT earlier this date.
[2024-07-24] MEDS: carvediloL 3.125 MG TABLET PO (19:45)
--- NOTE | 2024-07-24 21:19 | PC.NURSE ---
Patient transferred from IMU 200 into room 349 at 2100. Patient orientated to new room environment. No signs of distress at this time. RN will continue to monitor for this shift.
--- NOTE | 2024-07-24 21:41 | PC.NURSE ---
This RN called report to [facility]. [facility].
[2024-07-25] VITALS (24 sets, daily range): BP systolic 100–131; BP diastolic 51–86; PULSE 85–90; RESP 18–24; TEMP 36.5–37; O2SAT 95–100
[2024-07-25] MEDS: HEPARIN SOD/D5W 100 UNITS/ML 25,000 UNITS/250 ML BAG 20 UNITS IV CONT ×2 (01:44→14:16)
[2024-07-25] MEDS: ACETAMINOPHEN 325 MG TABLET 650 MG PO ×2 (04:20→14:20)
[2024-07-25 05:57] LABS: Hematocrit 26.5 % (42.0-52.0); Hemoglobin 7.6 g/dL (14.0-18.0); Mean Corpuscular HGB Conc 28.7 g/dl (32-36); Mean Corpuscular Hemoglobin 28.5 pg (26-34); Mean Corpuscular Volume 99.3 fl (80-100); Mean Platelet Volume 10.6 fl (7.4-10.4); Platelet Count Result 177 k/mm3 (150-375); Red Blood Count 2.67 M/mm3 (4.6-6.20); Red Cell Distribution Width 17.6 % (11.5-14.5); White Blood Count 8.8 K/mm3 (4.5-10.0)
[2024-07-25 06:08] LABS: Partial Thromboplastin Time 78.4 Seconds (22.3-36.8)
[2024-07-25 06:12] LABS: Anion Gap 10 mmol/L (4-12); Blood Urea Nitrogen 46 mg/dL (9-20); Calcium 8.4 mg/dL (8.4-10.2); Carbon Dioxide 27 mmol/L (22-30); Chloride 100 mmol/L (98-107); Estimated CRCL calculation 20 ml/min; Estimated Glomerular Filt Rate 14; Glucose 113 mg/dL (65-110); Sodium 137 mmol/L (137-145)
--- NOTE | 2024-07-25 08:00 | PC.NURSE ---
Paitent off of unit to dialysis
--- NOTE | 2024-07-25 09:18 | PCPTNOTE ---
Attempted to see patient for PT, however patient was in dialysis.
--- NOTE | 2024-07-25 09:53 | P.PNNP_ITS ---
Progress Note: A&P Assessment and Plan (1) Acute renal failure on dialysis: Code(s): N17.9 - Acute kidney failure, unspecified; Z99.2 - Dependence on renal dialysis Status: Acute Assessment and Plan: * as noted by last hospitalization here at [facility] * no evidence of renal recovery during hospitalization at [place] (May 2024) * etiology felt to be secondary to multifactorial ATN: * hypotension/hemodynamic instability * sepsis/infection (+ bacteremia/endocarditis) * prerenal factors * previous cardiac issues/NSTEMI * appears to be dialysis dependent since April 2024 * HD today due to iday schedule (Wednesday, Wednesday, and Wednesday) * follow trend of repeat labs and UOP to assess for potential renal recovery * however, since he had advanced CKD at baseline (and has been on dialysis previously), it is possible he maybe dialysis dependent (2) Chronic kidney disease, stage IV (severe): Code(s): N18.4 - Chronic kidney disease, stage 4 (severe) Status: Chronic Assessment and Plan: * baseline creatinine had been running ~ 3.3 - 3.8mg/dl prior to April 2024 hospitalization * felt to be secondary hypertension, vascular disease, previous obesity, COURTNEY, and left overs from his previous bouts of XOCHITL/ARF * still has had issues with metabolic acidosis and hyperkalemia at baseline requiring ongoing medical management (3) Endocarditis: Code(s): I38 - Endocarditis, valve unspecified Status: Acute Assessment and Plan: * VIGNESH on 07/20/24 with: * complex mass measuring 1.45 x 1.09 cm attached mainly to the posterior leaflet of the mechanical valve * several hypermobile serpiginous strands attached to the mass, the longest measures around 1.0 cm * the post leaflet is not moving well * mildly posteriorly directed mitral valve regurgitation. * 0.65 x 0.70 cm echogenic density attached to the left coronary cusp, most likely a vegetation. * small 0.45 x 0.31 cm echogenic density attached to the atrial side of the ant tricuspid leaflet most likely a vegetation * awaiting transfer to [place] for Cardiothoracic Surgery evaluation (4) Acute on chronic anemia: Code(s): D64.9 - Anemia, unspecified Status: Acute Assessment and Plan: * as noted on admission with a Hgb of 5.7 * chronic anemia at baseline * however, noted to have melanotic stools and hemoccult positive * warfarin on hold (on heparin gtt due to heart valves at this time) * PRBC transfusion per protocol * Gastroenterology following - s/p EGD (on 07/17) with findings noted: * of Penaloza's esophagus, hiatal hernia, gastritis, reflux esophagitis and duodenitis * no evidence of acute or recent bleeding coming from the stomach or duodenum * complicated by XOCHITL and CKD * Retacrit with HD * follow trend of H/H (5) Bacteremia: Code(s): R78.81 - Bacteremia Status: Acute Assessment and Plan: * blood cultures with Klebs aerogenes (Enterobacter) * positive blood cultures on 07/16 * blood cultures on 07/19 - negative to date * presumed source = endocarditis (see #3) * at risk for seeding of his HD catheter and pacemaker * on antibiotics * repeat culture data noted (6) Congestive heart failure: Code(s): I50.9 - Heart failure, unspecified Status: Acute Assessment and Plan: * as evidenced by admission CXR * likely worsened by severe anemia on admission * fluid removal/ultrafiltration with dialysis as tolerated * follow respiratory status (7) Heart valve replaced: Code(s): Z95.2 - Presence of prosthetic heart valve Status: Acute Assessment and Plan: * noted known 3 valve replacements * careful anticoagulation in the context of anemia - on heparin gtt given likely need for future procedures * Cardiology following as well Will continue to follow. Subjective Date/time seen: 07/25/24 09:53 Interval history: Follow-up for acute kidney injury/acute renal failure on chronic kidney disease requiring [employer]/dialysis. Tolerating dialysis treatment at the time of my visit (seen on HD at 09:45AM); no apparent distress noted when seen; denies any shortness of breath but still requiring supplement oxygen at this time; no issues/events overnight or earlier this morning. Exam Narrative: General: WD/WN male in NAD Heart: normal S1 and S2; no rub Lungs: coarse and decreased at bases Abdomen: soft, nontender, nondistended, positive bowel sounds Extremities: no cyanosis or clubbing; no edema Skin: warm and dry Objective Data Vital Signs Vital Signs: Vital Signs Temp Pulse Resp BP Pulse Ox O2 Del Method O2 Flow Rate 07/25/24 09:45 89 110/62 07/25/24 09:30 85 127/51 L 07/25/24 09:15 87 111/68 07/25/24 09:00 89 112/58 L 07/25/24 08:45 88 126/63 07/25/24 10:00 89 113/63 07/25/24 08:31 89 123/68 07/25/24 08:31 2 07/25/24 08:22 97.9 F 89 24 H 120/64 95 07/25/24 04:00 98.1 F 89 18 123/69 100 07/25/24 04:05 89 07/25/24 00:05 89 07/25/24 00:00 89 18 98 Room Air 07/25/24 00:00 98.2 F 89 18 116/70 98 07/24/24 21:13 63 07/24/24 20:00 89 07/24/24 21:00 89 20 98 Room Air 07/24/24 19:45 89 07/24/24 19:33 98.3 F 89 20 102/51 L 98 07/24/24 14:20 97.3 F L 89 20 106/53 L 98 07/24/24 16:00 89 07/24/24 16:00 89 18 94 Room Air 07/24/24 14:00 89 07/24/24 12:46 94 Room Air 07/24/24 12:23 89 Intake/Output Intake/Output: Intake & Output 07/22/24 07/23/24 07/24/24 07/25/24 23:59 23:59 23:59 23:59 Intake Total 1260.0 1440.0 3553.3 1250 Output Total 750 3050 Balance 510.0 -1610.0 3553.3 1250 Meds/Results Medications: Active Medications Generic Name Dose Route Start Last Admin Trade Name Freq PRN Reason Stop Dose Admin Acetaminophen 650 mg 07/17/24 10:05 07/25/24 04:20 Acetaminophen 325 Mg Tablet PO 650 mg Q4H PRN Administration Mild Pain (1-3) or Fever Benzonatate 100 mg 07/16/24 12:58 07/24/24 21:17 Benzonatate 100 Mg Capsule PO 100 mg TID PRN Administration Cough Carvedilol 3.125 mg 07/16/24 18:00 07/24/24 19:45 Carvedilol 3.125 Mg Tablet PO 3.125 mg QPM ALLY Administration Epoetin Parish-epbx 20,000 units 07/25/24 17:59 07/25/24 11:08 Epoetin Parish-Epbx 20,000 Units/Ml Vial IV PUSH 07/25/24 18:00 20,000 units ONCE ONE Administration Heparin Sodium (Porcine) 6,500 units 07/17/24 08:49 07/19/24 14:41 Heparin Sodium 5,000 Units/Ml Vial IV PUSH 6,500 units PRN PRN Administration aPTT less than 55 seconds Heparin Sodium (Porcine) 3,500 units 07/17/24 08:49 07/20/24 11:27 Heparin Sodium 5,000 Units/Ml Vial IV PUSH 3,500 units PRN PRN Administration aPTT 55 - 70 seconds Heparin Sodium/Dextrose 25,000 units in 250 mls @ 20 mls/hr 07/17/24 09:15 07/25/24 01:44 Heparin Sodium/D5w 100 Units/Ml IV CONT 2,000 units/hr .[id number] ALLY 20 mls/hr Administration Protocol 2,000 UNITS/HR Cefepime HCl 1 gm in 50 mls @ 100 mls/hr 07/18/24 10:20 07/24/24 12:51 Maxipime 1 Gm/Ns 50 Ml IVPB Infused DAILY ALLY Infusion Albumin Human 50 mls @ 999 mls/hr 07/19/24 04:55 07/23/24 09:38 Albutein IVPB 08/18/24 04:54 999 mls/hr Q10M PRN Administration HYPOTENSION Lorazepam 0.5 mg 07/19/24 17:15 07/23/24 08:33 Lorazepam (*Crx) 0.5 Mg Tablet PO 0.5 mg Q6H PRN Administration Anxiety Methocarbamol 500 mg 07/16/24 08:06 07/24/24 07:57 Methocarbamol 500 Mg Tablet PO 500 mg TID PRN Administration muscle cramps Ondansetron HCl 4 mg 07/16/24 20:51 Ondansetron Inj 4 Mg/2 Ml Vial IV PUSH Q6H PRN Nausea And Vomiting Pantoprazole Sodium 40 mg 07/21/24 09:00 07/25/24 11:40 Pantoprazole 40 Mg Tablet PO Not Given QAM ALLY Sodium Zirconium Cyclosilicate 10 gm 07/16/24 13:07 07/16/24 13:11 Sodium Zirconium Cyclosilicate 10 Gm Powd.Pack PO 10 gm DAILY PRN Administration hyperkalemia Trazodone HCl 50 mg 07/17/24 21:28 07/21/24 21:25 Trazodone Hcl 50 Mg Tablet PO 50 mg HS PRN Administration Insomnia Vitamin D 4,000 units 07/16/24 09:00 07/25/24 11:39 Cholecalciferol 1,000 Units Tablet PO Not Given DAILY [facility] Radiology Results: ITS Impressions Abdomen X-Ray 07/16/24 08:54 Impression: Pacemaker. Moderate bilateral pleural effusions. Nonspecific bowel gas pattern. Chest X-Ray 07/23/24 10:28 IMPRESSION: 1. Persistent, edema and small right and moderate-sized left pleural effusions. 2. Opacities in the left mid and bilateral lower lung zones which could represent associated atelectasis or pneumonia. Labs Labs: Laboratory Tests 07/25/24 05:30 07/25/24 05:30 Microbiology 07/19/24 09:20 Blood Blood Culture - Final 07/19/24 09:22 Blood Blood Culture - Final
--- NOTE | 2024-07-25 10:06 | PC.NURSE ---
RN spoke with [facility] transfer center and gave them an update via telephone. At this time there are no available beds.
[2024-07-25] MEDS: EPOETIN ALFA-EPBX 20,000 UNITS/ML VIAL 20000 UNITS IV PUSH (11:08)
[2024-07-25] MEDS: HEPARIN SODIUM 1,000 UNITS/ML VIAL 6000 UNITS IV PUSH (12:27)
--- NOTE | 2024-07-25 13:18 | P.TS_ITS ---
Transfer Discharge Sum: Prov Provider Date of admission: 07/17/24 10:31 Primary care physician: Nevaeh Sepulveda, Admitting clinician: Olivia Huston DO Consults: 07/16/24 Consult to Physician Routine Comment: Consulting Provider: Mauro Henley call or contact centre coach/ group to consult: Gastroenterology Reason for consultation: Black stools, acute on chronic anemia Has provider been notified: Yes 07/16/24 03:35 Consult to Physician Routine Comment: Consulting Provider: Erin Casey Reason for consultation: Anemia, status post valve replacement Has provider been notified: Yes 07/16/24 03:36 Consult to Physician Routine Comment: Consulting Provider: Abdirashid Delgado Reason for consultation: ESRD patient dialysis Wednesday anemic receiving blood Has provider been notified: Yes 07/16/24 08:43 Consult to Physician Routine Comment: Consulting Provider: Mauro Henley call or contact centre coach/MD group to consult: gastroenterology Reason for consultation: anemia, fobt positive Has provider been notified: Yes Receiving physician/facility: Dr Thomas at [facility] DS: Admitting Diagnosis Discharge Date 07/25/24 Admitting Diagnosis Shortness of breath DS: Discharge Diagnosis Discharge Diagnosis (1) Malaise: Code(s): R53.81 - Other malaise Status: Acute (2) Acute on chronic anemia: Code(s): D64.9 - Anemia, unspecified Status: Acute (3) Bacteremia: Code(s): R78.81 - Bacteremia Status: Acute (4) Endocarditis: Code(s): I38 - Endocarditis, valve unspecified Status: Acute (5) Presence of other heart-valve replacement: Code(s): Z95.4 - Presence of other heart-valve replacement Status: Acute (6) Melanotic stools: Code(s): K92.1 - Melena Status: Acute (7) Elevated troponin: Code(s): R79.89 - Other specified abnormal findings of blood chemistry Status: Acute (8) End-stage renal disease on hemodialysis: Code(s): N18.6 - End stage renal disease; Z99.2 - Dependence on renal dialysis Status: Acute (9) Chest pain: Qualifiers: Chest pain type: unspecified Qualified Code(s): R07.9 - Chest pain, unspecified Code(s): R07.9 - Chest pain, unspecified Status: Acute (10) Aortic valve replaced: Code(s): Z95.2 - Presence of prosthetic heart valve Status: Acute Transfer Discharge Sum: Med Medications Active and Home Medications: Home Medications cholecalciferol (vitamin D3) 50 mcg (2,000 unit) capsule 100 mcg PO DAILY #60 caps 04/07/23 [Rx Confirmed 07/16/24] sodium zirconium cyclosilicate 10 gram oral powder packet (Lokelma) 10 g PO DAILY PRN hyperkalemia 10/13/23 [History Confirmed 07/16/24] benzonatate 100 mg capsule 100 mg PO TID PRN Cough 07/16/24 [History Confirmed 07/16/24] carvedilol 3.125 mg tablet 3.125 mg PO QPM 07/16/24 [History Confirmed 07/16/24] methocarbamol 500 mg tablet 500 mg PO TID PRN muscle cramps 07/16/24 [History Confirmed 07/16/24] warfarin 3 mg tablet See Rx Instructions .Route .COMPLEX 07/16/24 [History Confirmed 07/16/24] warfarin 4 mg tablet See Rx Instructions .Route .COMPLEX 07/16/24 [History Confirmed 07/16/24] Active Medications Acetaminophen (Acetaminophen 325 Mg Tablet) 650 mg PO Q4H PRN PRN Reason: Mild Pain (1-3) or Fever Last Admin: 07/25/24 04:20 Dose: 650 mg Benzonatate (Benzonatate 100 Mg Capsule) 100 mg PO TID PRN PRN Reason: Cough Last Admin: 07/24/24 21:17 Dose: 100 mg Carvedilol (Carvedilol 3.125 Mg Tablet) 3.125 mg PO QPM ALLY Last Admin: 07/24/24 19:45 Dose: 3.125 mg Epoetin Parish-epbx (Epoetin Parish-Epbx 20,000 Units/Ml Vial) 20,000 units IV PUSH ONCE ONE Stop: 07/25/24 18:00 Last Admin: 07/25/24 11:08 Dose: 20,000 units Heparin Sodium (Porcine) (Heparin Sodium 5,000 Units/Ml Vial) 6,500 units IV PUSH PRN PRN PRN Reason: aPTT less than 55 seconds Last Admin: 07/19/24 14:41 Dose: 6,500 units Heparin Sodium (Porcine) (Heparin Sodium 5,000 Units/Ml Vial) 3,500 units IV PUSH PRN PRN PRN Reason: aPTT 55 - 70 seconds Last Admin: 07/20/24 11:27 Dose: 3,500 units Heparin Sodium/Dextrose (Heparin Sodium/D5w 100 Units/Ml) 25,000 units in 250 mls @ 20 mls/hr IV CONT .[id number] [facility]; Protocol Last Admin: 07/25/24 01:44 Dose: 2,000 units/hr, 20 mls/hr Cefepime HCl (Maxipime 1 Gm/Ns 50 Ml) 1 gm in 50 mls @ 100 mls/hr IVPB DAILY [facility] Last Infusion: 07/24/24 12:51 Dose: Infused Albumin Human (Albutein) 50 mls @ 999 mls/hr IVPB Q10M PRN PRN Reason: HYPOTENSION Stop: 08/18/24 04:54 Last Admin: 07/23/24 09:38 Dose: 999 mls/hr Lorazepam (Lorazepam (*Crx) 0.5 Mg Tablet) 0.5 mg PO Q6H PRN PRN Reason: Anxiety Last Admin: 07/23/24 08:33 Dose: 0.5 mg Methocarbamol (Methocarbamol 500 Mg Tablet) 500 mg PO TID PRN PRN Reason: muscle cramps Last Admin: 07/24/24 07:57 Dose: 500 mg Ondansetron HCl (Ondansetron Inj 4 Mg/2 Ml Vial) 4 mg IV PUSH Q6H PRN PRN Reason: Nausea And Vomiting Pantoprazole Sodium (Pantoprazole 40 Mg Tablet) 40 mg PO QAM [facility] Last Admin: 07/25/24 11:40 Dose: Not Given Sodium Zirconium Cyclosilicate (Sodium Zirconium Cyclosilicate 10 Gm Powd.Pack) 10 gm PO DAILY PRN PRN Reason: hyperkalemia Last Admin: 07/16/24 13:11 Dose: 10 gm Trazodone HCl (Trazodone Hcl 50 Mg Tablet) 50 mg PO HS PRN PRN Reason: Insomnia Last Admin: 07/21/24 21:25 Dose: 50 mg Vitamin D (Cholecalciferol 1,000 Units Tablet) 4,000 units PO DAILY [facility] Last Admin: 07/25/24 11:39 Dose: Not Given Transfer Discharge Sum: Hosp Hospital Course Hospital course: Chau Cho is a 59yo male with COURTNEY, HTN, CKD, CHF and recent valvular surgery due to endocarditis who presented to the ER from home due to acute onset of shortness of breath and tachycardia. Please see H&P for details. The following issues were addressed: (1) Malaise: Called to the room for patient not feeling well on 07/23. No specific symptoms. No clear exam evidence of CVA or flail valve. CXR reviewed showing bilateral pleural effusions with pulm edema and atelectasis. Consider PNA but on cefepime. MRSA nasal swab negative 07/16. EKG showing paced rhythm ABG 7.30/62.3/95 on 3L. Never had elevated pCO2 in the past. Mild respiratory acidosis for unclear reasons. Over sedated with Ativan? BiPAP ordered but he refused. Symptoms have resolved. Probably related to frequent prn Ativan doses; Ativan was stopped. (2) Acute on chronic anemia: Patient presented with chest pain, SOB and GNW. He was recently discharged from [facility] after his valve surgery. He has been on anticoagulation with warfarin. Vitals were stable on ED evaluation. Hemoglobin of 5.7. His recent discharge hemoglobin was 7.7. He reported dark stool and FOBT was positive. Warfarin held. He received total of 2U PRBCs. GI consulted. PPI started. EGD 07/17 showing Penaloza's esophagus, hiatal hernia, gastritis, reflux esophagitis and duodenitis. Please see report for details. There was no evidence of acute or recent bleeding coming from the stomach or duodenum to explain low Hgb. Hgb stable in the 7-8 range. Warfarin remained on hold. Heparin drip restarted after his EGD as per recommended by ball points inspector. (3) Bacteremia: Patient was here in April and found to bacteremia with Enterobacter and endocarditis. He was transferred to [facility] and underwent valve surgery. BCx drawn this admission again again show Enterobacter sensitive to Cefepime. Several sources present with dialysis catheter, dental disease, pacemaker as well as recent valve replacement. He was started on cefepime Repeat BCx Negative VIGNESH showing vegetation on the aortic, mitral and tricuspid valve. Please see report for details. Patient has been accepted by [facility] for transfer. (4) Endocarditis: Patient had VIGNESH 07/20 showing: - A complex mass measuring 1.45 x 1.09 cm attached mainly to the posterior leaflet of the mechanical mitral valve. - There are several hypermobile serpiginous strands attached to the mass, the longest measures around 1.0 cm. - The post leaflet is not moving well. - There is mild posteriorly directed mitral valve regurgitation. - There is a 0.65 x 0.70 cm echogenic density attached to the left coronary cusp of aortic valve, most likely a vegetation. - There is a small 0.45 x 0.31 cm echogenic density attached to the atrial side of the ant tricuspid leaflet most likely a vegetation (5) Presence of other heart-valve replacement: In April, VIGNESH showed aortic valve is a bicuspid aortic valve with STUART 1.0- 1.2 cm2, consistent with moderate stenosis. VIGNESH also showing vegetation posterior mitral valve. Patient was sent to [facility]. Patient now has mechanical valves with a 25mm On-X AVR with root repair using bovine pericardial patch, 31mm [place] MVR with annular repair and TVr with 28mm annuloplasty ring. Cardiology consulted. Goal INR should be 3-3.5 given fresh mechanical valves when Coumadin resumed Heparin drip for now (6) Melanotic stools: As above. Possibly a lower SB bleed, possibly AVM. HH low but stable Monitored HH (7) Elevated troponin: His troponin was elevated but remained flat. He was having CP and SOB prior to admission. Likely due to demand ischemia from anemia. Cardiology consulted. Continued heparin drip due to mechanical valve. (8) End-stage renal disease on hemodialysis: ESRD on hemodialysis recently started from April 2024 On HD Wednesday. But on holiday schedule now Nephrology consulted and appreciate their input (9) Chest pain: As above (10) Aortic valve replaced: Cardiology able to review outside records. Patient with a 25mm On-X AVR with root repair using bovine percardial patch. As above. Patient was transferred in stable condition to [facility]. Time Spent with Patient Time attestation: Total time spent providing and/or coordinating transfer services: 40 minutes Total time spent: Greater than 30 minutes Exam Narrative: AF 97.7 131/61 89 24 99% 2L Gen - NARD currently undergoing HD Chest - clear anteriroly. HD catheter in the right upper chest currently accessed CV - RRR S1/S2 with mechanical heart sounds without loud murmur. Tele showing mostly paced rhythm. Abd - Soft, NT/ND, Positive BS Ext - trace bilateral pedal edema. Neuro - alert and appropriate. Psych - Nml mood and affect Skin - Warm and dry DS: Data Data Completed and Pending Labs on day of discharge: Labs from last 24 hours 07/25/24 05:30 WBC 8.8 RBC 2.67 L Hgb 7.6 L Hct 26.5 L MCV 99.3 MCH 28.5 MCHC 28.7 L RDW 17.6 H Plt Count 177 MPV 10.6 H APTT 78.4 H Sodium 137 Potassium 5.0 Chloride 100 Carbon Dioxide 27 Anion Gap 10 BUN 46 H D Creatinine 4.30 H Estim Creat Clear Calc 20 Estimated GFR 14 L Glucose 113 H Calcium 8.4
== END 2024-07-25 15:25 | disposition short-term general hospital (02) | DRG 314 ==
LOC: ANHED 03:40 → ANHIMU 04:24 → ANH3MED 07-26 09:10
PROVIDERS: Internal Medicine; Internal Medicine Gastroenterology; Internal Medicine Interventional Cardiology; Internal Medicine Nephrology; Nurse Practitioner Acute Care; Admitting Provider Internal Medicine; Emergency Provider Emergency Medicine; PCP Family Medicine; Visit Provider Internal Medicine
PROC: 0DJ08ZZ Inspection of Upper Intestinal Tract, Via Natural or Artificial Opening Endoscopic (ICD-10-PCS; CPT 43235; principal; 2024-07-17 14:00)
PROC: B24BZZ4 Ultrasonography of Heart with Aorta, Transesophageal (ICD-10-PCS; CPT 93312; principal; 2024-07-20 13:30)
DX: T82.6XXA Infection and inflammatory reaction due to cardiac valve prosthesis, initial encounter (principal); I33.0 Acute and subacute infective endocarditis; N17.0 Acute kidney failure with tubular necrosis; N18.6 End stage renal disease; R78.81 Bacteremia; D62 Acute posthemorrhagic anemia; I13.2 Hypertensive heart and chronic kidney disease with heart failure and with stage 5 chronic kidney disease, or end stage renal disease; I50.32 Chronic diastolic (congestive) heart failure; I24.89 Other forms of acute ischemic heart disease; E87.29 Other acidosis; J98.11 Atelectasis; K92.1 Melena; T42.4X5A Adverse effect of benzodiazepines, initial encounter; K22.70 Barrett's esophagus without dysplasia; K29.30 Chronic superficial gastritis without bleeding; K44.9 Diaphragmatic hernia without obstruction or gangrene; K21.00 Gastro-esophageal reflux disease with esophagitis, without bleeding; B96.89 Other specified bacterial agents as the cause of diseases classified elsewhere; K29.80 Duodenitis without bleeding; K74.60 Unspecified cirrhosis of liver; D63.1 Anemia in chronic kidney disease; G25.81 Restless legs syndrome; G47.33 Obstructive sleep apnea (adult) (pediatric); F17.210 Nicotine dependence, cigarettes, uncomplicated; Z99.2 Dependence on renal dialysis; Z95.2 Presence of prosthetic heart valve; Z95.0 Presence of cardiac pacemaker; Z79.01 Long term (current) use of anticoagulants; E66.9 Obesity, unspecified; Z68.32 Body mass index [BMI] 32.0-32.9, adult
CPT/HCPCS: 36415; 36430; 36600; 71045; 74018; 80048; 80053; 80069; 82274; 82728; 82805; 82948; 83540; 83550; 83735; 83880; 84100; 84132; 84484; 85014; 85018; 85025; 85027; 85046; 85610; 85730; 86140; 86706; 86850; 86900; 86901; 86923; 87040; 87077; 87186; 87340; 87641; 93005; 93312; 93320; 93325; 96361; 97161; 97165; 97530; 97535; 99285; A9270; G0257; G0378; J0692; J0696; J1644; J2003; J2270; J2470; J2704; J7030; J7040; J7050; P9016; P9047; Q4081; Q5105